=== PATIENT | male | born 1945 ===

== ENCOUNTER 2016-10-10 07:58 | Inpatient (IN) | payer MEDICARE ==
[2016-10-10 07:58] VITALS: BMI 40.6
[2016-10-10 10:24] LABS: BASO # 0.1 K/uL (0.0-0.2); BASO % 0.8 % (0.0-2.0); EOS # 0.3 K/uL (0.0-0.7); EOS % 2.6 % (0.0-4.0); HEMATOCRIT 36.6 % (35.0-51.0); MEAN CELL VOLUME 89.4 fL (80.0-94.0); MEAN CORPUSCULAR HGB CONC 33.6 g/dL (33.0-37.0); MEAN PLATELET VOLUME 9.3 fL (7.2-11.7); MONO # 0.6 K/uL (0.0-0.8); MONO % 6.2 % (0.0-10.0); RED CELL DISTRIBUTION WIDTH 13.2 % (11.5-14.5); WHITE BLOOD COUNT 10.5 K/uL (4.8-10.8)
--- NOTE | 2016-10-10 10:25 | CT ---
PROCEDURE: CT HEAD WITHOUT CONTRAST. HISTORY: falling/weakness COMPARISON: None available. TECHNIQUE: Axial computed tomography images were obtained through the head/brain without intravenous contrast. Radiation dose: Total exam DLP = 1234.94 mGy-cm. This CT exam was performed using one or more of the following dose reduction techniques: Automated exposure control, adjustment of the mA and/or kV according to patient size, and/or use of iterative reconstruction technique. FINDINGS: HEMORRHAGE: No intracranial hemorrhage. BRAIN: Diffuse atrophy with prominence of the ventricles and sulci noted. More focal region of atrophy noted within the left parietal lobe. No mass effect or edema. Dense intracranial atherosclerosis. Scattered periventricular and subcortical white matter hypodensities, which are nonspecific, but often seen with chronic microvascular ischemic disease. Encephalomalacia adjacent to the right occipital horn lateral ventricle. Tiny bilateral lacunar type infarcts involving the basal ganglia. Please note that MRI with diffusion imaging is more sensitive in the detection of acute ischemic event. VENTRICLES: No hydrocephalus. CALVARIUM: Unremarkable. PARANASAL SINUSES: Unremarkable as visualized. No significant inflammatory changes. MASTOID AIR CELLS: Unremarkable as visualized. No inflammatory changes. OTHER FINDINGS: None. IMPRESSION: Atrophy as above. Nonspecific white matter changes. Encephalomalacia adjacent to the right occipital horn lateral ventricle. Tiny bilateral lacunar type infarcts involving the basal ganglia. Please note that MRI with diffusion imaging is more sensitive in the detection of acute ischemic event.
[2016-10-10 10:33] LABS: INR 0.9
[2016-10-10 10:35] LABS: CHLORIDE 103 mmol/L (98-107); SODIUM 138 mmol/L (132-148)
[2016-10-10 10:37] LABS: BILIRUBIN,TOTAL 0.7 mg/dL (0.2-1.3); GFR AFRICAN-AMERICAN > 60
[2016-10-10 10:38] LABS: ALKALINE PHOSPHATASE 58 U/L (38-126); ALT/SGPT 33 U/L (21-72); AST/SGOT 24 U/L (17-59); BLOOD UREA NITROGEN 33 mg/dL (9-20); CALCIUM 9.2 mg/dl (8.6-10.4); CARBON DIOXIDE 24 mmol/L (22-30); GLUCOSE,RANDOM 115 mg/dL (75-110); TOTAL PROTEIN 7.7 g/dL (6.3-8.3)
[2016-10-10 11:30] LABS: RBC URINE 1 /hpf (0-3); URINE BACTERIA RARE (<OCC); URINE BILIRUBIN NEGATIVE (NEGATIVE); URINE BLOOD NEGATIVE (NEGATIVE); URINE COLOR Yellow (YELLOW); URINE GLUCOSE (UA) NORMAL (Normal); URINE KETONE NEGATIVE (NEGATIVE); URINE LEUKOCYTE ESTERASE 2+ Leu/uL (Negative); URINE PROTEIN 2+ mg/dL (NEGATIVE); URINE UROBILINOGEN NORMAL mg/dL (0.2-1.0); WBC URINE 19 /hpf (0-5)
--- NOTE | 2016-10-10 12:40 | C.PDOC ---
History Of Present Illness The patient, a 71 y/o male, is brought to the ED by family member for evaluation of generalized weakness which began a few days ago. As per family, patient is ambulatory at baseline; he able to ambulate throughout the house and is able to walk within short distances when outdoors. Within the past two days, patient underwent two episodes of falls caused by weakness. Patient was found on the floor by his son, who was able to assistant accounting manager him with standing up. Today, patient fell and was unable to get up without assistance. Patient denies head injury, LOC, or any other injuries but presents for evaluation of his severe weakness. 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 Family states patient was diagnosed with overactive bladder discontinued use of his prescribed Lasix around 2 months ago. Otherwise, patient denies fever, chills, abdominal pain, back pain, nausea, vomiting, extremity numbness/weakness. Chief Complaint (Nursing): Weakness/Neurological Deficit History Per: Patient, Family History/Exam Limitations: no limitations Onset/Duration Of Symptoms: Days Current Symptoms Are (Timing): Still Present Activity At Onset Of Symptoms: Standing Associated Symptoms Preceding Syncopal Episode: No Predromal Symptoms (Sudden Onset) Seizure Or Post-ictal Symptoms: None Fall Associated With With Symptoms: No Injury As Result Of Fall Additional History Per: Patient, Family Past Medical History Reviewed: Historical Data, Nursing Documentation, Vital Signs Vital Signs: Last Vital Signs Temp 97.7 F 10/10/16 14:40 Pulse 82 10/10/16 14:40 Resp 18 10/10/16 14:40 BP 171/85 H 10/10/16 18:14 Pulse Ox 98 10/10/16 16:16 - Medical History PMH: Arthritis, HTN, Peripheral Edema Denies: Chronic Kidney Disease - [facility] Procedures INSPECTION OF BLADDER, ENDO (06/21/15) RESECTION OF PROSTATE, ENDO (06/21/15) Family History: States: No Known Family Hx - Social History Hx Alcohol Use: No Hx Substance Use: No - Immunization History Hx Tetanus Toxoid Vaccination: No Hx Influenza Vaccination: Yes Hx Pneumococcal Vaccination: Yes Review Of Systems Except As Marked, All Systems Reviewed And Found Negative. Constitutional: Positive for: Weakness (generalized ). Negative for: Fever, Chills Gastrointestinal: Negative for: Nausea, Vomiting, Abdominal Pain Musculoskeletal: Negative for: Back Pain Neurological: Negative for: Other (LOC, head injury ) Physical Exam - Physical Exam Appears: Non-toxic, No Acute Distress, Other (+obese ) Skin: Normal Color, Warm, Dry Head: Atraumatic, Normacephalic, No Tenderness, No Abrasion, No Laceration Eye(s): bilateral: Normal Inspection, PERRL, EOMI Ear(s): Bilateral: Normal Nose: Normal, No Discharge Oral Mucosa: Moist Throat: Normal, No Erythema, No Exudate Neck: Normal ROM, Supple Chest: Symmetrical, No Deformity, No Tenderness Cardiovascular: Rhythm Regular, No Murmur Respiratory: Decreased Breath Sounds (at bilateral bases ), No Rales, No Rhonchi , No Wheezing Gastrointestinal/Abdominal: Soft, No Tenderness, No Guarding, No Rebound Back: Normal Inspection, No Vertebral Tenderness, No Paraspinal Tenderness Extremity: Normal ROM, No Tenderness, No Calf Tenderness, Capillary Refill ( less than 2 seconds ), No Deformity, Swelling (3+ edema to bilateral lower extremities ) Pulses: Left Dorsalis Pedis: Normal, Right Dorsalis Pedis: Normal Neurological/Psych: Oriented x3, Normal Speech, Normal Cognition, Other (no focal deficits ) Gait: Steady ED Course And Treatment - Laboratory Results Result Diagrams: 10/10/16 10:21 10/10/16 10:21 ECG: Interpreted By Me, Viewed By Me ECG Rhythm: Sinus Rhythm Interpretation Of ECG: Sinus Rhythm at rate 80 with first degree AV block. Rate From EC O2 Sat by Pulse Oximetry: 98 (on RA) Pulse Ox Interpretation: Normal - Other Rad CXR X-Ray: Interpreted by Me, Viewed By Me, Read By Radiologist Interpretation: Accession No. : [id number]. Patient Name / ID : RAHAT MORELAND / [id number]. Exam Date : 10/10/2016 08:50:36 ( Approved ). Study Comment : Sex / Age : M / 71Y. Creator : Babita Earl MD. Dictator : Babita Earl MD. Ruby Engineer : Dental Surgeon : Babita Earl MD. Approver2 : Report Date : 10/10/2016 13:32:24. My Comment : . HISTORY: falling/weakness. COMPARISON: Chest x-ray performed 06/07/15. TECHNIQUE: Chest, one view. FINDINGS: Examination limited by habitus and hypoinflation. The patient's chin obscures evaluation of the lung apices. The left lateral chest wall/costophrenic angle excluded from view. LUNGS: No focal consolidation. Please note that chest x-ray has limited sensitivity for the detection of pulmonary masses. PLEURA: No significant pleural effusion identified. No definite pneumothorax . CARDIOVASCULAR: Cardiomegaly. Atherosclerotic calcifications of the aorta. OSSEOUS STRUCTURES: Degenerative changes. VISUALIZED UPPER ABDOMEN: Unremarkable. OTHER FINDINGS: None. IMPRESSION: Limited study. Cardiomegaly. Dense atherosclerotic calcifications of the aorta. Hypoinflation. - CT Scan/US CT Head Other Rad Studies (CT/US): Interpreted By Me, Read By Radiologist, Radiology Report Reviewed CT/US Interpretation: Accession No. : [id number]. Patient Name / ID : RAHAT MORELAND / [id number]. Exam Date : 10/10/2016 09:32:11 ( Approved ). Study Comment : Sex / Age : M / 71Y. Creator : Babita Earl MD. Dictator : Babita Earl MD. Ruby Engineer : Dental Surgeon : Babita Earl MD. Approver2 : Report Date : 10/10/2016 10:24:03. My Comment : . PROCEDURE: CT HEAD WITHOUT CONTRAST. HISTORY: falling/weakness. COMPARISON: None available. TECHNIQUE: Axial computed tomography images were obtained through the head/brain without intravenous contrast. Radiation dose: Total exam DLP = 1234.94 mGy-cm. This CT exam was performed using one or more of the following dose reduction techniques: Automated exposure control, adjustment of the mA and/or kV according to patient size, and/or use of iterative reconstruction technique. FINDINGS: HEMORRHAGE: No intracranial hemorrhage. BRAIN: Diffuse atrophy with prominence of the ventricles and sulci noted. More focal region of atrophy noted within the left parietal lobe. No mass effect or edema. Dense intracranial atherosclerosis. Scattered periventricular and subcortical white matter hypodensities, which are nonspecific, but often seen with chronic microvascular ischemic disease. Encephalomalacia adjacent to the right occipital horn lateral ventricle. Tiny bilateral lacunar type infarcts involving the basal ganglia. Please note that MRI with diffusion imaging is more sensitive in the detection of acute ischemic event. VENTRICLES: No hydrocephalus. CALVARIUM: Unremarkable. PARANASAL SINUSES: Unremarkable as visualized. No significant inflammatory changes. MASTOID AIR CELLS: Unremarkable as visualized. No inflammatory changes. OTHER FINDINGS: None. IMPRESSION: Atrophy as above. Nonspecific white matter changes. Encephalomalacia adjacent to the right occipital horn lateral ventricle. Tiny bilateral lacunar type infarcts involving the basal ganglia. Please note that MRI with diffusion imaging is more sensitive in the detection of acute ischemic event. Progress Note: CT Head, EKG, CXR, and labs ordered and reviewed. Experienced difficulty with IV access on patient, so PICC line was ordered. Nurse was eventually able to find IV access, so PICC line ordered was canceled. Case was d /w who accepted patient to [facility] for observation. Disposition - Disposition Disposition: HOSPITALIZED Disposition Time: 16:15 Condition: FAIR - Clinical Impression Clinical Impression: Weakness, Multiple falls, Near syncope - PA / FOOD PHOTOGRAPHER / Resident Statement MD/DO has reviewed & agrees with the documentation as recorded. - Scribe Statement The provider has reviewed the documentation as recorded by the Scribe (Maura Green) All medical record entries made by the Scribe were at my direction and personally dictated by me. I have reviewed the chart and agree that the record accurately reflects my personal performance of the history, physical exam, medical decision making, and the department course for this patient. I have also personally directed, reviewed, and agree with the discharge instructions and disposition. Decision To Admit - Pt Status Changed To: Hospital Disposition Of: Observation - . Bed Request Type: Telemetry Admitting Physician: Naty Green Patient Diagnosis: Weakness, Multiple falls, Near syncope
--- NOTE | 2016-10-10 13:34 | RAD ---
HISTORY: falling/weakness COMPARISON: Chest x-ray performed 06/07/15 TECHNIQUE: Chest, one view. FINDINGS: Examination limited by habitus and hypoinflation. The patient's chin obscures evaluation of the lung apices. The left lateral chest wall/costophrenic angle excluded from view. LUNGS: No focal consolidation. Please note that chest x-ray has limited sensitivity for the detection of pulmonary masses. PLEURA: No significant pleural effusion identified. No definite pneumothorax . CARDIOVASCULAR: Cardiomegaly. Atherosclerotic calcifications of the aorta. OSSEOUS STRUCTURES: Degenerative changes. VISUALIZED UPPER ABDOMEN: Unremarkable. OTHER FINDINGS: None. IMPRESSION: Limited study. Cardiomegaly. Dense atherosclerotic calcifications of the aorta. Hypoinflation.
--- NOTE | 2016-10-10 18:06 | CP.PCM.HP ---
Past Patient History - Infectious Disease Hx of Infectious Diseases: None - Past Medical History & Family History Past Medical History?: Yes - Past Social History Smoking Status: Never Smoked - CARDIAC Hx Hypertension: Yes Hx Peripheral Edema: Yes - PULMONARY Hx Respiratory Disorders: No - NEUROLOGICAL Hx Neurological Disorder: Yes HX Cerebrovascular Accident: Yes (x2) - HEENT Hx HEENT Problems: Yes Hx Cataracts: Yes (BILAT) - RENAL Hx Chronic Kidney Disease: No - ENDOCRINE/METABOLIC Hx Endocrine Disorders: Yes Hx Diabetes Mellitus Type 2: Yes - HEMATOLOGICAL/ONCOLOGICAL Hx Blood Disorders: No - INTEGUMENTARY Hx Dermatological Problems: No - MUSCULOSKELETAL/RHEUMATOLOGICAL Hx Arthritis: Yes - GASTROINTESTINAL Hx Gastrointestinal Disorders: No - GENITOURINARY/GYNECOLOGICAL Hx Genitourinary Disorders: Yes Hx Prostate Cancer: Yes (per md) - PSYCHIATRIC Hx Substance Use: No - SURGICAL HISTORY Hx Surgeries: Yes Hx Cataract Extraction: Yes (bilat) Other/Comment: I/D RECTAL ABSCESS X 2 - ANESTHESIA Hx Anesthesia: Yes Hx Anesthesia Reactions: No Hx Malignant Hyperthermia: No Meds Allergies/Adverse Reactions: Allergies Allergy/AdvReac Type Severity Reaction Status Date / Time No Known Allergies Allergy Verified 03/13/16 12:32 Results - Vital Signs Recent Vital Signs: Last Vital Signs Temp 97.7 F 10/10/16 14:40 Pulse 82 10/10/16 14:40 Resp 18 10/10/16 14:40 BP 166/84 H 10/10/16 14:40 Pulse Ox 98 10/10/16 16:16 - Labs Result Diagrams: 10/10/16 10:21 10/10/16 10:21 Assessment & Plan - Assessment and Plan (Free Text) Plan: home med neuro ct head [place] same neurowatch protnix lovenox
[2016-10-10] MEDS: Rosuvastatin Calcium 2.5 mg Tab PO SCH (21:29)
[2016-10-10] MEDS: Enoxaparin 120 mg Syringe SC SCH (22:10)
[2016-10-11] MEDS ORDERED: METFORMIN HCL PO SCH ×3 (10:00)
[2016-10-11] MEDS ORDERED: Home Med 1 UNIT (Mirabegron [Myrbetriq] 50 MG) PO SCH (10:00)
[2016-10-11] MEDS ORDERED: SITAGLIPTIN PHOS PO SCH (10:00)
[2016-10-11] MEDS ORDERED: [UNRECOGNIZED DRUG - OTHER] PO SCH (10:00)
[2016-10-11] MEDS ORDERED: GLIPIZIDE PO SCH ×2 (10:00)
[2016-10-11] MEDS ORDERED: Pneumococcal 23-Valent Vaccine IM ONE (10:00)
[2016-10-11] MEDS: Enoxaparin 120 mg Syringe SC SCH (11:35)
[2016-10-11] MEDS: Omega-3-Acid Ethyl Esters 1 GM Cap PO SCH ×2 (11:35→18:00)
[2016-10-11] MEDS: Multiple Vitamins Tab PO SCH (11:35)
[2016-10-11] MEDS: (Novolog) Insulin Aspart, Recombinant 100 u/ml 10 ml vial SC SCH ×3 (14:21→21:33)
--- NOTE | 2016-10-11 14:40 | CP.PCM.PN ---
Subjective - Date & Time of Evaluation Date of Evaluation: 10/11/16 Time of Evaluation: 10:20 - Subjective Subjective: clinically same Objective - Vital Signs/Intake and Output Vital Signs (last 24 hours): Temp Pulse Resp BP Pulse Ox 98.1 F 88 20 160/75 H 95 10/11/16 08:10 10/11/16 12:40 10/11/16 08:10 10/11/16 08:10 10/11/16 12:40 Intake and Output: 10/11/16 10/11/16 06:59 18:59 Intake Total 300 Output Total 400 Balance -100 - Medications Medications: Current Medications Acetaminophen (Tylenol 325mg Tab) 650 mg PO Q6 PRN PRN Reason: Pain, moderate (4-7) Aspirin (Aspirin Chewable) 81 mg PO DAILY [facility] Last Admin: 10/11/16 11:35 Dose: 81 mg Clopidogrel Bisulfate (Plavix) 75 mg PO DAILY [facility] Last Admin: 10/11/16 11:35 Dose: 75 mg Enoxaparin Sodium (Lovenox) 120 mg SC Q12 [facility] Last Admin: 10/11/16 11:35 Dose: 120 mg Home Med (Dimercaptopropanesulfonate Sod) 1 tab PO DAILY [facility] Home Med (Mirabegron [Myrbetriq]) 50 mg PO BID [facility] Home Med (Sitagliptin Phos/Metformin Hcl [Janumet 50-500 Mg Tablet]) 1 each PO BID [facility] Home Med (Glipizide/Metformin Hcl [Glipizide-Metformin 5-500 Mg]) 1 tab PO BID [facility] Insulin Aspart (Novolog) 0 unit SC ACHS [facility] PRN Reason: Protocol Last Admin: 10/11/16 14:21 Dose: 4 unit Losartan Potassium (Cozaar) 50 mg PO DAILY [facility] Last Admin: 10/11/16 11:35 Dose: 50 mg Multivitamins (Hexavitamin) 1 tab PO DAILY [facility] Last Admin: 10/11/16 11:35 Dose: 1 tab [id number] Ethyl Esters (Lovaza) 1 gm PO BID [facility] Last Admin: 10/11/16 11:35 Dose: 1 gm Pregabalin (Lyrica) 75 mg PO DAILY [facility] Last Admin: 10/11/16 11:35 Dose: 75 mg Rosuvastatin Calcium (Crestor) 2.5 mg PO HS [facility] Last Admin: 10/10/16 21:29 Dose: 2.5 mg - Labs Labs: PT 10.7 SECONDS (9.7-12.2) 10/10/16 10:21 INR 0.9 10/10/16 10:21 APTT 30 SECONDS (21-34) 10/10/16 10:21 - Constitutional Appears: Well - Head Exam Head Exam: ATRAUMATIC, NORMAL INSPECTION, NORMOCEPHALIC - Eye Exam Eye Exam: EOMI, Normal appearance, PERRL Pupil Exam: NORMAL ACCOMODATION, PERRL - ENT Exam ENT Exam: Mucous Membranes Moist, Normal Exam - Neck Exam Neck Exam: Full ROM, Normal Inspection. absent: Lymphadenopathy - Respiratory Exam Respiratory Exam: Decreased Breath Sounds - Cardiovascular Exam Cardiovascular Exam: REGULAR RHYTHM, +S1, +S2 - GI/Abdominal Exam GI & Abdominal Exam: Soft, Diminished Bowel Sounds - Rectal Exam Rectal Exam: Deferred
--- NOTE | 2016-10-11 15:07 | VASCLAB ---
PROCEDURE: Lower Extremity Venous Duplex Exam. HISTORY: DVT PRIORS: None. TECHNIQUE: Bilateral common femoral, femoral, popliteal and posterior tibial, peroneal and great saphenous veins were evaluated. Flow was assessed with color Doppler, compressibility, assessment of phasic flow and augmentation response. Report prepared by NITISH Vázquez, RVT FINDINGS: RIGHT: 1. Common Femoral Vein: 1.1. Compressibility - Fully compressible: Thrombus - None : Flow - Phasic: Augmentation -Normal: Reflux - None. 2. Femoral Vein: 2.1. Compressibility - Fully compressible: Thrombus - None : Flow - Phasic: Augmentation -Normal: Reflux - None. 3. Popliteal Vein: 3.1. Compressibility - Fully compressible: Thrombus - None : Flow - Phasic: Augmentation -Normal: Reflux - None. 4. Posterior Tibial Vein: 4.1. Compressibility - Fully compressible: Thrombus - None: Flow - Phasic: Augmentation -Normal: Reflux - None. 5. Peroneal Vein: 5.1. Compressibility - Fully compressible: Thrombus - None: Flow - Phasic: Augmentation -Normal: Reflux - None. 6. Great Saphenous Vein: 6.1. Compressibility - Fully compressible: Thrombus - None: Flow - Phasic: Augmentation - Normal: Reflux - None. LEFT: 1. Common Femoral Vein: 1.1. Compressibility - Fully compressible: Thrombus - None: Flow - Phasic: Augmentation -Normal: Reflux - None. 2. Femoral Vein: 2.1. Compressibility - Fully compressible: Thrombus - None: Flow - Phasic: Augmentation -Normal: Reflux - None. 3. Popliteal Vein: 3.1. Compressibility - Fully compressible: Thrombus - None : Flow - Phasic: Augmentation -Normal: Reflux - None. 4. Posterior Tibial Vein: 4.1. Compressibility - Fully compressible: Thrombus - None: Flow - Phasic: Augmentation -Normal: Reflux - None. 5. Peroneal Vein: 5.1. Compressibility - Fully compressible: Thrombus - None: Flow - Phasic: Augmentation -Normal: Reflux - None. 6. Great Saphenous Vein: 6.1. Compressibility - Fully compressible: Thrombus - None: Flow - Phasic: Augmentation - Normal: Reflux - None. OTHER FINDINGS: Right: None significant. Left: None significant. IMPRESSION: Right: No evidence of deep or superficial vein thrombosis of the right lower extremity. Normal valve function noted of the right side. Left: No evidence of deep or superficial vein thrombosis of the left lower extremity. Normal valve function noted of the left side.
[2016-10-11] MEDS: Rosuvastatin Calcium 2.5 mg Tab PO SCH (22:04)
[2016-10-12] MEDS: (Novolog) Insulin Aspart, Recombinant 100 u/ml 10 ml vial SC SCH ×4 (09:37→22:57)
[2016-10-12] MEDS: Omega-3-Acid Ethyl Esters 1 GM Cap PO SCH ×2 (09:39→18:30)
[2016-10-12] MEDS: Multiple Vitamins Tab PO SCH (09:39)
[2016-10-12] MEDS: Enoxaparin 40 mg Syringe SC SCH (09:45)
--- NOTE | 2016-10-12 12:02 | CARD ---
APPROVED REPORT EKG Measurement Heart [id number] OR [id number] <Conclusion> Sinus rhythm with 1st degree AV block Left axis deviation Possible Anterior infarct, age undetermined Abnormal ECG
--- NOTE | 2016-10-12 18:27 | CP.PCM.PN ---
Subjective - Date & Time of Evaluation Date of Evaluation: 10/12/16 Objective - Vital Signs/Intake and Output Vital Signs (last 24 hours): Temp Pulse Resp BP Pulse Ox 98.1 F 82 20 174/84 H 96 10/12/16 15:29 10/12/16 15:29 10/12/16 15:29 10/12/16 15:29 10/12/16 15:29 - Medications Medications: Current Medications Acetaminophen (Tylenol 325mg Tab) 650 mg PO Q6 PRN PRN Reason: Pain, moderate (4-7) Last Admin: 10/12/16 03:37 Dose: 650 mg Aspirin (Aspirin Chewable) 81 mg PO DAILY [facility] Last Admin: 10/12/16 09:39 Dose: 81 mg Clopidogrel Bisulfate (Plavix) 75 mg PO DAILY [facility] Last Admin: 10/12/16 09:39 Dose: 75 mg Enoxaparin Sodium (Lovenox) 40 mg SC DAILY [facility] Last Admin: 10/12/16 09:45 Dose: 40 mg Home Med (Dimercaptopropanesulfonate Sod) 1 tab PO DAILY [facility] Home Med (Mirabegron [Myrbetriq]) 50 mg PO BID [facility] Home Med (Sitagliptin Phos/Metformin Hcl [Janumet 50-500 Mg Tablet]) 1 each PO BID [facility] Home Med (Glipizide/Metformin Hcl [Glipizide-Metformin 5-500 Mg]) 1 tab PO BID [facility] Insulin Aspart (Novolog) 0 unit SC ACHS [facility] PRN Reason: Protocol Last Admin: 10/12/16 17:35 Dose: 3 unit Losartan Potassium (Cozaar) 50 mg PO DAILY [facility] Last Admin: 10/12/16 09:39 Dose: 50 mg Multivitamins (Hexavitamin) 1 tab PO DAILY [facility] Last Admin: 10/12/16 09:39 Dose: 1 tab Ydlga-[id number] Ethyl Esters (Lovaza) 1 gm PO BID [facility] Last Admin: 10/12/16 09:39 Dose: 1 gm Pregabalin (Lyrica) 75 mg PO DAILY [facility] Last Admin: 10/12/16 09:39 Dose: 75 mg Rosuvastatin Calcium (Crestor) 2.5 mg PO HS [facility] Last Admin: 10/11/16 22:04 Dose: 2.5 mg - Labs Labs: PT 10.7 SECONDS (9.7-12.2) 10/10/16 10:21 INR 0.9 10/10/16 10:21 APTT 30 SECONDS (21-34) 10/10/16 10:21
--- NOTE | 2016-10-12 19:47 | CON ---
DATE: 10/12/2016 REASON FOR CONSULTATION: Leg weakness and frequent falls. CHIEF COMPLAINT: The patient was admitted with a history of leg weakness. From neurological point of view, I was called in to evaluate his leg weakness. HISTORY OF PRESENT ILLNESS: The patient is a 71-year-old right-handed heavily built, morbidly obese, right-handed male in usual state of health as per his stating that he lost his ability of walking for the last 2 months. Lately he was not able to walk, as a way he is mostly is restricted in the bed or chair. The risk of fall is potentially there, that made him not walk. No history of fall, no history of recent fall, no history of loss of consciousness , no history of head trauma. PAST MEDICAL HISTORY: Significant to stroke on his left side, right-sided weakness as per the history in 1999 and he had another stroke, could not able to recall what was the manifestation from the stroke in last April. The patient also suffering from hypertension, non-insulin dependent diabetes mellitus. SOCIAL HISTORY: Current status of smoking. He never smoked. No history of alcohol use. 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 ALLERGIES: No known allergies. REVIEW OF SYSTEMS: As per H and P. MEDICATIONS: Aspirin, Cozaar, Crestor, Lyrica, Lovenox, insulin. PHYSICAL EXAMINATION: VITAL SIGNS: Blood pressure 174/84, mean arterial pressure 114, respiratory rate 16, temperature afebrile. NECK: Supple. No carotid bruit. HEART: Sounds regular. There is evidence of systolic murmur heard. EXTREMITIES: Both legs are externally rotated with 1+ pitting edema. NEUROLOGIC EXAMINATION: MENTAL STATUS EXAMINATION: He is awake, alert, oriented to person, place, and time. Speech is mildly dysarthric; however, he was able to communicate and follows 1 to 2-step command, with significant right and left confusion. CRANIAL NERVE EXAMINATION: Visual field: Responds to visual threat; however, significant weakness of all ocular movement, particularly vertical gaze is admitted. Good corneal reflex. Good gag reflex. MOTOR: He was able to lift both upper extremities against gravity. While keeping hands straight in curving of the fingers noted on his right side. He has a significant weakness of the right leg to compare with the left leg. Both legs are weak with a strength of 4/5. DEEP TENDON REFLEXES: Biceps, brachioradialis, triceps, biceps 2+, left side 1+ . Both knees, both ankles are absent. Plantars are mute. SENSORY EXAMINATION: Responds to pain symmetrically on both sides. COORDINATION: [id number] mild dysmetria on both sides. GAIT: Deferred at this time. 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 The patient also suffering from significant bilateral symmetric sensory and motor neuropathy. His current examination of the eye movement is significantly decreased vertical movement. There is a possibility of progressive supranuclear palsy, which is degenerative disease which also another possibility if above workup is negative. CT of the head reviewed by me showed diffuse atrophy with encephalomalacia seen on both MCA territory distribution and significant periventricular subcortical infarct also noted. LABORATORY DATA: BLOOD WORKUP: WBC 10.5, hemoglobin 12.3, hematocrit 36.6, platelet 206. PT 10.7, INR 0.9, PTT 30. Sodium 138, potassium 5.0, chloride 103, BUN 33, creatinine 1.4, glucose 238. Urinalysis shows 2+ esterase, 2+ protein. RECOMMENDATIONS: 1. MRI of the brain. 2. Carotid Doppler. 3. EEG. 4. Blood workup as per the order. 5. The patient should be kept on fall precaution and bedside physical therapy should be started. The patient's weight reduction, diabetic control and blood pressure control been discussed well with the patient as well as his . The patient also recommended to have polysomnogram, which should rule in or out central sleep apnea versus obstructive sleep apnea, which could be the considerable hidden risk factors, should be treated at present. In the meantime, I would continue the current management with antiplatelets. The patient should benefit from a cardiac workup as well during this admission. Jesus Zimmerman MD cc: [id number] TT: 10/12/2016 19:46:26 Confirmation # [id number] Dictation # [id number] jn LENORA
[2016-10-12] MEDS: Rosuvastatin Calcium 2.5 mg Tab PO SCH (21:02)
[2016-10-12 21:05] LABS: THYROID STIMULATING HORMONE 1.26 mIU/L (0.46-4.68)
[2016-10-12 21:40] LABS: FOLATE > 20.0 ng/mL
[2016-10-12 21:59] LABS: FREE T4 1.41 ng/dL (0.78-2.19)
--- NOTE | 2016-10-13 07:49 | PN ---
DATE: 10/13/2016 TIME OF EVALUATION: 7:25 a.m. NEUROLOGICAL PROBLEM: Ataxia versus leg weakness secondary to peripheral neuropathy. PHYSICAL EXAMINATION: VITAL SIGNS: Blood pressure 152/80, mean arterial pressure of 104, respiratory rate 18, temperature 98 degrees Fahrenheit, pulse rate 81. NEUROLOGIC: The patient is awake, alert. Speech seems to be mildly dysarthric. Pharyngeal pooling of saliva also noted. Rest of the examination is unchanged. He could move all 4 extremities against gravity with asymmetri c reflexes also noted earlier. 1. The patient agreed to go MRI unless he gets sedation. 2. DVT prophylaxis. 3. Get him out of the bed and physical therapy should be entertained as early as possible. 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 This has been discussed with him as well as his . The patient will be followed closely. The workup is in progress. Jesus Zimmerman MD cc: [id number] TT: 10/13/2016 07:48:38 Confirmation # [id number] Dictation # [id number]
[2016-10-13] MEDS: (Novolog) Insulin Aspart, Recombinant 100 u/ml 10 ml vial SC SCH ×4 (08:27→21:48)
[2016-10-13] MEDS: Multiple Vitamins Tab PO SCH (10:15)
[2016-10-13] MEDS: Omega-3-Acid Ethyl Esters 1 GM Cap PO SCH ×2 (10:15→17:51)
[2016-10-13] MEDS: Enoxaparin 40 mg Syringe SC SCH (10:15)
[2016-10-13 11:20] LABS: BASO % 0.3 % (0.0-2.0); EOS # 0.2 K/uL (0.0-0.7); HEMATOCRIT 37.9 % (35.0-51.0); LYMPH # 1.3 K/uL (1.0-4.3); LYMPH % 13.6 % (20.0-40.0); MEAN CELL VOLUME 88.8 fL (80.0-94.0); MEAN CORPUSCULAR HEMOGLOBIN 29.4 pg (27.0-31.0); MEAN CORPUSCULAR HGB CONC 33.1 g/dL (33.0-37.0); MEAN PLATELET VOLUME 9.5 fL (7.2-11.7); MONO # 0.8 K/uL (0.0-0.8); MONO % 8.5 % (0.0-10.0); RED CELL DISTRIBUTION WIDTH 13.1 % (11.5-14.5); WHITE BLOOD COUNT 9.3 K/uL (4.8-10.8)
[2016-10-13 11:35] LABS: CHLORIDE 100 mmol/L (98-107)
[2016-10-13 11:36] LABS: POTASSIUM 4.2 mmol/L (3.6-5.2); SODIUM 135 mmol/L (132-148)
[2016-10-13 11:38] LABS: ALB/GLOB RATIO 0.8 (1.0-2.1); ALKALINE PHOSPHATASE 65 U/L (38-126); ALT/SGPT 60 U/L (21-72); AST/SGOT 55 U/L (17-59); BILIRUBIN,TOTAL 0.6 mg/dL (0.2-1.3); BLOOD UREA NITROGEN 23 mg/dL (9-20); CARBON DIOXIDE 25 mmol/L (22-30); GFR AFRICAN-AMERICAN > 60; TOTAL PROTEIN 6.9 g/dL (6.3-8.3)
[2016-10-13 11:39] LABS: CALCIUM 8.5 mg/dl (8.6-10.4); GLUCOSE,RANDOM 368 mg/dL (75-110)
--- NOTE | 2016-10-13 13:32 | MRI ---
PROCEDURE: MRI BRAIN WITHOUT CONTRAST HISTORY: new stroke ? COMPARISON: This noncontrast head CT from 10/10/2016 TECHNIQUE: Multiplanar, multisequence MR images of the brain were obtained without intravenous contrast enhancement. Examination is degraded by patient motion. FINDINGS: HEMORRHAGE: None DWI: There is a small focus of acute/subacute infarction in the right paramedian frontal lobe. BRAIN PARENCHYMA: There are moderate chronic microangiopathic changes. There is cystic encephalomalacia and gliosis in the right posterior parietal lobe and left cerebellar hemorrhage. There is an old infarction in the left anterior mickie. Abnormal FLAIR hyperintensity within the 4th ventricle is likely related to CSF flow artifact. There is no mass, mass effect or abnormal extra-axial fluid collection. VENTRICLES: There is moderate age-related global parenchymal volume loss and proportionate enlargement of the ventricles and cortical sulci. CRANIUM: There is normal bone marrow signal pattern. ORBITS: Grossly unremarkable. PARANASAL SINUSES/MASTOIDS: Predominantly clear. VASCULAR SYSTEM: There are normal signal voids in the larger intracranial arteries. OTHER FINDINGS: None. IMPRESSION: 1. Small focus of acute infarction in the right paramedian frontal lobe. 2. Old infarctions in the right posterior parietal lobe, left anterior mickie and left cerebellar hemisphere. 3. Moderate chronic microangiopathic changes and moderate age-related global parenchymal volume loss. Important findings were discussed with Dr. Jesus Zimmerman 10/14/2016 at 1:25 p.m.
--- NOTE | 2016-10-13 17:03 | CP.PCM.PN ---
Subjective - Date & Time of Evaluation Date of Evaluation: 10/13/16 Time of Evaluation: 10:20 - Subjective Subjective: clinically same Objective - Vital Signs/Intake and Output Vital Signs (last 24 hours): Temp Pulse Resp BP Pulse Ox 97.6 F 86 20 170/89 H 95 10/13/16 15:25 10/13/16 15:25 10/13/16 15:25 10/13/16 15:25 10/13/16 15:25 - Medications Medications: Current Medications Acetaminophen (Tylenol 325mg Tab) 650 mg PO Q6 PRN PRN Reason: Pain, moderate (4-7) Last Admin: 10/13/16 16:13 Dose: 650 mg Aspirin (Aspirin Chewable) 81 mg PO DAILY [facility] Last Admin: 10/13/16 10:15 Dose: 81 mg Clopidogrel Bisulfate (Plavix) 75 mg PO DAILY [facility] Last Admin: 10/13/16 10:15 Dose: 75 mg Enoxaparin Sodium (Lovenox) 40 mg SC DAILY [facility] Last Admin: 10/13/16 10:15 Dose: 40 mg Home Med (Dimercaptopropanesulfonate Sod) 1 tab PO DAILY [facility] Home Med (Mirabegron [Myrbetriq]) 50 mg PO BID [facility] Home Med (Sitagliptin Phos/Metformin Hcl [Janumet 50-500 Mg Tablet]) 1 each PO BID [facility] Home Med (Glipizide/Metformin Hcl [Glipizide-Metformin 5-500 Mg]) 1 tab PO BID [facility] Insulin Aspart (Novolog) 0 unit SC ACHS [facility] PRN Reason: Protocol Last Admin: 10/13/16 12:49 Dose: 10 unit Losartan Potassium (Cozaar) 50 mg PO DAILY [facility] Last Admin: 10/13/16 10:15 Dose: 50 mg Multivitamins (Hexavitamin) 1 tab PO DAILY [facility] Last Admin: 10/13/16 10:15 Dose: 1 tab Hemnp-5-Oyck Ethyl Esters (Lovaza) 1 gm PO BID [facility] Last Admin: 10/13/16 10:15 Dose: 1 gm Pregabalin (Lyrica) 75 mg PO DAILY [facility] Last Admin: 10/13/16 10:15 Dose: 75 mg Rosuvastatin Calcium (Crestor) 2.5 mg PO HS [facility] Last Admin: 10/12/16 21:02 Dose: 2.5 mg - Labs Labs: 10/13/16 11:10 10/13/16 11:10 PT 10.7 SECONDS (9.7-12.2) 10/10/16 10:21 INR 0.9 10/10/16 10:21 APTT 30 SECONDS (21-34) 10/10/16 10:21 - Constitutional Appears: Well - Head Exam Head Exam: ATRAUMATIC, NORMAL INSPECTION, NORMOCEPHALIC - Eye Exam Eye Exam: EOMI, Normal appearance, PERRL Pupil Exam: NORMAL ACCOMODATION, PERRL - ENT Exam ENT Exam: Mucous Membranes Moist, Normal Exam - Neck Exam Neck Exam: Full ROM, Normal Inspection. absent: Lymphadenopathy - Respiratory Exam Respiratory Exam: Decreased Breath Sounds - Cardiovascular Exam Cardiovascular Exam: REGULAR RHYTHM, +S1, +S2 - GI/Abdominal Exam GI & Abdominal Exam: Soft, Diminished Bowel Sounds - Rectal Exam Rectal Exam: Deferred Assessment and Plan (1) Acute CVA (cerebrovascular accident) Status: Acute (2) Multiple falls Status: Acute (3) Near syncope Status: Acute (4) Weakness Status: Acute
[2016-10-13] MEDS ORDERED: Rosuvastatin Calcium 2.5 mg Tab PO SCH (21:52)
[2016-10-13] MEDS: Rosuvastatin Calcium 2.5 mg Tab PO SCH (21:52)
--- NOTE | 2016-10-13 21:54 | CP.PCM.CON ---
History of Present Illness - History of Present Illness History of Present Illness: CC: CVA The patient, a 71 y/o male, is brought to the ED by family member for evaluation of generalized weakness which began a few days ago. As per family, patient is ambulatory at baseline; he able to ambulate throughout the house and is able to walk within short distances when outdoors. Within the past two days, patient underwent two episodes of falls caused by weakness. Patient was found on the floor by his son, who was able to assistant professor of criminal justice him with standing up. On the day of the admission, patient fell and was unable to get up without assistance. Patient denies head injury, LOC, or any other injuries but presents for evaluation of his severe weakness. 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 Family states patient was diagnosed with overactive bladder discontinued use of his prescribed Lasix around 2 months ago. Otherwise, patient denies fever, chills, abdominal pain, back pain, nausea, vomiting, extremity numbness/weakness. Chief Complaint (Nursing): Weakness/Neurological Deficit History Per: Patient, Family History/Exam Limitations: no limitations Onset/Duration Of Symptoms: Days Activity At Onset Of Symptoms: Standing Associated Symptoms Preceding Syncopal Episode: No Predromal Symptoms (Sudden Onset) Seizure Or Post-ictal Symptoms: None Fall Associated With With Symptoms: No Injury As Result Of Fall Additional History Per: Patient, Family - Medical History PMH: Arthritis, HTN, Peripheral Edema Denies: Chronic Kidney Disease - [facility] Procedures INSPECTION OF BLADDER, ENDO (06/21/15) RESECTION OF PROSTATE, ENDO (06/21/15) Family History: States: No Known Family Hx - Social History Hx Alcohol Use: No Hx Substance Use: No - Immunization History Hx Tetanus Toxoid Vaccination: No Hx Influenza Vaccination: Yes Hx Pneumococcal Vaccination: Yes Review Of Systems Except As Marked, All Systems Reviewed And Found Negative. Constitutional: Positive for: Weakness (generalized ). Negative for: Fever, Chills Gastrointestinal: Negative for: Nausea, Vomiting, Abdominal Pain Musculoskeletal: Negative for: Back Pain Neurological: Negative for: Other (LOC, head injury ) Physical Exam - Physical Exam Appears: Non-toxic, No Acute Distress, Other (+obese ) Skin: Normal Color, Warm, Dry Head: Atraumatic, Normacephalic, No Tenderness, No Abrasion, No Laceration Eye(s): bilateral: Normal Inspection, PERRL, EOMI Ear(s): Bilateral: Normal Nose: Normal, No Discharge Oral Mucosa: Moist Throat: Normal, No Erythema, No Exudate Neck: Normal ROM, Supple Chest: Symmetrical, No Deformity, No Tenderness Cardiovascular: Rhythm Regular, No Murmur Respiratory: Decreased Breath Sounds (at bilateral bases ), No Rales, No Rhonchi , No Wheezing Gastrointestinal/Abdominal: Soft, No Tenderness, No Guarding, No Rebound Back: Normal Inspection, No Vertebral Tenderness, No Paraspinal Tenderness Extremity: Normal ROM, No Tenderness, No Calf Tenderness, Capillary Refill ( less than 2 seconds ), No Deformity, Swelling (3+ edema to bilateral lower extremities ) Pulses: Left Dorsalis Pedis: Normal, Right Dorsalis Pedis: Normal Neurological/Psych: Oriented x3, Normal Speech, Normal Cognition, Other (no focal deficits ) Gait: Steady Past Patient History - Infectious Disease Hx of Infectious Diseases: None - Past Medical History & Family History Past Medical History?: Yes - Past Social History Smoking Status: Never Smoked - CARDIAC Hx Hypertension: Yes - PULMONARY Hx Respiratory Disorders: No - NEUROLOGICAL HX Cerebrovascular Accident: Yes - HEENT Hx HEENT Problems: Yes Hx Cataracts: Yes (BILAT) - RENAL Hx Chronic Kidney Disease: No - ENDOCRINE/METABOLIC Hx Endocrine Disorders: Yes Hx Diabetes Mellitus Type 2: Yes - HEMATOLOGICAL/ONCOLOGICAL Hx Blood Disorders: No - INTEGUMENTARY Hx Dermatological Problems: No - MUSCULOSKELETAL/RHEUMATOLOGICAL Hx Arthritis: Yes - GASTROINTESTINAL Hx Gastrointestinal Disorders: No - GENITOURINARY/GYNECOLOGICAL Hx Genitourinary Disorders: Yes Hx Prostate Cancer: Yes (per md) Other/Comment: states he had prostate surgery done - PSYCHIATRIC Hx Psychophysiologic Disorder: No Hx Substance Use: No - SURGICAL HISTORY Hx Surgeries: Yes Hx Cataract Extraction: Yes (bilat) Other/Comment: I/D RECTAL ABSCESS X 2 - ANESTHESIA Hx Anesthesia: Yes Hx Anesthesia Reactions: No Hx Malignant Hyperthermia: No Meds Allergies/Adverse Reactions: Allergies Allergy/AdvReac Type Severity Reaction Status Date / Time No Known Allergies Allergy Verified 03/13/16 12:32 - Medications Medications: Current Medications Acetaminophen (Tylenol 325mg Tab) 650 mg PO Q6 PRN PRN Reason: Pain, moderate (4-7) Last Admin: 10/13/16 16:13 Dose: 650 mg Aspirin (Aspirin Chewable) 81 mg PO DAILY [facility] Last Admin: 10/13/16 10:15 Dose: 81 mg Clopidogrel Bisulfate (Plavix) 75 mg PO DAILY [facility] Last Admin: 10/13/16 10:15 Dose: 75 mg Enoxaparin Sodium (Lovenox) 40 mg SC DAILY [facility] Last Admin: 10/13/16 10:15 Dose: 40 mg Home Med (Dimercaptopropanesulfonate Sod) 1 tab PO DAILY [facility] Home Med (Mirabegron [Myrbetriq]) 50 mg PO BID [facility] Home Med (Sitagliptin Phos/Metformin Hcl [Janumet 50-500 Mg Tablet]) 1 each PO BID [facility] Home Med (Glipizide/Metformin Hcl [Glipizide-Metformin 5-500 Mg]) 1 tab PO BID [facility] Hydralazine HCl (Apresoline) 25 mg PO TID [facility] Last Admin: 10/13/16 18:16 Dose: 25 mg Insulin Aspart (Novolog) 0 unit SC [facility] PRN Reason: Protocol Last Admin: 10/13/16 21:48 Dose: Not Given Losartan Potassium (Cozaar) 50 mg PO DAILY [facility] Last Admin: 10/13/16 10:15 Dose: 50 mg Multivitamins (Hexavitamin) 1 tab PO DAILY [facility] Last Admin: 10/13/16 10:15 Dose: 1 tab [id number]-[id number] Ethyl Esters (Lovaza) 1 gm PO BID [facility] Last Admin: 10/13/16 17:51 Dose: 1 gm Pregabalin (Lyrica) 75 mg PO DAILY [facility] Last Admin: 10/13/16 10:15 Dose: 75 mg Rosuvastatin Calcium (Crestor) 10 mg PO [facility] Results - Vital Signs Recent Vital Signs: Last Vital Signs Temp 97.6 F 10/13/16 15:25 Pulse 87 10/13/16 16:00 Resp 20 10/13/16 15:25 BP 170/89 H 10/13/16 15:25 Pulse Ox 95 10/13/16 15:25 - Labs Result Diagrams: 10/13/16 11:10 10/13/16 11:10 Labs: Laboratory Results - last 24 hr 10/12/16 10/12/16 10/12/16 20:06 22:00 23:59 WBC RBC Hgb Hct MCV MCH MCHC RDW Plt Count MPV Neut % (Auto) Lymph % (Auto) Scott % (Auto) Eos % (Auto) Baso % (Auto) Neut # Lymph # Scott # Eos # Baso # Sodium Potassium Chloride Carbon Dioxide Anion Gap BUN Creatinine Est GFR ( Amer) Est GFR (Non-Af Amer) POC Glucose (mg/dL) 279 H 239 H Random Glucose Calcium Total Bilirubin AST ALT Alkaline Phosphatase Total Protein Albumin Globulin Albumin/Globulin Ratio Free T4 1.41 TSH 3rd Generation 1.26 10/13/16 10/13/16 10/13/16 06:58 10:58 11:10 WBC 9.3 RBC 4.27 L Hgb 12.5 Hct 37.9 MCV 88.8 MCH 29.4 MCHC 33.1 RDW 13.1 Plt Count 203 MPV 9.5 Neut % (Auto) 75.6 H Lymph % (Auto) 13.6 L Scott % (Auto) 8.5 Eos % (Auto) 2.0 Baso % (Auto) 0.3 Neut # 7.1 H Lymph # 1.3 Scott # 0.8 Eos # 0.2 Baso # 0.0 Sodium Potassium Chloride Carbon Dioxide Anion Gap BUN Creatinine Est GFR ( Amer) Est GFR (Non-Af Amer) POC Glucose (mg/dL) 230 H 402 H* Random Glucose Calcium Total Bilirubin AST ALT Alkaline Phosphatase Total Protein Albumin Globulin Albumin/Globulin Ratio Free T4 TSH 3rd Generation 10/13/16 10/13/16 10/13/16 11:10 16:16 21:08 WBC RBC Hgb Hct MCV MCH MCHC RDW Plt Count MPV Neut % (Auto) Lymph % (Auto) Scott % (Auto) Eos % (Auto) Baso % (Auto) Neut # Lymph # Scott # Eos # Baso # Sodium 135 Potassium 4.2 Chloride 100 Carbon Dioxide 25 Anion Gap 14 BUN 23 H Creatinine 1.2 Est GFR ( Amer) > 60 Est GFR (Non-Af Amer) 60 POC Glucose (mg/dL) 256 H 236 H Random Glucose 368 H Calcium 8.5 L Total Bilirubin 0.6 AST 55 ALT 60 Alkaline Phosphatase 65 Total Protein 6.9 Albumin 3.1 L D Globulin 3.8 Albumin/Globulin Ratio 0.8 L Free T4 TSH 3rd Generation Assessment & Plan - Assessment and Plan (Free Text) Assessment: 1. CVA 2. HTN 3. Obesity Check ECHO, Carotids and neuro eval
[2016-10-14] MEDS ORDERED: DiphenhydrAMINE 50 mg/ml Inj IVP STA (02:15)
--- NOTE | 2016-10-14 07:41 | PN ---
DATE: 10/14/2016 NEUROLOGICAL PROBLEM: Subacute process of leg weakness with anterior cerebral artery ischemic proces s on his right side. PHYSICAL EXAMINATION: VITAL SIGNS: Blood pressure 150/79, mean arterial pressure 102, respiratory rate 20, temperature 97. 8, pulse rate 77 and regular. The patient was moved to the stroke floor after diagnosing the anterior cerebral artery ischemic proc ess. RECENT BLOOD WORKUP: Blood glucose of 236, hemoglobin A1c 8.0. RECOMMENDATIONS: The patient does have both anterior as well as posterior cerebral artery ischemic p rocess, small as well as a large vessel disease. Considering his significant risk factors, patient s kasandrauld have a transesophageal echocardiogram to rule out the status of left atrium as well as any cryp togenic stroke. The patient is on aspirin as well as Plavix. Continue the rest of the management as I have recommend ed earlier. Follow cardiology consult is appreciated. The patient will be followed closely with you. Jesus Zimmerman MD cc: [id number] TT: 10/14/2016 07:40:59 Confirmation # [id number] Dictation # [id number] tn
[2016-10-14] MEDS: (Novolog) Insulin Aspart, Recombinant 100 u/ml 10 ml vial SC SCH ×4 (08:02→22:00)
[2016-10-14] MEDS: Multiple Vitamins Tab PO SCH (09:25)
[2016-10-14] MEDS: Enoxaparin 40 mg Syringe SC SCH (09:25)
[2016-10-14] MEDS: Omega-3-Acid Ethyl Esters 1 GM Cap PO SCH ×2 (09:29→18:00)
--- NOTE | 2016-10-14 12:49 | CP.PCM.PN ---
Subjective - Date & Time of Evaluation Date of Evaluation: 10/14/16 Time of Evaluation: 10:20 - Subjective Subjective: clinically same Objective - Vital Signs/Intake and Output Vital Signs (last 24 hours): Temp Pulse Resp BP Pulse Ox 97.5 F L 80 20 170/98 H 97 10/14/16 07:56 10/14/16 07:56 10/14/16 07:56 10/14/16 07:56 10/14/16 07:56 Intake and Output: 10/14/16 10/14/16 06:59 18:59 Output Total 100 Balance -100 - Medications Medications: Current Medications Acetaminophen (Tylenol 325mg Tab) 650 mg PO Q6 PRN PRN Reason: Pain, moderate (4-7) Last Admin: 10/14/16 04:07 Dose: 650 mg Aspirin (Aspirin Chewable) 81 mg PO DAILY [facility] Last Admin: 10/14/16 09:24 Dose: 81 mg Clopidogrel Bisulfate (Plavix) 75 mg PO DAILY [facility] Last Admin: 10/14/16 09:24 Dose: 75 mg Docusate Sodium (Colace) 100 mg PO DAILY [facility] Last Admin: 10/14/16 09:24 Dose: 100 mg Enoxaparin Sodium (Lovenox) 40 mg SC DAILY [facility] Last Admin: 10/14/16 09:25 Dose: 40 mg Home Med (Dimercaptopropanesulfonate Sod) 1 tab PO DAILY [facility] Home Med (Mirabegron [Myrbetriq]) 50 mg PO BID [facility] Home Med (Sitagliptin Phos/Metformin Hcl [Janumet 50-500 Mg Tablet]) 1 each PO BID [facility] Home Med (Glipizide/Metformin Hcl [Glipizide-Metformin 5-500 Mg]) 1 tab PO BID [facility] Hydralazine HCl (Apresoline) 25 mg PO TID [facility] Last Admin: 10/14/16 09:24 Dose: 25 mg Insulin Aspart (Novolog) 0 unit SC ACHS [facility] PRN Reason: Protocol Last Admin: 10/14/16 12:30 Dose: 4 unit Losartan Potassium (Cozaar) 50 mg PO DAILY [facility] Last Admin: 10/14/16 09:24 Dose: 50 mg Multivitamins (Hexavitamin) 1 tab PO DAILY [facility] Last Admin: 10/14/16 09:25 Dose: 1 tab Defqc-5-Rkxz Ethyl Esters (Lovaza) 1 gm PO BID [facility] Last Admin: 10/14/16 09:29 Dose: 1 gm Pregabalin (Lyrica) 75 mg PO DAILY [facility] Last Admin: 10/14/16 09:23 Dose: 75 mg Rosuvastatin Calcium (Crestor) 10 mg PO HS [facility] Last Admin: 10/13/16 22:37 Dose: 10 mg - Labs Labs: 10/13/16 11:10 10/13/16 11:10 PT 10.7 SECONDS (9.7-12.2) 10/10/16 10:21 INR 0.9 10/10/16 10:21 APTT 30 SECONDS (21-34) 10/10/16 10:21 - Constitutional Appears: Well - Head Exam Head Exam: ATRAUMATIC, NORMAL INSPECTION, NORMOCEPHALIC - Eye Exam Eye Exam: EOMI, Normal appearance, PERRL Pupil Exam: NORMAL ACCOMODATION, PERRL - ENT Exam ENT Exam: Mucous Membranes Moist, Normal Exam - Neck Exam Neck Exam: Full ROM, Normal Inspection. absent: Lymphadenopathy - Respiratory Exam Respiratory Exam: Decreased Breath Sounds - Cardiovascular Exam Cardiovascular Exam: REGULAR RHYTHM, +S1, +S2 - GI/Abdominal Exam GI & Abdominal Exam: Soft, Diminished Bowel Sounds - Rectal Exam Rectal Exam: Deferred Assessment and Plan (1) Acute CVA (cerebrovascular accident) Status: Acute (2) Multiple falls Status: Acute (3) Near syncope Status: Acute (4) Weakness Status: Acute
--- NOTE | 2016-10-14 19:43 | CARD ---
APPROVED REPORT EXAM: Two-dimensional and M-mode echocardiogram with Doppler and color Doppler. Other Information Quality : Technically LimitedRhythm : NSR INDICATION CVA/TIA Syncope M-Mode DIMENSIONS RVDd1.68 (2.1-3.2cm)Left Atrium (MM)3.05 (2.5-4.0cm) IVSd0.86 (0.7-1.1cm)Aortic Root3.08 (2.2-3.7cm) LVDd4.65 (4.0-5.6cm)Aortic Cusp Exc.1.60 (1.5-2.0cm) PWd0.86 (0.7-1.1cm)FS (%) 30 % LVDs3.24 (2.0-3.8cm)LVEF (%)58 (>50%) Aortic Valve AoV Peak Rqmgjhxo52.6cm/Grover Peak GR.3mmHg Mitral Valve MV E Qzxmgzjh13.1cm/sMV A Likjoezy69.5cm/sE/A ratio0.7 TDI E/Lateral E'0.0E/Medial E'0.0 Tricuspid Valve TR Peak Vrcudifa911gp/sTR Peak Gr.[id number] LEFT VENTRICLE The left ventricle cavity is small. There is moderate to severe concentric left ventricular hypertrophy. The left ventricular function is normal. The left ventricular ejection fraction is within the normal range. There is normal LV segmental wall motion. Transmitral Doppler flow pattern is Grade I-abnormal relaxation pattern. RIGHT VENTRICLE The right ventricle is normal size. There is normal right ventricular wall thickness. The right ventricular systolic function is normal. ATRIA The left atrium size is normal. The right atrium size is normal. AORTIC VALVE The aortic valve is not well visualized. No aortic regurgitation is present. MITRAL VALVE The mitral valve is not well visualized. There is no mitral valve regurgitation noted. TRICUSPID VALVE The tricuspid valve is normal in structure. There is no tricuspid valve regurgitation noted. GREAT VESSELS The aortic root is normal in size. The IVC is normal in size and collapses >50% with inspiration. PERICARDIAL EFFUSION There is a small loculated anterior pericardial effusion. <Conclusion> Poor Echo window The left ventricle cavity is small. There is moderate to severe concentric left ventricular hypertrophy. The left ventricular function is normal. The left ventricular ejection fraction is within the normal range. There is normal LV segmental wall motion. Transmitral Doppler flow pattern is Grade I-abnormal relaxation pattern.
--- NOTE | 2016-10-14 20:41 | CP.PCM.PN ---
Subjective - Date & Time of Evaluation Date of Evaluation: 10/14/16 Time of Evaluation: 08:05 - Subjective Subjective: Patient seen and evaluated Comfortable Denies chest pain and dyspnea Review Of Systems Except As Marked, All Systems Reviewed And Found Negative. Constitutional: Positive for: Weakness (generalized ). Negative for: Fever, Chills Gastrointestinal: Negative for: Nausea, Vomiting, Abdominal Pain Musculoskeletal: Negative for: Back Pain Neurological: Negative for: Other (LOC, head injury ) Physical Exam - Physical Exam Appears: Non-toxic, No Acute Distress, Other (+obese ) Skin: Normal Color, Warm, Dry Head: Atraumatic, Normacephalic, No Tenderness, No Abrasion, No Laceration Eye(s): bilateral: Normal Inspection, PERRL, EOMI Ear(s): Bilateral: Normal Nose: Normal, No Discharge Oral Mucosa: Moist Throat: Normal, No Erythema, No Exudate Neck: Normal ROM, Supple Chest: Symmetrical, No Deformity, No Tenderness Cardiovascular: Rhythm Regular, No Murmur Respiratory: Decreased Breath Sounds (at bilateral bases ), No Rales, No Rhonchi , No Wheezing Gastrointestinal/Abdominal: Soft, No Tenderness, No Guarding, No Rebound Back: Normal Inspection, No Vertebral Tenderness, No Paraspinal Tenderness Extremity: Normal ROM, No Tenderness, No Calf Tenderness, Capillary Refill ( less than 2 seconds ), No Deformity, Swelling (3+ edema to bilateral lower extremities ) Pulses: Left Dorsalis Pedis: Normal, Right Dorsalis Pedis: Normal Neurological/Psych: Oriented x3, Normal Speech, Normal Cognition, Other (no focal deficits ) Gait: Steady Objective - Vital Signs/Intake and Output Vital Signs (last 24 hours): Temp Pulse Resp BP Pulse Ox 98.3 F 90 22 161/77 H 97 10/14/16 15:21 10/14/16 15:30 10/14/16 15:21 10/14/16 15:21 10/14/16 15:21 - Medications Medications: Current Medications Acetaminophen (Tylenol 325mg Tab) 650 mg PO Q6 PRN PRN Reason: Pain, moderate (4-7) Last Admin: 10/14/16 04:07 Dose: 650 mg Aspirin (Aspirin Chewable) 81 mg PO DAILY [facility] Last Admin: 10/14/16 09:24 Dose: 81 mg Clopidogrel Bisulfate (Plavix) 75 mg PO DAILY [facility] Last Admin: 10/14/16 09:24 Dose: 75 mg Docusate Sodium (Colace) 100 mg PO DAILY [facility] Last Admin: 10/14/16 09:24 Dose: 100 mg Enoxaparin Sodium (Lovenox) 40 mg SC DAILY [facility] Last Admin: 10/14/16 09:25 Dose: 40 mg Glipizide (Glucotrol) 5 mg PO BID [facility] [place] Last Admin: 10/14/16 18:01 Dose: 5 mg Home Med (Dimercaptopropanesulfonate Sod) 1 tab PO DAILY [facility] [place] Home Med (Mirabegron [Myrbetriq]) 50 mg PO BID [facility] [place] Hydralazine HCl (Apresoline) 25 mg PO TID [facility] Last Admin: 10/14/16 18:00 Dose: 25 mg Insulin Aspart (Novolog) 0 unit SC [facility] PRN Reason: Protocol Last Admin: 10/14/16 18:03 Dose: 4 unit Losartan Potassium (Cozaar) 50 mg PO DAILY [facility] [place] Last Admin: 10/14/16 09:24 Dose: 50 mg Metformin HCl (Glucophage) 500 mg PO BID [facility] [place] Last Admin: 10/14/16 18:04 Dose: 500 mg Multivitamins (Hexavitamin) 1 tab PO DAILY [facility] [place] Last Admin: 10/14/16 09:25 Dose: 1 tab Zmakn-8-[id number] Ethyl Esters (Lovaza) 1 gm PO BID [facility] Last Admin: 10/14/16 18:00 Dose: 1 gm Pregabalin (Lyrica) 75 mg PO DAILY [facility] Last Admin: 10/14/16 09:23 Dose: 75 mg Rosuvastatin Calcium (Crestor) 10 mg PO HS [facility] Last Admin: 10/13/16 22:37 Dose: 10 mg - Labs Labs: 10/13/16 11:10 10/13/16 11:10 PT 10.7 SECONDS (9.7-12.2) 10/10/16 10:21 INR 0.9 10/10/16 10:21 APTT 30 SECONDS (21-34) 10/10/16 10:21 Assessment and Plan - Assessment and Plan (Free Text) Assessment: 1. CVA 2. HTN 3. Obesity ECHO and Carotids unremarkable
[2016-10-15 01:16] VITALS: RESP 20
[2016-10-15 07:34] LABS: BASO % 0.5 % (0.0-2.0); EOS # 0.4 K/uL (0.0-0.7); EOS % 4.5 % (0.0-4.0); HEMATOCRIT 39.4 % (35.0-51.0); LYMPH # 1.8 K/uL (1.0-4.3); LYMPH % 19.5 % (20.0-40.0); MEAN CELL VOLUME 88.2 fL (80.0-94.0); MEAN CORPUSCULAR HEMOGLOBIN 29.9 pg (27.0-31.0); MEAN CORPUSCULAR HGB CONC 33.9 g/dL (33.0-37.0); MEAN PLATELET VOLUME 9.2 fL (7.2-11.7); MONO # 0.9 K/uL (0.0-0.8); RED CELL DISTRIBUTION WIDTH 13.3 % (11.5-14.5)
[2016-10-15 07:41] LABS: CHLORIDE 105 mmol/L (98-107); POTASSIUM 4.2 mmol/L (3.6-5.2); SODIUM 138 mmol/L (132-148)
[2016-10-15 07:43] LABS: AST/SGOT 43 U/L (17-59); BILIRUBIN,TOTAL 0.6 mg/dL (0.2-1.3); CARBON DIOXIDE 22 mmol/L (22-30); GFR AFRICAN-AMERICAN > 60
[2016-10-15 07:44] LABS: ALB/GLOB RATIO 0.9 (1.0-2.1); ALKALINE PHOSPHATASE 79 U/L (38-126); ALT/SGPT 86 U/L (21-72); BLOOD UREA NITROGEN 34 mg/dL (9-20); CALCIUM 8.9 mg/dl (8.6-10.4); GLUCOSE,RANDOM 241 mg/dL (75-110)
[2016-10-15] MEDS: (Novolog) Insulin Aspart, Recombinant 100 u/ml 10 ml vial SC SCH ×4 (08:00→21:24)
[2016-10-15] MEDS: Multiple Vitamins Tab PO SCH (09:15)
[2016-10-15] MEDS: Omega-3-Acid Ethyl Esters 1 GM Cap PO SCH ×2 (09:16→17:32)
[2016-10-15] MEDS: Enoxaparin 40 mg Syringe SC SCH (09:18)
[2016-10-15 11:31] LABS: LYME DISEASE SCREEN <0.90 index
--- NOTE | 2016-10-15 12:06 | PN ---
DATE: 10/15/2016 TIME OF EVALUATION: 11:37 a.m. 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 PHYSICAL EXAMINATION: VITAL SIGNS: Blood pressure 124/77, mean arterial pressure of 92, respiratory rate 18, temperature 9 8.7, pulse rate 81. NEUROLOGIC: The patient is more awake, alert, oriented to person, place, and time. Speech is clear. The patient is examined in the presence of his . He moves all 4 extremities against gravity, s ome limitation on legs more than his arms. MOTOR: Deep tendon reflexes trace throughout. Plantars are upgoing on both sides. SENSORY: Peripheral neuropathy unchanged. He is still in the bed. WORKUP: MRI being reviewed, stated in my previous exam. The patient definitely needs a transesophageal echocardiogram to assess for cryptogenic stroke. The patient does have large vessel as well as small vessel disease. Considering the risk factors, patient should have a polysomnogram to rule out sleep-related breathing disorder. This can be done as outpatient. The patient is also requested to be out of the bed and to be kept on fall precaution. The patient al so requested to have physical therapy that is also still pending. The patient will be followed close ly with you. Jesus Zimmerman MD cc: [id number] TT: 10/15/2016 12:05:13 Confirmation # [id number] Dictation # [id number] en
--- NOTE | 2016-10-15 15:38 | CP.PCM.PN ---
Subjective - Date & Time of Evaluation Date of Evaluation: 10/15/16 Time of Evaluation: 08:40 - Subjective Subjective: clinically same Objective - Vital Signs/Intake and Output Vital Signs (last 24 hours): Temp Pulse Resp BP Pulse Ox 97.2 F L 82 20 165/80 H 97 10/15/16 08:00 10/15/16 08:00 10/15/16 08:00 10/15/16 08:00 10/15/16 08:00 Intake and Output: 10/15/16 10/15/16 06:59 18:59 Output Total 100 Balance -100 - Medications Medications: Current Medications Acetaminophen (Tylenol 325mg Tab) 650 mg PO Q6 PRN PRN Reason: Pain, moderate (4-7) Last Admin: 10/15/16 09:05 Dose: 650 mg Aspirin (Aspirin Chewable) 81 mg PO DAILY [facility] Last Admin: 10/15/16 09:15 Dose: 81 mg Clopidogrel Bisulfate (Plavix) 75 mg PO DAILY [facility] Last Admin: 10/15/16 09:16 Dose: 75 mg Docusate Sodium (Colace) 100 mg PO DAILY [facility] Last Admin: 10/15/16 09:15 Dose: 100 mg Enoxaparin Sodium (Lovenox) 40 mg SC DAILY [facility] Last Admin: 10/15/16 09:18 Dose: 40 mg Glipizide (Glucotrol) 5 mg PO BID [facility] Last Admin: 10/15/16 09:15 Dose: 5 mg Home Med (Dimercaptopropanesulfonate Sod) 1 tab PO DAILY [facility] Home Med (Mirabegron [Myrbetriq]) 50 mg PO BID [facility] Hydralazine HCl (Apresoline) 25 mg PO TID [facility] Last Admin: 10/15/16 13:08 Dose: 25 mg Insulin Aspart (Novolog) 0 unit SC ACHS [facility] PRN Reason: Protocol Last Admin: 10/15/16 12:00 Dose: 4 unit Losartan Potassium (Cozaar) 50 mg PO DAILY [facility] Last Admin: 10/15/16 09:16 Dose: 50 mg Metformin HCl (Glucophage) 500 mg PO BID [facility] Last Admin: 10/15/16 09:15 Dose: 500 mg Multivitamins (Hexavitamin) 1 tab PO DAILY [facility] Last Admin: 10/15/16 09:15 Dose: 1 tab Doxhw-0-Yeix Ethyl Esters (Lovaza) 1 gm PO BID [facility] Last Admin: 10/15/16 09:16 Dose: 1 gm Pregabalin (Lyrica) 75 mg PO DAILY [facility] Last Admin: 10/15/16 09:16 Dose: 75 mg Rosuvastatin Calcium (Crestor) 10 mg PO HS [facility] Last Admin: 10/14/16 22:33 Dose: 10 mg - Labs Labs: 10/15/16 07:06 10/15/16 07:06 PT 10.7 SECONDS (9.7-12.2) 10/10/16 10:21 INR 0.9 10/10/16 10:21 APTT 30 SECONDS (21-34) 10/10/16 10:21 Assessment and Plan (1) Acute CVA (cerebrovascular accident) Status: Acute (2) Multiple falls Status: Acute (3) Near syncope Status: Acute (4) Weakness Status: Acute
--- NOTE | 2016-10-15 18:51 | CP.PCM.PN ---
Subjective - Date & Time of Evaluation Date of Evaluation: 10/15/16 Time of Evaluation: 06:30 Objective - Vital Signs/Intake and Output Vital Signs (last 24 hours): Temp Pulse Resp BP Pulse Ox 97.3 F L 85 20 145/79 98 10/15/16 15:00 10/15/16 15:00 10/15/16 15:00 10/15/16 15:00 10/15/16 15:00 Intake and Output: 10/15/16 10/15/16 06:59 18:59 Output Total 100 Balance -100 - Medications Medications: Current Medications Acetaminophen (Tylenol 325mg Tab) 650 mg PO Q6 PRN PRN Reason: Pain, moderate (4-7) Last Admin: 10/15/16 17:29 Dose: 650 mg Aspirin (Aspirin Chewable) 81 mg PO DAILY [facility] Last Admin: 10/15/16 09:15 Dose: 81 mg Clopidogrel Bisulfate (Plavix) 75 mg PO DAILY [facility] Last Admin: 10/15/16 09:16 Dose: 75 mg Docusate Sodium (Colace) 100 mg PO DAILY [facility] Last Admin: 10/15/16 09:15 Dose: 100 mg Enoxaparin Sodium (Lovenox) 40 mg SC DAILY [facility] Last Admin: 10/15/16 09:18 Dose: 40 mg Glipizide (Glucotrol) 5 mg PO BID [facility] Last Admin: 10/15/16 17:32 Dose: 5 mg Home Med (Dimercaptopropanesulfonate Sod) 1 tab PO DAILY [facility] Home Med (Mirabegron [Myrbetriq]) 50 mg PO BID [facility] Hydralazine HCl (Apresoline) 25 mg PO TID [facility] Last Admin: 10/15/16 17:33 Dose: 25 mg Insulin Aspart (Novolog) 0 unit SC ACHS [facility] PRN Reason: Protocol Last Admin: 10/15/16 17:49 Dose: 4 unit Losartan Potassium (Cozaar) 50 mg PO DAILY [facility] Last Admin: 10/15/16 09:16 Dose: 50 mg Metformin HCl (Glucophage) 500 mg PO BID [facility] Last Admin: 10/15/16 17:32 Dose: 500 mg Multivitamins (Hexavitamin) 1 tab PO DAILY [facility] Last Admin: 10/15/16 09:15 Dose: 1 tab Wgvmy-0-Ggae Ethyl Esters (Lovaza) 1 gm PO BID [facility] Last Admin: 10/15/16 17:32 Dose: 1 gm Pregabalin (Lyrica) 75 mg PO DAILY [facility] Last Admin: 10/15/16 09:16 Dose: 75 mg Rosuvastatin Calcium (Crestor) 10 mg PO HS [facility] Last Admin: 10/14/16 22:33 Dose: 10 mg - Labs Labs: 10/15/16 07:06 10/15/16 07:06 PT 10.7 SECONDS (9.7-12.2) 10/10/16 10:21 INR 0.9 10/10/16 10:21 APTT 30 SECONDS (21-34) 10/10/16 10:21
--- NOTE | 2016-10-16 07:50 | PN ---
DATE: 10/16/2016 NEUROLOGICAL PROBLEM: Anterior cerebral artery ischemic process manifesting as left leg weakness in addition to his previous ischemia resulting quadriparesis. VITAL SIGNS: Blood pressure 164/81, respiratory rate 18, mean arterial pressure of 108, temperature 97.5, pulse rate 84. The patient is still complaining of constipation. He did not his bowel movement yesterday. Ot herwise, no other new symptoms. PHYSICAL EXAMINATION: Unchanged to compare with the previous examination. RECOMMENDATIONS: 1. The patient should be out of the bed and physical therapy should be started. 2. Transesophageal echocardiogram should be done because of cryptogenic stroke. Diet controlled diabetes control, hypertension and weight control been discussed with him as well as his . The patient should have polysomnogram to rule out hidden sleep-related breathing disorder. That can be done as outpatient. The patient is a good candidate for rehabilitation following all workup is done. Jesus Zimmerman MD cc: [id number] TT: 10/16/2016 07:49:31 Confirmation # [id number] Dictation # [id number] en
[2016-10-16] MEDS: (Novolog) Insulin Aspart, Recombinant 100 u/ml 10 ml vial SC SCH ×4 (08:04→22:00)
--- NOTE | 2016-10-16 09:19 | VASCLAB ---
PROCEDURE: HISTORY: stenosis COMPARISON: None available. TECHNIQUE: Grayscale and duplex Doppler evaluation of the cervical carotid and vertebral arteries were performed. The common carotid, carotid bifurcations and cervical Internal Carotid Artery (ICA) and proximal External Carotid Artery (ECA) were evaluated. The vertebral arteries were evaluated for gross patency and flow direction. Report prepared by Reji Renae, BS, RVT FINDINGS: RIGHT CAROTID ARTERIES: 1. Common Carotid Artery: No significant focal plaque formation of the right common carotid artery. Maximum Peak Systolic velocity: 60 cm/sec: End-diastolic velocity 6 cm/sec. 2. Carotid Bifurcation: plaque formation. Maximum Peak Systolic velocity: 57 cm/sec: End-diastolic velocity 6 cm/sec. 3. Internal Carotid Artery: Plaque description: 3.1. Proximal Segment: Peak systolic velocity 61 cm/sec: End-diastolic velocity 12 cm/sec - % stenosis 0-15% 3.2. Middle Segment: Peak systolic velocity 69 cm/sec: End-diastolic velocity 20 cm/sec - % stenosis 0-15% 3.3. Distal Segment: Peak systolic velocity 65 cm/sec: End-diastolic velocity 18 cm/sec - % stenosis 0-15% 4. External Carotid Artery: No significant focal plaque formation. Peak systolic velocity 125 cm/sec 5. ICA/CCA Ratio: 1.2 LEFT CAROTID ARTERIES: 1. Common Carotid Artery: No significant focal plaque formation of the left common carotid artery. Maximum Peak Systolic velocity: 86 cm/sec: End-diastolic velocity 0 cm/sec. 2. Carotid Bifurcation: plaque formation. Maximum Peak Systolic velocity: 49 cm/sec: End-diastolic velocity 9 cm/sec. 3. Internal Carotid Artery: Plaque description: 3.1. Proximal Segment: Peak systolic velocity 71 cm/sec: End-diastolic velocity 15 cm/sec - % stenosis 0-15% 3.2. Middle Segment: Peak systolic velocity 93 cm/sec: End-diastolic velocity 27 cm/sec - % stenosis 0-15% 3.3. Distal Segment: Peak systolic velocity 82 cm/sec: End-diastolic velocity 25 cm/sec - % stenosis 0-15% 4. External Carotid Artery: No significant focal plaque formation. Peak systolic velocity 61 cm/sec 5. ICA/CCA Ratio: 1.1 VERTEBRAL ARTERIES: 1. Right Vertebral Artery: The right vertebral artery flow direction is antegrade. 2. Left Vertebral Artery: The left vertebral artery flow direction is antegrade. OTHER FINDINGS: 1. Right Brachial Blood pressure: 130 mmHg. 2. Left Brachial Blood pressure: 130 mmHg. IMPRESSION: RIGHT: Duplex scan does not suggest hemodynamically significant stenosis of the right extracranial carotid arteries. LEFT: Duplex scan does not suggest hemodynamically significant stenosis of the left extracranial carotid arteries.
[2016-10-16] MEDS: Omega-3-Acid Ethyl Esters 1 GM Cap PO SCH ×2 (09:54→18:03)
[2016-10-16] MEDS: Multiple Vitamins Tab PO SCH (09:54)
[2016-10-16 11:27] LABS: BASO % 0.5 % (0.0-2.0); EOS # 0.3 K/uL (0.0-0.7); HEMATOCRIT 38.7 % (35.0-51.0); LYMPH # 1.8 K/uL (1.0-4.3); LYMPH % 17.5 % (20.0-40.0); MEAN CELL VOLUME 88.6 fL (80.0-94.0); MEAN CORPUSCULAR HEMOGLOBIN 29.6 pg (27.0-31.0); MEAN CORPUSCULAR HGB CONC 33.4 g/dL (33.0-37.0); MEAN PLATELET VOLUME 9.2 fL (7.2-11.7); MONO # 0.8 K/uL (0.0-0.8); MONO % 7.4 % (0.0-10.0); NRBC % 0.1 % (0.0-2.0); RED CELL DISTRIBUTION WIDTH 13.1 % (11.5-14.5); WHITE BLOOD COUNT 10.3 K/uL (4.8-10.8)
[2016-10-16 11:44] LABS: CHLORIDE 106 mmol/L (98-107); SODIUM 138 mmol/L (132-148)
[2016-10-16 11:45] LABS: POTASSIUM 3.9 mmol/L (3.6-5.2)
[2016-10-16 11:47] LABS: ALB/GLOB RATIO 0.9 (1.0-2.1); ALKALINE PHOSPHATASE 83 U/L (38-126); ALT/SGPT 67 U/L (21-72); AST/SGOT 33 U/L (17-59); BILIRUBIN,TOTAL 0.6 mg/dL (0.2-1.3); BLOOD UREA NITROGEN 38 mg/dL (9-20); CALCIUM 8.9 mg/dl (8.6-10.4); CARBON DIOXIDE 22 mmol/L (22-30); GFR AFRICAN-AMERICAN > 60; GLUCOSE,RANDOM 319 mg/dL (75-110); TOTAL PROTEIN 7.2 g/dL (6.3-8.3)
[2016-10-16] MEDS: Enoxaparin 40 mg Syringe SC SCH (12:04)
[2016-10-16] MEDS ORDERED: Propofol 10 mg/ml Inj (20 ML) ONE ×2 (14:24)
--- NOTE | 2016-10-16 17:26 | CP.PCM.PN ---
Subjective - Date & Time of Evaluation Date of Evaluation: 10/16/16 Time of Evaluation: 10:20 - Subjective Subjective: clinically same Objective - Vital Signs/Intake and Output Vital Signs (last 24 hours): Temp Pulse Resp BP Pulse Ox 97.7 F 86 20 164/99 H 98 10/16/16 07:25 10/16/16 17:00 10/16/16 07:25 10/16/16 07:25 10/16/16 07:25 Intake and Output: 10/16/16 10/16/16 06:59 18:59 Output Total 150 Balance -150 - Medications Medications: Current Medications Acetaminophen (Tylenol 325mg Tab) 650 mg PO Q6 PRN PRN Reason: Pain, moderate (4-7) Last Admin: 10/16/16 05:40 Dose: 650 mg Aspirin (Aspirin Chewable) 81 mg PO DAILY [facility] Last Admin: 10/16/16 09:54 Dose: 81 mg Clopidogrel Bisulfate (Plavix) 75 mg PO DAILY [facility] Last Admin: 10/16/16 09:53 Dose: 75 mg Docusate Sodium (Colace) 100 mg PO DAILY [facility] Last Admin: 10/16/16 09:53 Dose: 100 mg Enoxaparin Sodium (Lovenox) 40 mg SC DAILY [facility] Last Admin: 10/16/16 12:04 Dose: 40 mg Glipizide (Glucotrol) 5 mg PO BID [facility] Last Admin: 10/16/16 09:53 Dose: 5 mg Home Med (Mirabegron [Myrbetriq]) 50 mg PO BID [facility] Hydralazine HCl (Apresoline) 25 mg PO TID [facility] Last Admin: 10/16/16 09:53 Dose: 25 mg Ibuprofen (Motrin Tab) 400 mg PO BID PRN PRN Reason: Pain, severe (8-10) Last Admin: 10/15/16 21:11 Dose: 400 mg Insulin Aspart (Novolog) 0 unit SC ACHS [facility] PRN Reason: Protocol Last Admin: 10/16/16 12:04 Dose: 4 unit Lactulose (Enulose) 20 gm PO BID PRN PRN Reason: Constipation Last Admin: 10/15/16 21:10 Dose: 20 gm Losartan Potassium (Cozaar) 50 mg PO DAILY [facility] Last Admin: 10/16/16 09:54 Dose: 50 mg Metformin HCl (Glucophage) 500 mg PO BID [facility] Last Admin: 10/16/16 09:53 Dose: 500 mg Multivitamins (Hexavitamin) 1 tab PO DAILY [facility] Last Admin: 10/16/16 09:54 Dose: 1 tab Ctjic-6-Zctd Ethyl Esters (Lovaza) 1 gm PO BID [facility] Last Admin: 10/16/16 09:54 Dose: 1 gm Pregabalin (Lyrica) 75 mg PO DAILY [facility] Last Admin: 10/16/16 09:53 Dose: 75 mg Rosuvastatin Calcium (Crestor) 10 mg PO HS [facility] Last Admin: 10/15/16 21:10 Dose: 10 mg - Labs Labs: 10/16/16 11:16 10/16/16 11:16 PT 10.7 SECONDS (9.7-12.2) 10/10/16 10:21 INR 0.9 10/10/16 10:21 APTT 30 SECONDS (21-34) 10/10/16 10:21 - Constitutional Appears: Well - Head Exam Head Exam: ATRAUMATIC, NORMAL INSPECTION, NORMOCEPHALIC - Eye Exam Eye Exam: EOMI, Normal appearance, PERRL Pupil Exam: NORMAL ACCOMODATION, PERRL - ENT Exam ENT Exam: Mucous Membranes Moist, Normal Exam - Neck Exam Neck Exam: Full ROM, Normal Inspection. absent: Lymphadenopathy - Respiratory Exam Respiratory Exam: Decreased Breath Sounds - Cardiovascular Exam Cardiovascular Exam: REGULAR RHYTHM, +S1, +S2 - GI/Abdominal Exam GI & Abdominal Exam: Soft, Diminished Bowel Sounds - Rectal Exam Rectal Exam: Deferred Assessment and Plan (1) Acute CVA (cerebrovascular accident) Status: Acute (2) Multiple falls Status: Acute (3) Near syncope Status: Acute (4) Weakness Status: Acute
--- NOTE | 2016-10-16 23:09 | CP.PCM.PN ---
Subjective - Date & Time of Evaluation Date of Evaluation: 10/16/16 Time of Evaluation: 16:10 - Subjective Subjective: Patient s/p [place] LVH with normal EF No Cardiac thrombus No significant valvular disease No shunts Moderate to severe atherosclerosis of the aorta Full report to follow Objective - Vital Signs/Intake and Output Vital Signs (last 24 hours): Temp Pulse Resp BP Pulse Ox 97.3 F L 80 20 148/79 97 10/16/16 17:50 10/16/16 17:50 10/16/16 17:50 10/16/16 17:50 10/16/16 17:50 - Medications Medications: Current Medications Acetaminophen (Tylenol 325mg Tab) 650 mg PO Q6 PRN PRN Reason: Pain, moderate (4-7) Last Admin: 10/16/16 22:08 Dose: 650 mg Aspirin (Aspirin Chewable) 81 mg PO DAILY [facility] Last Admin: 10/16/16 09:54 Dose: 81 mg Clopidogrel Bisulfate (Plavix) 75 mg PO DAILY [facility] Last Admin: 10/16/16 09:53 Dose: 75 mg Docusate Sodium (Colace) 100 mg PO DAILY [facility] Last Admin: 10/16/16 09:53 Dose: 100 mg Enoxaparin Sodium (Lovenox) 40 mg SC DAILY [facility] Last Admin: 10/16/16 12:04 Dose: 40 mg Glipizide (Glucotrol) 5 mg PO BID [facility] Last Admin: 10/16/16 18:03 Dose: 5 mg Home Med (Mirabegron [Myrbetriq]) 50 mg PO BID [facility] Hydralazine HCl (Apresoline) 25 mg PO TID [facility] Last Admin: 10/16/16 18:03 Dose: 25 mg Ibuprofen (Motrin Tab) 400 mg PO BID PRN PRN Reason: Pain, severe (8-10) Last Admin: 10/15/16 21:11 Dose: 400 mg Insulin Aspart (Novolog) 0 unit SC [facility] PRN Reason: Protocol Last Admin: 10/16/16 22:00 Dose: Not Given Lactulose (Enulose) 20 gm PO BID PRN PRN Reason: Constipation Last Admin: 10/15/16 21:10 Dose: 20 gm Losartan Potassium (Cozaar) 50 mg PO DAILY [facility] Last Admin: 10/16/16 09:54 Dose: 50 mg Metformin HCl (Glucophage) 500 mg PO BID [facility] Last Admin: 10/16/16 18:03 Dose: 500 mg Multivitamins (Hexavitamin) 1 tab PO DAILY [facility] Last Admin: 10/16/16 09:54 Dose: 1 tab Grlsn-2-Gqnj Ethyl Esters (Lovaza) 1 gm PO BID [facility] Last Admin: 10/16/16 18:03 Dose: 1 gm Pregabalin (Lyrica) 75 mg PO DAILY [facility] Last Admin: 10/16/16 09:53 Dose: 75 mg Rosuvastatin Calcium (Crestor) 10 mg PO HS [facility] Last Admin: 10/16/16 22:08 Dose: 10 mg - Labs Labs: 10/16/16 11:16 10/16/16 11:16 PT 10.7 SECONDS (9.7-12.2) 10/10/16 10:21 INR 0.9 10/10/16 10:21 APTT 30 SECONDS (21-34) 10/10/16 10:21
[2016-10-17 00:10] VITALS: TEMP 97.8; O2SAT 96
[2016-10-17 07:49] LABS: CHLORIDE 102 mmol/L (98-107); POTASSIUM 4.5 mmol/L (3.6-5.2); SODIUM 135 mmol/L (132-148)
[2016-10-17 07:52] LABS: ALKALINE PHOSPHATASE 81 U/L (38-126); ALT/SGPT 70 U/L (21-72); AST/SGOT 30 U/L (17-59); BILIRUBIN,TOTAL 0.7 mg/dL (0.2-1.3); BLOOD UREA NITROGEN 33 mg/dL (9-20); CALCIUM 7.9 mg/dl (8.6-10.4); CARBON DIOXIDE 17 mmol/L (22-30); GFR AFRICAN-AMERICAN > 60; GLUCOSE,RANDOM 222 mg/dL (75-110)
[2016-10-17 07:56] LABS: HEMATOCRIT 38.9 % (35.0-51.0); MEAN CELL VOLUME 89.2 fL (80.0-94.0); MEAN CORPUSCULAR HEMOGLOBIN 29.6 pg (27.0-31.0); MEAN CORPUSCULAR HGB CONC 33.2 g/dL (33.0-37.0); RED CELL DISTRIBUTION WIDTH 13.1 % (11.5-14.5)
[2016-10-17] MEDS: (Novolog) Insulin Aspart, Recombinant 100 u/ml 10 ml vial SC SCH ×3 (08:00→17:22)
[2016-10-17] MEDS: Multiple Vitamins Tab PO SCH (09:59)
[2016-10-17] MEDS: Enoxaparin 40 mg Syringe SC SCH (09:59)
[2016-10-17] MEDS: Omega-3-Acid Ethyl Esters 1 GM Cap PO SCH ×2 (09:59→17:21)
[2016-10-17 11:49] LABS: EOS # 0.5 K/uL (0.0-0.7); LYMPH # 2.7 K/uL (1.0-4.3)
--- NOTE | 2016-10-17 13:45 | CP.PCM.PN ---
Subjective - Date & Time of Evaluation Date of Evaluation: 10/17/16 Time of Evaluation: 11:00 - Subjective Subjective: clinically same Objective - Vital Signs/Intake and Output Vital Signs (last 24 hours): Temp Pulse Resp BP Pulse Ox 97.8 F 85 20 175/96 H 96 10/17/16 07:30 10/17/16 07:40 10/17/16 07:30 10/17/16 07:30 10/17/16 07:30 Intake and Output: 10/17/16 10/17/16 06:59 18:59 Intake Total 300 Output Total 500 Balance -200 - Medications Medications: Current Medications Acetaminophen (Tylenol 325mg Tab) 650 mg PO Q6 PRN PRN Reason: Pain, moderate (4-7) Last Admin: 10/16/16 22:08 Dose: 650 mg Aspirin (Aspirin Chewable) 81 mg PO DAILY [facility] Last Admin: 10/17/16 09:59 Dose: 81 mg Clopidogrel Bisulfate (Plavix) 75 mg PO DAILY [facility] Last Admin: 10/17/16 09:58 Dose: 75 mg Docusate Sodium (Colace) 100 mg PO DAILY [facility] Last Admin: 10/17/16 09:59 Dose: 100 mg Enoxaparin Sodium (Lovenox) 40 mg SC DAILY [facility] Last Admin: 10/17/16 09:59 Dose: 40 mg Glipizide (Glucotrol) 5 mg PO BID [facility] Last Admin: 10/17/16 09:59 Dose: 5 mg Home Med (Mirabegron [Myrbetriq]) 50 mg PO BID [facility] Hydralazine HCl (Apresoline) 25 mg PO TID [facility] Last Admin: 10/17/16 09:58 Dose: 25 mg Ibuprofen (Motrin Tab) 400 mg PO BID PRN PRN Reason: Pain, severe (8-10) Last Admin: 10/15/16 21:11 Dose: 400 mg Insulin Aspart (Novolog) 0 unit SC [facility] PRN Reason: Protocol Last Admin: 10/16/16 22:00 Dose: Not Given Lactulose (Enulose) 20 gm PO BID PRN PRN Reason: Constipation Last Admin: 10/17/16 00:29 Dose: 20 gm Losartan Potassium (Cozaar) 50 mg PO DAILY [facility] Last Admin: 10/17/16 09:59 Dose: 50 mg Metformin HCl (Glucophage) 500 mg PO BID [facility] Last Admin: 10/17/16 09:59 Dose: 500 mg Multivitamins (Hexavitamin) 1 tab PO DAILY [facility] Last Admin: 10/17/16 09:59 Dose: 1 tab [id number] Ethyl Esters (Lovaza) 1 gm PO BID [facility] Last Admin: 10/17/16 09:59 Dose: 1 gm Pregabalin (Lyrica) 75 mg PO DAILY [facility] Last Admin: 10/17/16 09:57 Dose: 75 mg Rosuvastatin Calcium (Crestor) 10 mg PO HS [facility] Last Admin: 10/16/16 22:08 Dose: 10 mg - Labs Labs: 10/17/16 07:29 10/17/16 07:29 PT 10.7 SECONDS (9.7-12.2) 10/10/16 10:21 INR 0.9 10/10/16 10:21 APTT 30 SECONDS (21-34) 10/10/16 10:21 - Constitutional Appears: Well - Head Exam Head Exam: ATRAUMATIC, NORMAL INSPECTION, NORMOCEPHALIC - Eye Exam Eye Exam: EOMI, Normal appearance, PERRL Pupil Exam: NORMAL ACCOMODATION, PERRL - ENT Exam ENT Exam: Mucous Membranes Moist, Normal Exam - Respiratory Exam Respiratory Exam: Decreased Breath Sounds - Cardiovascular Exam Cardiovascular Exam: REGULAR RHYTHM, +S1, +S2 - GI/Abdominal Exam GI & Abdominal Exam: Soft, Diminished Bowel Sounds - Rectal Exam Rectal Exam: Deferred Assessment and Plan (1) Acute CVA (cerebrovascular accident) Status: Acute (2) Multiple falls Status: Acute (3) Near syncope Status: Acute (4) Weakness Status: Acute
--- NOTE | 2016-10-17 16:04 | CP.PCM.PN ---
Subjective - Date & Time of Evaluation Date of Evaluation: 10/17/16 Time of Evaluation: 16:03 - Subjective Subjective: 71 y/o male seen and examined today, Pt with pmhx with left side of stroke, right side of weakness, morbid obesity, DM II, HTN, admitted for eduardo leg weakness and frequent falls, MRI brain- acute infarction in R paramedian frontal lobe, old infarct R posterior lobe, L anterior mickie, L cerebellar hemisphere, Carotid Doppler- negative, [place]- LVH with normal EF, no cardiac thrombus, no valave disease, Pt cleared for d/c by Dr Clinton Green, Dr Zimmerman and Dr Acosta. Pt transfered to Rehab for further tx and OT/PT. Pt and family agree with POC. Objective - Vital Signs/Intake and Output Vital Signs (last 24 hours): Temp Pulse Resp BP Pulse Ox 97.8 F 85 20 175/96 H 96 10/17/16 07:30 10/17/16 07:40 10/17/16 07:30 10/17/16 07:30 10/17/16 07:30 Intake and Output: 10/17/16 10/17/16 06:59 18:59 Intake Total 300 Output Total 500 Balance -200 - Medications Medications: Current Medications Acetaminophen (Tylenol 325mg Tab) 650 mg PO Q6 PRN PRN Reason: Pain, moderate (4-7) Last Admin: 10/16/16 22:08 Dose: 650 mg Aspirin (Aspirin Chewable) 81 mg PO DAILY [facility] Last Admin: 10/17/16 09:59 Dose: 81 mg Clopidogrel Bisulfate (Plavix) 75 mg PO DAILY [facility] Last Admin: 10/17/16 09:58 Dose: 75 mg Docusate Sodium (Colace) 100 mg PO DAILY [facility] Last Admin: 10/17/16 09:59 Dose: 100 mg Enoxaparin Sodium (Lovenox) 40 mg SC DAILY [facility] Last Admin: 10/17/16 09:59 Dose: 40 mg Glipizide (Glucotrol) 5 mg PO BID [facility] Last Admin: 10/17/16 09:59 Dose: 5 mg Home Med (Mirabegron [Myrbetriq]) 50 mg PO BID [facility] Hydralazine HCl (Apresoline) 25 mg PO TID [facility] Last Admin: 10/17/16 15:00 Dose: 25 mg Ibuprofen (Motrin Tab) 400 mg PO BID PRN PRN Reason: Pain, severe (8-10) Last Admin: 10/15/16 21:11 Dose: 400 mg Insulin Aspart (Novolog) 0 unit SC [facility]S [facility] PRN Reason: Protocol Last Admin: 10/17/16 12:00 Dose: 6 unit Lactulose (Enulose) 20 gm PO BID PRN PRN Reason: Constipation Last Admin: 10/17/16 00:29 Dose: 20 gm Losartan Potassium (Cozaar) 50 mg PO DAILY [facility] Last Admin: 10/17/16 09:59 Dose: 50 mg Metformin HCl (Glucophage) 500 mg PO BID [facility] Last Admin: 10/17/16 09:59 Dose: 500 mg Multivitamins (Hexavitamin) 1 tab PO DAILY [facility] Last Admin: 10/17/16 09:59 Dose: 1 tab [id number] Ethyl Esters (Lovaza) 1 gm PO BID [facility] Last Admin: 10/17/16 09:59 Dose: 1 gm Pregabalin (Lyrica) 75 mg PO DAILY [facility] Last Admin: 10/17/16 09:57 Dose: 75 mg Rosuvastatin Calcium (Crestor) 10 mg PO HS [facility] Last Admin: 10/16/16 22:08 Dose: 10 mg - Labs Labs: 10/17/16 07:29 10/17/16 07:29 PT 10.7 SECONDS (9.7-12.2) 10/10/16 10:21 INR 0.9 10/10/16 10:21 APTT 30 SECONDS (21-34) 10/10/16 10:21
[2016-10-17 16:33] VITALS: BP 142/85; PULSE 99
--- NOTE | 2016-10-17 22:18 | EEG ---
DATE: 10/15/2016 FINDINGS: The resting electroencephalogram shows diffuse 20-30 microvolt, 4-5 Hz theta activity seen at parietal and occipital leads. This slow activity is continuously noted from the beginning. The photic stimulation did not evoke driving response noted at 2-20 Hz. The echocardiogram shows r hythm from the beginning. IMPRESSION: This is abnormal electroencephalogram because of persistent slowing throughout the recor d suggestive of bilateral cerebral dysfunction. This is probably secondary to metabolic vascular or degenerative process. Please correlate the finding with the neurological and radiological studies. Jesus Zimmerman MD cc: [id number] TT: 10/17/2016 22:17:29 Confirmation # [id number] Dictation # [id number] mn
== END 2016-10-17 18:20 | DRG 64 ==
LOC: C.ER 07:58 → C.9E 16:14 → C.5T 17:41 → C.9E 19:22 → C.5T 19:39 → OBSVTOIN 10-12 14:24 → C.6T 10-13 17:23
PROVIDERS: ADMIT Internal Medicine Nephrology; ATTEND Internal Medicine Nephrology
PROC: B246ZZ4 Ultrasonography of Right and Left Heart, Transesophageal (ICD-10-PCS; principal; 2016-10-16)
DX: I63.521 Cerebral infarction due to unspecified occlusion or stenosis of right anterior cerebral artery (principal); G82.50 Quadriplegia, unspecified; E11.42 Type 2 diabetes mellitus with diabetic polyneuropathy; I11.9 Hypertensive heart disease without heart failure; E66.01 Morbid (severe) obesity due to excess calories; G81.94 Hemiplegia, unspecified affecting left nondominant side; I70.0 Atherosclerosis of aorta; N32.81 Overactive bladder; I69.369 Other paralytic syndrome following cerebral infarction affecting unspecified side; R29.6 Repeated falls; R27.8 Other lack of coordination; Z68.37 Body mass index [BMI] 37.0-37.9, adult; Z85.46 Personal history of malignant neoplasm of prostate

== ENCOUNTER 2016-12-25 13:56 | Inpatient (IN) | payer MEDICARE, BC ==
[2016-12-25 13:57] VITALS: BMI 40.6
[2016-12-25 16:05] LABS: BASO # 0.1 K/uL (0.0-0.2); BASO % 0.4 % (0.0-2.0); EOS # 0.3 K/uL (0.0-0.7); EOS % 2.6 % (0.0-4.0); LYMPH # 1.4 K/uL (1.0-4.3); LYMPH % 11.5 % (20.0-40.0); MEAN CELL VOLUME 87.8 fL (80.0-94.0); MEAN CORPUSCULAR HEMOGLOBIN 28.9 pg (27.0-31.0); MEAN PLATELET VOLUME 8.1 fL (7.2-11.7); MONO # 1.1 K/uL (0.0-0.8); MONO % 9.1 % (0.0-10.0); RED CELL DISTRIBUTION WIDTH 13.4 % (11.5-14.5); WHITE BLOOD COUNT 12.4 K/uL (4.8-10.8)
[2016-12-25 16:12] LABS: CHLORIDE 104 mmol/L (98-107); POTASSIUM 4.9 mmol/L (3.6-5.2); SODIUM 141 mmol/L (132-148)
[2016-12-25 16:14] LABS: BILIRUBIN,TOTAL 0.5 mg/dL (0.2-1.3); GFR AFRICAN-AMERICAN > 60
[2016-12-25 16:15] LABS: ALB/GLOB RATIO 0.8 (1.0-2.1); ALKALINE PHOSPHATASE 70 U/L (38-126); ALT/SGPT 33 U/L (21-72); AST/SGOT 20 U/L (17-59); BLOOD UREA NITROGEN 29 mg/dL (9-20); CALCIUM 9.5 mg/dl (8.6-10.4); CARBON DIOXIDE 22 mmol/L (22-30); GLUCOSE,RANDOM 90 mg/dL (75-110); TOTAL PROTEIN 7.5 g/dL (6.3-8.3)
[2016-12-25] MEDS ORDERED: Vancomycin 1 GM 1 GM/250 ML BAG IVPB ONE (17:02)
--- NOTE | 2016-12-25 17:09 | RAD ---
PROCEDURE: Radiographs of the right great toe. TECHNIQUE:: AP radiograph of the right foot, with oblique and lateral view of the right great toe. COMPARISON: Right foot radiographs performed 12/22/16 FINDINGS: Indication: Rule out osteo BONES: No acute displaced fracture. JOINTS: No dislocation. SOFT TISSUES: Soft tissue swelling and evidence of ulceration involving the distal 1st phalanx. No evidence of radiopaque foreign body. Vascular calcifications. OTHER FINDINGS: None. IMPRESSION: Soft tissue swelling and evidence of ulceration involving the distal 1st phalanx. If high clinical index of suspicion for acute osteomyelitis persists, MRI without and with IV contrast may be considered.
--- NOTE | 2016-12-25 17:54 | C.PDOC ---
History Of Present Illness 71 yr old male presents to the ER by podiatry for failing outpatient antibiotics for an infection to the right great toe and was started on Cipro 4 days ago. Patient was reassessed today by Dr. Fofana who states the infection has worsened. Patient has history of diabetes and is complaint with his medicine , states blood sugar was checked at home and was under 200. Patient denies fever , chills, chest pain, SOB, nausea, vomiting, weakness or numbness. Time Seen by Provider: 12/25/16 15:10 Chief Complaint (Nursing): Lower Extremity Problem/Injury History Per: Patient History/Exam Limitations: no limitations Onset/Duration Of Symptoms: Days Past Medical History Reviewed: Historical Data, Nursing Documentation, Vital Signs Vital Signs: Last Vital Signs Temp 97.4 F L 12/25/16 14:05 Pulse 81 12/25/16 17:06 Resp 18 12/25/16 17:06 BP 143/64 12/25/16 17:06 Pulse Ox 97 12/25/16 18:02 - Medical History PMH: Arthritis, HTN, Peripheral Edema - [facility] Procedures INSPECTION OF BLADDER, ENDO (06/21/15) RESECTION OF PROSTATE, ENDO (06/21/15) ULTRASONOGRAPHY OF RIGHT AND LEFT HEART, TRANSESOPHAGEAL (10/12/16) Family History: States: No Known Family Hx - Social History Hx Alcohol Use: No Hx Substance Use: No - Immunization History Hx Tetanus Toxoid Vaccination: No Hx Influenza Vaccination: Yes Hx Pneumococcal Vaccination: Yes Review Of Systems Except As Marked, All Systems Reviewed And Found Negative. Constitutional: Negative for: Fever, Chills Cardiovascular: Negative for: Chest Pain Respiratory: Negative for: Shortness of Breath Gastrointestinal: Negative for: Nausea, Vomiting Neurological: Negative for: Weakness, Numbness Physical Exam - Physical Exam Appears: Non-toxic, No Acute Distress, Other ((+) Obese.) Skin: Warm, Dry, Other (Right Great Toe - Ulceration/cellulitis to the planter aspect.) Head: Atraumatic, Normacephalic Oral Mucosa: Moist Neck: Normal, Normal ROM, Supple Chest: Symmetrical, No Tenderness Cardiovascular: Rhythm Regular, No Murmur Respiratory: Normal Breath Sounds, No Rales, No Rhonchi, No Wheezing Extremity: Normal ROM, No Swelling Neurological/Psych: Oriented x3, Normal Speech, Normal Motor ED Course And Treatment - Laboratory Results Result Diagrams: 12/25/16 15:59 12/25/16 15:59 O2 Sat by Pulse Oximetry: 97 (RA) Pulse Ox Interpretation: Normal - Other Rad X-Ray - Right Foot X-Ray: Viewed By Me, Read By Radiologist Interpretation: PROCEDURE: Radiographs of the right great toe. TECHNIQUE:: AP radiograph of the right foot, with oblique and lateral view of the right great toe. COMPARISON: Right foot radiographs performed 12/22/16. FINDINGS: Indication: Rule out osteo. BONES: No acute displaced fracture. JOINTS: No dislocation. SOFT TISSUES: Soft tissue swelling and evidence of ulceration involving the distal 1st phalanx. No evidence of radiopaque foreign body. Vascular calcifications. OTHER FINDINGS: None. IMPRESSION: Soft tissue swelling and evidence of ulceration involving the distal 1st phalanx. If high clinical index of suspicion for acute osteomyelitis persists, MRI without and with IV contrast may be considered. Medical Decision Making Medical Decision Making: PLAN: * X-Ray - Right Foot * CBC * CMP * Vancomycin IVPB * Sodium Chloride IV Disposition - Disposition Disposition Time: 16:40 Condition: STABLE - Clinical Impression Clinical Impression: Diabetes mellitus, Abscess of great toe - Scribe Statement The provider has reviewed the documentation as recorded by the Lila To Provider Attestation: All medical record entries made by the Lila were at my direction and personally dictated by me. I have reviewed the chart and agree that the record accurately reflects my personal performance of the history, physical exam, medical decision making, and the department course for this patient. I have also personally directed, reviewed, and agree with the discharge instructions and disposition.
--- NOTE | 2016-12-25 18:17 | CP.PCM.HP ---
History of Present Illness - History of Present Illness History of Present Illness: pt came to er diabetic has ulcer big toe infected Present on Admission - Present on Admission Any Indicators Present on Admission: Yes History of Uncontrolled Diabetes: Yes Review of Systems - Review of Systems Systems not reviewed;Unavailable: Acuity of Condition - Constitutional Constitutional: Daytime Sleepiness, Weight Gain - EENT Eyes: As Per HPI Ears: As Per HPI Nose/Mouth/Throat: As Per HPI - Cardiovascular Cardiovascular: Dyspnea - Respiratory Respiratory: Dyspnea on Exertion - Gastrointestinal Gastrointestinal: Bloating, Constipation - Genitourinary Genitourinary: Urinary Frequency - Reproductive: Male Reproductive:Male: As Per HPI - Musculoskeletal Musculoskeletal: As Per HPI - Integumentary Integumentary: Non-Healing Lesions, Skin Ulcer Additional comments: foot - Neurological Neurological: As Per HPI - Psychiatric Psychiatric: As Per HPI - Endocrine Endocrine: As Per HPI - Hematologic/Lymphatic Hematologic: As Per HPI Past Patient History - Infectious Disease Hx of Infectious Diseases: None - Past Medical History & Family History Past Medical History?: Yes - Past Social History Smoking Status: Never Smoked - CARDIAC Hx Hypertension: Yes Hx Peripheral Edema: Yes - PULMONARY Hx Respiratory Disorders: No - NEUROLOGICAL Hx Neurological Disorder: Yes HX Cerebrovascular Accident: Yes (x2) - HEENT Hx HEENT Problems: Yes Hx Cataracts: Yes (BILAT) - RENAL Hx Chronic Kidney Disease: No - ENDOCRINE/METABOLIC Hx Endocrine Disorders: Yes Hx Diabetes Mellitus Type 2: Yes - HEMATOLOGICAL/ONCOLOGICAL Hx Blood Disorders: No - INTEGUMENTARY Hx Dermatological Problems: No - MUSCULOSKELETAL/RHEUMATOLOGICAL Hx Arthritis: Yes - GASTROINTESTINAL Hx Gastrointestinal Disorders: No - GENITOURINARY/GYNECOLOGICAL Hx Genitourinary Disorders: Yes Hx Prostate Cancer: Yes (per md) - PSYCHIATRIC Hx Substance Use: No - SURGICAL HISTORY Hx Surgeries: Yes Hx Cataract Extraction: Yes (bilat) Other/Comment: I/D RECTAL ABSCESS X 2 - ANESTHESIA Hx Anesthesia: Yes Hx Anesthesia Reactions: No Hx Malignant Hyperthermia: No Meds Allergies/Adverse Reactions: Allergies Allergy/AdvReac Type Severity Reaction Status Date / Time No Known Allergies Allergy Verified 12/25/16 14:07 Physical Exam - Constitutional Appears: Non-toxic, In Acute Distress - Head Exam Head Exam: NORMAL INSPECTION - Eye Exam Eye Exam: Normal appearance Pupil Exam: NORMAL ACCOMODATION - ENT Exam ENT Exam: Mucous Membranes Dry - Neck Exam Neck exam: Positive for: Normal Inspection - Respiratory Exam Respiratory Exam: Decreased Breath Sounds, Clear to Auscultation Bilateral - Cardiovascular Exam Cardiovascular Exam: REGULAR RHYTHM - GI/Abdominal Exam GI & Abdominal Exam: Distended, Normal Bowel Sounds - Extremities Exam Extremities exam: Positive for: pedal edema, pedal pulses present Additional comments: uler toe - Back Exam Back exam: NORMAL INSPECTION - Neurological Exam Neurological exam: Oriented x3 - Psychiatric Exam Psychiatric exam: Normal Mood - Skin Skin Exam: Normal Color Results - Vital Signs Recent Vital Signs: Last Vital Signs Temp 97.4 F L 12/25/16 14:05 Pulse 81 12/25/16 17:06 Resp 18 12/25/16 17:06 BP 143/64 12/25/16 17:06 Pulse Ox 97 12/25/16 18:02 - Labs Result Diagrams: 12/25/16 15:59 12/25/16 15:59 Assessment & Plan - Assessment and Plan (Free Text) Assessment: infected toe ulcer dm htn obesity aneamia Plan: as per orders - Date & Time Date: 12/25/16 Time: 18:20
[2016-12-25] MEDS: (Novolin R) Insulin Human Regular 100 units/ml vial SC SCH (21:40)
[2016-12-25] MEDS: Piperacill/Tazo 3.375gm in Dex 3.375 GM/50 ML BAG IVPB SCH (21:50)
[2016-12-26] MEDS: Piperacill/Tazo 3.375gm in Dex 3.375 GM/50 ML BAG IVPB SCH ×3 (02:06→18:30)
[2016-12-26] MEDS: (Novolin R) Insulin Human Regular 100 units/ml vial SC SCH ×4 (07:30→21:59)
[2016-12-26] MEDS: Acetaminophen 650mg/20.3ml solution UD PO PRN (09:56)
[2016-12-26] MEDS: Multiple Vitamins Tab PO SCH (10:00)
[2016-12-26 10:43] VITALS: RESP 20
--- NOTE | 2016-12-26 12:12 | CP.PCM.PN ---
Subjective - Date & Time of Evaluation Date of Evaluation: 12/26/16 Time of Evaluation: 12:09 - Subjective Subjective: has infected toe ulcer diabetic oeadeama leg Objective - Vital Signs/Intake and Output Vital Signs (last 24 hours): Temp Pulse Resp BP Pulse Ox 98.7 F 88 20 152/78 H 97 12/26/16 08:00 12/26/16 08:00 12/26/16 08:00 12/26/16 08:00 12/26/16 08:00 Intake and Output: 12/26/16 12/26/16 06:59 18:59 Intake Total 500 Output Total 700 Balance -200 - Medications Medications: Current Medications Acetaminophen (Tylenol 650mg/20.3ml Solution Ud) 650 mg PO Q6 PRN PRN Reason: Pain, moderate (4-7) Last Admin: 12/26/16 09:56 Dose: 650 mg Aspirin (Ecotrin) 81 mg PO DAILY [facility] Last Admin: 12/26/16 09:55 Dose: 81 mg Clopidogrel Bisulfate (Plavix) 75 mg PO DAILY [facility] Last Admin: 12/26/16 09:55 Dose: 75 mg Furosemide (Lasix) 40 mg IVP DAILY [facility] Heparin Sodium (Porcine) (Heparin) 5,000 units SC Q12H [facility] Last Admin: 12/26/16 09:56 Dose: 5,000 units Piperacillin Sod/Tazobactam Sod (Zosyn 3.375 Gm Iv Premix) 3.375 gm in 50 mls @ 100 mls/hr IVPB Q8H [facility] Last Admin: 12/26/16 02:06 Dose: Not Given Insulin Human Regular (Novolin R) 0 unit SC ACHS [facility] PRN Reason: Protocol Last Admin: 12/26/16 07:30 Dose: 1 unit Losartan Potassium (Cozaar) 50 mg PO DAILY [facility] Last Admin: 12/26/16 09:55 Dose: 50 mg Multivitamins (Hexavitamin) 1 tab PO DAILY [facility] Last Admin: 12/26/16 10:00 Dose: 1 tab Potassium Chloride (K-Dur 20 Meq Er Tab) 20 meq PO DAILY [facility] Pregabalin (Lyrica) 75 mg PO DAILY [facility] Last Admin: 12/26/16 09:58 Dose: 75 mg Terazosin HCl (Hytrin) 1 mg PO HS [facility] Last Admin: 08/21/17 21:39 Dose: 1 mg - Constitutional Appears: Non-toxic - Head Exam Head Exam: NORMAL INSPECTION - Eye Exam Eye Exam: Normal appearance Pupil Exam: NORMAL ACCOMODATION - Neck Exam Neck Exam: Full ROM - Respiratory Exam Respiratory Exam: Clear to Ausculation Bilateral - Cardiovascular Exam Cardiovascular Exam: REGULAR RHYTHM - GI/Abdominal Exam GI & Abdominal Exam: Normal Bowel Sounds - Rectal Exam Rectal Exam: NORMAL INSPECTION - Extremities Exam Extremities Exam: Pedal Edema Additional comments: ulcertoe - Back Exam Back Exam: NORMAL INSPECTION - Neurological Exam Neurological Exam: Normal Gait - Psychiatric Exam Psychiatric exam: Normal Affect - Skin Skin Exam: Normal Color Assessment and Plan - Assessment and Plan (Free Text) Assessment: infected diabetic foot daniel norwood r/o chf dm obesity Plan: as per orders
[2016-12-26] MEDS: Potassium Chloride 20 mEq ER Tab PO SCH (12:15)
--- NOTE | 2016-12-26 13:02 | RAD ---
HISTORY: Cardiomegaly COMPARISON: Chest x-ray performed 10/10/16 TECHNIQUE: Chest PA and lateral FINDINGS: LUNGS: No focal consolidation. Please note that chest x-ray has limited sensitivity for the detection of pulmonary masses. PLEURA: No significant pleural effusion identified. No definite pneumothorax . CARDIOVASCULAR: Cardiomegaly. Dense atherosclerotic calcifications of the aortic knob. OSSEOUS STRUCTURES: Degenerative changes of the spine. VISUALIZED UPPER ABDOMEN: Unremarkable. OTHER FINDINGS: None. IMPRESSION: No focal consolidation, significant pleural effusion, or definite pneumothorax identified. Cardiomegaly. Atherosclerotic calcifications of the aortic knob.
--- NOTE | 2016-12-26 13:11 | CP.PCM.CON ---
History of Present Illness - History of Present Illness History of Present Illness: Podiatry consult note for Dr. Tariq 71 year old male with PMHx including DM, HTN, HLD was seen at bedside this morning accompanied by his for right great toe cellulitis. Patient states that he toe has been like this for 2 weeks. He currently denies any pain to the right hallux. Denies n/v/f/c/sob/cp. Past Patient History - Infectious Disease Hx of Infectious Diseases: None - Past Medical History & Family History Past Medical History?: Yes - Past Social History Smoking Status: Never Smoked - CARDIAC Hx Hypertension: Yes Hx Peripheral Edema: Yes - PULMONARY Hx Respiratory Disorders: No - NEUROLOGICAL Hx Neurological Disorder: Yes HX Cerebrovascular Accident: Yes (x2) - HEENT Hx HEENT Problems: Yes Hx Cataracts: Yes (BILAT) - RENAL Hx Chronic Kidney Disease: No - ENDOCRINE/METABOLIC Hx Endocrine Disorders: Yes Hx Diabetes Mellitus Type 2: Yes - HEMATOLOGICAL/ONCOLOGICAL Hx Blood Disorders: No - INTEGUMENTARY Hx Dermatological Problems: No - MUSCULOSKELETAL/RHEUMATOLOGICAL Hx Arthritis: Yes Hx Falls: Yes (with stroke in October 2016) - GASTROINTESTINAL Hx Gastrointestinal Disorders: No - GENITOURINARY/GYNECOLOGICAL Hx Genitourinary Disorders: Yes Hx Prostate Cancer: Yes (per md) - PSYCHIATRIC Hx Substance Use: No - SURGICAL HISTORY Hx Surgeries: Yes Hx Cataract Extraction: Yes (bilat) Other/Comment: I/D RECTAL ABSCESS X 2 - ANESTHESIA Hx Anesthesia: Yes Hx Anesthesia Reactions: No Hx Malignant Hyperthermia: No Meds Allergies/Adverse Reactions: Allergies Allergy/AdvReac Type Severity Reaction Status Date / Time No Known Allergies Allergy Verified 12/25/16 14:07 - Medications Medications: Current Medications Acetaminophen (Tylenol 650mg/20.3ml Solution Ud) 650 mg PO Q6 PRN PRN Reason: Pain, moderate (4-7) Last Admin: 12/26/16 09:56 Dose: 650 mg Aspirin (Ecotrin) 81 mg PO DAILY [facility] Last Admin: 12/26/16 09:55 Dose: 81 mg Clopidogrel Bisulfate (Plavix) 75 mg PO DAILY [facility] Last Admin: 12/26/16 09:55 Dose: 75 mg Furosemide (Lasix) 40 mg IVP DAILY [facility] Heparin Sodium (Porcine) (Heparin) 5,000 units SC Q12H [facility] Last Admin: 12/26/16 09:56 Dose: 5,000 units Piperacillin Sod/Tazobactam Sod (Zosyn 3.375 Gm Iv Premix) 3.375 gm in 50 mls @ 100 mls/hr IVPB Q8H [facility] Last Admin: 12/26/16 02:06 Dose: Not Given Insulin Human Regular (Novolin R) 0 unit SC ACHS [facility] PRN Reason: Protocol Last Admin: 12/26/16 07:30 Dose: 1 unit Losartan Potassium (Cozaar) 50 mg PO DAILY [facility] Last Admin: 12/26/16 09:55 Dose: 50 mg Multivitamins (Hexavitamin) 1 tab PO DAILY [facility] Last Admin: 12/26/16 10:00 Dose: 1 tab Potassium Chloride (K-Dur 20 Meq Er Tab) 20 meq PO DAILY [facility] Pregabalin (Lyrica) 75 mg PO DAILY [facility] Last Admin: 12/26/16 09:58 Dose: 75 mg Terazosin HCl (Hytrin) 1 mg PO HS [facility] Last Admin: 12/25/16 21:39 Dose: 1 mg Physical Exam - Constitutional Appears: Non-toxic, No Acute Distress - Extremities Exam Additional comments: lower extremity focused exam: Vasc:DP and PT pulses non-palpable b/l. Pulses monophasic upon doppler exam b/ l. Skin temperature warm to warm from proximal to distal b/l. Neuro: Gross sensation diminished b/l Derm: Ulceration noted to the right distal hallux with a necrotic tip, the proximal portion of the hallux is blanched. The distal tip is boggy, no drainage, no malodor noted. 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 Tariq chart, labs, vitals reviewed vascular, Dr. Martinez consulted GRANT/PVR pending cont IV abx per primary right hallux dressed with DSD podiatry will continue to follow patient while in house
--- NOTE | 2016-12-26 13:21 | CP.PCM.CON ---
History of Present Illness - History of Present Illness History of Present Illness: GENERAL SURGERY CONSULT NOTE FOR DR. VENCES 71M presents with right hallux pain and gangrene. Patient states that his symptoms started approximately 1-2 weeks ago. Patient states that he has never has this episode before. Patient is able to ambulate. Patient denies nausea, vomiting, fever, chills. PMH: DM, HTN, Obesity, Anemia PSH: Denies Social: Denies tobacco, ETOH and illicit drug use ALL: NKDA Past Patient History - Infectious Disease Hx of Infectious Diseases: None - Past Medical History & Family History Past Medical History?: Yes - Past Social History Smoking Status: Never Smoked - CARDIAC Hx Hypertension: Yes Hx Peripheral Edema: Yes - PULMONARY Hx Respiratory Disorders: No - NEUROLOGICAL Hx Neurological Disorder: Yes HX Cerebrovascular Accident: Yes (x2) - HEENT Hx HEENT Problems: Yes Hx Cataracts: Yes (BILAT) - RENAL Hx Chronic Kidney Disease: No - ENDOCRINE/METABOLIC Hx Endocrine Disorders: Yes Hx Diabetes Mellitus Type 2: Yes - HEMATOLOGICAL/ONCOLOGICAL Hx Blood Disorders: No - INTEGUMENTARY Hx Dermatological Problems: No - MUSCULOSKELETAL/RHEUMATOLOGICAL Hx Arthritis: Yes Hx Falls: Yes (with stroke in October 2016) - GASTROINTESTINAL Hx Gastrointestinal Disorders: No - GENITOURINARY/GYNECOLOGICAL Hx Genitourinary Disorders: Yes Hx Prostate Cancer: Yes (per md) - PSYCHIATRIC Hx Substance Use: No - SURGICAL HISTORY Hx Surgeries: Yes Hx Cataract Extraction: Yes (bilat) Other/Comment: I/D RECTAL ABSCESS X 2 - ANESTHESIA Hx Anesthesia: Yes Hx Anesthesia Reactions: No Hx Malignant Hyperthermia: No Meds Allergies/Adverse Reactions: Allergies Allergy/AdvReac Type Severity Reaction Status Date / Time No Known Allergies Allergy Verified 12/25/16 14:07 - Medications Medications: Current Medications Acetaminophen (Tylenol 650mg/20.3ml Solution Ud) 650 mg PO Q6 PRN PRN Reason: Pain, moderate (4-7) Last Admin: 12/26/16 09:56 Dose: 650 mg Aspirin (Ecotrin) 81 mg PO DAILY [facility] Last Admin: 12/26/16 09:55 Dose: 81 mg Clopidogrel Bisulfate (Plavix) 75 mg PO DAILY [facility] Last Admin: 12/26/16 09:55 Dose: 75 mg Furosemide (Lasix) 40 mg IVP DAILY [facility] Heparin Sodium (Porcine) (Heparin) 5,000 units SC Q12H [facility] Last Admin: 12/26/16 09:56 Dose: 5,000 units Piperacillin Sod/Tazobactam Sod (Zosyn 3.375 Gm Iv Premix) 3.375 gm in 50 mls @ 100 mls/hr IVPB Q8H [facility] Last Admin: 12/26/16 02:06 Dose: Not Given Insulin Human Regular (Novolin R) 0 unit SC ACHS [facility] PRN Reason: Protocol Last Admin: 12/26/16 07:30 Dose: 1 unit Losartan Potassium (Cozaar) 50 mg PO DAILY [facility] Last Admin: 12/26/16 09:55 Dose: 50 mg Multivitamins (Hexavitamin) 1 tab PO DAILY [facility] Last Admin: 12/26/16 10:00 Dose: 1 tab Potassium Chloride (K-Dur 20 Meq Er Tab) 20 meq PO DAILY [facility] Pregabalin (Lyrica) 75 mg PO DAILY [facility] Last Admin: 12/26/16 09:58 Dose: 75 mg Terazosin HCl (Hytrin) 1 mg PO HS [facility] Last Admin: 12/25/16 21:39 Dose: 1 mg Physical Exam - Constitutional Appears: Non-toxic, No Acute Distress - Eye Exam Eye Exam: EOMI, PERRL - Respiratory Exam Respiratory Exam: Clear to Auscultation Bilateral, NORMAL BREATHING PATTERN - Cardiovascular Exam Cardiovascular Exam: REGULAR RHYTHM, +S1, +S2 - Extremities Exam Extremities exam: Positive for: pedal edema. Negative for: calf tenderness, tenderness Additional comments: B/L lower extremity edema up to below the knee No venous stasis ulcerations Right foot dressed with curlex, CDI b/l DP/PT have doppler signals Right distal hallux gangrene as per podiatry - Neurological Exam Neurological exam: Alert, Oriented x3 - Psychiatric Exam Psychiatric exam: Normal Affect, Normal Mood - Skin Skin Exam: Dry, Intact, Normal Color, Warm Results - Vital Signs Recent Vital Signs: Last Vital Signs Temp 98.7 F 12/26/16 08:00 Pulse 88 12/26/16 08:00 Resp 20 12/26/16 08:00 BP 152/78 H 12/26/16 08:00 Pulse Ox 97 12/26/16 08:00 - Labs Result Diagrams: 12/25/16 15:59 12/25/16 15:59 Labs: Laboratory Results - last 24 hr 12/25/16 12/26/16 12/26/16 21:04 07:16 11:19 POC Glucose (mg/dL) 110 166 H 217 H Assessment & Plan - Assessment and Plan (Free Text) Assessment: 71M with history of DM, HTN presents with right hallux gangrene Plan: -F/u GRANT/PVR -CTA ordered -Dressing changes as per podiatry -Continue current medical management Further recommendation discussed with Dr. Juan Marrufo, PGY2
--- NOTE | 2016-12-26 15:03 | CP.PCM.PN ---
Subjective - Date & Time of Evaluation Date of Evaluation: 12/26/16 Time of Evaluation: 15:02 - Subjective Subjective: has tibial disease left with gangrene. needs imaging .ordered Objective - Vital Signs/Intake and Output Vital Signs (last 24 hours): Temp Pulse Resp BP Pulse Ox 98.7 F 88 20 152/78 H 97 12/26/16 08:00 12/26/16 08:00 12/26/16 08:00 12/26/16 08:00 12/26/16 08:00 Intake and Output: 12/26/16 12/26/16 06:59 18:59 Intake Total 500 Output Total 700 Balance -200 - Medications Medications: Current Medications Acetaminophen (Tylenol 650mg/20.3ml Solution Ud) 650 mg PO Q6 PRN PRN Reason: Pain, moderate (4-7) Last Admin: 12/26/16 09:56 Dose: 650 mg Aspirin (Ecotrin) 81 mg PO DAILY [facility] Last Admin: 12/26/16 09:55 Dose: 81 mg Clopidogrel Bisulfate (Plavix) 75 mg PO DAILY [facility] Last Admin: 12/26/16 09:55 Dose: 75 mg Furosemide (Lasix) 40 mg IVP DAILY [facility] Heparin Sodium (Porcine) (Heparin) 5,000 units SC Q12H [facility] Last Admin: 12/26/16 09:56 Dose: 5,000 units Piperacillin Sod/Tazobactam Sod (Zosyn 3.375 Gm Iv Premix) 3.375 gm in 50 mls @ 100 mls/hr IVPB Q8H [facility] Last Admin: 12/26/16 10:30 Dose: Not Given Insulin Human Regular (Novolin R) 0 unit SC ACHS [facility] PRN Reason: Protocol Last Admin: 12/26/16 11:30 Dose: 2 unit Losartan Potassium (Cozaar) 50 mg PO DAILY [facility] Last Admin: 12/26/16 09:55 Dose: 50 mg Multivitamins (Hexavitamin) 1 tab PO DAILY [facility] Last Admin: 12/26/16 10:00 Dose: 1 tab Potassium Chloride (K-Dur 20 Meq Er Tab) 20 meq PO DAILY [facility] Last Admin: 12/26/16 12:15 Dose: 20 meq Pregabalin (Lyrica) 75 mg PO DAILY [facility] Last Admin: 12/26/16 09:58 Dose: 75 mg Terazosin HCl (Hytrin) 1 mg PO [facility] Last Admin: 12/25/16 21:39 Dose: 1 mg
[2016-12-26] MEDS: Amoxicillin-Clav 875-125 mg Tab PO SCH (18:20)
--- NOTE | 2016-12-26 22:19 | CON ---
DATE: 12/26/2016 REQUESTING PHYSICIAN: Taryn Fisher MD HISTORY OF PRESENT ILLNESS: We see at bedside a 71-year-old [place] male, alert and oriented x3. He relates to having seen his private chef under yesterday and he was urged to be admitted. His bilateral lower extremities are edematous and difficult to palpate for pulses. 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 Imaging studies will be evaluated to see what level of amputation, which will be definitely required. The case was discussed at bedside with him and his . Vascular workup before any surgical intervention at this time. Adrian Zamudio DPM
[2016-12-27] MEDS: Piperacill/Tazo 3.375gm in Dex 3.375 GM/50 ML BAG IVPB SCH ×3 (03:58→17:51)
[2016-12-27] MEDS: Amoxicillin-Clav 875-125 mg Tab PO SCH ×2 (05:28→18:00)
--- NOTE | 2016-12-27 08:00 | CP.PCM.PN ---
Subjective - Date & Time of Evaluation Date of Evaluation: 12/27/16 Time of Evaluation: 07:57 - Subjective Subjective: SURGERY PROGRESS NOTE FOR DR VENCES 71M seen and examined at bedside. Patient resting comfortably, no acute events overnight. Objective - Vital Signs/Intake and Output Vital Signs (last 24 hours): Temp Pulse Resp BP Pulse Ox 98 F 93 H 20 168/78 H 97 12/27/16 00:00 12/27/16 00:00 12/27/16 00:00 12/27/16 00:00 12/27/16 00:00 Intake and Output: 12/27/16 12/27/16 06:59 18:59 Intake Total 240 Balance 240 - Medications Medications: Current Medications Acetaminophen (Tylenol 650mg/20.3ml Solution Ud) 650 mg PO Q6 PRN PRN Reason: Pain, moderate (4-7) Last Admin: 12/26/16 09:56 Dose: 650 mg Amoxicillin/Clavulanate Potassium (Augmentin 875 Mg-125 Mg Tab) 1 tab PO Q12H [facility] Last Admin: 12/27/16 05:28 Dose: 1 tab Aspirin (Ecotrin) 81 mg PO DAILY [facility] Last Admin: 12/26/16 09:55 Dose: 81 mg Clopidogrel Bisulfate (Plavix) 75 mg PO DAILY [facility] Last Admin: 12/26/16 09:55 Dose: 75 mg Furosemide (Lasix) 40 mg IVP DAILY [facility] Last Admin: 12/26/16 12:20 Dose: Not Given Heparin Sodium (Porcine) (Heparin) 5,000 units SC Q12H [facility] Last Admin: 12/26/16 21:58 Dose: 5,000 units Piperacillin Sod/Tazobactam Sod (Zosyn 3.375 Gm Iv Premix) 3.375 gm in 50 mls @ 100 mls/hr IVPB Q8H [facility] Last Admin: 12/27/16 03:58 Dose: Not Given Insulin Human Regular (Novolin R) 0 unit SC ACHS [facility] PRN Reason: Protocol Last Admin: 12/26/16 21:59 Dose: Not Given Losartan Potassium (Cozaar) 50 mg PO DAILY [facility] Last Admin: 12/26/16 09:55 Dose: 50 mg Multivitamins (Hexavitamin) 1 tab PO DAILY [facility] Last Admin: 12/26/16 10:00 Dose: 1 tab Potassium Chloride (K-Dur 20 Meq Er Tab) 20 meq PO DAILY [facility] Last Admin: 12/26/16 12:15 Dose: 20 meq Pregabalin (Lyrica) 75 mg PO DAILY [facility] Last Admin: 12/26/16 09:58 Dose: 75 mg Terazosin HCl (Hytrin) 1 mg PO HS [facility] Last Admin: 12/26/16 21:59 Dose: 1 mg - Constitutional Appears: Non-toxic, No Acute Distress - Respiratory Exam Respiratory Exam: Clear to Ausculation Bilateral, NORMAL BREATHING PATTERN - Cardiovascular Exam Cardiovascular Exam: REGULAR RHYTHM, +S1, +S2 - Extremities Exam Additional comments: right hallux gangrene, dressed with curlex. Doppler signals presents b/l PT/DP Assessment and Plan - Assessment and Plan (Free Text) Assessment: 71M with right hallux gangrene Plan: - follow up CTA, GRANT/PVR Discussed with Dr. Juan Marrufo, PGY2
[2016-12-27 08:08] LABS: RBC URINE < 1 /hpf (0-3); URINE BACTERIA RARE (<OCC); URINE BILIRUBIN NEGATIVE (NEGATIVE); URINE BLOOD NEGATIVE (NEGATIVE); URINE COLOR Straw (YELLOW); URINE GLUCOSE (UA) NORMAL (Normal); URINE KETONE NEGATIVE (NEGATIVE); URINE LEUKOCYTE ESTERASE TRACE Leu/uL (Negative); URINE PROTEIN 2+ mg/dL (NEGATIVE); URINE UROBILINOGEN NORMAL mg/dL (0.2-1.0); WBC URINE 3 /hpf (0-5)
[2016-12-27] MEDS: (Novolin R) Insulin Human Regular 100 units/ml vial SC SCH ×4 (08:26→21:53)
[2016-12-27] MEDS: Multiple Vitamins Tab PO SCH (09:03)
[2016-12-27] MEDS: Potassium Chloride 20 mEq ER Tab PO SCH (09:03)
--- NOTE | 2016-12-27 10:56 | CP.PCM.PN ---
Subjective - Date & Time of Evaluation Date of Evaluation: 12/27/16 Time of Evaluation: 10:56 - Subjective Subjective: Podiatry consult note for Dr. Tariq 71 year old male was seen at bedside this morning accompanied by his for right great toe cellulitis. He currently denies any pain to the right hallux. Denies n/v/f/c/sob/cp. Objective - Vital Signs/Intake and Output Vital Signs (last 24 hours): Temp Pulse Resp BP Pulse Ox 97.7 F 87 20 140/77 96 12/27/16 08:00 12/27/16 08:00 12/27/16 08:00 12/27/16 09:04 12/27/16 08:00 Intake and Output: 12/27/16 12/27/16 06:59 18:59 Intake Total 240 Balance 240 - Medications Medications: Current Medications Acetaminophen (Tylenol 650mg/20.3ml Solution Ud) 650 mg PO Q6 PRN PRN Reason: Pain, moderate (4-7) Last Admin: 12/26/16 09:56 Dose: 650 mg Amoxicillin/Clavulanate Potassium (Augmentin 875 Mg-125 Mg Tab) 1 tab PO Q12H [facility] Last Admin: 12/27/16 05:28 Dose: 1 tab Aspirin (Ecotrin) 81 mg PO DAILY [facility] Last Admin: 12/27/16 09:03 Dose: 81 mg Clopidogrel Bisulfate (Plavix) 75 mg PO DAILY [facility] Last Admin: 12/27/16 09:03 Dose: 75 mg Furosemide (Lasix) 40 mg IVP DAILY [facility] Last Admin: 12/27/16 09:04 Dose: 40 mg Heparin Sodium (Porcine) (Heparin) 5,000 units SC Q12H [facility] Last Admin: 12/27/16 09:04 Dose: 5,000 units Piperacillin Sod/Tazobactam Sod (Zosyn 3.375 Gm Iv Premix) 3.375 gm in 50 mls @ 100 mls/hr IVPB Q8H [facility] Last Admin: 12/27/16 03:58 Dose: Not Given Insulin Human Regular (Novolin R) 0 unit SC ACHS [facility] PRN Reason: Protocol Last Admin: 12/27/16 08:26 Dose: Not Given Losartan Potassium (Cozaar) 50 mg PO DAILY [facility] Last Admin: 12/27/16 09:03 Dose: 50 mg Multivitamins (Hexavitamin) 1 tab PO DAILY [facility] Last Admin: 12/27/16 09:03 Dose: 1 tab Potassium Chloride (K-Dur 20 Meq Er Tab) 20 meq PO DAILY [facility] Last Admin: 12/27/16 09:03 Dose: 20 meq Pregabalin (Lyrica) 75 mg PO DAILY [facility] Last Admin: 12/27/16 09:09 Dose: 75 mg Terazosin HCl (Hytrin) 1 mg PO HS [facility] Last Admin: 12/26/16 21:59 Dose: 1 mg - Constitutional Appears: Non-toxic, No Acute Distress - Extremities Exam Additional comments: lower extremity focused exam: Vasc: DP and PT pulses non-palpable b/l. Pulses monophasic upon doppler exam b/ l. Skin temperature warm to warm from proximal to distal b/l. Neuro: Gross sensation diminished b/l Derm: Ulceration noted to the right distal hallux with a necrotic tip, the proximal portion of the hallux is blanched. The distal tip is boggy, scant amount of drainage, no malodor noted. Ortho: No tenderness on palpation to right hallux - Neurological Exam Neurological Exam: Alert, Awake, Oriented x3 - Psychiatric Exam Psychiatric exam: Normal Affect, Normal Mood Assessment and Plan - Assessment and Plan (Free Text) Assessment: 71 year old male with right hallux gangrene Plan: patient examined and evaluated discussed in detail with attending, Dr. Tariq chart, labs, vitals reviewed vascular, Dr. Martinez consulted GRANT/PVR pending CTA per vascular right foot MRI pending cont IV abx per primary right hallux dressed with DSD podiatry will continue to follow patient while in house
--- NOTE | 2016-12-27 13:39 | RAD ---
PROCEDURE: CHEST RADIOGRAPH, 1 VIEW HISTORY: verify right PICC COMPARISON: Chest radiographs 12/26/2016 FINDINGS: LUNGS: Exam appears captured late in expiration. Right perihilar left basilar patchy opacity may reflect atelectasis or interval infiltrate. Small left pleural effusion is also not excluded. Cardiac silhouette is stable. No definite pulmonary vascular derangement. The right upper extremity PICC is been inserted terminating in the superior vena cava. No pneumothorax identified. PLEURA: As above CARDIOVASCULAR: As above OSSEOUS STRUCTURES: No significant abnormalities. VISUALIZED UPPER ABDOMEN: Normal. OTHER FINDINGS: None. IMPRESSION: Status post right upper extremity PICC insertion. No pneumothorax. Interval limited right perihilar and left basilar atelectasis or infiltrate is questioned as well a small left pleural effusion. Exam is appears captured at late expiratory phase and this may be a function of atelectasis. Follow-up chest radiography is advised.
[2016-12-27] MEDS ORDERED: Iodixanol 320 mg/ml 150 ml Bottle IV ONE (16:51)
[2016-12-27] MEDS ORDERED: Bisacodyl 5mg EC Tab PO PRN (17:36)
[2016-12-27] MEDS: POLYETHYLENE GLYCOL 3350 17 GM/Dose PACKET PO SCH (18:00)
--- NOTE | 2016-12-27 18:17 | CP.PCM.PN ---
Subjective - Date & Time of Evaluation Date of Evaluation: 12/27/16 Time of Evaluation: 18:15 - Subjective Subjective: ulcer toe chaged dressing today still infected on iv antibiotics bs monitered c/ o constipation Objective - Vital Signs/Intake and Output Vital Signs (last 24 hours): Temp Pulse Resp BP Pulse Ox 98.2 F 86 20 157/80 H 96 12/27/16 16:00 12/27/16 16:00 12/27/16 16:00 12/27/16 16:00 12/27/16 16:00 Intake and Output: 12/27/16 12/27/16 06:59 18:59 Intake Total 240 Balance 240 - Medications Medications: Current Medications Acetaminophen (Tylenol 650mg/20.3ml Solution Ud) 650 mg PO Q6 PRN PRN Reason: Pain, moderate (4-7) Last Admin: 12/26/16 09:56 Dose: 650 mg Amoxicillin/Clavulanate Potassium (Augmentin 875 Mg-125 Mg Tab) 1 tab PO Q12H [facility] Last Admin: 12/27/16 05:28 Dose: 1 tab Aspirin (Ecotrin) 81 mg PO DAILY [facility] Last Admin: 12/27/16 09:03 Dose: 81 mg Bisacodyl (Dulcolax) 5 mg PO HS PRN PRN Reason: Constipation Clopidogrel Bisulfate (Plavix) 75 mg PO DAILY [facility] Last Admin: 12/27/16 09:03 Dose: 75 mg Furosemide (Lasix) 40 mg IVP DAILY [facility] Last Admin: 12/27/16 09:04 Dose: 40 mg Heparin Sodium (Porcine) (Heparin) 5,000 units SC Q12H [facility] Last Admin: 12/27/16 09:04 Dose: 5,000 units Piperacillin Sod/Tazobactam Sod (Zosyn 3.375 Gm Iv Premix) 3.375 gm in 50 mls @ 100 mls/hr IVPB Q8H [facility] Last Admin: 12/27/16 17:51 Dose: 100 mls/hr Insulin Human Regular (Novolin R) 0 unit SC ACHS [facility] PRN Reason: Protocol Last Admin: 12/27/16 16:30 Dose: 1 unit Losartan Potassium (Cozaar) 50 mg PO DAILY [facility] Last Admin: 12/27/16 09:03 Dose: 50 mg Multivitamins (Hexavitamin) 1 tab PO DAILY [facility] Last Admin: 12/27/16 09:03 Dose: 1 tab Polyethylene Glycol (Miralax) 17 gm PO BID [facility] Potassium Chloride (K-Dur 20 Meq Er Tab) 20 meq PO DAILY [facility] Last Admin: 12/27/16 09:03 Dose: 20 meq Pregabalin (Lyrica) 75 mg PO DAILY [facility] Last Admin: 12/27/16 09:09 Dose: 75 mg Terazosin HCl (Hytrin) 1 mg PO HS [facility] Last Admin: 12/26/16 21:59 Dose: 1 mg - Constitutional Appears: Non-toxic - Head Exam Head Exam: NORMAL INSPECTION - Eye Exam Eye Exam: Normal appearance Pupil Exam: NORMAL ACCOMODATION - ENT Exam ENT Exam: Mucous Membranes Moist - Neck Exam Neck Exam: Full ROM - Respiratory Exam Respiratory Exam: NORMAL BREATHING PATTERN - Cardiovascular Exam Cardiovascular Exam: REGULAR RHYTHM - GI/Abdominal Exam GI & Abdominal Exam: Normal Bowel Sounds - Rectal Exam Rectal Exam: NORMAL INSPECTION - Exam Exam: NORMAL INSPECTION - Extremities Exam Extremities Exam: Pedal Edema - Back Exam Back Exam: NORMAL INSPECTION - Neurological Exam Neurological Exam: Alert, Normal Gait, Oriented x3 - Psychiatric Exam Psychiatric exam: Normal Affect - Skin Skin Exam: Normal Color Assessment and Plan - Assessment and Plan (Free Text) Assessment: infected diabetic foot ulcer obesity dm htn constipation Plan: as per orders
[2016-12-27] MEDS: Acetaminophen 650mg/20.3ml solution UD PO PRN (21:25)
--- NOTE | 2016-12-27 22:18 | CT ---
EXAM: CT Angiography Abdomen and Pelvis With Runoff to the Lower Extremities With Intravenous Contrast EXAM DATE/TIME: 12/27/2016 10:00 AM CLINICAL HISTORY: 71 years old, male; Condition or disease; Peripheral vascular disease; Additional info: Gangrene / tibial disease on left TECHNIQUE: Axial computed tomographic angiography images of the abdomen, pelvis and lower extremities with intravenous contrast using CT angiography protocol. All CT scans at this facility use one or more dose reduction techniques, viz.: automated exposure control; ma/kV adjustment per patient size (including targeted exams where dose is matched to indication; i.e. head); or iterative reconstruction technique. 3D and MIP reconstructed images were created and reviewed. Coronal and sagittal reformatted images were created and reviewed. CONTRAST: 150 mL of VISIPAQUE 320 administered intravenously. COMPARISON: No relevant prior studies available. FINDINGS: LIMITATIONS: Exam is overall limited due to suboptimal enhancement of the arterial vessels. LOWER THORAX: No infiltrate seen in the lung bases. VASCULATURE: AORTA: Diffuse atherosclerotic disease of the aorta. No evidence of abdominal aortic aneurysm or dissection. CELIAC TRUNK AND MESENTERIC ARTERIES: Atherosclerotic disease of the superior mesenteric artery and celiac trunk, and bilateral renal arteries with no evidence of occlusion. RENAL ARTERIES: See above. RIGHT ILIAC ARTERIES: Atherosclerotic disease of the iliac arteries bilaterally, with no evidence of significant stenosis or occlusion. RIGHT FEMORAL/POPLITEAL ARTERIES: Right common femoral and superficial femoral arteries demonstrate atherosclerotic disease, with no evidence of occlusion. Right popliteal artery demonstrates diffuse atherosclerotic disease. There is approximately 50% stenosis of the right superficial femoral artery distally, with no evidence of occlusion. RIGHT CALF/FOOT ARTERIES: Extensive atherosclerotic disease of the right calf arteries. Evaluation is limited due to suboptimal enhancement, enhancement or adjacent veins, and heavy atherosclerotic calcification, however, the right peroneal artery is patent but is very small in size. The right anterior tibial and peroneal arteries are suspected to be occluded. LEFT ILIAC ARTERIES: See above. LEFT FEMORAL/POPLITEAL ARTERIES: Extensive atherosclerotic disease of the left femoral and popliteal arteries, with no evidence of occlusion or significant stenosis. LEFT CALF/FOOT ARTERIES: Extensive atherosclerotic disease in the left calf arteries. Evaluation is limited due to suboptimal enhancement, enhancement of adjacent veins, and heavy atherosclerotic calcification, however, the left anterior tibial, peroneal and posterior tibial arteries are also suspected to be occluded. ABDOMEN: LIVER: Fatty infiltration of the liver. GALLBLADDER AND BILE DUCTS: No evidence of acute cholecystitis. PANCREAS: No evidence of acute pancreatitis. SPLEEN: No acute abnormality of the spleen identified. ADRENALS: No acute abnormality of the adrenal glands identified. KIDNEYS AND URETERS: No acute abnormality of the kidneys identified. STOMACH AND BOWEL: The colon is filled with air and fluid, and there is mild, diffuse colonic dilatation, with no definite transition point seen. Findings could be due to a diffuse ileus of the colon. APPENDIX: No findings to suggest acute appendicitis. PELVIS: BLADDER: No acute abnormality of the bladder is seen. REPRODUCTIVE: Probable TURP defect in the prostate gland. ABDOMEN, PELVIS and LOWER EXTREMITIES: INTRAPERITONEAL SPACE: No significant fluid collection. No free air. BONES/JOINTS: No acute bony abnormality identified. SOFT TISSUES: Diffuse subcutaneous edema in the lower legs and feet bilaterally, with no evidence of diffuse soft tissue gas. LYMPH NODES: No evidence of diffuse lymphadenopathy. IMPRESSION: - Limited exam due to suboptimal arterial enhancement. - Extensive atherosclerotic disease. - Suspect occlusion of the left calf arteries. - Suspect occlusion of the right anterior and posterior tibial arteries. Right peroneal artery is patent, but very small in size. - Extensive atherosclerotic disease of the iliac, femoral, and popliteal arteries, with no evidence of occlusion. - Findings which could be due to a diffuse ileus of the colon. - Diffuse subcutaneous edema in the lower legs and feet bilaterally, with no evidence of soft tissue gas. - See above for remaining findings.
[2016-12-28] MEDS: Piperacill/Tazo 3.375gm in Dex 3.375 GM/50 ML BAG IVPB SCH ×3 (03:00→18:30)
[2016-12-28] MEDS: (Novolin R) Insulin Human Regular 100 units/ml vial SC SCH ×5 (08:11→21:34)
[2016-12-28] MEDS: POLYETHYLENE GLYCOL 3350 17 GM/Dose PACKET PO SCH ×2 (09:00→09:20)
[2016-12-28] MEDS: Potassium Chloride 20 mEq ER Tab PO SCH (09:01)
[2016-12-28] MEDS: Multiple Vitamins Tab PO SCH (09:01)
[2016-12-28] MEDS: Amoxicillin-Clav 875-125 mg Tab PO SCH (12:55)
--- NOTE | 2016-12-28 12:57 | CP.PCM.PN ---
Subjective - Date & Time of Evaluation Date of Evaluation: 12/28/16 Time of Evaluation: 12:54 - Subjective Subjective: Podiatry consult note for Dr. Tariq 71 year old male was seen at bedside this morning accompanied by his for right great toe cellulitis. He currently denies any pain to the right hallux. He was seen this morning with no dressing to his right foot. Denies n/v/f/c/sob/ cp. Objective - Vital Signs/Intake and Output Vital Signs (last 24 hours): Temp Pulse Resp BP Pulse Ox 97.9 F 97 H 20 154/84 H 98 12/28/16 09:00 12/28/16 09:00 12/28/16 09:00 12/28/16 09:01 12/28/16 09:00 Intake and Output: 12/28/16 12/28/16 06:59 18:59 Intake Total 600 Output Total 500 Balance 100 - Medications Medications: Current Medications Acetaminophen (Tylenol 650mg/20.3ml Solution Ud) 650 mg PO Q6 PRN PRN Reason: Pain, moderate (4-7) Last Admin: 12/27/16 21:25 Dose: 650 mg Aspirin (Ecotrin) 81 mg PO DAILY [facility] Last Admin: 12/28/16 09:01 Dose: 81 mg Bisacodyl (Dulcolax) 10 mg [place] QD7 PRN PRN Reason: Constipation Clopidogrel Bisulfate (Plavix) 75 mg PO DAILY [facility] Last Admin: 12/28/16 09:00 Dose: 75 mg Furosemide (Lasix) 40 mg IVP DAILY [facility] Last Admin: 12/28/16 09:01 Dose: 40 mg Heparin Sodium (Porcine) (Heparin) 5,000 units SC Q12H [facility] Last Admin: 12/28/16 08:56 Dose: 5,000 units Piperacillin Sod/Tazobactam Sod (Zosyn 3.375 Gm Iv Premix) 3.375 gm in 50 mls @ 100 mls/hr IVPB Q8H [facility] Last Admin: 12/28/16 11:04 Dose: 100 mls/hr Insulin Human Regular (Novolin R) 0 unit SC ACHS [facility] PRN Reason: Protocol Last Admin: 12/28/16 12:28 Dose: 2 unit Losartan Potassium (Cozaar) 50 mg PO DAILY [facility] Last Admin: 12/28/16 09:01 Dose: 50 mg Multivitamins (Hexavitamin) 1 tab PO DAILY [facility] Last Admin: 12/28/16 09:01 Dose: 1 tab Polyethylene Glycol (Miralax) 17 gm PO DAILY [facility] Last Admin: 12/28/16 09:20 Dose: Not Given Potassium Chloride (K-Dur 20 Meq Er Tab) 20 meq PO DAILY [facility] Last Admin: 12/28/16 09:01 Dose: 20 meq Pregabalin (Lyrica) 75 mg PO DAILY [facility] Last Admin: 12/28/16 08:59 Dose: 75 mg Terazosin HCl (Hytrin) 1 mg PO HS [facility] Last Admin: 12/27/16 21:21 Dose: 1 mg - Constitutional Appears: Non-toxic, No Acute Distress - Extremities Exam Additional comments: lower extremity focused exam: Vasc: DP and PT pulses non-palpable b/l. Pulses monophasic upon doppler exam b/ l. Skin temperature warm to warm from proximal to distal b/l. Neuro: Gross sensation diminished b/l Derm: Ulceration noted to the right distal hallux with a necrotic tip, the proximal portion of the hallux is blanched. The distal tip is boggy, scant amount of drainage, no malodor noted. Ortho: No tenderness on palpation to right hallux - Neurological Exam Neurological Exam: Alert, Awake, Oriented x3 - Psychiatric Exam Psychiatric exam: Normal Affect, Normal Mood Assessment and Plan - Assessment and Plan (Free Text) Assessment: 71 year old male with right hallux gangrene Plan: patient examined and evaluated discussed in detail with attending, Dr. Tariq discussed with patient and the possibility for surgery next week chart, labs, vitals reviewed vascular, Dr. Martinez consulted GRANT/PVR pending CTA per vascular right foot MRI pending cont IV abx per primary right hallux dressed with DSD cont physical therapy podiatry will continue to follow patient while in house
--- NOTE | 2016-12-28 16:44 | MRI ---
PROCEDURE: MRI of the right foot without contrast HISTORY: right hallux gangrene COMPARISON: TECHNIQUE: MRI of the right foot was performed in multiple planes using multiple pulse sequences. FINDINGS: There is a history of gangrene of the hallux. There is a soft tissue defect at the tip of the big toe. There is also moderate amount of marrow edema in the distal phalanx consistent with osteomyelitis. The proximal phalanx and metatarsal are unremarkable. The remainder the foot is unremarkable. IMPRESSION: Moderate amount of marrow edema in the distal 1st phalanx consistent with osteomyelitis.
[2016-12-28 20:51] LABS: CHLORIDE 100 mmol/L (98-107); POTASSIUM 4.9 mmol/L (3.6-5.2); SODIUM 139 mmol/L (132-148)
[2016-12-28 20:54] LABS: BLOOD UREA NITROGEN 21 mg/dL (9-20); CARBON DIOXIDE 27 mmol/L (22-30); GFR AFRICAN-AMERICAN > 60; GLUCOSE,RANDOM 196 mg/dL (75-110)
[2016-12-28 20:55] LABS: CALCIUM 9.4 mg/dl (8.6-10.4)
--- NOTE | 2016-12-28 21:39 | CP.PCM.PN ---
Subjective - Date & Time of Evaluation Date of Evaluation: 12/28/16 Time of Evaluation: 08:00 - Subjective Subjective: SURGERY NOTE 71M seen and examined at bedside. NAEON Objective - Vital Signs/Intake and Output Vital Signs (last 24 hours): Temp Pulse Resp BP Pulse Ox 98 F 101 H 20 114/73 98 12/28/16 16:20 12/28/16 16:20 12/28/16 16:20 12/28/16 16:20 12/28/16 16:20 - Medications Medications: Current Medications Acetaminophen (Tylenol 650mg/20.3ml Solution Ud) 650 mg PO Q6 PRN PRN Reason: Pain, moderate (4-7) Last Admin: 12/27/16 21:25 Dose: 650 mg Aspirin (Ecotrin) 81 mg PO DAILY [facility] Last Admin: 12/28/16 09:01 Dose: 81 mg Bisacodyl (Dulcolax) 10 mg [place] QD7 PRN PRN Reason: Constipation Clopidogrel Bisulfate (Plavix) 75 mg PO DAILY [facility] Last Admin: 12/28/16 09:00 Dose: 75 mg Furosemide (Lasix) 40 mg IVP DAILY [facility] Last Admin: 12/28/16 09:01 Dose: 40 mg Piperacillin Sod/Tazobactam Sod (Zosyn 3.375 Gm Iv Premix) 3.375 gm in 50 mls @ 100 mls/hr IVPB Q8H [facility] Last Admin: 12/28/16 18:30 Dose: 100 mls/hr Insulin Human Regular (Novolin R) 0 unit SC ACHS [facility] PRN Reason: Protocol Last Admin: 12/28/16 21:34 Dose: Not Given Losartan Potassium (Cozaar) 50 mg PO DAILY [facility] Last Admin: 12/28/16 09:01 Dose: 50 mg Multivitamins (Hexavitamin) 1 tab PO DAILY [facility] Last Admin: 12/28/16 09:01 Dose: 1 tab Polyethylene Glycol (Miralax) 17 gm PO DAILY [facility] Last Admin: 12/28/16 09:20 Dose: Not Given Potassium Chloride (K-Dur 20 Meq Er Tab) 20 meq PO DAILY [facility] Last Admin: 12/28/16 09:01 Dose: 20 meq Pregabalin (Lyrica) 75 mg PO DAILY [facility] Last Admin: 12/28/16 08:59 Dose: 75 mg Terazosin HCl (Hytrin) 1 mg PO HS [facility] Last Admin: 12/28/16 21:36 Dose: 1 mg - Labs Labs: 12/28/16 20:28 - Constitutional Appears: Non-toxic, No Acute Distress - Respiratory Exam Respiratory Exam: Clear to Ausculation Bilateral, NORMAL BREATHING PATTERN - Cardiovascular Exam Cardiovascular Exam: REGULAR RHYTHM, +S1, +S2 Assessment and Plan - Assessment and Plan (Free Text) Assessment: 71M with PVD Plan: - Prepare for Angio 12/[address] Juan Marrufo, PGY2
[2016-12-29] MEDS: Lactated Ringer's 1,000 ML IV SCH ×3 (00:30→18:35)
[2016-12-29] MEDS: Piperacill/Tazo 3.375gm in Dex 3.375 GM/50 ML BAG IVPB SCH ×3 (03:00→18:34)
[2016-12-29 07:17] LABS: BASO # 0.1 K/uL (0.0-0.2); BASO % 0.6 % (0.0-2.0); EOS # 0.5 K/uL (0.0-0.7); EOS % 5.5 % (0.0-4.0); HEMATOCRIT 29.3 % (35.0-51.0); LYMPH # 1.7 K/uL (1.0-4.3); MEAN CELL VOLUME 88.2 fL (80.0-94.0); MEAN CORPUSCULAR HEMOGLOBIN 29.7 pg (27.0-31.0); MEAN CORPUSCULAR HGB CONC 33.6 g/dL (33.0-37.0); MEAN PLATELET VOLUME 7.8 fL (7.2-11.7); MONO # 0.9 K/uL (0.0-0.8); NRBC % 0.1 % (0.0-2.0); WHITE BLOOD COUNT 9.8 K/uL (4.8-10.8)
[2016-12-29 07:30] LABS: INR 1.1
[2016-12-29] MEDS: (Novolin R) Insulin Human Regular 100 units/ml vial SC SCH ×4 (07:35→21:52)
[2016-12-29] MEDS: Acetaminophen 650mg/20.3ml solution UD PO PRN ×2 (08:01→21:48)
[2016-12-29 08:07] LABS: CHLORIDE 103 mmol/L (98-107); POTASSIUM 4.5 mmol/L (3.6-5.2); SODIUM 138 mmol/L (132-148)
[2016-12-29 08:10] LABS: ALB/GLOB RATIO 0.8 (1.0-2.1); ALKALINE PHOSPHATASE 64 U/L (38-126); ALT/SGPT 33 U/L (21-72); AST/SGOT 16 U/L (17-59); BILIRUBIN,TOTAL 0.5 mg/dL (0.2-1.3); BLOOD UREA NITROGEN 20 mg/dL (9-20); CARBON DIOXIDE 25 mmol/L (22-30); GFR AFRICAN-AMERICAN > 60; GLUCOSE,RANDOM 131 mg/dL (75-110); TOTAL PROTEIN 6.3 g/dL (6.3-8.3)
[2016-12-29 08:11] LABS: CALCIUM 8.5 mg/dl (8.6-10.4)
--- NOTE | 2016-12-29 12:29 | CP.PCM.PN ---
Subjective - Date & Time of Evaluation Date of Evaluation: 12/29/16 Time of Evaluation: 10:00 - Subjective Subjective: Podiatry progress note for Dr. Tariq 71 year old male was seen at bedside this morning accompanied by his for right great toe gangrene. Patient is resting comfortably in bed. Patient states he is nervous and eager to find out the results of his vascular studies today. Dressing to right foot clean, dry and intact. Patient denies any pain in the toe or foot at this time. Denies F/C/N/V/SOB. Objective - Vital Signs/Intake and Output Vital Signs (last 24 hours): Temp Pulse Resp BP Pulse Ox 97.9 F 86 20 131/76 97 12/29/16 08:00 12/29/16 08:00 12/29/16 08:00 12/29/16 08:00 12/29/16 08:00 Intake and Output: 12/29/16 12/29/16 06:59 18:59 Intake Total 1490 Balance 1490 - Medications Medications: Current Medications Acetaminophen (Tylenol 650mg/20.3ml Solution Ud) 650 mg PO Q6 PRN PRN Reason: Pain, moderate (4-7) Last Admin: 12/29/16 08:01 Dose: 650 mg Aspirin (Ecotrin) 81 mg PO DAILY [facility] Last Admin: 12/28/16 09:01 Dose: 81 mg Bisacodyl (Dulcolax) 10 mg [place] QD7 PRN PRN Reason: Constipation Last Admin: 12/27/16 21:50 Dose: 10 mg Clopidogrel Bisulfate (Plavix) 75 mg PO DAILY [facility] Last Admin: 12/28/16 09:00 Dose: 75 mg Furosemide (Lasix) 40 mg IVP DAILY [facility] Last Admin: 12/28/16 09:01 Dose: 40 mg Piperacillin Sod/Tazobactam Sod (Zosyn 3.375 Gm Iv Premix) 3.375 gm in 50 mls @ 100 mls/hr IVPB Q8H [facility] Last Admin: 12/29/16 10:14 Dose: 100 mls/hr Lactated Ringer's (Lactated Ringer's) 1,000 mls @ 125 mls/hr IV .Q8H [facility] Last Admin: 12/29/16 07:45 Dose: Not Given Insulin Human Regular (Novolin R) 0 unit SC ACHS [facility] PRN Reason: Protocol Last Admin: 12/29/16 07:35 Dose: Not Given Losartan Potassium (Cozaar) 50 mg PO DAILY [facility] Last Admin: 12/29/16 10:16 Dose: Not Given Multivitamins (Hexavitamin) 1 tab PO DAILY [facility] Last Admin: 12/28/16 09:01 Dose: 1 tab Polyethylene Glycol (Miralax) 17 gm PO DAILY [facility] Last Admin: 12/28/16 09:20 Dose: Not Given Potassium Chloride (K-Dur 20 Meq Er Tab) 20 meq PO DAILY [facility] Last Admin: 12/28/16 09:01 Dose: 20 meq Pregabalin (Lyrica) 75 mg PO DAILY [facility] Last Admin: 12/28/16 08:59 Dose: 75 mg Terazosin HCl (Hytrin) 1 mg PO HS [facility] Last Admin: 12/28/16 21:36 Dose: 1 mg - Labs Labs: 12/29/16 07:10 12/29/16 07:10 PT 12.1 SECONDS (9.7-12.2) 12/29/16 07:10 INR 1.1 12/29/16 07:10 APTT 33 SECONDS (21-34) 12/29/16 07:10 - Constitutional Appears: Well, Non-toxic, No Acute Distress - Extremities Exam Additional comments: Right lower extremity focused exam: Vasc: DP and PT pulses non-palpable due to +2 pitting edema perimalleolarly and dorsum of foot. Temperature gradient warm to warm from proximal to distal. Neuro: Protective sensation grossly diminished. Derm: Ulceration noted to the distal hallux with significant necrotic changes to distal tip of digit. The proximal aspect of the hallux is blanched. The distal tip is boggy, scant amount of serosanguinous drainage, no malodor noted. Ortho: Tenderness noted upon deep palpation of distal hallux. 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 Tariq Chart, labs, vitals reviewed - afebrile, WBC 9.8 MRI results reviewed: marrow edema in distal phalanx consistent with OM Informed patient of MRI results showing bone infection in the tip of the right big toe Discussed with patient and all treatment options including IV abx or surgery to remove the tip of the toe Right hallux dressed with DSD Vascular, Dr. Martinez consulted GRANT/PVR pending - patient taken to test immediately following bedside visit/ dressing change today CTA per vascular Cont IV abx per primary Cont physical therapy Podiatry will continue to follow patient while in house
--- NOTE | 2016-12-29 13:01 | CP.PCM.PN ---
Subjective - Date & Time of Evaluation Date of Evaluation: 12/29/16 Time of Evaluation: 12:59 - Subjective Subjective: pt has osteomilitis and gangreen bs monitered Objective - Vital Signs/Intake and Output Vital Signs (last 24 hours): Temp Pulse Resp BP Pulse Ox 97.9 F 86 20 131/76 97 12/29/16 08:00 12/29/16 08:00 12/29/16 08:00 12/29/16 08:00 12/29/16 08:00 Intake and Output: 12/29/16 12/29/16 06:59 18:59 Intake Total 1490 Balance 1490 - Medications Medications: Current Medications Acetaminophen (Tylenol 650mg/20.3ml Solution Ud) 650 mg PO Q6 PRN PRN Reason: Pain, moderate (4-7) Last Admin: 12/29/16 08:01 Dose: 650 mg Aspirin (Ecotrin) [address] [facility] Last Admin: 12/28/16 09:01 Dose: 81 mg Bisacodyl (Dulcolax) 10 mg [place] QD7 PRN PRN Reason: Constipation Last Admin: 12/27/16 21:50 Dose: 10 mg Clopidogrel Bisulfate (Plavix) [address] [facility] Last Admin: 12/28/16 09:00 Dose: 75 mg Furosemide (Lasix) [address] [facility] Last Admin: 12/28/16 09:01 Dose: 40 mg Piperacillin Sod/Tazobactam Sod (Zosyn 3.375 Gm Iv Premix) 3.375 gm in 50 mls @ 100 mls/hr IVPB Q8H [facility] Last Admin: 12/29/16 10:14 Dose: 100 mls/hr Lactated Ringer's (Lactated Ringer's) 1,000 mls @ 125 mls/hr IV .Q8H [facility] Last Admin: 12/29/16 07:45 Dose: Not Given Insulin Human Regular (Novolin R) [address] [facility] PRN Reason: Protocol Last Admin: 12/29/16 07:35 Dose: Not Given Losartan Potassium (Cozaar) [address] [facility] Last Admin: 12/29/16 10:16 Dose: Not Given Multivitamins (Hexavitamin) [address] [facility] Last Admin: 12/28/16 09:01 Dose: 1 tab Polyethylene Glycol (Miralax) [address] [facility] Last Admin: 12/28/16 09:20 Dose: Not Given Potassium Chloride (K-Dur 20 Meq Er Tab) [address] [facility] Last Admin: 12/28/16 09:01 Dose: 20 meq Pregabalin (Lyrica) [address] [facility] Last Admin: 12/28/16 08:59 Dose: 75 mg Terazosin HCl (Hytrin) [address] [facility] Last Admin: 12/28/16 21:36 Dose: 1 mg - Labs Labs: 12/29/16 07:10 12/29/16 07:10 PT 12.1 SECONDS (9.7-12.2) 12/29/16 07:10 INR 1.1 12/29/16 07:10 APTT 33 SECONDS (21-34) 12/29/16 07:10 - Constitutional Appears: Non-toxic - Head Exam Head Exam: NORMAL INSPECTION - Eye Exam Eye Exam: Normal appearance Pupil Exam: NORMAL ACCOMODATION - ENT Exam ENT Exam: Normal Exam - Neck Exam Neck Exam: Full ROM - Respiratory Exam Respiratory Exam: Clear to Ausculation Bilateral - Cardiovascular Exam Cardiovascular Exam: REGULAR RHYTHM - GI/Abdominal Exam GI & Abdominal Exam: Normal Bowel Sounds - Rectal Exam Rectal Exam: NORMAL INSPECTION - Exam Exam: NORMAL INSPECTION - Extremities Exam Extremities Exam: Pedal Edema Additional comments: foort - Psychiatric Exam Psychiatric exam: Normal Affect - Skin Skin Exam: Normal Color Assessment and Plan - Assessment and Plan (Free Text) Assessment: infection gagrenos osteomilitis dm Plan: cont as per orders
[2016-12-29] MEDS ORDERED: Midazolam 2 MG/2 ML VIAL ONE (13:49)
[2016-12-29] MEDS ORDERED: Propofol 10 mg/ml Inj (20 ML) ONE ×2 (13:49)
[2016-12-29] MEDS ORDERED: Lidocaine 2% Inj (20ml) ONE (14:18)
[2016-12-29] MEDS ORDERED: Iodixanol 320 MG/ML 100 ML BOTTLE IV ONE (14:22)
--- NOTE | 2016-12-29 15:43 | PCM.SURG1 ---
Surgeon's Initial Post Op Note - Surgeon's Notes Surgeon: salvador Sharepoint Application Architect: 0 Type of Anesthesia: IV Sedation Anesthesia Administered By: liliana Pre-Operative Diagnosis: ischemic foot ulcer Operative Findings: severe tibial disease on right. anterior tibial and posterior tibial occluded proximally with reconstitution in foot. disease peroneal artery ar origin but major vessel to foot Post-Operative Diagnosis: same Operation Performed: aortofemoral angiogram. selctive catherization of right femoral artery. pathway atherectomy and balloon angioplasty(3mm) of peroneal artery. perclose of left groin Specimen/Specimens Removed: 0 Estimated Blood Loss: EBL {In ML}: 25 Blood Products Given: N/A Drains Used: No Drains Post-Op Condition: Good Date of Surgery/Procedure: 12/29/16 Time of Surgery/Procedure: 15:43
[2016-12-29] MEDS: POLYETHYLENE GLYCOL 3350 17 GM/Dose PACKET PO SCH (17:57)
[2016-12-29] MEDS: Multiple Vitamins Tab PO SCH (17:58)
[2016-12-29] MEDS: Potassium Chloride 20 mEq ER Tab PO SCH (17:58)
--- NOTE | 2016-12-29 19:11 | CP.PCM.CON ---
History of Present Illness - History of Present Illness History of Present Illness: 71M presents with right hallux pain and gangrene. Patient states that his symptoms started approximately 1-2 weeks ago. Patient states that he has never has this episode before. Patient is able to ambulate. Patient denies nausea, vomiting, fever, chills. s/p angiop[lasty for right great toe gangrene IV rx in progress + OM right hallux PMH: DM, HTN, Obesity, Anemia PSH: Denies Social: Denies tobacco, ETOH and illicit drug use ALL: NKDA Review of Systems - Review of Systems All systems: reviewed and no additional remarkable complaints except - Constitutional Constitutional: As Per HPI - EENT Eyes: absent: As Per HPI, Blind Spots, Blurred Vision, Change in Vision, Decreased Night Vision, Diplopia, Discharge, Dry Eye, Exophthalmos, Floaters, Irritation, Itchy Eyes, Loss of Peripheral Vision, Pain, Photophobia, Requires Corrective Lenses, Sees Flashes, Spots in Vision, Tunnel Vision, Other Visual Disturbances, Loss of Vision, Other Ears: absent: As Per HPI, Decreased Hearing, Ear Discharge, Ear Pain, Tinnitus, Abnormal Hearing, Disequilibrium, Dizziness, Other Nose/Mouth/Throat: absent: As Per HPI, Epistaxis, Nasal Congestion, Nasal Discharge, Nasal Obstruction, Nasal Trauma, Nose Pain, Post Nasal Drip, Sinus Pain, Sinus Pressure, Bleeding Gums, Change in Voice, Dental Pain, Dry Mouth, Dysphagia, Halitosis, Hoarsness, Lip Swelling, Mouth Lesions, Mouth Pain, Odynophagia, Sore Throat, Throat Swelling, Tongue Swelling, Facial Pain, Neck Pain, Neck Mass, Other - Cardiovascular Cardiovascular: As Per HPI - Respiratory Respiratory: absent: As Per HPI, Cough, Dyspnea, Hemoptysis, Dyspnea on Exertion , Wheezing, Snoring, Stridor, Pain on Inspiration, Chest Congestion, Excessive Mucous Production, Change in Mucous Color, Pain with Coughing, Other - Gastrointestinal Gastrointestinal: absent: As Per HPI, Abdominal Pain, Belching, Bloating, Change in Bowel Habits, Change in Stool Character, Coffee Ground Emesis, Constipation, Cramping, Diarrhea, Dyspepsia, Dysphagia, Early Satiety, Excessive Flatus, Fecal Incontinence, Heartburn, Hematemesis, Hematochezia, Loose Stools, Melena, Nausea, Odynophagia, Temesmus, Vomiting, Other - Genitourinary Genitourinary: absent: As Per HPI, Change in Urinary Stream, Difficulty Urinating, Dysuria, Flank Pain, Hematuria, Pyuria, Nocturia, Urinary Incontinence, Urinary Frequency, Urinary Hesitance, Urinary Urgency, Voiding Freq/Small Amts, Freq UTI, Hx Renal/Bladder Calculi, Hx /Renal Surgery, Bladder Distension, Other - Musculoskeletal Musculoskeletal: As Per HPI - Integumentary Integumentary: As Per HPI, Skin Pain, Wounds - Neurological Neurological: As Per HPI Past Patient History - Infectious Disease Hx of Infectious Diseases: None - Past Medical History & Family History Past Medical History?: Yes - Past Social History Smoking Status: Never Smoked - CARDIAC Hx Hypertension: Yes Hx Peripheral Edema: Yes - PULMONARY Hx Respiratory Disorders: No - NEUROLOGICAL Hx Neurological Disorder: Yes HX Cerebrovascular Accident: Yes (x2) - HEENT Hx HEENT Problems: Yes Hx Cataracts: Yes (BILAT) - RENAL Hx Chronic Kidney Disease: No - ENDOCRINE/METABOLIC Hx Endocrine Disorders: Yes Hx Diabetes Mellitus Type 2: Yes - HEMATOLOGICAL/ONCOLOGICAL Hx Blood Disorders: No - INTEGUMENTARY Hx Dermatological Problems: No - MUSCULOSKELETAL/RHEUMATOLOGICAL Hx Arthritis: Yes Hx Falls: Yes (with stroke in October 2016) - GASTROINTESTINAL Hx Gastrointestinal Disorders: No - GENITOURINARY/GYNECOLOGICAL Hx Genitourinary Disorders: Yes Hx Prostate Cancer: Yes (per md) - PSYCHIATRIC Hx Substance Use: No - SURGICAL HISTORY Hx Surgeries: Yes Hx Cataract Extraction: Yes (bilat) Other/Comment: I/D RECTAL ABSCESS X 2 - ANESTHESIA Hx Anesthesia: Yes Hx Anesthesia Reactions: No Hx Malignant Hyperthermia: No Meds Home Medications: Home Medication List Medication Instructions Recorded Confirmed Type Vancomycin [Vancomycin Inj] 1 gm IVPB 1600 vial 01/01/17 Rx Allergies/Adverse Reactions: Allergies Allergy/AdvReac Type Severity Reaction Status Date / Time No Known Allergies Allergy Verified 12/25/16 14:07 - Medications Medications: Current Medications Acetaminophen (Tylenol 650mg/20.3ml Solution Ud) 650 mg PO Q6 PRN PRN Reason: Pain, moderate (4-7) Last Admin: 12/29/16 08:01 Dose: 650 mg Aspirin (Ecotrin) 81 mg PO DAILY [facility] Last Admin: 12/29/16 17:58 Dose: 81 mg Bisacodyl (Dulcolax) 10 mg [place] QD7 PRN PRN Reason: Constipation Last Admin: 12/27/16 21:50 Dose: 10 mg Clopidogrel Bisulfate (Plavix) 75 mg PO DAILY [facility] Last Admin: 12/28/16 09:00 Dose: 75 mg Furosemide (Lasix) 40 mg IVP DAILY [facility] Last Admin: 12/29/16 18:39 Dose: 40 mg Piperacillin Sod/Tazobactam Sod (Zosyn 3.375 Gm Iv Premix) 3.375 gm in 50 mls @ 100 mls/hr IVPB Q8H [facility] Last Admin: 12/29/16 18:34 Dose: 100 mls/hr Lactated Ringer's (Lactated Ringer's) 1,000 mls @ 125 mls/hr IV .Q8H [facility] Last Admin: 12/29/16 18:35 Dose: 125 mls/hr Insulin Human Regular (Novolin R) 0 unit SC ACHS [facility] PRN Reason: Protocol Last Admin: 12/29/16 18:00 Dose: Not Given Losartan Potassium (Cozaar) 50 mg PO DAILY [facility] Last Admin: 12/29/16 10:16 Dose: Not Given Multivitamins (Hexavitamin) 1 tab PO DAILY [facility] Last Admin: 12/29/16 17:58 Dose: 1 tab Polyethylene Glycol (Miralax) 17 gm PO DAILY [facility] Last Admin: 12/29/16 17:57 Dose: 17 gm Potassium Chloride (K-Dur 20 Meq Er Tab) 20 meq PO DAILY [facility] Last Admin: 12/29/16 17:58 Dose: 20 meq Pregabalin (Lyrica) 75 mg PO DAILY [facility] Last Admin: 12/29/16 17:58 Dose: 75 mg Terazosin HCl (Hytrin) 1 mg PO HS [facility] Last Admin: 12/29/16 17:59 Dose: 1 mg Physical Exam - Constitutional Appears: Non-toxic, Chronically Ill - Head Exam Head Exam: NORMOCEPHALIC - Eye Exam Eye Exam: PERRL. absent: Scleral icterus - ENT Exam ENT Exam: Mucous Membranes Dry, Normal External Ear Exam - Neck Exam Neck exam: Negative for: Lymphadenopathy - Respiratory Exam Respiratory Exam: Decreased Breath Sounds - Cardiovascular Exam Cardiovascular Exam: REGULAR RHYTHM, +S1, +S2 - GI/Abdominal Exam GI & Abdominal Exam: Diminished Bowel Sounds, Soft. absent: Tenderness - Rectal Exam Rectal Exam: Deferred - Exam Exam: NORMAL INSPECTION - Extremities Exam Extremities exam: Positive for: pedal edema, tenderness, pedal pulses present. Negative for: calf tenderness - Back Exam Back exam: absent: CVA tenderness (L), CVA tenderness (R) - Neurological Exam Neurological exam: Alert, CN II-XII Intact, Oriented x3, Reflexes Normal Results - Vital Signs Recent Vital Signs: Last Vital Signs Temp 98.1 F 12/29/16 18:00 Pulse 103 H 12/29/16 18:00 Resp 20 12/29/16 18:00 BP 131/77 12/29/16 18:39 Pulse Ox 99 12/29/16 18:00 - Labs Result Diagrams: 12/30/16 06:44 12/31/16 06:45 Labs: Laboratory Results - last 24 hr 12/28/16 12/28/16 12/29/16 20:28 21:08 07:10 WBC 9.8 RBC 3.33 L Hgb 9.9 L Hct 29.3 L MCV 88.2 MCH 29.7 MCHC 33.6 RDW 13.0 Plt Count 299 MPV 7.8 Neut % (Auto) 67.9 Lymph % (Auto) 17.0 L [place] % (Auto) 9.0 Eos % (Auto) 5.5 H Baso % (Auto) 0.6 Neut # 6.6 Lymph # 1.7 [place] # 0.9 H Eos # 0.5 Baso # 0.1 PT INR APTT Sodium 139 Potassium 4.9 Chloride 100 Carbon Dioxide 27 Anion Gap 17 BUN 21 H Creatinine 1.3 Est GFR ( Amer) > 60 Est GFR (Non-Af Amer) 54 POC Glucose (mg/dL) 225 H Random Glucose 196 H Calcium 9.4 Total Bilirubin AST ALT Alkaline Phosphatase Total Protein Albumin Globulin Albumin/Globulin Ratio 12/29/16 12/29/16 12/29/16 07:10 07:10 07:20 WBC RBC Hgb Hct MCV MCH MCHC RDW Plt Count MPV Neut % (Auto) Lymph % (Auto) [place] % (Auto) Eos % (Auto) Baso % (Auto) Neut # Lymph # [place] # Eos # Baso # PT 12.1 INR 1.1 APTT 33 Sodium 138 Potassium 4.5 Chloride 103 Carbon Dioxide 25 Anion Gap 15 BUN 20 Creatinine 1.3 Est GFR ( Amer) > 60 Est GFR (Non-Af Amer) 54 POC Glucose (mg/dL) 171 H Random Glucose 131 H Calcium 8.5 L Total Bilirubin 0.5 AST 16 L ALT 33 Alkaline Phosphatase 64 Total Protein 6.3 Albumin 2.9 L Globulin 3.5 Albumin/Globulin Ratio 0.8 L 12/29/16 17:08 WBC RBC Hgb Hct MCV MCH MCHC RDW Plt Count MPV Neut % (Auto) Lymph % (Auto) [place] % (Auto) Eos % (Auto) Baso % (Auto) Neut # Lymph # [place] # Eos # Baso # PT INR APTT Sodium Potassium Chloride Carbon Dioxide Anion Gap BUN Creatinine Est GFR ( Amer) Est GFR (Non-Af Amer) POC Glucose (mg/dL) 135 H Random Glucose Calcium Total Bilirubin AST ALT Alkaline Phosphatase Total Protein Albumin Globulin Albumin/Globulin Ratio Assessment & Plan (1) Osteomyelitis Status: Acute (2) Abscess of great toe Status: Acute (3) Acute CVA (cerebrovascular accident) Status: Acute (4) Diabetes mellitus Status: Acute (5) Weakness Status: Acute - Assessment and Plan (Free Text) Assessment: await cultures cont iv rx will follow
[2016-12-30 01:08] LABS: PSA 1.87 ng/mL
[2016-12-30] MEDS: Piperacill/Tazo 3.375gm in Dex 3.375 GM/50 ML BAG IVPB SCH ×3 (03:00→18:06)
--- NOTE | 2016-12-30 05:36 | OP ---
OPERATIVE ANGIOGRAM REPORT PROCEDURE DATE: 12/29/2016 PREOPERATIVE DIAGNOSIS: Ischemic ulceration of right great toe. PROCEDURES CARRIED OUT: Aortofemoral angiogram with selective catheterization of right femoral artery, pathway atherectomy of the peroneal artery and balloon angioplasty. SURGEON: Dr. Martinez. HEAVY TRUCK DRIVER: None. ANESTHESIOLOGIST: Mr. Erickson. INDICATIONS: The patient is a 71-year-old male, diabetic with ischemic ulcers on the foot. Access was obtained from the left groin. The catheter was advanced to the level of the renal artery. Overlapping films were taken at this level down to the area of the knee. Below the area of the knee, only picture taken on the right side because of the body habitus as such both images on the field at the same time. More importantly I wanted to limit the amount of dye given. OPERATIVE FINDINGS: The aorta and renal arteries were free of significant occlusive disease. Both common internal, external, superficial femoral, common femoral, and the profunda femoris arteries were widely patent. On the both sides, the superficial femoral arteries are widely patent down to the area of the knee. As I said, on the left side, we did not obtain detailed pictures below the knee. On the right side, there is severe tibial disease with occlusion of the anterior tibial soon after its origin and reconstitution at the level of the ankle. The posterior tibial was not visualized proximally and reconstituted in the distal third of the calf. The peroneal artery was a major vessel into the foot. This was severely stenotic over 99% of its proximal segment. Subsequent to the performance of the diagnostic arteriogram, a stiff-angled guidewire was advanced through the aortic bifurcation and 7-Kinyarwanda sheath was positioned in the distal popliteal artery. Using road-mapping techniques and using an 0.14 wire, the area was crossed, this was subsequently exchanged with a stiff wire. Heparin was given. A pathway atherectomy device 2.0 mm was then used to create successfully and has the films subsequently showed good results and then we ballooned this with a 3 mm balloon. The final cosmetic result was excellent. There was excellent flow through the foot. A Perclose device was deployed in the left groin. So the operation carried out. Aortofemoral angiogram via left groin with selective catheterization of the right femoral artery, pathway atherectomy of the right peroneal artery with balloon angioplasty using a 3 mm balloon. Sebastian Martinez Jr., MD cc: DWIGHT Pham Dr.
[2016-12-30 07:18] LABS: HEMATOCRIT 30.1 % (35.0-51.0); MEAN CELL VOLUME 88.3 fL (80.0-94.0); MEAN CORPUSCULAR HEMOGLOBIN 28.5 pg (27.0-31.0); MEAN CORPUSCULAR HGB CONC 32.3 g/dL (33.0-37.0); MEAN PLATELET VOLUME 7.7 fL (7.2-11.7); RED CELL DISTRIBUTION WIDTH 13.2 % (11.5-14.5); WHITE BLOOD COUNT 11.1 K/uL (4.8-10.8)
--- NOTE | 2016-12-30 07:36 | CP.PCM.PN ---
Subjective - Date & Time of Evaluation Date of Evaluation: 12/30/16 Time of Evaluation: 07:33 - Subjective Subjective: Vascular Surgery Progress Note for Dr. Martinez Patient seen and examined at bedside. No acute event overnight. Patient lying in bed complaining of back pain and wants to sit in chair. He is s/p aortofemoral angiogram, selctive catherization of right femoral artery, pathway atherectomy and balloon angioplasty of peroneal artery POD #1. RLE well controlled with medications. RLE Pulses are identified with doppler. Patient tolerating diet. No other complaints at this time. Objective - Vital Signs/Intake and Output Vital Signs (last 24 hours): Temp Pulse Resp BP Pulse Ox 98.4 F 99 H 20 125/75 98 12/30/16 00:00 12/30/16 00:00 12/30/16 00:00 12/30/16 00:00 12/30/16 00:00 Intake and Output: 12/30/16 12/30/16 06:59 18:59 Intake Total 1300 Balance 1300 - Medications Medications: Current Medications Acetaminophen (Tylenol 650mg/20.3ml Solution Ud) 650 mg PO Q6 PRN PRN Reason: Pain, moderate (4-7) Last Admin: 12/29/16 21:48 Dose: 650 mg Aspirin (Ecotrin) 81 mg PO DAILY [facility] Last Admin: 12/29/16 17:58 Dose: 81 mg Bisacodyl (Dulcolax) 10 mg [place] QD7 PRN PRN Reason: Constipation Last Admin: 12/27/16 21:50 Dose: 10 mg Clopidogrel Bisulfate (Plavix) 75 mg PO DAILY [facility] Last Admin: 12/29/16 10:00 Dose: Not Given Furosemide (Lasix) 40 mg IVP DAILY [facility] Last Admin: 12/29/16 18:39 Dose: 40 mg Piperacillin Sod/Tazobactam Sod (Zosyn 3.375 Gm Iv Premix) 3.375 gm in 50 mls @ 100 mls/hr IVPB Q8H [facility] Last Admin: 12/30/16 03:00 Dose: 100 mls/hr Lactated Ringer's (Lactated Ringer's) 1,000 mls @ 125 mls/hr IV .Q8H [facility] Last Admin: 12/29/16 18:35 Dose: 125 mls/hr Vancomycin HCl 1 gm/ Sodium (Chloride) 250 mls @ 166.7 mls/hr IVPB Q24H [facility] Last Admin: 12/29/16 21:39 Dose: 166.7 mls/hr Insulin Human Regular (Novolin R) 0 unit SC ACHS [facility] PRN Reason: Protocol Last Admin: 12/29/16 21:52 Dose: Not Given Losartan Potassium (Cozaar) 50 mg PO DAILY [facility] Last Admin: 12/29/16 10:16 Dose: Not Given Multivitamins (Hexavitamin) 1 tab PO DAILY [facility] Last Admin: 12/29/16 17:58 Dose: 1 tab Polyethylene Glycol (Miralax) 17 gm PO DAILY [facility] Last Admin: 12/29/16 17:57 Dose: 17 gm Potassium Chloride (K-Dur 20 Meq Er Tab) 20 meq PO DAILY [facility] Last Admin: 12/29/16 17:58 Dose: 20 meq Pregabalin (Lyrica) 75 mg PO DAILY [facility] Last Admin: 12/29/16 17:58 Dose: 75 mg Terazosin HCl (Hytrin) 1 mg PO HS [facility] Last Admin: 12/29/16 21:40 Dose: 1 mg - Labs Labs: 12/30/16 06:44 12/29/16 07:10 PT 12.1 SECONDS (9.7-12.2) 12/29/16 07:10 INR 1.1 12/29/16 07:10 APTT 33 SECONDS (21-34) 12/29/16 07:10 - Constitutional Appears: No Acute Distress - Head Exam Head Exam: ATRAUMATIC, NORMOCEPHALIC - Eye Exam Eye Exam: Normal appearance - ENT Exam ENT Exam: Mucous Membranes Moist - Respiratory Exam Respiratory Exam: NORMAL BREATHING PATTERN - Cardiovascular Exam Cardiovascular Exam: REGULAR RHYTHM - Extremities Exam Extremities Exam: Tenderness (very mild) Additional comments: RLE DP/PT found with doppler Dressing clean/dry/intact - Neurological Exam Neurological Exam: Alert, Awake - Psychiatric Exam Psychiatric exam: Normal Affect, Normal Mood - Skin Skin Exam: Dry, Intact, Normal Color, Warm Assessment and Plan - Assessment and Plan (Free Text) Plan: 71 M with PVD s/p aortofemoral angiogram, selctive catherization of right femoral artery, pathway atherectomy and balloon angioplasty of peroneal artery POD #1 -Monitor Pulses - RLE DP/PT identified with doppler -Pain control -Will DW Dr. Juan Márquez PGY1
[2016-12-30 08:02] LABS: POTASSIUM 4.5 mmol/L (3.6-5.2)
[2016-12-30] MEDS: (Novolin R) Insulin Human Regular 100 units/ml vial SC SCH ×3 (08:03→18:05)
[2016-12-30 08:05] LABS: ALB/GLOB RATIO 0.8 (1.0-2.1); BILIRUBIN,TOTAL 0.4 mg/dL (0.2-1.3); TOTAL PROTEIN 6.4 g/dL (6.3-8.3)
[2016-12-30 08:06] LABS: CALCIUM 8.6 mg/dl (8.6-10.4)
[2016-12-30] MEDS: POLYETHYLENE GLYCOL 3350 17 GM/Dose PACKET PO SCH (10:22)
[2016-12-30] MEDS: Multiple Vitamins Tab PO SCH (10:24)
[2016-12-30] MEDS: Potassium Chloride 20 mEq ER Tab PO SCH (10:25)
[2016-12-30] MEDS: Lactated Ringer's 1,000 ML IV SCH ×3 (10:26→23:45)
--- NOTE | 2016-12-30 11:39 | CP.PCM.PN ---
Subjective - Date & Time of Evaluation Date of Evaluation: 12/30/16 Time of Evaluation: 11:39 - Subjective Subjective: leg nice and warm Cr 1.6 monitor Objective - Vital Signs/Intake and Output Vital Signs (last 24 hours): Temp Pulse Resp BP Pulse Ox 97.7 F 102 H 20 138/82 97 12/30/16 08:30 12/30/16 08:30 12/30/16 08:30 12/30/16 10:23 12/30/16 08:30 Intake and Output: 12/30/16 12/30/16 06:59 18:59 Intake Total 1300 Balance 1300 - Medications Medications: Current Medications Acetaminophen (Tylenol 650mg/20.3ml Solution Ud) 650 mg PO Q6 PRN PRN Reason: Pain, moderate (4-7) Last Admin: 12/29/16 21:48 Dose: 650 mg Aspirin (Ecotrin) 81 mg PO DAILY [facility] Last Admin: 12/30/16 10:25 Dose: 81 mg Bisacodyl (Dulcolax) 10 mg ID QD7 PRN PRN Reason: Constipation Last Admin: 12/27/16 21:50 Dose: 10 mg Clopidogrel Bisulfate (Plavix) 75 mg PO DAILY [facility] Last Admin: 12/30/16 10:24 Dose: 75 mg Furosemide (Lasix) 40 mg IVP DAILY [facility] Last Admin: 12/30/16 10:23 Dose: 40 mg Piperacillin Sod/Tazobactam Sod (Zosyn 3.375 Gm Iv Premix) 3.375 gm in 50 mls @ 100 mls/hr IVPB Q8H [facility] Last Admin: 12/30/16 10:23 Dose: 100 mls/hr Lactated Ringer's (Lactated Ringer's) 1,000 mls @ 125 mls/hr IV .Q8H [facility] Last Admin: 12/30/16 10:26 Dose: Not Given Vancomycin HCl 1 gm/ Sodium (Chloride) 250 mls @ 166.7 mls/hr IVPB Q24H [facility] Last Admin: 12/29/16 21:39 Dose: 166.7 mls/hr Insulin Human Regular (Novolin R) 0 unit SC ACHS [facility] PRN Reason: Protocol Last Admin: 12/30/16 08:03 Dose: 1 unit Losartan Potassium (Cozaar) 50 mg PO DAILY [facility] Last Admin: 12/30/16 10:24 Dose: 50 mg Multivitamins (Hexavitamin) 1 tab PO DAILY [facility] Last Admin: 12/30/16 10:24 Dose: 1 tab Polyethylene Glycol (Miralax) 17 gm PO DAILY [facility] Last Admin: 12/30/16 10:22 Dose: 17 gm Potassium Chloride (K-Dur 20 Meq Er Tab) 20 meq PO DAILY [facility] Last Admin: 12/30/16 10:25 Dose: 20 meq Pregabalin (Lyrica) 75 mg PO DAILY [facility] Last Admin: 12/30/16 10:24 Dose: 75 mg Terazosin HCl (Hytrin) 1 mg PO HS [facility] Last Admin: 12/29/16 21:40 Dose: 1 mg - Labs Labs: 12/30/16 06:44 12/30/16 06:44 PT 12.1 SECONDS (9.7-12.2) 12/29/16 07:10 INR 1.1 12/29/16 07:10 APTT 33 SECONDS (21-34) 12/29/16 07:10
--- NOTE | 2016-12-30 15:34 | CP.PCM.PN ---
Subjective - Date & Time of Evaluation Date of Evaluation: 12/30/16 Time of Evaluation: 08:15 - Subjective Subjective: Podiatry progress note for Dr. Tariq 71 year old male was seen at bedside this morning for right great toe gangrene. Patient is resting comfortably in bed. Patient is in NAD and is AAOx3. Patient states that he has been having some back pain but denies of any acute overnight events. Dressing to right foot clean, dry and intact. Patient denies any pain in the toe or foot at this time. Denies F/C/N/V/SOB. Objective - Vital Signs/Intake and Output Vital Signs (last 24 hours): Temp Pulse Resp BP Pulse Ox 97.7 F 102 H 20 138/82 97 12/30/16 08:30 12/30/16 08:30 12/30/16 08:30 12/30/16 10:23 12/30/16 08:30 Intake and Output: 12/30/16 12/30/16 06:59 18:59 Intake Total 1300 Balance 1300 - Medications Medications: Current Medications Acetaminophen (Tylenol 650mg/20.3ml Solution Ud) 650 mg PO Q6 PRN PRN Reason: Pain, moderate (4-7) Last Admin: 12/29/16 21:48 Dose: 650 mg Aspirin (Ecotrin) 81 mg PO DAILY [facility] Last Admin: 12/30/16 10:25 Dose: 81 mg Bisacodyl (Dulcolax) 10 mg [place] QD7 PRN PRN Reason: Constipation Last Admin: 12/27/16 21:50 Dose: 10 mg Clopidogrel Bisulfate (Plavix) 75 mg PO DAILY [facility] Last Admin: 12/30/16 10:24 Dose: 75 mg Furosemide (Lasix) 40 mg IVP DAILY [facility] Last Admin: 12/30/16 10:23 Dose: 40 mg Piperacillin Sod/Tazobactam Sod (Zosyn 3.375 Gm Iv Premix) 3.375 gm in 50 mls @ 100 mls/hr IVPB Q8H [facility] Last Admin: 12/30/16 10:23 Dose: 100 mls/hr Lactated Ringer's (Lactated Ringer's) 1,000 mls @ 125 mls/hr IV .Q8H [facility] Last Admin: 12/30/16 10:26 Dose: Not Given Vancomycin HCl 1 gm/ Sodium (Chloride) 250 mls @ 166.7 mls/hr IVPB Q24H [facility] Last Admin: 12/29/16 21:39 Dose: 166.7 mls/hr Insulin Human Regular (Novolin R) 0 unit SC ACHS [facility] PRN Reason: Protocol Last Admin: 12/30/16 12:41 Dose: 4 unit Losartan Potassium (Cozaar) 50 mg PO DAILY [facility] Last Admin: 12/30/16 10:24 Dose: 50 mg Multivitamins (Hexavitamin) 1 tab PO DAILY [facility] Last Admin: 12/30/16 10:24 Dose: 1 tab Polyethylene Glycol (Miralax) 17 gm PO DAILY [facility] Last Admin: 12/30/16 10:22 Dose: 17 gm Potassium Chloride (K-Dur 20 Meq Er Tab) 20 meq PO DAILY [facility] Last Admin: 12/30/16 10:25 Dose: 20 meq Pregabalin (Lyrica) 75 mg PO DAILY [facility] Last Admin: 12/30/16 10:24 Dose: 75 mg Terazosin HCl (Hytrin) 1 mg PO HS [facility] Last Admin: 12/29/16 21:40 Dose: 1 mg - Labs Labs: 12/30/16 06:44 12/30/16 06:44 PT 12.1 SECONDS (9.7-12.2) 12/29/16 07:10 INR 1.1 12/29/16 07:10 APTT 33 SECONDS (21-34) 12/29/16 07:10 - Constitutional Appears: Well, Non-toxic, No Acute Distress - Extremities Exam Additional comments: Right lower extremity focused exam: Vasc: DP and PT pulses non-palpable due to +2 pitting edema perimalleolarly and dorsum of foot. Temperature gradient warm to warm from proximal to distal. Neuro: Protective sensation grossly diminished. Derm: Ulceration noted to the distal hallux with significant necrotic changes to distal tip of digit. The proximal aspect of the hallux is blanched. The distal tip is boggy, scant amount of serosanguinous drainage, no malodor noted. Ortho: Tenderness noted upon deep palpation of distal hallux. 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 Tariq Chart, labs, vitals reviewed - afebrile, WBC 11.1 MRI results reviewed: marrow edema in distal phalanx consistent with OM Right hallux dressed with DSD Vascular, Dr. Martinez consulted -Patient had aortofemoral angiogram, selctive catherization of right femoral artery, pathway atherectomy and balloon angioplasty of peroneal artery yesterday. GRANT/PVR pending Continue IV abx per primary Continue physical therapy Podiatry will continue to follow patient while in house
[2016-12-30] MEDS ORDERED: Bisacodyl 5mg EC Tab PO STA (16:22)
--- NOTE | 2016-12-30 16:27 | CP.PCM.PN ---
Subjective - Date & Time of Evaluation Date of Evaluation: 12/30/16 Time of Evaluation: 16:24 - Subjective Subjective: oob no distess Objective - Vital Signs/Intake and Output Vital Signs (last 24 hours): Temp Pulse Resp BP Pulse Ox 98.4 F 85 20 151/87 H 98 12/30/16 16:00 12/30/16 16:00 12/30/16 16:00 12/30/16 16:00 12/30/16 16:00 Intake and Output: 12/30/16 12/30/16 06:59 18:59 Intake Total 1300 Balance 1300 - Medications Medications: Current Medications Acetaminophen (Tylenol 650mg/20.3ml Solution Ud) 650 mg PO Q6 PRN PRN Reason: Pain, moderate (4-7) Last Admin: 12/29/16 21:48 Dose: 650 mg Aspirin (Ecotrin) 81 mg PO DAILY [facility] Last Admin: 12/30/16 10:25 Dose: 81 mg Bisacodyl (Dulcolax) 10 mg [place] QD7 PRN PRN Reason: Constipation Last Admin: 12/27/16 21:50 Dose: 10 mg Bisacodyl (Dulcolax) 10 mg PO ONCE [facility] Stop: 12/30/16 16:23 Clopidogrel Bisulfate (Plavix) 75 mg PO DAILY [facility] Last Admin: 12/30/16 10:24 Dose: 75 mg Furosemide (Lasix) 40 mg IVP DAILY [facility] Last Admin: 12/30/16 10:23 Dose: 40 mg Piperacillin Sod/Tazobactam Sod (Zosyn 3.375 Gm Iv Premix) 3.375 gm in 50 mls @ 100 mls/hr IVPB Q8H [facility] Last Admin: 12/30/16 10:23 Dose: 100 mls/hr Lactated Ringer's (Lactated Ringer's) 1,000 mls @ 125 mls/hr IV .Q8H [facility] Last Admin: 12/30/16 10:26 Dose: Not Given Vancomycin HCl 1 gm/ Sodium (Chloride) 250 mls @ 166.7 mls/hr IVPB Q24H [facility] Last Admin: 12/29/16 21:39 Dose: 166.7 mls/hr Insulin Human Regular (Novolin R) 0 unit SC ACHS [facility] PRN Reason: Protocol Last Admin: 12/30/16 12:41 Dose: 4 unit Losartan Potassium (Cozaar) 50 mg PO DAILY [facility] Last Admin: 12/30/16 10:24 Dose: 50 mg Multivitamins (Hexavitamin) 1 tab PO DAILY [facility] Last Admin: 12/30/16 10:24 Dose: 1 tab Polyethylene Glycol (Miralax) 17 gm PO DAILY [facility] Last Admin: 12/30/16 10:22 Dose: 17 gm Potassium Chloride (K-Dur 20 Meq Er Tab) 20 meq PO DAILY [facility] Last Admin: 12/30/16 10:25 Dose: 20 meq Pregabalin (Lyrica) 75 mg PO DAILY [facility] Last Admin: 12/30/16 10:24 Dose: 75 mg Terazosin HCl (Hytrin) 1 mg PO HS [facility] Last Admin: 12/29/16 21:40 Dose: 1 mg - Labs Labs: 12/30/16 06:44 12/30/16 06:44 PT 12.1 SECONDS (9.7-12.2) 12/29/16 07:10 INR 1.1 12/29/16 07:10 APTT 33 SECONDS (21-34) 12/29/16 07:10 - Constitutional Appears: Non-toxic - Head Exam Head Exam: NORMAL INSPECTION - Eye Exam Eye Exam: Normal appearance Pupil Exam: NORMAL ACCOMODATION - ENT Exam ENT Exam: Mucous Membranes Moist - Neck Exam Neck Exam: Normal Inspection - Respiratory Exam Respiratory Exam: Clear to Ausculation Bilateral - Cardiovascular Exam Cardiovascular Exam: REGULAR RHYTHM - GI/Abdominal Exam GI & Abdominal Exam: Normal Bowel Sounds - Rectal Exam Rectal Exam: NORMAL INSPECTION - Exam Exam: NORMAL INSPECTION - Extremities Exam Extremities Exam: Pedal Edema, Tenderness Additional comments: gangrenous ulcer - Neurological Exam Neurological Exam: Alert, Normal Gait, Oriented x3 - Psychiatric Exam Psychiatric exam: Normal Affect - Skin Skin Exam: Normal Color Assessment and Plan - Assessment and Plan (Free Text) Assessment: gangrenous ulcer osteomilitis atherosclerosis of blood vessels loerr ext dm abd gas Plan: as per orders
[2016-12-31] MEDS: Lactated Ringer's 1,000 ML IV SCH ×4 (03:00→21:14)
[2016-12-31] MEDS: Piperacill/Tazo 3.375gm in Dex 3.375 GM/50 ML BAG IVPB SCH ×3 (03:15→18:11)
[2016-12-31 08:01] LABS: POTASSIUM 4.4 mmol/L (3.6-5.2)
[2016-12-31] MEDS: (Novolin R) Insulin Human Regular 100 units/ml vial SC SCH ×5 (08:02→22:34)
[2016-12-31 08:03] LABS: ALB/GLOB RATIO 0.8 (1.0-2.1); BILIRUBIN,TOTAL 0.5 mg/dL (0.2-1.3); CALCIUM 9.2 mg/dl (8.6-10.4); TOTAL PROTEIN 7.1 g/dL (6.3-8.3)
[2016-12-31] MEDS: Multiple Vitamins Tab PO SCH (10:19)
[2016-12-31] MEDS: POLYETHYLENE GLYCOL 3350 17 GM/Dose PACKET PO SCH (10:19)
[2016-12-31] MEDS: Potassium Chloride 20 mEq ER Tab PO SCH (10:19)
--- NOTE | 2016-12-31 10:32 | CP.PCM.PN ---
Subjective - Date & Time of Evaluation Date of Evaluation: 12/31/16 Time of Evaluation: 08:05 - Subjective Subjective: SURGERY NOTE FOR DR. VENCES Patient was seen and examined at bedside. Sitting up in chair comfortably in NAD. Denies any issues overnight. This morning, patient states he feels much improved, as most of his pain to the right lower extremity has resolved. He currently denies signs of CP, SOB, abdominal pain, n/v/d, fever or chills. No other complaints are noted. Objective - Vital Signs/Intake and Output Vital Signs (last 24 hours): Temp Pulse Resp BP Pulse Ox 98.3 F 87 20 161/82 H 97 12/31/16 07:00 12/31/16 07:00 12/31/16 07:00 12/31/16 07:00 12/31/16 07:00 Intake and Output: 12/31/16 12/31/16 06:59 18:59 Intake Total 2550 Output Total 1000 Balance 1550 - Medications Medications: Current Medications Acetaminophen (Tylenol 650mg/20.3ml Solution Ud) 650 mg PO Q6 PRN PRN Reason: Pain, moderate (4-7) Last Admin: 12/29/16 21:48 Dose: 650 mg Aspirin (Ecotrin) 81 mg PO DAILY [facility] Last Admin: 12/30/16 10:25 Dose: 81 mg Bisacodyl (Dulcolax) 10 mg [place] QD7 PRN PRN Reason: Constipation Last Admin: 12/27/16 21:50 Dose: 10 mg Clopidogrel Bisulfate (Plavix) 75 mg PO DAILY [facility] Last Admin: 12/30/16 10:24 Dose: 75 mg Furosemide (Lasix) 40 mg IVP DAILY [facility] Last Admin: 12/30/16 10:23 Dose: 40 mg Piperacillin Sod/Tazobactam Sod (Zosyn 3.375 Gm Iv Premix) 3.375 gm in 50 mls @ 100 mls/hr IVPB Q8H [facility] Last Admin: 12/31/16 03:15 Dose: 100 mls/hr Lactated Ringer's (Lactated Ringer's) 1,000 mls @ 125 mls/hr IV .Q8H [facility] Last Admin: 12/31/16 03:00 Dose: 125 mls/hr Vancomycin HCl 1 gm/ Sodium (Chloride) 250 mls @ 166.7 mls/hr IVPB Q24H [facility] Last Admin: 12/30/16 21:43 Dose: 166.7 mls/hr Insulin Human Regular (Novolin R) 0 unit SC ACHS [facility] PRN Reason: Protocol Last Admin: 12/31/16 08:02 Dose: 2 unit Losartan Potassium (Cozaar) 50 mg PO DAILY [facility] Last Admin: 12/30/16 10:24 Dose: 50 mg Multivitamins (Hexavitamin) 1 tab PO DAILY [facility] Last Admin: 12/30/16 10:24 Dose: 1 tab Polyethylene Glycol (Miralax) 17 gm PO DAILY [facility] Last Admin: 12/30/16 10:22 Dose: 17 gm Potassium Chloride (K-Dur 20 Meq Er Tab) 20 meq PO DAILY [facility] Last Admin: 12/30/16 10:25 Dose: 20 meq Pregabalin (Lyrica) 75 mg PO DAILY [facility] Last Admin: 12/30/16 10:24 Dose: 75 mg Terazosin HCl (Hytrin) 1 mg PO HS [facility] Last Admin: 12/30/16 21:45 Dose: 1 mg - Labs Labs: 12/30/16 06:44 12/31/16 06:45 PT 12.1 SECONDS (9.7-12.2) 12/29/16 07:10 INR 1.1 12/29/16 07:10 APTT 33 SECONDS (21-34) 12/29/16 07:10 - Constitutional Appears: Non-toxic, No Acute Distress - Respiratory Exam Respiratory Exam: Clear to Ausculation Bilateral, NORMAL BREATHING PATTERN - Cardiovascular Exam Cardiovascular Exam: REGULAR RHYTHM, +S1, +S2 - Extremities Exam Additional comments: Positive doppler signals in lower extremity bilaterally - Neurological Exam Neurological Exam: Alert, Awake - Skin Skin Exam: Dry, Intact, Normal Color, Warm Assessment and Plan - Assessment and Plan (Free Text) Assessment: 71 yo F who is POD#2 from right peripheral atherectomy and balloon angioplasty for severe PVD Plan: - continue vascular checks - right toe dressing changes further recs discuss with Dr. Juan Marrufo, PGY2
[2016-12-31] MEDS ORDERED: Insulin Detemir 100 units/ml Vial (Levemir) SC SCH (13:00)
--- NOTE | 2016-12-31 13:02 | CP.PCM.PN ---
Subjective - Date & Time of Evaluation Date of Evaluation: 12/31/16 Time of Evaluation: 12:59 - Subjective Subjective: anexious to go home to run his besiness feels ok has osteo infection gangrenous toe bs hi Objective - Vital Signs/Intake and Output Vital Signs (last 24 hours): Temp Pulse Resp BP Pulse Ox 98.3 F 87 20 161/82 H 97 12/31/16 07:00 12/31/16 07:00 12/31/16 07:00 12/31/16 10:18 12/31/16 07:00 Intake and Output: 12/31/16 12/31/16 06:59 18:59 Intake Total 2550 Output Total 1000 Balance 1550 - Medications Medications: Current Medications Acetaminophen (Tylenol 650mg/20.3ml Solution Ud) 650 mg PO Q6 PRN PRN Reason: Pain, moderate (4-7) Last Admin: 12/29/16 21:48 Dose: 650 mg Aspirin (Ecotrin) 81 mg PO DAILY [facility] Last Admin: 12/31/16 10:19 Dose: 81 mg Bisacodyl (Dulcolax) 10 mg ID QD7 PRN PRN Reason: Constipation Last Admin: 12/27/16 21:50 Dose: 10 mg Clopidogrel Bisulfate (Plavix) 75 mg PO DAILY [facility] Last Admin: 12/31/16 10:19 Dose: 75 mg Furosemide (Lasix) 40 mg IVP DAILY [facility] Last Admin: 12/31/16 10:18 Dose: 40 mg Piperacillin Sod/Tazobactam Sod (Zosyn 3.375 Gm Iv Premix) 3.375 gm in 50 mls @ 100 mls/hr IVPB Q8H [facility] Last Admin: 12/31/16 12:13 Dose: 100 mls/hr Lactated Ringer's (Lactated Ringer's) 1,000 mls @ 125 mls/hr IV .Q8H [facility] Last Admin: 12/31/16 12:18 Dose: 125 mls/hr Vancomycin HCl 1 gm/ Sodium (Chloride) 250 mls @ 166.7 mls/hr IVPB Q24H [facility] Last Admin: 12/30/16 21:43 Dose: 166.7 mls/hr Insulin Detemir (Levemir) 14 unit SC DIAL [facility] Insulin Human Regular (Novolin R) 0 unit SC ACHS [facility] PRN Reason: Protocol Last Admin: 12/31/16 12:14 Dose: 4 unit Losartan Potassium (Cozaar) 50 mg PO DAILY [facility] Last Admin: 12/31/16 10:18 Dose: 50 mg Multivitamins (Hexavitamin) 1 tab PO DAILY [facility] Last Admin: 12/31/16 10:19 Dose: 1 tab Polyethylene Glycol (Miralax) 17 gm PO DAILY [facility] Last Admin: 12/31/16 10:19 Dose: 17 gm Potassium Chloride (K-Dur 20 Meq Er Tab) 20 meq PO DAILY [facility] Last Admin: 12/31/16 10:19 Dose: 20 meq Pregabalin (Lyrica) 75 mg PO DAILY [facility] Last Admin: 12/31/16 10:18 Dose: 75 mg Terazosin HCl (Hytrin) 1 mg PO HS [facility] Last Admin: 12/30/16 21:45 Dose: 1 mg - Labs Labs: 12/30/16 06:44 12/31/16 06:45 PT 12.1 SECONDS (9.7-12.2) 12/29/16 07:10 INR 1.1 12/29/16 07:10 APTT 33 SECONDS (21-34) 12/29/16 07:10 - Constitutional Appears: Non-toxic - Head Exam Head Exam: NORMAL INSPECTION - ENT Exam ENT Exam: Mucous Membranes Moist - Neck Exam Neck Exam: Normal Inspection - Respiratory Exam Respiratory Exam: NORMAL BREATHING PATTERN - Cardiovascular Exam Cardiovascular Exam: REGULAR RHYTHM - GI/Abdominal Exam GI & Abdominal Exam: Normal Bowel Sounds - Exam Exam: NORMAL INSPECTION - Extremities Exam Extremities Exam: Full ROM - Back Exam Back Exam: NORMAL INSPECTION - Neurological Exam Neurological Exam: Awake, Oriented x3 - Skin Skin Exam: Normal Color Assessment and Plan - Assessment and Plan (Free Text) Assessment: dmid uncontroled osteomilitis gangreous ulcer toe Plan: will inc insulin will discuss with dr colon in an
--- NOTE | 2016-12-31 16:10 | CP.PCM.PN ---
Subjective - Date & Time of Evaluation Date of Evaluation: 12/31/16 Time of Evaluation: 09:00 - Subjective Subjective: improved pvd cultures neg thus far cont iv antibiotics to discuss with dr tilley Objective - Vital Signs/Intake and Output Vital Signs (last 24 hours): Temp Pulse Resp BP Pulse Ox 98.3 F 87 20 161/82 H 97 12/31/16 07:00 12/31/16 07:00 12/31/16 07:00 12/31/16 10:18 12/31/16 07:00 Intake and Output: 12/31/16 12/31/16 06:59 18:59 Intake Total 2550 1475 Output Total 1000 Balance 1550 1475 - Medications Medications: Current Medications Acetaminophen (Tylenol 650mg/20.3ml Solution Ud) 650 mg PO Q6 PRN PRN Reason: Pain, moderate (4-7) Last Admin: 12/29/16 21:48 Dose: 650 mg Aspirin (Ecotrin) 81 mg PO DAILY [facility] Last Admin: 12/31/16 10:19 Dose: 81 mg Bisacodyl (Dulcolax) 10 mg [place] QD7 PRN PRN Reason: Constipation Last Admin: 12/27/16 21:50 Dose: 10 mg Clopidogrel Bisulfate (Plavix) 75 mg PO DAILY [facility] Last Admin: 12/31/16 10:19 Dose: 75 mg Furosemide (Lasix) 40 mg IVP DAILY [facility] Last Admin: 12/31/16 10:18 Dose: 40 mg Piperacillin Sod/Tazobactam Sod (Zosyn 3.375 Gm Iv Premix) 3.375 gm in 50 mls @ 100 mls/hr IVPB Q8H [facility] Last Admin: 12/31/16 12:13 Dose: 100 mls/hr Lactated Ringer's (Lactated Ringer's) 1,000 mls @ 125 mls/hr IV .Q8H [facility] Last Admin: 12/31/16 12:18 Dose: 125 mls/hr Vancomycin HCl 1 gm/ Sodium (Chloride) 250 mls @ 166.7 mls/hr IVPB Q24H [facility] Last Admin: 12/30/16 21:43 Dose: 166.7 mls/hr Insulin Detemir (Levemir) 14 unit SC HS [facility] Last Admin: 12/31/16 13:36 Dose: 14 unit Insulin Human Regular (Novolin R) 0 unit SC ACHS [facility] PRN Reason: Protocol Last Admin: 12/31/16 12:14 Dose: 4 unit Losartan Potassium (Cozaar) 50 mg PO DAILY [facility] Last Admin: 12/31/16 10:18 Dose: 50 mg Multivitamins (Hexavitamin) 1 tab PO DAILY [facility] Last Admin: 12/31/16 10:19 Dose: 1 tab Polyethylene Glycol (Miralax) 17 gm PO DAILY [facility] Last Admin: 12/31/16 10:19 Dose: 17 gm Potassium Chloride (K-Dur 20 Meq Er Tab) 20 meq PO DAILY [facility] Last Admin: 12/31/16 10:19 Dose: 20 meq Pregabalin (Lyrica) 75 mg PO DAILY [facility] Last Admin: 12/31/16 10:18 Dose: 75 mg Repaglinide (Prandin) 1 mg PO TIDAC [facility] Terazosin HCl (Hytrin) 1 mg PO HS [facility] Last Admin: 12/30/16 21:45 Dose: 1 mg - Labs Labs: 12/30/16 06:44 12/31/16 06:45 PT 12.1 SECONDS (9.7-12.2) 12/29/16 07:10 INR 1.1 12/29/16 07:10 APTT 33 SECONDS (21-34) 12/29/16 07:10 - Constitutional Appears: Non-toxic, Chronically Ill - Head Exam Head Exam: NORMOCEPHALIC - Eye Exam Eye Exam: PERRL. absent: Scleral icterus - ENT Exam ENT Exam: Mucous Membranes Dry - Respiratory Exam Respiratory Exam: Clear to Ausculation Bilateral - Cardiovascular Exam Cardiovascular Exam: REGULAR RHYTHM - GI/Abdominal Exam GI & Abdominal Exam: Distended, Soft - Rectal Exam Rectal Exam: Deferred - Exam Exam: NORMAL INSPECTION - Extremities Exam Extremities Exam: Pedal Edema, Tenderness - Back Exam Back Exam: absent: CVA tenderness (L), CVA tenderness (R) Assessment and Plan - Assessment and Plan (Free Text) Assessment: OM right great toe- possible amputation vs 6-8 wk iv rx
--- NOTE | 2016-12-31 17:17 | CP.PCM.PN ---
Subjective - Date & Time of Evaluation Date of Evaluation: 12/31/16 Time of Evaluation: 08:00 - Subjective Subjective: Podiatry progress note for Dr. Tariq 71 year old male was seen at bedside this morning for right great toe gangrene. Patient is resting comfortably in bed. Patient is in NAD and is AAOx3. Patient states denies of any acute overnight events. Dressing to right foot clean, dry and intact. Patient denies any pain in the toe or foot at this time. Denies F/C/ N/V/SOB. Objective - Vital Signs/Intake and Output Vital Signs (last 24 hours): Temp Pulse Resp BP Pulse Ox 98.4 F 82 20 167/94 H 98 12/31/16 16:11 12/31/16 16:11 12/31/16 16:11 12/31/16 16:11 12/31/16 16:11 Intake and Output: 12/31/16 12/31/16 06:59 18:59 Intake Total 2550 1475 Output Total 1000 Balance 1550 1475 - Medications Medications: Current Medications Acetaminophen (Tylenol 650mg/20.3ml Solution Ud) 650 mg PO Q6 PRN PRN Reason: Pain, moderate (4-7) Last Admin: 12/29/16 21:48 Dose: 650 mg Aspirin (Ecotrin) 81 mg PO DAILY [facility] Last Admin: 12/31/16 10:19 Dose: 81 mg Bisacodyl (Dulcolax) 10 mg [place] QD7 PRN PRN Reason: Constipation Last Admin: 12/27/16 21:50 Dose: 10 mg Clopidogrel Bisulfate (Plavix) 75 mg PO DAILY [facility] Last Admin: 12/31/16 10:19 Dose: 75 mg Furosemide (Lasix) 40 mg IVP DAILY [facility] Last Admin: 12/31/16 10:18 Dose: 40 mg Piperacillin Sod/Tazobactam Sod (Zosyn 3.375 Gm Iv Premix) 3.375 gm in 50 mls @ 100 mls/hr IVPB Q8H [facility] Last Admin: 12/31/16 12:13 Dose: 100 mls/hr Lactated Ringer's (Lactated Ringer's) 1,000 mls @ 125 mls/hr IV .Q8H [facility] Last Admin: 12/31/16 12:18 Dose: 125 mls/hr Vancomycin HCl 1 gm/ Sodium (Chloride) 250 mls @ 166.7 mls/hr IVPB Q24H [facility] Last Admin: 12/30/16 21:43 Dose: 166.7 mls/hr Insulin Detemir (Levemir) 14 unit SC HS [facility] Last Admin: 12/31/16 13:36 Dose: 14 unit Insulin Human Regular (Novolin R) 0 unit SC ACHS [facility] PRN Reason: Protocol Last Admin: 12/31/16 12:14 Dose: 4 unit Losartan Potassium (Cozaar) 50 mg PO DAILY [facility] Last Admin: 12/31/16 10:18 Dose: 50 mg Multivitamins (Hexavitamin) 1 tab PO DAILY [facility] Last Admin: 12/31/16 10:19 Dose: 1 tab Polyethylene Glycol (Miralax) 17 gm PO DAILY [facility] Last Admin: 12/31/16 10:19 Dose: 17 gm Potassium Chloride (K-Dur 20 Meq Er Tab) 20 meq PO DAILY [facility] Last Admin: 12/31/16 10:19 Dose: 20 meq Pregabalin (Lyrica) 75 mg PO DAILY [facility] Last Admin: 12/31/16 10:18 Dose: 75 mg Repaglinide (Prandin) 1 mg PO TIDAC [facility] Terazosin HCl (Hytrin) 1 mg PO HS [facility] Last Admin: 12/30/16 21:45 Dose: 1 mg - Labs Labs: 12/30/16 06:44 12/31/16 06:45 PT 12.1 SECONDS (9.7-12.2) 12/29/16 07:10 INR 1.1 12/29/16 07:10 APTT 33 SECONDS (21-34) 12/29/16 07:10 - Constitutional Appears: Well, Non-toxic, No Acute Distress - Extremities Exam Additional comments: Right lower extremity focused exam: Vasc: DP and PT pulses non-palpable due to +2 pitting edema perimalleolarly and dorsum of foot. Temperature gradient warm to warm from proximal to distal. Derm: Ulceration noted to the distal hallux with significant necrotic changes to distal tip of digit. The proximal aspect of the hallux is blanched. The distal tip is boggy, scant amount of serosanguinous drainage, no malodor noted. Neuro: Protective sensation grossly diminished. Ortho: Tenderness noted upon deep palpation of distal hallux. 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 Tariq Chart, labs, vitals reviewed - afebrile, WBC 11.1 MRI results reviewed: marrow edema in distal phalanx consistent with OM Right hallux dressed with DSD Vascular, Dr. Martinez consulted -Patient had aortofemoral angiogram, selctive catherization of right femoral artery, pathway atherectomy and balloon angioplasty of peroneal artery GRANT/PVR pending Continue IV abx per ID - As per Dr. Morrow, possible IV abx for 6-8 weeks vs. amputation as treatment Continue physical therapy Podiatry will continue to follow patient while in house
[2017-01-01] MEDS: Lactated Ringer's 1,000 ML IV SCH (01:41)
[2017-01-01] MEDS: Piperacill/Tazo 3.375gm in Dex 3.375 GM/50 ML BAG IVPB SCH ×2 (01:42→11:09)
[2017-01-01] MEDS: (Novolin R) Insulin Human Regular 100 units/ml vial SC SCH ×3 (08:05→17:52)
[2017-01-01 08:29] VITALS: O2SAT 98
--- NOTE | 2017-01-01 09:37 | VASCLAB ---
STUDY DESCRIPTION: HISTORY: assess blood flow to LE PRIORS: None. TECHNIQUE: Pulse volume recording waveforms and segmental pressures of bilateral lower extremities at multiple levels were obtained. Ankle Brachial Indices (ABIs) were calculated. Report prepared by NITISH Vázquez, RVT RIGHT LOWER EXTREMITY: * Brachial artery: Pressure - 192 mmHg. * High thigh: Pressure - mmHg: Ratio - : PVR waveform - Pulsatile * Low thigh: Pressure - mmHg: Ratio - PVR waveform: Pulsatile * Calf: Pressure - 196 mmHg: Ratio - 1.02 PVR waveform: Pulsatile * Posterior tibial Artery: Pressure - 220 mmHg: Ratio - NC PVR waveform: Pulsatile * Dorsalis pedis Artery: Pressure - 203 mmHg: Ratio - 1.06 PVR waveform: Pulsatile * Great toe: Pressure - mmHg: Ratio - PVR waveform: Ankle brachial index (GRANT): NC LEFT LOWER EXTREMITY: * Brachial artery: Pressure - 178 mmHg. * High thigh: Pressure - mmHg: Ratio - : PVR waveform - Pulsatile * Low thigh: Pressure - mmHg: Ratio - PVR waveform: Pulsatile * Calf: Pressure - 220 mmHg: Ratio - NC PVR waveform: Pulsatile * Posterior tibial Artery: Pressure - 220 mmHg: Ratio - NC PVR waveform: Pulsatile * Dorsalis pedis Artery: Pressure - 180 mmHg: Ratio - 0.94 PVR waveform: Pulsatile * Great toe: Pressure - mmHg: Ratio - PVR waveform: Pulsatile Ankle brachial index (GRANT): 0.94 OTHER FINDINGS: Right: Left: IMPRESSION: Right: The ankle pressure index of the right lower extremity is non-diagnostic due to possible arterial wall calcifications. Left: The ankle pressure index of the left lower extremity is non-diagnostic due to possible arterial wall calcifications.
[2017-01-01] MEDS: Potassium Chloride 20 mEq ER Tab PO SCH (11:07)
[2017-01-01] MEDS: POLYETHYLENE GLYCOL 3350 17 GM/Dose PACKET PO SCH (11:08)
[2017-01-01] MEDS: Multiple Vitamins Tab PO SCH (11:08)
--- NOTE | 2017-01-01 16:00 | CP.PCM.PN ---
Subjective - Date & Time of Evaluation Date of Evaluation: 01/01/17 Time of Evaluation: 15:57 - Subjective Subjective: Podiatry consult note for Dr. Tariq 71 year old male was seen at bedside this morning accompanied by his for right great toe OM. He currently denies any pain to the right hallux. Dressing c/d/i to RLE. Denies n/v/f/c/sob/cp. Objective - Vital Signs/Intake and Output Vital Signs (last 24 hours): Temp Pulse Resp BP Pulse Ox 98.3 F 73 20 151/80 H 98 01/01/17 07:00 01/01/17 11:51 01/01/17 07:00 01/01/17 11:08 01/01/17 07:00 Intake and Output: 01/01/17 01/01/17 06:59 18:59 Intake Total 2265 Balance 2265 - Medications Medications: Current Medications Acetaminophen (Tylenol 650mg/20.3ml Solution Ud) 650 mg PO Q6 PRN PRN Reason: Pain, moderate (4-7) Last Admin: 12/29/16 21:48 Dose: 650 mg Aspirin (Ecotrin) 81 mg PO DAILY [facility] Last Admin: 01/01/17 11:07 Dose: 81 mg Bisacodyl (Dulcolax) 10 mg [place] QD7 PRN PRN Reason: Constipation Last Admin: 12/27/16 21:50 Dose: 10 mg Clopidogrel Bisulfate (Plavix) 75 mg PO DAILY [facility] Last Admin: 01/01/17 11:07 Dose: 75 mg Furosemide (Lasix) 40 mg IVP DAILY [facility] Last Admin: 01/01/17 11:08 Dose: 40 mg Piperacillin Sod/Tazobactam Sod (Zosyn 3.375 Gm Iv Premix) 3.375 gm in 50 mls @ 100 mls/hr IVPB Q8H [facility] Last Admin: 01/01/17 11:09 Dose: 100 mls/hr Vancomycin HCl 1 gm/ Sodium (Chloride) 250 mls @ 166.7 mls/hr IVPB 1600 [facility] Insulin Detemir (Levemir) 14 unit SC HS [facility] Last Admin: 12/31/16 13:36 Dose: 14 unit Insulin Human Regular (Novolin R) 0 unit SC ACHS [facility] PRN Reason: Protocol Last Admin: 01/01/17 12:57 Dose: 2 unit Losartan Potassium (Cozaar) 50 mg PO DAILY [facility] Last Admin: 01/01/17 11:08 Dose: 50 mg Multivitamins (Hexavitamin) 1 tab PO DAILY [facility] Last Admin: 01/01/17 11:08 Dose: 1 tab Polyethylene Glycol (Miralax) 17 gm PO DAILY [facility] Last Admin: 01/01/17 11:08 Dose: 17 gm Potassium Chloride (K-Dur 20 Meq Er Tab) 20 meq PO DAILY [facility] Last Admin: 01/01/17 11:07 Dose: 20 meq Pregabalin (Lyrica) 75 mg PO DAILY [facility] Last Admin: 01/01/17 11:07 Dose: 75 mg Repaglinide (Prandin) 1 mg PO TIDAC [facility] Last Admin: 01/01/17 12:59 Dose: 1 mg Terazosin HCl (Hytrin) 1 mg PO HS [facility] Last Admin: 12/31/16 21:11 Dose: 1 mg - Labs Labs: 12/30/16 06:44 12/31/16 06:45 PT 12.1 SECONDS (9.7-12.2) 12/29/16 07:10 INR 1.1 12/29/16 07:10 APTT 33 SECONDS (21-34) 12/29/16 07:10 - Constitutional Appears: Non-toxic, No Acute Distress - Extremities Exam Additional comments: lower extremity focused exam: Vasc: DP and PT pulses non-palpable b/l. Pulses monophasic upon doppler exam b/ l. Skin temperature warm to warm from proximal to distal b/l. Neuro: Gross sensation diminished b/l Derm: Ulceration noted to the right distal hallux with a necrotic tip, the proximal portion of the hallux is blanched. The distal tip is boggy, scant amount of drainage, no malodor noted. Ortho: No tenderness on palpation to right hallux - Neurological Exam Neurological Exam: Alert, Awake, Oriented x3 - Psychiatric Exam Psychiatric exam: Normal Affect, Normal Mood Assessment and Plan - Assessment and Plan (Free Text) Assessment: 71 year old male with right hallux gangrene/ OM Plan: Patient examined and evaluated Discussed plan in detail with attending, Dr. Tariq Chart, labs, vitals reviewed MRI results reviewed: marrow edema in distal phalanx consistent with OM Right hallux dressed with DSD daily dressing changes Continue IV abx per ID Continue physical therapy Patient to follow up with Dr. Tariq in office upon D/C Podiatry will continue to follow patient while in house
[2017-01-01 16:30] VITALS: BP 166/90; PULSE 83; TEMP 97.9
--- NOTE | 2017-01-01 16:53 | CP.PCM.PN ---
Subjective - Date & Time of Evaluation Date of Evaluation: 01/01/17 Time of Evaluation: 16:53 - Subjective Subjective: Alert, awake, follows commands. Objective - Vital Signs/Intake and Output Vital Signs (last 24 hours): Temp Pulse Resp BP Pulse Ox 97.9 F 83 20 166/90 H 98 01/01/17 16:00 01/01/17 16:00 01/01/17 16:00 01/01/17 16:00 01/01/17 16:00 Intake and Output: 01/01/17 01/01/17 06:59 18:59 Intake Total 2265 Balance 2265 - Medications Medications: Current Medications Acetaminophen (Tylenol 650mg/20.3ml Solution Ud) 650 mg PO Q6 PRN PRN Reason: Pain, moderate (4-7) Last Admin: 12/29/16 21:48 Dose: 650 mg Aspirin (Ecotrin) 81 mg PO DAILY [facility] Last Admin: 01/01/17 11:07 Dose: 81 mg Bisacodyl (Dulcolax) 10 mg [place] QD7 PRN PRN Reason: Constipation Last Admin: 12/27/16 21:50 Dose: 10 mg Clopidogrel Bisulfate (Plavix) 75 mg PO DAILY [facility] Last Admin: 01/01/17 11:07 Dose: 75 mg Furosemide (Lasix) 40 mg IVP DAILY [facility] Last Admin: 01/01/17 11:08 Dose: 40 mg Piperacillin Sod/Tazobactam Sod (Zosyn 3.375 Gm Iv Premix) 3.375 gm in 50 mls @ 100 mls/hr IVPB Q8H [facility] Last Admin: 01/01/17 11:09 Dose: 100 mls/hr Vancomycin HCl 1 gm/ Sodium (Chloride) 250 mls @ 166.7 mls/hr IVPB 1600 [facility] Insulin Detemir (Levemir) 14 unit SC HS [facility] Last Admin: 12/31/16 13:36 Dose: 14 unit Insulin Human Regular (Novolin R) 0 unit SC ACHS [facility] PRN Reason: Protocol Last Admin: 01/01/17 12:57 Dose: 2 unit Losartan Potassium (Cozaar) 50 mg PO DAILY [facility] Last Admin: 01/01/17 11:08 Dose: 50 mg Multivitamins (Hexavitamin) 1 tab PO DAILY [facility] Last Admin: 01/01/17 11:08 Dose: 1 tab Polyethylene Glycol (Miralax) 17 gm PO DAILY [facility] Last Admin: 01/01/17 11:08 Dose: 17 gm Potassium Chloride (K-Dur 20 Meq Er Tab) 20 meq PO DAILY [facility] Last Admin: 01/01/17 11:07 Dose: 20 meq Pregabalin (Lyrica) 75 mg PO DAILY [facility] Last Admin: 01/01/17 11:07 Dose: 75 mg Repaglinide (Prandin) 1 mg PO TIDAC [facility] Last Admin: 01/01/17 12:59 Dose: 1 mg Terazosin HCl (Hytrin) 1 mg PO HS [facility] Last Admin: 12/31/16 21:11 Dose: 1 mg - Labs Labs: 12/30/16 06:44 12/31/16 06:45 PT 12.1 SECONDS (9.7-12.2) 12/29/16 07:10 INR 1.1 12/29/16 07:10 APTT 33 SECONDS (21-34) 12/29/16 07:10 Assessment and Plan - Assessment and Plan (Free Text) Assessment: Resident with right great toe osteomyelitis. Alert, follows commands , no sob or chest pains. As per DR Morrow he is for 6 weeks of iv abx. Cleared by DR Frazier, Podiatry will f/u as outpatient for possible toe amputation. Discharged home as per DR Fisher since patient refused rehab. Outpatient infusion arranged as per patient and family request.Advised to follow up with DR Koehler for further management.
--- NOTE | 2017-01-01 17:59 | CP.PCM.PN ---
Subjective - Date & Time of Evaluation Date of Evaluation: 01/01/17 Time of Evaluation: 17:57 - Subjective Subjective: pt oob comfortable anxious to go home arrangement don for home iv antibiotics Objective - Vital Signs/Intake and Output Vital Signs (last 24 hours): Temp Pulse Resp BP Pulse Ox 97.9 F 83 20 166/90 H 98 01/01/17 16:00 01/01/17 16:00 01/01/17 16:00 01/01/17 16:00 01/01/17 16:00 Intake and Output: 01/01/17 01/01/17 06:59 18:59 Intake Total 2265 Balance 2265 - Medications Medications: Current Medications Acetaminophen (Tylenol 650mg/20.3ml Solution Ud) 650 mg PO Q6 PRN PRN Reason: Pain, moderate (4-7) Last Admin: 12/29/16 21:48 Dose: 650 mg Aspirin (Ecotrin) 81 mg PO DAILY [facility] Last Admin: 01/01/17 11:07 Dose: 81 mg Bisacodyl (Dulcolax) 10 mg [place] QD7 PRN PRN Reason: Constipation Last Admin: 12/27/16 21:50 Dose: 10 mg Clopidogrel Bisulfate (Plavix) 75 mg PO DAILY [facility] Last Admin: 01/01/17 11:07 Dose: 75 mg Furosemide (Lasix) 40 mg IVP DAILY [facility] Last Admin: 01/01/17 11:08 Dose: 40 mg Piperacillin Sod/Tazobactam Sod (Zosyn 3.375 Gm Iv Premix) 3.375 gm in 50 mls @ 100 mls/hr IVPB Q8H [facility] Last Admin: 01/01/17 11:09 Dose: 100 mls/hr Vancomycin HCl 1 gm/ Sodium (Chloride) 250 mls @ 166.7 mls/hr IVPB 1600 [facility] Last Admin: 01/01/17 17:52 Dose: 166.7 mls/hr Insulin Detemir (Levemir) 14 unit SC HS [facility] Last Admin: 12/31/16 13:36 Dose: 14 unit Insulin Human Regular (Novolin R) 0 unit SC ACHS [facility] PRN Reason: Protocol Last Admin: 01/01/17 17:52 Dose: 1 unit Losartan Potassium (Cozaar) 50 mg PO DAILY [facility] Last Admin: 01/01/17 11:08 Dose: 50 mg Multivitamins (Hexavitamin) 1 tab PO DAILY [facility] Last Admin: 01/01/17 11:08 Dose: 1 tab Polyethylene Glycol (Miralax) 17 gm PO DAILY [facility] Last Admin: 01/01/17 11:08 Dose: 17 gm Potassium Chloride (K-Dur 20 Meq Er Tab) 20 meq PO DAILY [facility] Last Admin: 01/01/17 11:07 Dose: 20 meq Pregabalin (Lyrica) 75 mg PO DAILY [facility] Last Admin: 01/01/17 11:07 Dose: 75 mg Repaglinide (Prandin) 1 mg PO TIDAC [facility] Last Admin: 01/01/17 17:55 Dose: 1 mg Terazosin HCl (Hytrin) 1 mg PO HS [facility] Last Admin: 12/31/16 21:11 Dose: 1 mg - Labs Labs: 12/30/16 06:44 12/31/16 06:45 PT 12.1 SECONDS (9.7-12.2) 12/29/16 07:10 INR 1.1 12/29/16 07:10 APTT 33 SECONDS (21-34) 12/29/16 07:10 - Constitutional Appears: Non-toxic - Eye Exam Pupil Exam: NORMAL ACCOMODATION - ENT Exam ENT Exam: Mucous Membranes Moist - Neck Exam Neck Exam: Full ROM - Respiratory Exam Respiratory Exam: NORMAL BREATHING PATTERN - Cardiovascular Exam Cardiovascular Exam: REGULAR RHYTHM - GI/Abdominal Exam GI & Abdominal Exam: Normal Bowel Sounds - Rectal Exam Rectal Exam: NORMAL INSPECTION - Exam Exam: NORMAL INSPECTION - Extremities Exam Additional comments: gangrenous ulcer toe osteomilitis - Psychiatric Exam Psychiatric exam: Normal Affect - Skin Skin Exam: Dry Assessment and Plan - Assessment and Plan (Free Text) Assessment: osteomilitis gangrenous uler dm obesity Plan: discharge on iv ab at home f/u in drs office
== END 2017-01-01 20:00 | disposition home or self-care (01) | DRG 271 ==
LOC: C.ER 13:56 → C.9E 16:20 → C.3T 18:32 → OBSVTOIN 12-26 14:31 → C.3T 12-30 00:57
PROVIDERS: ADMIT Internal Medicine; ATTEND Internal Medicine
PROC: 04HK3DZ Insertion of Intraluminal Device into Right Femoral Artery, Percutaneous Approach (ICD-10-PCS; 2016-12-29)
PROC: 047T3ZZ Dilation of Right Peroneal Artery, Percutaneous Approach (ICD-10-PCS; 2016-12-29)
PROC: 04CT3ZZ Extirpation of Matter from Right Peroneal Artery, Percutaneous Approach (ICD-10-PCS; principal; 2016-12-29 11:30)
DX: E11.52 Type 2 diabetes mellitus with diabetic peripheral angiopathy with gangrene (principal); L03.115 Cellulitis of right lower limb; E11.621 Type 2 diabetes mellitus with foot ulcer; L02.611 Cutaneous abscess of right foot; M86.9 Osteomyelitis, unspecified; L97.519 Non-pressure chronic ulcer of other part of right foot with unspecified severity; I10 Essential (primary) hypertension; E66.9 Obesity, unspecified; E11.69 Type 2 diabetes mellitus with other specified complication; E11.622 Type 2 diabetes mellitus with other skin ulcer; E78.5 Hyperlipidemia, unspecified; K59.00 Constipation, unspecified; Z85.46 Personal history of malignant neoplasm of prostate; Z86.73 Personal history of transient ischemic attack (TIA), and cerebral infarction without residual deficits; Z68.35 Body mass index [BMI] 35.0-35.9, adult

== ENCOUNTER 2017-01-30 06:41 | Inpatient (IN) | payer BC, MEDICARE ==
--- NOTE | 2017-01-30 07:29 | C.PDOC ---
History Of Present Illness 71 yr old male presents to the ER for evaluation of new onset of color change to the right foot since yesterday. Patient states he is currently receiving outpatient antibiotic treatment for the right foot Osteomyelitis for the past 5 weeks and is s/p follow up with Dr. Aragon last week and was advised he has a infected end of bone in 1st toe. Family states "he is waiting for us to make a decision for amputation". Patient states his changes the dressing daily. Patient also reports he is s/p RLE angio with balloon on 12/[address] Vences. Patient denies fever, chills, chest pain, palpitations, SOB, nausea, vomiting, back pain, weakness or numbness. NEW ONSET COLOR CHANGE R FOOT SINCE YEST. CURRENTLY RECEIVING OUTPT ABX FOR R FOOT OSTEOMYELITIS x 5 weeks. S/P FU W DR ARAGON LAST WEEK WAS ADVISED HAS INFECTED END OF BONE IN 1ST TOE. FAMILY STATES "HE'S WAITING FOR US TO MAKE A DECISION FOR AMPUTATION". CHANGES WOUND DAILY. S/P RLE ANGIO W BALLOON 2016 DR VENCES EXAM NONTOXIC NAD EXT R FOOT +GANGRENE 1ST TOE. NO DEFORM SKIN +CELLULITIS TOP R FOOT, DISTAL R LOWER LEG. REMAINDER NEG Time Seen by Provider: 01/30/17 07:16 Chief Complaint (Nursing): Lower Extremity Problem/Injury History Per: Patient History/Exam Limitations: no limitations Onset/Duration Of Symptoms: Sudden Onset (Yesterday) Current Symptoms Are (Timing): Still Present Past Medical History Reviewed: Historical Data, Nursing Documentation, Vital Signs Vital Signs: Last Vital Signs Temp 97.9 F 01/30/17 06:52 Pulse 93 H 01/30/17 06:52 Resp 16 01/30/17 06:52 BP 150/79 01/30/17 06:52 Pulse Ox 98 01/30/17 09:05 - Medical History PMH: Arthritis, HTN, Peripheral Edema - [facility] Procedures DILATION OF RIGHT PERONEAL ARTERY, PERCUTANEOUS APPROACH (12/26/16) EXTIRPATION OF MATTER FROM R PERONEAL ART, PERC APPROACH (12/26/16) INSERTION OF INTRALUM DEV INTO R FEM ART, PERC APPROACH (12/26/16) INSPECTION OF BLADDER, ENDO (06/21/15) RESECTION OF PROSTATE, ENDO (06/21/15) ULTRASONOGRAPHY OF RIGHT AND LEFT HEART, TRANSESOPHAGEAL (10/12/16) Family History: States: No Known Family Hx - Social History Hx Alcohol Use: No Hx Substance Use: No - Immunization History Hx Tetanus Toxoid Vaccination: No Hx Influenza Vaccination: Yes Hx Pneumococcal Vaccination: Yes Review Of Systems Except As Marked, All Systems Reviewed And Found Negative. Constitutional: Negative for: Fever, Chills Cardiovascular: Negative for: Chest Pain, Palpitations Respiratory: Negative for: Shortness of Breath Gastrointestinal: Negative for: Nausea, Vomiting Musculoskeletal: Positive for: Other ((+) Right foot, color change ). Negative for: Back Pain Neurological: Negative for: Weakness, Numbness Physical Exam - Physical Exam Appears: Non-toxic, No Acute Distress Skin: Warm, Dry Head: Atraumatic, Normacephalic Oral Mucosa: Moist Chest: Symmetrical, No Tenderness Cardiovascular: Rhythm Regular, No Murmur Respiratory: Normal Breath Sounds, No Rales, No Rhonchi, No Stridor, No Wheezing Extremity: No Deformity, Other (Right Foot - + Gangrene 1st toe. +Cellulitis top right foot, distal right lower leg.) Neurological/Psych: Oriented x3, Normal Speech, Normal Motor ED Course And Treatment - Laboratory Results Result Diagrams: 01/30/17 08:15 01/30/17 08:15 ECG: Interpreted By Me ECG Rhythm: 1st Degree HB ECG Interpretation: Abnormal Rate From EC O2 Sat by Pulse Oximetry: 98 (RA) Pulse Ox Interpretation: Normal - Radiology CXR: Interpreted by Me, Viewed By Me CXR Interpretation: Yes: No Acute Disease - Other Rad X-Ray - Right Foot X-Ray: Interpreted by Me, Viewed By Me Interpretation: Compared to 12/25, increase bone lose. Progress - Re-Evaluation Re-evaluation Note: 01/30/17 07:42 D/W PODIATRY RESIDENT AWARE OF ER FINDINGS WILL CONSULT 01/30/17 09:02 D/W MED AGRICULTURAL EDUCATION PROFESSOR DR HENRY WILL ADMIT. CONSULT DR KNIGHT PER PRIOR ADMISSIONS 01/30/17 10:17 D/W DR KNIGHT. WILL CONSULT, AGREES W ALEX - Data Reviewed Data Reviewed: Lab, Diagnostic imaging, Old records - Continuity of Care Discussed patient case with:: Patient, Family-HIPPA compliant, On-call PMD-pt unassigned Discussed pt. case with senior safety management consultant/specialty: Podiatry Medical Decision Making Medical Decision Making: PLAN: * X-Ray - Right Foot * CXR * EKG * VBG * CBC * BMP Disposition Counseled Patient/Family Regarding: Studies Performed, Diagnosis - Disposition Disposition: HOSPITALIZED Disposition Time: 09:04 Condition: STABLE - POA Present On Arrival: Poor Glycemic Control, Pressure Ulcer - Clinical Impression Clinical Impression: Cellulitis, Osteomyelitis, Toe gangrene - Scribe Statement The provider has reviewed the documentation as recorded by the Lila To Provider Attestation: All medical record entries made by the Lila were at my direction and personally dictated by me. I have reviewed the chart and agree that the record accurately reflects my personal performance of the history, physical exam, medical decision making, and the department course for this patient. I have also personally directed, reviewed, and agree with the discharge instructions and disposition. Decision To Admit - Pt Status Changed To: Hospital Disposition Of: Inpatient - Admit Certification Admit to Inpatient:: After my assessment, the patient will require hospitalization for at least two midnights. This is because of the severity of symptoms shown, intensity of services needed, and/or the medical risk in this patient being treated as an outpatient. - InPatient: Physician Admission Certification: I certify that this patient requires 2 or more midnights of care for the following reason:: SEE NOTE - . Bed Request Type: Regular Admitting Physician: Zuleima Henry Patient Diagnosis: Cellulitis, Osteomyelitis, Toe gangrene
--- NOTE | 2017-01-30 08:26 | RAD ---
PROCEDURE: CHEST RADIOGRAPH, 1 VIEW HISTORY: Medical clearance COMPARISON: None available. FINDINGS: LUNGS: Mild venous congestion. Patchy increased markings at the left lung base. Right PICC line with tip extending to the cavoatrial junction. PLEURA: No pneumothorax or pleural fluid seen. CARDIOVASCULAR: Normal. OSSEOUS STRUCTURES: Degenerative changes in the spine with paravertebral osteophytes. VISUALIZED UPPER ABDOMEN: Normal. OTHER FINDINGS: None. IMPRESSION: Mild venous congestion. Patchy increased markings at the left lung base. Right PICC line with tip extending to the cavoatrial junction.
[2017-01-30 08:29] LABS: BASO # 0.1 K/uL (0.0-0.2); BASO % 0.5 % (0.0-2.0); EOS # 0.2 K/uL (0.0-0.7); EOS % 1.2 % (0.0-4.0); HEMATOCRIT 27.5 % (35.0-51.0); LYMPH # 1.5 K/uL (1.0-4.3); LYMPH % 9.5 % (20.0-40.0); MEAN CELL VOLUME 87.1 fL (80.0-94.0); MEAN CORPUSCULAR HEMOGLOBIN 28.8 pg (27.0-31.0); MEAN CORPUSCULAR HGB CONC 33.1 g/dL (33.0-37.0); MEAN PLATELET VOLUME 8.1 fL (7.2-11.7); MONO # 1.7 K/uL (0.0-0.8); MONO % 10.6 % (0.0-10.0); PLATELET COUNT 251 K/uL (130-400); RED CELL DISTRIBUTION WIDTH 13.3 % (11.5-14.5)
[2017-01-30 08:31] LABS: WHITE BLOOD COUNT 15.7 K/uL (4.8-10.8)
[2017-01-30 08:33] LABS: VENOUS BLOOD GAS BASE EXCESS -0.8 mmol/L (0.0-2.0); VENOUS BLOOD GAS PCO2 44 mmHg (40-60); VENOUS BLOOD PH 7.36 (7.32-7.43)
[2017-01-30 08:40] LABS: CHLORIDE 104 mmol/L (98-107); POTASSIUM 4.6 mmol/L (3.6-5.2); SODIUM 139 mmol/L (132-148)
[2017-01-30 08:43] LABS: BLOOD UREA NITROGEN 24 mg/dL (9-20); CARBON DIOXIDE 21 mmol/L (22-30); GFR AFRICAN-AMERICAN > 60; GLUCOSE,RANDOM 126 mg/dL (75-110)
[2017-01-30 08:44] LABS: CALCIUM 9.2 mg/dl (8.6-10.4)
--- NOTE | 2017-01-30 09:01 | RAD ---
PROCEDURE: Right Foot Radiographs. HISTORY: GANGRENE R 1 TOE COMPARISON: 12/25/2016 FINDINGS: BONES: Interval osteal lysis and fragmentation of the 1st distal phalanx present. . JOINTS: Normal. SOFT TISSUES: Abnormal soft tissue swelling soft tissue laceration overlying bandage surrounds great toe Extensive medial-lateral phleboliths lower leg. OTHER FINDINGS: None. IMPRESSION: Interval osteomyelitis with clinical history of gangrene here.
[2017-01-30 09:14] LABS: EOSINOPHIL 1 % (0-4); NEUTROPHIL 79 % (50-75); TOTAL CELLS COUNTED 100
--- NOTE | 2017-01-30 11:26 | CP.PCM.CON ---
History of Present Illness - History of Present Illness History of Present Illness: Podiatry Consult Note- Dr. Tate: This is a 71 yo male pt w/ pmh DM, arthritis, HTN, chronic lower extremity edema who was seen in ED today with Dr. Tate present for infection of right hallux. Pt is seen at bedside with family members present. Of note, patient had been receiving 5 weeks of antibiotic treatment as outpatient for previously diagnosed OM of the right hallux. Pt had recently seen Dr. Tate in the office last week who recommended amputation to patient. At that time family was hesitant about amputation and wanted to wait. Pt presents to ED today with complaint of redness and increased warmth toe right leg and foot. Denies recent f/n/v/sob/cp/weakness or dizziness however does complain of feeling cold. Offers no other complaints today. Review of Systems - Review of Systems Review of Systems: all systems reviewed and found to be negative except HPI Past Patient History - Infectious Disease Hx of Infectious Diseases: None - Past Medical History & Family History Past Medical History?: Yes - Past Social History Smoking Status: Never Smoked - CARDIAC Hx Hypertension: Yes Hx Peripheral Edema: Yes - PULMONARY Hx Respiratory Disorders: No - NEUROLOGICAL Hx Neurological Disorder: Yes HX Cerebrovascular Accident: Yes (x3) - HEENT Hx HEENT Problems: Yes Hx Cataracts: Yes (BILAT) - RENAL Hx Chronic Kidney Disease: No - ENDOCRINE/METABOLIC Hx Endocrine Disorders: Yes Hx Diabetes Mellitus Type 2: Yes - HEMATOLOGICAL/ONCOLOGICAL Hx Blood Disorders: No - INTEGUMENTARY Hx Dermatological Problems: No - MUSCULOSKELETAL/RHEUMATOLOGICAL Hx Arthritis: Yes - GASTROINTESTINAL Hx Gastrointestinal Disorders: No - GENITOURINARY/GYNECOLOGICAL Hx Genitourinary Disorders: Yes Hx Prostate Cancer: Yes (per md) - PSYCHIATRIC Hx Substance Use: No - SURGICAL HISTORY Hx Surgeries: Yes Hx Cataract Extraction: Yes (bilat) Other/Comment: I/D RECTAL ABSCESS X 2 - ANESTHESIA Hx Anesthesia: Yes Hx Anesthesia Reactions: No Hx Malignant Hyperthermia: No Meds Allergies/Adverse Reactions: Allergies Allergy/AdvReac Type Severity Reaction Status Date / Time No Known Allergies Allergy Verified 01/30/17 06:57 - Medications Medications: Current Medications Vancomycin HCl 1 gm/ Sodium (Chloride) 250 mls @ 166.7 mls/hr IVPB Q12 [facility] Last Admin: 09/26/17 10:54 Dose: 166.7 mls/hr Ibuprofen (Motrin Tab) 600 mg PO Q6H [facility] Last Admin: 01/30/17 10:34 Dose: 600 mg Physical Exam - Constitutional Appears: Non-toxic, No Acute Distress - Extremities Exam Extremities exam: Negative for: calf tenderness Additional comments: RLE exam: VASCULAR- DP/PT pulses are faintly palpable, skin temp runs warm to warm (with increased calor noted to anterior leg and hallux), cap refill < 3 sec to all digits, 3+ pitting edema noted to anterior legs and dorsum of feet bl (severe edema noted to right hallux) NEURO- pedal sensation is grossly diminished DERM- there is a full thickness ulceration noted to distal aspect of hallux measures approximately 0.5x0.5 x0.4 cm with mixed fibrogranular base and macerated border, wound does not probe to bone, no tracking, digit does feel fluctuant, 0.5 cc purulent drainage noted on compression of wound, there is javier -wound ertythema noted erythema begins mid-leg and extends circumferentially to distal foot. ORTHO- no gross deformities seen. - Neurological Exam Neurological exam: Alert, CN II-XII Intact, Oriented x3 - Psychiatric Exam Psychiatric exam: Normal Affect, Normal Mood Results - Vital Signs Recent Vital Signs: Last Vital Signs Temp 97.9 F 01/30/17 06:52 Pulse 93 H 01/30/17 06:52 Resp 16 01/30/17 06:52 BP 150/79 01/30/17 06:52 Pulse Ox 98 01/30/17 10:17 - Labs Result Diagrams: 01/30/17 08:15 01/30/17 08:15 Labs: Laboratory Results - last 24 hr 01/30/17 01/30/17 01/30/17 08:15 08:15 08:30 WBC 15.7 H D RBC 3.16 L Hgb 9.1 L Hct 27.5 L MCV 87.1 MCH 28.8 MCHC 33.1 RDW 13.3 Plt Count 251 MPV 8.1 Neut % (Auto) 78.2 H Lymph % (Auto) 9.5 L [place] % (Auto) 10.6 H Eos % (Auto) 1.2 Baso % (Auto) 0.5 Neut # 12.3 H Lymph # 1.5 Titus # 1.7 H Eos # 0.2 Baso # 0.1 Neutrophils % (Manual) 79 H Lymphocytes % (Manual) 10 L Monocytes % (Manual) 10 Eosinophils % (Manual) 1 Platelet Estimate Normal Hypochromasia (manual) Slight Poikilocytosis (manual Slight Anisocytosis (manual) Slight Target Cells Slight Ovalocytes Slight [place] Cells Slight pO2 28 L VBG pH 7.36 VBG pCO2 44 VBG HCO3 23.0 VBG Total CO2 26.3 VBG O2 Sat (Calc) 54.9 VBG Base Excess -0.8 L VBG Potassium 4.7 Glucose 149 H Lactate 0.9 Sodium 139 138.0 Potassium 4.6 Chloride 104 110.0 H Carbon Dioxide 21 L Anion Gap 19 BUN 24 H Creatinine 1.3 Est GFR ( Amer) > 60 Est GFR (Non-Af Amer) 54 Random Glucose 126 H Calcium 9.2 Venous Blood Potassium 4.7 Assessment & Plan - Assessment and Plan (Free Text) Assessment: 71 yo male patient with ulceration and +OM right hallux 2/2 diabetic neuropathy Plan: Pt S&E with Dr. Tate at bedside in the ED Chart, vitals, labs reviewed: afebrile, WBC elevated 15.7 Wound cx taken: results pending Right foot x-ray (01/30/17): interval osteolysis and fragmentation of 1st distal phalanx (this is consistent with OM) ID on consult (Dr. Morrow): f/u recommendations. On vanco Discussed with pt and family members present that pt will require amputation of right great toe. Addressed all questions and concerns with patient. Plan for OR tomorrow Sunday01/31/17 9 AM for right hallux amputation with Dr. Tate Will require medical clx from primary NPO past midnight Will follow
--- NOTE | 2017-01-30 12:00 | CP.PCM.CON ---
History of Present Illness - History of Present Illness History of Present Illness: 71 yr old male presents to the ER for evaluation of new onset of redness to the right foot since yesterday. Patient states he is currently receiving outpatient antibiotic treatment for the right foot Osteomyelitis for the past 5 weeks and is s/p follow up with Dr. Aragon last week and was advised he has a infected end of bone in 1st toe. Family states "he is waiting for us to make a decision for amputation". Patient states his changes the dressing daily. Patient also reports he is s/p RLE angio with balloon on 12/[address] Vences. Patient denies fever, chills, chest pain, palpitations, SOB, nausea, vomiting, back pain, weakness or numbness. did not follow up with me after discharge and no lab works or cultures forwarded to my attention NEW ONSET COLOR CHANGE R FOOT SINCE YEST. CURRENTLY RECEIVING OUTPT ABX FOR R FOOT OSTEOMYELITIS x 5 weeks. S/P FU W DR ARAGON LAST WEEK WAS ADVISED HAS INFECTED END OF BONE IN 1ST TOE. FAMILY STATES "HE'S WAITING FOR US TO MAKE A DECISION FOR AMPUTATION". CHANGES WOUND DAILY. S/P RLE ANGIO W BALLOON 2016 DR VENCES - Medical History PMH: Arthritis, HTN, Peripheral Edema - [facility] Procedures DILATION OF RIGHT PERONEAL ARTERY, PERCUTANEOUS APPROACH (12/26/16) EXTIRPATION OF MATTER FROM R PERONEAL ART, PERC APPROACH (12/26/16) INSERTION OF INTRALUM DEV INTO R FEM ART, PERC APPROACH (12/26/16) INSPECTION OF BLADDER, ENDO (06/21/15) RESECTION OF PROSTATE, ENDO (06/21/15) ULTRASONOGRAPHY OF RIGHT AND LEFT HEART, TRANSESOPHAGEAL (10/12/16) Review of Systems - Constitutional Constitutional: As Per HPI - EENT Eyes: absent: As Per HPI, Blind Spots, Blurred Vision, Change in Vision, Decreased Night Vision, Diplopia, Discharge, Dry Eye, Exophthalmos, Floaters, Irritation, Itchy Eyes, Loss of Peripheral Vision, Pain, Photophobia, Requires Corrective Lenses, Sees Flashes, Spots in Vision, Tunnel Vision, Other Visual Disturbances, Loss of Vision, Other Ears: absent: As Per HPI, Decreased Hearing, Ear Discharge, Ear Pain, Tinnitus, Abnormal Hearing, Disequilibrium, Dizziness, Other Nose/Mouth/Throat: absent: As Per HPI, Epistaxis, Nasal Congestion, Nasal Discharge, Nasal Obstruction, Nasal Trauma, Nose Pain, Post Nasal Drip, Sinus Pain, Sinus Pressure, Bleeding Gums, Change in Voice, Dental Pain, Dry Mouth, Dysphagia, Halitosis, Hoarsness, Lip Swelling, Mouth Lesions, Mouth Pain, Odynophagia, Sore Throat, Throat Swelling, Tongue Swelling, Facial Pain, Neck Pain, Neck Mass, Other - Cardiovascular Cardiovascular: absent: As Per HPI, Acrocyanosis, Chest Pain, Chest Pain at Rest , Chest Pain with Activity, Claudication, Diaphoresis, Dyspnea, Dyspnea on Exertion, Edema, Irregular Heart Rhythm, Pain Radiating to Arm/Neck/Jaw, Leg Edema, Leg Ulcers, Lightheadedness, Orthopnea, Palpitations, Paroxysmal Nocturnal Dyspnea, Pedal Edema, Radiating Pain, Rapid Heart Rate, Slow Heart Rate, Syncope, Other - Respiratory Respiratory: absent: As Per HPI, Cough, Dyspnea, Hemoptysis, Dyspnea on Exertion , Wheezing, Snoring, Stridor, Pain on Inspiration, Chest Congestion, Excessive Mucous Production, Change in Mucous Color, Pain with Coughing, Other - Gastrointestinal Gastrointestinal: absent: As Per HPI, Abdominal Pain, Belching, Bloating, Change in Bowel Habits, Change in Stool Character, Coffee Ground Emesis, Constipation, Cramping, Diarrhea, Dyspepsia, Dysphagia, Early Satiety, Excessive Flatus, Fecal Incontinence, Heartburn, Hematemesis, Hematochezia, Loose Stools, Melena, Nausea, Odynophagia, Temesmus, Vomiting, Other - Genitourinary Genitourinary: absent: As Per HPI, Change in Urinary Stream, Difficulty Urinating, Dysuria, Flank Pain, Hematuria, Pyuria, Nocturia, Urinary Incontinence, Urinary Frequency, Urinary Hesitance, Urinary Urgency, Voiding Freq/Small Amts, Freq UTI, Hx Renal/Bladder Calculi, Hx /Renal Surgery, Bladder Distension, Other - Musculoskeletal Musculoskeletal: As Per HPI - Integumentary Integumentary: As Per HPI, Skin Pain, Wounds - Neurological Neurological: As Per HPI - Psychiatric Psychiatric: absent: As Per HPI, Abnormal Sleep Pattern, Anhedonia, Anxiety, Auditory Hallucinations, Behavioral Changes, Change in Appetite, Change in Libido, Confusion, Depression, Difficulty Concentrating, Hallucinations, Homicidal Ideation, Hopelessness, Irritability, Memory Loss, Mood Swings, Panic Attacks, Paranoia, Suicidal Ideation, Visual Hallucinations, Tactile Hallucinations, Other - Endocrine Endocrine: absent: As Per HPI, Change in Body Appearance, Change in Libido, Cold Intolorance, Deepening of Voice, Excessive Sweating, Fatigue, Flushing, Heat Intolorance, Increase in Ring/Shoe/Hat Size, Palpitations, Polydipsia, Polyphagia, Polyuria, Other - Hematologic/Lymphatic Hematologic: absent: As Per HPI, Easy Bleeding, Easy Bruising, Lymphadenopathy, Other Past Patient History - Infectious Disease Hx of Infectious Diseases: None - Past Medical History & Family History Past Medical History?: Yes - Past Social History Smoking Status: Never Smoked - CARDIAC Hx Hypertension: Yes Hx Peripheral Edema: Yes - PULMONARY Hx Respiratory Disorders: No - NEUROLOGICAL Hx Neurological Disorder: Yes HX Cerebrovascular Accident: Yes (x3) - HEENT Hx HEENT Problems: Yes Hx Cataracts: Yes (BILAT) - RENAL Hx Chronic Kidney Disease: No - ENDOCRINE/METABOLIC Hx Endocrine Disorders: Yes Hx Diabetes Mellitus Type 2: Yes - HEMATOLOGICAL/ONCOLOGICAL Hx Blood Disorders: No - INTEGUMENTARY Hx Dermatological Problems: No - MUSCULOSKELETAL/RHEUMATOLOGICAL Hx Arthritis: Yes - GASTROINTESTINAL Hx Gastrointestinal Disorders: No - GENITOURINARY/GYNECOLOGICAL Hx Genitourinary Disorders: Yes Hx Prostate Cancer: Yes (per md) - PSYCHIATRIC Hx Substance Use: No - SURGICAL HISTORY Hx Surgeries: Yes Hx Cataract Extraction: Yes (bilat) Other/Comment: I/D RECTAL ABSCESS X 2 - ANESTHESIA Hx Anesthesia: Yes Hx Anesthesia Reactions: No Hx Malignant Hyperthermia: No Meds Allergies/Adverse Reactions: Allergies Allergy/AdvReac Type Severity Reaction Status Date / Time No Known Allergies Allergy Verified 01/30/17 06:57 - Medications Medications: Current Medications Vancomycin HCl 1 gm/ Sodium (Chloride) 250 mls @ 166.7 mls/hr IVPB Q12 [facility] Last Admin: 01/30/17 10:54 Dose: 166.7 mls/hr Ibuprofen (Motrin Tab) 600 mg PO Q6H [facility] Last Admin: 01/30/17 10:34 Dose: 600 mg Physical Exam - Constitutional Appears: Non-toxic, Chronically Ill - Head Exam Head Exam: ATRAUMATIC, NORMAL INSPECTION, NORMOCEPHALIC - Eye Exam Eye Exam: EOMI, PERRL. absent: Scleral icterus - ENT Exam ENT Exam: Mucous Membranes Dry, Normal External Ear Exam, Normal Oropharynx - Neck Exam Neck exam: Negative for: Lymphadenopathy, Thyromegaly - Respiratory Exam Respiratory Exam: Decreased Breath Sounds, Clear to Auscultation Bilateral - Cardiovascular Exam Cardiovascular Exam: REGULAR RHYTHM, +S1, +S2 - GI/Abdominal Exam GI & Abdominal Exam: Diminished Bowel Sounds, Distended, Soft. absent: Rebound , Rigid, Tenderness - Rectal Exam Rectal Exam: Deferred - Exam Exam: NORMAL INSPECTION - Extremities Exam Extremities exam: Positive for: pedal edema, tenderness. Negative for: calf tenderness, pedal pulses present Additional comments: gangrene right great toe - Back Exam Back exam: absent: CVA tenderness (L), CVA tenderness (R) - Neurological Exam Neurological exam: Alert, CN II-XII Intact, Oriented x3, Reflexes Normal - Psychiatric Exam Psychiatric exam: Depressed - Skin Skin Exam: Dry Results - Vital Signs Recent Vital Signs: Last Vital Signs Temp 97.9 F 01/30/17 06:52 Pulse 93 H 01/30/17 06:52 Resp 16 01/30/17 06:52 BP 150/79 01/30/17 06:52 Pulse Ox 98 01/30/17 10:17 - Labs Result Diagrams: 01/30/17 08:15 01/30/17 08:15 Labs: Laboratory Results - last 24 hr 01/30/17 01/30/17 01/30/17 08:15 08:15 08:30 WBC 15.7 H D RBC 3.16 L Hgb 9.1 L Hct 27.5 L MCV 87.1 MCH 28.8 MCHC 33.1 RDW 13.3 Plt Count 251 MPV 8.1 Neut % (Auto) 78.2 H Lymph % (Auto) 9.5 L Saline % (Auto) 10.6 H Eos % (Auto) 1.2 Baso % (Auto) 0.5 Neut # 12.3 H Lymph # 1.5 Saline # 1.7 H Eos # 0.2 Baso # 0.1 Neutrophils % (Manual) 79 H Lymphocytes % (Manual) 10 L Monocytes % (Manual) 10 Eosinophils % (Manual) 1 Platelet Estimate Normal Hypochromasia (manual) Slight Poikilocytosis (manual Slight Anisocytosis (manual) Slight Target Cells Slight Ovalocytes Slight [place] Cells Slight pO2 28 L VBG pH 7.36 VBG pCO2 44 VBG HCO3 23.0 VBG Total CO2 26.3 VBG O2 Sat (Calc) 54.9 VBG Base Excess -0.8 L VBG Potassium 4.7 Glucose 149 H Lactate 0.9 Sodium 139 138.0 Potassium 4.6 Chloride 104 110.0 H Carbon Dioxide 21 L Anion Gap 19 BUN 24 H Creatinine 1.3 Est GFR ( Amer) > 60 Est GFR (Non-Af Amer) 54 POC Glucose (mg/dL) Random Glucose 126 H Calcium 9.2 Venous Blood Potassium 4.7 01/30/17 11:45 WBC RBC Hgb Hct MCV MCH MCHC RDW Plt Count MPV Neut % (Auto) Lymph % (Auto) Saline % (Auto) Eos % (Auto) Baso % (Auto) Neut # Lymph # Saline # Eos # Baso # Neutrophils % (Manual) Lymphocytes % (Manual) Monocytes % (Manual) Eosinophils % (Manual) Platelet Estimate Hypochromasia (manual) Poikilocytosis (manual Anisocytosis (manual) Target Cells Ovalocytes [place] Cells pO2 VBG pH VBG pCO2 VBG HCO3 VBG Total CO2 VBG O2 Sat (Calc) VBG Base Excess VBG Potassium Glucose Lactate Sodium Potassium Chloride Carbon Dioxide Anion Gap BUN Creatinine Est GFR ( Amer) Est GFR (Non-Af Amer) POC Glucose (mg/dL) 156 H Random Glucose Calcium Venous Blood Potassium Assessment & Plan (1) Cellulitis Status: Acute (2) Osteomyelitis Status: Acute (3) Toe gangrene Status: Acute (4) Abscess of great toe Status: Acute (5) Diabetes mellitus Status: Acute - Assessment and Plan (Free Text) Assessment: add vanco/zosyn will likely need amputation after vascular eval
[2017-01-30] MEDS: Piperacillin/Tazobact 3.375 GM in Sodium Chloride 100 ML IVPB SCH ×2 (15:30→19:30)
[2017-01-30] MEDS: GlipiZIDE 2.5 mg Tab PO SCH (17:17)
[2017-01-30 20:04] LABS: CHOLESTEROL 124 mg/dL (0-199)
[2017-01-30 20:05] LABS: IRON 15 ug/dL (49-181)
[2017-01-30 21:14] LABS: FOLATE > 20.0 ng/mL
[2017-01-30] MEDS ORDERED: Rosuvastatin Calcium 2.5 mg Tab PO SCH (22:00)
[2017-01-30] MEDS ORDERED: POLYETHYLENE GLYCOL 3350 17 GM/Dose PACKET PO ONE (22:42)
[2017-01-30] MEDS: Rosuvastatin Calcium 2.5 mg Tab PO SCH (22:55)
[2017-01-30] MEDS ORDERED: Sodium Chloride 0.9% 1,000 ML IV SCH (23:00)
[2017-01-31] MEDS: Piperacillin/Tazobact 3.375 GM in Sodium Chloride 100 ML IVPB SCH ×4 (02:10→21:00)
--- NOTE | 2017-01-31 07:20 | CP.PCM.CON ---
History of Present Illness - History of Present Illness History of Present Illness: Preoperative cardiovascular risk stratification prior to amputation of RLE ( infected toes ) HPI: 71-year-old male from [facility] with past medical history significant for hypertension diabetes mellitus hyperlipidemia ischemic stroke 3 severe peripheral vascular occlusive disease status post [employer] angioplasty of right lower extremity in December who presented with osteomyelitis of the right great toe for possible plan amputation. Patient at baseline can walk a block without any active ischemic symptoms denies having any chest pains shortness of breath palpitations. EKG done today shows normal sinus rhythm with no acute ischemic changes patient had undergone a recent transesophageal echocardiogram in October which showed no major valvular heart disease. He is being planned for possible amputation of the first great toe at the site of the osteomyelitis. Review of Systems - Review of Systems All systems: reviewed and no additional remarkable complaints except - Constitutional Constitutional: As Per HPI - EENT Eyes: As Per HPI Ears: As Per HPI Nose/Mouth/Throat: As Per HPI - Cardiovascular Cardiovascular: As Per HPI - Respiratory Respiratory: As Per HPI - Gastrointestinal Gastrointestinal: As Per HPI - Genitourinary Genitourinary: As Per HPI - Reproductive: Male Reproductive:Male: As Per HPI - Musculoskeletal Musculoskeletal: As Per HPI - Integumentary Integumentary: As Per HPI - Neurological Neurological: As Per HPI - Psychiatric Psychiatric: As Per HPI - Endocrine Endocrine: As Per HPI - Hematologic/Lymphatic Hematologic: As Per HPI Past Patient History - Infectious Disease Hx of Infectious Diseases: None - Past Medical History & Family History Past Medical History?: Yes Pertinent Family History: +ve for HTN - Past Social History Smoking Status: Never Smoked - CARDIAC Hx Hypertension: Yes Hx Peripheral Edema: Yes - PULMONARY Hx Respiratory Disorders: No - NEUROLOGICAL Hx Neurological Disorder: Yes HX Cerebrovascular Accident: Yes (x3) - HEENT Hx HEENT Problems: Yes Hx Cataracts: Yes (BILAT) - RENAL Hx Chronic Kidney Disease: No - ENDOCRINE/METABOLIC Hx Endocrine Disorders: Yes Hx Diabetes Mellitus Type 2: Yes - HEMATOLOGICAL/ONCOLOGICAL Hx Blood Disorders: No - INTEGUMENTARY Hx Dermatological Problems: No - MUSCULOSKELETAL/RHEUMATOLOGICAL Hx Falls: No - GASTROINTESTINAL Hx Gastrointestinal Disorders: No - GENITOURINARY/GYNECOLOGICAL Hx Genitourinary Disorders: Yes Hx Prostate Cancer: Yes (per md) - PSYCHIATRIC Hx Substance Use: No - SURGICAL HISTORY Hx Surgeries: Yes Hx Cataract Extraction: Yes (bilat) Other/Comment: I/D RECTAL ABSCESS X 2 - ANESTHESIA Hx Anesthesia: Yes Hx Anesthesia Reactions: No Hx Malignant Hyperthermia: No Meds Allergies/Adverse Reactions: Allergies Allergy/AdvReac Type Severity Reaction Status Date / Time No Known Allergies Allergy Verified 01/30/17 06:57 - Medications Medications: Current Medications Acetaminophen (Tylenol 325mg Tab) 650 mg PO Q6 PRN PRN Reason: Pain, moderate (4-7) Glipizide (Glucotrol) 5 mg PO BID [facility] Last Admin: 01/30/17 17:17 Dose: 5 mg Heparin Sodium (Porcine) (Heparin) 5,000 units SC BID [facility] Vancomycin HCl 1 gm/ Sodium (Chloride) 250 mls @ 166.7 mls/hr IVPB Q12 [facility] Last Admin: 01/30/17 21:22 Dose: 166.7 mls/hr Piperacillin Sod/Tazobactam (Sod 3.375 gm/ Sodium Chloride) 100 mls @ 200 mls/ hr IVPB Q6H [facility] Last Admin: 01/31/17 02:10 Dose: 200 mls/hr Sodium Chloride (Sodium Chloride 0.9%) 1,000 mls @ 60 mls/hr IV .[id number] [facility] Last Admin: 01/30/17 22:55 Dose: 60 mls/hr Ibuprofen (Motrin Tab) 600 mg PO Q6H [facility] Last Admin: 01/31/17 04:38 Dose: Not Given Insulin Human Regular (Novolin R) 0 unit SC ACHS [facility] PRN Reason: Protocol Losartan Potassium (Cozaar) 50 mg PO DAILY [facility] Last Admin: 01/30/17 17:09 Dose: 50 mg Metformin HCl (Glucophage) 500 mg PO BID [facility] Last Admin: 01/30/17 17:17 Dose: 500 mg Multivitamins (Hexavitamin) 1 tab PO DAILY [facility] Pregabalin (Lyrica) 75 mg PO DAILY [facility] Rosuvastatin Calcium (Crestor) 2.5 mg PO HS [facility] Last Admin: 01/30/17 22:55 Dose: 2.5 mg Physical Exam - Constitutional Appears: Well - Head Exam Head Exam: ATRAUMATIC, NORMAL INSPECTION, NORMOCEPHALIC - Eye Exam Eye Exam: EOMI, Normal appearance, PERRL Pupil Exam: NORMAL ACCOMODATION, PERRL - ENT Exam ENT Exam: Mucous Membranes Moist, Normal Exam - Neck Exam Neck exam: Positive for: Normal Inspection - Respiratory Exam Respiratory Exam: Clear to Auscultation Bilateral, NORMAL BREATHING PATTERN - Cardiovascular Exam Cardiovascular Exam: REGULAR RHYTHM, RRR, +S1, +S2, Systolic Murmur - GI/Abdominal Exam GI & Abdominal Exam: Normal Bowel Sounds, Soft. absent: Tenderness - Extremities Exam Extremities exam: Positive for: normal inspection Additional comments: right great toe in dressing - Back Exam Back exam: NORMAL INSPECTION - Neurological Exam Neurological exam: Alert, CN II-XII Intact, Oriented x3, Reflexes Normal - Psychiatric Exam Psychiatric exam: Normal Affect, Normal Mood - Skin Skin Exam: Dry, Intact, Normal Color, Warm Results - Vital Signs Recent Vital Signs: Last Vital Signs Temp 97.9 F 01/30/17 23:45 Pulse 82 01/30/17 23:45 Resp 20 01/30/17 23:45 BP 156/74 H 01/30/17 23:45 Pulse Ox 96 01/30/17 23:45 - Labs Result Diagrams: 01/31/17 07:15 01/31/17 07:15 Labs: Laboratory Results - last 24 hr 01/30/17 01/30/17 01/30/17 08:15 08:15 08:30 WBC 15.7 H D RBC 3.16 L Hgb 9.1 L Hct 27.5 L MCV 87.1 MCH 28.8 MCHC 33.1 RDW 13.3 Plt Count 251 MPV 8.1 Neut % (Auto) 78.2 H Lymph % (Auto) 9.5 L [place] % (Auto) 10.6 H Eos % (Auto) 1.2 Baso % (Auto) 0.5 Neut # 12.3 H Lymph # 1.5 [place] # 1.7 H Eos # 0.2 Baso # 0.1 Neutrophils % (Manual) 79 H Lymphocytes % (Manual) 10 L Monocytes % (Manual) 10 Eosinophils % (Manual) 1 Platelet Estimate Normal Hypochromasia (manual) Slight Poikilocytosis (manual Slight Anisocytosis (manual) Slight Target Cells Slight Ovalocytes Slight [place] Cells Slight APTT pO2 28 L VBG pH 7.36 VBG pCO2 44 VBG HCO3 23.0 VBG Total CO2 26.3 VBG O2 Sat (Calc) 54.9 VBG Base Excess -0.8 L VBG Potassium 4.7 Glucose 149 H Lactate 0.9 Sodium 139 138.0 Potassium 4.6 Chloride 104 110.0 H Carbon Dioxide 21 L Anion Gap 19 BUN 24 H Creatinine 1.3 Est GFR ( Amer) > 60 Est GFR (Non-Af Amer) 54 POC Glucose (mg/dL) Random Glucose 126 H Hemoglobin A1c Calcium 9.2 Iron TIBC % Saturation Triglycerides Cholesterol LDL Cholesterol Direct HDL Cholesterol Vitamin B12 Folate Venous Blood Potassium 4.7 01/30/17 01/30/17 01/30/17 11:45 13:17 16:52 WBC RBC Hgb Hct MCV MCH MCHC RDW Plt Count MPV Neut % (Auto) Lymph % (Auto) [place] % (Auto) Eos % (Auto) Baso % (Auto) Neut # Lymph # [place] # Eos # Baso # Neutrophils % (Manual) Lymphocytes % (Manual) Monocytes % (Manual) Eosinophils % (Manual) Platelet Estimate Hypochromasia (manual) Poikilocytosis (manual Anisocytosis (manual) Target Cells Ovalocytes [place] Cells APTT 33 pO2 VBG pH VBG pCO2 VBG HCO3 VBG Total CO2 VBG O2 Sat (Calc) VBG Base Excess VBG Potassium Glucose Lactate Sodium Potassium Chloride Carbon Dioxide Anion Gap BUN Creatinine Est GFR ( Amer) Est GFR (Non-Af Amer) POC Glucose (mg/dL) 156 H 179 H Random Glucose Hemoglobin A1c Calcium Iron TIBC % Saturation Triglycerides Cholesterol LDL Cholesterol Direct HDL Cholesterol Vitamin B12 Folate Venous Blood Potassium 01/30/17 01/30/17 01/30/17 19:43 19:44 19:44 WBC RBC Hgb Hct MCV MCH MCHC RDW Plt Count MPV Neut % (Auto) Lymph % (Auto) [place] % (Auto) Eos % (Auto) Baso % (Auto) Neut # Lymph # [place] # Eos # Baso # Neutrophils % (Manual) Lymphocytes % (Manual) Monocytes % (Manual) Eosinophils % (Manual) Platelet Estimate Hypochromasia (manual) Poikilocytosis (manual Anisocytosis (manual) Target Cells Ovalocytes [place] Cells APTT pO2 VBG pH VBG pCO2 VBG HCO3 VBG Total CO2 VBG O2 Sat (Calc) VBG Base Excess VBG Potassium Glucose Lactate Sodium Potassium Chloride Carbon Dioxide Anion Gap BUN Creatinine Est GFR ( Amer) Est GFR (Non-Af Amer) POC Glucose (mg/dL) Random Glucose Hemoglobin A1c 7.9 H Calcium Iron 15 L TIBC 272 % Saturation 6 L Triglycerides 115 Cholesterol 124 LDL Cholesterol Direct 76 HDL Cholesterol 23 L Vitamin B12 404 Folate > 20.0 Venous Blood Potassium 01/30/17 20:54 WBC RBC Hgb Hct MCV MCH MCHC RDW Plt Count MPV Neut % (Auto) Lymph % (Auto) [place] % (Auto) Eos % (Auto) Baso % (Auto) Neut # Lymph # [place] # Eos # Baso # Neutrophils % (Manual) Lymphocytes % (Manual) Monocytes % (Manual) Eosinophils % (Manual) Platelet Estimate Hypochromasia (manual) Poikilocytosis (manual Anisocytosis (manual) Target Cells Ovalocytes [place] Cells APTT pO2 VBG pH VBG pCO2 VBG HCO3 VBG Total CO2 VBG O2 Sat (Calc) VBG Base Excess VBG Potassium Glucose Lactate Sodium Potassium Chloride Carbon Dioxide Anion Gap BUN Creatinine Est GFR ( Amer) Est GFR (Non-Af Amer) POC Glucose (mg/dL) 224 H Random Glucose Hemoglobin A1c Calcium Iron TIBC % Saturation Triglycerides Cholesterol LDL Cholesterol Direct HDL Cholesterol Vitamin B12 Folate Venous Blood Potassium Assessment & Plan (1) Preop cardiovascular exam Assessment and Plan: As per ACC/AHA guidelines he can proceed with planned surgical intervention with low to intermediate risk for perioperative cardiac event would recommend to continue with asa, plavix, statins add low dose BB Status: Acute (2) HTN (hypertension) Assessment and Plan: cont home meds cozaar Status: Chronic (3) Dyslipidemia Assessment and Plan: cont statins and omega 3 Status: Chronic (4) CAD (coronary artery disease) Assessment and Plan: high risk for CAD due to multiple co-morbidities will need ischemic evaluation as outpt cont dapt add BB cont statins and omega 3 Status: Acute
[2017-01-31 07:24] LABS: HEMATOCRIT 26.3 % (35.0-51.0); MEAN CELL VOLUME 87.6 fL (80.0-94.0); MEAN CORPUSCULAR HEMOGLOBIN 28.9 pg (27.0-31.0); MEAN PLATELET VOLUME 8.3 fL (7.2-11.7); RED CELL DISTRIBUTION WIDTH 13.6 % (11.5-14.5); WHITE BLOOD COUNT 12.7 K/uL (4.8-10.8)
[2017-01-31 07:27] LABS: INR 1.2
[2017-01-31 07:46] LABS: CHLORIDE 104 mmol/L (98-107)
[2017-01-31 07:47] LABS: POTASSIUM 4.4 mmol/L (3.6-5.2); SODIUM 140 mmol/L (132-148)
[2017-01-31 07:49] LABS: GFR AFRICAN-AMERICAN > 60
[2017-01-31 07:50] LABS: BLOOD UREA NITROGEN 22 mg/dL (9-20); CALCIUM 8.4 mg/dl (8.6-10.4); CARBON DIOXIDE 21 mmol/L (22-30); GLUCOSE,RANDOM 116 mg/dL (75-110)
--- NOTE | 2017-01-31 07:57 | CP.PCM.CON ---
<AI ARMAS - Last Filed: 01/31/17 07:46> History of Present Illness - History of Present Illness History of Present Illness: Ai Armas DO PGY1 - Cardiology Consult Note for Dr. Theodore Parkeraion for preoperative cardiac clearance HPI: Patient with PMH of HTN, DM, dyslipidemia, heart failure (per patient), prior ischemic CVA x3 presents for pain and ulceration in right great toe, which he has had for past 6 months. Found to have osteomyelitis, and amputation is planned for today. Patient is a poor historian, and does not recall the details of his past medical history, and does not know all the medications that he takes, though he reports that he does take ASA and plavix. He reports that he can climb a flight of stairs without pain or SOB, and that he can walk one block before he gets SOB, without any chest pain. Patient now denies any CP, SOB , F/C, N/V/D/C, abdominal pain, palpitations, orthopnea, dizziness, GARCIA. PMH: As above PSH: None Meds: (Per EMR) ASA, Plavix, Glipizide, Losartan, Sitagliptin/Metformin, Myrbetriq, Pravastatin, Lyrica Soc: Denies tobacco, alcohol, or illicits All: NKDA ROS: As above Past Patient History - Infectious Disease Hx of Infectious Diseases: None - Past Medical History & Family History Past Medical History?: Yes - Past Social History Smoking Status: Never Smoked - CARDIAC Hx Hypertension: Yes Hx Peripheral Edema: Yes - PULMONARY Hx Respiratory Disorders: No - NEUROLOGICAL Hx Neurological Disorder: Yes HX Cerebrovascular Accident: Yes (x3) - HEENT Hx HEENT Problems: Yes Hx Cataracts: Yes (BILAT) - RENAL Hx Chronic Kidney Disease: No - ENDOCRINE/METABOLIC Hx Endocrine Disorders: Yes Hx Diabetes Mellitus Type 2: Yes - HEMATOLOGICAL/ONCOLOGICAL Hx Blood Disorders: No - INTEGUMENTARY Hx Dermatological Problems: No - MUSCULOSKELETAL/RHEUMATOLOGICAL Hx Falls: No - GASTROINTESTINAL Hx Gastrointestinal Disorders: No - GENITOURINARY/GYNECOLOGICAL Hx Genitourinary Disorders: Yes Hx Prostate Cancer: Yes (per md) - PSYCHIATRIC Hx Substance Use: No - SURGICAL HISTORY Hx Surgeries: Yes Hx Cataract Extraction: Yes (bilat) Other/Comment: I/D RECTAL ABSCESS X 2 - ANESTHESIA Hx Anesthesia: Yes Hx Anesthesia Reactions: No Hx Malignant Hyperthermia: No Meds Allergies/Adverse Reactions: Allergies Allergy/AdvReac Type Severity Reaction Status Date / Time No Known Allergies Allergy Verified 01/30/17 06:57 - Medications Medications: Current Medications Acetaminophen (Tylenol 325mg Tab) 650 mg PO Q6 PRN PRN Reason: Pain, moderate (4-7) Glipizide (Glucotrol) 5 mg PO BID [facility] Last Admin: 01/30/17 17:17 Dose: 5 mg Heparin Sodium (Porcine) (Heparin) 5,000 units SC BID [facility] Vancomycin HCl 1 gm/ Sodium (Chloride) 250 mls @ 166.7 mls/hr IVPB Q12 [facility] Last Admin: 01/30/17 21:22 Dose: 166.7 mls/hr Piperacillin Sod/Tazobactam (Sod 3.375 gm/ Sodium Chloride) 100 mls @ 200 mls/ hr IVPB Q6H [facility] Last Admin: 01/31/17 02:10 Dose: 200 mls/hr Sodium Chloride (Sodium Chloride 0.9%) 1,000 mls @ 60 mls/hr IV .[id number] [facility] Last Admin: 01/30/17 22:55 Dose: 60 mls/hr Ibuprofen (Motrin Tab) 600 mg PO Q6H [facility] Last Admin: 01/31/17 04:38 Dose: Not Given Insulin Human Regular (Novolin R) 0 unit SC ACHS [facility] PRN Reason: Protocol Losartan Potassium (Cozaar) 50 mg PO DAILY [facility] Last Admin: 01/30/17 17:09 Dose: 50 mg Metformin HCl (Glucophage) 500 mg PO BID [facility] Last Admin: 01/30/17 17:17 Dose: 500 mg Multivitamins (Hexavitamin) 1 tab PO DAILY [facility] Pregabalin (Lyrica) 75 mg PO DAILY [facility] Rosuvastatin Calcium (Crestor) 2.5 mg PO HS [facility] Last Admin: 01/30/17 22:55 Dose: 2.5 mg Physical Exam - Constitutional Appears: Non-toxic, No Acute Distress, Chronically Ill - Head Exam Head Exam: ATRAUMATIC, NORMOCEPHALIC - Eye Exam Eye Exam: EOMI, Normal appearance - ENT Exam ENT Exam: Mucous Membranes Moist - Neck Exam Neck exam: Positive for: Full Rom, Normal Inspection - Respiratory Exam Respiratory Exam: Clear to Auscultation Bilateral. absent: Rales, Rhonchi, Wheezes - Cardiovascular Exam Cardiovascular Exam: RRR, +S1, +S2. absent: Diastolic murmur, Systolic Murmur - GI/Abdominal Exam GI & Abdominal Exam: Soft. absent: Tenderness - Extremities Exam Extremities exam: Positive for: pedal edema. Negative for: calf tenderness Additional comments: Right great toe bandaged - Neurological Exam Neurological exam: Alert, Oriented x3 - Psychiatric Exam Psychiatric exam: Normal Affect, Normal Mood - Skin Skin Exam: Dry, Intact Results - Vital Signs Recent Vital Signs: Last Vital Signs Temp 97.9 F 01/30/17 23:45 Pulse 82 01/30/17 23:45 Resp 20 01/30/17 23:45 BP 156/74 H 01/30/17 23:45 Pulse Ox 96 01/30/17 23:45 - Labs Result Diagrams: 01/31/17 07:15 01/30/17 08:15 Labs: Laboratory Results - last 24 hr 01/30/17 01/30/17 01/30/17 08:15 08:15 08:30 WBC 15.7 H D RBC 3.16 L Hgb 9.1 L Hct 27.5 L MCV 87.1 MCH 28.8 MCHC 33.1 RDW 13.3 Plt Count 251 MPV 8.1 Neut % (Auto) 78.2 H Lymph % (Auto) 9.5 L [place] % (Auto) 10.6 H Eos % (Auto) 1.2 Baso % (Auto) 0.5 Neut # 12.3 H Lymph # 1.5 [place] # 1.7 H Eos # 0.2 Baso # 0.1 Neutrophils % (Manual) 79 H Lymphocytes % (Manual) 10 L Monocytes % (Manual) 10 Eosinophils % (Manual) 1 Platelet Estimate Normal Hypochromasia (manual) Slight Poikilocytosis (manual Slight Anisocytosis (manual) Slight Target Cells Slight Ovalocytes Slight [place] Cells Slight PT INR APTT pO2 28 L VBG pH 7.36 VBG pCO2 44 VBG HCO3 23.0 VBG Total CO2 26.3 VBG O2 Sat (Calc) 54.9 VBG Base Excess -0.8 L VBG Potassium 4.7 Glucose 149 H Lactate 0.9 Sodium 139 138.0 Potassium 4.6 Chloride 104 110.0 H Carbon Dioxide 21 L Anion Gap 19 BUN 24 H Creatinine 1.3 Est GFR ( Amer) > 60 Est GFR (Non-Af Amer) 54 POC Glucose (mg/dL) Random Glucose 126 H Hemoglobin A1c Calcium 9.2 Iron TIBC % Saturation Triglycerides Cholesterol LDL Cholesterol Direct HDL Cholesterol Vitamin B12 Folate Venous Blood Potassium 4.7 01/30/17 01/30/17 01/30/17 11:45 13:17 16:52 WBC RBC Hgb Hct MCV MCH MCHC RDW Plt Count MPV Neut % (Auto) Lymph % (Auto) [place] % (Auto) Eos % (Auto) Baso % (Auto) Neut # Lymph # [place] # Eos # Baso # Neutrophils % (Manual) Lymphocytes % (Manual) Monocytes % (Manual) Eosinophils % (Manual) Platelet Estimate Hypochromasia (manual) Poikilocytosis (manual Anisocytosis (manual) Target Cells Ovalocytes [place] Cells PT INR APTT 33 pO2 VBG pH VBG pCO2 VBG HCO3 VBG Total CO2 VBG O2 Sat (Calc) VBG Base Excess VBG Potassium Glucose Lactate Sodium Potassium Chloride Carbon Dioxide Anion Gap BUN Creatinine Est GFR ( Amer) Est GFR (Non-Af Amer) POC Glucose (mg/dL) 156 H 179 H Random Glucose Hemoglobin A1c Calcium Iron TIBC % Saturation Triglycerides Cholesterol LDL Cholesterol Direct HDL Cholesterol Vitamin B12 Folate Venous Blood Potassium 01/30/17 01/30/17 01/30/17 19:43 19:44 19:44 WBC RBC Hgb Hct MCV MCH MCHC RDW Plt Count MPV Neut % (Auto) Lymph % (Auto) [place] % (Auto) Eos % (Auto) Baso % (Auto) Neut # Lymph # [place] # Eos # Baso # Neutrophils % (Manual) Lymphocytes % (Manual) Monocytes % (Manual) Eosinophils % (Manual) Platelet Estimate Hypochromasia (manual) Poikilocytosis (manual Anisocytosis (manual) Target Cells Ovalocytes [place] Cells PT INR APTT pO2 VBG pH VBG pCO2 VBG HCO3 VBG Total CO2 VBG O2 Sat (Calc) VBG Base Excess VBG Potassium Glucose Lactate Sodium Potassium Chloride Carbon Dioxide Anion Gap BUN Creatinine Est GFR ( Amer) Est GFR (Non-Af Amer) POC Glucose (mg/dL) Random Glucose Hemoglobin A1c 7.9 H Calcium Iron 15 L TIBC 272 % Saturation 6 L Triglycerides 115 Cholesterol 124 LDL Cholesterol Direct 76 HDL Cholesterol 23 L Vitamin B12 404 Folate > 20.0 Venous Blood Potassium 01/30/17 01/31/17 01/31/17 20:54 07:14 07:15 WBC 12.7 H RBC 3.00 L Hgb 8.7 L Hct 26.3 L MCV 87.6 MCH 28.9 MCHC 33.0 RDW 13.6 Plt Count 236 MPV 8.3 Neut % (Auto) Lymph % (Auto) [place] % (Auto) Eos % (Auto) Baso % (Auto) Neut # Lymph # [place] # Eos # Baso # Neutrophils % (Manual) Lymphocytes % (Manual) Monocytes % (Manual) Eosinophils % (Manual) Platelet Estimate Hypochromasia (manual) Poikilocytosis (manual Anisocytosis (manual) Target Cells Ovalocytes [place] Cells PT INR APTT pO2 VBG pH VBG pCO2 VBG HCO3 VBG Total CO2 VBG O2 Sat (Calc) VBG Base Excess VBG Potassium Glucose Lactate Sodium Potassium Chloride Carbon Dioxide Anion Gap BUN Creatinine Est GFR ( Amer) Est GFR (Non-Af Amer) POC Glucose (mg/dL) 224 H 159 H Random Glucose Hemoglobin A1c Calcium Iron TIBC % Saturation Triglycerides Cholesterol LDL Cholesterol Direct HDL Cholesterol Vitamin B12 Folate Venous Blood Potassium 01/31/17 07:15 WBC RBC Hgb Hct MCV MCH MCHC RDW Plt Count MPV Neut % (Auto) Lymph % (Auto) [place] % (Auto) Eos % (Auto) Baso % (Auto) Neut # Lymph # [place] # Eos # Baso # Neutrophils % (Manual) Lymphocytes % (Manual) Monocytes % (Manual) Eosinophils % (Manual) Platelet Estimate Hypochromasia (manual) Poikilocytosis (manual Anisocytosis (manual) Target Cells Ovalocytes [place] Cells PT 13.1 H INR 1.2 APTT pO2 VBG pH VBG pCO2 VBG HCO3 VBG Total CO2 VBG O2 Sat (Calc) VBG Base Excess VBG Potassium Glucose Lactate Sodium Potassium Chloride Carbon Dioxide Anion Gap BUN Creatinine Est GFR ( Amer) Est GFR (Non-Af Amer) POC Glucose (mg/dL) Random Glucose Hemoglobin A1c Calcium Iron TIBC % Saturation Triglycerides Cholesterol LDL Cholesterol Direct HDL Cholesterol Vitamin B12 Folate Venous Blood Potassium Assessment & Plan (1) Preop cardiovascular exam Assessment and Plan: Moderate-high risk patient going for low risk surgery Patient is a vasculopath, but currently no active valvular disease, functional capacity 4METs, EKG stable with no signs of active ischemia, HR stable Patient can proceed with planned surgical intervention [R great toe amputation] with low to moderate risk of perioperative cardiac event Status: Acute (2) Osteomyelitis Status: Acute (3) Dyslipidemia Status: Chronic (4) HTN (hypertension) Status: Chronic (5) Diabetes mellitus Status: Chronic <Donaldo Jaimes - Last Filed: 01/31/17 08:23> Meds - Medications Medications: Current Medications Acetaminophen (Tylenol 325mg Tab) 650 mg PO Q6 PRN PRN Reason: Pain, moderate (4-7) Glipizide (Glucotrol) 5 mg PO BID [facility] Last Admin: 01/30/17 17:17 Dose: 5 mg Heparin Sodium (Porcine) (Heparin) 5,000 units SC BID [facility] Vancomycin HCl 1 gm/ Sodium (Chloride) 250 mls @ 166.7 mls/hr IVPB Q12 [facility] Last Admin: 01/30/17 21:22 Dose: 166.7 mls/hr Piperacillin Sod/Tazobactam (Sod 3.375 gm/ Sodium Chloride) 100 mls @ 200 mls/ hr IVPB Q6H [facility] Last Admin: 01/31/17 02:10 Dose: 200 mls/hr Sodium Chloride (Sodium Chloride 0.9%) 1,000 mls @ 60 mls/hr IV .[id number] [facility] Last Admin: 01/30/17 22:55 Dose: 60 mls/hr Bacitracin 50,000 unit/ Sodium (Chloride) 1,000 mls @ 1,000 mls/hr IR .Q1H [facility] Stop: 01/31/17 09:15 Ibuprofen (Motrin Tab) 600 mg PO Q6H [facility] Last Admin: 01/31/17 04:38 Dose: Not Given Insulin Human Regular (Novolin R) 0 unit SC ACHS [facility] PRN Reason: Protocol Losartan Potassium (Cozaar) 50 mg PO DAILY [facility] Last Admin: 01/30/17 17:09 Dose: 50 mg Metformin HCl (Glucophage) 500 mg PO BID [facility] Last Admin: 01/30/17 17:17 Dose: 500 mg Multivitamins (Hexavitamin) 1 tab PO DAILY [facility] Pregabalin (Lyrica) 75 mg PO DAILY [facility] Rosuvastatin Calcium (Crestor) 2.5 mg PO HS [facility] Last Admin: 01/30/17 22:55 Dose: 2.5 mg Results - Vital Signs Recent Vital Signs: Last Vital Signs Temp 98.7 F 01/31/17 07:59 Pulse 80 01/31/17 07:59 Resp 20 01/31/17 07:59 BP 175/80 H 01/31/17 07:59 Pulse Ox 96 01/31/17 07:59 - Labs Result Diagrams: 01/31/17 07:15 01/31/17 07:15 Labs: Laboratory Results - last 24 hr 01/30/17 01/30/17 01/30/17 08:15 08:15 08:30 WBC 15.7 H D RBC 3.16 L Hgb 9.1 L Hct 27.5 L MCV 87.1 MCH 28.8 MCHC 33.1 RDW 13.3 Plt Count 251 MPV 8.1 Neut % (Auto) 78.2 H Lymph % (Auto) 9.5 L [place] % (Auto) 10.6 H Eos % (Auto) 1.2 Baso % (Auto) 0.5 Neut # 12.3 H Lymph # 1.5 [place] # 1.7 H Eos # 0.2 Baso # 0.1 Neutrophils % (Manual) 79 H Lymphocytes % (Manual) 10 L Monocytes % (Manual) 10 Eosinophils % (Manual) 1 Platelet Estimate Normal Hypochromasia (manual) Slight Poikilocytosis (manual Slight Anisocytosis (manual) Slight Target Cells Slight Ovalocytes Slight [place] Cells Slight PT INR APTT pO2 28 L VBG pH 7.36 VBG pCO2 44 VBG HCO3 23.0 VBG Total CO2 26.3 VBG O2 Sat (Calc) 54.9 VBG Base Excess -0.8 L VBG Potassium 4.7 Glucose 149 H Lactate 0.9 Sodium 139 138.0 Potassium 4.6 Chloride 104 110.0 H Carbon Dioxide 21 L Anion Gap 19 BUN 24 H Creatinine 1.3 Est GFR ( Amer) > 60 Est GFR (Non-Af Amer) 54 POC Glucose (mg/dL) Random Glucose 126 H Hemoglobin A1c Calcium 9.2 Iron TIBC % Saturation Triglycerides Cholesterol LDL Cholesterol Direct HDL Cholesterol Vitamin B12 Folate TSH 3rd Generation Venous Blood Potassium 4.7 01/30/17 01/30/17 01/30/17 11:45 13:17 16:52 WBC RBC Hgb Hct MCV MCH MCHC RDW Plt Count MPV Neut % (Auto) Lymph % (Auto) [place] % (Auto) Eos % (Auto) Baso % (Auto) Neut # Lymph # [place] # Eos # Baso # Neutrophils % (Manual) Lymphocytes % (Manual) Monocytes % (Manual) Eosinophils % (Manual) Platelet Estimate Hypochromasia (manual) Poikilocytosis (manual Anisocytosis (manual) Target Cells Ovalocytes [place] Cells PT INR APTT 33 pO2 VBG pH VBG pCO2 VBG HCO3 VBG Total CO2 VBG O2 Sat (Calc) VBG Base Excess VBG Potassium Glucose Lactate Sodium Potassium Chloride Carbon Dioxide Anion Gap BUN Creatinine Est GFR ( Amer) Est GFR (Non-Af Amer) POC Glucose (mg/dL) 156 H 179 H Random Glucose Hemoglobin A1c Calcium Iron TIBC % Saturation Triglycerides Cholesterol LDL Cholesterol Direct HDL Cholesterol Vitamin B12 Folate TSH 3rd Generation Venous Blood Potassium 01/30/17 01/30/17 01/30/17 19:43 19:44 19:44 WBC RBC Hgb Hct MCV MCH MCHC RDW Plt Count MPV Neut % (Auto) Lymph % (Auto) [place] % (Auto) Eos % (Auto) Baso % (Auto) Neut # Lymph # [place] # Eos # Baso # Neutrophils % (Manual) Lymphocytes % (Manual) Monocytes % (Manual) Eosinophils % (Manual) Platelet Estimate Hypochromasia (manual) Poikilocytosis (manual Anisocytosis (manual) Target Cells Ovalocytes [place] Cells PT INR APTT pO2 VBG pH VBG pCO2 VBG HCO3 VBG Total CO2 VBG O2 Sat (Calc) VBG Base Excess VBG Potassium Glucose Lactate Sodium Potassium Chloride Carbon Dioxide Anion Gap BUN Creatinine Est GFR ( Amer) Est GFR (Non-Af Amer) POC Glucose (mg/dL) Random Glucose Hemoglobin A1c 7.9 H Calcium Iron 15 L TIBC 272 % Saturation 6 L Triglycerides 115 Cholesterol 124 LDL Cholesterol Direct 76 HDL Cholesterol 23 L Vitamin B12 404 Folate > 20.0 TSH 3rd Generation Venous Blood Potassium 01/30/17 01/31/17 01/31/17 20:54 07:14 07:15 WBC 12.7 H RBC 3.00 L Hgb 8.7 L Hct 26.3 L MCV 87.6 MCH 28.9 MCHC 33.0 RDW 13.6 Plt Count 236 MPV 8.3 Neut % (Auto) Lymph % (Auto) [place] % (Auto) Eos % (Auto) Baso % (Auto) Neut # Lymph # [place] # Eos # Baso # Neutrophils % (Manual) Lymphocytes % (Manual) Monocytes % (Manual) Eosinophils % (Manual) Platelet Estimate Hypochromasia (manual) Poikilocytosis (manual Anisocytosis (manual) Target Cells Ovalocytes [place] Cells PT INR APTT pO2 VBG pH VBG pCO2 VBG HCO3 VBG Total CO2 VBG O2 Sat (Calc) VBG Base Excess VBG Potassium Glucose Lactate Sodium Potassium Chloride Carbon Dioxide Anion Gap BUN Creatinine Est GFR ( Amer) Est GFR (Non-Af Amer) POC Glucose (mg/dL) 224 H 159 H Random Glucose Hemoglobin A1c Calcium Iron TIBC % Saturation Triglycerides Cholesterol LDL Cholesterol Direct HDL Cholesterol Vitamin B12 Folate TSH 3rd Generation Venous Blood Potassium 01/31/17 01/31/17 07:15 07:15 WBC RBC Hgb Hct MCV MCH MCHC RDW Plt Count MPV Neut % (Auto) Lymph % (Auto) [place] % (Auto) Eos % (Auto) Baso % (Auto) Neut # Lymph # [place] # Eos # Baso # Neutrophils % (Manual) Lymphocytes % (Manual) Monocytes % (Manual) Eosinophils % (Manual) Platelet Estimate Hypochromasia (manual) Poikilocytosis (manual Anisocytosis (manual) Target Cells Ovalocytes [place] Cells PT 13.1 H INR 1.2 APTT pO2 VBG pH VBG pCO2 VBG HCO3 VBG Total CO2 VBG O2 Sat (Calc) VBG Base Excess VBG Potassium Glucose Lactate Sodium 140 Potassium 4.4 Chloride 104 Carbon Dioxide 21 L Anion Gap 19 BUN 22 H Creatinine 1.3 Est GFR ( Amer) > 60 Est GFR (Non-Af Amer) 54 POC Glucose (mg/dL) Random Glucose 116 H Hemoglobin A1c Calcium 8.4 L Iron TIBC % Saturation Triglycerides Cholesterol LDL Cholesterol Direct HDL Cholesterol Vitamin B12 Folate TSH 3rd Generation 0.41 L Venous Blood Potassium Assessment & Plan (1) Preop cardiovascular exam Status: Acute (2) HTN (hypertension) Status: Chronic (3) Dyslipidemia Status: Chronic (4) CAD (coronary artery disease) Status: Acute Attending/Attestation - Attestation I have personally seen and examined this patient.: Yes I have fully participated in the care of the patient.: Yes I have reviewed all pertinent clinical information: Yes Notes (Text): 01/31/17 08:23 As per ACC/AHA guidelines patient can proceed with planned surgery with low to intermediate risk for perioperative cardiac event
[2017-01-31 08:09] LABS: THYROID STIMULATING HORMONE 0.41 mIU/L (0.46-4.68)
[2017-01-31] MEDS: (Novolin R) Insulin Human Regular 100 units/ml vial SC SCH ×4 (08:15→22:46)
[2017-01-31] MEDS ORDERED: Bacitracin 50,000 UNIT in Sodium Chloride 0.9% Irrig 1,000 ML IR SCH (08:16)
[2017-01-31] MEDS ORDERED: Bupivacaine 0.5% Inj(30mL) ONE (09:00)
[2017-01-31] MEDS ORDERED: Lidocaine 2% Inj (20ml) ONE (09:00)
[2017-01-31] MEDS ORDERED: Midazolam 2 MG/2 ML VIAL ONE (09:01)
[2017-01-31] MEDS ORDERED: Lactated Ringer's 1,000 ML IV ONE (09:10)
[2017-01-31] MEDS ORDERED: Multiple Vitamins Tab PO SCH (10:00)
[2017-01-31] MEDS: GlipiZIDE 2.5 mg Tab PO SCH ×2 (10:02→18:00)
[2017-01-31] MEDS ORDERED: HYDROmorphone 0.5 mg/0.5 ml ISec IVP PRN (10:46)
--- NOTE | 2017-01-31 10:48 | PCM.SURG1 ---
Surgeon's Initial Post Op Note - Surgeon's Notes Surgeon: Dr. Lea DPM [employer] Principal: Dr. Adwoa Howell DPM PGY-2 Type of Anesthesia: MAC, Local Anesthesia Administered By: Dr. Fisher Pre-Operative Diagnosis: osteomyelitis of right hallux with cellulitis Operative Findings: see operative report Post-Operative Diagnosis: same Operation Performed: partial amputation of right hallux with incision and drainage Specimen/Specimens Removed: bone and soft tissue right hallux Estimated Blood Loss: EBL {In ML}: 5 Blood Products Given: N/A Drains Used: No Drains Post-Op Condition: Good Date of Surgery/Procedure: 01/31/17 Time of Surgery/Procedure: 09:10
[2017-01-31] MEDS ORDERED: Oxycodone/Acetaminophen 5/325 mg Tab PO PRN (12:44)
--- NOTE | 2017-01-31 13:52 | CP.PCM.PN ---
Subjective - Date & Time of Evaluation Date of Evaluation: 01/31/17 Time of Evaluation: 08:00 - Subjective Subjective: s/p amp right great toe tolerated well iv rx in progress Objective - Vital Signs/Intake and Output Vital Signs (last 24 hours): Temp Pulse Resp BP Pulse Ox 99 F 86 15 154/95 H 98 01/31/17 11:30 01/31/17 11:30 01/31/17 11:30 01/31/17 11:30 01/31/17 11:30 Intake and Output: 01/31/17 01/31/17 06:59 18:59 Intake Total 480 Output Total 800 Balance -320 - Medications Medications: Current Medications Acetaminophen (Tylenol 325mg Tab) 650 mg PO Q6 PRN PRN Reason: Pain, moderate (4-7) Glipizide (Glucotrol) 5 mg PO BID [facility] Last Admin: 01/31/17 10:02 Dose: Not Given Heparin Sodium (Porcine) (Heparin) 5,000 units SC BID [facility] Vancomycin HCl 1 gm/ Sodium (Chloride) 250 mls @ 166.7 mls/hr IVPB Q12 [facility] Last Admin: 01/31/17 10:03 Dose: Not Given Piperacillin Sod/Tazobactam (Sod 3.375 gm/ Sodium Chloride) 100 mls @ 200 mls/ hr IVPB Q6H [facility] Last Admin: 01/31/17 13:20 Dose: 200 mls/hr Sodium Chloride (Sodium Chloride 0.9%) 1,000 mls @ 60 mls/hr IV .[id number] [facility] Last Admin: 01/30/17 22:55 Dose: 60 mls/hr Ibuprofen (Motrin Tab) 600 mg PO Q6H [facility] Last Admin: 01/31/17 10:02 Dose: Not Given Insulin Human Regular (Novolin R) 0 unit SC ACHS [facility] PRN Reason: Protocol Last Admin: 01/31/17 11:30 Dose: Not Given Losartan Potassium (Cozaar) 50 mg PO DAILY [facility] Last Admin: 01/31/17 10:02 Dose: Not Given Metformin HCl (Glucophage) 500 mg PO BID [facility] Last Admin: 01/31/17 10:02 Dose: Not Given Multivitamins (Hexavitamin) 1 tab PO DAILY [facility] Last Admin: 01/31/17 10:02 Dose: Not Given Oxycodone/Acetaminophen (Percocet 5/325 Mg Tab) 1 tab PO Q6H PRN PRN Reason: Pain, severe (8-10) Stop: 02/03/17 12:45 Last Admin: 01/31/17 12:54 Dose: 1 tab Pregabalin (Lyrica) 75 mg PO DAILY [facility] Last Admin: 01/31/17 10:02 Dose: Not Given Rosuvastatin Calcium (Crestor) 2.5 mg PO HS [facility] Last Admin: 01/30/17 22:55 Dose: 2.5 mg - Labs Labs: 01/31/17 07:15 01/31/17 07:15 PT 13.1 SECONDS (9.7-12.2) H 01/31/17 07:15 INR 1.2 01/31/17 07:15 APTT 33 SECONDS (21-34) 01/30/17 13:17 - Constitutional Appears: Non-toxic, Chronically Ill - Head Exam Head Exam: NORMOCEPHALIC - Eye Exam Eye Exam: PERRL - ENT Exam ENT Exam: Mucous Membranes Dry - Neck Exam Neck Exam: absent: Lymphadenopathy - Respiratory Exam Respiratory Exam: Decreased Breath Sounds, Clear to Ausculation Bilateral - Cardiovascular Exam Cardiovascular Exam: REGULAR RHYTHM - GI/Abdominal Exam GI & Abdominal Exam: Distended, Soft - Rectal Exam Rectal Exam: Deferred - Exam Exam: NORMAL INSPECTION - Extremities Exam Extremities Exam: Pedal Edema, Tenderness - Back Exam Back Exam: absent: CVA tenderness (L), CVA tenderness (R) Assessment and Plan (1) Cellulitis Status: Acute (2) Osteomyelitis Status: Acute (3) Toe gangrene Status: Acute (4) Abscess of great toe Status: Acute (5) Diabetes mellitus Status: Chronic
--- NOTE | 2017-01-31 16:31 | RAD ---
PROCEDURE: Right Foot Radiographs. HISTORY: s/p right hallux amputation COMPARISON: January 30, 2017. Preoperative study FINDINGS: BONES: Status post amputation 1st digit. JOINTS: Normal. SOFT TISSUES: Postoperative soft tissue swelling. OTHER FINDINGS: None. IMPRESSION: Satisfactory postoperative status.
--- NOTE | 2017-01-31 18:29 | CP.PCM.PN ---
Subjective - Date & Time of Evaluation Date of Evaluation: 01/31/17 Time of Evaluation: 08:40 - Subjective Subjective: Podiatry Progress Note - Dr. Tate: 71 yo male seen at bedside in OR holding this morning for right lower ext cellulitis/diabetic foot infection with Dr. Tate present. Pt is seen resting comfortably in bed. Denies any acute events overnight, says foot pain is improved today. Denies f/n/v/c/sob/cp at this time. present at bedside. Pt and both aware of plan for partial amputation right hallux today. Pt says he is concerned about losing his big toe, also relates that he has not moved his bowels since this past Sunday and is requesting enema (says this has happened in past). Objective - Vital Signs/Intake and Output Vital Signs (last 24 hours): Temp Pulse Resp BP Pulse Ox 99 F 86 15 154/95 H 98 01/31/17 11:30 01/31/17 11:30 01/31/17 11:30 01/31/17 11:30 01/31/17 11:30 Intake and Output: 01/31/17 01/31/17 06:59 18:59 Intake Total 480 1220 Output Total 800 380 Balance -320 840 - Medications Medications: Current Medications Acetaminophen (Tylenol 325mg Tab) 650 mg PO Q6 PRN PRN Reason: Pain, moderate (4-7) Glipizide (Glucotrol) 5 mg PO BID [facility] Last Admin: 01/31/17 10:02 Dose: Not Given Heparin Sodium (Porcine) (Heparin) 5,000 units SC BID [facility] Vancomycin HCl 1 gm/ Sodium (Chloride) 250 mls @ 166.7 mls/hr IVPB Q12 [facility] Last Admin: 01/31/17 10:03 Dose: Not Given Piperacillin Sod/Tazobactam (Sod 3.375 gm/ Sodium Chloride) 100 mls @ 200 mls/ hr IVPB Q6H [facility] Last Admin: 01/31/17 13:20 Dose: 200 mls/hr Sodium Chloride (Sodium Chloride 0.9%) 1,000 mls @ 60 mls/hr IV .[id number] [facility] Last Admin: 01/30/17 22:55 Dose: 60 mls/hr Ibuprofen (Motrin Tab) 600 mg PO Q6H [facility] Last Admin: 01/31/17 10:02 Dose: Not Given Insulin Human Regular (Novolin R) 0 unit SC ACHS [facility] PRN Reason: Protocol Last Admin: 01/31/17 11:30 Dose: Not Given Losartan Potassium (Cozaar) 50 mg PO DAILY [facility] Last Admin: 01/31/17 10:02 Dose: Not Given Metformin HCl (Glucophage) 500 mg PO BID [facility] Last Admin: 01/31/17 10:02 Dose: Not Given Multivitamins (Hexavitamin) 1 tab PO DAILY [facility] Last Admin: 01/31/17 10:02 Dose: Not Given Oxycodone/Acetaminophen (Percocet 5/325 Mg Tab) 1 tab PO Q6H PRN PRN Reason: Pain, severe (8-10) Stop: 02/03/17 12:45 Last Admin: 01/31/17 12:54 Dose: 1 tab Pregabalin (Lyrica) 75 mg PO DAILY [facility] Last Admin: 01/31/17 10:02 Dose: Not Given Rosuvastatin Calcium (Crestor) 2.5 mg PO HS [facility] Last Admin: 01/30/17 22:55 Dose: 2.5 mg - Labs Labs: 01/31/17 07:15 01/31/17 07:15 PT 13.1 SECONDS (9.7-12.2) H 01/31/17 07:15 INR 1.2 01/31/17 07:15 APTT 33 SECONDS (21-34) 01/30/17 13:17 - Constitutional Appears: Non-toxic, No Acute Distress - Extremities Exam Extremities Exam: absent: Calf Tenderness Additional comments: RLE exam: Dressing to hallux appears c/d/i VASCULAR- DP/PT pulses are faintly palpable, skin temp runs warm to warm (with increased calor noted to anterior leg and hallux), cap refill < 3 sec to all digits, 3+ pitting edema noted to anterior legs and dorsum of feet bl (severe edema noted to right hallux) NEURO- pedal sensation is grossly diminished DERM- there is a full thickness ulceration noted to distal aspect of hallux measures approximately 0.5x0.5 x0.4 cm with mixed fibrogranular base and macerated border, wound does appear to probe to bone today, no tracking, digit does feel fluctuant, there is javier-wound erythema noted erythema begins mid- leg and extends circumferentially to distal foot (appears to be resolving somewhat) ORTHO- no gross deformities seen. - Neurological Exam Neurological Exam: Alert, Awake - Psychiatric Exam Psychiatric exam: Normal Affect, Normal Mood Assessment and Plan - Assessment and Plan (Free Text) Assessment: 71 yo male patient with ulceration and +OM right hallux 2/2 diabetic neuropathy Plan: Pt S&E at bedside with Dr. Tate Chart, labs and vitals reviewed: afebrile, WBC trending down 12.7 (down from 15.7) Wound cx (01/30): gram neg nat x2 organisms (preliminary) Per cardiology (Dr. Jaimes) pt is low to intermediate risk for periop cardiac event. Recs appreciated NPO status confirmed No guarantees given nor implied Consent in chart Discussed with patient and of importance of strict NWB to the amputation site following surgery and patient in agreement with plan To OR this morning with Dr. Tate for partial amputation R hallux with incision and drainage Will follow closely on the floors
[2017-01-31] MEDS ORDERED: Sodium Chloride 0.9% 1,000 ML IV SCH ×3 (18:51→20:30)
--- NOTE | 2017-01-31 18:56 | PCM.ANES ---
Anesthesia Emergent Intubation - Diagnosis Working Diagnosis:: respiratory failure - Consult Reason for Consult:: emergent intubation - Intubation Attempts Previous Number of Intubation Attempts:: 0 ( X1 Bassem SHEPPARD) By:: bassem sheppard - Pre-Intubation Vital Signs Blood Pressure: 150/100 Heart Rate: 150 Respiratory Rate: 42 O2 Sat: 88 FIO2: 100 Oxygen Delivery Method: Ambu-Bag Level Of Consciousness: Somnolent Intubation Meds Given: Etomidate, Succinylcholine - Airway Management Oropharyngeal Area Suctioned: Yes Inhalation: No Rapid Sequence: Yes Cricoid Pressure: Yes (dr oneal) Possible Aspiration: No - Method of Intubation Intubation Method: Oral ETT ETT Size: 7.5 Lipline@: 21 Easy: Yes Atramatic: Yes - Placement Confirmation Breath Sounds Present & Equal Bilaterally: Yes Gurgling Sounds Not Audible at Epigastrum: Yes Positive EtCO2: Yes Portable CXR: Yes Recommendations: Ventilator, Chest X Ray - Post-Intubation Vital Signs Blood Pressure: 140/85 Heart Rate: 99 Respiratory Rate: 18 O2 Sat: 96 FIO2: 100
[2017-01-31] MEDS ORDERED: Nitroglycerin 50mg in D5W 50 MG/250 ML BOTTLE IV SCH (19:15)
--- NOTE | 2017-01-31 19:15 | PCM.RRT ---
<JustinoAshely - Last Filed: 01/31/17 19:12> [facility] Nurses Assessment - Situation Date: 01/31/17 Time [facility] was called: 18:35 [facility] Responder Arrival Time:: 18:35 [facility] Location:: 3T Med/Oncology - IV IV Inserted during [facility]?: No - Respiratory [facility] Delivery Method: Non Rebreather @% (saturating 53%-65%), Intubated ( saturating 98%-100%) Secretions Suctioned?: Yes Was the Patient Intubated?: Yes Was the Patient Placed on a Ventilator?: Yes - Ventilator Settings Mode: PRVC Ventilator Respiratory Rate Settin Ventilator Tidal Volume Settin PEEP/CPAP (cm H2O): 5 FIO2 (% Oxygen): 100 - Medication Medications Administered During [facility]: succinate. propofol. ativan. morphine. lasix. nitroglycerin drip - Diagnostic Test Ordered Chest X-Ray: Yes - Stat Labs Ordered [facility] Stat Labs Ordered: ABG CPR started during [facility]?: No - Vital Signs Vital Signs: 154/95 150bpm Saturating at 53% - Jeannie Coma Scale Coma Scale Eye Opening: Spontaneous Coma Scale Motor: Obeys Commands Movement Coma Scale Verbal: Oriented Coma Scale Total: 15 - Recommendations 5) [facility] Level of Care Recommendations: Transfer to ICU Notifications: Attending Physician - Neurological Status (Select all that apply): Alert, Responsive - Respiratory Oxygen Delivery Method: Non Rebreather @%, Intubated - Constitutional Appears: In Acute Distress - Head Head Exam: NORMAL INSPECTION - Eyes Eye Exam: EOMI, Normal appearance - Respiratory Exam Respiratory Exam: Accessory Muscle Use, Rales, Respiratory Distress. absent: Rhonchi Additional comments: agonal breathing - Cardiovascular Exam Cardiovascular Exam: Tachycardia, +S1, +S2 - GI/Abdominal Exam GI & Abdominal Exam: Soft. absent: Tenderness, Rebound - Neurological Exam Neurological Exam: Alert, Awake - Extremities Exam Additional comments: patient had right toe amputation, with dressing covering the wound (c/d/i) no pedal edema or leg edema noted. no saturating of dressing Plan - Assessment of Findings&Treatment Plan continue ventilation per respiratory team/ICU team lasix for fluid overload monitor patient's vitals <Felisha Tinajero V - Last Filed: 02/01/17 09:27> [facility] Nurses Assessment - Vital Signs Vital Signs: Rapid Response Vital Sign Blood Pressure 150/100 Pulse Rate 150 Respiratory Rate 42 Temperature 98.6 F Oxygen Saturation 88 - Vital Signs at end of [facility] Vital Signs at end of [facility]: Rapid Response End Vital Sign Blood Pressure 150/99 Pulse Rate 148 Respiratory Rate 40 Temperature 98.4 F O2 Sat by Pulse Oximetry 90 Attending/Attestation - Attestation I have personally seen and examined this patient.: Yes I have fully participated in the care of the patient.: Yes I have reviewed all pertinent clinical information, including history, physical exam and plan: Yes Notes (Text): This is late computer entry for 01/31/17. Brief Hospitalist Note: Responded to [facility] with [facility] team. Patient seen in acute respiratory distress, agonal, belly breathing. Patient saturating as low 53% Oxygen and tachycardia . Decision made to intubate the patient. Anesthesia and Critical Care at bedside. Patient intubated by anesthesia at bedside. Ordered for portable chest xray. Patient is POD#0 left hallux amputation, had eaten dinner prior to event, witnessed by he was in acute respiratory distress. Patient transferred to the ICU from [facility]. Further management per ICU. I spoke briefly to patient's who was at bedside.
--- NOTE | 2017-01-31 19:21 | PN ---
The patient was seen at bedside concerning ambulation on a surgery which I performed this morning. Stressed the need for off weightbearing and not to walk on this new surgical site. The patient understands; however, is combative, and he is hitting nurses and his , so hopefully my message will be conveyed in an appropriate manner. We will change the dressing in the a.m. to see whether or not he disrupted the surgical site. Adrian Zamudio DPM
[2017-01-31] MEDS ORDERED: Propofol 10 mg/ml 1,000 MG/100 ML VIAL IV PRN (19:34)
[2017-01-31] MEDS: Rosuvastatin Calcium 2.5 mg Tab PO SCH (22:41)
[2017-01-31 22:44] LABS: ABG ALLEN TEST POS; ABG MECHANICAL RATE 18; ARTERIAL BLOOD GAS MODE A/C; ARTERIAL BLOOD HGB O2 SAT 97.6 % (95.0-98.0); ATERIAL BLOOD GAS PEEP 5; CARBOXYHEMOGLOBIN 0.8 % (0.5-1.5); DRAW SITE RRA; HHB 1.2 % (0.0-5.0); METHEMOGLOBIN 0.4 % (0.0-3.0)
[2017-02-01] MEDS: Piperacillin/Tazobact 3.375 GM in Sodium Chloride 100 ML IVPB SCH ×4 (01:47→20:30)
[2017-02-01 05:46] LABS: ABG ALLEN TEST POS; ABG MECHANICAL RATE 18; ARTERIAL BLOOD GAS MODE PRVC; ARTERIAL BLOOD HGB O2 SAT 95.8 % (95.0-98.0); ATERIAL BLOOD GAS PEEP 5; CARBOXYHEMOGLOBIN 0.5 % (0.5-1.5); DRAW SITE RR; HHB 2.3 % (0.0-5.0); METHEMOGLOBIN 1.3 % (0.0-3.0)
[2017-02-01 06:31] LABS: BASO # 0.1 K/uL (0.0-0.2); BASO % 0.4 % (0.0-2.0); EOS % 0.1 % (0.0-4.0); HEMATOCRIT 26.8 % (35.0-51.0); LYMPH # 1.3 K/uL (1.0-4.3); LYMPH % 8.4 % (20.0-40.0); MEAN CELL VOLUME 87.6 fL (80.0-94.0); MEAN CORPUSCULAR HEMOGLOBIN 29.1 pg (27.0-31.0); MEAN CORPUSCULAR HGB CONC 33.2 g/dL (33.0-37.0); MEAN PLATELET VOLUME 8.7 fL (7.2-11.7); MONO # 1.4 K/uL (0.0-0.8); MONO % 9.3 % (0.0-10.0); PLATELET COUNT 259 K/uL (130-400); RED CELL DISTRIBUTION WIDTH 13.5 % (11.5-14.5); WHITE BLOOD COUNT 15.4 K/uL (4.8-10.8)
[2017-02-01 06:43] LABS: ALB/GLOB RATIO 0.9 (1.0-2.1); BILIRUBIN,TOTAL 0.8 mg/dL (0.2-1.3); CALCIUM 8.5 mg/dl (8.6-10.4); MAGNESIUM 1.5 mg/dL (1.6-2.3); PHOSPHOROUS 5.1 mg/dL (2.5-4.5); POTASSIUM 4.6 mmol/L (3.6-5.2); TOTAL PROTEIN 6.2 g/dL (6.3-8.3)
[2017-02-01] MEDS: (Novolin R) Insulin Human Regular 100 units/ml vial SC SCH ×3 (07:53→18:18)
[2017-02-01 08:22] LABS: NEUTROPHIL 84 % (50-75); TOTAL CELLS COUNTED 100
[2017-02-01 08:23] LABS: LARGE PLATELETS PRESENT
[2017-02-01] MEDS: GlipiZIDE 2.5 mg Tab PO SCH ×2 (10:49→17:08)
--- NOTE | 2017-02-01 11:07 | CP.PCM.PN ---
Subjective - Date & Time of Evaluation Date of Evaluation: 02/01/17 Time of Evaluation: 10:00 - Subjective Subjective: Podiatry Progress Note - Dr. Tate: This is a 71 yo male patient seen at bedside in the ICU this morning with Dr. Tate present POD#1 partial amputation right hallux. Overnight events reviewed, pt had been non-compliant with bedrest instructions and ambulated on the right foot after multiple attempts by nursing and Dr. Tate to remain in bed. Pt had become agitated and was yelling at nurse and pt's . Last evening pt developed respiratory distress, WEATHERIZATION ADMINISTRATOR called and decision made to intubate pt and transfer to ICU. Pt is seen intubated today, appears lethargic however is awake and alert, NAD, responds to verbal questioning with head nod/ shake. Is able to move both legs and arms. is present at bedside. Objective - Vital Signs/Intake and Output Vital Signs (last 24 hours): Temp Pulse Resp BP Pulse Ox 98.5 F 96 H 19 125/65 100 01/31/17 19:40 02/01/17 09:20 02/01/17 09:20 02/01/17 09:03 02/01/17 09:20 Intake and Output: 02/01/17 02/01/17 06:59 18:59 Intake Total 817.2 191.4 Output Total 1420 170 Balance -602.8 21.4 - Medications Medications: Current Medications Acetaminophen (Tylenol 325mg Tab) 650 mg PO Q6 PRN PRN Reason: Pain, moderate (4-7) Glipizide (Glucotrol) 5 mg PO BID [facility] Last Admin: 02/01/17 10:49 Dose: Not Given Heparin Sodium (Porcine) (Heparin) 5,000 units SC BID [facility] Last Admin: 01/31/17 18:00 Dose: 5,000 units Vancomycin HCl 1 gm/ Sodium (Chloride) 250 mls @ 166.7 mls/hr IVPB Q12 [facility] Last Admin: 02/01/17 10:48 Dose: 166.7 mls/hr Piperacillin Sod/Tazobactam (Sod 3.375 gm/ Sodium Chloride) 100 mls @ 200 mls/ hr IVPB Q6H [facility] Last Admin: 02/01/17 07:55 Dose: 200 mls/hr Sodium Chloride (Sodium Chloride 0.9%) 1,000 mls @ 30 mls/hr IV .Q24H [facility] Last Admin: 01/31/17 18:55 Dose: 30 mls/hr Nitroglycerin/Dextrose (Nitroglycerin 50 Mg/250 Ml D5w) 50 mg in 250 mls @ 1.5 mls/hr IV .Q24H [facility]; 5 MCG/MIN PRN Reason: Protocol Last Admin: 01/31/17 22:24 Dose: Not Given Propofol (Diprivan) 1,000 mg in 100 mls @ 3.81 mls/hr IV .Q24H PRN; Protocol; 5 MCG/KG/MIN PRN Reason: TITRATE PER MD ORDER Last Titration: 02/01/17 10:41 Dose: 10 mcg/kg/min, 7.62 mls/hr Sodium Chloride (Sodium Chloride 0.9%) 1,000 mls @ 50 mls/hr IV .Q20H [facility] Last Admin: 01/31/17 20:00 Dose: 50 mls/hr Insulin Human Regular (Novolin R) 0 unit SC Q6H [facility] PRN Reason: Protocol Losartan Potassium (Cozaar) 50 mg PO DAILY [facility] Last Admin: 02/01/17 10:48 Dose: 50 mg Oxycodone/Acetaminophen (Percocet 5/325 Mg Tab) 1 tab PO Q6H PRN PRN Reason: Pain, severe (8-10) Stop: 02/03/17 12:45 Last Admin: 01/31/17 12:54 Dose: 1 tab Pantoprazole Sodium (Protonix Inj) 40 mg IVP DAILY [facility] Last Admin: 02/01/17 10:48 Dose: 40 mg Rosuvastatin Calcium (Crestor) 2.5 mg PO HS [facility] Last Admin: 01/31/17 22:41 Dose: Not Given - Labs Labs: 02/01/17 06:26 02/01/17 06:19 PT 13.1 SECONDS (9.7-12.2) H 01/31/17 07:15 INR 1.2 01/31/17 07:15 APTT 33 SECONDS (21-34) 01/30/17 13:17 - Constitutional Appears: Non-toxic, No Acute Distress - Extremities Exam Additional comments: RLE exam: Dressing appears c/d/i. offloading heel cushions noted to be applied to both feet VASC- DP/PT pulses are palpable, skin temp runs warm to warm (with some decrease in callor today), cap refill < 3sec to digits 2-5 and also to amputation site, minimal edema NEURO- pedal sensation diminished (sharp touch intact) DERM- distal aspect of hallux amputation stump appears well coapted, no dehisence of sutures, minimal drainage, erythema to leg and dorsal foot appear to be resolving, no malodor, no fluctuance ORTHO-s/p partial amputation of hallux - Neurological Exam Neurological Exam: Alert, Awake - Psychiatric Exam Additional comments: unable to assess Assessment and Plan - Assessment and Plan (Free Text) Assessment: 71 yo male patient with ulceration and +OM right hallux 2/2 diabetic neuropathy POD #1 partial amputation right hallux Plan: Pt S&E at bedside with Dr. Tate present Chart, labs and vitals reviewed: afebrile, wbc elevated today 15.4 Surgical site redressed w/ xeroform, DSD Offloading boot reapplied to right foot Discussed with pt and he is to remain completely NWB to the lower extremities, do not want to risk dehisence if he stands up in near future Stable per podiatry Will follow closely
[2017-02-01] MEDS ORDERED: Albumin Human 5% (12.5 gm/250 ml) IV ONE (12:30)
--- NOTE | 2017-02-01 12:38 | HP ---
CHIEF COMPLAINT: Foot pain. HISTORY OF PRESENT ILLNESS: Mr. Alber Vicente is a 71-year-old male, who came to the emergency room for evaluation of new-onset color change to the right foot. The patient states that he is currently receiving outpatient antibiotic treatment for the right foot osteomyelitis for the past 5 weeks and is asked to follow up with Dr. Zamudio last week and was advised he has an infected end of the bone in the first toe. Family said he is awaiting for us to make the decision of the amputation. The patient states that his changes the dressing daily. The patient also reports that he is status post right lower extremity with balloon angioplasty on 12/24/[address] Martinez. The patient denies fever, chills, chest pain, palpitation, shortness of breath. No headache, no dizziness, but has color change on the foot, looks like osteomyelitis. PAST MEDICAL HISTORY: Arthritis, hypertension, peripheral edema, now for couple of weeks having pain in the foot. FAMILY HISTORY: Father and mother, noncontributory. HABITS: No smoking, no drugs, no ethanol. REVIEW OF SYSTEMS: The patient was seen and examined on the bedside and looking comfortable early in the morning. No nausea, vomiting, or diarrhea. No hematochezia. No headache, no dizziness. No chest pain and no palpitation. ALLERGIES: THE PATIENT IS NOT ALLERGIC WITH ANY MEDICATION. PHYSICAL EXAMINATION VITAL SIGNS: Temperature 98.5, pulse 110, blood pressure 91/55, respiratory rate 18, oxygen saturation 100%. HEENT: Head is normocephalic and atraumatic. Eyes, PERRLA. Extraocular muscles are intact. Conjunctivae clear. Nose patent. Mucous membranes moist. NECK: Supple. No carotid bruit, JVD, or thyromegaly. CHEST: Bilaterally symmetrical. HEART: S1 and S2 positive. LUNGS: Clear to auscultation. ABDOMEN: Soft. Bowel sounds present. No organomegaly. EXTREMITIES: No edema, no cyanosis. Ulcer of right foot one toe with cellulitis. LABORATORY DATA: White blood cells 12.7, hemoglobin 8.7, hematocrit 26.3, and platelets 263. Sodium 140, potassium 4.4, BUN 22, creatinine 1.3, glucose 242 and 147, calcium 8.4, TSH 0.41. ASSESSMENT AND PLAN: Mr. Alber Vicente is a 71-year-old male with uncontrolled diabetes mellitus, hypocalcemia, rule out hyperthyroidism. Leukocytosis improved on admission, while it was 15.7, it became 12.7. Hemoglobin dropped 1 g but still we are giving injection. The patient failed outpatient treatment for osteomyelitis of the foot. The patient was admitted for surgery according to Podiatry. The patient needs to off the stress, weightbearing, and not to walk on the new surgical site. The patient understands, however, he is combative and he is hitting the nurses and his . The patient became better. There was rapid response after surgery. I was informed. The patient was intubated and transferred to the unit and continued on ventilation as per respiratory team. fluid overload, monitoring the patient's vitals. Gastrointestinal and deep venous thrombosis prophylaxes. Just came back from right toe amputation. We will continue present treatment. Discussion done with nursing staff and we will follow. Zuleima Jackson MD MTDD
[2017-02-01] MEDS: Magnesium Sulfate 1 gm in D5W 1 GM/100 ML BAG IVPB SCH ×2 (12:56→13:45)
[2017-02-01] MEDS: Midazolam 2 MG/2 ML VIAL IVP PRN (13:48)
[2017-02-01 13:59] LABS: TROPONIN I 27.7 ng/mL (0.00-0.120)
[2017-02-01] MEDS: Heparin25000 units/250ml 1/2NS 25,000 UNITS/250 ML BAG IV PRN (16:39)
--- NOTE | 2017-02-01 16:56 | RAD ---
HISTORY: SOB, intubation COMPARISON: Comparison is made to 01/30/2017 FINDINGS: LUNGS: Interval appearance of diffuse hazy opacities in the lungs since the previous exam. The differential diagnosis includes acute respiratory distress syndrome or pulmonary edema. Line the ET tube is seen at appropriate position. PLEURA: No evidence of significant pleural effusion. CARDIOVASCULAR: The cardiac silhouette is mildly enlarged P OSSEOUS STRUCTURES: No significant abnormalities. VISUALIZED UPPER ABDOMEN: Normal. OTHER FINDINGS: None. IMPRESSION: New diffuse hazy opacities in the lungs may represent pulmonary edema or ARDS. Appropriate position of the ETT and right PICC line. Preliminary report was submitted by virtual Radiology.
--- NOTE | 2017-02-01 17:03 | RAD ---
HISTORY: intubated COMPARISON: Comparison is made to 01/31/2017 FINDINGS: LUNGS: Interval improvement in the previously seen diffuse hazy opacities in the lungs. Appropriate position of the NG tube and ET tube. PLEURA: No significant pleural effusion identified, no pneumothorax apparent. CARDIOVASCULAR: The cardiac silhouette is mildly enlarged. OSSEOUS STRUCTURES: No significant abnormalities. VISUALIZED UPPER ABDOMEN: Normal. OTHER FINDINGS: None. IMPRESSION: Interval improvement in the lungs since the previous last exam. Appropriate position of the support devices.
--- NOTE | 2017-02-01 18:40 | CP.PCM.PN ---
Subjective - Date & Time of Evaluation Date of Evaluation: 02/01/17 Time of Evaluation: 07:00 - Subjective Subjective: Pt is seen intubated today, appears lethargic however is awake and alert, NAD, responds to verbal questioning with head nod/shake. Is able to move both legs and arms. Objective - Vital Signs/Intake and Output Vital Signs (last 24 hours): Temp Pulse Resp BP Pulse Ox 98.5 F 95 H 20 158/80 H 100 01/31/17 19:40 02/01/17 18:03 02/01/17 18:03 02/01/17 18:03 02/01/17 18:03 Intake and Output: 02/01/17 02/01/17 06:59 18:59 Intake Total 817.2 1061.4 Output Total 1420 990 Balance -602.8 71.4 - Medications Medications: Current Medications Acetaminophen (Tylenol 325mg Tab) 650 mg PO Q6 PRN PRN Reason: Pain, moderate (4-7) Clopidogrel Bisulfate (Plavix) 75 mg PO DAILY [facility] Clopidogrel Bisulfate (Plavix) 300 mg PO DAILY [facility] Glipizide (Glucotrol) 5 mg PO BID [facility] Last Admin: 02/01/17 17:08 Dose: Not Given Piperacillin Sod/Tazobactam (Sod 3.375 gm/ Sodium Chloride) 100 mls @ 200 mls/ hr IVPB Q6H [facility] Last Admin: 02/01/17 13:45 Dose: 200 mls/hr Sodium Chloride (Sodium Chloride 0.9%) 1,000 mls @ 30 mls/hr IV .Q24H [facility] Last Admin: 01/31/17 18:55 Dose: 30 mls/hr Nitroglycerin/Dextrose (Nitroglycerin 50 Mg/250 Ml D5w) 50 mg in 250 mls @ 1.5 mls/hr IV .Q24H [facility]; 5 MCG/MIN PRN Reason: Protocol Last Admin: 01/31/17 22:24 Dose: Not Given Heparin Sodium/Sodium Chloride (Heparin 14275 Units/250ml 1/2 Normal Saline) 25 ,000 units in 250 mls @ 15.24 mls/hr IV .[id number] PRN; Protocol; 12 UNITS/KG/HR PRN Reason: PROTOCOL Last Admin: 02/01/17 16:39 Dose: 12 units/kg/hr, 15.24 mls/hr Insulin Human Regular (Novolin R) 0 unit SC Q6H [facility] PRN Reason: Protocol Last Admin: 02/01/17 18:18 Dose: Not Given Losartan Potassium (Cozaar) 50 mg PO DAILY [facility] Last Admin: 02/01/17 10:48 Dose: 50 mg Metoprolol Tartrate (Lopressor) 25 mg PO BID [facility] Midazolam HCl (Versed Inj) 2 mg IVP Q4H PRN PRN Reason: Agitation Last Admin: 02/01/17 13:48 Dose: 2 mg Oxycodone/Acetaminophen (Percocet 5/325 Mg Tab) 1 tab PO Q6H PRN PRN Reason: Pain, severe (8-10) Stop: 02/03/17 12:45 Last Admin: 01/31/17 12:54 Dose: 1 tab Pantoprazole Sodium (Protonix Inj) 40 mg IVP DAILY [facility] Last Admin: 02/01/17 10:48 Dose: 40 mg Rosuvastatin Calcium (Crestor) 2.5 mg PO HS [facility] Last Admin: 01/31/17 22:41 Dose: Not Given - Labs Labs: 02/01/17 06:26 02/01/17 06:19 PT 13.1 SECONDS (9.7-12.2) H 01/31/17 07:15 INR 1.2 01/31/17 07:15 APTT 33 SECONDS (21-34) 02/01/17 14:56 - Constitutional Appears: Non-toxic, Chronically Ill - Head Exam Head Exam: NORMOCEPHALIC - Eye Exam Eye Exam: PERRL - ENT Exam ENT Exam: Mucous Membranes Dry - Neck Exam Neck Exam: absent: Lymphadenopathy - Respiratory Exam Respiratory Exam: Decreased Breath Sounds - GI/Abdominal Exam GI & Abdominal Exam: Distended, Soft - Rectal Exam Rectal Exam: Deferred - Exam Exam: NORMAL INSPECTION - Extremities Exam Extremities Exam: absent: Pedal Edema - Back Exam Back Exam: absent: CVA tenderness (L), CVA tenderness (R) - Neurological Exam Neurological Exam: Alert, Awake, Oriented x3 - Psychiatric Exam Psychiatric exam: Normal Mood - Skin Skin Exam: Dry Assessment and Plan (1) Cellulitis Status: Acute (2) Osteomyelitis Status: Acute (3) Toe gangrene Status: Acute (4) Abscess of great toe Status: Acute (5) Diabetes mellitus Status: Chronic
--- NOTE | 2017-02-01 19:02 | CP.PCM.PN ---
Subjective - Date & Time of Evaluation Date of Evaluation: 02/01/17 Time of Evaluation: 19:00 - Subjective Subjective: post op ACCESS SERVICES REPRESENTATIVE called and patient intubated TnI +Ve , now trending down patient intubated but awake and responsive BP and HR stable Objective - Vital Signs/Intake and Output Vital Signs (last 24 hours): Temp Pulse Resp BP Pulse Ox 98.5 F 95 H 20 158/80 H 100 01/31/17 19:40 02/01/17 18:03 02/01/17 18:03 02/01/17 18:03 02/01/17 18:03 Intake and Output: 02/01/17 02/01/17 06:59 18:59 Intake Total 817.2 1061.4 Output Total 1420 990 Balance -602.8 71.4 - Medications Medications: Current Medications Acetaminophen (Tylenol 325mg Tab) 650 mg PO Q6 PRN PRN Reason: Pain, moderate (4-7) Clopidogrel Bisulfate (Plavix) 75 mg PO DAILY [facility] Famotidine (Pepcid) 20 mg IVP DAILY [facility] Glipizide (Glucotrol) 5 mg PO BID [facility] Piperacillin Sod/Tazobactam (Sod 3.375 gm/ Sodium Chloride) 100 mls @ 200 mls/ hr IVPB Q6H [facility] Last Admin: 02/01/17 13:45 Dose: 200 mls/hr Sodium Chloride (Sodium Chloride 0.9%) 1,000 mls @ 30 mls/hr IV .Q24H [facility] Last Admin: 01/31/17 18:55 Dose: 30 mls/hr Nitroglycerin/Dextrose (Nitroglycerin 50 Mg/250 Ml D5w) 50 mg in 250 mls @ 1.5 mls/hr IV .Q24H [facility]; 5 MCG/MIN PRN Reason: Protocol Last Admin: 01/31/17 22:24 Dose: Not Given Heparin Sodium/Sodium Chloride (Heparin 04489 Units/250ml 1/2 Normal Saline) 25 ,000 units in 250 mls @ 15.24 mls/hr IV .[id number] PRN; Protocol; 12 UNITS/KG/HR PRN Reason: PROTOCOL Last Admin: 02/01/17 16:39 Dose: 12 units/kg/hr, 15.24 mls/hr Insulin Human Regular (Novolin R) 0 unit SC Q6H [facility] PRN Reason: Protocol Last Admin: 02/01/17 18:18 Dose: Not Given Losartan Potassium (Cozaar) [address] [facility] Last Admin: 02/01/17 10:48 Dose: 50 mg Metoprolol Tartrate (Lopressor) [address] [facility] Midazolam HCl (Versed Inj) 2 mg IVP Q4H PRN PRN Reason: Agitation Last Admin: 02/01/17 13:48 Dose: 2 mg Oxycodone/Acetaminophen (Percocet 5/325 Mg Tab) 1 tab PO Q6H PRN PRN Reason: Pain, severe (8-10) Stop: 02/03/17 12:45 Last Admin: 01/31/17 12:54 Dose: 1 tab Rosuvastatin Calcium (Crestor) 2.[address] [facility] Last Admin: 01/31/17 22:41 Dose: Not Given - Labs Labs: 02/01/17 06:26 02/01/17 06:19 PT 13.1 SECONDS (9.7-12.2) H 01/31/17 07:15 INR 1.2 01/31/17 07:15 APTT 33 SECONDS (21-34) 02/01/17 14:56 - Constitutional Appears: Well, Agitated - Head Exam Head Exam: ATRAUMATIC, NORMAL INSPECTION, NORMOCEPHALIC - Eye Exam Eye Exam: EOMI, Normal appearance, PERRL Pupil Exam: NORMAL ACCOMODATION, PERRL - ENT Exam ENT Exam: Mucous Membranes Moist, Normal Exam - Neck Exam Neck Exam: Full ROM, Normal Inspection. absent: Lymphadenopathy - Respiratory Exam Respiratory Exam: Clear to Ausculation Bilateral, Rales, NORMAL BREATHING PATTERN - Cardiovascular Exam Cardiovascular Exam: REGULAR RHYTHM, +S1, +S2, Murmur - GI/Abdominal Exam GI & Abdominal Exam: Soft, Normal Bowel Sounds. absent: Tenderness - Extremities Exam Extremities Exam: Full ROM, Normal Capillary Refill, Normal Inspection. absent : Joint Swelling, Pedal Edema - Back Exam Back Exam: NORMAL INSPECTION - Neurological Exam Neurological Exam: Alert, Awake, CN II-XII Intact - Psychiatric Exam Psychiatric exam: Normal Affect, Normal Mood - Skin Skin Exam: Dry, Intact, Normal Color, Warm Assessment and Plan (1) NSTEMI (non-ST elevated myocardial infarction) Assessment & Plan: keep pt on IV heparin gtt Load with plavix 300mg po x 1 today asa 325mg po daily BB low dose statins plan for LHCx once patient more stable repeat echo to assess LVEF Status: Acute (2) HTN (hypertension) Assessment & Plan: Bp stable keep pt on BB Status: Chronic (3) Dyslipidemia Assessment & Plan: statins Status: Chronic (4) CAD (coronary artery disease) Status: Acute
--- NOTE | 2017-02-01 19:10 | CP.CCUPN ---
<Marni Barr E - Last Filed: 02/01/17 19:24> CCU Subjective - Physician Review Subjective (Free Text): Patient was seen and examined at bedside. Patient was intubated, therefore, unable to evaluate ROS. Patient's was at bedside. 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 partial amputation POD# 1 CCU Objective - Vital Signs / Intake & Output Vital Signs (Last 4 hours): Vital Signs Pulse Resp BP Pulse Ox 02/01/17 18:03 95 H 20 158/80 H 100 02/01/17 18:00 96 H 17 100 02/01/17 17:03 96 H 21 155/76 H 100 02/01/17 17:00 98 H 16 100 02/01/17 16:03 93 H 21 127/61 100 02/01/17 16:00 95 H 22 100 Intake and Output (Last 8hrs): Intake & Output 02/01/17 02/01/17 02/01/17 06:59 14:59 22:59 Intake Total 542.2 939.2 122.2 Output Total 1240 490 500 Balance -697.8 449.2 -377.8 Weight 279 lb 15.793 oz Intake: IV 30 Intake, IV Amount 542.2 859.2 122.2 Left Hand 22.2 Right Hand 250 800 50 Right PICC 292.2 59.2 50 Oral 50 0 Output: Gastric Amount 700 Stomach 700 Urine 540 490 500 Urethral (Carr) 540 490 500 Other: # Bowel Movements 0 0 - Physical Exam Head: Positive for: Atraumatic, Normocephalic Pupils: Negative for: PERRL Extroacular Muscles: Negative for: EOMI Respiratory/Chest: Positive for: Clear to Auscultation Cardiovascular: Positive for: Regular Rate and Rhythm, Normal S1, S2 Abdomen: Positive for: Distention, Normal Bowel Sounds. Negative for: Tenderness Skin: Positive for: Warm Psychiatric: Negative for: Alert, Oriented x 3 - Medications Active Medications: Active Medications Generic Name Dose Route Start Last Admin Trade Name Freq PRN Reason Stop Dose Admin Acetaminophen 650 mg 01/30/17 15:56 Tylenol 325mg Tab PO Q6 PRN Pain, moderate (4-7) Clopidogrel Bisulfate 75 mg 02/02/17 10:00 Plavix PO DAILY [facility] Famotidine 20 mg 02/02/17 10:00 Pepcid IVP DAILY [facility] Glipizide 5 mg 02/02/17 10:00 Glucotrol PO BID [facility] Piperacillin Sod/Tazobactam 100 mls @ 200 mls/hr 01/30/17 13:30 02/01/17 13: 45 Sod 3.375 gm/ Sodium Chloride IVPB 200 mls/hr Q6H [facility] Administration Sodium Chloride 1,000 mls @ 30 mls/hr 01/31/17 18:51 01/31/17 18:55 Sodium Chloride 0.9% IV 30 mls/hr .Q24H [facility] Administration Nitroglycerin/Dextrose 50 mg in 250 mls @ 1.5 mls/hr 01/31/17 19:15 01/31/17 22:24 Nitroglycerin 50 Mg/250 Ml D5w IV Not Given .Q24H [facility] Protocol 5 MCG/MIN Heparin Sodium/Sodium Chloride 25,000 units in 250 mls @ 15.24 mls/hr 16:00 02/01/17 16:39 Heparin 69647 Units/250ml 1/2 Normal Saline IV 12 units/kg/hr .[id number] PRN 15.24 mls/hr PROTOCOL Administration Protocol 12 UNITS/KG/HR Insulin Human Regular 0 unit 02/01/17 12:00 02/01/17 18:18 Novolin R SC Not Given Q6H [facility] Protocol Losartan Potassium 50 mg 01/30/17 16:30 02/01/17 10:48 Cozaar PO 50 mg DAILY [facility] Administration Metoprolol Tartrate 25 mg 02/02/17 10:00 Lopressor PO Q12 [facility] Midazolam HCl 2 mg 02/01/17 13:28 02/01/17 13:48 Versed Inj IVP 2 mg Q4H PRN Administration Agitation Oxycodone/Acetaminophen 1 tab 01/31/17 12:44 01/31/17 12:54 Percocet 5/325 Mg Tab PO 02/03/17 12:45 1 tab Q6H PRN Administration Pain, severe (8-10) Rosuvastatin Calcium 2.5 mg 01/30/17 22:30 01/31/17 22:41 Crestor PO Not Given HS [facility] - Patient Studies Lab Studies: Microbiology Studies 01/30/17 08:15 Gram Stain - Final Toe Wound Culture - Preliminary Proteus Mirabilis Gram Negative Lee#2 01/30/17 07:55 Blood Culture - Preliminary Blood NO GROWTH AFTER 48 HOURS 01/30/17 08:10 Blood Culture - Preliminary Blood NO GROWTH AFTER 48 HOURS 01/31/17 10:00 Wound Culture - Preliminary Foot - Right Gram Negative Lee Lab Studies 02/01/17 02/01/17 02/01/17 Range/Units 17:49 17:15 14:56 WBC (4.8-10.8) K/uL RBC (4.40-5.90) Mil/uL Hgb (12.0-18.0) g/dL Hct (35.0-51.0) % MCV (80.0-94.0) fL MCH (27.0-31.0) pg MCHC (33.0-37.0) g/dL RDW (11.5-14.5) % Plt Count (130-400) K/uL MPV (7.2-11.7) fL Neut % (Auto) (50.0-75.0) % Lymph % (Auto) (20.0-40.0) % [place] % (Auto) (0.0-10.0) % Eos % (Auto) (0.0-4.0) % Baso % (Auto) (0.0-2.0) % Neut # (1.8-7.0) K/uL Lymph # (1.0-4.3) K/uL [place] # (0.0-0.8) K/uL Eos # (0.0-0.7) K/uL Baso # (0.0-0.2) K/uL Neutrophils % (Manual) (50-75) % Band Neutrophils % (0-2) % Lymphocytes % (Manual) (20-40) % Monocytes % (Manual) (0-10) % Platelet Estimate (NORMAL) Large Platelets RBC Morphology APTT 33 (21-34) SECONDS Puncture Site pCO2 (35-45) mm/Hg pO2 (80-100) mm/Hg HCO3 (21-28) mmol/L ABG pH (7.35-7.45) ABG Total CO2 (22-28) mmol/L ABG O2 Saturation (95-98) % ABG Base Excess (-2.0-3.0) mmol/L ABG Hemoglobin (11.7-17.4) g/dL ABG Carboxyhemoglobin (0.5-1.5) % POC ABG HHb (Measured) (0.0-5.0) % ABG Methemoglobin (0.0-3.0) % James Test A-a O2 Difference mm/Hg Respiratory Index Hgb O2 Saturation (95.0-98.0) % Vent Mode Mechanical Rate FiO2 % Tidal Volume PEEP Sodium (132-148) mmol/L Potassium (3.6-5.2) mmol/L Chloride (98-107) mmol/L Carbon Dioxide (22-30) mmol/L Anion Gap (10-20) BUN (9-20) mg/dL Creatinine (0.8-1.5) MG/DL Est GFR ( Amer) Est GFR (Non-Af Amer) POC Glucose (mg/dL) 175 H (65-110) mg/dL Random Glucose (75-110) mg/dL Calcium (8.6-10.4) mg/dl Phosphorus (2.5-4.5) mg/dL Magnesium (1.6-2.3) mg/dL Total Bilirubin (0.2-1.3) mg/dL AST (17-59) U/L ALT (21-72) U/L Alkaline Phosphatase (38-126) U/L Troponin I 20.6000 H* (0.00-0.120) ng/mL NT-Pro-B Natriuret Pep (0-900) pg/mL Total Protein (6.3-8.3) g/dL Albumin (3.5-5.0) g/dL Globulin (2.2-3.9) gm/dL Albumin/Globulin Ratio (1.0-2.1) Vancomycin Trough (5.0-10.0) ug/mL 02/01/17 02/01/17 02/01/17 Range/Units 11:32 11:16 07:09 WBC (4.8-10.8) K/uL RBC (4.40-5.90) Mil/uL Hgb (12.0-18.0) g/dL Hct (35.0-51.0) % MCV (80.0-94.0) fL MCH (27.0-31.0) pg MCHC (33.0-37.0) g/dL RDW (11.5-14.5) % Plt Count (130-400) K/uL MPV (7.2-11.7) fL Neut % (Auto) (50.0-75.0) % Lymph % (Auto) (20.0-40.0) % [place] % (Auto) (0.0-10.0) % Eos % (Auto) (0.0-4.0) % Baso % (Auto) (0.0-2.0) % Neut # (1.8-7.0) K/uL Lymph # (1.0-4.3) K/uL [place] # (0.0-0.8) K/uL Eos # (0.0-0.7) K/uL Baso # (0.0-0.2) K/uL Neutrophils % (Manual) (50-75) % Band Neutrophils % (0-2) % Lymphocytes % (Manual) (20-40) % Monocytes % (Manual) (0-10) % Platelet Estimate (NORMAL) Large Platelets RBC Morphology APTT (21-34) SECONDS Puncture Site pCO2 (35-45) mm/Hg pO2 (80-100) mm/Hg HCO3 (21-28) mmol/L ABG pH (7.35-7.45) ABG Total CO2 (22-28) mmol/L ABG O2 Saturation (95-98) % ABG Base Excess (-2.0-3.0) mmol/L ABG Hemoglobin (11.7-17.4) g/dL ABG Carboxyhemoglobin (0.5-1.5) % POC ABG HHb (Measured) (0.0-5.0) % ABG Methemoglobin (0.0-3.0) % James Test A-a O2 Difference mm/Hg Respiratory Index Hgb O2 Saturation (95.0-98.0) % Vent Mode Mechanical Rate FiO2 % Tidal Volume PEEP Sodium (132-148) mmol/L Potassium (3.6-5.2) mmol/L Chloride (98-107) mmol/L Carbon Dioxide (22-30) mmol/L Anion Gap (10-20) BUN (9-20) mg/dL Creatinine (0.8-1.5) MG/DL Est GFR ( Amer) Est GFR (Non-Af Amer) POC Glucose (mg/dL) 156 H (65-110) mg/dL Random Glucose (75-110) mg/dL Calcium (8.6-10.4) mg/dl Phosphorus (2.5-4.5) mg/dL Magnesium (1.6-2.3) mg/dL Total Bilirubin (0.2-1.3) mg/dL AST (17-59) U/L ALT (21-72) U/L Alkaline Phosphatase (38-126) U/L Troponin I 27.7000 H* (0.00-0.120) ng/mL NT-Pro-B Natriuret Pep 5390 H (0-900) pg/mL Total Protein (6.3-8.3) g/dL Albumin (3.5-5.0) g/dL Globulin (2.2-3.9) gm/dL Albumin/Globulin Ratio (1.0-2.1) Vancomycin Trough 13.2 H (5.0-10.0) ug/mL 02/01/17 02/01/17 02/01/17 Range/Units 06:26 06:19 05:33 WBC 15.4 H (4.8-10.8) K/uL RBC 3.06 L (4.40-5.90) Mil/uL Hgb 8.9 L (12.0-18.0) g/dL Hct 26.8 L (35.0-51.0) % MCV 87.6 (80.0-94.0) fL MCH 29.1 (27.0-31.0) pg MCHC 33.2 (33.0-37.0) g/dL RDW 13.5 (11.5-14.5) % Plt Count 259 (130-400) K/uL MPV 8.7 (7.2-11.7) fL Neut % (Auto) 81.8 H (50.0-75.0) % Lymph % (Auto) 8.4 L (20.0-40.0) % [place] % (Auto) 9.3 (0.0-10.0) % Eos % (Auto) 0.1 (0.0-4.0) % Baso % (Auto) 0.4 (0.0-2.0) % Neut # 12.6 H (1.8-7.0) K/uL Lymph # 1.3 (1.0-4.3) K/uL [place] # 1.4 H (0.0-0.8) K/uL Eos # 0.0 (0.0-0.7) K/uL Baso # 0.1 (0.0-0.2) K/uL Neutrophils % (Manual) 84 H (50-75) % Band Neutrophils % 2 (0-2) % Lymphocytes % (Manual) 8 L (20-40) % Monocytes % (Manual) 6 (0-10) % Platelet Estimate Normal (NORMAL) Large Platelets Present RBC Morphology Normal APTT (21-34) SECONDS Puncture Site Rr pCO2 37 (35-45) mm/Hg pO2 127 H (80-100) mm/Hg HCO3 23.6 (21-28) mmol/L ABG pH 7.40 (7.35-7.45) ABG Total CO2 24.0 (22-28) mmol/L ABG O2 Saturation 97.7 (95-98) % ABG Base Excess -1.7 (-2.0-3.0) mmol/L ABG Hemoglobin 8.8 L (11.7-17.4) g/dL ABG Carboxyhemoglobin 0.5 (0.5-1.5) % POC ABG HHb (Measured) 2.3 (0.0-5.0) % ABG Methemoglobin 1.3 (0.0-3.0) % James Test Pos A-a O2 Difference 255.0 mm/Hg Respiratory Index 2.0 Hgb O2 Saturation 95.8 (95.0-98.0) % Vent Mode Prvc Mechanical Rate 18 FiO2 60.0 % Tidal Volume 500 PEEP 5 Sodium 137 (132-148) mmol/L Potassium 4.6 (3.6-5.2) mmol/L Chloride 102 (98-107) mmol/L Carbon Dioxide 20 L (22-30) mmol/L Anion Gap 20 (10-20) BUN 26 H (9-20) mg/dL Creatinine 2.2 H (0.8-1.5) MG/DL Est GFR ( Amer) 36 Est GFR (Non-Af Amer) 30 POC Glucose (mg/dL) (65-110) mg/dL Random Glucose 185 H (75-110) mg/dL Calcium 8.5 L (8.6-10.4) mg/dl Phosphorus 5.1 H (2.5-4.5) mg/dL Magnesium 1.5 L (1.6-2.3) mg/dL Total Bilirubin 0.8 (0.2-1.3) mg/dL AST 77 H D (17-59) U/L ALT 36 (21-72) U/L Alkaline Phosphatase 62 (38-126) U/L Troponin I (0.00-0.120) ng/mL NT-Pro-B Natriuret Pep (0-900) pg/mL Total Protein 6.2 L (6.3-8.3) g/dL Albumin 3.0 L (3.5-5.0) g/dL Globulin 3.2 (2.2-3.9) gm/dL Albumin/Globulin Ratio 0.9 L (1.0-2.1) Vancomycin Trough (5.0-10.0) ug/mL 01/31/17 01/31/17 Range/Units 22:35 21:44 WBC (4.8-10.8) K/uL RBC (4.40-5.90) Mil/uL Hgb (12.0-18.0) g/dL Hct (35.0-51.0) % MCV (80.0-94.0) fL MCH (27.0-31.0) pg MCHC (33.0-37.0) g/dL RDW (11.5-14.5) % Plt Count (130-400) K/uL MPV (7.2-11.7) fL Neut % (Auto) (50.0-75.0) % Lymph % (Auto) (20.0-40.0) % [place] % (Auto) (0.0-10.0) % Eos % (Auto) (0.0-4.0) % Baso % (Auto) (0.0-2.0) % Neut # (1.8-7.0) K/uL Lymph # (1.0-4.3) K/uL [place] # (0.0-0.8) K/uL Eos # (0.0-0.7) K/uL Baso # (0.0-0.2) K/uL Neutrophils % (Manual) (50-75) % Band Neutrophils % (0-2) % Lymphocytes % (Manual) (20-40) % Monocytes % (Manual) (0-10) % Platelet Estimate (NORMAL) Large Platelets RBC Morphology APTT (21-34) SECONDS Puncture Site Rra pCO2 40 (35-45) mm/Hg pO2 310 H (80-100) mm/Hg HCO3 22.9 (21-28) mmol/L ABG pH 7.36 (7.35-7.45) ABG Total CO2 23.8 (22-28) mmol/L ABG O2 Saturation 98.8 H (95-98) % ABG Base Excess -2.6 L (-2.0-3.0) mmol/L ABG Hemoglobin 8.7 L (11.7-17.4) g/dL ABG Carboxyhemoglobin 0.8 (0.5-1.5) % POC ABG HHb (Measured) 1.2 (0.0-5.0) % ABG Methemoglobin 0.4 (0.0-3.0) % James Test Pos A-a O2 Difference 353.0 mm/Hg Respiratory Index 1.1 Hgb O2 Saturation 97.6 (95.0-98.0) % Vent Mode A/c Mechanical Rate 18 FiO2 100.0 % Tidal Volume 500 PEEP 5 Sodium (132-148) mmol/L Potassium (3.6-5.2) mmol/L Chloride (98-107) mmol/L Carbon Dioxide (22-30) mmol/L Anion Gap (10-20) BUN (9-20) mg/dL Creatinine (0.8-1.5) MG/DL Est GFR ( Amer) Est GFR (Non-Af Amer) POC Glucose (mg/dL) 242 H (65-110) mg/dL Random Glucose (75-110) mg/dL Calcium (8.6-10.4) mg/dl Phosphorus (2.5-4.5) mg/dL Magnesium (1.6-2.3) mg/dL Total Bilirubin (0.2-1.3) mg/dL AST (17-59) U/L ALT (21-72) U/L Alkaline Phosphatase (38-126) U/L Troponin I (0.00-0.120) ng/mL NT-Pro-B Natriuret Pep (0-900) pg/mL Total Protein (6.3-8.3) g/dL Albumin (3.5-5.0) g/dL Globulin (2.2-3.9) gm/dL Albumin/Globulin Ratio (1.0-2.1) Vancomycin Trough (5.0-10.0) ug/mL Laboratory Results - last 24 hr 01/31/17 01/31/17 02/01/17 21:44 22:35 05:33 WBC RBC Hgb Hct MCV MCH MCHC RDW Plt Count MPV Neut % (Auto) Lymph % (Auto) [place] % (Auto) Eos % (Auto) Baso % (Auto) Neut # Lymph # [place] # Eos # Baso # Neutrophils % (Manual) Band Neutrophils % Lymphocytes % (Manual) Monocytes % (Manual) Platelet Estimate Large Platelets RBC Morphology APTT Puncture Site Rra Rr pCO2 40 37 pO2 310 H 127 H HCO3 22.9 23.6 ABG pH 7.36 7.40 ABG Total CO2 23.8 24.0 ABG O2 Saturation 98.8 H 97.7 ABG Base Excess -2.6 L -1.7 ABG Hemoglobin 8.7 L 8.8 L ABG Carboxyhemoglobin 0.8 0.5 POC ABG HHb (Measured) 1.2 2.3 ABG Methemoglobin 0.4 1.3 James Test Pos Pos A-a O2 Difference 353.0 255.0 Respiratory Index 1.1 2.0 Hgb O2 Saturation 97.6 95.8 Vent Mode A/c Prvc Mechanical Rate 18 18 FiO2 100.0 60.0 Tidal Volume 500 500 PEEP 5 5 Sodium Potassium Chloride Carbon Dioxide Anion Gap BUN Creatinine Est GFR ( Amer) Est GFR (Non-Af Amer) POC Glucose (mg/dL) 242 H Random Glucose Calcium Phosphorus Magnesium Total Bilirubin AST ALT Alkaline Phosphatase Troponin I NT-Pro-B Natriuret Pep Total Protein Albumin Globulin Albumin/Globulin Ratio Vancomycin Trough 02/01/17 02/01/17 02/01/17 06:19 06:26 07:09 WBC 15.4 H RBC 3.06 L Hgb 8.9 L Hct 26.8 L MCV 87.6 MCH 29.1 MCHC 33.2 RDW 13.5 Plt Count 259 MPV 8.7 Neut % (Auto) 81.8 H Lymph % (Auto) 8.4 L [place] % (Auto) 9.3 Eos % (Auto) 0.1 Baso % (Auto) 0.4 Neut # 12.6 H Lymph # 1.3 [place] # 1.4 H Eos # 0.0 Baso # 0.1 Neutrophils % (Manual) 84 H Band Neutrophils % 2 Lymphocytes % (Manual) 8 L Monocytes % (Manual) 6 Platelet Estimate Normal Large Platelets Present RBC Morphology Normal APTT Puncture Site pCO2 pO2 HCO3 ABG pH ABG Total CO2 ABG O2 Saturation ABG Base Excess ABG Hemoglobin ABG Carboxyhemoglobin POC ABG HHb (Measured) ABG Methemoglobin James Test A-a O2 Difference Respiratory Index Hgb O2 Saturation Vent Mode Mechanical Rate FiO2 Tidal Volume PEEP Sodium 137 Potassium 4.6 Chloride 102 Carbon Dioxide 20 L Anion Gap 20 BUN 26 H Creatinine 2.2 H Est GFR ( Amer) 36 Est GFR (Non-Af Amer) 30 POC Glucose (mg/dL) Random Glucose 185 H Calcium 8.5 L Phosphorus 5.1 H Magnesium 1.5 L Total Bilirubin 0.8 AST 77 H D ALT 36 Alkaline Phosphatase 62 Troponin I NT-Pro-B Natriuret Pep Total Protein 6.2 L Albumin 3.0 L Globulin 3.2 Albumin/Globulin Ratio 0.9 L Vancomycin Trough 13.2 H 02/01/17 02/01/17 02/01/17 11:16 11:32 14:56 WBC RBC Hgb Hct MCV MCH MCHC RDW Plt Count MPV Neut % (Auto) Lymph % (Auto) [place] % (Auto) Eos % (Auto) Baso % (Auto) Neut # Lymph # [place] # Eos # Baso # Neutrophils % (Manual) Band Neutrophils % Lymphocytes % (Manual) Monocytes % (Manual) Platelet Estimate Large Platelets RBC Morphology APTT 33 Puncture Site pCO2 pO2 HCO3 ABG pH ABG Total CO2 ABG O2 Saturation ABG Base Excess ABG Hemoglobin ABG Carboxyhemoglobin POC ABG HHb (Measured) ABG Methemoglobin James Test A-a O2 Difference Respiratory Index Hgb O2 Saturation Vent Mode Mechanical Rate FiO2 Tidal Volume PEEP Sodium Potassium Chloride Carbon Dioxide Anion Gap BUN Creatinine Est GFR ( Amer) Est GFR (Non-Af Amer) POC Glucose (mg/dL) 156 H Random Glucose Calcium Phosphorus Magnesium Total Bilirubin AST ALT Alkaline Phosphatase Troponin I 27.7000 H* NT-Pro-B Natriuret Pep 5390 H Total Protein Albumin Globulin Albumin/Globulin Ratio Vancomycin Trough 02/01/17 02/01/17 17:15 17:49 WBC RBC Hgb Hct MCV MCH MCHC RDW Plt Count MPV Neut % (Auto) Lymph % (Auto) [place] % (Auto) Eos % (Auto) Baso % (Auto) Neut # Lymph # [place] # Eos # Baso # Neutrophils % (Manual) Band Neutrophils % Lymphocytes % (Manual) Monocytes % (Manual) Platelet Estimate Large Platelets RBC Morphology APTT Puncture Site pCO2 pO2 HCO3 ABG pH ABG Total CO2 ABG O2 Saturation ABG Base Excess ABG Hemoglobin ABG Carboxyhemoglobin POC ABG HHb (Measured) ABG Methemoglobin James Test A-a O2 Difference Respiratory Index Hgb O2 Saturation Vent Mode Mechanical Rate FiO2 Tidal Volume PEEP Sodium Potassium Chloride Carbon Dioxide Anion Gap BUN Creatinine Est GFR ( Amer) Est GFR (Non-Af Amer) POC Glucose (mg/dL) 175 H Random Glucose Calcium Phosphorus Magnesium Total Bilirubin AST ALT Alkaline Phosphatase Troponin I 20.6000 H* NT-Pro-B Natriuret Pep Total Protein Albumin Globulin Albumin/Globulin Ratio Vancomycin Trough EKG/Cardiology Studies: Cardiology / EKG Studies 02/01/17 14:15 ELECTROCARDIOGRAM Stat Comment: Mode Of Transportation: BED Reason For Exam: MED CLEAR Fingerstick Blood Sugar Results: 175 Review of Systems - Review of Systems Review of Systems: Unable to evaluate as patient is intubated Critical Care Progress Note - Nutrition Nutrition: Nutrition Category Date Time Status NPO Diet [DIET] Diets 02/01/17 Breakfast Active Assessment/Plan - Assessment and Plan (Free Text) Assessment: 71 year old male with past medical history DM, arthritis, HTN, chronic lower extremity edema, s/p Right Hallux partial amputation POD# 1, intubated due to respiratory distress Plan: Cardio: Elevated Troponins (27.7--->20.6---> f/u 3rd troponin) Hx of HTN BNP: 5390 Cardio, Dr. Jaimes on board * As per cardiology, after hemodynamically stability achieve, anticipate cardiac catherization * F/u echocardiogram Medications: Lopressor 25mg PO BID Cozaar 50mg PO daily Aspirin 325mg PO daily Plavix 300mg PO once, loading dose. Plavix 75mg PO daily Crestor 2.5mg PO HS Pulm: Pulmonary edema IVF fluids on hold Endo: Accuchecks Glipizide 5mg PO BID ISS low dose protocol GI: Coffee-Ground emesis No feeding Neuro: Propofol: D/C today Maintained on versed 2mg IV Q4H prn ID: Gram negative LEE culture right hallux ( 01/31/17) Medication: Zosyn 3.375gm IV Q6H Prophylaxis: DVT: Heparin drip GI: Pepcid 20mg IV daily <Morris Scott - Last Filed: 02/02/17 08:28> CCU Objective - Vital Signs / Intake & Output Vital Signs (Last 4 hours): Vital Signs Pulse Resp BP Pulse Ox 02/02/17 06:03 68 18 131/60 100 02/02/17 05:03 80 19 146/67 100 Intake and Output (Last 8hrs): Intake & Output 02/01/17 02/02/17 02/02/17 22:59 06:59 14:59 Intake Total 283.0 121.6 250 Output Total 1280 490 Balance -997.0 -368.4 250 Intake: IV 250 Intake, IV Amount 283.0 121.6 Left Hand 83.0 121.6 Right Hand 150 0 Right PICC 50 Oral 0 Output: Gastric Amount 400 Stomach 400 Urine 880 490 Urethral (Carr) 880 490 Other: # Bowel Movements 0 - Medications Active Medications: Active Medications Generic Name Dose Route Start Last Admin Trade Name Freq PRN Reason Stop Dose Admin Acetaminophen 650 mg 01/30/17 15:56 Tylenol 325mg Tab PO Q6 PRN Pain, moderate (4-7) Clopidogrel Bisulfate 75 mg 02/02/17 10:00 Plavix PO DAILY [facility] Famotidine 20 mg 02/02/17 10:00 Pepcid IVP DAILY [facility] Glipizide 5 mg 02/02/17 10:00 Glucotrol PO BID [facility] Piperacillin Sod/Tazobactam 100 mls @ 200 mls/hr 01/30/17 13:30 02/02/17 07: 30 Sod 3.375 gm/ Sodium Chloride IVPB 200 mls/hr Q6H [facility] Administration Sodium Chloride 1,000 mls @ 30 mls/hr 01/31/17 18:51 01/31/17 18:55 Sodium Chloride 0.9% IV 30 mls/hr .Q24H [facility] Administration Nitroglycerin/Dextrose 50 mg in 250 mls @ 1.5 mls/hr 01/31/17 19:15 01/31/17 22:24 Nitroglycerin 50 Mg/250 Ml D5w IV Not Given .Q24H [facility] Protocol 5 MCG/MIN Heparin Sodium/Sodium Chloride 25,000 units in 250 mls @ 15.24 mls/hr 16:00 02/02/17 07:31 Heparin 82919 Units/250ml 1/2 Normal Saline IV 12 units/kg/hr .[id number] PRN 15.24 mls/hr PROTOCOL Administration Protocol 12 UNITS/KG/HR Insulin Human Regular 0 unit 02/01/17 12:00 02/02/17 06:14 Novolin R SC Not Given Q6H [facility] Protocol Losartan Potassium 50 mg 01/30/17 16:30 02/01/17 10:48 Cozaar PO 50 mg DAILY [facility] Administration Metoprolol Tartrate 25 mg 02/01/17 22:00 02/01/17 22:30 Lopressor PO 25 mg Q12 [facility] Administration Midazolam HCl 2 mg 02/01/17 13:28 02/02/17 07:30 Versed Inj IVP 2 mg Q4H PRN Administration Agitation Oxycodone/Acetaminophen 1 tab 01/31/17 12:44 01/31/17 12:54 Percocet 5/325 Mg Tab PO 02/03/17 12:45 1 tab Q6H PRN Administration Pain, severe (8-10) Rosuvastatin Calcium 2.5 mg 01/30/17 22:30 02/01/17 21:23 Crestor PO 2.5 mg HS [facility] Administration - Patient Studies Lab Studies: Microbiology Studies 01/30/17 08:15 Gram Stain - Final Toe Wound Culture - Preliminary Proteus Mirabilis Gram Negative Lee#2 01/30/17 07:55 Blood Culture - Preliminary Blood NO GROWTH AFTER 48 HOURS 01/30/17 08:10 Blood Culture - Preliminary Blood NO GROWTH AFTER 48 HOURS 01/31/17 10:00 Wound Culture - Preliminary Foot - Right Gram Negative Lee Lab Studies 02/02/17 02/02/17 02/02/17 Range/Units 07:22 06:13 06:11 WBC (4.8-10.8) K/uL RBC (4.40-5.90) Mil/uL Hgb (12.0-18.0) g/dL Hct (35.0-51.0) % MCV (80.0-94.0) fL MCH (27.0-31.0) pg MCHC (33.0-37.0) g/dL RDW (11.5-14.5) % Plt Count (130-400) K/uL MPV (7.2-11.7) fL Neut % (Auto) (50.0-75.0) % Lymph % (Auto) (20.0-40.0) % [place] % (Auto) (0.0-10.0) % Eos % (Auto) (0.0-4.0) % Baso % (Auto) (0.0-2.0) % Neut # (1.8-7.0) K/uL Lymph # (1.0-4.3) K/uL [place] # (0.0-0.8) K/uL Eos # (0.0-0.7) K/uL Baso # (0.0-0.2) K/uL Neutrophils % (Manual) (50-75) % Band Neutrophils % (0-2) % Lymphocytes % (Manual) (20-40) % Monocytes % (Manual) (0-10) % Eosinophils % (Manual) (0-4) % Platelet Estimate (NORMAL) RBC Morphology APTT 72 H D (21-34) SECONDS Puncture Site pCO2 (35-45) mm/Hg pO2 (80-100) mm/Hg HCO3 (21-28) mmol/L ABG pH (7.35-7.45) ABG Total CO2 (22-28) mmol/L ABG O2 Saturation (95-98) % ABG Base Excess (-2.0-3.0) mmol/L ABG Hemoglobin (11.7-17.4) g/dL ABG Carboxyhemoglobin (0.5-1.5) % POC ABG HHb (Measured) (0.0-5.0) % ABG Methemoglobin (0.0-3.0) % James Test A-a O2 Difference mm/Hg Respiratory Index Hgb O2 Saturation (95.0-98.0) % Vent Mode Mechanical Rate FiO2 % Tidal Volume PEEP Sodium (132-148) mmol/L Potassium (3.6-5.2) mmol/L Chloride (98-107) mmol/L Carbon Dioxide (22-30) mmol/L Anion Gap (10-20) BUN (9-20) mg/dL Creatinine (0.8-1.5) MG/DL Est GFR ( Amer) Est GFR (Non-Af Amer) POC Glucose (mg/dL) 184 H 136 H (65-110) mg/dL Random Glucose (75-110) mg/dL Calcium (8.6-10.4) mg/dl Phosphorus (2.5-4.5) mg/dL Magnesium (1.6-2.3) mg/dL Total Bilirubin (0.2-1.3) mg/dL AST (17-59) U/L ALT (21-72) U/L Alkaline Phosphatase (38-126) U/L Total Creatine Kinase (55-170) U/L CK-MB (Mass) (0.0-3.38) ng/mL Troponin I (0.00-0.120) ng/mL Troponin I, Quant (0.00-0.120) ng/mL NT-Pro-B Natriuret Pep (0-900) pg/mL Total Protein (6.3-8.3) g/dL Albumin (3.5-5.0) g/dL Globulin (2.2-3.9) gm/dL Albumin/Globulin Ratio (1.0-2.1) 02/02/17 02/02/17 02/02/17 Range/Units 06:11 06:11 05:20 WBC 15.0 H (4.8-10.8) K/uL RBC 2.73 L (4.40-5.90) Mil/uL Hgb 7.9 L (12.0-18.0) g/dL Hct 23.9 L (35.0-51.0) % MCV 87.7 (80.0-94.0) fL MCH 28.9 (27.0-31.0) pg MCHC 32.9 L (33.0-37.0) g/dL RDW 13.6 (11.5-14.5) % Plt Count 236 (130-400) K/uL MPV 8.1 (7.2-11.7) fL Neut % (Auto) 80.3 H (50.0-75.0) % Lymph % (Auto) 9.1 L (20.0-40.0) % [place] % (Auto) 8.7 (0.0-10.0) % Eos % (Auto) 1.5 (0.0-4.0) % Baso % (Auto) 0.4 (0.0-2.0) % Neut # 12.0 H (1.8-7.0) K/uL Lymph # 1.4 (1.0-4.3) K/uL [place] # 1.3 H (0.0-0.8) K/uL Eos # 0.2 (0.0-0.7) K/uL Baso # 0.1 (0.0-0.2) K/uL Neutrophils % (Manual) 87 H (50-75) % Band Neutrophils % 1 (0-2) % Lymphocytes % (Manual) 5 L (20-40) % Monocytes % (Manual) 4 (0-10) % Eosinophils % (Manual) 3 (0-4) % Platelet Estimate Normal (NORMAL) RBC Morphology Normal APTT (21-34) SECONDS Puncture Site Rr pCO2 40 (35-45) mm/Hg pO2 168 H (80-100) mm/Hg HCO3 22.9 (21-28) mmol/L ABG pH 7.36 (7.35-7.45) ABG Total CO2 23.8 (22-28) mmol/L ABG O2 Saturation 98.2 H (95-98) % ABG Base Excess -2.6 L (-2.0-3.0) mmol/L ABG Hemoglobin 8.1 L (11.7-17.4) g/dL ABG Carboxyhemoglobin 0.7 (0.5-1.5) % POC ABG HHb (Measured) 1.8 (0.0-5.0) % ABG Methemoglobin 0.4 (0.0-3.0) % James Test Pos A-a O2 Difference 210.0 mm/Hg Respiratory Index 1.3 Hgb O2 Saturation 97.2 (95.0-98.0) % Vent Mode Prvc Mechanical Rate 18 FiO2 60.0 % Tidal Volume 500 PEEP 5 Sodium 140 (132-148) mmol/L Potassium 3.8 (3.6-5.2) mmol/L Chloride 103 (98-107) mmol/L Carbon Dioxide 21 L (22-30) mmol/L Anion Gap 20 (10-20) BUN 29 H (9-20) mg/dL Creatinine 2.7 H (0.8-1.5) MG/DL Est GFR ( Amer) 28 Est GFR (Non-Af Amer) 23 POC Glucose (mg/dL) (65-110) mg/dL Random Glucose 138 H (75-110) mg/dL Calcium 8.8 (8.6-10.4) mg/dl Phosphorus 4.6 H (2.5-4.5) mg/dL Magnesium 1.9 (1.6-2.3) mg/dL Total Bilirubin 0.8 (0.2-1.3) mg/dL AST 74 H (17-59) U/L ALT 34 (21-72) U/L Alkaline Phosphatase 49 (38-126) U/L Total Creatine Kinase (55-170) U/L CK-MB (Mass) (0.0-3.38) ng/mL Troponin I (0.00-0.120) ng/mL Troponin I, Quant (0.00-0.120) ng/mL NT-Pro-B Natriuret Pep (0-900) pg/mL Total Protein 6.2 L (6.3-8.3) g/dL Albumin 2.9 L (3.5-5.0) g/dL Globulin 3.3 (2.2-3.9) gm/dL Albumin/Globulin Ratio 0.9 L (1.0-2.1) 02/02/17 02/01/17 02/01/17 Range/Units 00:55 22:55 22:55 WBC (4.8-10.8) K/uL RBC (4.40-5.90) Mil/uL Hgb (12.0-18.0) g/dL Hct (35.0-51.0) % MCV (80.0-94.0) fL MCH (27.0-31.0) pg MCHC (33.0-37.0) g/dL RDW (11.5-14.5) % Plt Count (130-400) K/uL MPV (7.2-11.7) fL Neut % (Auto) (50.0-75.0) % Lymph % (Auto) (20.0-40.0) % [place] % (Auto) (0.0-10.0) % Eos % (Auto) (0.0-4.0) % Baso % (Auto) (0.0-2.0) % Neut # (1.8-7.0) K/uL Lymph # (1.0-4.3) K/uL [place] # (0.0-0.8) K/uL Eos # (0.0-0.7) K/uL Baso # (0.0-0.2) K/uL Neutrophils % (Manual) (50-75) % Band Neutrophils % (0-2) % Lymphocytes % (Manual) (20-40) % Monocytes % (Manual) (0-10) % Eosinophils % (Manual) (0-4) % Platelet Estimate (NORMAL) RBC Morphology APTT 80 H D (21-34) SECONDS Puncture Site pCO2 (35-45) mm/Hg pO2 (80-100) mm/Hg HCO3 (21-28) mmol/L ABG pH (7.35-7.45) ABG Total CO2 (22-28) mmol/L ABG O2 Saturation (95-98) % ABG Base Excess (-2.0-3.0) mmol/L ABG Hemoglobin (11.7-17.4) g/dL ABG Carboxyhemoglobin (0.5-1.5) % POC ABG HHb (Measured) (0.0-5.0) % ABG Methemoglobin (0.0-3.0) % James Test A-a O2 Difference mm/Hg Respiratory Index Hgb O2 Saturation (95.0-98.0) % Vent Mode Mechanical Rate FiO2 % Tidal Volume PEEP Sodium (132-148) mmol/L Potassium (3.6-5.2) mmol/L Chloride (98-107) mmol/L Carbon Dioxide (22-30) mmol/L Anion Gap (10-20) BUN (9-20) mg/dL Creatinine (0.8-1.5) MG/DL Est GFR ( Amer) Est GFR (Non-Af Amer) POC Glucose (mg/dL) 137 H (65-110) mg/dL Random Glucose (75-110) mg/dL Calcium (8.6-10.4) mg/dl Phosphorus (2.5-4.5) mg/dL Magnesium (1.6-2.3) mg/dL Total Bilirubin (0.2-1.3) mg/dL AST (17-59) U/L ALT (21-72) U/L Alkaline Phosphatase (38-126) U/L Total Creatine Kinase 381 H (55-170) U/L CK-MB (Mass) 9.15 H (0.0-3.38) ng/mL Troponin I (0.00-0.120) ng/mL Troponin I, Quant 17.8000 H* (0.00-0.120) ng/mL NT-Pro-B Natriuret Pep (0-900) pg/mL Total Protein (6.3-8.3) g/dL Albumin (3.5-5.0) g/dL Globulin (2.2-3.9) gm/dL Albumin/Globulin Ratio (1.0-2.1) 02/01/17 02/01/17 02/01/17 Range/Units 17:49 17:15 14:56 WBC (4.8-10.8) K/uL RBC (4.40-5.90) Mil/uL Hgb (12.0-18.0) g/dL Hct (35.0-51.0) % MCV (80.0-94.0) fL MCH (27.0-31.0) pg MCHC (33.0-37.0) g/dL RDW (11.5-14.5) % Plt Count (130-400) K/uL MPV (7.2-11.7) fL Neut % (Auto) (50.0-75.0) % Lymph % (Auto) (20.0-40.0) % [place] % (Auto) (0.0-10.0) % Eos % (Auto) (0.0-4.0) % Baso % (Auto) (0.0-2.0) % Neut # (1.8-7.0) K/uL Lymph # (1.0-4.3) K/uL [place] # (0.0-0.8) K/uL Eos # (0.0-0.7) K/uL Baso # (0.0-0.2) K/uL Neutrophils % (Manual) (50-75) % Band Neutrophils % (0-2) % Lymphocytes % (Manual) (20-40) % Monocytes % (Manual) (0-10) % Eosinophils % (Manual) (0-4) % Platelet Estimate (NORMAL) RBC Morphology APTT 33 (21-34) SECONDS Puncture Site pCO2 (35-45) mm/Hg pO2 (80-100) mm/Hg HCO3 (21-28) mmol/L ABG pH (7.35-7.45) ABG Total CO2 (22-28) mmol/L ABG O2 Saturation (95-98) % ABG Base Excess (-2.0-3.0) mmol/L ABG Hemoglobin (11.7-17.4) g/dL ABG Carboxyhemoglobin (0.5-1.5) % POC ABG HHb (Measured) (0.0-5.0) % ABG Methemoglobin (0.0-3.0) % James Test A-a O2 Difference mm/Hg Respiratory Index Hgb O2 Saturation (95.0-98.0) % Vent Mode Mechanical Rate FiO2 % Tidal Volume PEEP Sodium (132-148) mmol/L Potassium (3.6-5.2) mmol/L Chloride (98-107) mmol/L Carbon Dioxide (22-30) mmol/L Anion Gap (10-20) BUN (9-20) mg/dL Creatinine (0.8-1.5) MG/DL Est GFR ( Amer) Est GFR (Non-Af Amer) POC Glucose (mg/dL) 175 H (65-110) mg/dL Random Glucose (75-110) mg/dL Calcium (8.6-10.4) mg/dl Phosphorus (2.5-4.5) mg/dL Magnesium (1.6-2.3) mg/dL Total Bilirubin (0.2-1.3) mg/dL AST (17-59) U/L ALT (21-72) U/L Alkaline Phosphatase (38-126) U/L Total Creatine Kinase (55-170) U/L CK-MB (Mass) (0.0-3.38) ng/mL Troponin I 20.6000 H* (0.00-0.120) ng/mL Troponin I, Quant (0.00-0.120) ng/mL NT-Pro-B Natriuret Pep (0-900) pg/mL Total Protein (6.3-8.3) g/dL Albumin (3.5-5.0) g/dL Globulin (2.2-3.9) gm/dL Albumin/Globulin Ratio (1.0-2.1) 02/01/17 02/01/17 Range/Units 11:32 11:16 WBC (4.8-10.8) K/uL RBC (4.40-5.90) Mil/uL Hgb (12.0-18.0) g/dL Hct (35.0-51.0) % MCV (80.0-94.0) fL MCH (27.0-31.0) pg MCHC (33.0-37.0) g/dL RDW (11.5-14.5) % Plt Count (130-400) K/uL MPV (7.2-11.7) fL Neut % (Auto) (50.0-75.0) % Lymph % (Auto) (20.0-40.0) % [place] % (Auto) (0.0-10.0) % Eos % (Auto) (0.0-4.0) % Baso % (Auto) (0.0-2.0) % Neut # (1.8-7.0) K/uL Lymph # (1.0-4.3) K/uL [place] # (0.0-0.8) K/uL Eos # (0.0-0.7) K/uL Baso # (0.0-0.2) K/uL Neutrophils % (Manual) (50-75) % Band Neutrophils % (0-2) % Lymphocytes % (Manual) (20-40) % Monocytes % (Manual) (0-10) % Eosinophils % (Manual) (0-4) % Platelet Estimate (NORMAL) RBC Morphology APTT (21-34) SECONDS Puncture Site pCO2 (35-45) mm/Hg pO2 (80-100) mm/Hg HCO3 (21-28) mmol/L ABG pH (7.35-7.45) ABG Total CO2 (22-28) mmol/L ABG O2 Saturation (95-98) % ABG Base Excess (-2.0-3.0) mmol/L ABG Hemoglobin (11.7-17.4) g/dL ABG Carboxyhemoglobin (0.5-1.5) % POC ABG HHb (Measured) (0.0-5.0) % ABG Methemoglobin (0.0-3.0) % James Test A-a O2 Difference mm/Hg Respiratory Index Hgb O2 Saturation (95.0-98.0) % Vent Mode Mechanical Rate FiO2 % Tidal Volume PEEP Sodium (132-148) mmol/L Potassium (3.6-5.2) mmol/L Chloride (98-107) mmol/L Carbon Dioxide (22-30) mmol/L Anion Gap (10-20) BUN (9-20) mg/dL Creatinine (0.8-1.5) MG/DL Est GFR ( Amer) Est GFR (Non-Af Amer) POC Glucose (mg/dL) 156 H (65-110) mg/dL Random Glucose (75-110) mg/dL Calcium (8.6-10.4) mg/dl Phosphorus (2.5-4.5) mg/dL Magnesium (1.6-2.3) mg/dL Total Bilirubin (0.2-1.3) mg/dL AST (17-59) U/L ALT (21-72) U/L Alkaline Phosphatase (38-126) U/L Total Creatine Kinase (55-170) U/L CK-MB (Mass) (0.0-3.38) ng/mL Troponin I 27.7000 H* (0.00-0.120) ng/mL Troponin I, Quant (0.00-0.120) ng/mL NT-Pro-B Natriuret Pep 5390 H (0-900) pg/mL Total Protein (6.3-8.3) g/dL Albumin (3.5-5.0) g/dL Globulin (2.2-3.9) gm/dL Albumin/Globulin Ratio (1.0-2.1) Laboratory Results - last 24 hr 02/01/17 02/01/17 02/01/17 11:16 11:32 14:56 WBC RBC Hgb Hct MCV MCH MCHC RDW Plt Count MPV Neut % (Auto) Lymph % (Auto) [place] % (Auto) Eos % (Auto) Baso % (Auto) Neut # Lymph # [place] # Eos # Baso # Neutrophils % (Manual) Band Neutrophils % Lymphocytes % (Manual) Monocytes % (Manual) Eosinophils % (Manual) Platelet Estimate RBC Morphology APTT 33 Puncture Site pCO2 pO2 HCO3 ABG pH ABG Total CO2 ABG O2 Saturation ABG Base Excess ABG Hemoglobin ABG Carboxyhemoglobin POC ABG HHb (Measured) ABG Methemoglobin James Test A-a O2 Difference Respiratory Index Hgb O2 Saturation Vent Mode Mechanical Rate FiO2 Tidal Volume PEEP Sodium Potassium Chloride Carbon Dioxide Anion Gap BUN Creatinine Est GFR ( Amer) Est GFR (Non-Af Amer) POC Glucose (mg/dL) 156 H Random Glucose Calcium Phosphorus Magnesium Total Bilirubin AST ALT Alkaline Phosphatase Total Creatine Kinase CK-MB (Mass) Troponin I 27.7000 H* Troponin I, Quant NT-Pro-B Natriuret Pep 5390 H Total Protein Albumin Globulin Albumin/Globulin Ratio 02/01/17 02/01/17 02/01/17 17:15 17:49 22:55 WBC RBC Hgb Hct MCV MCH MCHC RDW Plt Count MPV Neut % (Auto) Lymph % (Auto) [place] % (Auto) Eos % (Auto) Baso % (Auto) Neut # Lymph # [place] # Eos # Baso # Neutrophils % (Manual) Band Neutrophils % Lymphocytes % (Manual) Monocytes % (Manual) Eosinophils % (Manual) Platelet Estimate RBC Morphology APTT 80 H D Puncture Site pCO2 pO2 HCO3 ABG pH ABG Total CO2 ABG O2 Saturation ABG Base Excess ABG Hemoglobin ABG Carboxyhemoglobin POC ABG HHb (Measured) ABG Methemoglobin James Test A-a O2 Difference Respiratory Index Hgb O2 Saturation Vent Mode Mechanical Rate FiO2 Tidal Volume PEEP Sodium Potassium Chloride Carbon Dioxide Anion Gap BUN Creatinine Est GFR ( Amer) Est GFR (Non-Af Amer) POC Glucose (mg/dL) 175 H Random Glucose Calcium Phosphorus Magnesium Total Bilirubin AST ALT Alkaline Phosphatase Total Creatine Kinase CK-MB (Mass) Troponin I 20.6000 H* Troponin I, Quant NT-Pro-B Natriuret Pep Total Protein Albumin Globulin Albumin/Globulin Ratio 02/01/17 02/02/17 02/02/17 22:55 00:55 05:20 WBC RBC Hgb Hct MCV MCH MCHC RDW Plt Count MPV Neut % (Auto) Lymph % (Auto) [place] % (Auto) Eos % (Auto) Baso % (Auto) Neut # Lymph # [place] # Eos # Baso # Neutrophils % (Manual) Band Neutrophils % Lymphocytes % (Manual) Monocytes % (Manual) Eosinophils % (Manual) Platelet Estimate RBC Morphology APTT Puncture Site Rr pCO2 40 pO2 168 H HCO3 22.9 ABG pH 7.36 ABG Total CO2 23.8 ABG O2 Saturation 98.2 H ABG Base Excess -2.6 L ABG Hemoglobin 8.1 L ABG Carboxyhemoglobin 0.7 POC ABG HHb (Measured) 1.8 ABG Methemoglobin 0.4 James Test Pos A-a O2 Difference 210.0 Respiratory Index 1.3 Hgb O2 Saturation 97.2 Vent Mode Prvc Mechanical Rate 18 FiO2 60.0 Tidal Volume 500 PEEP 5 Sodium Potassium Chloride Carbon Dioxide Anion Gap BUN Creatinine Est GFR ( Amer) Est GFR (Non-Af Amer) POC Glucose (mg/dL) 137 H Random Glucose Calcium Phosphorus Magnesium Total Bilirubin AST ALT Alkaline Phosphatase Total Creatine Kinase 381 H CK-MB (Mass) 9.15 H Troponin I Troponin I, Quant 17.8000 H* NT-Pro-B Natriuret Pep Total Protein Albumin Globulin Albumin/Globulin Ratio 02/02/17 02/02/17 02/02/17 06:11 06:11 06:11 WBC 15.0 H RBC 2.73 L Hgb 7.9 L Hct 23.9 L MCV 87.7 MCH 28.9 MCHC 32.9 L RDW 13.6 Plt Count 236 MPV 8.1 Neut % (Auto) 80.3 H Lymph % (Auto) 9.1 L [place] % (Auto) 8.7 Eos % (Auto) 1.5 Baso % (Auto) 0.4 Neut # 12.0 H Lymph # 1.4 [place] # 1.3 H Eos # 0.2 Baso # 0.1 Neutrophils % (Manual) 87 H Band Neutrophils % 1 Lymphocytes % (Manual) 5 L Monocytes % (Manual) 4 Eosinophils % (Manual) 3 Platelet Estimate Normal RBC Morphology Normal APTT 72 H D Puncture Site pCO2 pO2 HCO3 ABG pH ABG Total CO2 ABG O2 Saturation ABG Base Excess ABG Hemoglobin ABG Carboxyhemoglobin POC ABG HHb (Measured) ABG Methemoglobin James Test A-a O2 Difference Respiratory Index Hgb O2 Saturation Vent Mode Mechanical Rate FiO2 Tidal Volume PEEP Sodium 140 Potassium 3.8 Chloride 103 Carbon Dioxide 21 L Anion Gap 20 BUN 29 H Creatinine 2.7 H Est GFR ( Amer) 28 Est GFR (Non-Af Amer) 23 POC Glucose (mg/dL) Random Glucose 138 H Calcium 8.8 Phosphorus 4.6 H Magnesium 1.9 Total Bilirubin 0.8 AST 74 H ALT 34 Alkaline Phosphatase 49 Total Creatine Kinase CK-MB (Mass) Troponin I Troponin I, Quant NT-Pro-B Natriuret Pep Total Protein 6.2 L Albumin 2.9 L Globulin 3.3 Albumin/Globulin Ratio 0.9 L 02/02/17 02/02/17 06:13 07:22 WBC RBC Hgb Hct MCV MCH MCHC RDW Plt Count MPV Neut % (Auto) Lymph % (Auto) [place] % (Auto) Eos % (Auto) Baso % (Auto) Neut # Lymph # [place] # Eos # Baso # Neutrophils % (Manual) Band Neutrophils % Lymphocytes % (Manual) Monocytes % (Manual) Eosinophils % (Manual) Platelet Estimate RBC Morphology APTT Puncture Site pCO2 pO2 HCO3 ABG pH ABG Total CO2 ABG O2 Saturation ABG Base Excess ABG Hemoglobin ABG Carboxyhemoglobin POC ABG HHb (Measured) ABG Methemoglobin James Test A-a O2 Difference Respiratory Index Hgb O2 Saturation Vent Mode Mechanical Rate FiO2 Tidal Volume PEEP Sodium Potassium Chloride Carbon Dioxide Anion Gap BUN Creatinine Est GFR ( Amer) Est GFR (Non-Af Amer) POC Glucose (mg/dL) 136 H 184 H Random Glucose Calcium Phosphorus Magnesium Total Bilirubin AST ALT Alkaline Phosphatase Total Creatine Kinase CK-MB (Mass) Troponin I Troponin I, Quant NT-Pro-B Natriuret Pep Total Protein Albumin Globulin Albumin/Globulin Ratio EKG/Cardiology Studies: Cardiology / EKG Studies 02/01/17 14:15 ELECTROCARDIOGRAM Stat Comment: Mode Of Transportation: BED Reason For Exam: MED CLEAR Critical Care Progress Note - Nutrition Nutrition: Nutrition Category Date Time Status NPO Diet [DIET] Diets 02/01/17 Breakfast Active Attending/Attestation - Attestation I have personally seen and examined this patient.: Yes I have fully participated in the care of the patient.: Yes I have reviewed all pertinent clinical information: Yes Notes (Text): 02/02/17 08:27 I have seen and examined the patient. Medical records, lab studies, and imaging were reviewed by me and a management plan was formulated on multidisciplinary rounds with resident Dr. Barr. I agree with their above documented assessment and plan. Not tolerating PS trials. Patient had marked rise in Troponin, indicative of NSTEMI. Started on heparin drip and plavix with beta misa. Cardiology following for eventual PCI. Critical Care Time 35 minutes. Multi-disciplinary rounds were performed with house staff, nursing, speech therapy, respiratory therapy, pharmacy and nutrition with integrated input from the primary team/attending and other consulting services. The documented time is cumulative and includes review of patient data/exams/labs/chart review and examination of the patient on rounds and throughout the day; time is exclusive of any procedures or teaching time.
[2017-02-01] MEDS: Rosuvastatin Calcium 2.5 mg Tab PO SCH (21:23)
[2017-02-02] MEDS: Midazolam 2 MG/2 ML VIAL IVP PRN ×2 (01:00→07:30)
[2017-02-02] MEDS: Piperacillin/Tazobact 3.375 GM in Sodium Chloride 100 ML IVPB SCH ×2 (01:02→07:30)
[2017-02-02] MEDS: (Novolin R) Insulin Human Regular 100 units/ml vial SC SCH ×5 (02:11→22:05)
[2017-02-02] MEDS ORDERED: Midazolam 2 MG/2 ML VIAL IVP ONE (02:39)
[2017-02-02 05:39] LABS: ABG ALLEN TEST POS; ABG MECHANICAL RATE 18; ARTERIAL BLOOD GAS MODE PRVC; ARTERIAL BLOOD HGB O2 SAT 97.2 % (95.0-98.0); ATERIAL BLOOD GAS PEEP 5; CARBOXYHEMOGLOBIN 0.7 % (0.5-1.5); DRAW SITE RR; HHB 1.8 % (0.0-5.0); METHEMOGLOBIN 0.4 % (0.0-3.0)
--- NOTE | 2017-02-02 06:06 | PN ---
DATE: SUBJECTIVE: The patient was seen and examined at the bedside. The patient is intubated. Sister and is on the bedside. The patient looks comfortable, status post rapid response yesterday with respiratory distress, status post right hallux partial amputation postoperative day #1. PHYSICAL EXAMINATION: VITAL SIGNS: Blood pressure 158/80, respiratory rate 20, pulse 95, and oxygenation 100%. HEENT: Head is normocephalic and atraumatic. Eyes closed. Nose patent. Mucous membranes moist. NECK: Supple. The patient is intubated. CHEST: Clear to auscultation. HEART: S1 and S2 positive. ABDOMEN: Soft. Bowel sounds present. No organomegaly. EXTREMITIES: No edema. No cyanosis. Right foot has dressing, status post right hallux partial amputation. LABORATORY DATA: Glucose 156, troponin 27, and BNP 5390. White blood cells 15.4, hemoglobin 8.9, hematocrit 26.8, and platelets 259. BUN 26, creatinine 2.2, glucose 185, calcium 8.5, AST 77, and ALT 36. MEDICATIONS: Tylenol, Plavix, Pepcid, Glucotrol, piperacillin/tazobactam, NS, nitroglycerin, heparin, insulin, Cozaar, Versed, oxycodone, and Crestor. ASSESSMENT AND PLAN: Mr. Jules Campo is 71-year-old male with past medical history of diabetes mellitus, arthritis, hypertension, chronic lower extremity edema, status post right hallux partial amputation, postoperative day #1, intubated due to respiratory distress, elevated troponin, hypertension, and congestive heart failure. According to Dr. Jaimes, after the patient is hemodynamically stable he wanted to do cardiac catheterization. Meanwhile, continue Lopressor, Cozaar, aspirin, and Plavix. The patient had pulmonary edema. IV fluid put on hold. Accu-Chek, glipizide for diabetes mellitus; history of coffee-ground emesis, no feeding; Gram negative nat cultures, right hallux, getting Zosyn, getting heparin drip for DVT, and getting Pepcid for GI prophylaxis. Dr. Morrow is the ID on the case. The patient had non-ST elevation myocardial infarction. Give the patient IV heparin, loading with Plavix, aspirin, and statin. Continue present treatment. Discussion done with green chain offbearer and the patient's nursing staff and the patient's family. We will follow up. Zuleima Jackson MD
--- NOTE | 2017-02-02 06:19 | OP ---
PROCEDURE DATE: 01/31/2017 PREOPERATIVE DIAGNOSIS: Osteomyelitis of right hallux with cellulitis. POSTOPERATIVE DIAGNOSIS: Osteomyelitis of right hallux with cellulitis. PROCEDURE: Proximal amputation of right hallux with incision and drainage. SURGEON: Adrian Zamudio DPM LANGUAGE SPECIALIST: Donna Howell DPM, PGY-2 TYPE OF ANESTHESIA: MAC IV sedation with local. ANESTHESIA ADMINISTERED BY: DIEGO Fisher INDICATION: The patient is a 71-year-old male with the above-mentioned diagnosis. Of note, the patient has failed an outpatient course of antibiotics x5 weeks in duration. The patient has now developed an infection of his hallux with osteomyelitis and now requires surgical intervention. The patient's signed the consent after careful explanation of risks, benefits, complications, and alternatives for the surgical procedure. No guarantees were given nor implied. N.p.o. status was confirmed prior to bringing the patient to the operating room. The patient is receiving IV antibiotics on the floor. PREPARATION: The patient was brought into the operating room and placed in the operating room table in a supine position. A timeout was performed for identification of the correct patient and procedure. After induction of IV sedation, the patient received a total of 20 mL consisting of a 1:1 mixture, 1% lidocaine plain to 0.5% Marcaine plain in local block fashion to the right foot. The right foot was then prepped and draped in the usual sterile manner and the procedure began. No tourniquet was used for the procedure. PROCEDURE: Partial amputation of right hallux with incision and drainage: Attention was then directed to the right hallux where an infected ulceration was noted at the distal aspect of the toe. Using a #15 blade, a fishmouth type incision was made at the level of the hallux interphalangeal joint of the right foot. The incision was then extended down to the subcutaneous layers at the level of bone. Care was taken to leave more soft tissue plantarly with the goal of creating a flap, using a bone clamp to stabilize the hallux. The distal phalanx was then disarticulated at the level of the hallux interphalangeal joint using a sagittal saw. Approximately, the distal one-third of the proximal phalanx was then resected and passed from the operative field. All specimens were sent to pathology. Wound cultures were then taken from the amputation site. Using a fresh #15 blade, all necrotic and nonviable tissue was then excisionally debrided from the surgical site. All bleeders were cauterized as necessary and the soft tissue flap debulked as needed with skin edges trimmed to create a plantar flap. The wound was then copiously flushed with sterile saline using a bulb syringe. Surgical site was then suture closed using #3-0 chromic gut suture for the deep layers. The skin layer was then reapproximated using both 3-0 nylon and 3-0 chromic gut sutures. The surgical wound was then dressed with Xeroform, 4 x 4 gauze, fluffs and a loosely applied Kerlix dressing. POSTOPERATIVE CONDITION: The patient tolerated the anesthesia and procedure well and was escorted to the recovery room with his vital signs stable and neurovascular status intact to his right foot. The patient is to remain completely nonweightbearing with strict bedrest at this time and is to put no weight whatsoever to his right foot. The patient will be returned to the floor and we will follow the patient closely on the floor. The patient is to follow up with Dr. Zamudio as an outpatient upon discharge. Donna Howell DPM Adrian Zamudio DPM [facility]
[2017-02-02 06:29] LABS: POTASSIUM 3.8 mmol/L (3.6-5.2)
[2017-02-02 06:31] LABS: BASO # 0.1 K/uL (0.0-0.2); BASO % 0.4 % (0.0-2.0); EOS # 0.2 K/uL (0.0-0.7); EOS % 1.5 % (0.0-4.0); HEMATOCRIT 23.9 % (35.0-51.0); LYMPH # 1.4 K/uL (1.0-4.3); LYMPH % 9.1 % (20.0-40.0); MEAN CELL VOLUME 87.7 fL (80.0-94.0); MEAN CORPUSCULAR HEMOGLOBIN 28.9 pg (27.0-31.0); MEAN CORPUSCULAR HGB CONC 32.9 g/dL (33.0-37.0); MEAN PLATELET VOLUME 8.1 fL (7.2-11.7); MONO # 1.3 K/uL (0.0-0.8); MONO % 8.7 % (0.0-10.0); PLATELET COUNT 236 K/uL (130-400); RED CELL DISTRIBUTION WIDTH 13.6 % (11.5-14.5)
[2017-02-02 06:32] LABS: ALB/GLOB RATIO 0.9 (1.0-2.1); BILIRUBIN,TOTAL 0.8 mg/dL (0.2-1.3); CALCIUM 8.8 mg/dl (8.6-10.4); PHOSPHOROUS 4.6 mg/dL (2.5-4.5); TOTAL PROTEIN 6.2 g/dL (6.3-8.3)
[2017-02-02 06:33] LABS: MAGNESIUM 1.9 mg/dL (1.6-2.3)
[2017-02-02] MEDS: Heparin25000 units/250ml 1/2NS 25,000 UNITS/250 ML BAG IV PRN (07:31)
[2017-02-02 08:05] LABS: EOSINOPHIL 3 % (0-4); NEUTROPHIL 87 % (50-75); TOTAL CELLS COUNTED 100
--- NOTE | 2017-02-02 08:07 | CP.PCM.PN ---
<KAHLIL WILLIAMSON - Last Filed: 02/02/17 12:18> Subjective - Date & Time of Evaluation Date of Evaluation: 02/02/17 Time of Evaluation: 07:10 - Subjective Subjective: Kahlil Williamson DO PGY1 - Cardiology Progress Note for Dr. Jaimes Patient seen and examined at bedside in the ICU. Patient remains intubated, but is awake and alert, off sedation. Patient expresses thirst and hunger, in addition to discomfort from the ET tube. When prompted, he denies any chest pain. Objective - Vital Signs/Intake and Output Vital Signs (last 24 hours): Temp Pulse Resp BP Pulse Ox 98.5 F 68 18 131/60 100 01/31/17 19:40 02/02/17 06:03 02/02/17 06:03 02/02/17 06:03 02/02/17 06:03 Intake and Output: 02/02/17 02/02/17 06:59 18:59 Intake Total 282.4 250 Output Total 1270 Balance -987.6 250 - Medications Medications: Current Medications Acetaminophen (Tylenol 325mg Tab) 650 mg PO Q6 PRN PRN Reason: Pain, moderate (4-7) Clopidogrel Bisulfate (Plavix) 75 mg PO DAILY [facility] Famotidine (Pepcid) 20 mg IVP DAILY [facility] Glipizide (Glucotrol) 5 mg PO BID [facility] Piperacillin Sod/Tazobactam (Sod 3.375 gm/ Sodium Chloride) 100 mls @ 200 mls/ hr IVPB Q6H [facility] Last Admin: 02/02/17 07:30 Dose: 200 mls/hr Sodium Chloride (Sodium Chloride 0.9%) 1,000 mls @ 30 mls/hr IV .Q24H [facility] Last Admin: 01/31/17 18:55 Dose: 30 mls/hr Nitroglycerin/Dextrose (Nitroglycerin 50 Mg/250 Ml D5w) 50 mg in 250 mls @ 1.5 mls/hr IV .Q24H [facility]; 5 MCG/MIN PRN Reason: Protocol Last Admin: 01/31/17 22:24 Dose: Not Given Heparin Sodium/Sodium Chloride (Heparin 72514 Units/250ml 1/2 Normal Saline) 25 ,000 units in 250 mls @ 15.24 mls/hr IV .[id number] PRN; Protocol; 12 UNITS/KG/HR PRN Reason: PROTOCOL Last Admin: 02/02/17 07:31 Dose: 12 units/kg/hr, 15.24 mls/hr Insulin Human Regular (Novolin R) 0 unit SC Q6H [facility] PRN Reason: Protocol Last Admin: 02/02/17 06:14 Dose: Not Given Losartan Potassium (Cozaar) 50 mg PO DAILY [facility] Last Admin: 02/01/17 10:48 Dose: 50 mg Metoprolol Tartrate (Lopressor) 25 mg PO Q12 [facility] Last Admin: 02/01/17 22:30 Dose: 25 mg Midazolam HCl (Versed Inj) 2 mg IVP Q4H PRN PRN Reason: Agitation Last Admin: 02/02/17 07:30 Dose: 2 mg Oxycodone/Acetaminophen (Percocet 5/325 Mg Tab) 1 tab PO Q6H PRN PRN Reason: Pain, severe (8-10) Stop: 02/03/17 12:45 Last Admin: 01/31/17 12:54 Dose: 1 tab Rosuvastatin Calcium (Crestor) 2.5 mg PO HS [facility] Last Admin: 02/01/17 21:23 Dose: 2.5 mg - Labs Labs: 02/02/17 06:11 02/02/17 06:11 PT 13.1 SECONDS (9.7-12.2) H 01/31/17 07:15 INR 1.2 01/31/17 07:15 APTT 72 SECONDS (21-34) H D 02/02/17 06:11 - Constitutional Appears: No Acute Distress, Chronically Ill - Head Exam Head Exam: ATRAUMATIC, NORMOCEPHALIC - Eye Exam Eye Exam: EOMI, Normal appearance - ENT Exam ENT Exam: Mucous Membranes Dry - Neck Exam Neck Exam: Normal Inspection - Respiratory Exam Respiratory Exam: Clear to Ausculation Bilateral. absent: Rales, Rhonchi, Wheezes Additional comments: Patient intubated on PRVC 60/8/16/500 - Cardiovascular Exam Cardiovascular Exam: RRR, +S1, +S2 - GI/Abdominal Exam GI & Abdominal Exam: Soft. absent: Tenderness - Extremities Exam Extremities Exam: Pedal Edema (trace). absent: Calf Tenderness - Neurological Exam Neurological Exam: Alert, Awake - Psychiatric Exam Psychiatric exam: Normal Affect, Normal Mood - Skin Skin Exam: Dry, Intact Assessment and Plan (1) NSTEMI (non-ST elevated myocardial infarction) Assessment & Plan: Patient had ELEMENT BURNER called for respiratory distress post-op Noted to have NSTEMI, positive troponins Repeat troponins plateaued then trended down Continue heparin drip, BB, ASA, Plavix, Statin Repeat echo ordered; pending Plan for LHCx with PCI when patient is more stable and if extubated Status: Acute (2) CAD (coronary artery disease) Status: Acute (3) Osteomyelitis Assessment & Plan: Patient initially presented with R great toe osteomyelitis, now s/p amputation, POD 2 Podiatry following Status: Acute (4) Dyslipidemia Assessment & Plan: Continue statin Status: Chronic (5) HTN (hypertension) Assessment & Plan: BP stable Continue current regimen Status: Chronic (6) Diabetes mellitus Assessment & Plan: Stable Management per primary team Maintain euglycemia Status: Chronic <Donaldo Jaimes - Last Filed: 02/02/17 15:40> Objective - Vital Signs/Intake and Output Vital Signs (last 24 hours): Temp Pulse Resp BP Pulse Ox 97.4 F L 73 19 154/80 H 100 02/02/17 14:51 02/02/17 15:06 02/02/17 15:06 02/02/17 15:06 02/02/17 15:06 Intake and Output: 02/02/17 02/02/17 06:59 18:59 Intake Total 282.4 876.8 Output Total 1270 810 Balance -987.6 66.8 - Medications Medications: Current Medications Acetaminophen (Tylenol 325mg Tab) 650 mg PO Q6 PRN PRN Reason: Pain, moderate (4-7) Last Admin: 02/02/17 13:40 Dose: 650 mg Clopidogrel Bisulfate (Plavix) 75 mg PO DAILY [facility] Last Admin: 02/02/17 09:24 Dose: 75 mg Famotidine (Pepcid) 20 mg IVP DAILY [facility] Last Admin: 02/02/17 09:24 Dose: 20 mg Glipizide (Glucotrol) 5 mg PO BID [facility] Last Admin: 02/02/17 09:24 Dose: Not Given Heparin Sodium/Sodium Chloride (Heparin 02240 Units/250ml 1/2 Normal Saline) 25 ,000 units in 250 mls @ 15.24 mls/hr IV .[id number] PRN; Protocol; 12 UNITS/KG/HR PRN Reason: PROTOCOL Stop: 02/03/17 16:01 Last Admin: 02/02/17 07:31 Dose: 12 units/kg/hr, 15.24 mls/hr Piperacillin Sod/Tazobactam (Sod 2.25 gm/ Sodium Chloride) 100 mls @ 200 mls/ hr IVPB Q6 [facility] Last Admin: 02/02/17 12:30 Dose: 200 mls/hr Insulin Human Regular (Novolin R) 0 unit SC Q6H [facility] PRN Reason: Protocol Last Admin: 02/02/17 12:16 Dose: Not Given Losartan Potassium (Cozaar) 50 mg PO DAILY [facility] Last Admin: 02/02/17 09:24 Dose: 50 mg Metoprolol Tartrate (Lopressor) 25 mg PO Q12 [facility] Last Admin: 02/02/17 09:24 Dose: 25 mg Rosuvastatin Calcium (Crestor) 2.5 mg PO HS [facility] Last Admin: 02/01/17 21:23 Dose: 2.5 mg - Labs Labs: 02/02/17 11:30 02/02/17 06:11 PT 13.1 SECONDS (9.7-12.2) H 01/31/17 07:15 INR 1.2 01/31/17 07:15 APTT 72 SECONDS (21-34) H D 02/02/17 06:11 Assessment and Plan (1) NSTEMI (non-ST elevated myocardial infarction) Status: Acute (2) HTN (hypertension) Status: Chronic (3) Dyslipidemia Status: Chronic (4) CAD (coronary artery disease) Status: Acute Attending/Attestation - Attestation I have personally seen and examined this patient.: Yes I have fully participated in the care of the patient.: Yes I have reviewed all pertinent clinical information, including history, physical exam and plan: Yes Notes (Text): 02/02/17 15:40 plan for extubation later today cont IV heparin per [facility] protocol cont DAPT cont BB, statins, nitrates Cath on Sunday at [facility] to be arranged
--- NOTE | 2017-02-02 08:21 | RAD ---
HISTORY: intubated COMPARISON: Comparison is made to the previous study. FINDINGS: LUNGS: The ET tube is again seen at appropriate position. No significant interval change in the lungs noted since the previous exam. PLEURA: No significant pleural effusion identified, no pneumothorax apparent. CARDIOVASCULAR: Possible mild cardiomegaly. OSSEOUS STRUCTURES: No significant abnormalities. VISUALIZED UPPER ABDOMEN: Normal. OTHER FINDINGS: None. IMPRESSION: Overall no significant interval change since the previous study. Appropriate position of the ETT.
--- NOTE | 2017-02-02 10:54 | CP.PCM.PN ---
Subjective - Date & Time of Evaluation Date of Evaluation: 02/02/17 Time of Evaluation: 11:20 - Subjective Subjective: Podiatry Progress Note - Dr. Tate: This is a 71 yo male patient seen at bedside in ICU this morning POD #2 partial amp right hallux. Pt is seen resting in bed at time of visit, presently intubated. Appears somewhat lethargic however AAOx3, NAD. Pt able to shake/nod head to yes/no questions. Says he is [age] today and admits to tube discomfort. Denies any pain to the right lower extremity today. Seen with offloading boots applied to bl lower extremities. Denies f/n/v/c/sob/cp/ weakness or dizziness today. Objective - Vital Signs/Intake and Output Vital Signs (last 24 hours): Temp Pulse Resp BP Pulse Ox 98.4 F 74 11 L 125/59 L 100 02/02/17 08:00 02/02/17 10:03 02/02/17 10:03 02/02/17 10:03 02/02/17 10:03 Intake and Output: 02/02/17 02/02/17 06:59 18:59 Intake Total 282.4 530.8 Output Total 1270 150 Balance -987.6 380.8 - Medications Medications: Current Medications Acetaminophen (Tylenol 325mg Tab) 650 mg PO Q6 PRN PRN Reason: Pain, moderate (4-7) Clopidogrel Bisulfate (Plavix) 75 mg PO DAILY [facility] Last Admin: 02/02/17 09:24 Dose: 75 mg Famotidine (Pepcid) 20 mg IVP DAILY [facility] Last Admin: 02/02/17 09:24 Dose: 20 mg Furosemide (Lasix) 40 mg IVP ONCE ONE Stop: 02/02/17 11:01 Glipizide (Glucotrol) 5 mg PO BID [facility] Last Admin: 02/02/17 09:24 Dose: Not Given Piperacillin Sod/Tazobactam (Sod 3.375 gm/ Sodium Chloride) 100 mls @ 200 mls/ hr IVPB Q6H [facility] Last Admin: 02/02/17 07:30 Dose: 200 mls/hr Sodium Chloride (Sodium Chloride 0.9%) 1,000 mls @ 30 mls/hr IV .Q24H [facility] Last Admin: 01/31/17 18:55 Dose: 30 mls/hr Nitroglycerin/Dextrose (Nitroglycerin 50 Mg/250 Ml D5w) 50 mg in 250 mls @ 1.5 mls/hr IV .Q24H [facility]; 5 MCG/MIN PRN Reason: Protocol Last Admin: 01/31/17 22:24 Dose: Not Given Heparin Sodium/Sodium Chloride (Heparin 96027 Units/250ml 1/2 Normal Saline) 25 ,000 units in 250 mls @ 15.24 mls/hr IV .[id number] PRN; Protocol; 12 UNITS/KG/HR PRN Reason: PROTOCOL Last Admin: 02/02/17 07:31 Dose: 12 units/kg/hr, 15.24 mls/hr Insulin Human Regular (Novolin R) 0 unit SC Q6H [facility] PRN Reason: Protocol Last Admin: 02/02/17 06:14 Dose: Not Given Losartan Potassium (Cozaar) 50 mg PO DAILY [facility] Last Admin: 02/02/17 09:24 Dose: 50 mg Metoprolol Tartrate (Lopressor) 25 mg PO Q12 [facility] Last Admin: 02/02/17 09:24 Dose: 25 mg Midazolam HCl (Versed Inj) 2 mg IVP Q4H PRN PRN Reason: Agitation Last Admin: 02/02/17 07:30 Dose: 2 mg Oxycodone/Acetaminophen (Percocet 5/325 Mg Tab) 1 tab PO Q6H PRN PRN Reason: Pain, severe (8-10) Stop: 02/03/17 12:45 Last Admin: 01/31/17 12:54 Dose: 1 tab Rosuvastatin Calcium (Crestor) 2.5 mg PO HS [facility] Last Admin: 02/01/17 21:23 Dose: 2.5 mg - Labs Labs: 02/02/17 06:11 02/02/17 06:11 PT 13.1 SECONDS (9.7-12.2) H 01/31/17 07:15 INR 1.2 01/31/17 07:15 APTT 72 SECONDS (21-34) H D 02/02/17 06:11 - Constitutional Appears: Non-toxic, No Acute Distress - Extremities Exam Extremities Exam: absent: Calf Tenderness Additional comments: Dress to RLE appears c/d/i with no strikethrough Offloading boots seen applied to bl LE - Neurological Exam Neurological Exam: Alert, Awake, Oriented x3 Assessment and Plan - Assessment and Plan (Free Text) Assessment: 71 yo male patient with ulceration and +OM right hallux 2/2 diabetic neuropathy POD #2 partial amputation right hallux Plan: Pt S&E at bedside in ICU Chart, labs and vitals reviewed: afebrile, wbc elevated today 15.0 Wound cx (01/31 intra-op): Proteus M, gram neg nat (prelim) Dressing to right foot let clean, dry and intact c/w offloading boot bl LE Per cardiology, pt had NSTEMI post-op, f/u recs c/w IV abx per ID Stable per podiatry Will follow closely
[2017-02-02] MEDS ORDERED: Piperacillin/Tazobact 2.25 GM in Sodium Chloride 100 ML IVPB SCH (11:01)
--- NOTE | 2017-02-02 12:21 | CP.CCUPN ---
<MomoLoisjose francisco E - Last Filed: 02/02/17 14:17> CCU Subjective - Physician Review Subjective (Free Text): Patient was seen and examined at bedside. Patient was intubated with plans to extubate later today. Unable to evaluate ROS as patient was still intubated during the encounter. CCU Objective - Vital Signs / Intake & Output Vital Signs (Last 4 hours): Vital Signs Pulse Resp BP Pulse Ox 02/02/17 10:03 74 11 L 125/59 L 100 02/02/17 10:00 68 17 100 02/02/17 09:24 125/53 L 02/02/17 09:03 63 14 125/53 L 100 02/02/17 09:00 60 15 100 Intake and Output (Last 8hrs): Intake & Output 02/01/17 02/02/17 02/02/17 22:59 06:59 14:59 Intake Total 283.0 121.6 530.8 Output Total 1280 490 150 Balance -997.0 -368.4 380.8 Weight 280 lb Intake: IV 250 Intake, IV Amount 283.0 121.6 160.8 Left Hand 83.0 121.6 60.8 Right Hand 150 0 0 Right PICC 50 100 Oral 0 120 Output: Gastric Amount 400 Stomach 400 Urine 880 490 150 Urethral (Carr) 880 490 150 Other: # Bowel Movements 0 0 - Physical Exam Head: Positive for: Atraumatic, Normocephalic Pupils: Negative for: PERRL Extroacular Muscles: Negative for: EOMI Respiratory/Chest: Positive for: Clear to Auscultation Cardiovascular: Positive for: Regular Rate and Rhythm, Normal S1, S2 Abdomen: Positive for: Distention, Normal Bowel Sounds. Negative for: Tenderness Skin: Positive for: Warm Psychiatric: Negative for: Alert, Oriented x 3 - Medications Active Medications: Active Medications Generic Name Dose Route Start Last Admin Trade Name Freq PRN Reason Stop Dose Admin Acetaminophen 650 mg 01/30/17 15:56 Tylenol 325mg Tab PO Q6 PRN Pain, moderate (4-7) Clopidogrel Bisulfate 75 mg 02/02/17 10:00 02/02/17 09:24 Plavix PO 75 mg DAILY [facility] Administration Famotidine 20 mg 02/02/17 10:00 02/02/17 09:24 Pepcid IVP 20 mg DAILY [facility] Administration Glipizide 5 mg 02/02/17 10:00 02/02/17 09:24 Glucotrol PO Not Given BID [facility] Heparin Sodium/Sodium Chloride 25,000 units in 250 mls @ 15.24 mls/hr 16:00 02/02/17 07:31 Heparin 16295 Units/250ml 1/2 Normal Saline IV 12 units/kg/hr .[id number] PRN 15.24 mls/hr PROTOCOL Administration Protocol 12 UNITS/KG/HR Piperacillin Sod/Tazobactam 100 mls @ 200 mls/hr 02/02/17 12:00 Sod 2.25 gm/ Sodium Chloride IVPB Q6 [facility] Insulin Human Regular 0 unit 02/01/17 12:00 02/02/17 12:16 Novolin R SC Not Given Q6H [facility] Protocol Losartan Potassium 50 mg 01/30/17 16:30 02/02/17 09:24 Cozaar PO 50 mg DAILY [facility] Administration Metoprolol Tartrate 25 mg 02/01/17 22:00 02/02/17 09:24 Lopressor PO 25 mg Q12 [facility] Administration Midazolam HCl 2 mg 02/01/17 13:28 02/02/17 07:30 Versed Inj IVP 2 mg Q4H PRN Administration Agitation Oxycodone/Acetaminophen 1 tab 01/31/17 12:44 01/31/17 12:54 Percocet 5/325 Mg Tab PO 02/03/17 12:45 1 tab Q6H PRN Administration Pain, severe (8-10) Rosuvastatin Calcium 2.5 mg 01/30/17 22:30 02/01/17 21:23 Crestor PO 2.5 mg HS [facility] Administration - Patient Studies Lab Studies: Microbiology Studies 01/30/17 07:55 Blood Culture - Preliminary Blood NO GROWTH AFTER 3 DAYS 01/30/17 08:10 Blood Culture - Preliminary Blood NO GROWTH AFTER 3 DAYS 01/31/17 10:00 Gram Stain - Final Foot - Right Wound Culture - Preliminary Proteus Mirabilis Gram Negative Lee 01/30/17 08:15 Gram Stain - Final Toe Wound Culture - Final Proteus Mirabilis Klebsiella Oxytoca Lab Studies 02/02/17 02/02/17 02/02/17 Range/Units 11:30 07:22 06:13 WBC (4.8-10.8) K/uL RBC (4.40-5.90) Mil/uL Hgb 8.8 L (12.0-18.0) g/dL Hct 27.0 L (35.0-51.0) % MCV (80.0-94.0) fL MCH (27.0-31.0) pg MCHC (33.0-37.0) g/dL RDW (11.5-14.5) % Plt Count (130-400) K/uL MPV (7.2-11.7) fL Neut % (Auto) (50.0-75.0) % Lymph % (Auto) (20.0-40.0) % Gove % (Auto) (0.0-10.0) % Eos % (Auto) (0.0-4.0) % Baso % (Auto) (0.0-2.0) % Neut # (1.8-7.0) K/uL Lymph # (1.0-4.3) K/uL Gove # (0.0-0.8) K/uL Eos # (0.0-0.7) K/uL Baso # (0.0-0.2) K/uL Neutrophils % (Manual) (50-75) % Band Neutrophils % (0-2) % Lymphocytes % (Manual) (20-40) % Monocytes % (Manual) (0-10) % Eosinophils % (Manual) (0-4) % Platelet Estimate (NORMAL) RBC Morphology APTT (21-34) SECONDS Puncture Site pCO2 (35-45) mm/Hg pO2 (80-100) mm/Hg HCO3 (21-28) mmol/L ABG pH (7.35-7.45) ABG Total CO2 (22-28) mmol/L ABG O2 Saturation (95-98) % ABG Base Excess (-2.0-3.0) mmol/L ABG Hemoglobin (11.7-17.4) g/dL ABG Carboxyhemoglobin (0.5-1.5) % POC ABG HHb (Measured) (0.0-5.0) % ABG Methemoglobin (0.0-3.0) % James Test A-a O2 Difference mm/Hg Respiratory Index Hgb O2 Saturation (95.0-98.0) % Vent Mode Mechanical Rate FiO2 % Tidal Volume PEEP Sodium (132-148) mmol/L Potassium (3.6-5.2) mmol/L Chloride (98-107) mmol/L Carbon Dioxide (22-30) mmol/L Anion Gap (10-20) BUN (9-20) mg/dL Creatinine (0.8-1.5) MG/DL Est GFR ( Amer) Est GFR (Non-Af Amer) POC Glucose (mg/dL) 184 H 136 H (65-110) mg/dL Random Glucose (75-110) mg/dL Calcium (8.6-10.4) mg/dl Phosphorus (2.5-4.5) mg/dL Magnesium (1.6-2.3) mg/dL Total Bilirubin (0.2-1.3) mg/dL AST (17-59) U/L ALT (21-72) U/L Alkaline Phosphatase (38-126) U/L Total Creatine Kinase (55-170) U/L CK-MB (Mass) (0.0-3.38) ng/mL Troponin I (0.00-0.120) ng/mL Troponin I, Quant (0.00-0.120) ng/mL Total Protein (6.3-8.3) g/dL Albumin (3.5-5.0) g/dL Globulin (2.2-3.9) gm/dL Albumin/Globulin Ratio (1.0-2.1) 02/02/17 02/02/17 02/02/17 Range/Units 06:11 06:11 06:11 WBC 15.0 H (4.8-10.8) K/uL RBC 2.73 L (4.40-5.90) Mil/uL Hgb 7.9 L (12.0-18.0) g/dL Hct 23.9 L (35.0-51.0) % MCV 87.7 (80.0-94.0) fL MCH 28.9 (27.0-31.0) pg MCHC 32.9 L (33.0-37.0) g/dL RDW 13.6 (11.5-14.5) % Plt Count 236 (130-400) K/uL MPV 8.1 (7.2-11.7) fL Neut % (Auto) 80.3 H (50.0-75.0) % Lymph % (Auto) 9.1 L (20.0-40.0) % Gove % (Auto) 8.7 (0.0-10.0) % Eos % (Auto) 1.5 (0.0-4.0) % Baso % (Auto) 0.4 (0.0-2.0) % Neut # 12.0 H (1.8-7.0) K/uL Lymph # 1.4 (1.0-4.3) K/uL Gove # 1.3 H (0.0-0.8) K/uL Eos # 0.2 (0.0-0.7) K/uL Baso # 0.1 (0.0-0.2) K/uL Neutrophils % (Manual) 87 H (50-75) % Band Neutrophils % 1 (0-2) % Lymphocytes % (Manual) 5 L (20-40) % Monocytes % (Manual) 4 (0-10) % Eosinophils % (Manual) 3 (0-4) % Platelet Estimate Normal (NORMAL) RBC Morphology Normal APTT 72 H D (21-34) SECONDS Puncture Site pCO2 (35-45) mm/Hg pO2 (80-100) mm/Hg HCO3 (21-28) mmol/L ABG pH (7.35-7.45) ABG Total CO2 (22-28) mmol/L ABG O2 Saturation (95-98) % ABG Base Excess (-2.0-3.0) mmol/L ABG Hemoglobin (11.7-17.4) g/dL ABG Carboxyhemoglobin (0.5-1.5) % POC ABG HHb (Measured) (0.0-5.0) % ABG Methemoglobin (0.0-3.0) % James Test A-a O2 Difference mm/Hg Respiratory Index Hgb O2 Saturation (95.0-98.0) % Vent Mode Mechanical Rate FiO2 % Tidal Volume PEEP Sodium 140 (132-148) mmol/L Potassium 3.8 (3.6-5.2) mmol/L Chloride 103 (98-107) mmol/L Carbon Dioxide 21 L (22-30) mmol/L Anion Gap 20 (10-20) BUN 29 H (9-20) mg/dL Creatinine 2.7 H (0.8-1.5) MG/DL Est GFR ( Amer) 28 Est GFR (Non-Af Amer) 23 POC Glucose (mg/dL) (65-110) mg/dL Random Glucose 138 H (75-110) mg/dL Calcium 8.8 (8.6-10.4) mg/dl Phosphorus 4.6 H (2.5-4.5) mg/dL Magnesium 1.9 (1.6-2.3) mg/dL Total Bilirubin 0.8 (0.2-1.3) mg/dL AST 74 H (17-59) U/L ALT 34 (21-72) U/L Alkaline Phosphatase 49 (38-126) U/L Total Creatine Kinase (55-170) U/L CK-MB (Mass) (0.0-3.38) ng/mL Troponin I (0.00-0.120) ng/mL Troponin I, Quant (0.00-0.120) ng/mL Total Protein 6.2 L (6.3-8.3) g/dL Albumin 2.9 L (3.5-5.0) g/dL Globulin 3.3 (2.2-3.9) gm/dL Albumin/Globulin Ratio 0.9 L (1.0-2.1) 02/02/17 02/02/17 02/01/17 Range/Units 05:20 00:55 22:55 WBC (4.8-10.8) K/uL RBC (4.40-5.90) Mil/uL Hgb (12.0-18.0) g/dL Hct (35.0-51.0) % MCV (80.0-94.0) fL MCH (27.0-31.0) pg MCHC (33.0-37.0) g/dL RDW (11.5-14.5) % Plt Count (130-400) K/uL MPV (7.2-11.7) fL Neut % (Auto) (50.0-75.0) % Lymph % (Auto) (20.0-40.0) % Gove % (Auto) (0.0-10.0) % Eos % (Auto) (0.0-4.0) % Baso % (Auto) (0.0-2.0) % Neut # (1.8-7.0) K/uL Lymph # (1.0-4.3) K/uL Gove # (0.0-0.8) K/uL Eos # (0.0-0.7) K/uL Baso # (0.0-0.2) K/uL Neutrophils % (Manual) (50-75) % Band Neutrophils % (0-2) % Lymphocytes % (Manual) (20-40) % Monocytes % (Manual) (0-10) % Eosinophils % (Manual) (0-4) % Platelet Estimate (NORMAL) RBC Morphology APTT (21-34) SECONDS Puncture Site Rr pCO2 40 (35-45) mm/Hg pO2 168 H (80-100) mm/Hg HCO3 22.9 (21-28) mmol/L ABG pH 7.36 (7.35-7.45) ABG Total CO2 23.8 (22-28) mmol/L ABG O2 Saturation 98.2 H (95-98) % ABG Base Excess -2.6 L (-2.0-3.0) mmol/L ABG Hemoglobin 8.1 L (11.7-17.4) g/dL ABG Carboxyhemoglobin 0.7 (0.5-1.5) % POC ABG HHb (Measured) 1.8 (0.0-5.0) % ABG Methemoglobin 0.4 (0.0-3.0) % James Test Pos A-a O2 Difference 210.0 mm/Hg Respiratory Index 1.3 Hgb O2 Saturation 97.2 (95.0-98.0) % Vent Mode Prvc Mechanical Rate 18 FiO2 60.0 % Tidal Volume 500 PEEP 5 Sodium (132-148) mmol/L Potassium (3.6-5.2) mmol/L Chloride (98-107) mmol/L Carbon Dioxide (22-30) mmol/L Anion Gap (10-20) BUN (9-20) mg/dL Creatinine (0.8-1.5) MG/DL Est GFR ( Amer) Est GFR (Non-Af Amer) POC Glucose (mg/dL) 137 H (65-110) mg/dL Random Glucose (75-110) mg/dL Calcium (8.6-10.4) mg/dl Phosphorus (2.5-4.5) mg/dL Magnesium (1.6-2.3) mg/dL Total Bilirubin (0.2-1.3) mg/dL AST (17-59) U/L ALT (21-72) U/L Alkaline Phosphatase (38-126) U/L Total Creatine Kinase 381 H (55-170) U/L CK-MB (Mass) 9.15 H (0.0-3.38) ng/mL Troponin I (0.00-0.120) ng/mL Troponin I, Quant 17.8000 H* (0.00-0.120) ng/mL Total Protein (6.3-8.3) g/dL Albumin (3.5-5.0) g/dL Globulin (2.2-3.9) gm/dL Albumin/Globulin Ratio (1.0-2.1) 02/01/17 02/01/17 02/01/17 Range/Units 22:55 17:49 17:15 WBC (4.8-10.8) K/uL RBC (4.40-5.90) Mil/uL Hgb (12.0-18.0) g/dL Hct (35.0-51.0) % MCV (80.0-94.0) fL MCH (27.0-31.0) pg MCHC (33.0-37.0) g/dL RDW (11.5-14.5) % Plt Count (130-400) K/uL MPV (7.2-11.7) fL Neut % (Auto) (50.0-75.0) % Lymph % (Auto) (20.0-40.0) % Gove % (Auto) (0.0-10.0) % Eos % (Auto) (0.0-4.0) % Baso % (Auto) (0.0-2.0) % Neut # (1.8-7.0) K/uL Lymph # (1.0-4.3) K/uL Gove # (0.0-0.8) K/uL Eos # (0.0-0.7) K/uL Baso # (0.0-0.2) K/uL Neutrophils % (Manual) (50-75) % Band Neutrophils % (0-2) % Lymphocytes % (Manual) (20-40) % Monocytes % (Manual) (0-10) % Eosinophils % (Manual) (0-4) % Platelet Estimate (NORMAL) RBC Morphology APTT 80 H D (21-34) SECONDS Puncture Site pCO2 (35-45) mm/Hg pO2 (80-100) mm/Hg HCO3 (21-28) mmol/L ABG pH (7.35-7.45) ABG Total CO2 (22-28) mmol/L ABG O2 Saturation (95-98) % ABG Base Excess (-2.0-3.0) mmol/L ABG Hemoglobin (11.7-17.4) g/dL ABG Carboxyhemoglobin (0.5-1.5) % POC ABG HHb (Measured) (0.0-5.0) % ABG Methemoglobin (0.0-3.0) % James Test A-a O2 Difference mm/Hg Respiratory Index Hgb O2 Saturation (95.0-98.0) % Vent Mode Mechanical Rate FiO2 % Tidal Volume PEEP Sodium (132-148) mmol/L Potassium (3.6-5.2) mmol/L Chloride (98-107) mmol/L Carbon Dioxide (22-30) mmol/L Anion Gap (10-20) BUN (9-20) mg/dL Creatinine (0.8-1.5) MG/DL Est GFR ( Amer) Est GFR (Non-Af Amer) POC Glucose (mg/dL) 175 H (65-110) mg/dL Random Glucose (75-110) mg/dL Calcium (8.6-10.4) mg/dl Phosphorus (2.5-4.5) mg/dL Magnesium (1.6-2.3) mg/dL Total Bilirubin (0.2-1.3) mg/dL AST (17-59) U/L ALT (21-72) U/L Alkaline Phosphatase (38-126) U/L Total Creatine Kinase (55-170) U/L CK-MB (Mass) (0.0-3.38) ng/mL Troponin I 20.6000 H* (0.00-0.120) ng/mL Troponin I, Quant (0.00-0.120) ng/mL Total Protein (6.3-8.3) g/dL Albumin (3.5-5.0) g/dL Globulin (2.2-3.9) gm/dL Albumin/Globulin Ratio (1.0-2.1) 02/01/17 02/01/17 Range/Units 14:56 11:16 WBC (4.8-10.8) K/uL RBC (4.40-5.90) Mil/uL Hgb (12.0-18.0) g/dL Hct (35.0-51.0) % MCV (80.0-94.0) fL MCH (27.0-31.0) pg MCHC (33.0-37.0) g/dL RDW (11.5-14.5) % Plt Count (130-400) K/uL MPV (7.2-11.7) fL Neut % (Auto) (50.0-75.0) % Lymph % (Auto) (20.0-40.0) % Gove % (Auto) (0.0-10.0) % Eos % (Auto) (0.0-4.0) % Baso % (Auto) (0.0-2.0) % Neut # (1.8-7.0) K/uL Lymph # (1.0-4.3) K/uL Gove # (0.0-0.8) K/uL Eos # (0.0-0.7) K/uL Baso # (0.0-0.2) K/uL Neutrophils % (Manual) (50-75) % Band Neutrophils % (0-2) % Lymphocytes % (Manual) (20-40) % Monocytes % (Manual) (0-10) % Eosinophils % (Manual) (0-4) % Platelet Estimate (NORMAL) RBC Morphology APTT 33 (21-34) SECONDS Puncture Site pCO2 (35-45) mm/Hg pO2 (80-100) mm/Hg HCO3 (21-28) mmol/L ABG pH (7.35-7.45) ABG Total CO2 (22-28) mmol/L ABG O2 Saturation (95-98) % ABG Base Excess (-2.0-3.0) mmol/L ABG Hemoglobin (11.7-17.4) g/dL ABG Carboxyhemoglobin (0.5-1.5) % POC ABG HHb (Measured) (0.0-5.0) % ABG Methemoglobin (0.0-3.0) % James Test A-a O2 Difference mm/Hg Respiratory Index Hgb O2 Saturation (95.0-98.0) % Vent Mode Mechanical Rate FiO2 % Tidal Volume PEEP Sodium (132-148) mmol/L Potassium (3.6-5.2) mmol/L Chloride (98-107) mmol/L Carbon Dioxide (22-30) mmol/L Anion Gap (10-20) BUN (9-20) mg/dL Creatinine (0.8-1.5) MG/DL Est GFR ( Amer) Est GFR (Non-Af Amer) POC Glucose (mg/dL) (65-110) mg/dL Random Glucose (75-110) mg/dL Calcium (8.6-10.4) mg/dl Phosphorus (2.5-4.5) mg/dL Magnesium (1.6-2.3) mg/dL Total Bilirubin (0.2-1.3) mg/dL AST (17-59) U/L ALT (21-72) U/L Alkaline Phosphatase (38-126) U/L Total Creatine Kinase (55-170) U/L CK-MB (Mass) (0.0-3.38) ng/mL Troponin I 27.7000 H* (0.00-0.120) ng/mL Troponin I, Quant (0.00-0.120) ng/mL Total Protein (6.3-8.3) g/dL Albumin (3.5-5.0) g/dL Globulin (2.2-3.9) gm/dL Albumin/Globulin Ratio (1.0-2.1) Laboratory Results - last 24 hr 02/01/17 02/01/17 02/01/17 11:16 14:56 17:15 WBC RBC Hgb Hct MCV MCH MCHC RDW Plt Count MPV Neut % (Auto) Lymph % (Auto) Gove % (Auto) Eos % (Auto) Baso % (Auto) Neut # Lymph # Gove # Eos # Baso # Neutrophils % (Manual) Band Neutrophils % Lymphocytes % (Manual) Monocytes % (Manual) Eosinophils % (Manual) Platelet Estimate RBC Morphology APTT 33 Puncture Site pCO2 pO2 HCO3 ABG pH ABG Total CO2 ABG O2 Saturation ABG Base Excess ABG Hemoglobin ABG Carboxyhemoglobin POC ABG HHb (Measured) ABG Methemoglobin James Test A-a O2 Difference Respiratory Index Hgb O2 Saturation Vent Mode Mechanical Rate FiO2 Tidal Volume PEEP Sodium Potassium Chloride Carbon Dioxide Anion Gap BUN Creatinine Est GFR ( Amer) Est GFR (Non-Af Amer) POC Glucose (mg/dL) Random Glucose Calcium Phosphorus Magnesium Total Bilirubin AST ALT Alkaline Phosphatase Total Creatine Kinase CK-MB (Mass) Troponin I 27.7000 H* 20.6000 H* Troponin I, Quant Total Protein Albumin Globulin Albumin/Globulin Ratio 02/01/17 02/01/17 02/01/17 17:49 22:55 22:55 WBC RBC Hgb Hct MCV MCH MCHC RDW Plt Count MPV Neut % (Auto) Lymph % (Auto) Gove % (Auto) Eos % (Auto) Baso % (Auto) Neut # Lymph # Gove # Eos # Baso # Neutrophils % (Manual) Band Neutrophils % Lymphocytes % (Manual) Monocytes % (Manual) Eosinophils % (Manual) Platelet Estimate RBC Morphology APTT 80 H D Puncture Site pCO2 pO2 HCO3 ABG pH ABG Total CO2 ABG O2 Saturation ABG Base Excess ABG Hemoglobin ABG Carboxyhemoglobin POC ABG HHb (Measured) ABG Methemoglobin James Test A-a O2 Difference Respiratory Index Hgb O2 Saturation Vent Mode Mechanical Rate FiO2 Tidal Volume PEEP Sodium Potassium Chloride Carbon Dioxide Anion Gap BUN Creatinine Est GFR ( Amer) Est GFR (Non-Af Amer) POC Glucose (mg/dL) 175 H Random Glucose Calcium Phosphorus Magnesium Total Bilirubin AST ALT Alkaline Phosphatase Total Creatine Kinase 381 H CK-MB (Mass) 9.15 H Troponin I Troponin I, Quant 17.8000 H* Total Protein Albumin Globulin Albumin/Globulin Ratio 02/02/17 02/02/17 02/02/17 00:55 05:20 06:11 WBC 15.0 H RBC 2.73 L Hgb 7.9 L Hct 23.9 L MCV 87.7 MCH 28.9 MCHC 32.9 L RDW 13.6 Plt Count 236 MPV 8.1 Neut % (Auto) 80.3 H Lymph % (Auto) 9.1 L Gove % (Auto) 8.7 Eos % (Auto) 1.5 Baso % (Auto) 0.4 Neut # 12.0 H Lymph # 1.4 Gove # 1.3 H Eos # 0.2 Baso # 0.1 Neutrophils % (Manual) 87 H Band Neutrophils % 1 Lymphocytes % (Manual) 5 L Monocytes % (Manual) 4 Eosinophils % (Manual) 3 Platelet Estimate Normal RBC Morphology Normal APTT Puncture Site Rr pCO2 40 pO2 168 H HCO3 22.9 ABG pH 7.36 ABG Total CO2 23.8 ABG O2 Saturation 98.2 H ABG Base Excess -2.6 L ABG Hemoglobin 8.1 L ABG Carboxyhemoglobin 0.7 POC ABG HHb (Measured) 1.8 ABG Methemoglobin 0.4 James Test Pos A-a O2 Difference 210.0 Respiratory Index 1.3 Hgb O2 Saturation 97.2 Vent Mode Prvc Mechanical Rate 18 FiO2 60.0 Tidal Volume 500 PEEP 5 Sodium Potassium Chloride Carbon Dioxide Anion Gap BUN Creatinine Est GFR ( Amer) Est GFR (Non-Af Amer) POC Glucose (mg/dL) 137 H Random Glucose Calcium Phosphorus Magnesium Total Bilirubin AST ALT Alkaline Phosphatase Total Creatine Kinase CK-MB (Mass) Troponin I Troponin I, Quant Total Protein Albumin Globulin Albumin/Globulin Ratio 02/02/17 02/02/17 02/02/17 06:11 06:11 06:13 WBC RBC Hgb Hct MCV MCH MCHC RDW Plt Count MPV Neut % (Auto) Lymph % (Auto) Gove % (Auto) Eos % (Auto) Baso % (Auto) Neut # Lymph # Gove # Eos # Baso # Neutrophils % (Manual) Band Neutrophils % Lymphocytes % (Manual) Monocytes % (Manual) Eosinophils % (Manual) Platelet Estimate RBC Morphology APTT 72 H D Puncture Site pCO2 pO2 HCO3 ABG pH ABG Total CO2 ABG O2 Saturation ABG Base Excess ABG Hemoglobin ABG Carboxyhemoglobin POC ABG HHb (Measured) ABG Methemoglobin James Test A-a O2 Difference Respiratory Index Hgb O2 Saturation Vent Mode Mechanical Rate FiO2 Tidal Volume PEEP Sodium 140 Potassium 3.8 Chloride 103 Carbon Dioxide 21 L Anion Gap 20 BUN 29 H Creatinine 2.7 H Est GFR ( Amer) 28 Est GFR (Non-Af Amer) 23 POC Glucose (mg/dL) 136 H Random Glucose 138 H Calcium 8.8 Phosphorus 4.6 H Magnesium 1.9 Total Bilirubin 0.8 AST 74 H ALT 34 Alkaline Phosphatase 49 Total Creatine Kinase CK-MB (Mass) Troponin I Troponin I, Quant Total Protein 6.2 L Albumin 2.9 L Globulin 3.3 Albumin/Globulin Ratio 0.9 L 02/02/17 02/02/17 07:22 11:30 WBC RBC Hgb 8.8 L Hct 27.0 L MCV MCH MCHC RDW Plt Count MPV Neut % (Auto) Lymph % (Auto) Gove % (Auto) Eos % (Auto) Baso % (Auto) Neut # Lymph # Gove # Eos # Baso # Neutrophils % (Manual) Band Neutrophils % Lymphocytes % (Manual) Monocytes % (Manual) Eosinophils % (Manual) Platelet Estimate RBC Morphology APTT Puncture Site pCO2 pO2 HCO3 ABG pH ABG Total CO2 ABG O2 Saturation ABG Base Excess ABG Hemoglobin ABG Carboxyhemoglobin POC ABG HHb (Measured) ABG Methemoglobin James Test A-a O2 Difference Respiratory Index Hgb O2 Saturation Vent Mode Mechanical Rate FiO2 Tidal Volume PEEP Sodium Potassium Chloride Carbon Dioxide Anion Gap BUN Creatinine Est GFR ( Amer) Est GFR (Non-Af Amer) POC Glucose (mg/dL) 184 H Random Glucose Calcium Phosphorus Magnesium Total Bilirubin AST ALT Alkaline Phosphatase Total Creatine Kinase CK-MB (Mass) Troponin I Troponin I, Quant Total Protein Albumin Globulin Albumin/Globulin Ratio EKG/Cardiology Studies: Cardiology / EKG Studies 02/01/17 14:15 ELECTROCARDIOGRAM Stat Comment: Mode Of Transportation: BED Reason For Exam: MED CLEAR Fingerstick Blood Sugar Results: 157 Review of Systems - Review of Systems Review of Systems: Unable to evaluate due to intubation Critical Care Progress Note - Nutrition Nutrition: Nutrition Category Date Time Status NPO Diet [DIET] Diets 02/01/17 Breakfast Active Assessment/Plan - Assessment and Plan (Free Text) Assessment: 71 year old male with past medical history DM, arthritis, HTN, chronic lower extremity edema, s/p Right Hallux partial amputation POD# 2, intubated due to respiratory distress Today: Patient was extubated today and maintained on ventrimask Plan: Cardio: Elevated Troponins (27.7--->20.6---> 17.800)NSTEMI and Hx of HTN Cardio, Dr. Jaimes on board * As per cardiology, after hemodynamically stability is achieve, anticipate cardiac catherization * F/u echocardiogram official report Medications: Lopressor 25mg PO BID Cozaar 50mg PO daily Aspirin 325mg PO daily Plavix 300mg PO once, loading dose. Plavix 75mg PO daily Crestor 2.5mg PO HS Pulm: Pulmonary edema IVF fluids on hold Lasix 40mg IV Once Endo: Accuchecks Glipizide 5mg PO BID ISS low dose protocol GI: Coffee-Ground emesis No feeding HEME: H/H: 7.9/23.9, * Transfuse 1 unit of PRBC (02/02/17), f/u CBC post transfusion Neuro: Extubated, alert, oriented and responsive to verbal stimuli ID: Gram negative LEE culture right hallux ( 01/31/17) Medication: Zosyn 3.375gm IV Q6H Prophylaxis: DVT: Heparin drip GI: Pepcid 20mg IV daily <Morris Scott - Last Filed: 02/02/17 17:02> CCU Objective - Vital Signs / Intake & Output Vital Signs (Last 4 hours): Vital Signs Temp Pulse Resp BP Pulse Ox 02/02/17 16:22 79 21 137/52 L 91 L 02/02/17 16:06 73 14 149/76 95 02/02/17 16:00 73 16 02/02/17 15:51 72 19 158/71 H 99 02/02/17 15:36 73 20 150/74 100 02/02/17 15:21 73 18 153/75 H 94 L 02/02/17 15:06 73 19 154/80 H 100 02/02/17 15:00 70 22 100 02/02/17 14:51 97.4 F L 74 22 161/78 H 98 02/02/17 14:36 97.5 F L 71 15 154/73 H 97 02/02/17 14:21 97.5 F L 72 21 157/69 H 100 02/02/17 14:04 76 17 145/60 94 L 02/02/17 14:00 74 17 100 02/02/17 13:46 98.4 F 100 02/02/17 13:03 77 14 159/72 H 98 02/02/17 13:02 74 24 100 Intake and Output (Last 8hrs): Intake & Output 02/02/17 02/02/17 02/02/17 06:59 14:59 22:59 Intake Total 121.6 861.6 150.4 Output Total 490 710 200 Balance -368.4 151.6 -49.6 Weight 280 lb Intake: IV 250 Intake, IV Amount 121.6 321.6 30.4 Left Hand 121.6 121.6 30.4 Right Hand 0 0 0 Right PICC 200 Oral 240 120 Blood Product 0 Red Blood Cells Cpd As1 0 Lr Unit [id number] Other 50 Red Blood Cells Cpd As1 50 Lr Unit [id number] Output: Gastric Amount 300 Stomach 300 Urine 490 410 200 Urethral (Carr) 490 410 200 Other: # Bowel Movements 0 0 - Medications Active Medications: Active Medications Generic Name Dose Route Start Last Admin Trade Name Freq PRN Reason Stop Dose Admin Acetaminophen 650 mg 01/30/17 15:56 02/02/17 13:40 Tylenol 325mg Tab PO 650 mg Q6 PRN Administration Pain, moderate (4-7) Clopidogrel Bisulfate 75 mg 02/02/17 10:00 02/02/17 09:24 Plavix PO 75 mg DAILY RORO Administration Famotidine 20 mg 02/02/17 10:00 02/02/17 09:24 Pepcid IVP 20 mg DAILY RORO Administration Glipizide 5 mg 02/02/17 10:00 02/02/17 09:24 Glucotrol PO Not Given BID [facility] Heparin Sodium/Sodium Chloride 25,000 units in 250 mls @ 15.24 mls/hr 16:00 02/02/17 07:31 Heparin 13399 Units/250ml 1/2 Normal Saline IV 02/03/17 16:01 12 units/kg/ hr .[id number] PRN 15.24 mls/hr PROTOCOL Administration Protocol 12 UNITS/KG/HR Piperacillin Sod/Tazobactam 100 mls @ 200 mls/hr 02/02/17 12:00 02/02/17 12: 30 Sod 2.25 gm/ Sodium Chloride IVPB 200 mls/hr Q6 [facility]O Administration Insulin Human Regular 0 unit 02/02/17 16:30 Novolin R SC ACHS [facility] Protocol Losartan Potassium 50 mg 01/30/17 16:30 02/02/17 09:24 Cozaar PO 50 mg DAILY [facility] Administration Metoprolol Tartrate 25 mg 02/01/17 22:00 02/02/17 09:24 Lopressor PO 25 mg Q12 [facility] Administration Rosuvastatin Calcium 2.5 mg 01/30/17 22:30 02/01/17 21:23 Crestor PO 2.5 mg HS R[facility]O Administration - Patient Studies Lab Studies: Microbiology Studies 02/01/17 02:29 MRSA Culture (Admit) - Final Naris MRSA NOT DETECTED 01/30/17 07:55 Blood Culture - Preliminary Blood NO GROWTH AFTER 3 DAYS 01/30/17 08:10 Blood Culture - Preliminary Blood NO GROWTH AFTER 3 DAYS 01/31/17 10:00 Gram Stain - Final Foot - Right Wound Culture - Preliminary Proteus Mirabilis Gram Negative Lee 01/30/17 08:15 Gram Stain - Final Toe Wound Culture - Final Proteus Mirabilis Klebsiella Oxytoca Lab Studies 02/02/17 02/02/17 02/02/17 Range/Units 16:14 12:13 11:34 WBC (4.8-10.8) K/uL RBC (4.40-5.90) Mil/uL Hgb (12.0-18.0) g/dL Hct (35.0-51.0) % MCV (80.0-94.0) fL MCH (27.0-31.0) pg MCHC (33.0-37.0) g/dL RDW (11.5-14.5) % Plt Count (130-400) K/uL MPV (7.2-11.7) fL Neut % (Auto) (50.0-75.0) % Lymph % (Auto) (20.0-40.0) % Gove % (Auto) (0.0-10.0) % Eos % (Auto) (0.0-4.0) % Baso % (Auto) (0.0-2.0) % Neut # (1.8-7.0) K/uL Lymph # (1.0-4.3) K/uL Gove # (0.0-0.8) K/uL Eos # (0.0-0.7) K/uL Baso # (0.0-0.2) K/uL Neutrophils % (Manual) (50-75) % Band Neutrophils % (0-2) % Lymphocytes % (Manual) (20-40) % Monocytes % (Manual) (0-10) % Eosinophils % (Manual) (0-4) % Platelet Estimate (NORMAL) RBC Morphology APTT (21-34) SECONDS Puncture Site pCO2 (35-45) mm/Hg pO2 (80-100) mm/Hg HCO3 (21-28) mmol/L ABG pH (7.35-7.45) ABG Total CO2 (22-28) mmol/L ABG O2 Saturation (95-98) % ABG Base Excess (-2.0-3.0) mmol/L ABG Hemoglobin (11.7-17.4) g/dL ABG Carboxyhemoglobin (0.5-1.5) % POC ABG HHb (Measured) (0.0-5.0) % ABG Methemoglobin (0.0-3.0) % James Test A-a O2 Difference mm/Hg Respiratory Index Hgb O2 Saturation (95.0-98.0) % Vent Mode Mechanical Rate FiO2 % Tidal Volume PEEP Sodium (132-148) mmol/L Potassium (3.6-5.2) mmol/L Chloride (98-107) mmol/L Carbon Dioxide (22-30) mmol/L Anion Gap (10-20) BUN (9-20) mg/dL Creatinine (0.8-1.5) MG/DL Est GFR ( Amer) Est GFR (Non-Af Amer) POC Glucose (mg/dL) 182 H 157 H (65-110) mg/dL Random Glucose (75-110) mg/dL Calcium (8.6-10.4) mg/dl Phosphorus (2.5-4.5) mg/dL Magnesium (1.6-2.3) mg/dL Total Bilirubin (0.2-1.3) mg/dL AST (17-59) U/L ALT (21-72) U/L Alkaline Phosphatase (38-126) U/L Total Creatine Kinase (55-170) U/L CK-MB (Mass) (0.0-3.38) ng/mL Troponin I (0.00-0.120) ng/mL Troponin I, Quant (0.00-0.120) ng/mL Total Protein (6.3-8.3) g/dL Albumin (3.5-5.0) g/dL Globulin (2.2-3.9) gm/dL Albumin/Globulin Ratio (1.0-2.1) Blood Type B POSITIVE Antibody Screen Negative 02/02/17 02/02/17 02/02/17 Range/Units 11:30 07:22 06:13 WBC (4.8-10.8) K/uL RBC (4.40-5.90) Mil/uL Hgb 8.8 L (12.0-18.0) g/dL Hct 27.0 L (35.0-51.0) % MCV (80.0-94.0) fL MCH (27.0-31.0) pg MCHC (33.0-37.0) g/dL RDW (11.5-14.5) % Plt Count (130-400) K/uL MPV (7.2-11.7) fL Neut % (Auto) (50.0-75.0) % Lymph % (Auto) (20.0-40.0) % Gove % (Auto) (0.0-10.0) % Eos % (Auto) (0.0-4.0) % Baso % (Auto) (0.0-2.0) % Neut # (1.8-7.0) K/uL Lymph # (1.0-4.3) K/uL Gove # (0.0-0.8) K/uL Eos # (0.0-0.7) K/uL Baso # (0.0-0.2) K/uL Neutrophils % (Manual) (50-75) % Band Neutrophils % (0-2) % Lymphocytes % (Manual) (20-40) % Monocytes % (Manual) (0-10) % Eosinophils % (Manual) (0-4) % Platelet Estimate (NORMAL) RBC Morphology APTT (21-34) SECONDS Puncture Site pCO2 (35-45) mm/Hg pO2 (80-100) mm/Hg HCO3 (21-28) mmol/L ABG pH (7.35-7.45) ABG Total CO2 (22-28) mmol/L ABG O2 Saturation (95-98) % ABG Base Excess (-2.0-3.0) mmol/L ABG Hemoglobin (11.7-17.4) g/dL ABG Carboxyhemoglobin (0.5-1.5) % POC ABG HHb (Measured) (0.0-5.0) % ABG Methemoglobin (0.0-3.0) % James Test A-a O2 Difference mm/Hg Respiratory Index Hgb O2 Saturation (95.0-98.0) % Vent Mode Mechanical Rate FiO2 % Tidal Volume PEEP Sodium (132-148) mmol/L Potassium (3.6-5.2) mmol/L Chloride (98-107) mmol/L Carbon Dioxide (22-30) mmol/L Anion Gap (10-20) BUN (9-20) mg/dL Creatinine (0.8-1.5) MG/DL Est GFR ( Amer) Est GFR (Non-Af Amer) POC Glucose (mg/dL) 184 H 136 H (65-110) mg/dL Random Glucose (75-110) mg/dL Calcium (8.6-10.4) mg/dl Phosphorus (2.5-4.5) mg/dL Magnesium (1.6-2.3) mg/dL Total Bilirubin (0.2-1.3) mg/dL AST (17-59) U/L ALT (21-72) U/L Alkaline Phosphatase (38-126) U/L Total Creatine Kinase (55-170) U/L CK-MB (Mass) (0.0-3.38) ng/mL Troponin I (0.00-0.120) ng/mL Troponin I, Quant (0.00-0.120) ng/mL Total Protein (6.3-8.3) g/dL Albumin (3.5-5.0) g/dL Globulin (2.2-3.9) gm/dL Albumin/Globulin Ratio (1.0-2.1) Blood Type Antibody Screen 02/02/17 02/02/17 02/02/17 Range/Units 06:11 06:11 06:11 WBC 15.0 H (4.8-10.8) K/uL RBC 2.73 L (4.40-5.90) Mil/uL Hgb 7.9 L (12.0-18.0) g/dL Hct 23.9 L (35.0-51.0) % MCV 87.7 (80.0-94.0) fL MCH 28.9 (27.0-31.0) pg MCHC 32.9 L (33.0-37.0) g/dL RDW 13.6 (11.5-14.5) % Plt Count 236 (130-400) K/uL MPV 8.1 (7.2-11.7) fL Neut % (Auto) 80.3 H (50.0-75.0) % Lymph % (Auto) 9.1 L (20.0-40.0) % Gove % (Auto) 8.7 (0.0-10.0) % Eos % (Auto) 1.5 (0.0-4.0) % Baso % (Auto) 0.4 (0.0-2.0) % Neut # 12.0 H (1.8-7.0) K/uL Lymph # 1.4 (1.0-4.3) K/uL Gove # 1.3 H (0.0-0.8) K/uL Eos # 0.2 (0.0-0.7) K/uL Baso # 0.1 (0.0-0.2) K/uL Neutrophils % (Manual) 87 H (50-75) % Band Neutrophils % 1 (0-2) % Lymphocytes % (Manual) 5 L (20-40) % Monocytes % (Manual) 4 (0-10) % Eosinophils % (Manual) 3 (0-4) % Platelet Estimate Normal (NORMAL) RBC Morphology Normal APTT 72 H D (21-34) SECONDS Puncture Site pCO2 (35-45) mm/Hg pO2 (80-100) mm/Hg HCO3 (21-28) mmol/L ABG pH (7.35-7.45) ABG Total CO2 (22-28) mmol/L ABG O2 Saturation (95-98) % ABG Base Excess (-2.0-3.0) mmol/L ABG Hemoglobin (11.7-17.4) g/dL ABG Carboxyhemoglobin (0.5-1.5) % POC ABG HHb (Measured) (0.0-5.0) % ABG Methemoglobin (0.0-3.0) % James Test A-a O2 Difference mm/Hg Respiratory Index Hgb O2 Saturation (95.0-98.0) % Vent Mode Mechanical Rate FiO2 % Tidal Volume PEEP Sodium 140 (132-148) mmol/L Potassium 3.8 (3.6-5.2) mmol/L Chloride 103 (98-107) mmol/L Carbon Dioxide 21 L (22-30) mmol/L Anion Gap 20 (10-20) BUN 29 H (9-20) mg/dL Creatinine 2.7 H (0.8-1.5) MG/DL Est GFR ( Amer) 28 Est GFR (Non-Af Amer) 23 POC Glucose (mg/dL) (65-110) mg/dL Random Glucose 138 H (75-110) mg/dL Calcium 8.8 (8.6-10.4) mg/dl Phosphorus 4.6 H (2.5-4.5) mg/dL Magnesium 1.9 (1.6-2.3) mg/dL Total Bilirubin 0.8 (0.2-1.3) mg/dL AST 74 H (17-59) U/L ALT 34 (21-72) U/L Alkaline Phosphatase 49 (38-126) U/L Total Creatine Kinase (55-170) U/L CK-MB (Mass) (0.0-3.38) ng/mL Troponin I (0.00-0.120) ng/mL Troponin I, Quant (0.00-0.120) ng/mL Total Protein 6.2 L (6.3-8.3) g/dL Albumin 2.9 L (3.5-5.0) g/dL Globulin 3.3 (2.2-3.9) gm/dL Albumin/Globulin Ratio 0.9 L (1.0-2.1) Blood Type Antibody Screen 02/02/17 02/02/17 02/01/17 Range/Units 05:20 00:55 22:55 WBC (4.8-10.8) K/uL RBC (4.40-5.90) Mil/uL Hgb (12.0-18.0) g/dL Hct (35.0-51.0) % MCV (80.0-94.0) fL MCH (27.0-31.0) pg MCHC (33.0-37.0) g/dL RDW (11.5-14.5) % Plt Count (130-400) K/uL MPV (7.2-11.7) fL Neut % (Auto) (50.0-75.0) % Lymph % (Auto) (20.0-40.0) % Gove % (Auto) (0.0-10.0) % Eos % (Auto) (0.0-4.0) % Baso % (Auto) (0.0-2.0) % Neut # (1.8-7.0) K/uL Lymph # (1.0-4.3) K/uL Gove # (0.0-0.8) K/uL Eos # (0.0-0.7) K/uL Baso # (0.0-0.2) K/uL Neutrophils % (Manual) (50-75) % Band Neutrophils % (0-2) % Lymphocytes % (Manual) (20-40) % Monocytes % (Manual) (0-10) % Eosinophils % (Manual) (0-4) % Platelet Estimate (NORMAL) RBC Morphology APTT (21-34) SECONDS Puncture Site Rr pCO2 40 (35-45) mm/Hg pO2 168 H (80-100) mm/Hg HCO3 22.9 (21-28) mmol/L ABG pH 7.36 (7.35-7.45) ABG Total CO2 23.8 (22-28) mmol/L ABG O2 Saturation 98.2 H (95-98) % ABG Base Excess -2.6 L (-2.0-3.0) mmol/L ABG Hemoglobin 8.1 L (11.7-17.4) g/dL ABG Carboxyhemoglobin 0.7 (0.5-1.5) % POC ABG HHb (Measured) 1.8 (0.0-5.0) % ABG Methemoglobin 0.4 (0.0-3.0) % James Test Pos A-a O2 Difference 210.0 mm/Hg Respiratory Index 1.3 Hgb O2 Saturation 97.2 (95.0-98.0) % Vent Mode Prvc Mechanical Rate 18 FiO2 60.0 % Tidal Volume 500 PEEP 5 Sodium (132-148) mmol/L Potassium (3.6-5.2) mmol/L Chloride (98-107) mmol/L Carbon Dioxide (22-30) mmol/L Anion Gap (10-20) BUN (9-20) mg/dL Creatinine (0.8-1.5) MG/DL Est GFR ( Amer) Est GFR (Non-Af Amer) POC Glucose (mg/dL) 137 H (65-110) mg/dL Random Glucose (75-110) mg/dL Calcium (8.6-10.4) mg/dl Phosphorus (2.5-4.5) mg/dL Magnesium (1.6-2.3) mg/dL Total Bilirubin (0.2-1.3) mg/dL AST (17-59) U/L ALT (21-72) U/L Alkaline Phosphatase (38-126) U/L Total Creatine Kinase 381 H (55-170) U/L CK-MB (Mass) 9.15 H (0.0-3.38) ng/mL Troponin I (0.00-0.120) ng/mL Troponin I, Quant 17.8000 H* (0.00-0.120) ng/mL Total Protein (6.3-8.3) g/dL Albumin (3.5-5.0) g/dL Globulin (2.2-3.9) gm/dL Albumin/Globulin Ratio (1.0-2.1) Blood Type Antibody Screen 02/01/17 02/01/17 02/01/17 Range/Units 22:55 17:49 17:15 WBC (4.8-10.8) K/uL RBC (4.40-5.90) Mil/uL Hgb (12.0-18.0) g/dL Hct (35.0-51.0) % MCV (80.0-94.0) fL MCH (27.0-31.0) pg MCHC (33.0-37.0) g/dL RDW (11.5-14.5) % Plt Count (130-400) K/uL MPV (7.2-11.7) fL Neut % (Auto) (50.0-75.0) % Lymph % (Auto) (20.0-40.0) % Gove % (Auto) (0.0-10.0) % Eos % (Auto) (0.0-4.0) % Baso % (Auto) (0.0-2.0) % Neut # (1.8-7.0) K/uL Lymph # (1.0-4.3) K/uL Gove # (0.0-0.8) K/uL Eos # (0.0-0.7) K/uL Baso # (0.0-0.2) K/uL Neutrophils % (Manual) (50-75) % Band Neutrophils % (0-2) % Lymphocytes % (Manual) (20-40) % Monocytes % (Manual) (0-10) % Eosinophils % (Manual) (0-4) % Platelet Estimate (NORMAL) RBC Morphology APTT 80 H D (21-34) SECONDS Puncture Site pCO2 (35-45) mm/Hg pO2 (80-100) mm/Hg HCO3 (21-28) mmol/L ABG pH (7.35-7.45) ABG Total CO2 (22-28) mmol/L ABG O2 Saturation (95-98) % ABG Base Excess (-2.0-3.0) mmol/L ABG Hemoglobin (11.7-17.4) g/dL ABG Carboxyhemoglobin (0.5-1.5) % POC ABG HHb (Measured) (0.0-5.0) % ABG Methemoglobin (0.0-3.0) % James Test A-a O2 Difference mm/Hg Respiratory Index Hgb O2 Saturation (95.0-98.0) % Vent Mode Mechanical Rate FiO2 % Tidal Volume PEEP Sodium (132-148) mmol/L Potassium (3.6-5.2) mmol/L Chloride (98-107) mmol/L Carbon Dioxide (22-30) mmol/L Anion Gap (10-20) BUN (9-20) mg/dL Creatinine (0.8-1.5) MG/DL Est GFR ( Amer) Est GFR (Non-Af Amer) POC Glucose (mg/dL) 175 H (65-110) mg/dL Random Glucose (75-110) mg/dL Calcium (8.6-10.4) mg/dl Phosphorus (2.5-4.5) mg/dL Magnesium (1.6-2.3) mg/dL Total Bilirubin (0.2-1.3) mg/dL AST (17-59) U/L ALT (21-72) U/L Alkaline Phosphatase (38-126) U/L Total Creatine Kinase (55-170) U/L CK-MB (Mass) (0.0-3.38) ng/mL Troponin I 20.6000 H* (0.00-0.120) ng/mL Troponin I, Quant (0.00-0.120) ng/mL Total Protein (6.3-8.3) g/dL Albumin (3.5-5.0) g/dL Globulin (2.2-3.9) gm/dL Albumin/Globulin Ratio (1.0-2.1) Blood Type Antibody Screen Laboratory Results - last 24 hr 02/01/17 02/01/17 02/01/17 17:15 17:49 22:55 WBC RBC Hgb Hct MCV MCH MCHC RDW Plt Count MPV Neut % (Auto) Lymph % (Auto) Gove % (Auto) Eos % (Auto) Baso % (Auto) Neut # Lymph # Gove # Eos # Baso # Neutrophils % (Manual) Band Neutrophils % Lymphocytes % (Manual) Monocytes % (Manual) Eosinophils % (Manual) Platelet Estimate RBC Morphology APTT 80 H D Puncture Site pCO2 pO2 HCO3 ABG pH ABG Total CO2 ABG O2 Saturation ABG Base Excess ABG Hemoglobin ABG Carboxyhemoglobin POC ABG HHb (Measured) ABG Methemoglobin James Test A-a O2 Difference Respiratory Index Hgb O2 Saturation Vent Mode Mechanical Rate FiO2 Tidal Volume PEEP Sodium Potassium Chloride Carbon Dioxide Anion Gap BUN Creatinine Est GFR ( Amer) Est GFR (Non-Af Amer) POC Glucose (mg/dL) 175 H Random Glucose Calcium Phosphorus Magnesium Total Bilirubin AST ALT Alkaline Phosphatase Total Creatine Kinase CK-MB (Mass) Troponin I 20.6000 H* Troponin I, Quant Total Protein Albumin Globulin Albumin/Globulin Ratio Blood Type Antibody Screen 02/01/17 02/02/17 02/02/17 22:55 00:55 05:20 WBC RBC Hgb Hct MCV MCH MCHC RDW Plt Count MPV Neut % (Auto) Lymph % (Auto) Gove % (Auto) Eos % (Auto) Baso % (Auto) Neut # Lymph # Gove # Eos # Baso # Neutrophils % (Manual) Band Neutrophils % Lymphocytes % (Manual) Monocytes % (Manual) Eosinophils % (Manual) Platelet Estimate RBC Morphology APTT Puncture Site Rr pCO2 40 pO2 168 H HCO3 22.9 ABG pH 7.36 ABG Total CO2 23.8 ABG O2 Saturation 98.2 H ABG Base Excess -2.6 L ABG Hemoglobin 8.1 L ABG Carboxyhemoglobin 0.7 POC ABG HHb (Measured) 1.8 ABG Methemoglobin 0.4 James Test Pos A-a O2 Difference 210.0 Respiratory Index 1.3 Hgb O2 Saturation 97.2 Vent Mode Prvc Mechanical Rate 18 FiO2 60.0 Tidal Volume 500 PEEP 5 Sodium Potassium Chloride Carbon Dioxide Anion Gap BUN Creatinine Est GFR ( Amer) Est GFR (Non-Af Amer) POC Glucose (mg/dL) 137 H Random Glucose Calcium Phosphorus Magnesium Total Bilirubin AST ALT Alkaline Phosphatase Total Creatine Kinase 381 H CK-MB (Mass) 9.15 H Troponin I Troponin I, Quant 17.8000 H* Total Protein Albumin Globulin Albumin/Globulin Ratio Blood Type Antibody Screen 02/02/17 02/02/17 02/02/17 06:11 06:11 06:11 WBC 15.0 H RBC 2.73 L Hgb 7.9 L Hct 23.9 L MCV 87.7 MCH 28.9 MCHC 32.9 L RDW 13.6 Plt Count 236 MPV 8.1 Neut % (Auto) 80.3 H Lymph % (Auto) 9.1 L Gove % (Auto) 8.7 Eos % (Auto) 1.5 Baso % (Auto) 0.4 Neut # 12.0 H Lymph # 1.4 Gove # 1.3 H Eos # 0.2 Baso # 0.1 Neutrophils % (Manual) 87 H Band Neutrophils % 1 Lymphocytes % (Manual) 5 L Monocytes % (Manual) 4 Eosinophils % (Manual) 3 Platelet Estimate Normal RBC Morphology Normal APTT 72 H D Puncture Site pCO2 pO2 HCO3 ABG pH ABG Total CO2 ABG O2 Saturation ABG Base Excess ABG Hemoglobin ABG Carboxyhemoglobin POC ABG HHb (Measured) ABG Methemoglobin James Test A-a O2 Difference Respiratory Index Hgb O2 Saturation Vent Mode Mechanical Rate FiO2 Tidal Volume PEEP Sodium 140 Potassium 3.8 Chloride 103 Carbon Dioxide 21 L Anion Gap 20 BUN 29 H Creatinine 2.7 H Est GFR ( Amer) 28 Est GFR (Non-Af Amer) 23 POC Glucose (mg/dL) Random Glucose 138 H Calcium 8.8 Phosphorus 4.6 H Magnesium 1.9 Total Bilirubin 0.8 AST 74 H ALT 34 Alkaline Phosphatase 49 Total Creatine Kinase CK-MB (Mass) Troponin I Troponin I, Quant Total Protein 6.2 L Albumin 2.9 L Globulin 3.3 Albumin/Globulin Ratio 0.9 L Blood Type Antibody Screen 02/02/17 02/02/17 02/02/17 06:13 07:22 11:30 WBC RBC Hgb 8.8 L Hct 27.0 L MCV MCH MCHC RDW Plt Count MPV Neut % (Auto) Lymph % (Auto) Gove % (Auto) Eos % (Auto) Baso % (Auto) Neut # Lymph # Gove # Eos # Baso # Neutrophils % (Manual) Band Neutrophils % Lymphocytes % (Manual) Monocytes % (Manual) Eosinophils % (Manual) Platelet Estimate RBC Morphology APTT Puncture Site pCO2 pO2 HCO3 ABG pH ABG Total CO2 ABG O2 Saturation ABG Base Excess ABG Hemoglobin ABG Carboxyhemoglobin POC ABG HHb (Measured) ABG Methemoglobin James Test A-a O2 Difference Respiratory Index Hgb O2 Saturation Vent Mode Mechanical Rate FiO2 Tidal Volume PEEP Sodium Potassium Chloride Carbon Dioxide Anion Gap BUN Creatinine Est GFR ( Amer) Est GFR (Non-Af Amer) POC Glucose (mg/dL) 136 H 184 H Random Glucose Calcium Phosphorus Magnesium Total Bilirubin AST ALT Alkaline Phosphatase Total Creatine Kinase CK-MB (Mass) Troponin I Troponin I, Quant Total Protein Albumin Globulin Albumin/Globulin Ratio Blood Type Antibody Screen 02/02/17 02/02/17 02/02/17 11:34 12:13 16:14 WBC RBC Hgb Hct MCV MCH MCHC RDW Plt Count MPV Neut % (Auto) Lymph % (Auto) Gove % (Auto) Eos % (Auto) Baso % (Auto) Neut # Lymph # Gove # Eos # Baso # Neutrophils % (Manual) Band Neutrophils % Lymphocytes % (Manual) Monocytes % (Manual) Eosinophils % (Manual) Platelet Estimate RBC Morphology APTT Puncture Site pCO2 pO2 HCO3 ABG pH ABG Total CO2 ABG O2 Saturation ABG Base Excess ABG Hemoglobin ABG Carboxyhemoglobin POC ABG HHb (Measured) ABG Methemoglobin James Test A-a O2 Difference Respiratory Index Hgb O2 Saturation Vent Mode Mechanical Rate FiO2 Tidal Volume PEEP Sodium Potassium Chloride Carbon Dioxide Anion Gap BUN Creatinine Est GFR ( Amer) Est GFR (Non-Af Amer) POC Glucose (mg/dL) 157 H 182 H Random Glucose Calcium Phosphorus Magnesium Total Bilirubin AST ALT Alkaline Phosphatase Total Creatine Kinase CK-MB (Mass) Troponin I Troponin I, Quant Total Protein Albumin Globulin Albumin/Globulin Ratio Blood Type B POSITIVE Antibody Screen Negative Critical Care Progress Note - Nutrition Nutrition: Nutrition Category Date Time Status Heart Healthy Diet [DIET] Diets 02/02/17 Dinner Active Attending/Attestation - Attestation I have personally seen and examined this patient.: Yes I have fully participated in the care of the patient.: Yes I have reviewed all pertinent clinical information: Yes Notes (Text): 02/02/17 17:01 I have seen and examined the patient. Medical records, lab studies, and imaging were reviewed by me and a management plan was formulated on multidisciplinary rounds with resident Dr. Barr. I agree with their above documented assessment and plan. Patient tolerated PS trial and t-piece trial, extubated. Continue heparin gtt ( 48h) and Plavix. Patient to get cardiac cath soon. Critical Care Time 35 minutes. Multi-disciplinary rounds were performed with house staff, nursing, speech therapy, respiratory therapy, pharmacy and nutrition with integrated input from the primary team/attending and other consulting services. The documented time is cumulative and includes review of patient data/exams/labs/chart review and examination of the patient on rounds and throughout the day; time is exclusive of any procedures or teaching time.
[2017-02-02] MEDS: Piperacillin/Tazobact 2.25 GM in Sodium Chloride 100 ML IVPB SCH ×2 (12:30→17:48)
--- NOTE | 2017-02-02 12:45 | CP.PCM.PN ---
Subjective - Date & Time of Evaluation Date of Evaluation: 02/02/17 Time of Evaluation: 09:00 - Subjective Subjective: less agitated alert awake nad still intubated + NSTEMI - cardiology on board Objective - Vital Signs/Intake and Output Vital Signs (last 24 hours): Temp Pulse Resp BP Pulse Ox 98.4 F 74 11 L 169/76 H 100 02/02/17 08:00 02/02/17 10:03 02/02/17 10:03 02/02/17 12:29 02/02/17 10:03 Intake and Output: 02/02/17 02/02/17 06:59 18:59 Intake Total 282.4 530.8 Output Total 1270 150 Balance -987.6 380.8 - Medications Medications: Current Medications Acetaminophen (Tylenol 325mg Tab) 650 mg PO Q6 PRN PRN Reason: Pain, moderate (4-7) Clopidogrel Bisulfate (Plavix) 75 mg PO DAILY [facility] Last Admin: 02/02/17 09:24 Dose: 75 mg Famotidine (Pepcid) 20 mg IVP DAILY [facility] Last Admin: 02/02/17 09:24 Dose: 20 mg Glipizide (Glucotrol) 5 mg PO BID [facility] Last Admin: 02/02/17 09:24 Dose: Not Given Heparin Sodium/Sodium Chloride (Heparin 87575 Units/250ml 1/2 Normal Saline) 25 ,000 units in 250 mls @ 15.24 mls/hr IV .[id number] PRN; Protocol; 12 UNITS/KG/HR PRN Reason: PROTOCOL Last Admin: 02/02/17 07:31 Dose: 12 units/kg/hr, 15.24 mls/hr Piperacillin Sod/Tazobactam (Sod 2.25 gm/ Sodium Chloride) 100 mls @ 200 mls/ hr IVPB Q6 [facility] Last Admin: 02/02/17 12:30 Dose: 200 mls/hr Insulin Human Regular (Novolin R) 0 unit SC Q6H [facility] PRN Reason: Protocol Last Admin: 02/02/17 12:16 Dose: Not Given Losartan Potassium (Cozaar) 50 mg PO DAILY [facility] Last Admin: 02/02/17 09:24 Dose: 50 mg Metoprolol Tartrate (Lopressor) 25 mg PO Q12 [facility] Last Admin: 02/02/17 09:24 Dose: 25 mg Midazolam HCl (Versed Inj) 2 mg IVP Q4H PRN PRN Reason: Agitation Last Admin: 02/02/17 07:30 Dose: 2 mg Oxycodone/Acetaminophen (Percocet 5/325 Mg Tab) 1 tab PO Q6H PRN PRN Reason: Pain, severe (8-10) Stop: 02/03/17 12:45 Last Admin: 01/31/17 12:54 Dose: 1 tab Rosuvastatin Calcium (Crestor) 2.5 mg PO HS [facility] Last Admin: 02/01/17 21:23 Dose: 2.5 mg - Labs Labs: 02/02/17 11:30 02/02/17 06:11 PT 13.1 SECONDS (9.7-12.2) H 01/31/17 07:15 INR 1.2 01/31/17 07:15 APTT 72 SECONDS (21-34) H D 02/02/17 06:11 - Constitutional Appears: Non-toxic, Chronically Ill - Head Exam Head Exam: NORMOCEPHALIC - Eye Exam Eye Exam: PERRL. absent: Scleral icterus - ENT Exam ENT Exam: Mucous Membranes Dry - Neck Exam Neck Exam: absent: Lymphadenopathy - Respiratory Exam Respiratory Exam: Decreased Breath Sounds - Cardiovascular Exam Cardiovascular Exam: REGULAR RHYTHM - GI/Abdominal Exam GI & Abdominal Exam: Soft. absent: Tenderness - Rectal Exam Rectal Exam: Deferred - Extremities Exam Extremities Exam: Pedal Edema, Tenderness - Back Exam Back Exam: absent: CVA tenderness (L), CVA tenderness (R) - Neurological Exam Neurological Exam: Alert, Awake, Oriented x3 Assessment and Plan (1) Cellulitis Status: Acute (2) Osteomyelitis Status: Acute (3) Toe gangrene Status: Acute (4) Abscess of great toe Status: Acute (5) Diabetes mellitus Status: Chronic - Assessment and Plan (Free Text) Assessment: s/p amputation NSTEMI resp failure cardio on board cont iv rx
--- NOTE | 2017-02-02 14:20 | CARD ---
APPROVED REPORT EKG Measurement Heart [id number] ID [id number] <Conclusion> Sinus rhythm with 1st degree AV block Nonspecific ST and T wave abnormality Abnormal ECG
--- NOTE | 2017-02-02 19:44 | CARD ---
APPROVED REPORT EKG Measurement Heart [id number] <Conclusion> Sinus tachycardia with 1st degree AV block Left axis deviation Poor R wave progression. Abnormal ECG
--- NOTE | 2017-02-02 20:26 | CARD ---
APPROVED REPORT EXAM: Two-dimensional and M-mode echocardiogram with Doppler and color Doppler. Other Information Quality : GoodRhythm : INDICATION Peripheral Edema Syncope Non STEMI PROSTATE CANCER RISK FACTORS Hypertension Diabetes 2D DIMENSIONS IVSd1.4 (0.7-1.1cm)LVDd5.0 (3.9-5.9cm) PWd1.4 (0.7-1.1cm)LVDs3.5 (2.5-4.0cm) FS (%) 30.1 %LVEF (%)57.2 (>50%) M-Mode DIMENSIONS Left Atrium (MM)4.48 (2.5-4.0cm)Aortic Root3.88 (2.2-3.7cm) Aortic Cusp Exc.2.15 (1.5-2.0cm) Mitral Valve MV E Ystrdsqj468.6cm/sMV A Mgphjxpk23.8cm/sE/A ratio1.4 TDI E/Lateral E'0.0E/Medial E'0.0 Tricuspid Valve TR Peak [id number]/sTR Peak [id number] LEFT VENTRICLE The left ventricle is normal size. There is normal left ventricular wall thickness. The left ventricular function is normal. The left ventricular ejection fraction is within the normal range. No regional wall motion abnormalities noted. Transmitral Doppler flow pattern is Grade II-pseudonormal filling dynamics. The left atrial pressure is mildly elevated. No left ventricle thrombus noted on this study. There is no ventricular septal defect visualized. There is no left ventricular aneurysm. There is no mass noted in the left ventricle. RIGHT VENTRICLE The right ventricle is normal size. There is normal right ventricular wall thickness. The right ventricular systolic function is normal. ATRIA The left atrium is mildly dilated. The right atrium size is normal. The interatrial septum is intact with no evidence for an atrial septal defect. AORTIC VALVE The aortic valve is normal in structure and function. No aortic regurgitation is present. There is no aortic valvular stenosis. There is no aortic valvular vegetation. MITRAL VALVE The mitral valve is normal in structure and function. There is no evidence of mitral valve prolapse. There is no mitral valve stenosis. There is no mitral valve regurgitation noted. TRICUSPID VALVE The tricuspid valve is normal in structure and function. There is no tricuspid valve regurgitation noted. There is no tricuspid valve prolapse or vegetation. There is no tricuspid valve stenosis. PULMONIC VALVE The pulmonary valve is normal in structure and function. There is no pulmonic valvular regurgitation. There is no pulmonic valvular stenosis. GREAT VESSELS The aortic root is normal in size. The ascending aorta is Moderately dilated. The pulmonary artery is normal. The IVC is dilated. PERICARDIAL EFFUSION The pericardium appears normal. There is no pleural effusion. <Conclusion> The left ventricular function is normal. The left ventricular ejection fraction is within the normal range. No regional wall motion abnormalities noted. Transmitral Doppler flow pattern is Grade II-pseudonormal filling dynamics. The left atrial pressure is mildly elevated. The left atrium is mildly dilated. The ascending aorta is Moderately dilated.
--- NOTE | 2017-02-02 20:33 | CP.PCM.HP ---
Past Patient History - Infectious Disease Hx of Infectious Diseases: None - Past Medical History & Family History Past Medical History?: Yes - Past Social History Smoking Status: Never Smoked - CARDIAC Hx Hypertension: Yes Hx Peripheral Edema: Yes - PULMONARY Hx Respiratory Disorders: No - NEUROLOGICAL Hx Neurological Disorder: Yes HX Cerebrovascular Accident: Yes (x3) - HEENT Hx HEENT Problems: Yes Hx Cataracts: Yes (BILAT) - RENAL Hx Chronic Kidney Disease: No - ENDOCRINE/METABOLIC Hx Endocrine Disorders: Yes Hx Diabetes Mellitus Type 2: Yes - HEMATOLOGICAL/ONCOLOGICAL Hx Blood Disorders: No - INTEGUMENTARY Hx Dermatological Problems: No - MUSCULOSKELETAL/RHEUMATOLOGICAL Hx Falls: No - GASTROINTESTINAL Hx Gastrointestinal Disorders: No - GENITOURINARY/GYNECOLOGICAL Hx Genitourinary Disorders: Yes Hx Prostate Cancer: Yes (per md) - PSYCHIATRIC Hx Substance Use: No - SURGICAL HISTORY Hx Surgeries: Yes Hx Cataract Extraction: Yes (bilat) Other/Comment: I/D RECTAL ABSCESS X 2 - ANESTHESIA Hx Anesthesia: Yes Hx Anesthesia Reactions: No Hx Malignant Hyperthermia: No Meds Allergies/Adverse Reactions: Allergies Allergy/AdvReac Type Severity Reaction Status Date / Time No Known Allergies Allergy Verified 01/30/17 06:57 Physical Exam - Constitutional Appears: Well - Head Exam Head Exam: ATRAUMATIC, NORMAL INSPECTION, NORMOCEPHALIC - Eye Exam Eye Exam: EOMI, Normal appearance, PERRL Pupil Exam: NORMAL ACCOMODATION, PERRL - ENT Exam ENT Exam: Mucous Membranes Moist, Normal Exam - Neck Exam Neck exam: Positive for: Normal Inspection - Respiratory Exam Respiratory Exam: Decreased Breath Sounds - Cardiovascular Exam Cardiovascular Exam: REGULAR RHYTHM, +S1, +S2 - GI/Abdominal Exam GI & Abdominal Exam: Diminished Bowel Sounds, Soft - Rectal Exam Rectal Exam: Deferred Results - Vital Signs Recent Vital Signs: Last Vital Signs Temp 97.5 F L 02/02/17 17:30 Pulse 89 02/02/17 19:04 Resp 19 02/02/17 19:04 BP 171/64 H 02/02/17 19:04 Pulse Ox 95 02/02/17 19:04 - Labs Result Diagrams: 02/02/17 11:30 02/02/17 06:11 Labs: Laboratory Results - last 24 hr 02/01/17 02/01/17 02/02/17 22:55 22:55 00:55 WBC RBC Hgb Hct MCV MCH MCHC RDW Plt Count MPV Neut % (Auto) Lymph % (Auto) [place] % (Auto) Eos % (Auto) Baso % (Auto) Neut # Lymph # [place] # Eos # Baso # Neutrophils % (Manual) Band Neutrophils % Lymphocytes % (Manual) Monocytes % (Manual) Eosinophils % (Manual) Platelet Estimate RBC Morphology APTT 80 H D Puncture Site pCO2 pO2 HCO3 ABG pH ABG Total CO2 ABG O2 Saturation ABG Base Excess ABG Hemoglobin ABG Carboxyhemoglobin POC ABG HHb (Measured) ABG Methemoglobin James Test A-a O2 Difference Respiratory Index Hgb O2 Saturation Vent Mode Mechanical Rate FiO2 Tidal Volume PEEP Sodium Potassium Chloride Carbon Dioxide Anion Gap BUN Creatinine Est GFR ( Amer) Est GFR (Non-Af Amer) POC Glucose (mg/dL) 137 H Random Glucose Calcium Phosphorus Magnesium Total Bilirubin AST ALT Alkaline Phosphatase Total Creatine Kinase 381 H CK-MB (Mass) 9.15 H Troponin I, Quant 17.8000 H* NT-Pro-B Natriuret Pep Total Protein Albumin Globulin Albumin/Globulin Ratio Blood Type Antibody Screen 02/02/17 02/02/17 02/02/17 05:20 06:11 06:11 WBC 15.0 H RBC 2.73 L Hgb 7.9 L Hct 23.9 L MCV 87.7 MCH 28.9 MCHC 32.9 L RDW 13.6 Plt Count 236 MPV 8.1 Neut % (Auto) 80.3 H Lymph % (Auto) 9.1 L [place] % (Auto) 8.7 Eos % (Auto) 1.5 Baso % (Auto) 0.4 Neut # 12.0 H Lymph # 1.4 [place] # 1.3 H Eos # 0.2 Baso # 0.1 Neutrophils % (Manual) 87 H Band Neutrophils % 1 Lymphocytes % (Manual) 5 L Monocytes % (Manual) 4 Eosinophils % (Manual) 3 Platelet Estimate Normal RBC Morphology Normal APTT Puncture Site Rr pCO2 40 pO2 168 H HCO3 22.9 ABG pH 7.36 ABG Total CO2 23.8 ABG O2 Saturation 98.2 H ABG Base Excess -2.6 L ABG Hemoglobin 8.1 L ABG Carboxyhemoglobin 0.7 POC ABG HHb (Measured) 1.8 ABG Methemoglobin 0.4 James Test Pos A-a O2 Difference 210.0 Respiratory Index 1.3 Hgb O2 Saturation 97.2 Vent Mode Prvc Mechanical Rate 18 FiO2 60.0 Tidal Volume 500 PEEP 5 Sodium 140 Potassium 3.8 Chloride 103 Carbon Dioxide 21 L Anion Gap 20 BUN 29 H Creatinine 2.7 H Est GFR ( Amer) 28 Est GFR (Non-Af Amer) 23 POC Glucose (mg/dL) Random Glucose 138 H Calcium 8.8 Phosphorus 4.6 H Magnesium 1.9 Total Bilirubin 0.8 AST 74 H ALT 34 Alkaline Phosphatase 49 Total Creatine Kinase CK-MB (Mass) Troponin I, Quant NT-Pro-B Natriuret Pep Total Protein 6.2 L Albumin 2.9 L Globulin 3.3 Albumin/Globulin Ratio 0.9 L Blood Type Antibody Screen 02/02/17 02/02/17 02/02/17 06:11 06:13 07:22 WBC RBC Hgb Hct MCV MCH MCHC RDW Plt Count MPV Neut % (Auto) Lymph % (Auto) [place] % (Auto) Eos % (Auto) Baso % (Auto) Neut # Lymph # [place] # Eos # Baso # Neutrophils % (Manual) Band Neutrophils % Lymphocytes % (Manual) Monocytes % (Manual) Eosinophils % (Manual) Platelet Estimate RBC Morphology APTT 72 H D Puncture Site pCO2 pO2 HCO3 ABG pH ABG Total CO2 ABG O2 Saturation ABG Base Excess ABG Hemoglobin ABG Carboxyhemoglobin POC ABG HHb (Measured) ABG Methemoglobin James Test A-a O2 Difference Respiratory Index Hgb O2 Saturation Vent Mode Mechanical Rate FiO2 Tidal Volume PEEP Sodium Potassium Chloride Carbon Dioxide Anion Gap BUN Creatinine Est GFR ( Amer) Est GFR (Non-Af Amer) POC Glucose (mg/dL) 136 H 184 H Random Glucose Calcium Phosphorus Magnesium Total Bilirubin AST ALT Alkaline Phosphatase Total Creatine Kinase CK-MB (Mass) Troponin I, Quant NT-Pro-B Natriuret Pep Total Protein Albumin Globulin Albumin/Globulin Ratio Blood Type Antibody Screen 02/02/17 02/02/17 02/02/17 11:30 11:34 12:13 WBC RBC Hgb 8.8 L Hct 27.0 L MCV MCH MCHC RDW Plt Count MPV Neut % (Auto) Lymph % (Auto) [place] % (Auto) Eos % (Auto) Baso % (Auto) Neut # Lymph # [place] # Eos # Baso # Neutrophils % (Manual) Band Neutrophils % Lymphocytes % (Manual) Monocytes % (Manual) Eosinophils % (Manual) Platelet Estimate RBC Morphology APTT Puncture Site pCO2 pO2 HCO3 ABG pH ABG Total CO2 ABG O2 Saturation ABG Base Excess ABG Hemoglobin ABG Carboxyhemoglobin POC ABG HHb (Measured) ABG Methemoglobin James Test A-a O2 Difference Respiratory Index Hgb O2 Saturation Vent Mode Mechanical Rate FiO2 Tidal Volume PEEP Sodium Potassium Chloride Carbon Dioxide Anion Gap BUN Creatinine Est GFR ( Amer) Est GFR (Non-Af Amer) POC Glucose (mg/dL) 157 H Random Glucose Calcium Phosphorus Magnesium Total Bilirubin AST ALT Alkaline Phosphatase Total Creatine Kinase CK-MB (Mass) Troponin I, Quant NT-Pro-B Natriuret Pep Total Protein Albumin Globulin Albumin/Globulin Ratio Blood Type B POSITIVE Antibody Screen Negative 02/02/17 02/02/17 16:14 19:12 WBC RBC Hgb Hct MCV MCH MCHC RDW Plt Count MPV Neut % (Auto) Lymph % (Auto) [place] % (Auto) Eos % (Auto) Baso % (Auto) Neut # Lymph # [place] # Eos # Baso # Neutrophils % (Manual) Band Neutrophils % Lymphocytes % (Manual) Monocytes % (Manual) Eosinophils % (Manual) Platelet Estimate RBC Morphology APTT Puncture Site pCO2 pO2 HCO3 ABG pH ABG Total CO2 ABG O2 Saturation ABG Base Excess ABG Hemoglobin ABG Carboxyhemoglobin POC ABG HHb (Measured) ABG Methemoglobin James Test A-a O2 Difference Respiratory Index Hgb O2 Saturation Vent Mode Mechanical Rate FiO2 Tidal Volume PEEP Sodium Potassium Chloride Carbon Dioxide Anion Gap BUN Creatinine Est GFR ( Amer) Est GFR (Non-Af Amer) POC Glucose (mg/dL) 182 H Random Glucose Calcium Phosphorus Magnesium Total Bilirubin AST ALT Alkaline Phosphatase Total Creatine Kinase CK-MB (Mass) Troponin I, Quant NT-Pro-B Natriuret Pep 4300 H Total Protein Albumin Globulin Albumin/Globulin Ratio Blood Type Antibody Screen
[2017-02-02] MEDS: Rosuvastatin Calcium 2.5 mg Tab PO SCH (22:05)
--- NOTE | 2017-02-02 22:10 | US ---
EXAM: US Retroperitoneal Limited, Renal CLINICAL HISTORY: 71 years old, male; Condition or disease; Other: Arf TECHNIQUE: Real-time ultrasound of the retroperitoneum (limited) with image documentation. COMPARISON: CT - ANGIOGRAPHY SANDRA WILLIAM 12/27/2016 6:50:06 PM FINDINGS: Limitations: Study is very limited, as the patient is obese and the study was performed portably in the ICU. Aorta: Aorta is not seen. Right kidney: Right kidney measures 12.5 CM longitudinally. No hydronephrosis. Cortical lobulation and thinning. No stones. Left kidney: Left kidney measures 11.7 CM longitudinally. No hydronephrosis. Cortical lobulation and thinning. No stones. Bladder: Urinary bladder is not distended. Carr balloon in place. IMPRESSION: 1. Limited study. 2. No hydronephrosis. 3. Remainder of findings as above.
--- NOTE | 2017-02-03 01:07 | PN ---
DATE: SUBJECTIVE: The patient was seen and examined on the bedside. Looking comfortable, steadily intubated, awake and alert, off the sedation, looks like he is hungry and thirsty and he is uncomfortable with ET tube maybe . Today later of the day, we will try to extubate the tube. Steadily getting heparin IV ACS protocol and according to Dr. Jaimes, Cath on Sunday in [facility]. PHYSICAL EXAMINATION VITAL SIGNS: Temperature 98.5, pulse 68, respiratory rate 18, blood pressure 131/53, pulse oximeter 100%. HEENT: Head is normocephalic and atraumatic. Eyes opened. Nose is patent. Mucous membranes are moist. Have ET tube. NECK: Supple. No carotid bruits or thyromegaly. HEART: S1 and S2 positive. LUNGS: Clear to auscultation. ABDOMEN: Soft. Bowel sounds are resent. No organomegaly. EXTREMITIES: No edema. No cyanosis. NEUROLOGICAL: The patient is awake, but still intubated. Cannot complete neurological examination. LABORATORY DATA: White blood cells of 15.0, hemoglobin of 7.9, hematocrit of 23.9, and platelets of 233. Sodium is 140, potassium is 3.8, BUN is 28, creatinine is 2.7, and glucose is 138. MEDICATIONS: Tylenol, Plavix, Glucotrol, Pepcid, piperacillin/tazobactam, NS, Dextrose, insulin, Cozaar, Lopressor, Versed, and Percocet. ASSESSMENT: Mr. Alber Vicente is 71 years old male with leucocytosis, anemia, renal insufficiency, hyperglycemia, hypertension, [id number] elevation myocardial infarction, nonsustained myocardial infarction, dyslipidemia, coronary artery disease, and thrombocytopenia. PLAN: Plan was to extubate later on. Continue heparin. continue beta-blockers , I appreciate Dr. Jaimes input. Seen by Dr. Peter Arauz, [facility], Infectious Disease Dr. Morrow and Podiatry is on the case. He has osteomyelitis of the toe. We will followup. Zuleima Jackson MD [facility]
[2017-02-03] MEDS: Heparin25000 units/250ml 1/2NS 25,000 UNITS/250 ML BAG IV PRN ×2 (02:20→19:16)
[2017-02-03 05:11] LABS: BASO # 0.1 K/uL (0.0-0.2); BASO % 0.3 % (0.0-2.0); EOS # 0.1 K/uL (0.0-0.7); EOS % 0.5 % (0.0-4.0); HEMATOCRIT 27.6 % (35.0-51.0); LYMPH # 0.7 K/uL (1.0-4.3); LYMPH % 3.8 % (20.0-40.0); MEAN CELL VOLUME 87.6 fL (80.0-94.0); MEAN CORPUSCULAR HEMOGLOBIN 28.6 pg (27.0-31.0); MEAN CORPUSCULAR HGB CONC 32.7 g/dL (33.0-37.0); MEAN PLATELET VOLUME 7.7 fL (7.2-11.7); MONO # 1.3 K/uL (0.0-0.8); PLATELET COUNT 271 K/uL (130-400); RED CELL DISTRIBUTION WIDTH 13.6 % (11.5-14.5); WHITE BLOOD COUNT 18.9 K/uL (4.8-10.8)
[2017-02-03 05:33] LABS: POTASSIUM 3.7 mmol/L (3.6-5.2)
[2017-02-03 05:35] LABS: ALB/GLOB RATIO 0.9 (1.0-2.1); BILIRUBIN,TOTAL 0.8 mg/dL (0.2-1.3); TOTAL PROTEIN 6.7 g/dL (6.3-8.3)
[2017-02-03 05:36] LABS: CALCIUM 8.5 mg/dl (8.6-10.4)
[2017-02-03 05:37] LABS: MAGNESIUM 1.6 mg/dL (1.6-2.3)
[2017-02-03] MEDS: Piperacillin/Tazobact 2.25 GM in Sodium Chloride 100 ML IVPB SCH ×4 (06:00→19:05)
[2017-02-03] MEDS: (Novolin R) Insulin Human Regular 100 units/ml vial SC SCH ×4 (08:00→21:59)
[2017-02-03 08:25] LABS: TOTAL CELLS COUNTED 100
[2017-02-03 08:26] LABS: NEUTROPHIL 89 % (50-75)
--- NOTE | 2017-02-03 14:35 | CP.PCM.PN ---
Subjective - Date & Time of Evaluation Date of Evaluation: 02/03/17 Time of Evaluation: 14:00 - Subjective Subjective: clinically same Objective - Vital Signs/Intake and Output Vital Signs (last 24 hours): Temp Pulse Resp BP Pulse Ox 98.5 F 98 H 20 162/79 H 95 02/03/17 12:00 02/03/17 04:00 02/03/17 04:00 02/03/17 04:00 02/02/17 19:04 Intake and Output: 02/03/17 02/03/17 06:59 18:59 Intake Total 707.4 251.6 Output Total 1180 500 Balance -472.6 -248.4 - Medications Medications: Current Medications Acetaminophen (Tylenol 325mg Tab) 650 mg PO Q6 PRN PRN Reason: Pain, moderate (4-7) Last Admin: 02/02/17 13:40 Dose: 650 mg Clopidogrel Bisulfate (Plavix) 75 mg PO DAILY [facility] Last Admin: 02/03/17 10:59 Dose: 75 mg Famotidine (Pepcid) 20 mg IVP DAILY [facility] Last Admin: 02/03/17 10:58 Dose: 20 mg Glipizide (Glucotrol) 5 mg PO BID [facility] Last Admin: 02/03/17 10:59 Dose: 5 mg Heparin Sodium/Sodium Chloride (Heparin 94390 Units/250ml 1/2 Normal Saline) 25 ,000 units in 250 mls @ 15.24 mls/hr IV .[id number] PRN; Protocol; 12 UNITS/KG/HR PRN Reason: PROTOCOL Last Admin: 02/03/17 02:20 Dose: 12 units/kg/hr, 15.24 mls/hr Piperacillin Sod/Tazobactam (Sod 2.25 gm/ Sodium Chloride) 100 mls @ 200 mls/ hr IVPB Q6 [facility] Last Admin: 02/03/17 06:00 Dose: 200 mls/hr Insulin Human Regular (Novolin R) 0 unit SC ACHS [facility] PRN Reason: Protocol Last Admin: 02/03/17 13:08 Dose: 2 unit Losartan Potassium (Cozaar) 50 mg PO DAILY [facility] Last Admin: 02/03/17 10:59 Dose: 50 mg Metoprolol Tartrate (Lopressor) 25 mg PO Q12 [facility] Last Admin: 02/02/17 22:05 Dose: 25 mg Rosuvastatin Calcium (Crestor) 2.5 mg PO HS [facility] Last Admin: 02/02/17 22:05 Dose: 2.5 mg - Labs Labs: 02/03/17 05:03 02/03/17 05:03 PT 13.1 SECONDS (9.7-12.2) H 01/31/17 07:15 INR 1.2 01/31/17 07:15 APTT 53 SECONDS (21-34) H D 02/03/17 05:03 - Constitutional Appears: Well - Head Exam Head Exam: ATRAUMATIC, NORMAL INSPECTION, NORMOCEPHALIC - Eye Exam Eye Exam: EOMI, Normal appearance, PERRL Pupil Exam: NORMAL ACCOMODATION, PERRL - ENT Exam ENT Exam: Mucous Membranes Moist, Normal Exam - Neck Exam Neck Exam: Full ROM, Normal Inspection. absent: Lymphadenopathy - Respiratory Exam Respiratory Exam: Decreased Breath Sounds - Cardiovascular Exam Cardiovascular Exam: REGULAR RHYTHM, +S1, +S2 - GI/Abdominal Exam GI & Abdominal Exam: Soft, Diminished Bowel Sounds - Rectal Exam Rectal Exam: Deferred
--- NOTE | 2017-02-03 16:31 | CP.PCM.PN ---
Subjective - Date & Time of Evaluation Date of Evaluation: 02/03/17 Time of Evaluation: 11:00 - Subjective Subjective: Podiatry Progress Note - Dr. Tate: This is a 71 yo male patient seen at bedside in ICU this morning POD #3 partial amp right hallux. Pt is seen resting in bed at time of visit. Patient is no longer intubated and is AAOx3, NAD. Pt denies any pain to the right lower extremity today and states that he is hungry. Seen with offloading boots applied to bl lower extremities. Denies f/n/v/c/sob/cp/weakness or dizziness today. Objective - Vital Signs/Intake and Output Vital Signs (last 24 hours): Temp Pulse Resp BP Pulse Ox 98.5 F 94 H 20 150/70 99 02/03/17 12:00 02/03/17 14:00 02/03/17 14:00 02/03/17 15:03 02/03/17 14:00 Intake and Output: 02/03/17 02/03/17 06:59 18:59 Intake Total 707.4 251.6 Output Total 1180 500 Balance -472.6 -248.4 - Medications Medications: Current Medications Acetaminophen (Tylenol 325mg Tab) 650 mg PO Q6 PRN PRN Reason: Pain, moderate (4-7) Last Admin: 02/02/17 13:40 Dose: 650 mg Clopidogrel Bisulfate (Plavix) 75 mg PO DAILY [facility] Last Admin: 02/03/17 10:59 Dose: 75 mg Famotidine (Pepcid) 20 mg IVP DAILY [facility] Last Admin: 02/03/17 10:58 Dose: 20 mg Glipizide (Glucotrol) 5 mg PO BID [facility] Last Admin: 02/03/17 10:59 Dose: 5 mg Heparin Sodium/Sodium Chloride (Heparin 84020 Units/250ml 1/2 Normal Saline) 25 ,000 units in 250 mls @ 15.24 mls/hr IV .[id number] PRN; Protocol; 12 UNITS/KG/HR PRN Reason: PROTOCOL Last Admin: 02/03/17 02:20 Dose: 12 units/kg/hr, 15.24 mls/hr Piperacillin Sod/Tazobactam (Sod 2.25 gm/ Sodium Chloride) 100 mls @ 200 mls/ hr IVPB Q6 [facility] Last Admin: 02/03/17 12:00 Dose: 200 mls/hr Insulin Human Regular (Novolin R) 0 unit SC ACHS [place] PRN Reason: Protocol Last Admin: 02/03/17 13:08 Dose: 2 unit Losartan Potassium (Cozaar) 50 mg PO DAILY [facility] Last Admin: 02/03/17 10:59 Dose: 50 mg Metoprolol Tartrate (Lopressor) 25 mg PO Q12 [facility] Last Admin: 02/03/17 15:03 Dose: 25 mg Rosuvastatin Calcium (Crestor) 2.5 mg PO HS [facility] Last Admin: 02/02/17 22:05 Dose: 2.5 mg - Labs Labs: 02/03/17 05:03 02/03/17 05:03 PT 13.1 SECONDS (9.7-12.2) H 01/31/17 07:15 INR 1.2 01/31/17 07:15 APTT 53 SECONDS (21-34) H D 02/03/17 05:03 - Constitutional Appears: Well, Non-toxic, No Acute Distress - Neurological Exam Neurological Exam: Alert, Awake, Oriented x3 - Psychiatric Exam Psychiatric exam: Normal Affect, Normal Mood Assessment and Plan - Assessment and Plan (Free Text) Assessment: 71 yo male patient with ulceration and +OM right hallux 2/2 diabetic neuropathy POD #3 partial amputation right hallux Plan: Pt S&E at bedside in ICU Chart, labs and vitals reviewed: afebrile, wbc elevated today 18.9 Wound cx (01/31 intra-op): Proteus M, gram neg nat (prelim) Dressing to right foot let clean, dry and intact c/w offloading boot bl LE c/w IV abx per ID Stable per podiatry Will follow closely
--- NOTE | 2017-02-03 17:06 | CP.CCUPN ---
CCU Subjective - Physician Review Events Since Last Encounter (Free Text): 02/03/17 17:05 patient was extubated yesterday. Today patient is alert and awake. Cough noted. Wheezing present. Patient is currently nothing by mouth because of the swallowing difficulty. Clinically otherwise stable. Vital signs stable. chest wheezing bilaterally Regular heart sounds Nontender abdomen Edema generalized noted assessment/recommendation 71 male with a history of hypertension, diabetes, renal insufficiency. Underwent a surgical intervention. Postoperative heart failure. respiratory failure extubated. ardiology follow-up Physical therapyswallow evaluation follow-up CCU Objective - Vital Signs / Intake & Output Vital Signs (Last 4 hours): Vital Signs Pulse Resp BP Pulse Ox 02/03/17 15:03 150/70 02/03/17 14:00 94 H 20 162/71 H 99 Intake and Output (Last 8hrs): Intake & Output 02/03/17 02/03/17 02/03/17 06:59 14:59 22:59 Intake Total 496.6 251.6 Output Total 695 500 Balance -198.4 -248.4 Weight 282 lb Intake: IV 250 Intake, IV Amount 221.6 121.6 Left Hand 121.6 121.6 Right PICC 100 Oral 25 130 Output: Urine 695 500 Urethral (Carr) 695 500 Other: # Bowel Movements 0 - Physical Exam Head: Positive for: Atraumatic, Normocephalic Pupils: Negative for: PERRL Extroacular Muscles: Negative for: EOMI Respiratory/Chest: Positive for: Clear to Auscultation Cardiovascular: Positive for: Regular Rate and Rhythm, Normal S1, S2 Abdomen: Positive for: Distention, Normal Bowel Sounds. Negative for: Tenderness Skin: Positive for: Warm Psychiatric: Negative for: Alert, Oriented x 3 - Medications Active Medications: Active Medications Generic Name Dose Route Start Last Admin Trade Name Freq PRN Reason Stop Dose Admin Acetaminophen 650 mg 01/30/17 15:56 02/02/17 13:40 Tylenol 325mg Tab PO 650 mg Q6 PRN Administration Pain, moderate (4-7) Clopidogrel Bisulfate 75 mg 02/02/17 10:00 02/03/17 10:59 Plavix PO 75 mg DAILY [facility] Administration Famotidine 20 mg 02/02/17 10:00 02/03/17 10:58 Pepcid IVP 20 mg DAILY [facility] Administration Glipizide 5 mg 02/02/17 10:00 02/03/17 10:59 Glucotrol PO 5 mg BID [facility] Administration Heparin Sodium/Sodium Chloride 25,000 units in 250 mls @ 15.24 mls/hr 16:00 02/03/17 02:20 Heparin 41564 Units/250ml 1/2 Normal Saline IV 12 units/kg/hr .[id number] PRN 15.24 mls/hr PROTOCOL Administration Protocol 12 UNITS/KG/HR Piperacillin Sod/Tazobactam 100 mls @ 200 mls/hr 02/02/17 12:00 02/03/17 12: 00 Sod 2.25 gm/ Sodium Chloride IVPB 200 mls/hr Q6 [facility] Administration Insulin Human Regular 0 unit 02/02/17 16:30 02/03/17 13:08 Novolin R SC 2 unit ACHS [facility] Administration Protocol Losartan Potassium 50 mg 01/30/17 16:30 02/03/17 10:59 Cozaar PO 50 mg DAILY [facility] Administration Metoprolol Tartrate 25 mg 02/01/17 22:00 02/03/17 15:03 Lopressor PO 25 mg Q12 [facility] Administration Rosuvastatin Calcium 2.5 mg 01/30/17 22:30 02/02/17 22:05 Crestor PO 2.5 mg HS [facility] Administration - Patient Studies Lab Studies: Microbiology Studies 01/30/17 07:55 Blood Culture - Preliminary Blood NO GROWTH AFTER 4 DAYS 01/30/17 08:10 Blood Culture - Preliminary Blood NO GROWTH AFTER 4 DAYS 01/31/17 10:00 Gram Stain - Final Foot - Right Wound Culture - Final Proteus Mirabilis Escherichia Coli 02/01/17 02:29 MRSA Culture (Admit) - Final Naris MRSA NOT DETECTED Lab Studies 02/03/17 02/03/17 02/03/17 Range/Units 16:48 11:35 07:19 WBC (4.8-10.8) K/uL RBC (4.40-5.90) Mil/uL Hgb (12.0-18.0) g/dL Hct (35.0-51.0) % MCV (80.0-94.0) fL MCH (27.0-31.0) pg MCHC (33.0-37.0) g/dL RDW (11.5-14.5) % Plt Count (130-400) K/uL MPV (7.2-11.7) fL Neut % (Auto) (50.0-75.0) % Lymph % (Auto) (20.0-40.0) % [place] % (Auto) (0.0-10.0) % Eos % (Auto) (0.0-4.0) % Baso % (Auto) (0.0-2.0) % Neut # (1.8-7.0) K/uL Lymph # (1.0-4.3) K/uL [place] # (0.0-0.8) K/uL Eos # (0.0-0.7) K/uL Baso # (0.0-0.2) K/uL Neutrophils % (Manual) (50-75) % Band Neutrophils % (0-2) % Lymphocytes % (Manual) (20-40) % Monocytes % (Manual) (0-10) % Platelet Estimate (NORMAL) RBC Morphology APTT (21-34) SECONDS Sodium (132-148) mmol/L Potassium (3.6-5.2) mmol/L Chloride (98-107) mmol/L Carbon Dioxide (22-30) mmol/L Anion Gap (10-20) BUN (9-20) mg/dL Creatinine (0.8-1.5) MG/DL Est GFR ( Amer) Est GFR (Non-Af Amer) POC Glucose (mg/dL) 166 H 244 H 235 H (65-110) mg/dL Random Glucose (75-110) mg/dL Calcium (8.6-10.4) mg/dl Phosphorus (2.5-4.5) mg/dL Magnesium (1.6-2.3) mg/dL Total Bilirubin (0.2-1.3) mg/dL AST (17-59) U/L ALT (21-72) U/L Alkaline Phosphatase (38-126) U/L NT-Pro-B Natriuret Pep (0-900) pg/mL Total Protein (6.3-8.3) g/dL Albumin (3.5-5.0) g/dL Globulin (2.2-3.9) gm/dL Albumin/Globulin Ratio (1.0-2.1) Ur Random Sodium mmol/L Complement C3 (88.0-165.0) mg/dL Complement C4 (14.0-44.0) mg/dL Hep Bs Antibody (NEGATIVE) 02/03/17 02/03/17 02/03/17 Range/Units 05:03 05:03 05:03 WBC (4.8-10.8) K/uL RBC (4.40-5.90) Mil/uL Hgb (12.0-18.0) g/dL Hct (35.0-51.0) % MCV (80.0-94.0) fL MCH (27.0-31.0) pg MCHC (33.0-37.0) g/dL RDW (11.5-14.5) % Plt Count (130-400) K/uL MPV (7.2-11.7) fL Neut % (Auto) (50.0-75.0) % Lymph % (Auto) (20.0-40.0) % [place] % (Auto) (0.0-10.0) % Eos % (Auto) (0.0-4.0) % Baso % (Auto) (0.0-2.0) % Neut # (1.8-7.0) K/uL Lymph # (1.0-4.3) K/uL [place] # (0.0-0.8) K/uL Eos # (0.0-0.7) K/uL Baso # (0.0-0.2) K/uL Neutrophils % (Manual) (50-75) % Band Neutrophils % (0-2) % Lymphocytes % (Manual) (20-40) % Monocytes % (Manual) (0-10) % Platelet Estimate (NORMAL) RBC Morphology APTT 53 H D (21-34) SECONDS Sodium 140 (132-148) mmol/L Potassium 3.7 (3.6-5.2) mmol/L Chloride 101 (98-107) mmol/L Carbon Dioxide 19 L (22-30) mmol/L Anion Gap 24 H (10-20) BUN 34 H (9-20) mg/dL Creatinine 2.5 H (0.8-1.5) MG/DL Est GFR ( Amer) 31 Est GFR (Non-Af Amer) 26 POC Glucose (mg/dL) (65-110) mg/dL Random Glucose 207 H (75-110) mg/dL Calcium 8.5 L (8.6-10.4) mg/dl Phosphorus 3.0 (2.5-4.5) mg/dL Magnesium 1.6 (1.6-2.3) mg/dL Total Bilirubin 0.8 (0.2-1.3) mg/dL AST 40 (17-59) U/L ALT 32 (21-72) U/L Alkaline Phosphatase 59 (38-126) U/L NT-Pro-B Natriuret Pep (0-900) pg/mL Total Protein 6.7 (6.3-8.3) g/dL Albumin 3.2 L (3.5-5.0) g/dL Globulin 3.5 (2.2-3.9) gm/dL Albumin/Globulin Ratio 0.9 L (1.0-2.1) Ur Random Sodium mmol/L Complement C3 (88.0-165.0) mg/dL Complement C4 (14.0-44.0) mg/dL Hep Bs Antibody (NEGATIVE) 02/03/17 02/03/17 02/03/17 Range/Units 05:03 05:03 05:03 WBC 18.9 H (4.8-10.8) K/uL RBC 3.15 L (4.40-5.90) Mil/uL Hgb 9.0 L (12.0-18.0) g/dL Hct 27.6 L (35.0-51.0) % MCV 87.6 (80.0-94.0) fL MCH 28.6 (27.0-31.0) pg MCHC 32.7 L (33.0-37.0) g/dL RDW 13.6 (11.5-14.5) % Plt Count 271 (130-400) K/uL MPV 7.7 (7.2-11.7) fL Neut % (Auto) 88.4 H (50.0-75.0) % Lymph % (Auto) 3.8 L (20.0-40.0) % [place] % (Auto) 7.0 (0.0-10.0) % Eos % (Auto) 0.5 (0.0-4.0) % Baso % (Auto) 0.3 (0.0-2.0) % Neut # 16.7 H (1.8-7.0) K/uL Lymph # 0.7 L (1.0-4.3) K/uL [place] # 1.3 H (0.0-0.8) K/uL Eos # 0.1 (0.0-0.7) K/uL Baso # 0.1 (0.0-0.2) K/uL Neutrophils % (Manual) 89 H (50-75) % Band Neutrophils % 1 (0-2) % Lymphocytes % (Manual) 3 L (20-40) % Monocytes % (Manual) 7 (0-10) % Platelet Estimate Normal (NORMAL) RBC Morphology Normal APTT (21-34) SECONDS Sodium (132-148) mmol/L Potassium (3.6-5.2) mmol/L Chloride (98-107) mmol/L Carbon Dioxide (22-30) mmol/L Anion Gap (10-20) BUN (9-20) mg/dL Creatinine (0.8-1.5) MG/DL Est GFR ( Amer) Est GFR (Non-Af Amer) POC Glucose (mg/dL) (65-110) mg/dL Random Glucose (75-110) mg/dL Calcium (8.6-10.4) mg/dl Phosphorus (2.5-4.5) mg/dL Magnesium (1.6-2.3) mg/dL Total Bilirubin (0.2-1.3) mg/dL AST (17-59) U/L ALT (21-72) U/L Alkaline Phosphatase (38-126) U/L NT-Pro-B Natriuret Pep (0-900) pg/mL Total Protein (6.3-8.3) g/dL Albumin (3.5-5.0) g/dL Globulin (2.2-3.9) gm/dL Albumin/Globulin Ratio (1.0-2.1) Ur Random Sodium mmol/L Complement C3 111.0 (88.0-165.0) mg/dL Complement C4 25.5 (14.0-44.0) mg/dL Hep Bs Antibody Negative (NEGATIVE) 09/30/17 09/29/17 09/29/17 Range/Units 04:59 21:12 19:12 WBC (4.8-10.8) K/uL RBC (4.40-5.90) Mil/uL Hgb (12.0-18.0) g/dL Hct (35.0-51.0) % MCV (80.0-94.0) fL MCH (27.0-31.0) pg MCHC (33.0-37.0) g/dL RDW (11.5-14.5) % Plt Count (130-400) K/uL MPV (7.2-11.7) fL Neut % (Auto) (50.0-75.0) % Lymph % (Auto) (20.0-40.0) % [place] % (Auto) (0.0-10.0) % Eos % (Auto) (0.0-4.0) % Baso % (Auto) (0.0-2.0) % Neut # (1.8-7.0) K/uL Lymph # (1.0-4.3) K/uL [place] # (0.0-0.8) K/uL Eos # (0.0-0.7) K/uL Baso # (0.0-0.2) K/uL Neutrophils % (Manual) (50-75) % Band Neutrophils % (0-2) % Lymphocytes % (Manual) (20-40) % Monocytes % (Manual) (0-10) % Platelet Estimate (NORMAL) RBC Morphology APTT (21-34) SECONDS Sodium (132-148) mmol/L Potassium (3.6-5.2) mmol/L Chloride (98-107) mmol/L Carbon Dioxide (22-30) mmol/L Anion Gap (10-20) BUN (9-20) mg/dL Creatinine (0.8-1.5) MG/DL Est GFR ( Amer) Est GFR (Non-Af Amer) POC Glucose (mg/dL) 218 H (65-110) mg/dL Random Glucose (75-110) mg/dL Calcium (8.6-10.4) mg/dl Phosphorus (2.5-4.5) mg/dL Magnesium (1.6-2.3) mg/dL Total Bilirubin (0.2-1.3) mg/dL AST (17-59) U/L ALT (21-72) U/L Alkaline Phosphatase (38-126) U/L NT-Pro-B Natriuret Pep 4300 H (0-900) pg/mL Total Protein (6.3-8.3) g/dL Albumin (3.5-5.0) g/dL Globulin (2.2-3.9) gm/dL Albumin/Globulin Ratio (1.0-2.1) Ur Random Sodium 28 mmol/L Complement C3 (88.0-165.0) mg/dL Complement C4 (14.0-44.0) mg/dL Hep Bs Antibody (NEGATIVE) Laboratory Results - last 24 hr 02/02/17 02/02/17 02/03/17 19:12 21:12 04:59 WBC RBC Hgb Hct MCV MCH MCHC RDW Plt Count MPV Neut % (Auto) Lymph % (Auto) [place] % (Auto) Eos % (Auto) Baso % (Auto) Neut # Lymph # [place] # Eos # Baso # Neutrophils % (Manual) Band Neutrophils % Lymphocytes % (Manual) Monocytes % (Manual) Platelet Estimate RBC Morphology APTT Sodium Potassium Chloride Carbon Dioxide Anion Gap BUN Creatinine Est GFR ( Amer) Est GFR (Non-Af Amer) POC Glucose (mg/dL) 218 H Random Glucose Calcium Phosphorus Magnesium Total Bilirubin AST ALT Alkaline Phosphatase NT-Pro-B Natriuret Pep 4300 H Total Protein Albumin Globulin Albumin/Globulin Ratio Ur Random Sodium 28 Complement C3 Complement C4 Hep Bs Antibody 02/03/17 02/03/17 02/03/17 05:03 05:03 05:03 WBC 18.9 H RBC 3.15 L Hgb 9.0 L Hct 27.6 L MCV 87.6 MCH 28.6 MCHC 32.7 L RDW 13.6 Plt Count 271 MPV 7.7 Neut % (Auto) 88.4 H Lymph % (Auto) 3.8 L [place] % (Auto) 7.0 Eos % (Auto) 0.5 Baso % (Auto) 0.3 Neut # 16.7 H Lymph # 0.7 L [place] # 1.3 H Eos # 0.1 Baso # 0.1 Neutrophils % (Manual) 89 H Band Neutrophils % 1 Lymphocytes % (Manual) 3 L Monocytes % (Manual) 7 Platelet Estimate Normal RBC Morphology Normal APTT Sodium Potassium Chloride Carbon Dioxide Anion Gap BUN Creatinine Est GFR ( Amer) Est GFR (Non-Af Amer) POC Glucose (mg/dL) Random Glucose Calcium Phosphorus Magnesium Total Bilirubin AST ALT Alkaline Phosphatase NT-Pro-B Natriuret Pep Total Protein Albumin Globulin Albumin/Globulin Ratio Ur Random Sodium Complement C3 111.0 Complement C4 25.5 Hep Bs Antibody Negative 02/03/17 02/03/17 02/03/17 05:03 05:03 05:03 WBC RBC Hgb Hct MCV MCH MCHC RDW Plt Count MPV Neut % (Auto) Lymph % (Auto) [place] % (Auto) Eos % (Auto) Baso % (Auto) Neut # Lymph # [place] # Eos # Baso # Neutrophils % (Manual) Band Neutrophils % Lymphocytes % (Manual) Monocytes % (Manual) Platelet Estimate RBC Morphology APTT 53 H D Sodium 140 Potassium 3.7 Chloride 101 Carbon Dioxide 19 L Anion Gap 24 H BUN 34 H Creatinine 2.5 H Est GFR ( Amer) 31 Est GFR (Non-Af Amer) 26 POC Glucose (mg/dL) Random Glucose 207 H Calcium 8.5 L Phosphorus 3.0 Magnesium 1.6 Total Bilirubin 0.8 AST 40 ALT 32 Alkaline Phosphatase 59 NT-Pro-B Natriuret Pep Total Protein 6.7 Albumin 3.2 L Globulin 3.5 Albumin/Globulin Ratio 0.9 L Ur Random Sodium Complement C3 Complement C4 Hep Bs Antibody 02/03/17 02/03/17 02/03/17 07:19 11:35 16:48 WBC RBC Hgb Hct MCV MCH MCHC RDW Plt Count MPV Neut % (Auto) Lymph % (Auto) [place] % (Auto) Eos % (Auto) Baso % (Auto) Neut # Lymph # [place] # Eos # Baso # Neutrophils % (Manual) Band Neutrophils % Lymphocytes % (Manual) Monocytes % (Manual) Platelet Estimate RBC Morphology APTT Sodium Potassium Chloride Carbon Dioxide Anion Gap BUN Creatinine Est GFR ( Amer) Est GFR (Non-Af Amer) POC Glucose (mg/dL) 235 H 244 H 166 H Random Glucose Calcium Phosphorus Magnesium Total Bilirubin AST ALT Alkaline Phosphatase NT-Pro-B Natriuret Pep Total Protein Albumin Globulin Albumin/Globulin Ratio Ur Random Sodium Complement C3 Complement C4 Hep Bs Antibody Fingerstick Blood Sugar Results: 244 Critical Care Progress Note - Nutrition Nutrition: Nutrition Category Date Time Status Heart Healthy Diet [DIET] Diets 02/02/17 Dinner Active NPO Diet [DIET] Diets 02/04/17 Breakfast Active
--- NOTE | 2017-02-03 20:08 | PN ---
DATE: SUBJECTIVE: The patient is a 71 years old male. The patient is seen and examined at the bedside early in the morning in the unit. Discussion done with manager mortgage and the patient's nursing staff. The patient was extubated yesterday. Today, he is awake and alert, but coughing during conversation and telling us that he is hungry and thirsty. Nurse tried to give water and he was choking on that. Then we made the patient n.p.o. because of swallowing difficulty. Had generalized body edema like anasarca. PHYSICAL EXAMINATION: VITAL SIGNS: Temperature 94, pulse 80 , blood pressure 162/71, and respiratory rate 18. HEENT: Head, normocephalic and atraumatic. Eyes, PERRLA. Extraocular muscles intact. Conjunctivae clear. Nose patent. Mucous membranes moist. NECK: Supple. No carotid bruits. No thyromegaly. CHEST: Bilaterally symmetrical. HEART: S1 and S2 positive. LUNGS: Positive wheezing bilaterally. ABDOMEN: Soft. Bowel sounds positive. No organomegaly. EXTREMITIES: No edema. No cyanosis. NEUROLOGICAL: The patient is awake and alert. Moving all 4 extremities. No focal deficits. MEDICATIONS: Plavix, Pepcid, Glucotrol, piperacillin/tazobactam, insulin, Lopressor, and Crestor. LABORATORY DATA: Glucose 166, sodium 140, potassium 3.7, BUN 34, creatinine 2.5, calcium 8.7, AST 40, ALT 32. ASSESSMENT AND PLAN: Mr. Jules Campo is a 71 years old male with history of hypertension, diabetes, renal insufficiency underwent surgical intervention of amputation of the toe by podiatry, postoperative congestive heart failure, respiratory failure, pulmonary edema, was intubated, now extubated, and known ST-elevation myocardial infarction. Cardiology is on the case. Swallowing evaluation ordered. Discussion done with manager mortgage. Truck Bench Mechanic is on the case. Today is postoperative day #3 partial amputation of right hallux. The patient oriented x3. boots, apply to the lower extremity. We will continue intensive care treatment. Gastrointestinal and deep venous thrombosis prophylaxis. Swallowing evaluation. September be Sunday, the patient will go for a catheter. Repeat labs. We will follow. Zuleima Jackson MD [facility] # [id number]
[2017-02-03] MEDS: Rosuvastatin Calcium 2.5 mg Tab PO SCH (22:04)
--- NOTE | 2017-02-03 23:46 | CP.PCM.PN ---
Subjective - Date & Time of Evaluation Date of Evaluation: 02/03/17 Time of Evaluation: 23:45 Objective - Vital Signs/Intake and Output Vital Signs (last 24 hours): Temp Pulse Resp BP Pulse Ox 99.4 F 62 20 138/61 98 02/03/17 20:00 02/03/17 23:00 02/03/17 23:00 02/03/17 23:00 02/03/17 23:00 Intake and Output: 02/03/17 02/04/17 18:59 06:59 Intake Total 382.0 360.8 Output Total 700 145 Balance -318.0 215.8 - Medications Medications: Current Medications Acetaminophen (Tylenol 325mg Tab) 650 mg PO Q6 PRN PRN Reason: Pain, moderate (4-7) Last Admin: 02/03/17 19:03 Dose: 650 mg Clopidogrel Bisulfate (Plavix) 75 mg PO DAILY [facility] Last Admin: 02/03/17 10:59 Dose: 75 mg Famotidine (Pepcid) 20 mg IVP DAILY [facility] Last Admin: 02/03/17 10:58 Dose: 20 mg Glipizide (Glucotrol) 5 mg PO BID [facility] Last Admin: 02/03/17 19:22 Dose: 5 mg Heparin Sodium/Sodium Chloride (Heparin 89760 Units/250ml 1/2 Normal Saline) 25 ,000 units in 250 mls @ 15.24 mls/hr IV .[id number] PRN; Protocol; 12 UNITS/KG/HR PRN Reason: PROTOCOL Last Admin: 02/03/17 19:16 Dose: 12 units/kg/hr, 15.24 mls/hr Piperacillin Sod/Tazobactam (Sod 2.25 gm/ Sodium Chloride) 100 mls @ 200 mls/ hr IVPB Q6 [facility] Last Admin: 02/03/17 19:05 Dose: 200 mls/hr Insulin Human Regular (Novolin R) 0 unit SC ACHS [facility] PRN Reason: Protocol Last Admin: 02/03/17 21:59 Dose: Not Given Losartan Potassium (Cozaar) 50 mg PO DAILY [facility] Last Admin: 02/03/17 10:59 Dose: 50 mg Metoprolol Tartrate (Lopressor) 25 mg PO Q12 [facility] Last Admin: 02/03/17 22:04 Dose: 25 mg Rosuvastatin Calcium (Crestor) 2.5 mg PO HS [facility] Last Admin: 02/03/17 22:04 Dose: 2.5 mg - Labs Labs: 02/03/17 05:03 02/03/17 05:03 PT 13.1 SECONDS (9.7-12.2) H 01/31/17 07:15 INR 1.2 01/31/17 07:15 APTT 53 SECONDS (21-34) H D 02/03/17 05:03 - Constitutional Appears: Well - Head Exam Head Exam: ATRAUMATIC, NORMAL INSPECTION, NORMOCEPHALIC - Eye Exam Eye Exam: EOMI, Normal appearance, PERRL Pupil Exam: NORMAL ACCOMODATION, PERRL - ENT Exam ENT Exam: Mucous Membranes Moist, Normal Exam - Neck Exam Neck Exam: Full ROM, Normal Inspection. absent: Lymphadenopathy - Respiratory Exam Respiratory Exam: Clear to Ausculation Bilateral, Rales, NORMAL BREATHING PATTERN - Cardiovascular Exam Cardiovascular Exam: REGULAR RHYTHM, RRR, +S1, +S2, Murmur - GI/Abdominal Exam GI & Abdominal Exam: Soft, Normal Bowel Sounds. absent: Tenderness - Extremities Exam Extremities Exam: Full ROM, Normal Capillary Refill, Normal Inspection. absent : Joint Swelling, Pedal Edema - Back Exam Back Exam: NORMAL INSPECTION - Neurological Exam Neurological Exam: Alert, Awake, CN II-XII Intact, Normal Gait, Oriented x3 - Psychiatric Exam Psychiatric exam: Normal Affect, Normal Mood - Skin Skin Exam: Dry, Intact, Normal Color, Warm Assessment and Plan (1) NSTEMI (non-ST elevated myocardial infarction) Status: Acute (2) HTN (hypertension) Status: Chronic (3) Dyslipidemia Status: Chronic (4) CAD (coronary artery disease) Status: Acute
[2017-02-04] MEDS: Piperacillin/Tazobact 2.25 GM in Sodium Chloride 100 ML IVPB SCH ×4 (00:04→17:50)
[2017-02-04 07:04] LABS: POTASSIUM 3.6 mmol/L (3.6-5.2)
[2017-02-04 07:06] LABS: ALB/GLOB RATIO 0.8 (1.0-2.1); BILIRUBIN,TOTAL 0.7 mg/dL (0.2-1.3); TOTAL PROTEIN 6.7 g/dL (6.3-8.3)
[2017-02-04 07:07] LABS: MAGNESIUM 1.7 mg/dL (1.6-2.3); PHOSPHOROUS 3.1 mg/dL (2.5-4.5)
[2017-02-04 07:21] LABS: BASO # 0.1 K/uL (0.0-0.2); BASO % 0.5 % (0.0-2.0); EOS # 0.5 K/uL (0.0-0.7); EOS % 3.1 % (0.0-4.0); HEMATOCRIT 28.2 % (35.0-51.0); LYMPH # 1.2 K/uL (1.0-4.3); LYMPH % 8.1 % (20.0-40.0); MEAN CELL VOLUME 86.5 fL (80.0-94.0); MEAN CORPUSCULAR HEMOGLOBIN 28.1 pg (27.0-31.0); MEAN CORPUSCULAR HGB CONC 32.6 g/dL (33.0-37.0); MONO # 0.9 K/uL (0.0-0.8); MONO % 6.3 % (0.0-10.0); NRBC % 0.1 % (0.0-2.0); PLATELET COUNT 272 K/uL (130-400); RED CELL DISTRIBUTION WIDTH 13.6 % (11.5-14.5); WHITE BLOOD COUNT 14.9 K/uL (4.8-10.8)
[2017-02-04] MEDS: (Novolin R) Insulin Human Regular 100 units/ml vial SC SCH ×5 (08:13→17:31)
[2017-02-04 08:18] LABS: NEUTROPHIL 83 % (50-75); TOTAL CELLS COUNTED 100
--- NOTE | 2017-02-04 12:22 | CP.PCM.PN ---
Subjective - Date & Time of Evaluation Date of Evaluation: 02/04/17 Time of Evaluation: 12:20 - Subjective Subjective: Podiatry Progress Note - Dr. Tate: This is a 71 yo male patient seen at bedside in ICU this morning POD #4 partial amp right hallux. Pt is seen resting in bed at time of visit. Patient is no longer intubated and is AAOx3, NAD. Pt denies any pain to the right lower extremity today and states that he is hungry and constipated. Denies f/n/v/c/sob /cp/weakness or dizziness today. Objective - Vital Signs/Intake and Output Vital Signs (last 24 hours): Temp Pulse Resp BP Pulse Ox 99 F 81 24 172/74 H 97 02/04/17 04:00 02/04/17 06:00 02/04/17 06:00 02/04/17 09:35 02/04/17 06:00 Intake and Output: 02/04/17 02/04/17 06:59 18:59 Intake Total 567.2 Output Total 445 Balance 122.2 - Medications Medications: Current Medications Acetaminophen (Tylenol 325mg Tab) 650 mg PO Q6 PRN PRN Reason: Pain, moderate (4-7) Last Admin: 02/04/17 11:14 Dose: 650 mg Clopidogrel Bisulfate (Plavix) 75 mg PO DAILY [facility] Last Admin: 02/04/17 09:35 Dose: 75 mg Famotidine (Pepcid) 20 mg IVP DAILY [facility] Last Admin: 02/04/17 09:35 Dose: 20 mg Glipizide (Glucotrol) 5 mg PO BID [facility] Last Admin: 02/04/17 09:35 Dose: 5 mg Heparin Sodium/Sodium Chloride (Heparin 80561 Units/250ml 1/2 Normal Saline) 25 ,000 units in 250 mls @ 15.24 mls/hr IV .[id number] PRN; Protocol; 12 UNITS/KG/HR PRN Reason: PROTOCOL Last Admin: 02/03/17 19:16 Dose: 12 units/kg/hr, 15.24 mls/hr Piperacillin Sod/Tazobactam (Sod 2.25 gm/ Sodium Chloride) 100 mls @ 200 mls/ hr IVPB Q6 [facility] Last Admin: 02/04/17 11:13 Dose: 200 mls/hr Insulin Human Regular (Novolin R) 0 unit SC ACHS [facility] PRN Reason: Protocol Last Admin: 02/04/17 08:13 Dose: 2 unit Losartan Potassium (Cozaar) 50 mg PO DAILY [facility] Last Admin: 02/04/17 09:35 Dose: 50 mg Metoprolol Tartrate (Lopressor) 25 mg PO Q12 [facility] Last Admin: 02/04/17 09:35 Dose: 25 mg Rosuvastatin Calcium (Crestor) 2.5 mg PO HS [facility] Last Admin: 02/03/17 22:04 Dose: 2.5 mg - Labs Labs: 02/04/17 06:49 02/04/17 06:49 PT 13.1 SECONDS (9.7-12.2) H 01/31/17 07:15 INR 1.2 01/31/17 07:15 APTT 51 SECONDS (21-34) H 02/04/17 06:49 - Constitutional Appears: Well, Non-toxic, No Acute Distress - Extremities Exam Additional comments: Dressing was not changed today at Dr. Tate's request - Neurological Exam Neurological Exam: Alert, Awake, Oriented x3 - Psychiatric Exam Psychiatric exam: Normal Affect, Normal Mood Assessment and Plan - Assessment and Plan (Free Text) Assessment: 71 yo male patient with ulceration and +OM right hallux 2/2 diabetic neuropathy POD #4 partial amputation right hallux Plan: Pt S&E at bedside in ICU Chart, labs and vitals reviewed: afebrile, wbc elevated today 14.9, down from 18.9 yesterday Wound cx (01/31 intra-op): Proteus M, gram neg nat (prelim) Dressing to right foot let clean, dry and intact c/w offloading boot bl LE c/w IV abx per ID Stable per podiatry Will follow closely
[2017-02-04] MEDS: Heparin25000 units/250ml 1/2NS 25,000 UNITS/250 ML BAG IV PRN (13:30)
--- NOTE | 2017-02-04 14:15 | CP.PCM.PN ---
Subjective - Date & Time of Evaluation Date of Evaluation: 02/04/17 Time of Evaluation: 08:00 - Subjective Subjective: 71 yo male patient seen at bedside in ICU this morning POD #3 partial amp right hallux. Pt is seen resting in bed at time of visit. Patient is no longer intubated and is AAOx3, Objective - Vital Signs/Intake and Output Vital Signs (last 24 hours): Temp Pulse Resp BP Pulse Ox 99 F 81 24 172/74 H 97 02/04/17 04:00 02/04/17 06:00 02/04/17 06:00 02/04/17 09:35 02/04/17 06:00 Intake and Output: 02/04/17 02/04/17 06:59 18:59 Intake Total 567.2 250 Output Total 445 Balance 122.2 250 - Medications Medications: Current Medications Acetaminophen (Tylenol 325mg Tab) 650 mg PO Q6 PRN PRN Reason: Pain, moderate (4-7) Last Admin: 02/04/17 11:14 Dose: 650 mg Clopidogrel Bisulfate (Plavix) 75 mg PO DAILY [facility] Last Admin: 02/04/17 09:35 Dose: 75 mg Famotidine (Pepcid) 20 mg IVP DAILY [facility] Last Admin: 02/04/17 09:35 Dose: 20 mg Heparin Sodium/Sodium Chloride (Heparin 31398 Units/250ml 1/2 Normal Saline) 25 ,000 units in 250 mls @ 15.24 mls/hr IV .[id number] PRN; Protocol; 12 UNITS/KG/HR PRN Reason: PROTOCOL Last Admin: 02/04/17 13:30 Dose: 12 units/kg/hr, 15.24 mls/hr Piperacillin Sod/Tazobactam (Sod 2.25 gm/ Sodium Chloride) 100 mls @ 200 mls/ hr IVPB Q6 [facility] Last Admin: 02/04/17 11:13 Dose: 200 mls/hr Insulin Human Regular (Novolin R) 0 unit SC ACHS [facility] PRN Reason: Protocol Metoprolol Tartrate (Lopressor) 25 mg PO Q12 [facility] Last Admin: 02/04/17 09:35 Dose: 25 mg Rosuvastatin Calcium (Crestor) 2.5 mg PO HS [facility] Last Admin: 02/03/17 22:04 Dose: 2.5 mg - Labs Labs: 02/04/17 06:49 02/04/17 06:49 PT 13.1 SECONDS (9.7-12.2) H 01/31/17 07:15 INR 1.2 01/31/17 07:15 APTT 51 SECONDS (21-34) H 02/04/17 06:49 - Constitutional Appears: Non-toxic, Chronically Ill - Head Exam Head Exam: NORMOCEPHALIC - Eye Exam Eye Exam: PERRL. absent: Scleral icterus - ENT Exam ENT Exam: Mucous Membranes Dry - Neck Exam Neck Exam: absent: Lymphadenopathy, Thyromegaly - Respiratory Exam Respiratory Exam: Decreased Breath Sounds, Clear to Ausculation Bilateral - Cardiovascular Exam Cardiovascular Exam: REGULAR RHYTHM, +S1, +S2 - GI/Abdominal Exam GI & Abdominal Exam: Distended, Soft. absent: Tenderness - Rectal Exam Rectal Exam: Deferred - Exam Exam: NORMAL INSPECTION - Extremities Exam Extremities Exam: absent: Calf Tenderness, Pedal Edema, Tenderness - Back Exam Back Exam: absent: CVA tenderness (L), CVA tenderness (R), paraspinal tenderness - Neurological Exam Neurological Exam: Alert, Awake, CN II-XII Intact, Oriented x3 - Psychiatric Exam Psychiatric exam: Normal Mood - Skin Skin Exam: Dry Assessment and Plan (1) Cellulitis Status: Acute (2) Osteomyelitis Status: Acute (3) Toe gangrene Status: Acute (4) Abscess of great toe Status: Acute (5) Diabetes mellitus Status: Chronic - Assessment and Plan (Free Text) Assessment: 71 yo male patient seen at bedside in ICU this morning POD #3 partial amp right hallux. developed post op NSTEMI and resp failure - now extubated cultures done in or show gram neg rods-pansensitive will cont iv antibiotics for now cardiology followng may need cardiac cath
[2017-02-04 14:51] LABS: RBC URINE 4 /hpf (0-3); URINE BACTERIA RARE (<OCC); URINE BILIRUBIN NEGATIVE (NEGATIVE); URINE BLOOD 1+ (NEGATIVE); URINE COLOR Yellow (YELLOW); URINE GLUCOSE (UA) 1+ mg/dL (Normal); URINE KETONE NEGATIVE (NEGATIVE); URINE LEUKOCYTE ESTERASE NEG Leu/uL (Negative); URINE PROTEIN 2+ mg/dL (NEGATIVE); WBC URINE 3 /hpf (0-5)
[2017-02-04 14:58] LABS: CREATININE, RANDOM URINE 140.8 mg/dL
--- NOTE | 2017-02-04 19:56 | CP.PCM.PN ---
Subjective - Date & Time of Evaluation Date of Evaluation: 02/04/17 Time of Evaluation: 13:30 - Subjective Subjective: No events, it was noticed by patient's nurse that patient was coughing with clear liquids not with apple sauce, hence speech an swallow eval consulted. Being treated for post op TX and OM of the right foot. Possible cardiac cath tomorrow. Objective - Vital Signs/Intake and Output Vital Signs (last 24 hours): Temp Pulse Resp BP Pulse Ox 98 F 73 20 161/82 H 99 02/04/17 18:00 02/04/17 19:00 02/04/17 19:00 02/04/17 19:00 02/04/17 19:00 Intake and Output: 02/04/17 02/05/17 18:59 06:59 Intake Total 692.4 45.2 Output Total 770 60 Balance -77.6 -14.8 - Medications Medications: Current Medications Acetaminophen (Tylenol 325mg Tab) 650 mg PO Q6 PRN PRN Reason: Pain, moderate (4-7) Last Admin: 02/04/17 17:46 Dose: 650 mg Clopidogrel Bisulfate (Plavix) 75 mg PO DAILY [facility] Last Admin: 02/04/17 09:35 Dose: 75 mg Famotidine (Pepcid) 20 mg IVP DAILY [facility] Last Admin: 02/04/17 09:35 Dose: 20 mg Heparin Sodium/Sodium Chloride (Heparin 11542 Units/250ml 1/2 Normal Saline) 25 ,000 units in 250 mls @ 15.24 mls/hr IV .[id number] PRN; Protocol; 12 UNITS/KG/HR PRN Reason: PROTOCOL Last Admin: 02/04/17 13:30 Dose: 12 units/kg/hr, 15.24 mls/hr Piperacillin Sod/Tazobactam (Sod 2.25 gm/ Sodium Chloride) 100 mls @ 200 mls/ hr IVPB Q6 [facility] Last Admin: 02/04/17 17:50 Dose: 200 mls/hr Insulin Human Regular (Novolin R) 0 unit SC ACHS [facility] PRN Reason: Protocol Last Admin: 02/04/17 17:00 Dose: 4 unit Metoprolol Tartrate (Lopressor) 25 mg PO Q12 [facility] Last Admin: 02/04/17 09:35 Dose: 25 mg Rosuvastatin Calcium (Crestor) 2.5 mg PO HS [facility] Last Admin: 02/03/17 22:04 Dose: 2.5 mg - Labs Labs: 02/04/17 06:49 02/04/17 06:49 PT 13.1 SECONDS (9.7-12.2) H 01/31/17 07:15 INR 1.2 01/31/17 07:15 APTT 51 SECONDS (21-34) H 02/04/17 06:49 - Additional Findings Additional findings: * HEENT AZEEM * Neck supple * Chest Clear * CVS regular, no gallop or rub * PA soft, nt * Ext right foot dressing * SECOND WORK[employer] sleepy most of the time but arousable, oriented x3 Assessment and Plan - Assessment and Plan (Free Text) Assessment: * Perioperative TX, preserved LV * Right foot OM s/p surg on zosyn * DM on oha, but not eating, also some concern of swallowing difficulty for liquids, poor intake * PORTIA probably from recent stress of the events, will hydrate prior to cath Plan: * Hold on OHA * Swallow eval * Continue zosyn * Continue cardioprotective meds * Will confirm with cardiology if planning for cath then will hydrate due to PORTIA , but will be at risk of pulm edema, since patient is asymptomatic, probably cardiac event has stabilized.
--- NOTE | 2017-02-04 20:34 | CP.PCM.PN ---
Subjective - Date & Time of Evaluation Date of Evaluation: 02/04/17 Time of Evaluation: 13:00 - Subjective Subjective: clinically same Objective - Vital Signs/Intake and Output Vital Signs (last 24 hours): Temp Pulse Resp BP Pulse Ox 98 F 73 20 161/82 H 99 02/04/17 18:00 02/04/17 19:00 02/04/17 19:00 02/04/17 19:00 02/04/17 19:00 Intake and Output: 02/04/17 02/05/17 18:59 06:59 Intake Total 692.4 45.2 Output Total 770 60 Balance -77.6 -14.8 - Medications Medications: Current Medications Acetaminophen (Tylenol 325mg Tab) 650 mg PO Q6 PRN PRN Reason: Pain, moderate (4-7) Last Admin: 02/04/17 17:46 Dose: 650 mg Clopidogrel Bisulfate (Plavix) 75 mg PO DAILY [facility] Last Admin: 02/04/17 09:35 Dose: 75 mg Famotidine (Pepcid) 20 mg IVP DAILY [facility] Last Admin: 02/04/17 09:35 Dose: 20 mg Heparin Sodium/Sodium Chloride (Heparin 17115 Units/250ml 1/2 Normal Saline) 25 ,000 units in 250 mls @ 15.24 mls/hr IV .[id number] PRN; Protocol; 12 UNITS/KG/HR PRN Reason: PROTOCOL Last Admin: 02/04/17 13:30 Dose: 12 units/kg/hr, 15.24 mls/hr Piperacillin Sod/Tazobactam (Sod 2.25 gm/ Sodium Chloride) 100 mls @ 200 mls/ hr IVPB Q6 [facility] Last Admin: 02/04/17 17:50 Dose: 200 mls/hr Insulin Human Regular (Novolin R) 0 unit SC ACHS [facility] PRN Reason: Protocol Last Admin: 02/04/17 17:00 Dose: 4 unit Metoprolol Tartrate (Lopressor) 25 mg PO Q12 [facility] Last Admin: 02/04/17 09:35 Dose: 25 mg Rosuvastatin Calcium (Crestor) 2.5 mg PO HS [facility] Last Admin: 02/03/17 22:04 Dose: 2.5 mg - Labs Labs: 02/04/17 06:49 02/04/17 06:49 PT 13.1 SECONDS (9.7-12.2) H 01/31/17 07:15 INR 1.2 01/31/17 07:15 APTT 51 SECONDS (21-34) H 02/04/17 06:49 - Constitutional Appears: Well - Head Exam Head Exam: ATRAUMATIC, NORMAL INSPECTION, NORMOCEPHALIC - Eye Exam Eye Exam: EOMI, Normal appearance, PERRL Pupil Exam: NORMAL ACCOMODATION, PERRL - ENT Exam ENT Exam: Mucous Membranes Moist, Normal Exam - Neck Exam Neck Exam: Full ROM, Normal Inspection. absent: Lymphadenopathy - Respiratory Exam Respiratory Exam: Decreased Breath Sounds - Cardiovascular Exam Cardiovascular Exam: REGULAR RHYTHM, +S1, +S2 - GI/Abdominal Exam GI & Abdominal Exam: Soft, Diminished Bowel Sounds - Rectal Exam Rectal Exam: Deferred
[2017-02-04] MEDS ORDERED: Oxycodone/Acetaminophen 5/325 mg Tab PO STA (20:51)
[2017-02-04] MEDS: Rosuvastatin Calcium 2.5 mg Tab PO SCH (21:05)
[2017-02-04] MEDS: Sodium Chloride 0.9% 1,000 ML IV SCH (21:07)
--- NOTE | 2017-02-04 22:44 | CP.PCM.PN ---
Subjective - Date & Time of Evaluation Date of Evaluation: 02/04/17 Time of Evaluation: 22:43 Objective - Vital Signs/Intake and Output Vital Signs (last 24 hours): Temp Pulse Resp BP Pulse Ox 98 F 73 20 160/82 H 99 02/04/17 18:00 02/04/17 19:00 02/04/17 19:00 02/04/17 21:05 02/04/17 19:00 Intake and Output: 02/04/17 02/05/17 18:59 06:59 Intake Total 692.4 45.2 Output Total 770 60 Balance -77.6 -14.8 - Medications Medications: Current Medications Acetaminophen (Tylenol 325mg Tab) 650 mg PO Q6 PRN PRN Reason: Pain, moderate (4-7) Last Admin: 02/04/17 17:46 Dose: 650 mg Clopidogrel Bisulfate (Plavix) 75 mg PO DAILY [facility] Last Admin: 02/04/17 09:35 Dose: 75 mg Famotidine (Pepcid) 20 mg IVP DAILY [facility] Last Admin: 02/04/17 09:35 Dose: 20 mg Heparin Sodium/Sodium Chloride (Heparin 61751 Units/250ml 1/2 Normal Saline) 25 ,000 units in 250 mls @ 15.24 mls/hr IV .[id number] PRN; Protocol; 12 UNITS/KG/HR PRN Reason: PROTOCOL Last Admin: 02/04/17 13:30 Dose: 12 units/kg/hr, 15.24 mls/hr Piperacillin Sod/Tazobactam (Sod 2.25 gm/ Sodium Chloride) 100 mls @ 200 mls/ hr IVPB Q6 [facility] Last Admin: 02/04/17 17:50 Dose: 200 mls/hr Sodium Chloride (Sodium Chloride 0.9%) 1,000 mls @ 50 mls/hr IV .Q20H [facility] Last Admin: 02/04/17 21:07 Dose: 50 mls/hr Insulin Human Regular (Novolin R) 0 unit SC ACHS [facility] PRN Reason: Protocol Last Admin: 02/04/17 17:00 Dose: 4 unit Metoprolol Tartrate (Lopressor) 25 mg PO Q12 [facility] Last Admin: 02/04/17 21:05 Dose: 25 mg Rosuvastatin Calcium (Crestor) 2.5 mg PO HS [facility] Last Admin: 02/04/17 21:05 Dose: 2.5 mg - Labs Labs: 02/04/17 06:49 02/04/17 06:49 PT 13.1 SECONDS (9.7-12.2) H 01/31/17 07:15 INR 1.2 01/31/17 07:15 APTT 51 SECONDS (21-34) H 02/04/17 06:49 Assessment and Plan (1) NSTEMI (non-ST elevated myocardial infarction) Status: Acute (2) HTN (hypertension) Status: Chronic (3) Dyslipidemia Status: Chronic (4) CAD (coronary artery disease) Status: Acute
--- NOTE | 2017-02-05 02:32 | PN ---
DATE: SUBJECTIVE: The patient is a 71-year-old male. The patient is seen and examined at the bedside in the unit, still extubated. No big change noted overnight. Discussion done with the nursing staff and the patient. The patient is still coughing with clear liquid, not with applesauce, hence speech and swallow evaluation requested. Getting recovery from the osteomyelitis of the right foot and mainly, the patient will go for cardiac catheterization tomorrow in [facility]. No fever, no chills. According to the patient, he is hungry and thirsty. No headache, no dizziness. PHYSICAL EXAMINATION: VITAL SIGNS: Temperature 98, pulse 73, respiratory rate 20, blood pressure 150/82, and pulse oximetry 99. HEENT: Head, normocephalic and atraumatic. Eyes, PERRLA. Extraocular muscles intact. Conjunctivae clear. Nose patent. Mucous membrane moist. NECK: Supple. No carotid bruits. No thyromegaly. CHEST: Bilaterally symmetrical. HEART: S1 and S2 positive. LUNGS: Clear to auscultation. ABDOMEN: Soft. Bowel sounds positive. No organomegaly. EXTREMITIES: No edema. No cyanosis. NEUROLOGICAL: The patient is awake and alert. Moving all 4 extremities. No focal deficits. MEDICATIONS: Tylenol, Plavix, Pepcid, heparin IV, piperacillin/tazobactam, insulin, Lopressor and Crestor. LABORATORY DATA: White blood cells 14.9, hemoglobin 9.2, hematocrit 28.2, and platelets 272. Sodium 146, potassium 3.6, BUN 37, creatinine 2.3, and glucose 173. ASSESSMENT AND PLAN: Mr. Alber Vicente is a 71-year-old male with leukocytosis; anemia; renal insufficiency; hyperglycemia; perioperative myocardial infarction; preserved left ventricle; right foot osteomyelitis, status post surgery, on Zosyn; swallowing difficulty for liquid, swallowing test evaluated , probably from recent stress of the events, getting hydration before catheterization. We will get swallow evaluation and continue Zosyn and continue cardioprotective medication. History of pulmonary edema. Reviewed Dr. Asher Garces, sales representative gas service's note. Counseling Services Manager, Dr. Clinton Green is on the case. ID, Dr. Morrow is on the case. Also Podiatry is on the case. Dr. Donaldo Jaimes will do catheterization. Gastrointestinal and deep venous thrombosis prophylaxis. Repeat labs. We will follow up. Zuleima Jackson MD MTDJackson
[2017-02-05 06:28] LABS: BASO % 0.3 % (0.0-2.0); EOS # 0.2 K/uL (0.0-0.7); EOS % 1.1 % (0.0-4.0); HEMATOCRIT 28.7 % (35.0-51.0); LYMPH # 0.6 K/uL (1.0-4.3); LYMPH % 4.3 % (20.0-40.0); MEAN CELL VOLUME 87.4 fL (80.0-94.0); MEAN CORPUSCULAR HEMOGLOBIN 29.4 pg (27.0-31.0); MEAN CORPUSCULAR HGB CONC 33.6 g/dL (33.0-37.0); MEAN PLATELET VOLUME 8.2 fL (7.2-11.7); MONO # 0.8 K/uL (0.0-0.8); MONO % 5.8 % (0.0-10.0); PLATELET COUNT 278 K/uL (130-400); RED CELL DISTRIBUTION WIDTH 13.9 % (11.5-14.5); WHITE BLOOD COUNT 13.9 K/uL (4.8-10.8)
[2017-02-05 06:54] LABS: ALB/GLOB RATIO 0.9 (1.0-2.1); BILIRUBIN,TOTAL 0.7 mg/dL (0.2-1.3); CALCIUM 9.3 mg/dl (8.6-10.4); MAGNESIUM 1.7 mg/dL (1.6-2.3); POTASSIUM 3.6 mmol/L (3.6-5.2); TOTAL PROTEIN 6.6 g/dL (6.3-8.3)
[2017-02-05] MEDS: (Novolin R) Insulin Human Regular 100 units/ml vial SC SCH ×5 (07:28→23:21)
[2017-02-05] MEDS: Piperacillin/Tazobact 2.25 GM in Sodium Chloride 100 ML IVPB SCH ×5 (07:30→23:22)
[2017-02-05 08:43] LABS: NEUTROPHIL 87 % (50-75); TOTAL CELLS COUNTED 100
[2017-02-05] MEDS: Heparin25000 units/250ml 1/2NS 25,000 UNITS/250 ML BAG IV PRN (08:59)
[2017-02-05 09:53] LABS: HEP B SURFACE AG CONF *NP
--- NOTE | 2017-02-05 10:41 | CP.PCM.PN ---
Subjective - Date & Time of Evaluation Date of Evaluation: 02/05/17 Time of Evaluation: 09:00 - Subjective Subjective: Being treated for post op AL and OM of the right foot. Possible cardiac cath Objective - Vital Signs/Intake and Output Vital Signs (last 24 hours): Temp Pulse Resp BP Pulse Ox 99.2 F 95 H 22 167/86 H 100 02/05/17 07:30 02/05/17 07:00 02/05/17 07:00 02/05/17 07:00 02/05/17 07:30 Intake and Output: 02/05/17 02/05/17 06:59 18:59 Intake Total 957.2 195.6 Output Total 1160 220 Balance -202.8 -24.4 - Medications Medications: Current Medications Acetaminophen (Tylenol 325mg Tab) 650 mg PO Q6 PRN PRN Reason: Pain, moderate (4-7) Last Admin: 02/04/17 17:46 Dose: 650 mg Clopidogrel Bisulfate (Plavix) 75 mg PO DAILY [facility] Last Admin: 02/05/17 10:00 Dose: Not Given Famotidine (Pepcid) 20 mg IVP DAILY [facility] Last Admin: 02/05/17 10:28 Dose: 20 mg Heparin Sodium/Sodium Chloride (Heparin 99655 Units/250ml 1/2 Normal Saline) 25 ,000 units in 250 mls @ 15.24 mls/hr IV .[id number] PRN; Protocol; 12 UNITS/KG/HR PRN Reason: PROTOCOL Last Admin: 02/05/17 08:59 Dose: 14 units/kg/hr, 17.78 mls/hr Piperacillin Sod/Tazobactam (Sod 2.25 gm/ Sodium Chloride) 100 mls @ 200 mls/ hr IVPB Q6 [facility] Last Admin: 02/05/17 07:30 Dose: 200 mls/hr Sodium Chloride (Sodium Chloride 0.9%) 1,000 mls @ 50 mls/hr IV .Q20H [facility] Last Admin: 02/04/17 21:07 Dose: 50 mls/hr Insulin Human Regular (Novolin R) 0 unit SC ACHS [facility] PRN Reason: Protocol Last Admin: 02/05/17 07:30 Dose: Not Given Metoprolol Tartrate (Lopressor) 25 mg PO Q12 [facility] Last Admin: 02/05/17 10:00 Dose: Not Given Rosuvastatin Calcium (Crestor) 2.5 mg PO HS [facility] Last Admin: 02/04/17 21:05 Dose: 2.5 mg - Labs Labs: 02/05/17 06:22 02/05/17 06:23 PT 13.1 SECONDS (9.7-12.2) H 01/31/17 07:15 INR 1.2 01/31/17 07:15 APTT 35 SECONDS (21-34) H D 02/05/17 07:47 - Constitutional Appears: Non-toxic, Chronically Ill - Head Exam Head Exam: NORMOCEPHALIC - Eye Exam Eye Exam: PERRL. absent: Scleral icterus - ENT Exam ENT Exam: Mucous Membranes Dry, Normal External Ear Exam - Neck Exam Neck Exam: absent: Lymphadenopathy - Respiratory Exam Respiratory Exam: Decreased Breath Sounds - Cardiovascular Exam Cardiovascular Exam: REGULAR RHYTHM - GI/Abdominal Exam GI & Abdominal Exam: Distended, Soft - Rectal Exam Rectal Exam: Deferred - Exam Exam: NORMAL INSPECTION Assessment and Plan (1) Cellulitis Status: Acute (2) Osteomyelitis Status: Acute (3) Toe gangrene Status: Acute (4) Abscess of great toe Status: Acute (5) Diabetes mellitus Status: Chronic
[2017-02-05] MEDS: Sodium Chloride 0.9% 1,000 ML IV SCH ×2 (13:30→22:26)
--- NOTE | 2017-02-05 15:43 | CP.CCUPN ---
CCU Subjective - Physician Review Subjective (Free Text): Patient was seen and examined at bedside. Patient is extubated and states that he feels better. Patient's was at bedside. Patient failed nursing swallowing evaluation at bedside and awaiting awaiting evaluation by speech therapist. CCU Objective - Vital Signs / Intake & Output Vital Signs (Last 4 hours): Vital Signs Temp Pulse Resp BP Pulse Ox 02/05/17 15:00 98.6 F 70 18 152/78 H 98 02/05/17 14:00 67 18 162/91 H 98 02/05/17 13:00 77 18 159/71 H 97 02/05/17 12:00 98.8 F 80 18 156/71 H 100 Intake and Output (Last 8hrs): Intake & Output 02/05/17 02/05/17 02/05/17 06:59 14:59 22:59 Intake Total 706.4 601.8 67.7 Output Total 900 880 100 Balance -193.6 -278.2 -32.3 Intake: IV 250 Intake, IV Amount 456.4 601.8 67.7 Left Forearm 601.8 67.7 Right Hand 456.4 Oral 0 0 Output: Urine 900 880 100 Urethral (Carr) 900 880 100 Other: # Bowel Movements 0 0 0 - Physical Exam Head: Positive for: Atraumatic, Normocephalic Pupils: Negative for: PERRL Extroacular Muscles: Positive for: EOMI Respiratory/Chest: Positive for: Clear to Auscultation Cardiovascular: Positive for: Regular Rate and Rhythm, Normal S1, S2 Abdomen: Positive for: Distention, Normal Bowel Sounds. Negative for: Tenderness Skin: Positive for: Warm, Normal Color Psychiatric: Positive for: Alert, Oriented x 3 - Medications Active Medications: Active Medications Generic Name Dose Route Start Last Admin Trade Name Freq PRN Reason Stop Dose Admin Acetaminophen 650 mg 01/30/17 15:56 02/04/17 17:46 Tylenol 325mg Tab PO 650 mg Q6 PRN Administration Pain, moderate (4-7) Clopidogrel Bisulfate 75 mg 02/02/17 10:00 02/05/17 10:00 Plavix PO Not Given DAILY R[facility]O Famotidine 20 mg 02/02/17 10:00 02/05/17 10:28 Pepcid IVP 20 mg DAILY [facility] Administration Heparin Sodium/Sodium Chloride 25,000 units in 250 mls @ 15.24 mls/hr 16:00 02/05/17 08:59 Heparin 36216 Units/250ml 1/2 Normal Saline IV 14 units/kg/hr .[id number] PRN 17.78 mls/hr PROTOCOL Administration Protocol 12 UNITS/KG/HR Piperacillin Sod/Tazobactam 100 mls @ 200 mls/hr 02/02/17 12:00 02/05/17 12: 24 Sod 2.25 gm/ Sodium Chloride IVPB 200 mls/hr Q6 [facility] Administration Sodium Chloride 1,000 mls @ 50 mls/hr 02/04/17 20:45 02/04/17 21:07 Sodium Chloride 0.9% IV 50 mls/hr .Q20H [facility] Administration Insulin Human Regular 0 unit 02/04/17 13:15 02/05/17 11:30 Novolin R SC Not Given ACHS [facility] Protocol Metoprolol Tartrate 25 mg 02/01/17 22:00 02/05/17 10:00 Lopressor PO Not Given Q12 [facility] Rosuvastatin Calcium 2.5 mg 01/30/17 22:30 02/04/17 21:05 Crestor PO 2.5 mg HS [facility] Administration - Patient Studies Lab Studies: Lab Studies 02/05/17 02/05/17 02/05/17 Range/Units 12:40 07:47 06:23 WBC (4.8-10.8) K/uL RBC (4.40-5.90) Mil/uL Hgb (12.0-18.0) g/dL Hct (35.0-51.0) % MCV (80.0-94.0) fL MCH (27.0-31.0) pg MCHC (33.0-37.0) g/dL RDW (11.5-14.5) % Plt Count (130-400) K/uL MPV (7.2-11.7) fL Neut % (Auto) (50.0-75.0) % Lymph % (Auto) (20.0-40.0) % Hughes % (Auto) (0.0-10.0) % Eos % (Auto) (0.0-4.0) % Baso % (Auto) (0.0-2.0) % Neut # (1.8-7.0) K/uL Lymph # (1.0-4.3) K/uL Hughes # (0.0-0.8) K/uL Eos # (0.0-0.7) K/uL Baso # (0.0-0.2) K/uL Neutrophils % (Manual) (50-75) % Lymphocytes % (Manual) (20-40) % Monocytes % (Manual) (0-10) % Platelet Estimate (NORMAL) RBC Morphology APTT 35 H D (21-34) SECONDS Sodium 141 (132-148) mmol/L Potassium 3.6 (3.6-5.2) mmol/L Chloride 102 (98-107) mmol/L Carbon Dioxide 23 (22-30) mmol/L Anion Gap 20 (10-20) BUN 34 H (9-20) mg/dL Creatinine 2.0 H (0.8-1.5) MG/DL Est GFR ( Amer) 40 Est GFR (Non-Af Amer) 33 POC Glucose (mg/dL) 251 H (65-110) mg/dL Random Glucose 202 H (75-110) mg/dL Calcium 9.3 (8.6-10.4) mg/dl Phosphorus 3.0 (2.5-4.5) mg/dL Magnesium 1.7 (1.6-2.3) mg/dL Total Bilirubin 0.7 (0.2-1.3) mg/dL AST 26 (17-59) U/L ALT 32 (21-72) U/L Alkaline Phosphatase 62 (38-126) U/L Total Protein 6.6 (6.3-8.3) g/dL Albumin 3.1 L (3.5-5.0) g/dL Globulin 3.5 (2.2-3.9) gm/dL Albumin/Globulin Ratio 0.9 L (1.0-2.1) Hep Bs Antigen (NEGATIVE) Hep Bs Ag Neutralizatn 02/05/17 02/04/17 02/04/17 Range/Units 06:22 21:33 16:25 WBC 13.9 H (4.8-10.8) K/uL RBC 3.28 L (4.40-5.90) Mil/uL Hgb 9.6 L (12.0-18.0) g/dL Hct 28.7 L (35.0-51.0) % MCV 87.4 (80.0-94.0) fL MCH 29.4 (27.0-31.0) pg MCHC 33.6 (33.0-37.0) g/dL RDW 13.9 (11.5-14.5) % Plt Count 278 (130-400) K/uL MPV 8.2 (7.2-11.7) fL Neut % (Auto) 88.5 H (50.0-75.0) % Lymph % (Auto) 4.3 L (20.0-40.0) % Hughes % (Auto) 5.8 (0.0-10.0) % Eos % (Auto) 1.1 (0.0-4.0) % Baso % (Auto) 0.3 (0.0-2.0) % Neut # 12.3 H (1.8-7.0) K/uL Lymph # 0.6 L (1.0-4.3) K/uL Hughes # 0.8 (0.0-0.8) K/uL Eos # 0.2 (0.0-0.7) K/uL Baso # 0.0 (0.0-0.2) K/uL Neutrophils % (Manual) 87 H (50-75) % Lymphocytes % (Manual) 6 L (20-40) % Monocytes % (Manual) 7 (0-10) % Platelet Estimate Normal (NORMAL) RBC Morphology Normal APTT (21-34) SECONDS Sodium (132-148) mmol/L Potassium (3.6-5.2) mmol/L Chloride (98-107) mmol/L Carbon Dioxide (22-30) mmol/L Anion Gap (10-20) BUN (9-20) mg/dL Creatinine (0.8-1.5) MG/DL Est GFR ( Amer) Est GFR (Non-Af Amer) POC Glucose (mg/dL) 190 H 254 H (65-110) mg/dL Random Glucose (75-110) mg/dL Calcium (8.6-10.4) mg/dl Phosphorus (2.5-4.5) mg/dL Magnesium (1.6-2.3) mg/dL Total Bilirubin (0.2-1.3) mg/dL AST (17-59) U/L ALT (21-72) U/L Alkaline Phosphatase (38-126) U/L Total Protein (6.3-8.3) g/dL Albumin (3.5-5.0) g/dL Globulin (2.2-3.9) gm/dL Albumin/Globulin Ratio (1.0-2.1) Hep Bs Antigen (NEGATIVE) Hep Bs Ag Neutralizatn 02/03/17 Range/Units 06:32 WBC (4.8-10.8) K/uL RBC (4.40-5.90) Mil/uL Hgb (12.0-18.0) g/dL Hct (35.0-51.0) % MCV (80.0-94.0) fL MCH (27.0-31.0) pg MCHC (33.0-37.0) g/dL RDW (11.5-14.5) % Plt Count (130-400) K/uL MPV (7.2-11.7) fL Neut % (Auto) (50.0-75.0) % Lymph % (Auto) (20.0-40.0) % Hughes % (Auto) (0.0-10.0) % Eos % (Auto) (0.0-4.0) % Baso % (Auto) (0.0-2.0) % Neut # (1.8-7.0) K/uL Lymph # (1.0-4.3) K/uL Hughes # (0.0-0.8) K/uL Eos # (0.0-0.7) K/uL Baso # (0.0-0.2) K/uL Neutrophils % (Manual) (50-75) % Lymphocytes % (Manual) (20-40) % Monocytes % (Manual) (0-10) % Platelet Estimate (NORMAL) RBC Morphology APTT (21-34) SECONDS Sodium (132-148) mmol/L Potassium (3.6-5.2) mmol/L Chloride (98-107) mmol/L Carbon Dioxide (22-30) mmol/L Anion Gap (10-20) BUN (9-20) mg/dL Creatinine (0.8-1.5) MG/DL Est GFR ( Amer) Est GFR (Non-Af Amer) POC Glucose (mg/dL) (65-110) mg/dL Random Glucose (75-110) mg/dL Calcium (8.6-10.4) mg/dl Phosphorus (2.5-4.5) mg/dL Magnesium (1.6-2.3) mg/dL Total Bilirubin (0.2-1.3) mg/dL AST (17-59) U/L ALT (21-72) U/L Alkaline Phosphatase (38-126) U/L Total Protein (6.3-8.3) g/dL Albumin (3.5-5.0) g/dL Globulin (2.2-3.9) gm/dL Albumin/Globulin Ratio (1.0-2.1) Hep Bs Antigen Negative (NEGATIVE) Hep 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 Laboratory Results - last 24 hr 02/03/17 02/04/17 02/04/17 06:32 16:25 21:33 WBC RBC Hgb Hct MCV MCH MCHC RDW Plt Count MPV Neut % (Auto) Lymph % (Auto) Hughes % (Auto) Eos % (Auto) Baso % (Auto) Neut # Lymph # Hughes # Eos # Baso # Neutrophils % (Manual) Lymphocytes % (Manual) Monocytes % (Manual) Platelet Estimate RBC Morphology APTT Sodium Potassium Chloride Carbon Dioxide Anion Gap BUN Creatinine Est GFR ( Amer) Est GFR (Non-Af Amer) POC Glucose (mg/dL) 254 H 190 H Random Glucose Calcium Phosphorus Magnesium Total Bilirubin AST ALT Alkaline Phosphatase Total Protein Albumin Globulin Albumin/Globulin Ratio Hep Bs Antigen Negative Hep Bs Ag 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 02/05/17 02/05/17 02/05/17 06:22 06:23 07:47 WBC 13.9 H RBC 3.28 L Hgb 9.6 L Hct 28.7 L MCV 87.4 MCH 29.4 MCHC 33.6 RDW 13.9 Plt Count 278 MPV 8.2 Neut % (Auto) 88.5 H Lymph % (Auto) 4.3 L Hughes % (Auto) 5.8 Eos % (Auto) 1.1 Baso % (Auto) 0.3 Neut # 12.3 H Lymph # 0.6 L Hughes # 0.8 Eos # 0.2 Baso # 0.0 Neutrophils % (Manual) 87 H Lymphocytes % (Manual) 6 L Monocytes % (Manual) 7 Platelet Estimate Normal RBC Morphology Normal APTT 35 H D Sodium 141 Potassium 3.6 Chloride 102 Carbon Dioxide 23 Anion Gap 20 BUN 34 H Creatinine 2.0 H Est GFR ( Amer) 40 Est GFR (Non-Af Amer) 33 POC Glucose (mg/dL) Random Glucose 202 H Calcium 9.3 Phosphorus 3.0 Magnesium 1.7 Total Bilirubin 0.7 AST 26 ALT 32 Alkaline Phosphatase 62 Total Protein 6.6 Albumin 3.1 L Globulin 3.5 Albumin/Globulin Ratio 0.9 L Hep Bs Antigen Hep Bs Ag Neutralizatn 02/05/17 12:40 WBC RBC Hgb Hct MCV MCH MCHC RDW Plt Count MPV Neut % (Auto) Lymph % (Auto) Hughes % (Auto) Eos % (Auto) Baso % (Auto) Neut # Lymph # Hughes # Eos # Baso # Neutrophils % (Manual) Lymphocytes % (Manual) Monocytes % (Manual) Platelet Estimate RBC Morphology APTT Sodium Potassium Chloride Carbon Dioxide Anion Gap BUN Creatinine Est GFR ( Amer) Est GFR (Non-Af Amer) POC Glucose (mg/dL) 251 H Random Glucose Calcium Phosphorus Magnesium Total Bilirubin AST ALT Alkaline Phosphatase Total Protein Albumin Globulin Albumin/Globulin Ratio Hep Bs Antigen Hep Bs Ag Neutralizatn Fingerstick Blood Sugar Results: 190 Review of Systems - Constitutional Constitutional: Weakness. absent: Fever, Chills, Sweats - EENT Eyes: absent: Change in Vision Ears: absent: Dizziness - Cardiovascular Cardiovascular: absent: Chest Pain, Diaphoresis, Dyspnea, Lightheadedness, Palpitations - Respiratory Respiratory: absent: Dyspnea, Wheezing - Gastrointestinal Gastrointestinal: absent: Abdominal Pain, Cramping, Nausea, Vomiting - Neurological Neurological: Weakness - Endocrine Endocrine: Fatigue. 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 Patient was extubated on 02/02/17 Plan: Cardio: Elevated Troponins (27.7--->20.6---> 17.800)NSTEMI and Hx of HTN Cardio, Dr. Jaimes on board * As per cardiology, after hemodynamically stability is achieve, anticipate cardiac catherization * Echocardiogram: LV function is normal and EF is within normal range Medications: Lopressor 25mg PO BID Cozaar 50mg PO daily Aspirin 325mg PO daily Plavix 300mg PO once, loading dose. Plavix 75mg PO daily Crestor 2.5mg PO HS Endo: Accuchecks ISS medium dose protocol Renal: Elevated BUN/Cr Management: * NS @50mls/hr HEME: H/H: Stable, * Transfused 1 unit of PRBC (02/02/17) Neuro: Extubated, alert, oriented and responsive to verbal stimuli ID: Gram negative LEE culture right hallux ( 01/31/17) Medication: Zosyn 3.375gm IV Q6H Prophylaxis: DVT: Heparin drip GI: Pepcid 20mg IV daily Tylenol 650mg PO Q6 PRN Swallow Evaluation Aspiration precaution
--- NOTE | 2017-02-05 16:19 | CP.PCM.PN ---
Subjective - Date & Time of Evaluation Date of Evaluation: 02/05/17 Time of Evaluation: 07:30 - Subjective Subjective: Ai Williamson DO PGY1 - Cardiology Progress Note for Dr. Jaimes Patient seen and examined at bedside in the ICU. Patient is extubated, awake and alert, oriented x3, though very sleepy, reportedly not getting much sleep at night. Patient only complaining of hunger. He denies any CP, SOB, palpitations, dizziness, GARCIA, N/V/D/C, abdominal pain, leg/foot pain. is at bedside, reports that mentation is normal, at baseline. Objective - Vital Signs/Intake and Output Vital Signs (last 24 hours): Temp Pulse Resp BP Pulse Ox 98.6 F 70 18 152/78 H 98 02/05/17 15:00 02/05/17 15:00 02/05/17 15:00 02/05/17 15:00 02/05/17 15:00 Intake and Output: 02/05/17 02/05/17 06:59 18:59 Intake Total 957.2 669.5 Output Total 1160 980 Balance -202.8 -310.5 - Medications Medications: Current Medications Acetaminophen (Tylenol 325mg Tab) 650 mg PO Q6 PRN PRN Reason: Pain, moderate (4-7) Last Admin: 02/04/17 17:46 Dose: 650 mg Clopidogrel Bisulfate (Plavix) 75 mg PO DAILY [facility] Last Admin: 02/05/17 10:00 Dose: Not Given Famotidine (Pepcid) 20 mg IVP DAILY [facility] Last Admin: 02/05/17 10:28 Dose: 20 mg Heparin Sodium/Sodium Chloride (Heparin 34987 Units/250ml 1/2 Normal Saline) 25 ,000 units in 250 mls @ 15.24 mls/hr IV .[id number] PRN; Protocol; 12 UNITS/KG/HR PRN Reason: PROTOCOL Last Admin: 02/05/17 08:59 Dose: 14 units/kg/hr, 17.78 mls/hr Piperacillin Sod/Tazobactam (Sod 2.25 gm/ Sodium Chloride) 100 mls @ 200 mls/ hr IVPB Q6 [facility] Last Admin: 02/05/17 12:24 Dose: 200 mls/hr Sodium Chloride (Sodium Chloride 0.9%) 1,000 mls @ 50 mls/hr IV .Q20H [facility] Last Admin: 02/04/17 21:07 Dose: 50 mls/hr Insulin Human Regular (Novolin R) 0 unit SC ACHS [facility] PRN Reason: Protocol Last Admin: 02/05/17 11:30 Dose: Not Given Metoprolol Tartrate (Lopressor) 50 mg PO Q12 [facility] Rosuvastatin Calcium (Crestor) 20 mg PO HS [facility] - Labs Labs: 02/05/17 06:22 02/05/17 06:23 PT 13.1 SECONDS (9.7-12.2) H 01/31/17 07:15 INR 1.2 01/31/17 07:15 APTT 68 SECONDS (21-34) H D 02/05/17 15:29 - Constitutional Appears: Non-toxic, No Acute Distress, Chronically Ill - Head Exam Head Exam: ATRAUMATIC, NORMOCEPHALIC - Eye Exam Eye Exam: EOMI, Normal appearance - ENT Exam ENT Exam: Mucous Membranes Moist - Neck Exam Neck Exam: Normal Inspection - Respiratory Exam Respiratory Exam: Clear to Ausculation Bilateral. absent: Rales, Rhonchi, Wheezes - Cardiovascular Exam Cardiovascular Exam: RRR, +S1, +S2 - GI/Abdominal Exam GI & Abdominal Exam: Soft. 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 Noted to have NSTEMI, positive troponins Repeat troponins plateaued then trended down Continue heparin drip, BB, ASA, Plavix, Statin Repeat echo normal LVEF, no regional wall motion abnormalities Patient currently asymptomatic, mentation normal Patient was scheduled for LHCx today, but due to PORTIA, was postponed; now scheduled for Sunday02/07/17 Status: Acute (2) CAD (coronary artery disease) Status: Acute (3) Osteomyelitis Assessment & Plan: Patient initially presented with R great toe osteomyelitis, now s/p amputation Podiatry following Status: Acute (4) Dyslipidemia Assessment & Plan: Continue statin; increased crestor to 20mg daily from 2.5mg daily Status: Chronic (5) HTN (hypertension) Assessment & Plan: BP labile, sporadically elevated Increased metoprolol to 50mg PO BID Continue to monitor BP and titrate medications as needed Status: Chronic (6) Diabetes mellitus Assessment & Plan: Stable Management per primary team Maintain euglycemia Status: Chronic
--- NOTE | 2017-02-05 19:45 | CP.PCM.PN ---
Subjective - Date & Time of Evaluation Date of Evaluation: 02/05/17 Time of Evaluation: 13:00 - Subjective Subjective: clinically same Objective - Vital Signs/Intake and Output Vital Signs (last 24 hours): Temp Pulse Resp BP Pulse Ox 98.6 F 76 22 145/86 100 02/05/17 15:00 02/05/17 19:00 02/05/17 19:00 02/05/17 19:00 02/05/17 19:00 Intake and Output: 02/05/17 02/06/17 18:59 06:59 Intake Total 1122.6 17.7 Output Total 1330 60 Balance -207.4 -42.3 - Medications Medications: Current Medications Acetaminophen (Tylenol 325mg Tab) 650 mg PO Q6 PRN PRN Reason: Pain, moderate (4-7) Last Admin: 02/04/17 17:46 Dose: 650 mg Clopidogrel Bisulfate (Plavix) 75 mg PO DAILY [facility] Last Admin: 02/05/17 10:00 Dose: Not Given Famotidine (Pepcid) 20 mg IVP DAILY [facility] Last Admin: 02/05/17 10:28 Dose: 20 mg Heparin Sodium/Sodium Chloride (Heparin 01765 Units/250ml 1/2 Normal Saline) 25 ,000 units in 250 mls @ 15.24 mls/hr IV .[id number] PRN; Protocol; 12 UNITS/KG/HR PRN Reason: PROTOCOL Last Admin: 02/05/17 08:59 Dose: 14 units/kg/hr, 17.78 mls/hr Piperacillin Sod/Tazobactam (Sod 2.25 gm/ Sodium Chloride) 100 mls @ 200 mls/ hr IVPB Q6 [facility] Last Admin: 02/05/17 17:37 Dose: 200 mls/hr Sodium Chloride (Sodium Chloride 0.9%) 1,000 mls @ 50 mls/hr IV .Q20H [facility] Last Admin: 02/05/17 13:30 Dose: 50 mls/hr Insulin Human Regular (Novolin R) 0 unit SC ACHS [facility] PRN Reason: Protocol Last Admin: 02/05/17 16:30 Dose: Not Given Metoprolol Tartrate (Lopressor) 50 mg PO Q12 [facility] Rosuvastatin Calcium (Crestor) 20 mg PO HS [facility] - Labs Labs: 02/05/17 06:22 02/05/17 06:23 PT 13.1 SECONDS (9.7-12.2) H 01/31/17 07:15 INR 1.2 01/31/17 07:15 APTT 68 SECONDS (21-34) H D 02/05/17 15:29 - Constitutional Appears: Well - Head Exam Head Exam: ATRAUMATIC, NORMAL INSPECTION, NORMOCEPHALIC - Eye Exam Eye Exam: EOMI, Normal appearance, PERRL Pupil Exam: NORMAL ACCOMODATION, PERRL - ENT Exam ENT Exam: Mucous Membranes Moist, Normal Exam - Neck Exam Neck Exam: Full ROM, Normal Inspection. absent: Lymphadenopathy - Respiratory Exam Respiratory Exam: Decreased Breath Sounds - Cardiovascular Exam Cardiovascular Exam: REGULAR RHYTHM, +S1, +S2 - GI/Abdominal Exam GI & Abdominal Exam: Soft, Diminished Bowel Sounds - Rectal Exam Rectal Exam: Deferred
[2017-02-06] MEDS: Heparin25000 units/250ml 1/2NS 25,000 UNITS/250 ML BAG IV PRN ×2 (00:25→15:51)
--- NOTE | 2017-02-06 04:56 | PN ---
DATE: SUBJECTIVE: The patient is a 71-year-old male. The patient is seen and examined at the bedside. Looking comfortable. History of intubation and then extubation. The patient has failed nursing evaluation at his bedside and waiting for speech therapist evaluation. No nausea, vomiting. No headache or dizziness. No chest pain or palpitation. PHYSICAL EXAMINATION: VITAL SIGNS: Temperature 98.6, pulse 70, respiratory rate 18, blood pressure 152/78, pulse oximetry 98%. HEENT: Head, normocephalic and atraumatic. Eyes, PERRLA. Extraocular muscle intact. Conjunctivae clear. Nose patent. Mucous membrane moist. NECK: Supple. No carotid bruits. No JVD or thyromegaly. CHEST: Bilaterally symmetrical. HEART: S1 and S2 positive. LUNGS: Clear to auscultation. ABDOMEN: Soft. Bowel sounds positive. No organomegaly. EXTREMITIES: No edema. No cyanosis. NEUROLOGICAL: The patient is awake and alert. Moving all 4 extremities. No focal deficits. MEDICATIONS: Tylenol, Plavix, Pepcid, heparin, piperacillin/tazobactam, NS, insulin, Lopressor and Crestor. LABORATORY DATA: Sodium 141, potassium 3.6, BUN 34, creatinine 2.0, random glucose 202, calcium 9.3, AST 26, ALT 32, white blood cells 13.9, hemoglobin 9.6, hematocrit 28.7, platelets 278. ASSESSMENT: Mr. Alber Vicente is a 71-year-old male with multiple medical problems, uncontrolled diabetes mellitus, arthritis, hypertension, chronic lower extremity edema, status post right hallux partial amputation, postoperative day #5, rapid response on 01/31/2017 for respiratory failure. The patient was intubated, now extubated on 02/02/2017. Troponin is elevated. The patient has qmi-VA-zabriakti myocardial infarction. Dr. Donaldo Jaimes is on the case. As per cardiology, when the patient will become hemodynamically stable, they will get catheterization and echocardiography. PLAN: For cardiology, continue Lopressor, Cozaar, aspirin, Plavix, Crestor. For uncontrolled diabetes mellitus, getting Accu-Chek. Renal insufficiency, getting NS. History of anemia, got blood transfusion. The patient has Gram negative nat cultures, right hallux. Medication was seen as per infectious disease, continue deep venous thrombosis prophylaxis with heparin, GI prophylaxis with Pepcid, Tylenol for pain, swallowing evaluation, aspiration precaution and the patient need catheterization and we will follow up. Zuleima Jackson MD
[2017-02-06] MEDS ORDERED: Labetalol 25mg/5ml Syringe IVP STA ×2 (05:35→16:57)
[2017-02-06] MEDS: Piperacillin/Tazobact 2.25 GM in Sodium Chloride 100 ML IVPB SCH ×3 (05:41→17:57)
[2017-02-06 06:40] LABS: BASO % 0.3 % (0.0-2.0); EOS # 0.2 K/uL (0.0-0.7); HEMATOCRIT 28.9 % (35.0-51.0); LYMPH # 0.9 K/uL (1.0-4.3); LYMPH % 8.9 % (20.0-40.0); MEAN CELL VOLUME 87.6 fL (80.0-94.0); MEAN CORPUSCULAR HEMOGLOBIN 29.2 pg (27.0-31.0); MEAN CORPUSCULAR HGB CONC 33.4 g/dL (33.0-37.0); MEAN PLATELET VOLUME 7.9 fL (7.2-11.7); MONO # 0.8 K/uL (0.0-0.8); PLATELET COUNT 282 K/uL (130-400); RED CELL DISTRIBUTION WIDTH 13.7 % (11.5-14.5); WHITE BLOOD COUNT 10.6 K/uL (4.8-10.8)
[2017-02-06 06:47] LABS: POTASSIUM 3.8 mmol/L (3.6-5.2)
[2017-02-06 06:49] LABS: BILIRUBIN,TOTAL 0.7 mg/dL (0.2-1.3)
[2017-02-06 06:50] LABS: CALCIUM 8.8 mg/dl (8.6-10.4); MAGNESIUM 1.6 mg/dL (1.6-2.3); PHOSPHOROUS 3.3 mg/dL (2.5-4.5); TOTAL PROTEIN 6.7 g/dL (6.3-8.3)
[2017-02-06 06:55] LABS: ALB/GLOB RATIO 0.9 (1.0-2.1)
[2017-02-06 08:28] LABS: EOSINOPHIL 1 % (0-4); NEUTROPHIL 86 % (50-75); TOTAL CELLS COUNTED 100
[2017-02-06 08:29] LABS: GIANT PLATELETS PRESENT
[2017-02-06] MEDS: (Novolin R) Insulin Human Regular 100 units/ml vial SC SCH ×4 (09:09→21:16)
--- NOTE | 2017-02-06 11:52 | CP.PCM.PN ---
Subjective - Date & Time of Evaluation Date of Evaluation: 02/06/17 Time of Evaluation: 08:00 - Subjective Subjective: seen in ICU resting in chair Objective - Vital Signs/Intake and Output Vital Signs (last 24 hours): Temp Pulse Resp BP Pulse Ox 98.4 F 70 14 197/85 H 97 02/06/17 08:00 02/06/17 11:00 02/06/17 11:00 02/06/17 10:02 02/06/17 11:00 Intake and Output: 02/06/17 02/06/17 06:59 18:59 Intake Total 1062.4 438.5 Output Total 800 250 Balance 262.4 188.5 - Medications Medications: Current Medications Acetaminophen (Tylenol 325mg Tab) 650 mg PO Q6 PRN PRN Reason: Pain, moderate (4-7) Last Admin: 02/05/17 20:52 Dose: 650 mg Clopidogrel Bisulfate (Plavix) 75 mg PO DAILY [facility] Last Admin: 02/06/17 09:10 Dose: 75 mg Famotidine (Pepcid) 20 mg IVP DAILY [facility] Last Admin: 02/06/17 09:09 Dose: 20 mg Heparin Sodium/Sodium Chloride (Heparin 21571 Units/250ml 1/2 Normal Saline) 25 ,000 units in 250 mls @ 15.24 mls/hr IV .[id number] PRN; Protocol; 12 UNITS/KG/HR PRN Reason: PROTOCOL Last Admin: 02/06/17 00:25 Dose: 14 units/kg/hr, 17.78 mls/hr Piperacillin Sod/Tazobactam (Sod 2.25 gm/ Sodium Chloride) 100 mls @ 200 mls/ hr IVPB Q6 [facility] Last Admin: 02/06/17 05:41 Dose: 200 mls/hr Sodium Chloride (Sodium Chloride 0.9%) 1,000 mls @ 100 mls/hr IV .Q10H [facility] Insulin Human Regular (Novolin R) 0 unit SC ACHS [facility] PRN Reason: Protocol Last Admin: 02/06/17 09:09 Dose: 2 unit Metoprolol Tartrate (Lopressor) 100 mg PO Q12 [facility] Last Admin: 02/06/17 09:40 Dose: 100 mg Rosuvastatin Calcium (Crestor) 20 mg PO HS [facility] - Labs Labs: 02/06/17 06:26 02/06/17 06:26 PT 13.1 SECONDS (9.7-12.2) H 01/31/17 07:15 INR 1.2 01/31/17 07:15 APTT 63 SECONDS (21-34) H D 02/06/17 06:26 - Constitutional Appears: Non-toxic, Chronically Ill - Head Exam Head Exam: NORMOCEPHALIC - Eye Exam Eye Exam: PERRL - ENT Exam ENT Exam: Mucous Membranes Dry - Neck Exam Neck Exam: absent: Lymphadenopathy - Respiratory Exam Respiratory Exam: Decreased Breath Sounds - Cardiovascular Exam Cardiovascular Exam: REGULAR RHYTHM - GI/Abdominal Exam GI & Abdominal Exam: Distended, Soft - Rectal Exam Rectal Exam: Deferred - Exam Exam: NORMAL INSPECTION - Extremities Exam Extremities Exam: Pedal Edema, Tenderness Additional comments: wound healing - Back Exam Back Exam: absent: CVA tenderness (L), CVA tenderness (R) Assessment and Plan (1) Cellulitis Status: Acute (2) Osteomyelitis Status: Acute (3) Toe gangrene Status: Acute (4) Abscess of great toe Status: Acute (5) Diabetes mellitus Status: Chronic
--- NOTE | 2017-02-06 12:02 | CP.PCM.PN ---
Subjective - Date & Time of Evaluation Date of Evaluation: 02/06/17 Time of Evaluation: 07:00 - Subjective Subjective: Ai Williamson DO PGY1 - Cardiology Progress Note for Dr. Jaimes Patient seen and examined at bedside in the ICU. Patient remains extubated, awake and alert, oriented x3, but was slow to answer regarding time/date, and did not recall why he initially came to the hospital. Patient still only complaining of hunger; he is currently NPO because he failed swallow eval. He denies any CP, SOB, palpitations, dizziness, GARCIA, N/V/D/C, abdominal pain, leg/ foot pain. Objective - Vital Signs/Intake and Output Vital Signs (last 24 hours): Temp Pulse Resp BP Pulse Ox 98.4 F 70 14 197/85 H 97 02/06/17 08:00 02/06/17 11:00 02/06/17 11:00 02/06/17 10:02 02/06/17 11:00 Intake and Output: 02/06/17 02/06/17 06:59 18:59 Intake Total 1062.4 438.5 Output Total 800 250 Balance 262.4 188.5 - Medications Medications: Current Medications Acetaminophen (Tylenol 325mg Tab) 650 mg PO Q6 PRN PRN Reason: Pain, moderate (4-7) Last Admin: 02/05/17 20:52 Dose: 650 mg Clopidogrel Bisulfate (Plavix) 75 mg PO DAILY [facility] Last Admin: 02/06/17 09:10 Dose: 75 mg Famotidine (Pepcid) 20 mg IVP DAILY [facility] Last Admin: 02/06/17 09:09 Dose: 20 mg Heparin Sodium/Sodium Chloride (Heparin 41266 Units/250ml 1/2 Normal Saline) 25 ,000 units in 250 mls @ 15.24 mls/hr IV .[id number] PRN; Protocol; 12 UNITS/KG/HR PRN Reason: PROTOCOL Last Admin: 02/06/17 00:25 Dose: 14 units/kg/hr, 17.78 mls/hr Piperacillin Sod/Tazobactam (Sod 2.25 gm/ Sodium Chloride) 100 mls @ 200 mls/ hr IVPB Q6 [facility] Last Admin: 02/06/17 05:41 Dose: 200 mls/hr Sodium Chloride (Sodium Chloride 0.9%) 1,000 mls @ 100 mls/hr IV .Q10H [facility] Insulin Human Regular (Novolin R) 0 unit SC ACHS RORO PRN Reason: Protocol Last Admin: 02/06/17 09:09 Dose: 2 unit Metoprolol Tartrate (Lopressor) 100 mg PO Q12 [facility] Last Admin: 02/06/17 09:40 Dose: 100 mg Rosuvastatin Calcium (Crestor) 20 mg PO HS RORO - Labs Labs: 02/06/17 06:26 02/06/17 06:26 PT 13.1 SECONDS (9.7-12.2) H 01/31/17 07:15 INR 1.2 01/31/17 07:15 APTT 63 SECONDS (21-34) H D 02/06/17 06:26 - Constitutional Appears: Non-toxic, No Acute Distress, Confused, Chronically Ill - Head Exam Head Exam: ATRAUMATIC, NORMOCEPHALIC - Eye Exam Eye Exam: EOMI, Normal appearance - ENT Exam ENT Exam: Mucous Membranes Moist - Neck Exam Neck Exam: Full ROM, Normal Inspection - Respiratory Exam Respiratory Exam: Clear to Ausculation Bilateral. absent: Rales, Rhonchi, Wheezes - Cardiovascular Exam Cardiovascular Exam: RRR, +S1, +S2 - GI/Abdominal Exam GI & Abdominal Exam: Soft. absent: Tenderness - Extremities Exam Extremities Exam: Pedal Edema (trace). 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 Noted to have NSTEMI, positive troponins Repeat troponins plateaued then trended down Continue heparin drip, BB, ASA, Plavix, Statin Repeat echo normal LVEF, no regional wall motion abnormalities Patient currently asymptomatic; mentation at baseline Patient was scheduled for LHCx yesterday, but due to PORTIA, was postponed; PORTIA gradually improving on IVF; now scheduled for Sunday02/07/17 Status: Acute (2) CAD (coronary artery disease) Status: Acute (3) Osteomyelitis Assessment & Plan: Patient initially presented with R great toe osteomyelitis, now s/p amputation Podiatry following Status: Acute (4) Dyslipidemia Assessment & Plan: Continue Statin Status: Chronic (5) HTN (hypertension) Assessment & Plan: BP persistently elevated after medication change yesterday; HR stable Increased metoprolol to 100mg PO BID Continue to monitor BP and titrate medications as needed Status: Chronic (6) Diabetes mellitus Assessment & Plan: Stable Management per primary team Maintain euglycemia Status: Chronic (7) Acute kidney injury Assessment & Plan: Improving Increase IVF from 50cc/hr to 100cc/hr Recheck BMP at 5PM Recheck with AM labs Status: Acute
[2017-02-06] MEDS: Sodium Chloride 0.9% 1,000 ML IV SCH ×3 (12:44→19:30)
--- NOTE | 2017-02-06 15:46 | CP.CCUPN ---
<Marni Barr E - Last Filed: 02/06/17 16:07> CCU Subjective - Physician Review Subjective (Free Text): Patient was seen and examined at bedside. Patient is extubated and states that he feels better. Patient denies chest pain, sob, fever, chills, nausea, vomiting or abdominal pain. Patient seems mildly agitated. Patient continues to complain of hunger, however patient must remains NPO due to failure of swallow evaluation x3. CCU Objective - Vital Signs / Intake & Output Vital Signs (Last 4 hours): Vital Signs Temp Pulse Resp BP Pulse Ox 02/06/17 14:02 66 24 184/79 H 100 02/06/17 14:00 63 20 02/06/17 13:05 73 02/06/17 12:02 61 21 177/80 H 02/06/17 12:00 98.4 F 62 17 Intake and Output (Last 8hrs): Intake & Output 02/06/17 02/06/17 02/06/17 06:59 14:59 22:59 Intake Total 791.6 791.6 117.7 Output Total 560 250 Balance 231.6 541.6 117.7 Weight 308 lb 10.354 oz Intake: IV 250 Intake, IV Amount 541.6 791.6 117.7 Left Forearm 141.6 141.6 17.7 Right PICC 400 650 100 Output: Urine 560 250 Urethral (Carr) 560 250 - Physical Exam Head: Positive for: Atraumatic, Normocephalic Pupils: Negative for: PERRL Extroacular Muscles: Positive for: EOMI Respiratory/Chest: Positive for: Clear to Auscultation Cardiovascular: Positive for: Regular Rate and Rhythm, Normal S1, S2 Abdomen: Positive for: Distention, Normal Bowel Sounds. Negative for: Tenderness Lower Extremity: Positive for: Other (right toe hallux dressing C/D/I) Skin: Positive for: Warm, Normal Color Psychiatric: Positive for: Alert, Oriented x 3 - Medications Active Medications: Active Medications Generic Name Dose Route Start Last Admin Trade Name Freq PRN Reason Stop Dose Admin Acetaminophen 650 mg 01/30/17 15:56 02/05/17 20:52 Tylenol 325mg Tab PO 650 mg Q6 PRN Administration Pain, moderate (4-7) Clopidogrel Bisulfate 75 mg 02/02/17 10:00 02/06/17 09:10 Plavix PO 75 mg DAILY RORO Administration Famotidine 20 mg 02/02/17 10:00 02/06/17 09:09 Pepcid IVP 20 mg DAILY RORO Administration Heparin Sodium/Sodium Chloride 25,000 units in 250 mls @ 15.24 mls/hr 16:00 02/06/17 00:25 Heparin 63416 Units/250ml 1/2 Normal Saline IV 14 units/kg/hr .[id number] PRN 17.78 mls/hr PROTOCOL Administration Protocol 12 UNITS/KG/HR Piperacillin Sod/Tazobactam 100 mls @ 200 mls/hr 02/02/17 12:00 02/06/17 12: 51 Sod 2.25 gm/ Sodium Chloride IVPB 200 mls/hr Q6 R[facility]O Administration Sodium Chloride 1,000 mls @ 100 mls/hr 02/06/17 09:30 02/06/17 12:44 Sodium Chloride 0.9% IV Not Given .Q10H [facility]O Insulin Human Regular 0 unit 02/04/17 13:15 02/06/17 12:50 Novolin R SC 4 unit ACHS RORO Administration Protocol Metoprolol Tartrate 100 mg 02/06/17 10:00 02/06/17 09:40 Lopressor PO 100 mg Q12 [facility]O Administration Rosuvastatin Calcium 20 mg 02/06/17 22:00 Crestor PO HS RORO - Patient Studies Lab Studies: Lab Studies 02/06/17 02/06/17 02/06/17 Range/Units 11:24 07:13 06:26 WBC (4.8-10.8) K/uL RBC (4.40-5.90) Mil/uL Hgb (12.0-18.0) g/dL Hct (35.0-51.0) % MCV (80.0-94.0) fL MCH (27.0-31.0) pg MCHC (33.0-37.0) g/dL RDW (11.5-14.5) % Plt Count (130-400) K/uL MPV (7.2-11.7) fL Neut % (Auto) (50.0-75.0) % Lymph % (Auto) (20.0-40.0) % [place] % (Auto) (0.0-10.0) % Eos % (Auto) (0.0-4.0) % Baso % (Auto) (0.0-2.0) % Neut # (1.8-7.0) K/uL Lymph # (1.0-4.3) K/uL [place] # (0.0-0.8) K/uL Eos # (0.0-0.7) K/uL Baso # (0.0-0.2) K/uL Neutrophils % (Manual) (50-75) % Lymphocytes % (Manual) (20-40) % Monocytes % (Manual) (0-10) % Eosinophils % (Manual) (0-4) % Platelet Estimate (NORMAL) Giant Platelets Hypochromasia (manual) Poikilocytosis (manual Target Cells APTT 63 H D (21-34) SECONDS Sodium (132-148) mmol/L Potassium (3.6-5.2) mmol/L Chloride (98-107) mmol/L Carbon Dioxide (22-30) mmol/L Anion Gap (10-20) BUN (9-20) mg/dL Creatinine (0.8-1.5) MG/DL Est GFR ( Amer) Est GFR (Non-Af Amer) POC Glucose (mg/dL) 259 H 243 H (65-110) mg/dL Random Glucose (75-110) mg/dL Calcium (8.6-10.4) mg/dl Phosphorus (2.5-4.5) mg/dL Magnesium (1.6-2.3) mg/dL Total Bilirubin (0.2-1.3) mg/dL AST (17-59) U/L ALT (21-72) U/L Alkaline Phosphatase (38-126) U/L Total Protein (6.3-8.3) g/dL Albumin (3.5-5.0) g/dL Globulin (2.2-3.9) gm/dL Albumin/Globulin Ratio (1.0-2.1) 02/06/17 02/06/17 02/06/17 Range/Units 06:26 06:26 05:49 WBC 10.6 (4.8-10.8) K/uL RBC 3.30 L (4.40-5.90) Mil/uL Hgb 9.6 L (12.0-18.0) g/dL Hct 28.9 L (35.0-51.0) % MCV 87.6 (80.0-94.0) fL MCH 29.2 (27.0-31.0) pg MCHC 33.4 (33.0-37.0) g/dL RDW 13.7 (11.5-14.5) % Plt Count 282 (130-400) K/uL MPV 7.9 (7.2-11.7) fL Neut % (Auto) 80.8 H (50.0-75.0) % Lymph % (Auto) 8.9 L (20.0-40.0) % [place] % (Auto) 8.0 (0.0-10.0) % Eos % (Auto) 2.0 (0.0-4.0) % Baso % (Auto) 0.3 (0.0-2.0) % Neut # 8.5 H (1.8-7.0) K/uL Lymph # 0.9 L (1.0-4.3) K/uL [place] # 0.8 (0.0-0.8) K/uL Eos # 0.2 (0.0-0.7) K/uL Baso # 0.0 (0.0-0.2) K/uL Neutrophils % (Manual) 86 H (50-75) % Lymphocytes % (Manual) 8 L (20-40) % Monocytes % (Manual) 5 (0-10) % Eosinophils % (Manual) 1 (0-4) % Platelet Estimate Normal (NORMAL) Giant Platelets Present Hypochromasia (manual) Slight Poikilocytosis (manual Slight Target Cells Slight APTT (21-34) SECONDS Sodium 144 (132-148) mmol/L Potassium 3.8 (3.6-5.2) mmol/L Chloride 103 (98-107) mmol/L Carbon Dioxide 24 (22-30) mmol/L Anion Gap 20 (10-20) BUN 35 H (9-20) mg/dL Creatinine 1.9 H (0.8-1.5) MG/DL Est GFR ( Amer) 42 Est GFR (Non-Af Amer) 35 POC Glucose (mg/dL) 72 (65-110) mg/dL Random Glucose 222 H (75-110) mg/dL Calcium 8.8 (8.6-10.4) mg/dl Phosphorus 3.3 (2.5-4.5) mg/dL Magnesium 1.6 (1.6-2.3) mg/dL Total Bilirubin 0.7 (0.2-1.3) mg/dL AST 26 (17-59) U/L ALT 35 (21-72) U/L Alkaline Phosphatase 60 (38-126) U/L Total Protein 6.7 (6.3-8.3) g/dL Albumin 3.1 L (3.5-5.0) g/dL Globulin 3.6 (2.2-3.9) gm/dL Albumin/Globulin Ratio 0.9 L (1.0-2.1) 02/06/17 02/05/17 02/05/17 Range/Units 01:20 22:32 15:29 WBC (4.8-10.8) K/uL RBC (4.40-5.90) Mil/uL Hgb (12.0-18.0) g/dL Hct (35.0-51.0) % MCV (80.0-94.0) fL MCH (27.0-31.0) pg MCHC (33.0-37.0) g/dL RDW (11.5-14.5) % Plt Count (130-400) K/uL MPV (7.2-11.7) fL Neut % (Auto) (50.0-75.0) % Lymph % (Auto) (20.0-40.0) % [place] % (Auto) (0.0-10.0) % Eos % (Auto) (0.0-4.0) % Baso % (Auto) (0.0-2.0) % Neut # (1.8-7.0) K/uL Lymph # (1.0-4.3) K/uL [place] # (0.0-0.8) K/uL Eos # (0.0-0.7) K/uL Baso # (0.0-0.2) K/uL Neutrophils % (Manual) (50-75) % Lymphocytes % (Manual) (20-40) % Monocytes % (Manual) (0-10) % Eosinophils % (Manual) (0-4) % Platelet Estimate (NORMAL) Giant Platelets Hypochromasia (manual) Poikilocytosis (manual Target Cells APTT 48 H D 68 H D (21-34) SECONDS Sodium (132-148) mmol/L Potassium (3.6-5.2) mmol/L Chloride (98-107) mmol/L Carbon Dioxide (22-30) mmol/L Anion Gap (10-20) BUN (9-20) mg/dL Creatinine (0.8-1.5) MG/DL Est GFR ( Amer) Est GFR (Non-Af Amer) POC Glucose (mg/dL) 249 H (65-110) mg/dL Random Glucose (75-110) mg/dL Calcium (8.6-10.4) mg/dl Phosphorus (2.5-4.5) mg/dL Magnesium (1.6-2.3) mg/dL Total Bilirubin (0.2-1.3) mg/dL AST (17-59) U/L ALT (21-72) U/L Alkaline Phosphatase (38-126) U/L Total Protein (6.3-8.3) g/dL Albumin (3.5-5.0) g/dL Globulin (2.2-3.9) gm/dL Albumin/Globulin Ratio (1.0-2.1) Laboratory Results - last 24 hr 02/05/17 02/05/17 02/06/17 15:29 22:32 01:20 WBC RBC Hgb Hct MCV MCH MCHC RDW Plt Count MPV Neut % (Auto) Lymph % (Auto) [place] % (Auto) Eos % (Auto) Baso % (Auto) Neut # Lymph # [place] # Eos # Baso # Neutrophils % (Manual) Lymphocytes % (Manual) Monocytes % (Manual) Eosinophils % (Manual) Platelet Estimate Giant Platelets Hypochromasia (manual) Poikilocytosis (manual Target Cells APTT 68 H D 48 H D Sodium Potassium Chloride Carbon Dioxide Anion Gap BUN Creatinine Est GFR ( Amer) Est GFR (Non-Af Amer) POC Glucose (mg/dL) 249 H Random Glucose Calcium Phosphorus Magnesium Total Bilirubin AST ALT Alkaline Phosphatase Total Protein Albumin Globulin Albumin/Globulin Ratio 02/06/17 02/06/17 02/06/17 05:49 06:26 06:26 WBC 10.6 RBC 3.30 L Hgb 9.6 L Hct 28.9 L MCV 87.6 MCH 29.2 MCHC 33.4 RDW 13.7 Plt Count 282 MPV 7.9 Neut % (Auto) 80.8 H Lymph % (Auto) 8.9 L [place] % (Auto) 8.0 Eos % (Auto) 2.0 Baso % (Auto) 0.3 Neut # 8.5 H Lymph # 0.9 L [place] # 0.8 Eos # 0.2 Baso # 0.0 Neutrophils % (Manual) 86 H Lymphocytes % (Manual) 8 L Monocytes % (Manual) 5 Eosinophils % (Manual) 1 Platelet Estimate Normal Giant Platelets Present Hypochromasia (manual) Slight Poikilocytosis (manual Slight Target Cells Slight APTT Sodium 144 Potassium 3.8 Chloride 103 Carbon Dioxide 24 Anion Gap 20 BUN 35 H Creatinine 1.9 H Est GFR ( Amer) 42 Est GFR (Non-Af Amer) 35 POC Glucose (mg/dL) 72 Random Glucose 222 H Calcium 8.8 Phosphorus 3.3 Magnesium 1.6 Total Bilirubin 0.7 AST 26 ALT 35 Alkaline Phosphatase 60 Total Protein 6.7 Albumin 3.1 L Globulin 3.6 Albumin/Globulin Ratio 0.9 L 02/06/17 02/06/17 02/06/17 06:26 07:13 11:24 WBC RBC Hgb Hct MCV MCH MCHC RDW Plt Count MPV Neut % (Auto) Lymph % (Auto) [place] % (Auto) Eos % (Auto) Baso % (Auto) Neut # Lymph # [place] # Eos # Baso # Neutrophils % (Manual) Lymphocytes % (Manual) Monocytes % (Manual) Eosinophils % (Manual) Platelet Estimate Giant Platelets Hypochromasia (manual) Poikilocytosis (manual Target Cells APTT 63 H D Sodium Potassium Chloride Carbon Dioxide Anion Gap BUN Creatinine Est GFR ( Amer) Est GFR (Non-Af Amer) POC Glucose (mg/dL) 243 H 259 H Random Glucose Calcium Phosphorus Magnesium Total Bilirubin AST ALT Alkaline Phosphatase Total Protein Albumin Globulin Albumin/Globulin Ratio Fingerstick Blood Sugar Results: 249 Review of Systems - Constitutional Constitutional: absent: Fever, Chills, Weakness - EENT Eyes: absent: Change in Vision Ears: absent: Dizziness - Cardiovascular Cardiovascular: absent: Chest Pain, Dyspnea, Leg Edema, Lightheadedness, Palpitations - Respiratory Respiratory: absent: Dyspnea - Gastrointestinal Gastrointestinal: absent: Abdominal Pain, Cramping, Diarrhea, Nausea, Vomiting - Neurological Neurological: Weakness. 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 Patient was extubated on 02/02/17 Plan: Cardio: Elevated Troponins (27.7--->20.6---> 17.800)NSTEMI and Hx of HTN Cardio, Dr. Jaimes on board * As per cardiology, after hemodynamically stability is achieve with improving renal function, anticipate cardiac catherization * Echocardiogram: LV function is normal and EF is within normal range Medications: Lopressor 100mg PO BID Cozaar 50mg PO daily Aspirin 325mg PO daily Plavix 300mg PO once, loading dose. Plavix 75mg PO daily Crestor 20mg PO HS Endo: Accuchecks ISS medium dose protocol Continue to monitor Renal: Elevated BUN/Cr Management: Fluid resuscitation * NS @100mls/hr HEME: H/H: Stable, * Transfused 1 unit of PRBC (02/02/17) Neuro: Extubated, alert, oriented and responsive to verbal stimuli. ID: Gram negative LEE culture right hallux ( 01/31/17) Medication: Zosyn 3.375gm IV Q6H Prophylaxis: DVT: Heparin drip GI: Pepcid 20mg IV daily Tylenol 650mg PO Q6 PRN Out of bed to chair Aspiration precaution <hCarles Herrmann - Last Filed: 02/07/17 18:33> CCU Objective - Vital Signs / Intake & Output Vital Signs (Last 4 hours): Vital Signs Temp Pulse Resp BP Pulse Ox 02/07/17 17:23 94 H 14 196/97 H 99 02/07/17 17:20 97 H 22 206/103 H 100 02/07/17 17:00 92 H 27 H 99 02/07/17 16:54 96 H 28 H 199/97 H 94 L 02/07/17 16:51 95 H 16 198/93 H 94 L 02/07/17 16:43 96 H 15 187/101 H 100 02/07/17 16:26 85 17 229/105 H 100 02/07/17 16:23 85 19 224/108 H 100 02/07/17 16:03 193/105 H 02/07/17 16:00 98.8 F 87 17 100 02/07/17 15:56 94 H 19 193/105 H 97 02/07/17 15:54 90 18 209/100 H 98 02/07/17 15:41 88 16 212/97 H 98 02/07/17 15:35 88 33 H 211/100 H 98 02/07/17 15:00 97 H 20 98 02/07/17 14:55 89 30 H 225/108 H 97 Intake and Output (Last 8hrs): Intake & Output 02/07/17 02/07/17 02/07/17 06:59 14:59 22:59 Intake Total 1192.4 200 100 Output Total 700 50 Balance 492.4 150 100 Intake: IV 250 Intake, IV Amount 942.4 200 100 Left Forearm 142.4 Right PICC 800 200 100 Oral 0 0 Output: Urine 700 50 Condom 50 Urethral (Carr) 500 Urine, Voided 200 - Medications Active Medications: Active Medications Generic Name Dose Route Start Last Admin Trade Name Freq PRN Reason Stop Dose Admin Acetaminophen 650 mg 02/07/17 17:27 Tylenol 650 Mg Supp VA Q6 PRN Pain, moderate (4-7) Clopidogrel Bisulfate 75 mg 02/02/17 10:00 02/07/17 12:41 Plavix PO Not Given DAILY RORO Famotidine 20 mg 02/02/17 10:00 02/07/17 12:43 Pepcid IVP 20 mg DAILY R[facility]O Administration Heparin Sodium/Sodium Chloride 25,000 units in 250 mls @ 15.24 mls/hr 16:00 02/07/17 16:33 Heparin 56848 Units/250ml 1/2 Normal Saline IV 14 units/kg/hr .Q88H05H PRN 17.78 mls/hr PROTOCOL Administration Protocol 12 UNITS/KG/HR Piperacillin Sod/Tazobactam 100 mls @ 200 mls/hr 02/02/17 12:00 02/07/17 18: 16 Sod 2.25 gm/ Sodium Chloride IVPB 200 mls/hr Q6 R[facility]O Administration Sodium Chloride 1,000 mls @ 100 mls/hr 02/06/17 09:30 02/07/17 15:36 Sodium Chloride 0.9% IV Not Given .Q10H R[facility] Acetaminophen 1,000 mg/ 100 mls @ 400 mls/hr 02/07/17 15:44 02/07/17 18:14 Miscellaneous IV 02/08/17 15:45 400 mls/hr Q6 PRN Administration Pain, moderate (4-7) Insulin Human Regular 0 unit 02/04/17 13:15 02/07/17 17:10 Novolin R SC 4 unit ACHS RORO Administration Protocol Metoprolol Tartrate 20 mg 02/07/17 16:07 Lopressor IVP Q6H R[facility]O Morphine Sulfate 1 mg 02/07/17 15:55 Morphine IVP Q4 PRN Pain, severe (8-10) Rosuvastatin Calcium 20 mg 02/06/17 22:00 02/06/17 21:12 Crestor PO 20 mg HS RORO Administration Zolpidem Tartrate 5 mg 02/06/17 20:48 02/06/17 21:12 Ambien PO 02/07/17 20:49 5 mg HS PRN Administration Insomnia - Patient Studies Lab Studies: Lab Studies 02/07/17 02/07/17 02/07/17 Range/Units 16:29 04:50 04:50 WBC (4.8-10.8) K/uL RBC (4.40-5.90) Mil/uL Hgb (12.0-18.0) g/dL Hct (35.0-51.0) % MCV (80.0-94.0) fL MCH (27.0-31.0) pg MCHC (33.0-37.0) g/dL RDW (11.5-14.5) % Plt Count (130-400) K/uL MPV (7.2-11.7) fL Neut % (Auto) (50.0-75.0) % Lymph % (Auto) (20.0-40.0) % [place] % (Auto) (0.0-10.0) % Eos % (Auto) (0.0-4.0) % Baso % (Auto) (0.0-2.0) % Neut # (1.8-7.0) K/uL Lymph # (1.0-4.3) K/uL [place] # (0.0-0.8) K/uL Eos # (0.0-0.7) K/uL Baso # (0.0-0.2) K/uL Neutrophils % (Manual) (50-75) % Lymphocytes % (Manual) (20-40) % Monocytes % (Manual) (0-10) % Platelet Estimate (NORMAL) Poikilocytosis (manual Anisocytosis (manual) PT 14.4 H (9.7-12.2) SECONDS INR 1.3 APTT 78 H D (21-34) SECONDS Sodium 144 (132-148) mmol/L Potassium 3.5 L (3.6-5.2) mmol/L Chloride 105 (98-107) mmol/L Carbon Dioxide 25 (22-30) mmol/L Anion Gap 18 (10-20) BUN 28 H (9-20) mg/dL Creatinine 1.7 H (0.8-1.5) mg/dL Est GFR ( Amer) 48 Est GFR (Non-Af Amer) 40 POC Glucose (mg/dL) 284 H (65-110) mg/dL Random Glucose 253 H (75-110) mg/dL Calcium 9.1 (8.6-10.4) mg/dl Phosphorus 2.8 (2.5-4.5) mg/dL Magnesium 1.6 (1.6-2.3) mg/dL Total Bilirubin 0.6 (0.2-1.3) mg/dL AST 25 (17-59) U/L ALT 34 (21-72) U/L Alkaline Phosphatase 71 (38-126) U/L Total Protein 7.6 (6.3-8.3) g/dL Albumin 3.0 L (3.5-5.0) g/dL Globulin 4.6 H (2.2-3.9) gm/dL Albumin/Globulin Ratio 0.7 L (1.0-2.1) 02/07/17 02/06/17 Range/Units 04:50 21:13 WBC 10.8 (4.8-10.8) K/uL RBC 3.33 L (4.40-5.90) Mil/uL Hgb 9.6 L (12.0-18.0) g/dL Hct 29.0 L (35.0-51.0) % MCV 87.1 (80.0-94.0) fL MCH 28.9 (27.0-31.0) pg MCHC 33.2 (33.0-37.0) g/dL RDW 14.3 (11.5-14.5) % Plt Count 273 (130-400) K/uL MPV 7.9 (7.2-11.7) fL Neut % (Auto) 81.5 H (50.0-75.0) % Lymph % (Auto) 7.6 L (20.0-40.0) % [place] % (Auto) 9.7 (0.0-10.0) % Eos % (Auto) 0.8 (0.0-4.0) % Baso % (Auto) 0.4 (0.0-2.0) % Neut # 8.8 H (1.8-7.0) K/uL Lymph # 0.8 L (1.0-4.3) K/uL [place] # 1.1 H (0.0-0.8) K/uL Eos # 0.1 (0.0-0.7) K/uL Baso # 0.0 (0.0-0.2) K/uL Neutrophils % (Manual) 82 H (50-75) % Lymphocytes % (Manual) 8 L (20-40) % Monocytes % (Manual) 10 (0-10) % Platelet Estimate Normal (NORMAL) Poikilocytosis (manual Slight Anisocytosis (manual) Slight PT (9.7-12.2) SECONDS INR APTT (21-34) SECONDS Sodium (132-148) mmol/L Potassium (3.6-5.2) mmol/L Chloride (98-107) mmol/L Carbon Dioxide (22-30) mmol/L Anion Gap (10-20) BUN (9-20) mg/dL Creatinine (0.8-1.5) mg/dL Est GFR ( Amer) Est GFR (Non-Af Amer) POC Glucose (mg/dL) 305 H (65-110) mg/dL Random Glucose (75-110) mg/dL Calcium (8.6-10.4) mg/dl Phosphorus (2.5-4.5) mg/dL Magnesium (1.6-2.3) mg/dL Total Bilirubin (0.2-1.3) mg/dL AST (17-59) U/L ALT (21-72) U/L Alkaline Phosphatase (38-126) U/L Total Protein (6.3-8.3) g/dL Albumin (3.5-5.0) g/dL Globulin (2.2-3.9) gm/dL Albumin/Globulin Ratio (1.0-2.1) Laboratory Results - last 24 hr 02/06/17 02/07/17 02/07/17 21:13 04:50 04:50 WBC 10.8 RBC 3.33 L Hgb 9.6 L Hct 29.0 L MCV 87.1 MCH 28.9 MCHC 33.2 RDW 14.3 Plt Count 273 MPV 7.9 Neut % (Auto) 81.5 H Lymph % (Auto) 7.6 L [place] % (Auto) 9.7 Eos % (Auto) 0.8 Baso % (Auto) 0.4 Neut # 8.8 H Lymph # 0.8 L [place] # 1.1 H Eos # 0.1 Baso # 0.0 Neutrophils % (Manual) 82 H Lymphocytes % (Manual) 8 L Monocytes % (Manual) 10 Platelet Estimate Normal Poikilocytosis (manual Slight Anisocytosis (manual) Slight PT INR APTT Sodium 144 Potassium 3.5 L Chloride 105 Carbon Dioxide 25 Anion Gap 18 BUN 28 H Creatinine 1.7 H Est GFR ( Amer) 48 Est GFR (Non-Af Amer) 40 POC Glucose (mg/dL) 305 H Random Glucose 253 H Calcium 9.1 Phosphorus 2.8 Magnesium 1.6 Total Bilirubin 0.6 AST 25 ALT 34 Alkaline Phosphatase 71 Total Protein 7.6 Albumin 3.0 L Globulin 4.6 H Albumin/Globulin Ratio 0.7 L 02/07/17 02/07/17 04:50 16:29 WBC RBC Hgb Hct MCV MCH MCHC RDW Plt Count MPV Neut % (Auto) Lymph % (Auto) [place] % (Auto) Eos % (Auto) Baso % (Auto) Neut # Lymph # [place] # Eos # Baso # Neutrophils % (Manual) Lymphocytes % (Manual) Monocytes % (Manual) Platelet Estimate Poikilocytosis (manual Anisocytosis (manual) PT 14.4 H INR 1.3 APTT 78 H D Sodium Potassium Chloride Carbon Dioxide Anion Gap BUN Creatinine Est GFR ( Amer) Est GFR (Non-Af Amer) POC Glucose (mg/dL) 284 H Random Glucose Calcium Phosphorus Magnesium Total Bilirubin AST ALT Alkaline Phosphatase Total Protein Albumin Globulin Albumin/Globulin Ratio Critical Care Progress Note - Nutrition Nutrition: Nutrition Category Date Time Status NPO Diet [DIET] Diets 02/04/17 Breakfast Active Attending/Attestation - Attestation I have personally seen and examined this patient.: Yes I have fully participated in the care of the patient.: Yes I have reviewed all pertinent clinical information: Yes Notes (Text): 02/06/17 Today: Monday, February 06, 2017 The Patient was seen and examined at the bedside, Medical records reviewed, and management issues were discussed and formulated with the house staff. I have reviewed all the relevant clinical, laboratory, hemodynamic, radiographic data and medications Events reviewed Pain issues, skin care, head of the bed elevation, glycemic control were addressed. Cardic cath in AM Plavix , Statins IV Zosyn I concur with resident's assessment and plan of care as transcribed in Dr. Barr note.
[2017-02-06 17:34] LABS: POTASSIUM 3.6 mmol/L (3.6-5.2)
[2017-02-06 17:38] LABS: CALCIUM 8.9 mg/dl (8.6-10.4)
--- NOTE | 2017-02-06 18:34 | CP.PCM.PN ---
Subjective - Date & Time of Evaluation Date of Evaluation: 02/06/17 Time of Evaluation: 14:00 - Subjective Subjective: clinically same Objective - Vital Signs/Intake and Output Vital Signs (last 24 hours): Temp Pulse Resp BP Pulse Ox 97.8 F 66 24 184/79 H 100 02/06/17 16:00 02/06/17 14:02 02/06/17 14:02 02/06/17 14:02 02/06/17 14:02 Intake and Output: 02/06/17 02/06/17 06:59 18:59 Intake Total 1062.4 1512.4 Output Total 800 250 Balance 262.4 1262.4 - Medications Medications: Current Medications Acetaminophen (Tylenol 325mg Tab) 650 mg PO Q6 PRN PRN Reason: Pain, moderate (4-7) Last Admin: 02/05/17 20:52 Dose: 650 mg Clopidogrel Bisulfate (Plavix) 75 mg PO DAILY [facility] Last Admin: 02/06/17 09:10 Dose: 75 mg Famotidine (Pepcid) 20 mg IVP DAILY [facility] Last Admin: 02/06/17 09:09 Dose: 20 mg Heparin Sodium/Sodium Chloride (Heparin 75249 Units/250ml 1/2 Normal Saline) 25 ,000 units in 250 mls @ 15.24 mls/hr IV .[id number] PRN; Protocol; 12 UNITS/KG/HR PRN Reason: PROTOCOL Last Admin: 02/06/17 15:51 Dose: 14 units/kg/hr, 17.78 mls/hr Piperacillin Sod/Tazobactam (Sod 2.25 gm/ Sodium Chloride) 100 mls @ 200 mls/ hr IVPB Q6 [facility] Last Admin: 02/06/17 17:57 Dose: 200 mls/hr Sodium Chloride (Sodium Chloride 0.9%) 1,000 mls @ 100 mls/hr IV .Q10H [facility] Last Admin: 02/06/17 15:53 Dose: 100 mls/hr Insulin Human Regular (Novolin R) 0 unit SC ACHS [facility] PRN Reason: Protocol Last Admin: 02/06/17 17:57 Dose: 4 unit Metoprolol Tartrate (Lopressor) 100 mg PO Q12 [facility] Last Admin: 02/06/17 09:40 Dose: 100 mg Rosuvastatin Calcium (Crestor) 20 mg PO HS [facility] - Labs Labs: 02/06/17 06:26 02/06/17 17:19 PT 13.1 SECONDS (9.7-12.2) H 01/31/17 07:15 INR 1.2 01/31/17 07:15 APTT 63 SECONDS (21-34) H D 02/06/17 06:26 - Constitutional Appears: Well - Head Exam Head Exam: ATRAUMATIC, NORMAL INSPECTION, NORMOCEPHALIC - Eye Exam Eye Exam: EOMI, Normal appearance, PERRL Pupil Exam: NORMAL ACCOMODATION, PERRL - ENT Exam ENT Exam: Mucous Membranes Moist, Normal Exam - Neck Exam Neck Exam: Full ROM, Normal Inspection. absent: Lymphadenopathy - Respiratory Exam Respiratory Exam: Decreased Breath Sounds - Cardiovascular Exam Cardiovascular Exam: REGULAR RHYTHM, +S1, +S2 - GI/Abdominal Exam GI & Abdominal Exam: Soft, Diminished Bowel Sounds - Rectal Exam Rectal Exam: Deferred
--- NOTE | 2017-02-06 20:47 | CP.PCM.PN ---
Subjective - Date & Time of Evaluation Date of Evaluation: 02/06/17 Time of Evaluation: 12:20 - Subjective Subjective: Podiatry Progress Note - Dr. Tariq: 71 y/o male patient seen at bedside in ICU this morning POD #6 s/p partial amp of right great toe. Pt is seen resting in armchair at time of visit. Patient is no longer intubated and is AAOx3, NAD. Pt denies any pain to the right lower extremity today and states that he is hungry and constipated. Denies f/n/v/c/sob /cp/weakness or dizziness today. Objective - Vital Signs/Intake and Output Vital Signs (last 24 hours): Temp Pulse Resp BP Pulse Ox 97.8 F 78 20 158/104 H 100 02/06/17 16:00 02/06/17 19:02 02/06/17 19:02 02/06/17 19:02 02/06/17 19:02 Intake and Output: 02/06/17 02/07/17 18:59 06:59 Intake Total 1512.4 117.7 Output Total 250 200 Balance 1262.4 -82.3 - Medications Medications: Current Medications Acetaminophen (Tylenol 325mg Tab) 650 mg PO Q6 PRN PRN Reason: Pain, moderate (4-7) Last Admin: 02/05/17 20:52 Dose: 650 mg Clopidogrel Bisulfate (Plavix) 75 mg PO DAILY [facility] Last Admin: 02/06/17 09:10 Dose: 75 mg Famotidine (Pepcid) 20 mg IVP DAILY [facility] Last Admin: 02/06/17 09:09 Dose: 20 mg Heparin Sodium/Sodium Chloride (Heparin 43392 Units/250ml 1/2 Normal Saline) 25 ,000 units in 250 mls @ 15.24 mls/hr IV .[id number] PRN; Protocol; 12 UNITS/KG/HR PRN Reason: PROTOCOL Last Admin: 02/06/17 15:51 Dose: 14 units/kg/hr, 17.78 mls/hr Piperacillin Sod/Tazobactam (Sod 2.25 gm/ Sodium Chloride) 100 mls @ 200 mls/ hr IVPB Q6 [facility] Last Admin: 02/06/17 17:57 Dose: 200 mls/hr Sodium Chloride (Sodium Chloride 0.9%) 1,000 mls @ 100 mls/hr IV .Q10H [facility] Last Admin: 02/06/17 19:30 Dose: Not Given Insulin Human Regular (Novolin R) 0 unit SC ACHS [facility] PRN Reason: Protocol Last Admin: 02/06/17 17:57 Dose: 4 unit Metoprolol Tartrate (Lopressor) 100 mg PO Q12 [facility] Last Admin: 02/06/17 09:40 Dose: 100 mg Rosuvastatin Calcium (Crestor) 20 mg PO HS [facility] - Labs Labs: 02/06/17 06:26 02/06/17 17:19 PT 13.1 SECONDS (9.7-12.2) H 01/31/17 07:15 INR 1.2 01/31/17 07:15 APTT 63 SECONDS (21-34) H D 02/06/17 06:26 - Constitutional Appears: Well, Non-toxic, No Acute Distress - Extremities Exam Additional comments: Right foot focused. Dressing intact though disheveled. DERM: Right hallux amputation site visualized, plantar flap is cyanotic and mildly ecchymotic with sores at distal tuft. All sutures remain intact, no active serous drainage noted. No signs of dehiscence noted. VASC: SP and PT pulses graded 1/4. Mild nont-pitting edema noted to right foot. Temperature runs warms to cool proximal to distal. NEURO: Protective sensation grossly diminished. - Neurological Exam Neurological Exam: Alert, Awake, Oriented x3 Assessment and Plan - Assessment and Plan (Free Text) Assessment: 71 yo male patient with ulceration and +OM right hallux 2/2 diabetic neuropathy POD #4 partial amputation right hallux Plan: Pt seen and treated with attending, Dr. Tariq, present. [place], labs, and vitals reviewed. Afebrile, wbc decreased to 10.6, down from 13.9 yesterday. Cleasned surgical site with peroxide, dressed with peroxide wet-to-dry dressing and DSD. Noted roxy [place] amputation site has undergone minor trauma, likely due to patient feet abutting bed frame due to his overall height and his decreased compliance to wear dispensed multipoduis boots at all time while in bed. c/w offloading boots bilaterally. c/w IV abx per ID Discussed with patient and should flap fail or wound dehisce due to these micro-traumas in bed, revisional procedure or proximal amputation may be indicated. Stable per podiatry Will follow closely
[2017-02-06] MEDS ORDERED: Albuterol-Ipratrop 3 mg / 0.5 (3 ml) UD INH STA (23:41)
[2017-02-07] MEDS: Piperacillin/Tazobact 2.25 GM in Sodium Chloride 100 ML IVPB SCH ×5 (00:24→23:29)
[2017-02-07] MEDS: Sodium Chloride 0.9% 1,000 ML IV SCH ×4 (02:58→15:36)
--- NOTE | 2017-02-07 04:32 | PN ---
DATE: SUBJECTIVE: The patient is seen and examined at the bedside, sitting on the chair, looking comfortable, still feeling hungry. No nausea, vomiting, diarrhea. No hematuria or hematochezia. Still has swelling of the leg. The patient is extubated. Today is postoperative day #6 for partial amputation of the right great toe, status post osteomyelitis of the great toe. Oriented x3. No pain in the lower extremities. Only asking about food, constipated. The patient already failed 3 times swallowing evaluation. Denies nausea, vomiting, shortness of breath, chest pain, weakness, dizziness. PHYSICAL EXAMINATION: VITAL SIGNS: Temperature 97.8, pulse 78, respiratory rate 20, blood pressure 150/104, pulse oximetry 100%. HEENT: Head is normocephalic and atraumatic. Eyes, PERRLA. Extraocular muscles are intact. Conjunctivae clear. Nose patent. Mucous membranes moist. NECK: Supple. No carotid bruits, JVD, or thyromegaly. CHEST: Bilaterally symmetrical. HEART: S1 and S2 positive. LUNGS: Clear to auscultation. ABDOMEN: Soft. Bowel sounds positive. No organomegaly. EXTREMITIES: No edema. No cyanosis. NEUROLOGICAL: The patient is awake and alert. Moving all 4 extremities. No focal deficits. MEDICATIONS: Tylenol, Plavix, Pepcid, heparin, piperacillin/tazobactam, NS, insulin, Lopressor, and Crestor. LABORATORY DATA: White blood cells 10.6, hemoglobin 9.6, hematocrit 28.9, platelets 282. Sodium 143, potassium 3.6, BUN 34, creatinine 1.8, glucose 239. ASSESSMENT AND PLAN: Mr. Alber Vicente is a 71-year-old male with anemia, renal insufficiency, hyperglycemia, has ulceration and osteomyelitis of right hallux, diabetic neuropathy, postoperative day #4, partial amputation of the right hallux. Podiatry is on the case, giving dressing. Clean surgical site with peroxide, dressed with peroxide wet to dry dressing and DSB. Seen by fish tender, Dr. Green. History of intubation. Still in the unit. History of arthritis, hypertension, status post rapid response for respiratory distress. The patient was intubated, now extubated on 02/02/2017, elevated troponin, non-ST elevation myocardial infarction. Cardiology is Dr. Jaimes. According to him, we will continue present treatment. Echocardiography to assess the function of left ventricle. Continue Lopressor, Cozaar, aspirin, Plavix, and Crestor. Continue fingerstick. resuscitation. History of anemia and gallbladder transfusion. Gram negative nat with culture right hallux. Medication, Zosyn IV every 6 hours. Deep venous thrombosis with heparin. Gastrointestinal prophylaxis with Pepcid. Tylenol for pain. Out of bed physical therapy, aspiration precautions. We will follow up. Zuleima Jackson MD MTDD
[2017-02-07 05:14] LABS: BASO % 0.4 % (0.0-2.0); EOS # 0.1 K/uL (0.0-0.7); EOS % 0.8 % (0.0-4.0); LYMPH # 0.8 K/uL (1.0-4.3); LYMPH % 7.6 % (20.0-40.0); MEAN CELL VOLUME 87.1 fL (80.0-94.0); MEAN CORPUSCULAR HEMOGLOBIN 28.9 pg (27.0-31.0); MEAN CORPUSCULAR HGB CONC 33.2 g/dL (33.0-37.0); MEAN PLATELET VOLUME 7.9 fL (7.2-11.7); MONO # 1.1 K/uL (0.0-0.8); MONO % 9.7 % (0.0-10.0); NRBC % 0.1 % (0.0-2.0); PLATELET COUNT 273 K/uL (130-400); RED CELL DISTRIBUTION WIDTH 14.3 % (11.5-14.5); WHITE BLOOD COUNT 10.8 K/uL (4.8-10.8)
[2017-02-07 05:18] LABS: INR 1.3; POTASSIUM 3.5 mmol/L (3.6-5.2)
[2017-02-07 05:20] LABS: ALB/GLOB RATIO 0.7 (1.0-2.1); BILIRUBIN,TOTAL 0.6 mg/dL (0.2-1.3); TOTAL PROTEIN 7.6 g/dL (6.3-8.3)
[2017-02-07 05:21] LABS: CALCIUM 9.1 mg/dl (8.6-10.4); MAGNESIUM 1.6 mg/dL (1.6-2.3); PHOSPHOROUS 2.8 mg/dL (2.5-4.5)
[2017-02-07 05:41] LABS: NEUTROPHIL 82 % (50-75); TOTAL CELLS COUNTED 100
[2017-02-07] MEDS ORDERED: Labetalol 25mg/5ml Syringe IVP STA (05:57)
--- NOTE | 2017-02-07 07:03 | CP.PCM.PN ---
Subjective - Date & Time of Evaluation Date of Evaluation: 02/07/17 Time of Evaluation: 08:00 - Subjective Subjective: 2 seperate attemots made to see pt however pt in [facility] for cardiac catheterization. Will see tomorrow Objective - Vital Signs/Intake and Output Vital Signs (last 24 hours): Temp Pulse Resp BP Pulse Ox 99.2 F 82 17 192/96 H 100 02/07/17 04:00 02/07/17 06:09 02/07/17 06:09 02/07/17 06:09 02/07/17 06:09 Intake and Output: 02/07/17 02/07/17 06:59 18:59 Intake Total 1413.5 Output Total 1150 Balance 263.5 - Medications Medications: Current Medications Acetaminophen (Tylenol 325mg Tab) 650 mg PO Q6 PRN PRN Reason: Pain, moderate (4-7) Last Admin: 02/05/17 20:52 Dose: 650 mg Clopidogrel Bisulfate (Plavix) 75 mg PO DAILY [facility] Last Admin: 02/06/17 09:10 Dose: 75 mg Famotidine (Pepcid) 20 mg IVP DAILY [facility] Last Admin: 02/06/17 09:09 Dose: 20 mg Heparin Sodium/Sodium Chloride (Heparin 27692 Units/250ml 1/2 Normal Saline) 25 ,000 units in 250 mls @ 15.24 mls/hr IV .[id number] PRN; Protocol; 12 UNITS/KG/HR PRN Reason: PROTOCOL Last Admin: 02/06/17 15:51 Dose: 14 units/kg/hr, 17.78 mls/hr Piperacillin Sod/Tazobactam (Sod 2.25 gm/ Sodium Chloride) 100 mls @ 200 mls/ hr IVPB Q6 [facility] Last Admin: 02/07/17 05:09 Dose: 200 mls/hr Sodium Chloride (Sodium Chloride 0.9%) 1,000 mls @ 100 mls/hr IV .Q10H [facility] Last Admin: 02/07/17 06:20 Dose: Not Given Insulin Human Regular (Novolin R) 0 unit SC ACHS [facility] PRN Reason: Protocol Last Admin: 02/06/17 21:16 Dose: 2 unit Metoprolol Tartrate (Lopressor) 100 mg PO Q12 [facility] Last Admin: 02/06/17 21:12 Dose: 100 mg Rosuvastatin Calcium (Crestor) 20 mg PO HS [facility] Last Admin: 02/06/17 21:12 Dose: 20 mg Zolpidem Tartrate (Ambien) 5 mg PO HS PRN PRN Reason: Insomnia Stop: 02/07/17 20:49 Last Admin: 02/06/17 21:12 Dose: 5 mg - Labs Labs: 02/07/17 04:50 02/07/17 04:50 PT 14.4 SECONDS (9.7-12.2) H 02/07/17 04:50 INR 1.3 02/07/17 04:50 APTT 78 SECONDS (21-34) H D 02/07/17 04:50
[2017-02-07 07:45] VITALS: BMI 38.5
[2017-02-07] MEDS: (Novolin R) Insulin Human Regular 100 units/ml vial SC SCH ×4 (12:14→21:20)
[2017-02-07] MEDS ORDERED: Labetalol 25mg/5ml Syringe IVP ONE (15:08)
[2017-02-07] MEDS: Metoprolol 1 mg/ml Inj IVP SCH ×3 (15:38→19:00)
--- NOTE | 2017-02-07 15:40 | CP.PCM.CON ---
History of Present Illness - History of Present Illness History of Present Illness: Mr. Campo is a 71-year-old man who has had 3 previous ischemic strokes, CAD, HTN, who has had a complicated hospital course that transpired after he had a right foot osteomyelitis treated with amputation. He subsequently developed PORTIA , flash pulmonary edema and NSTEMI. He was initially transferred to [facility] [place] for heart catheterization, but was found to have worsening left side weakness and change in mental status. He was transferred back to [facility] for further management and planned to start on heparin drip for treatment of NSTEMI. However, this was not started due to suspicion of new acute ischemic stroke. Review of Systems - Review of Systems All systems: reviewed and no additional remarkable complaints except Past Patient History - Infectious Disease Hx of Infectious Diseases: None - Past Medical History & Family History Past Medical History?: Yes - Past Social History Smoking Status: Never Smoked - CARDIAC Hx Hypertension: Yes - PULMONARY Hx Respiratory Disorders: No - NEUROLOGICAL Hx Neurological Disorder: Yes HX Cerebrovascular Accident: Yes (x3) - HEENT Hx HEENT Problems: Yes Hx Cataracts: Yes (BILAT) - RENAL Hx Chronic Kidney Disease: No - ENDOCRINE/METABOLIC Hx Diabetes Mellitus Type 2: Yes - HEMATOLOGICAL/ONCOLOGICAL Hx Blood Disorders: No - INTEGUMENTARY Hx Dermatological Problems: No - MUSCULOSKELETAL/RHEUMATOLOGICAL Hx Arthritis: Yes - GASTROINTESTINAL Hx Gastrointestinal Disorders: No - GENITOURINARY/GYNECOLOGICAL Hx Genitourinary Disorders: Yes Hx Prostate Cancer: Yes (per md) - PSYCHIATRIC Hx Substance Use: No - SURGICAL HISTORY Hx Surgeries: Yes Hx Cataract Extraction: Yes (bilat) Other/Comment: I/D RECTAL ABSCESS X 2 - ANESTHESIA Hx Anesthesia: Yes Hx Anesthesia Reactions: No Hx Malignant Hyperthermia: No Meds Allergies/Adverse Reactions: Allergies Allergy/AdvReac Type Severity Reaction Status Date / Time No Known Allergies Allergy Verified 01/30/17 06:57 - Medications Medications: Current Medications Acetaminophen (Tylenol 325mg Tab) 650 mg PO Q6 PRN PRN Reason: Pain, moderate (4-7) Last Admin: 02/05/17 20:52 Dose: 650 mg Clopidogrel Bisulfate (Plavix) 75 mg PO DAILY [facility] Last Admin: 02/07/17 12:41 Dose: Not Given Famotidine (Pepcid) 20 mg IVP DAILY [facility] Last Admin: 02/07/17 12:43 Dose: 20 mg Heparin Sodium/Sodium Chloride (Heparin 54413 Units/250ml 1/2 Normal Saline) 25 ,000 units in 250 mls @ 15.24 mls/hr IV .[id number] PRN; Protocol; 12 UNITS/KG/HR PRN Reason: PROTOCOL Last Admin: 02/06/17 15:51 Dose: 14 units/kg/hr, 17.78 mls/hr Piperacillin Sod/Tazobactam (Sod 2.25 gm/ Sodium Chloride) 100 mls @ 200 mls/ hr IVPB Q6 [facility] Last Admin: 02/07/17 12:43 Dose: 200 mls/hr Sodium Chloride (Sodium Chloride 0.9%) 1,000 mls @ 100 mls/hr IV .Q10H [facility] Last Admin: 02/07/17 12:44 Dose: 100 mls/hr Insulin Human Regular (Novolin R) 0 unit SC ACHS [facility] PRN Reason: Protocol Last Admin: 02/07/17 12:40 Dose: 3 unit Metoprolol Tartrate (Lopressor) 20 mg IVP Q6H [facility] Rosuvastatin Calcium (Crestor) 20 mg PO HS [facility] Last Admin: 02/06/17 21:12 Dose: 20 mg Zolpidem Tartrate (Ambien) 5 mg PO HS PRN PRN Reason: Insomnia Stop: 02/07/17 20:49 Last Admin: 02/06/17 21:12 Dose: 5 mg Physical Exam - Constitutional Additional comments: Appears to be having trouble with breathing and is somewhat in distress - Head Exam Head Exam: ATRAUMATIC, NORMAL INSPECTION - Eye Exam Eye Exam: EOMI, PERRL - ENT Exam ENT Exam: Mucous Membranes Moist - Neck Exam Neck exam: Positive for: Normal Inspection - Respiratory Exam Respiratory Exam: Rales, Wheezes, Respiratory Distress - Cardiovascular Exam Cardiovascular Exam: REGULAR RHYTHM, +S1, +S2 - GI/Abdominal Exam GI & Abdominal Exam: Soft - Rectal Exam Rectal Exam: Deferred - Extremities Exam Extremities exam: Positive for: normal inspection - Back Exam Back exam: NORMAL INSPECTION - Neurological Exam Neurological exam: Alert, CN II-XII Intact, Oriented x3 Additional comments: Right upper extremity is full in strength, Left upper extremity is 4/5 proximally and 3/5 distally, Both lower extremities are 2/5 in strength. Sensation is intact throughout, there is a partial right gaze preference and some left side neglect. NIHSS = 10 Results - Vital Signs Recent Vital Signs: Last Vital Signs Temp 98.4 F 02/07/17 12:00 Pulse 97 H 02/07/17 14:00 Resp 25 H 02/07/17 14:00 BP 198/98 H 02/07/17 13:54 Pulse Ox 99 02/07/17 14:00 - Labs Result Diagrams: 02/07/17 04:50 02/07/17 04:50 Labs: Laboratory Results - last 24 hr 02/06/17 02/06/17 02/06/17 16:12 17:19 21:13 WBC RBC Hgb Hct MCV MCH MCHC RDW Plt Count MPV Neut % (Auto) Lymph % (Auto) [place]k % (Auto) Eos % (Auto) Baso % (Auto) Neut # Lymph # Elk # Eos # Baso # Neutrophils % (Manual) Lymphocytes % (Manual) Monocytes % (Manual) Platelet Estimate Poikilocytosis (manual Anisocytosis (manual) PT INR APTT Sodium 143 Potassium 3.6 Chloride 104 Carbon Dioxide 25 Anion Gap 18 BUN 34 H Creatinine 1.8 H Est GFR ( Amer) 45 Est GFR (Non-Af Amer) 37 POC Glucose (mg/dL) 264 H 305 H Random Glucose 239 H Calcium 8.9 Phosphorus Magnesium Total Bilirubin AST ALT Alkaline Phosphatase Total Protein Albumin Globulin Albumin/Globulin Ratio 02/07/17 02/07/17 02/07/17 04:50 04:50 04:50 WBC 10.8 RBC 3.33 L Hgb 9.6 L Hct 29.0 L MCV 87.1 MCH 28.9 MCHC 33.2 RDW 14.3 Plt Count 273 MPV 7.9 Neut % (Auto) 81.5 H Lymph % (Auto) 7.6 L Elk % (Auto) 9.7 Eos % (Auto) 0.8 Baso % (Auto) 0.4 Neut # 8.8 H Lymph # 0.8 L [place]k # 1.1 H Eos # 0.1 Baso # 0.0 Neutrophils % (Manual) 82 H Lymphocytes % (Manual) 8 L Monocytes % (Manual) 10 Platelet Estimate Normal Poikilocytosis (manual Slight Anisocytosis (manual) Slight PT 14.4 H INR 1.3 APTT 78 H D Sodium 144 Potassium 3.5 L Chloride 105 Carbon Dioxide 25 Anion Gap 18 BUN 28 H Creatinine 1.7 H Est GFR ( Amer) 48 Est GFR (Non-Af Amer) 40 POC Glucose (mg/dL) Random Glucose 253 H Calcium 9.1 Phosphorus 2.8 Magnesium 1.6 Total Bilirubin 0.6 AST 25 ALT 34 Alkaline Phosphatase 71 Total Protein 7.6 Albumin 3.0 L Globulin 4.6 H Albumin/Globulin Ratio 0.7 L - Imaging and Cardiology CT scan - head Status: Image reviewed by me, Report reviewed by me (Subacute to chronic appearing right MCA region ischemic strokes with relatively diffuse white matter disease. ) Assessment & Plan (1) Acute CVA (cerebrovascular accident) Assessment and Plan: The worsening left side weakness and neglect may be due to new right frontal/ parietal ischemic strokes, or could be due to regression of previous stroke symptoms in his decompensated state. However, he currently has NSTEMI and several other co-morbid medical conditions. I recommend the followin. ICU admission and close observation 2. Q1 hour neuro-checks 3. [place] to evaluate for cardiac thrombus 4. Start heparin drip for moderate anticoagulation and no bolus 5. MRI of the brain without contrast and MRA of the head/neck without contrast 6. Permissive hypertension, treat BP greater than 185/105 mm Hg 7. Avoid opiates, if possible. Try IV Tylenol for pain, if possible. 8. PT/OT eval and treat 9. Treat underlying pulmonary edema (consider albumin-lasix) 10. Case management consult Thank you. Status: Acute Priority: High
[2017-02-07] MEDS ORDERED: Acetaminophen IV 1,000 MG in Premixed IV 1 EA IV PRN (15:44)
[2017-02-07] MEDS ORDERED: Metoprolol 1 mg/ml Inj IVP SCH (16:07)
--- NOTE | 2017-02-07 16:16 | RAD ---
PROCEDURE: CHEST RADIOGRAPH, 1 VIEW HISTORY: chf COMPARISON: Portable chest 02/02/2017. FINDINGS: LUNGS: Patient appears to been extubated with right PICC catheter unchanged in position. Trace airspace disease not excluded the right infrahilar space swells at the left base posterior to the left heart. No definite suspicious additional interval findings. PLEURA: No pneumothorax or pleural fluid seen. CARDIOVASCULAR: Cardiomediastinal silhouette appears stable exclusive of the endotracheal tube. OSSEOUS STRUCTURES: No significant abnormalities. VISUALIZED UPPER ABDOMEN: Normal. OTHER FINDINGS: None. IMPRESSION: Borderline and right infrahilar and left basilar retrocardiac airspace disease. Prior extubation is suggested. Exam otherwise stable in the interval.
[2017-02-07] MEDS: Heparin25000 units/250ml 1/2NS 25,000 UNITS/250 ML BAG IV PRN (16:33)
--- NOTE | 2017-02-07 16:47 | CP.PCM.PN ---
Subjective - Date & Time of Evaluation Date of Evaluation: 02/07/17 Time of Evaluation: 07:20 - Subjective Subjective: Ai Williamson DO PGY1 - Cardiology Progress Note for Dr. Jaimes Patient initially seen and examined at bedside this AM at [facility], where he was initially transferred for PCI. At that time, he was noted to be lethargic, altered, responding inappropriately to questions, and complaining of a headache; had some LUE weakness and right sided facial droop. Stat head CT was ordered to r/o CVA and cardiac cath was postponed. There, he was evaluated for ICU admission, but was stable, and head CT did not show hemorrhage, so he was transferred back to [facility]. He was also seen by Dr. Marquis Dunbar while at [place], who suggested that patient likely had multiple embolic strokes, and would warrant further neurological workup after transfer to [facility]; he agreed that the patient was stable enough to be transferred back. Patient is now back in [facility] ICU. His mentation has improved slightly. Patient is speaking in single-word phrases, mumbling the words; complaining of left sided weakness, hunger, and 8/10 right foot pain. He denies any chest pain. He admits to SOB, and is noted to be breathing rapidly, using accessory muscles. Objective - Vital Signs/Intake and Output Vital Signs (last 24 hours): Temp Pulse Resp BP Pulse Ox 98.4 F 87 20 193/105 H 98 02/07/17 12:00 02/07/17 16:00 02/07/17 15:00 02/07/17 16:03 02/07/17 15:00 Intake and Output: 02/07/17 02/07/17 06:59 18:59 Intake Total 1663.5 300 Output Total 1150 50 Balance 513.5 250 - Medications Medications: Current Medications Clopidogrel Bisulfate (Plavix) 75 mg PO DAILY [facility] Last Admin: 02/07/17 12:41 Dose: Not Given Famotidine (Pepcid) 20 mg IVP DAILY [facility] Last Admin: 02/07/17 12:43 Dose: 20 mg Heparin Sodium/Sodium Chloride (Heparin 76049 Units/250ml 1/2 Normal Saline) 25 ,000 units in 250 mls @ 15.24 mls/hr IV .[id number] PRN; Protocol; 12 UNITS/KG/HR PRN Reason: PROTOCOL Last Admin: 02/07/17 16:33 Dose: 14 units/kg/hr, 17.78 mls/hr Piperacillin Sod/Tazobactam (Sod 2.25 gm/ Sodium Chloride) 100 mls @ 200 mls/ hr IVPB Q6 [facility] Last Admin: 02/07/17 12:43 Dose: 200 mls/hr Sodium Chloride (Sodium Chloride 0.9%) 1,000 mls @ 100 mls/hr IV .Q10H [facility] Last Admin: 02/07/17 15:36 Dose: Not Given Acetaminophen 1,000 mg/ (Miscellaneous) 100 mls @ 400 mls/hr IV Q6 PRN PRN Reason: Pain, moderate (4-7) Stop: 02/08/17 15:45 Insulin Human Regular (Novolin R) 0 unit SC ACHS [facility] PRN Reason: Protocol Last Admin: 02/07/17 12:40 Dose: 3 unit Metoprolol Tartrate (Lopressor) 20 mg IVP Q6H [facility] Morphine Sulfate (Morphine) 1 mg IVP Q4 PRN PRN Reason: Pain, severe (8-10) Rosuvastatin Calcium (Crestor) 20 mg PO HS [facility] Last Admin: 02/06/17 21:12 Dose: 20 mg Zolpidem Tartrate (Ambien) 5 mg PO HS PRN PRN Reason: Insomnia Stop: 02/07/17 20:49 Last Admin: 02/06/17 21:12 Dose: 5 mg - Labs Labs: 02/07/17 04:50 02/07/17 04:50 PT 14.4 SECONDS (9.7-12.2) H 02/07/17 04:50 INR 1.3 02/07/17 04:50 APTT 78 SECONDS (21-34) H D 02/07/17 04:50 - Constitutional Appears: In Acute Distress, Confused, Chronically Ill - Head Exam Head Exam: ATRAUMATIC, NORMOCEPHALIC - Eye Exam Eye Exam: EOMI, Normal appearance - ENT Exam ENT Exam: Mucous Membranes Dry - Neck Exam Neck Exam: Normal Inspection - Respiratory Exam Respiratory Exam: Wheezes, Respiratory Distress - Cardiovascular Exam Cardiovascular Exam: RRR, +S1, +S2 - Extremities Exam Extremities Exam: Pedal Edema Additional comments: Right great toe s/p amputation, dressing in place; dressing clean and dry Trace pitting edema b/l to mid siu - Neurological Exam Neurological Exam: Alert, Awake Neuro motor strength exam: Left Upper Extremity: 4, Right Upper Extremity: 5, Left Lower Extremity: 2/1, Right Lower Extremity: 2/1 Additional comments: Oriented x1 Left sided neglect - Psychiatric Exam Psychiatric exam: Flat Affect - Skin Skin Exam: Dry, Intact Assessment and Plan (1) NSTEMI (non-ST elevated myocardial infarction) Assessment & Plan: LHCx was scheduled this morning, but postponed because patient had a stroke Plan to do LHCx when patient is more stable Continue heparin drip, BB, ASA, Plavix, Statin Repeat echo normal LVEF, no regional wall motion abnormalities Status: Acute (2) Acute CVA (cerebrovascular accident) Assessment & Plan: Patient noted to have altered mentation this morning, with focal neurological signs Patient has history of multiple CVA in the past Patient was seen by Dr. Marquis Dunbar at [place], and now being seen by Dr. Jackson Arevalo at [facility]; appreciate recs Restarting heparin drip without bolus BP goal as above Further workup and management per Dr. Arevalo and ICU team Status: Acute (3) CAD (coronary artery disease) Status: Acute (4) Osteomyelitis Assessment & Plan: Patient initially presented with R great toe osteomyelitis, now s/p amputation Podiatry following Status: Acute (5) Dyslipidemia Assessment & Plan: Continue statin; though patient is currently NPO, so has not been getting statin ; patient refuses NG tube Status: Chronic (6) HTN (hypertension) Assessment & Plan: BP remains elevated; patient had CVA, no bleed noted on CT head BP goal SBP<185 and DBP<105 per neurology Patient is currently NPO, switched Metoprolol 100mg PO BID to 20mg IV Q6 Continue to monitor BP and titrate medications as needed Status: Chronic (7) Diabetes mellitus Assessment & Plan: Stable Management per primary team Maintain euglycemia Status: Chronic (8) Acute kidney injury Assessment & Plan: Improving IVF held by ICU team because of respiratory distress and pulmonary edema Recheck with AM labs Status: Acute (9) Cardiogenic pulmonary edema Assessment & Plan: Patient noted to be in respiratory distress; tachypneic, abdominal breathing, complaining of shortness of breath Stat CXR shows significant pulmonary vascular congestion ABG ordered and started on BIPAP per ICU team Given Lasix 20mg IV once; will reassess and consider diuresing further if inadequate UO BNP ordered, pending Further workup and management per ICU team Status: Acute
--- NOTE | 2017-02-07 17:56 | CP.PCM.PN ---
Subjective - Date & Time of Evaluation Date of Evaluation: 02/07/17 Time of Evaluation: 08:00 - Subjective Subjective: events noted possible new cva responsive weak lethargic nad Objective - Vital Signs/Intake and Output Vital Signs (last 24 hours): Temp Pulse Resp BP Pulse Ox 98.8 F 94 H 14 196/97 H 99 02/07/17 16:00 02/07/17 17:23 02/07/17 17:23 02/07/17 17:23 02/07/17 17:23 Intake and Output: 02/07/17 02/07/17 06:59 18:59 Intake Total 1663.5 300 Output Total 1150 50 Balance 513.5 250 - Medications Medications: Current Medications Acetaminophen (Tylenol 650 Mg Supp) 650 mg GA Q6 PRN PRN Reason: Pain, moderate (4-7) Clopidogrel Bisulfate (Plavix) 75 mg PO DAILY [facility] Last Admin: 02/07/17 12:41 Dose: Not Given Famotidine (Pepcid) 20 mg IVP DAILY [facility] Last Admin: 02/07/17 12:43 Dose: 20 mg Heparin Sodium/Sodium Chloride (Heparin 41611 Units/250ml 1/2 Normal Saline) 25 ,000 units in 250 mls @ 15.24 mls/hr IV .[id number] PRN; Protocol; 12 UNITS/KG/HR PRN Reason: PROTOCOL Last Admin: 02/07/17 16:33 Dose: 14 units/kg/hr, 17.78 mls/hr Piperacillin Sod/Tazobactam (Sod 2.25 gm/ Sodium Chloride) 100 mls @ 200 mls/ hr IVPB Q6 [facility] Last Admin: 02/07/17 12:43 Dose: 200 mls/hr Sodium Chloride (Sodium Chloride 0.9%) 1,000 mls @ 100 mls/hr IV .Q10H [facility] Last Admin: 02/07/17 15:36 Dose: Not Given Acetaminophen 1,000 mg/ (Miscellaneous) 100 mls @ 400 mls/hr IV Q6 PRN PRN Reason: Pain, moderate (4-7) Stop: 02/08/17 15:45 Insulin Human Regular (Novolin R) 0 unit SC ACHS [facility] PRN Reason: Protocol Last Admin: 02/07/17 17:10 Dose: 4 unit Metoprolol Tartrate (Lopressor) 20 mg IVP Q6H [facility] Morphine Sulfate (Morphine) 1 mg IVP Q4 PRN PRN Reason: Pain, severe (8-10) Rosuvastatin Calcium (Crestor) 20 mg PO HS [facility] Last Admin: 02/06/17 21:12 Dose: 20 mg Zolpidem Tartrate (Ambien) 5 mg PO HS PRN PRN Reason: Insomnia Stop: 02/07/17 20:49 Last Admin: 02/06/17 21:12 Dose: 5 mg - Labs Labs: 02/07/17 04:50 02/07/17 04:50 PT 14.4 SECONDS (9.7-12.2) H 02/07/17 04:50 INR 1.3 02/07/17 04:50 APTT 78 SECONDS (21-34) H D 02/07/17 04:50 - Constitutional Appears: Non-toxic - Head Exam Head Exam: NORMOCEPHALIC - Eye Exam Eye Exam: PERRL - ENT Exam ENT Exam: Mucous Membranes Dry - Neck Exam Neck Exam: absent: Lymphadenopathy - Respiratory Exam Respiratory Exam: Decreased Breath Sounds - Cardiovascular Exam Cardiovascular Exam: REGULAR RHYTHM, +S1, +S2 - GI/Abdominal Exam GI & Abdominal Exam: Distended, Soft - Rectal Exam Rectal Exam: Deferred - Back Exam Back Exam: absent: CVA tenderness (L), CVA tenderness (R) - Neurological Exam Neurological Exam: Alert, Awake Neuro motor strength exam: Left Upper Extremity: 3, Right Upper Extremity: 5, Left Lower Extremity: 3, Right Lower Extremity: 5 - Psychiatric Exam Psychiatric exam: Depressed - Skin Skin Exam: Dry Assessment and Plan (1) Cellulitis Status: Acute (2) Osteomyelitis Status: Acute (3) Toe gangrene Status: Acute (4) Abscess of great toe Status: Acute (5) Diabetes mellitus Status: Chronic - Assessment and Plan (Free Text) Assessment: possible cva, NSTEMI, s/p right toe gangrene / OM amputation neuro work up in progress no new positive cultures all blood cultures have been negative
[2017-02-07] MEDS ORDERED: Metoprolol 1 mg/ml Inj IVP ONE ×2 (19:08→19:15)
--- NOTE | 2017-02-07 19:14 | CP.CCUPN ---
<[place] carrlivanyung E - Last Filed: 02/07/17 19:04> CCU Subjective - Physician Review Subjective (Free Text): Patient was seen and examined at bedside after returning from [facility] for a cardiac catherization as planned. Patient was unable to receive cardiac catherization due to observation of incomprehensible speech, confusion and right sided facial droop. Patient then had a head CT done at [place] which showed no intracranial hemorrhage. 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 During patient encounter , patient was able to answer correctly regarding his location, how many children he has and was able to identify his , who was at bedside. Patient complained of hunger and mild headache but denies chest chest pain. Furthermore , patient was noted to be tachypneic, therefore he was placed on BiPAP with stat chest x-ray showing: Borderline and right infrahilar and left basilar retrocardiac airspace disease. 1 CCU Objective - Vital Signs / Intake & Output Vital Signs (Last 4 hours): Vital Signs Temp Pulse Resp BP Pulse Ox 02/07/17 17:23 94 H 14 196/97 H 99 02/07/17 17:20 97 H 22 206/103 H 100 02/07/17 17:00 92 H 27 H 99 02/07/17 16:54 96 H 28 H 199/97 H 94 L 02/07/17 16:51 95 H 16 198/93 H 94 L 02/07/17 16:43 96 H 15 187/101 H 100 02/07/17 16:26 85 17 229/105 H 100 02/07/17 16:23 85 19 224/108 H 100 02/07/17 16:03 193/105 H 02/07/17 16:00 98.8 F 87 17 100 02/07/17 15:56 94 H 19 193/105 H 97 02/07/17 15:54 90 18 209/100 H 98 02/07/17 15:41 88 16 212/97 H 98 02/07/17 15:35 88 33 H 211/100 H 98 Intake and Output (Last 8hrs): Intake & Output 02/07/17 02/07/17 02/07/17 06:59 14:59 22:59 Intake Total 1192.4 200 100 Output Total 700 50 Balance 492.4 150 100 Intake: IV 250 Intake, IV Amount 942.4 200 100 Left Forearm 142.4 Right PICC 800 200 100 Oral 0 0 Output: Urine 700 50 Condom 50 Urethral (Carr) 500 Urine, Voided 200 - Physical Exam Head: Positive for: Atraumatic, Normocephalic Pupils: Negative for: PERRL Extroacular Muscles: Positive for: EOMI Respiratory/Chest: Positive for: Clear to Auscultation, Wheezes (Mild wheezing ) Cardiovascular: Positive for: Regular Rate and Rhythm, Normal S1, S2 Abdomen: Positive for: Distention, Normal Bowel Sounds. Negative for: Tenderness Lower Extremity: Positive for: Other (right toe hallux dressing C/D/I) Skin: Positive for: Warm, Normal Color Psychiatric: Positive for: Alert, Oriented x 3 - Medications Active Medications: Active Medications Generic Name Dose Route Start Last Admin Trade Name Freq PRN Reason Stop Dose Admin Acetaminophen 650 mg 02/07/17 17:27 Tylenol 650 Mg Supp NM Q6 PRN Pain, moderate (4-7) Clopidogrel Bisulfate 75 mg 02/02/17 10:00 02/07/17 12:41 Plavix PO Not Given DAILY RORO Famotidine 20 mg 02/02/17 10:00 02/07/17 12:43 Pepcid IVP 20 mg DAILY RORO Administration Heparin Sodium/Sodium Chloride 25,000 units in 250 mls @ 15.24 mls/hr 16:00 02/07/17 16:33 Heparin 36769 Units/250ml 1/2 Normal Saline IV 14 units/kg/hr .[id number] PRN 17.78 mls/hr PROTOCOL Administration Protocol 12 UNITS/KG/HR Piperacillin Sod/Tazobactam 100 mls @ 200 mls/hr 02/02/17 12:00 02/07/17 18: 16 Sod 2.25 gm/ Sodium Chloride IVPB 200 mls/hr Q6 RORO Administration Sodium Chloride 1,000 mls @ 100 mls/hr 02/06/17 09:30 02/07/17 15:36 Sodium Chloride 0.9% IV Not Given .Q10H RORO Acetaminophen 1,000 mg/ 100 mls @ 400 mls/hr 02/07/17 15:44 02/07/17 18:14 Miscellaneous IV 02/08/17 15:45 400 mls/hr Q6 PRN Administration Pain, moderate (4-7) Nitroglycerin/Dextrose 50 mg in 250 mls @ 7.5 mls/hr 02/07/17 19:00 Nitroglycerin 50 Mg/250 Ml D5w IV .Q24H RORO Protocol 25 MCG/MIN Insulin Human Regular 0 unit 02/04/17 13:15 02/07/17 17:10 Novolin R SC 4 unit ACHS RORO Administration Protocol Metoprolol Tartrate 20 mg 02/07/17 16:07 Lopressor IVP Q6H RORO Metoprolol Tartrate 5 mg 02/07/17 19:03 Lopressor IVP 02/07/17 19:04 STAT STA Morphine Sulfate 1 mg 02/07/17 15:55 Morphine IVP Q4 PRN Pain, severe (8-10) Rosuvastatin Calcium 20 mg 02/06/17 22:00 02/06/17 21:12 Crestor PO 20 mg HS RORO Administration Zolpidem Tartrate 5 mg 02/06/17 20:48 02/06/17 21:12 Ambien PO 02/07/17 20:49 5 mg HS PRN Administration Insomnia - Patient Studies Lab Studies: Lab Studies 02/07/17 02/07/17 02/07/17 Range/Units 16:29 04:50 04:50 WBC (4.8-10.8) K/uL RBC (4.40-5.90) Mil/uL Hgb (12.0-18.0) g/dL Hct (35.0-51.0) % MCV (80.0-94.0) fL MCH (27.0-31.0) pg MCHC (33.0-37.0) g/dL RDW (11.5-14.5) % Plt Count (130-400) K/uL MPV (7.2-11.7) fL Neut % (Auto) (50.0-75.0) % Lymph % (Auto) (20.0-40.0) % Lane % (Auto) (0.0-10.0) % Eos % (Auto) (0.0-4.0) % Baso % (Auto) (0.0-2.0) % Neut # (1.8-7.0) K/uL Lymph # (1.0-4.3) K/uL Lane # (0.0-0.8) K/uL Eos # (0.0-0.7) K/uL Baso # (0.0-0.2) K/uL Neutrophils % (Manual) (50-75) % Lymphocytes % (Manual) (20-40) % Monocytes % (Manual) (0-10) % Platelet Estimate (NORMAL) Poikilocytosis (manual Anisocytosis (manual) PT 14.4 H (9.7-12.2) SECONDS INR 1.3 APTT 78 H D (21-34) SECONDS Sodium 144 (132-148) mmol/L Potassium 3.5 L (3.6-5.2) mmol/L Chloride 105 (98-107) mmol/L Carbon Dioxide 25 (22-30) mmol/L Anion Gap 18 (10-20) BUN 28 H (9-20) mg/dL Creatinine 1.7 H (0.8-1.5) mg/dL Est GFR ( Amer) 48 Est GFR (Non-Af Amer) 40 POC Glucose (mg/dL) 284 H (65-110) mg/dL Random Glucose 253 H (75-110) mg/dL Calcium 9.1 (8.6-10.4) mg/dl Phosphorus 2.8 (2.5-4.5) mg/dL Magnesium 1.6 (1.6-2.3) mg/dL Total Bilirubin 0.6 (0.2-1.3) mg/dL AST 25 (17-59) U/L ALT 34 (21-72) U/L Alkaline Phosphatase 71 (38-126) U/L Total Protein 7.6 (6.3-8.3) g/dL Albumin 3.0 L (3.5-5.0) g/dL Globulin 4.6 H (2.2-3.9) gm/dL Albumin/Globulin Ratio 0.7 L (1.0-2.1) 02/07/17 02/06/17 Range/Units 04:50 21:13 WBC 10.8 (4.8-10.8) K/uL RBC 3.33 L (4.40-5.90) Mil/uL Hgb 9.6 L (12.0-18.0) g/dL Hct 29.0 L (35.0-51.0) % MCV 87.1 (80.0-94.0) fL MCH 28.9 (27.0-31.0) pg MCHC 33.2 (33.0-37.0) g/dL RDW 14.3 (11.5-14.5) % Plt Count 273 (130-400) K/uL MPV 7.9 (7.2-11.7) fL Neut % (Auto) 81.5 H (50.0-75.0) % Lymph % (Auto) 7.6 L (20.0-40.0) % Lane % (Auto) 9.7 (0.0-10.0) % Eos % (Auto) 0.8 (0.0-4.0) % Baso % (Auto) 0.4 (0.0-2.0) % Neut # 8.8 H (1.8-7.0) K/uL Lymph # 0.8 L (1.0-4.3) K/uL Lane # 1.1 H (0.0-0.8) K/uL Eos # 0.1 (0.0-0.7) K/uL Baso # 0.0 (0.0-0.2) K/uL Neutrophils % (Manual) 82 H (50-75) % Lymphocytes % (Manual) 8 L (20-40) % Monocytes % (Manual) 10 (0-10) % Platelet Estimate Normal (NORMAL) Poikilocytosis (manual Slight Anisocytosis (manual) Slight PT (9.7-12.2) SECONDS INR APTT (21-34) SECONDS Sodium (132-148) mmol/L Potassium (3.6-5.2) mmol/L Chloride (98-107) mmol/L Carbon Dioxide (22-30) mmol/L Anion Gap (10-20) BUN (9-20) mg/dL Creatinine (0.8-1.5) mg/dL Est GFR ( Amer) Est GFR (Non-Af Amer) POC Glucose (mg/dL) 305 H (65-110) mg/dL Random Glucose (75-110) mg/dL Calcium (8.6-10.4) mg/dl Phosphorus (2.5-4.5) mg/dL Magnesium (1.6-2.3) mg/dL Total Bilirubin (0.2-1.3) mg/dL AST (17-59) U/L ALT (21-72) U/L Alkaline Phosphatase (38-126) U/L Total Protein (6.3-8.3) g/dL Albumin (3.5-5.0) g/dL Globulin (2.2-3.9) gm/dL Albumin/Globulin Ratio (1.0-2.1) Laboratory Results - last 24 hr 02/06/17 02/07/17 02/07/17 21:13 04:50 04:50 WBC 10.8 RBC 3.33 L Hgb 9.6 L Hct 29.0 L MCV 87.1 MCH 28.9 MCHC 33.2 RDW 14.3 Plt Count 273 MPV 7.9 Neut % (Auto) 81.5 H Lymph % (Auto) 7.[address] % (Auto) 9.7 Eos % (Auto) 0.8 Baso % (Auto) 0.4 Neut # 8.8 H Lymph # 0.[address] # 1.1 H Eos # 0.1 Baso # 0.0 Neutrophils % (Manual) 82 H Lymphocytes % (Manual) 8 L Monocytes % (Manual) 10 Platelet Estimate Normal Poikilocytosis (manual Slight Anisocytosis (manual) Slight PT INR APTT Sodium 144 Potassium 3.5 L Chloride 105 Carbon Dioxide 25 Anion Gap 18 BUN 28 H Creatinine 1.7 H Est GFR ( Amer) 48 Est GFR (Non-Af Amer) 40 POC Glucose (mg/dL) 305 H Random Glucose 253 H Calcium 9.1 Phosphorus 2.8 Magnesium 1.6 Total Bilirubin 0.6 AST 25 ALT 34 Alkaline Phosphatase 71 Total Protein 7.6 Albumin 3.0 L Globulin 4.6 H Albumin/Globulin Ratio 0.7 L 02/07/17 02/07/17 04:50 16:29 WBC RBC Hgb Hct MCV MCH MCHC RDW Plt Count MPV Neut % (Auto) Lymph % (Auto) Lane % (Auto) Eos % (Auto) Baso % (Auto) Neut # Lymph # Lane # Eos # Baso # Neutrophils % (Manual) Lymphocytes % (Manual) Monocytes % (Manual) Platelet Estimate Poikilocytosis (manual Anisocytosis (manual) PT 14.4 H INR 1.3 APTT 78 H D Sodium Potassium Chloride Carbon Dioxide Anion Gap BUN Creatinine Est GFR ( Amer) Est GFR (Non-Af Amer) POC Glucose (mg/dL) 284 H Random Glucose Calcium Phosphorus Magnesium Total Bilirubin AST ALT Alkaline Phosphatase Total Protein Albumin Globulin Albumin/Globulin Ratio Fingerstick Blood Sugar Results: 284 Review of Systems - Constitutional Constitutional: Weakness. absent: Fever, Chills, Sweats - EENT Eyes: absent: Blurred Vision, Change in Vision Ears: absent: Dizziness - Cardiovascular Cardiovascular: Dyspnea. absent: Chest Pain, Diaphoresis, Lightheadedness, Palpitations - Respiratory Respiratory: Dyspnea. absent: Pain on Inspiration - Gastrointestinal Gastrointestinal: absent: Abdominal Pain, Nausea, Vomiting - Musculoskeletal Musculoskeletal: absent: Numbness, Tingling - Endocrine Endocrine: Fatigue. absent: Palpitations Critical Care Progress Note - Nutrition Nutrition: Nutrition Category Date Time Status NPO Diet [DIET] Diets 02/04/17 Breakfast Active Assessment/Plan - Assessment and Plan (Free Text) Assessment: 71 year old male with past medical history DM, arthritis, HTN, chronic lower extremity edema, s/p Right Hallux partial amputation POD# 5, with SILK SOAKER on for respiratory distress therefore patient was intubated. Patient was extubated on 02/02/17 Today: * Noted to have a stroke at [facility] * Increased respiratory rate with stat chest x-ray showing vascular congestion Plan: Cardio: Elevated Troponins (27.7--->20.6---> 17.800)NSTEMI and Hx of HTN Cardio, Dr. Jaimes on board * As per cardiology, after hemodynamically stability is achieve with improving renal function, anticipate cardiac catherization * Echocardiogram: LV function is normal and EF is within normal range Medications: Lopressor 5mg IV Q6H Cozaar 50mg PO daily Aspirin 325mg PO daily Plavix 300mg PO once, loading dose. Plavix 75mg PO daily Crestor 20mg PO HS Nitroglycerin 50mg in 250Ml @ 25mcg/min Pulm: Vascular congestion as per chest X-ray * Lasix 20mg IVP stat * Reduce rate of IVF fluids (NS @100mls/hr--> 75mls/hr * Placed on Bipap (02/07/17) Endo: Accuchecks ISS medium dose protocol Continue to monitor Renal: Elevated BUN/Cr Management: Fluid resuscitation * NS @100mls/hr HEME: H/H: Stable, * Transfused 1 unit of PRBC (02/02/17) Neuro: Extubated, alert, oriented and responsive to verbal stimuli. ID: Gram negative LEE culture right hallux ( 01/31/17) Medication: Zosyn 3.375gm IV Q6H MSK: s/p right hallux partial amputation POD#6 * Morphine 1mg IV Q4 prn for pain control Prophylaxis: DVT: Heparin drip GI: Pepcid 20mg IV daily Tylenol 650mg NM Q6 PRN Out of bed to chair Aspiration precaution <Charles Herrmann M - Last Filed: 02/11/17 08:53> CCU Objective - Vital Signs / Intake & Output Vital Signs (Last 4 hours): Vital Signs Temp Pulse Resp BP Pulse Ox 02/11/17 08:31 85 164/89 H 02/11/17 07:37 98.6 F 62 20 172/68 H 97 Intake and Output (Last 8hrs): Intake & Output 02/10/17 02/11/17 02/11/17 22:59 06:59 14:59 Intake Total 970 250 Balance 970 250 Intake: IV 250 Intake, IV Amount 370 Right Upper arm 370 Oral 600 - Medications Active Medications: Active Medications Generic Name Dose Route Start Last Admin Trade Name Freq PRN Reason Stop Dose Admin Clopidogrel Bisulfate 75 mg 02/02/17 10:00 02/10/17 09:25 Plavix PO 75 mg DAILY RORO Administration Famotidine 20 mg 02/02/17 10:00 02/10/17 09:25 Pepcid IVP 20 mg DAILY RORO Administration Furosemide 40 mg 02/09/17 10:00 02/10/17 22:48 Lasix IVP 40 mg Q12 RORO Administration Piperacillin Sod/Tazobactam 100 mls @ 200 mls/hr 02/02/17 12:00 02/11/17 06: 35 Sod 2.25 gm/ Sodium Chloride IVPB 200 mls/hr Q6 RORO Administration Heparin Sodium/Sodium Chloride 25,000 units in 250 mls @ 12.7 mls/hr 02/10/17 15:23 02/11/17 01:04 Heparin 65010 Units/250ml 1/2 Normal Saline IV 10 units/kg/hr .[id number] PRN 12.7 mls/hr PROTOCOL Administration Protocol 10 UNITS/KG/HR Insulin Human Regular 0 unit 02/04/17 13:15 02/11/17 08:31 Novolin R SC 6 unit ACHS RORO Administration Protocol Metoprolol Tartrate 50 mg 02/09/17 09:45 02/11/17 08:32 Lopressor PO 50 mg BRK RORO Administration Metoprolol Tartrate 50 mg 02/09/17 10:15 Lopressor PO DIN RORO Potassium Chloride 20 meq 02/10/17 13:54 Potassium Chloride Oral Soln PO DAILY RORO Rosuvastatin Calcium 40 mg 02/08/17 22:00 02/10/17 22:47 Crestor PO 40 mg HS RORO Administration - Patient Studies Lab Studies: Microbiology Studies 02/09/17 05:43 MRSA Culture - Final Nose MRSA NOT DETECTED Lab Studies 02/11/17 02/11/17 02/11/17 Range/Units 07:14 07:14 07:14 WBC 8.5 (4.8-10.8) K/uL RBC 3.54 L (4.40-5.90) Mil/uL Hgb 10.1 L (12.0-18.0) g/dL Hct 30.7 L (35.0-51.0) % MCV 86.6 (80.0-94.0) fL MCH 28.4 (27.0-31.0) pg MCHC 32.8 L (33.0-37.0) g/dL RDW 14.1 (11.5-14.5) % Plt Count 264 (130-400) K/uL MPV 8.8 (7.2-11.7) fL Neut % (Auto) 63.5 (50.0-75.0) % Lymph % (Auto) 19.7 L (20.0-40.0) % Lane % (Auto) 11.3 H (0.0-10.0) % Eos % (Auto) 5.1 H (0.0-4.0) % Baso % (Auto) 0.4 (0.0-2.0) % Neut # 5.4 (1.8-7.0) K/uL Lymph # 1.7 (1.0-4.3) K/uL Lane # 1.0 H (0.0-0.8) K/uL Eos # 0.4 (0.0-0.7) K/uL Baso # 0.0 (0.0-0.2) K/uL PT 13.1 H (9.7-12.2) SECONDS INR 1.2 APTT (21-34) SECONDS Sodium 136 (132-148) mmol/L Potassium 2.9 L (3.6-5.2) mmol/L Chloride 95 L (98-107) mmol/L Carbon Dioxide 29 (22-30) mmol/L Anion Gap 15 (10-20) BUN 26 H (9-20) mg/dL Creatinine 2.0 H (0.8-1.5) mg/dL Est GFR ( Amer) 40 Est GFR (Non-Af Amer) 33 POC Glucose (mg/dL) (65-110) mg/dL Random Glucose 258 H (75-110) mg/dL Calcium 8.9 (8.6-10.4) mg/dl Total Bilirubin 0.5 (0.2-1.3) mg/dL AST 23 (17-59) U/L ALT 29 (21-72) U/L Alkaline Phosphatase 76 (38-126) U/L Total Protein 7.2 (6.3-8.3) g/dL Albumin 3.0 L (3.5-5.0) g/dL Globulin 4.2 H (2.2-3.9) gm/dL Albumin/Globulin Ratio 0.7 L (1.0-2.1) 02/11/17 02/11/17 02/11/17 Range/Units 06:37 02:50 02:03 WBC (4.8-10.8) K/uL RBC (4.40-5.90) Mil/uL Hgb (12.0-18.0) g/dL Hct (35.0-51.0) % MCV (80.0-94.0) fL MCH (27.0-31.0) pg MCHC (33.0-37.0) g/dL RDW (11.5-14.5) % Plt Count (130-400) K/uL MPV (7.2-11.7) fL Neut % (Auto) (50.0-75.0) % Lymph % (Auto) (20.0-40.0) % Lane % (Auto) (0.0-10.0) % Eos % (Auto) (0.0-4.0) % Baso % (Auto) (0.0-2.0) % Neut # (1.8-7.0) K/uL Lymph # (1.0-4.3) K/uL Lane # (0.0-0.8) K/uL Eos # (0.0-0.7) K/uL Baso # (0.0-0.2) K/uL PT (9.7-12.2) SECONDS INR APTT 71 H D (21-34) SECONDS Sodium (132-148) mmol/L Potassium (3.6-5.2) mmol/L Chloride (98-107) mmol/L Carbon Dioxide (22-30) mmol/L Anion Gap (10-20) BUN (9-20) mg/dL Creatinine (0.8-1.5) mg/dL Est GFR ( Amer) Est GFR (Non-Af Amer) POC Glucose (mg/dL) 306 H 305 H (65-110) mg/dL Random Glucose (75-110) mg/dL Calcium (8.6-10.4) mg/dl Total Bilirubin (0.2-1.3) mg/dL AST (17-59) U/L ALT (21-72) U/L Alkaline Phosphatase (38-126) U/L Total Protein (6.3-8.3) g/dL Albumin (3.5-5.0) g/dL Globulin (2.2-3.9) gm/dL Albumin/Globulin Ratio (1.0-2.1) 02/10/17 02/10/17 02/10/17 Range/Units 21:18 16:46 14:41 WBC (4.8-10.8) K/uL RBC (4.40-5.90) Mil/uL Hgb (12.0-18.0) g/dL Hct (35.0-51.0) % MCV (80.0-94.0) fL MCH (27.0-31.0) pg MCHC (33.0-37.0) g/dL RDW (11.5-14.5) % Plt Count (130-400) K/uL MPV (7.2-11.7) fL Neut % (Auto) (50.0-75.0) % Lymph % (Auto) (20.0-40.0) % Lane % (Auto) (0.0-10.0) % Eos % (Auto) (0.0-4.0) % Baso % (Auto) (0.0-2.0) % Neut # (1.8-7.0) K/uL Lymph # (1.0-4.3) K/uL Lane # (0.0-0.8) K/uL Eos # (0.0-0.7) K/uL Baso # (0.0-0.2) K/uL PT (9.7-12.2) SECONDS INR APTT 97 H (21-34) SECONDS Sodium (132-148) mmol/L Potassium (3.6-5.2) mmol/L Chloride (98-107) mmol/L Carbon Dioxide (22-30) mmol/L Anion Gap (10-20) BUN (9-20) mg/dL Creatinine (0.8-1.5) mg/dL Est GFR ( Amer) Est GFR (Non-Af Amer) POC Glucose (mg/dL) 349 H 359 H (65-110) mg/dL Random Glucose (75-110) mg/dL Calcium (8.6-10.4) mg/dl Total Bilirubin (0.2-1.3) mg/dL AST (17-59) U/L ALT (21-72) U/L Alkaline Phosphatase (38-126) U/L Total Protein (6.3-8.3) g/dL Albumin (3.5-5.0) g/dL Globulin (2.2-3.9) gm/dL Albumin/Globulin Ratio (1.0-2.1) 02/10/17 Range/Units 12:11 WBC (4.8-10.8) K/uL RBC (4.40-5.90) Mil/uL Hgb (12.0-18.0) g/dL Hct (35.0-51.0) % MCV (80.0-94.0) fL MCH (27.0-31.0) pg MCHC (33.0-37.0) g/dL RDW (11.5-14.5) % Plt Count (130-400) K/uL MPV (7.2-11.7) fL Neut % (Auto) (50.0-75.0) % Lymph % (Auto) (20.0-40.0) % Lane % (Auto) (0.0-10.0) % Eos % (Auto) (0.0-4.0) % Baso % (Auto) (0.0-2.0) % Neut # (1.8-7.0) K/uL Lymph # (1.0-4.3) K/uL Lane # (0.0-0.8) K/uL Eos # (0.0-0.7) K/uL Baso # (0.0-0.2) K/uL PT (9.7-12.2) SECONDS INR APTT (21-34) SECONDS Sodium (132-148) mmol/L Potassium (3.6-5.2) mmol/L Chloride (98-107) mmol/L Carbon Dioxide (22-30) mmol/L Anion Gap (10-20) BUN (9-20) mg/dL Creatinine (0.8-1.5) mg/dL Est GFR ( Amer) Est GFR (Non-Af Amer) POC Glucose (mg/dL) 354 H (65-110) mg/dL Random Glucose (75-110) mg/dL Calcium (8.6-10.4) mg/dl Total Bilirubin (0.2-1.3) mg/dL AST (17-59) U/L ALT (21-72) U/L Alkaline Phosphatase (38-126) U/L Total Protein (6.3-8.3) g/dL Albumin (3.5-5.0) g/dL Globulin (2.2-3.9) gm/dL Albumin/Globulin Ratio (1.0-2.1) Laboratory Results - last 24 hr 02/10/17 02/10/17 02/10/17 12:11 14:41 16:46 WBC RBC Hgb Hct MCV MCH MCHC RDW Plt Count MPV Neut % (Auto) Lymph % (Auto) Lane % (Auto) Eos % (Auto) Baso % (Auto) Neut # Lymph # Lane # Eos # Baso # PT INR APTT 97 H Sodium Potassium Chloride Carbon Dioxide Anion Gap BUN Creatinine Est GFR ( Amer) Est GFR (Non-Af Amer) POC Glucose (mg/dL) 354 H 359 H Random Glucose Calcium Total Bilirubin AST ALT Alkaline Phosphatase Total Protein Albumin Globulin Albumin/Globulin Ratio 02/10/17 02/11/17 02/11/17 21:18 02:03 02:50 WBC RBC Hgb Hct MCV MCH MCHC RDW Plt Count MPV Neut % (Auto) Lymph % (Auto) Lane % (Auto) Eos % (Auto) Baso % (Auto) Neut # Lymph # Lane # Eos # Baso # PT INR APTT 71 H D Sodium Potassium Chloride Carbon Dioxide Anion Gap BUN Creatinine Est GFR ( Amer) Est GFR (Non-Af Amer) POC Glucose (mg/dL) 349 H 305 H Random Glucose Calcium Total Bilirubin AST ALT Alkaline Phosphatase Total Protein Albumin Globulin Albumin/Globulin Ratio 02/11/17 02/11/17 02/11/17 06:37 07:14 07:14 WBC 8.5 RBC 3.54 L Hgb 10.1 L Hct 30.7 L MCV 86.6 MCH 28.4 MCHC 32.8 L RDW 14.1 Plt Count 264 MPV 8.8 Neut % (Auto) 63.5 Lymph % (Auto) 19.[address] % (Auto) 11.3 H Eos % (Auto) 5.1 H Baso % (Auto) 0.4 Neut # 5.4 Lymph # 1.7 Lane # 1.0 H Eos # 0.4 Baso # 0.0 PT INR APTT Sodium 136 Potassium 2.9 L Chloride 95 L Carbon Dioxide 29 Anion Gap 15 BUN 26 H Creatinine 2.0 H Est GFR ( Amer) 40 Est GFR (Non-Af Amer) 33 POC Glucose (mg/dL) 306 H Random Glucose 258 H Calcium 8.9 Total Bilirubin 0.5 AST 23 ALT 29 Alkaline Phosphatase 76 Total Protein 7.2 Albumin 3.0 L Globulin 4.2 H Albumin/Globulin Ratio 0.7 L 02/11/17 07:14 WBC RBC Hgb Hct MCV MCH MCHC RDW Plt Count MPV Neut % (Auto) Lymph % (Auto) Lane % (Auto) Eos % (Auto) Baso % (Auto) Neut # Lymph # Lane # Eos # Baso # PT 13.1 H INR 1.2 APTT Sodium Potassium Chloride Carbon Dioxide Anion Gap BUN Creatinine Est GFR ( Amer) Est GFR (Non-Af Amer) POC Glucose (mg/dL) Random Glucose Calcium Total Bilirubin AST ALT Alkaline Phosphatase Total Protein Albumin Globulin Albumin/Globulin Ratio Critical Care Progress Note - Nutrition Nutrition: Nutrition Category Date Time Status Dysphagia/Modified Consistency Diet [DIET] Diets 02/08/17 Lunch Active Attending/Attestation - Attestation I have personally seen and examined this patient.: Yes I have fully participated in the care of the patient.: Yes I have reviewed all pertinent clinical information: Yes Notes (Text): 02/07/17 Today: Sunday, February 07, 2017 The Patient was seen and examined at the bedside, Medical records reviewed, and management issues were discussed and formulated with the house staff. I have reviewed all the relevant clinical, laboratory, hemodynamic, radiographic data and medications Events reviewed, Pain issues, skin care, head of the bed elevation, glycemic control were addressed. C Cath was not done due to possible acute CVA Continue current ICU management, Cardiology and neurology consultation appretiated Head Ct scan BIPAP, Diuresis, ASA, Plavix, Statins, BB Heparin drip BP control I concur with resident's assessment and plan of care as transcribed in Dr. Barr note.
[2017-02-07] MEDS ORDERED: Sodium Chloride 0.9% 1,000 ML IV SCH (19:30)
[2017-02-07 19:45] LABS: ABG ALLEN TEST PPS; ARTERIAL BLOOD GAS MODE BiPAP; DRAW SITE RRA
[2017-02-07] MEDS: Nitroglycerin 50mg in D5W 50 MG/250 ML BOTTLE IV SCH ×3 (20:00→23:56)
--- NOTE | 2017-02-07 20:02 | CP.PCM.PN ---
Subjective - Date & Time of Evaluation Date of Evaluation: 02/07/17 Time of Evaluation: 13:20 - Subjective Subjective: clinically same Objective - Vital Signs/Intake and Output Vital Signs (last 24 hours): Temp Pulse Resp BP Pulse Ox 98.8 F 68 22 144/68 100 02/07/17 16:00 02/07/17 20:00 02/07/17 20:00 02/07/17 20:00 02/07/17 20:00 Intake and Output: 02/07/17 02/08/17 18:59 06:59 Intake Total 300 Output Total 50 Balance 250 - Medications Medications: Current Medications Acetaminophen (Tylenol 650 Mg Supp) 650 mg AR Q6 PRN PRN Reason: Pain, moderate (4-7) Clopidogrel Bisulfate (Plavix) 75 mg PO DAILY [facility] Last Admin: 02/07/17 12:41 Dose: Not Given Famotidine (Pepcid) 20 mg IVP DAILY [facility] Last Admin: 02/07/17 12:43 Dose: 20 mg Heparin Sodium/Sodium Chloride (Heparin 04027 Units/250ml 1/2 Normal Saline) 25 ,000 units in 250 mls @ 15.24 mls/hr IV .[id number] PRN; Protocol; 12 UNITS/KG/HR PRN Reason: PROTOCOL Last Admin: 02/07/17 16:33 Dose: 14 units/kg/hr, 17.78 mls/hr Piperacillin Sod/Tazobactam (Sod 2.25 gm/ Sodium Chloride) 100 mls @ 200 mls/ hr IVPB Q6 [facility]O Last Admin: 02/07/17 18:16 Dose: 200 mls/hr Nitroglycerin/Dextrose (Nitroglycerin 50 Mg/250 Ml D5w) 50 mg in 250 mls @ 7.5 mls/hr IV .Q24H RORO; 25 MCG/MIN PRN Reason: Protocol Last Admin: 02/07/17 20:00 Dose: 25 mcg/min, 7.5 mls/hr Insulin Human Regular (Novolin R) 0 unit SC ACHS RORO PRN Reason: Protocol Last Admin: 02/07/17 17:10 Dose: 4 unit Metoprolol Tartrate (Lopressor) 5 mg IVP Q6H [facility] Morphine Sulfate (Morphine) 1 mg IVP Q4 PRN PRN Reason: Pain, severe (8-10) Rosuvastatin Calcium (Crestor) 20 mg PO HS [facility]O Last Admin: 02/06/17 21:12 Dose: 20 mg Zolpidem Tartrate (Ambien) 5 mg PO HS PRN PRN Reason: Insomnia Stop: 02/07/17 20:49 Last Admin: 02/06/17 21:12 Dose: 5 mg - Labs Labs: 02/07/17 04:50 02/07/17 04:50 PT 14.4 SECONDS (9.7-12.2) H 02/07/17 04:50 INR 1.3 02/07/17 04:50 APTT 78 SECONDS (21-34) H D 02/07/17 04:50 - Constitutional Appears: Well - Head Exam Head Exam: ATRAUMATIC, NORMAL INSPECTION, NORMOCEPHALIC - Eye Exam Eye Exam: EOMI, Normal appearance, PERRL Pupil Exam: NORMAL ACCOMODATION, PERRL - ENT Exam ENT Exam: Mucous Membranes Moist, Normal Exam - Neck Exam Neck Exam: Full ROM, Normal Inspection. absent: Lymphadenopathy - Respiratory Exam Respiratory Exam: Decreased Breath Sounds - Cardiovascular Exam Cardiovascular Exam: REGULAR RHYTHM, +S1, +S2 - GI/Abdominal Exam GI & Abdominal Exam: Soft, Diminished Bowel Sounds - Rectal Exam Rectal Exam: Deferred
[2017-02-07 23:12] LABS: BASO # 0.1 K/uL (0.0-0.2); BASO % 0.6 % (0.0-2.0); EOS # 0.1 K/uL (0.0-0.7); EOS % 1.2 % (0.0-4.0); HEMATOCRIT 27.2 % (35.0-51.0); LYMPH # 0.8 K/uL (1.0-4.3); LYMPH % 8.9 % (20.0-40.0); MEAN CELL VOLUME 86.8 fL (80.0-94.0); MEAN CORPUSCULAR HGB CONC 33.4 g/dL (33.0-37.0); MEAN PLATELET VOLUME 8.2 fL (7.2-11.7); MONO # 0.9 K/uL (0.0-0.8); MONO % 10.5 % (0.0-10.0); PLATELET COUNT 265 K/uL (130-400); WHITE BLOOD COUNT 8.9 K/uL (4.8-10.8)
[2017-02-07 23:22] LABS: POTASSIUM 3.2 mmol/L (3.6-5.2)
[2017-02-07 23:26] LABS: CALCIUM 8.8 mg/dl (8.6-10.4); MAGNESIUM 1.6 mg/dL (1.6-2.3); PHOSPHOROUS 3.6 mg/dL (2.5-4.5)
[2017-02-08] MEDS: Metoprolol 1 mg/ml Inj IVP SCH ×4 (01:00→19:31)
[2017-02-08 01:02] LABS: EOSINOPHIL 1 % (0-4); NEUTROPHIL 81 % (50-75); TOTAL CELLS COUNTED 100
[2017-02-08] MEDS: Nitroglycerin 50mg in D5W 50 MG/250 ML BOTTLE IV SCH ×2 (05:13→21:01)
[2017-02-08] MEDS: Piperacillin/Tazobact 2.25 GM in Sodium Chloride 100 ML IVPB SCH ×4 (06:21→23:58)
[2017-02-08 06:38] LABS: BASO % 0.2 % (0.0-2.0); EOS # 0.2 K/uL (0.0-0.7); EOS % 2.2 % (0.0-4.0); HEMATOCRIT 27.6 % (35.0-51.0); LYMPH # 0.9 K/uL (1.0-4.3); LYMPH % 11.6 % (20.0-40.0); MEAN CELL VOLUME 87.1 fL (80.0-94.0); MEAN CORPUSCULAR HEMOGLOBIN 28.8 pg (27.0-31.0); MEAN PLATELET VOLUME 8.1 fL (7.2-11.7); MONO % 12.4 % (0.0-10.0); WHITE BLOOD COUNT 8.1 K/uL (4.8-10.8)
[2017-02-08 06:57] LABS: POTASSIUM 3.2 mmol/L (3.6-5.2)
[2017-02-08 06:59] LABS: ALB/GLOB RATIO 0.7 (1.0-2.1); BILIRUBIN,TOTAL 0.5 mg/dL (0.2-1.3); TOTAL PROTEIN 6.9 g/dL (6.3-8.3)
[2017-02-08 07:00] LABS: CALCIUM 9.2 mg/dl (8.6-10.4); MAGNESIUM 1.6 mg/dL (1.6-2.3); PHOSPHOROUS 3.6 mg/dL (2.5-4.5)
[2017-02-08] MEDS ORDERED: Lidocaine 4% (Laryng-O-Jet) Kit MM ONE (07:42)
--- NOTE | 2017-02-08 07:47 | CP.PCM.PN ---
Subjective - Date & Time of Evaluation Date of Evaluation: 02/08/17 Time of Evaluation: 07:46 - Subjective Subjective: Mr. Campo was seen and examined at the bedside. He opens his eyes spontaneously and able to follow commands. He is currently on bipap machine for oxygen support. He is receiving Nitroglycerin drip for blood pressure control. At present, his BP 1463/71. The patient is schedule for CAROLINA this am. Heparin drip is off.He is not in any kind of distress. There was no untoward events overnight. Objective - Vital Signs/Intake and Output Vital Signs (last 24 hours): Temp Pulse Resp BP Pulse Ox 99.2 F 68 19 143/71 99 02/08/17 04:00 02/08/17 07:39 02/08/17 07:00 02/08/17 06:55 02/08/17 07:00 Intake and Output: 02/08/17 02/08/17 06:59 18:59 Intake Total 1113.3 26.8 Output Total 410 40 Balance 703.3 -13.2 - Medications Medications: Current Medications Acetaminophen (Tylenol 650 Mg Supp) 650 mg [place] Q6 PRN PRN Reason: Pain, moderate (4-7) Clopidogrel Bisulfate (Plavix) 75 mg PO DAILY [facility] Last Admin: 02/07/17 12:41 Dose: Not Given Famotidine (Pepcid) 20 mg IVP DAILY [facility] Last Admin: 02/07/17 12:43 Dose: 20 mg Heparin Sodium/Sodium Chloride (Heparin 31334 Units/250ml 1/2 Normal Saline) 25 ,000 units in 250 mls @ 15.24 mls/hr IV .[id number] PRN; Protocol; 12 UNITS/KG/HR PRN Reason: PROTOCOL Last Admin: 02/07/17 16:33 Dose: 14 units/kg/hr, 17.78 mls/hr Piperacillin Sod/Tazobactam (Sod 2.25 gm/ Sodium Chloride) 100 mls @ 200 mls/ hr IVPB Q6 [facility] Last Admin: 02/08/17 06:21 Dose: 200 mls/hr Nitroglycerin/Dextrose (Nitroglycerin 50 Mg/250 Ml D5w) 50 mg in 250 mls @ 7.5 mls/hr IV .Q24H [facility]; 25 MCG/MIN PRN Reason: Protocol Last Admin: 02/08/17 05:13 Dose: 30 mcg/min, 9 mls/hr Insulin Human Regular (Novolin R) 0 unit SC ACHS [facility] PRN Reason: Protocol Last Admin: 02/07/17 21:20 Dose: Not Given Metoprolol Tartrate (Lopressor) 5 mg IVP Q6H [facility] Rosuvastatin Calcium (Crestor) 20 mg PO HS [facility] Last Admin: 02/07/17 21:20 Dose: Not Given - Labs Labs: 02/08/17 06:33 02/08/17 06:28 PT 14.4 SECONDS (9.7-12.2) H 02/07/17 04:50 INR 1.3 02/07/17 04:50 APTT 77 SECONDS (21-34) H D 02/08/17 06:28 - Constitutional Appears: No Acute Distress - Neurological Exam Neurological Exam: Alert, Awake, CN II-XII Intact, Oriented x3 Neuro motor strength exam: Left Upper Extremity: 3, Right Upper Extremity: 3, Left Lower Extremity: 3, Right Lower Extremity: 3 Additional comments: He follows commands pupils are reactive to light accommodation. Assessment and Plan (1) Acute CVA (cerebrovascular accident) Assessment & Plan: Case discussed with Dr. Arevalo, continue current medical treatment, will follow up CAROLINA result. There is no new recommendation from neurology. Status: Acute
--- NOTE | 2017-02-08 08:09 | PN ---
DATE: SUBJECTIVE: The patient is a 71-year-old male. The patient is seen and examined on the bedside in [facility], having BiPAP. , [id number] and the 2 sons were on the bedside also. Length of time discussion done with the family and the patient examined. The patient was not able to talk due to his BiPAP, but actually the patient was transferred today in [facility] for catheterization, but he became more fatigue and drooling, incomprehensive speech, confusion, right-sided facial droop, then CAT scan of head was done in [facility]. Seen by the Neurologist and then the patient improved, he recognized his and children, was coming back to baseline, then transferred back to [facility] ICU. The patient do not have fever or chills, No nausea, vomiting or diarrhea. No headaches or dizziness. Feeling hungry and thirsty. PHYSICAL EXAMINATION: VITAL SIGNS: Temperature 98.6, pulse 94, respiratory rate 14, blood pressure 193/97, pulse 99. HEENT: Head, normocephalic, atraumatic. Eyes, PERRLA, Extraocular muscles intact. Conjunctivae clear. Nose patent. Mucous membranes moist. NECK: Supple. No carotid bruits. No JVD or thyromegaly. CHEST: Bilaterally symmetrical. HEART: S1 and S2 positive. LUNGS: Clear to auscultation. ABDOMEN: Soft. Bowel sounds are resent. No organomegaly. EXTREMITIES: No edema. No cyanosis. NEUROLOGICAL: The patient is awake and alert. Moving all 4 extremities. No focal deficit. MEDICATIONS: Tylenol, Plavix, Pepcid, heparin, antibiotics piperacillin-tazobactam, NS, acetaminophen, nitroglycerin, insulin, Lopressor, morphine, Crestor, and Ambien. LABORATORY DATA: INR is 1.3, APTT 78. Sodium 144, potassium 3.5, BUN 28, creatinine 1.7. ASSESSMENT AND PLAN: Mr. Alber Vicente is a 71-year-old male with multiple medical problems; history of 3 strokes as per , last stroke was in October, history of osteomyelitis, arthritis, hypertension, history of lower extremity edema, right hallux partial amputation postoperative day number 5 with rapid response on 01/31/2017 for respiratory distress; therefore, the patient was intubated, the patient was extubated. No history of stroke in [facility], increase respiratory rate with chest x-ray showing vascular congestion. Seen by Dr. Jaimes, has elevated troponin and [id number] myocardial infarction and history of hypertension. Student Services Dean is on the case. According to him, continue on Lopressor, Cozaar, aspirin, Plavix, Crestor, nitroglycerin. Due to vascular congestion, continue Lasix. Reduced IV fluid. The patient is getting BiPAP. Checking sugar. The patient is on sliding scale low dose protocol. Elevated BUN and creatinine. Anemia, status post blood transfusion. The patient has gram negative nat culture from right hallux, getting Zosyn. Amputation of the right hallux on postoperative day number 6. Continue heparin. Gastrointestinal and deep venous thrombosis prophylaxis, Tylenol, out of bed, aspiration precautions. Discussion done with Dr. Jaimes in the morning. Nephrology is on the case. Infectious Disease is on the case. Length of time discussion done with the patient's family, , [id number], and children. All questions answered. Repeat labs. We will follow. Zuleima Jackson MD MTDD
[2017-02-08] MEDS ORDERED: Propofol 10 mg/ml Inj (20 ML) ONE ×2 (08:16)
[2017-02-08] MEDS ORDERED: Midazolam 2 MG/2 ML VIAL ONE ×3 (08:16→09:39)
[2017-02-08] MEDS ORDERED: ePHEDrine 50 mg/ml Inj ONE (08:18)
[2017-02-08] MEDS ORDERED: Phenylephrine 10 mg/ml Inj ONE (08:18)
[2017-02-08] MEDS ORDERED: Etomidate 20 mg/10ml Inj IV ONE (08:18)
[2017-02-08] MEDS ORDERED: Ketamine 50 mg/ml Inj (10 ml) ONE (08:36)
[2017-02-08] MEDS: Heparin25000 units/250ml 1/2NS 25,000 UNITS/250 ML BAG IV PRN ×2 (09:13→22:43)
[2017-02-08] MEDS: (Novolin R) Insulin Human Regular 100 units/ml vial SC SCH ×4 (09:15→21:58)
--- NOTE | 2017-02-08 09:50 | CP.PCM.PN ---
Subjective - Date & Time of Evaluation Date of Evaluation: 02/08/17 Time of Evaluation: 13:40 - Subjective Subjective: clinically same Objective - Vital Signs/Intake and Output Vital Signs (last 24 hours): Temp Pulse Resp BP Pulse Ox 99.2 F 68 19 143/71 99 02/08/17 04:00 02/08/17 07:39 02/08/17 07:00 02/08/17 06:55 02/08/17 07:00 Intake and Output: 02/08/17 02/08/17 06:59 18:59 Intake Total 1113.3 276.8 Output Total 410 40 Balance 703.3 236.8 - Medications Medications: Current Medications Acetaminophen (Tylenol 650 Mg Supp) 650 mg [place] Q6 PRN PRN Reason: Pain, moderate (4-7) Clopidogrel Bisulfate (Plavix) 75 mg PO DAILY [facility] Last Admin: 02/07/17 12:41 Dose: Not Given Famotidine (Pepcid) 20 mg IVP DAILY [facility] Last Admin: 02/07/17 12:43 Dose: 20 mg Heparin Sodium/Sodium Chloride (Heparin 52301 Units/250ml 1/2 Normal Saline) 25 ,000 units in 250 mls @ 15.24 mls/hr IV .[id number] PRN; Protocol; 12 UNITS/KG/HR PRN Reason: PROTOCOL Last Admin: 02/08/17 09:13 Dose: 14 units/kg/hr, 17.78 mls/hr Piperacillin Sod/Tazobactam (Sod 2.25 gm/ Sodium Chloride) 100 mls @ 200 mls/ hr IVPB Q6 [facility] Last Admin: 02/08/17 06:21 Dose: 200 mls/hr Nitroglycerin/Dextrose (Nitroglycerin 50 Mg/250 Ml D5w) 50 mg in 250 mls @ 7.5 mls/hr IV .Q24H [facility]; 25 MCG/MIN PRN Reason: Protocol Last Admin: 02/08/17 05:13 Dose: 30 mcg/min, 9 mls/hr Potassium Chloride (Potassium Chloride 20 Meq/100 Ml) 20 meq in 100 mls @ 50 mls/hr IVPB ONCE ONE Stop: 02/08/17 11:36 Insulin Human Regular (Novolin R) 0 unit SC ACHS [facility] PRN Reason: Protocol Last Admin: 10/05/17 09:15 Dose: Not Given Metoprolol Tartrate (Lopressor) 5 mg IVP Q6H [facility] Last Admin: 02/08/17 07:51 Dose: 5 mg Rosuvastatin Calcium (Crestor) 20 mg PO HS [facility] Last Admin: 02/07/17 21:20 Dose: Not Given - Labs Labs: 02/08/17 06:33 02/08/17 06:28 PT 14.4 SECONDS (9.7-12.2) H 02/07/17 04:50 INR 1.3 02/07/17 04:50 APTT 77 SECONDS (21-34) H D 02/08/17 06:28 - Constitutional Appears: Well - Head Exam Head Exam: ATRAUMATIC, NORMAL INSPECTION, NORMOCEPHALIC - Eye Exam Eye Exam: EOMI, Normal appearance, PERRL Pupil Exam: NORMAL ACCOMODATION, PERRL - ENT Exam ENT Exam: Mucous Membranes Moist, Normal Exam - Neck Exam Neck Exam: Full ROM, Normal Inspection. absent: Lymphadenopathy - Respiratory Exam Respiratory Exam: Decreased Breath Sounds - Cardiovascular Exam Cardiovascular Exam: REGULAR RHYTHM, +S1, +S2 - GI/Abdominal Exam GI & Abdominal Exam: Soft, Diminished Bowel Sounds - Rectal Exam Rectal Exam: Deferred
[2017-02-08] MEDS ORDERED: Midazolam 2 MG/2 ML VIAL IVP ONE (10:16)
--- NOTE | 2017-02-08 11:26 | CP.PCM.PN ---
Subjective - Date & Time of Evaluation Date of Evaluation: 02/08/17 Time of Evaluation: 07:30 - Subjective Subjective: Ai Williamson DO PGY1 - Cardiology Progress Note for Dr. Jaimes Patient seen and examined at bedside in the ICU. Patient was noted to be much more awake and alert this morning, oriented x3, responding to questions appropriately, obeying simple commands. Patient underwent bedside CAROLINA this morning, which he tolerated well without any complications. He is currently complaining of hunger and thirst, but denies any CP, SOB, or palpitations. Objective - Vital Signs/Intake and Output Vital Signs (last 24 hours): Temp Pulse Resp BP Pulse Ox 99.2 F 68 19 143/71 99 02/08/17 04:00 02/08/17 07:39 02/08/17 07:00 02/08/17 06:55 02/08/17 07:00 Intake and Output: 02/08/17 02/08/17 06:59 18:59 Intake Total 1113.3 276.8 Output Total 410 40 Balance 703.3 236.8 - Medications Medications: Current Medications Acetaminophen (Tylenol 650 Mg Supp) 650 mg [place] Q6 PRN PRN Reason: Pain, moderate (4-7) Clopidogrel Bisulfate (Plavix) 75 mg PO DAILY [facility] Last Admin: 02/07/17 12:41 Dose: Not Given Famotidine (Pepcid) 20 mg IVP DAILY [facility] Last Admin: 02/07/17 12:43 Dose: 20 mg Heparin Sodium/Sodium Chloride (Heparin 56091 Units/250ml 1/2 Normal Saline) 25 ,000 units in 250 mls @ 15.24 mls/hr IV .[id number] PRN; Protocol; 12 UNITS/KG/HR PRN Reason: PROTOCOL Last Admin: 02/08/17 09:13 Dose: 14 units/kg/hr, 17.78 mls/hr Piperacillin Sod/Tazobactam (Sod 2.25 gm/ Sodium Chloride) 100 mls @ 200 mls/ hr IVPB Q6 [facility] Last Admin: 02/08/17 06:21 Dose: 200 mls/hr Nitroglycerin/Dextrose (Nitroglycerin 50 Mg/250 Ml D5w) 50 mg in 250 mls @ 7.5 mls/hr IV .Q24H [facility]; 25 MCG/MIN PRN Reason: Protocol Last Admin: 02/08/17 05:13 Dose: 30 mcg/min, 9 mls/hr Potassium Chloride (Potassium Chloride 20 Meq/100 Ml) 20 meq in 100 mls @ 50 mls/hr IVPB ONCE ONE Stop: 02/08/17 11:36 Insulin Human Regular (Novolin R) 0 unit SC ACHS [facility] PRN Reason: Protocol Last Admin: 02/08/17 09:15 Dose: Not Given Metoprolol Tartrate (Lopressor) 5 mg IVP Q6H [facility] Last Admin: 02/08/17 07:51 Dose: 5 mg Rosuvastatin Calcium (Crestor) 40 mg PO HS [facility] - Labs Labs: 02/08/17 06:33 02/08/17 06:28 PT 14.4 SECONDS (9.7-12.2) H 02/07/17 04:50 INR 1.3 02/07/17 04:50 APTT 77 SECONDS (21-34) H D 02/08/17 06:28 - Constitutional Appears: Non-toxic, No Acute Distress, Chronically Ill - Head Exam Head Exam: ATRAUMATIC, NORMOCEPHALIC - Eye Exam Eye Exam: EOMI, Normal appearance, PERRL - ENT Exam ENT Exam: Mucous Membranes Moist - Neck Exam Neck Exam: Normal Inspection - Respiratory Exam Respiratory Exam: Clear to Ausculation Bilateral, NORMAL BREATHING PATTERN - Cardiovascular Exam Cardiovascular Exam: RRR, +S1, +S2 - GI/Abdominal Exam GI & Abdominal Exam: Soft. absent: Tenderness - Extremities Exam Extremities Exam: Pedal Edema (trace). absent: Calf Tenderness - Neurological Exam Neurological Exam: Alert, Awake, CN II-XII Intact, Oriented x3 Neuro motor strength exam: Left Upper Extremity: 5, Right Upper Extremity: 5, Left Lower Extremity: 3, Right Lower Extremity: 3 - Psychiatric Exam Psychiatric exam: Normal Affect, Normal Mood - Skin Skin Exam: Dry, Intact Assessment and Plan (1) NSTEMI (non-ST elevated myocardial infarction) Assessment & Plan: LHCx was scheduled yesterday, but postponed because patient had a stroke CAROLINA today shows aortic atheroma, as possible etiology for stroke; patient still requires LHCx, but will hold off at this time until after completion of neurologic workup, and medical plaque stabilization Continue heparin drip, BB, ASA, Plavix, Statin - Will increase dose of statin - Cannot give ACEi/ARB at this time due to PORTIA Repeat echo normal LVEF, no regional wall motion abnormalities Status: Acute (2) Acute CVA (cerebrovascular accident) Assessment & Plan: Patient mental status and neurological status returned to baseline this morning , with normal mentation and no focal neurological signs Patient has history of multiple CVA in the past (total 4) Likely 2/2 to thromboembolic disease vs small-vessel disease - CAROLINA today showed aortic atheroma, possible cause of thomboembolic disease - Pending MRI/MRA per neurology to r/o small vessel disease - Patient may require lifetime oral anticoagulation if MRI/MRA can r/o small vessel disease Patient is being seen by Dr. Jackson Arevalo; appreciate recs Continue heparin drip BP goal as below Further workup and management per Dr. Arevalo and ICU team Status: Acute (3) CAD (coronary artery disease) Status: Acute (4) Osteomyelitis Assessment & Plan: Patient initially presented with R great toe osteomyelitis, now s/p amputation Podiatry following Status: Acute (5) Dyslipidemia Assessment & Plan: Continue statin; though patient is currently NPO, so has not been getting statin ; patient refuses NG tube - Will require high dose statin (Crestor 40) for plaque stabilization Status: Chronic (6) HTN (hypertension) Assessment & Plan: BP remains elevated; patient had CVA, no bleed noted on CT head BP goal SBP<185 and DBP<105 per neurology Currently on Lopressor 5mg IV Q6 (not 20mg Q6 as in prior note) Currently on nitroglycerin drip Continue to monitor BP and titrate medications as needed Status: Chronic (7) Diabetes mellitus Assessment & Plan: Stable Management per primary team Maintain euglycemia Status: Chronic (8) Acute kidney injury Assessment & Plan: Cr slightly elevated today, after IVF held and received lasix for acute pulmonary edema Continue to monitor Nephro on consult, appreciate recs Status: Acute (9) Cardiogenic pulmonary edema Assessment & Plan: Patient no longer in respiratory distress; did receive BIPAP overnight, and maintained normal SaO2; now saturating well on O2 by NC - Recommend CPAP nightly for likely LATRELL CXR yesterday shows significant pulmonary vascular congestion Diuresed well with one time dose of IV lasix Further workup and management per ICU team Status: Acute
--- NOTE | 2017-02-08 13:23 | CP.PCM.PN ---
Subjective - Date & Time of Evaluation Date of Evaluation: 02/08/17 Time of Evaluation: 10:50 - Subjective Subjective: Podiatry Progress Note - Dr. Tariq: 71 y/o male patient seen at bedside in ICU this morning POD #8 s/p partial amp of right great toe. Pt did not undergo cardiac catherixation yeserday due to suffering an acute CVA. Pt is seen in bed at this time eating under direction of speech-pathologist. Pt is varbalizing simple sentences in context with out conversation and subject. Patient is no longer intubated, though was undergoing BiPAP earlier in AM at first attempt at visit. Pt denies any pain to the right lower extremity today. Denies f/n/v/c/sob/cp/weakness or dizziness today. Objective - Vital Signs/Intake and Output Vital Signs (last 24 hours): Temp Pulse Resp BP Pulse Ox 99.2 F 68 19 143/71 99 02/08/17 04:00 02/08/17 07:39 02/08/17 07:00 02/08/17 06:55 02/08/17 07:00 Intake and Output: 02/08/17 02/08/17 06:59 18:59 Intake Total 1113.3 276.8 Output Total 410 40 Balance 703.3 236.8 - Medications Medications: Current Medications Acetaminophen (Tylenol 650 Mg Supp) 650 mg [place] Q6 PRN PRN Reason: Pain, moderate (4-7) Last Admin: 02/08/17 12:07 Dose: 650 mg Clopidogrel Bisulfate (Plavix) 75 mg PO DAILY [facility] Last Admin: 02/08/17 12:06 Dose: 75 mg Famotidine (Pepcid) 20 mg IVP DAILY [facility] Last Admin: 02/08/17 12:04 Dose: 20 mg Heparin Sodium/Sodium Chloride (Heparin 77537 Units/250ml 1/2 Normal Saline) 25 ,000 units in 250 mls @ 15.24 mls/hr IV .[id number] PRN; Protocol; 12 UNITS/KG/HR PRN Reason: PROTOCOL Last Admin: 02/08/17 09:13 Dose: 14 units/kg/hr, 17.78 mls/hr Piperacillin Sod/Tazobactam (Sod 2.25 gm/ Sodium Chloride) 100 mls @ 200 mls/ hr IVPB Q6 [facility] Last Admin: 02/08/17 12:13 Dose: 200 mls/hr Nitroglycerin/Dextrose (Nitroglycerin 50 Mg/250 Ml D5w) 50 mg in 250 mls @ 7.5 mls/hr IV .Q24H [facility]; 25 MCG/MIN PRN Reason: Protocol Last Admin: 02/08/17 05:13 Dose: 30 mcg/min, 9 mls/hr Insulin Human Regular (Novolin R) 0 unit SC ACHS [facility] PRN Reason: Protocol Last Admin: 02/08/17 12:23 Dose: 4 unit Metoprolol Tartrate (Lopressor) 5 mg IVP Q6H [facility] Last Admin: 02/08/17 07:51 Dose: 5 mg Rosuvastatin Calcium (Crestor) 40 mg PO HS [facility] - Labs Labs: 02/08/17 06:33 02/08/17 06:28 PT 14.4 SECONDS (9.7-12.2) H 02/07/17 04:50 INR 1.3 02/07/17 04:50 APTT 77 SECONDS (21-34) H D 02/08/17 06:28 - Constitutional Appears: Well, Non-toxic, No Acute Distress - Extremities Exam Additional comments: Right foot focused. Dressing intact though disheveled. DERM: Right hallux amputation site visualized, plantar flap is cyanotic and increased in ecchymotic presentation sores along entire plantar flap. Flap is warm to touch, and remains stably adhered. All sutures remain intact, no active serous drainage noted. Minor medial suture site dehiscience noted. No purulent drainage. VASC: SP and PT pulses graded 1/4. Mild non-pitting edema noted to right foot. Temperature runs warms to cool proximal to distal. NEURO: Protective sensation grossly diminished. Assessment and Plan - Assessment and Plan (Free Text) Assessment: 71 yo male patient POD #8 partial amputation right hallux 2/2 diabetic neuropathy Plan: Pt seen and treated. Discussed in detail with attending, Dr. Tariq. Chart, labs, and vitals reviewed. Afebrile absent leukocytosis. Cleansed surgical site with peroxide, dressed with peroxide wet-to-dry dressing and DSD. Noted halluz amputation site shows more apparrent minor trauma and plantar flap vascular compromise. Viablity and healing potential at site an acute concern. Pt and nursing care takers report improved compliance with use of dispensed multipoduis boots at all time while in bed. Discussed with patient and that potential for flap failure is present and need for revision surgery with addition amputation site increasing in likilihood. Will continue to monitor. c/w offloading boots bilaterally. c/w IV abx per ID Noted Acute CVA and NSTEM. Should revisional surgery occur medical recommendation to avoid opioids acknowledged. Podiatry will continue to follow patient while inhouse.
--- NOTE | 2017-02-08 19:09 | CP.PCM.PN ---
Subjective - Date & Time of Evaluation Date of Evaluation: 02/08/17 Time of Evaluation: 07:00 - Subjective Subjective: more awake left sided neglect but moves it with some difficulty Objective - Vital Signs/Intake and Output Vital Signs (last 24 hours): Temp Pulse Resp BP Pulse Ox 98.5 F 76 24 131/65 94 L 02/08/17 12:00 02/08/17 15:02 02/08/17 15:02 02/08/17 15:02 02/08/17 13:12 Intake and Output: 02/08/17 02/09/17 18:59 06:59 Intake Total 1753.8 Output Total 1140 Balance 613.8 - Medications Medications: Current Medications Clopidogrel Bisulfate (Plavix) 75 mg PO DAILY [facility] Last Admin: 02/08/17 12:06 Dose: 75 mg Famotidine (Pepcid) 20 mg IVP DAILY [facility] Last Admin: 02/08/17 12:04 Dose: 20 mg Heparin Sodium/Sodium Chloride (Heparin 02235 Units/250ml 1/2 Normal Saline) 25 ,000 units in 250 mls @ 15.24 mls/hr IV .[id number] PRN; Protocol; 12 UNITS/KG/HR PRN Reason: PROTOCOL Last Admin: 02/08/17 09:13 Dose: 14 units/kg/hr, 17.78 mls/hr Piperacillin Sod/Tazobactam (Sod 2.25 gm/ Sodium Chloride) 100 mls @ 200 mls/ hr IVPB Q6 [facility] Last Admin: 02/08/17 17:17 Dose: 200 mls/hr Nitroglycerin/Dextrose (Nitroglycerin 50 Mg/250 Ml D5w) 50 mg in 250 mls @ 7.5 mls/hr IV .Q24H [facility]; 25 MCG/MIN PRN Reason: Protocol Last Admin: 02/08/17 05:13 Dose: 30 mcg/min, 9 mls/hr Acetaminophen 1,000 mg/ (Miscellaneous) 100 mls @ 400 mls/hr IV Q6 PRN PRN Reason: Pain, moderate (4-7) Stop: 02/09/17 19:07 Insulin Human Regular (Novolin R) 0 unit SC ACHS [facility] PRN Reason: Protocol Last Admin: 02/08/17 17:19 Dose: 8 unit Metoprolol Tartrate (Lopressor) 5 mg IVP Q6H [facility] Last Admin: 02/08/17 14:19 Dose: 5 mg Rosuvastatin Calcium (Crestor) 40 mg PO HS [facility] - Labs Labs: 02/08/17 06:33 02/08/17 06:28 PT 14.4 SECONDS (9.7-12.2) H 02/07/17 04:50 INR 1.3 02/07/17 04:50 APTT 77 SECONDS (21-34) H D 02/08/17 06:28 - Constitutional Appears: Non-toxic, Chronically Ill - Head Exam Head Exam: NORMOCEPHALIC - Eye Exam Eye Exam: PERRL - ENT Exam ENT Exam: Mucous Membranes Dry - Neck Exam Neck Exam: absent: Lymphadenopathy - Respiratory Exam Respiratory Exam: Decreased Breath Sounds - Cardiovascular Exam Cardiovascular Exam: REGULAR RHYTHM - GI/Abdominal Exam GI & Abdominal Exam: Distended, Soft - Rectal Exam Rectal Exam: Deferred Assessment and Plan (1) Cellulitis Status: Acute (2) Osteomyelitis Status: Acute (3) Toe gangrene Status: Acute (4) Abscess of great toe Status: Acute (5) Diabetes mellitus Status: Chronic
--- NOTE | 2017-02-09 00:41 | PN ---
DATE: SUBJECTIVE: The patient is a 71-year-old male. The patient is seen and examined on the bedside in the ICU of [facility], much more awake, alert, oriented x3, and responding questions appropriately. He is obeying simple orders. He underwent CAROLINA at his bedside, tolerated procedure very well. He is complaining about hungry and thirsty. No chest pain. No nausea, vomiting, or diarrhea. No hematuria or hematochezia. No fever and no chills. PHYSICAL EXAMINATION: VITAL SIGNS: Temperature is 99.2, pulse is 68, respiratory rate is 19, blood pressure is 142/71, and pulse oxymetry is 99. HEENT: Head is normocephalic, atraumatic. Eyes; PERRLA and extraocular muscles are intact. Conjunctivae are clear. Nose is patent. NECK: Supple. No carotid bruits. No JVD or thyromegaly. CHEST: Bilaterally symmetrical. HEART: S1 and S2 positive. LUNGS: Clear to auscultation. ABDOMEN: Soft. Bowel sounds normal. No organomegaly. EXTREMITIES: No edema. No cyanosis. NEUROLOGIC: The patient is awake and alert. Moving all 4 extremities. No focal deficit. MEDICATIONS: Reviewed by me. LABORATORY DATA: Reviewed by me. ASSESSMENT AND PLAN: Mr. Jules Campo is a 71--year-old male with [id number] myocardial infarction. The patient was scheduled yesterday for cardiac catheterization in [facility], but postponed because of the patient had the stroke. Transesophageal echocardiography today shows aortic atheroma as possible etiology of the stroke. The patient still requires cath , completion of neurologic workup and medical plaque stabilization. Continue heparin drip, aspirin, Plavix, and statin. 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 Continue giving angiotensin-converting enzyme inhibitor/angiotensin receptor blockers at this time due to acute kidney injury. Repeat echo; normal left ventricular ejection fraction, no regional wall motion abnormalities, and history of acute cardiovascular accident. The patient's mental status and neurological status returned to baseline. At this time, he has normal mentation and no focal neurological deficit, coronary artery disease, osteomyelitis, dyslipidemia, hypertension, diabetes mellitus, acute kidney injury, cardiogenic pulmonary edema, history of osteomyelitis, history of amputation of the toe. The patient was intubated and extubated. He was receiving bilevel positive airway pressure overnight. Recommended continuous positive airway pressure nightly for likely obstructive sleep apnea. Chest x-ray shows significant pulmonary vascular congestion. Diuretics have added. Further workup as management of our ICU team. Repeat laboratories. Zuleima Jackson MD MTDJackson
[2017-02-09] MEDS: Metoprolol 1 mg/ml Inj IVP SCH ×2 (01:45→08:24)
[2017-02-09] MEDS: Piperacillin/Tazobact 2.25 GM in Sodium Chloride 100 ML IVPB SCH ×3 (05:38→18:12)
[2017-02-09 06:26] LABS: BASO % 0.4 % (0.0-2.0); EOS # 0.5 K/uL (0.0-0.7); EOS % 6.2 % (0.0-4.0); HEMATOCRIT 27.6 % (35.0-51.0); LYMPH % 13.5 % (20.0-40.0); MEAN CELL VOLUME 87.1 fL (80.0-94.0); MEAN CORPUSCULAR HEMOGLOBIN 28.9 pg (27.0-31.0); MEAN CORPUSCULAR HGB CONC 33.2 g/dL (33.0-37.0); MEAN PLATELET VOLUME 8.2 fL (7.2-11.7); MONO # 1.1 K/uL (0.0-0.8); MONO % 14.7 % (0.0-10.0); NRBC % 0.1 % (0.0-2.0); RED CELL DISTRIBUTION WIDTH 14.4 % (11.5-14.5); WHITE BLOOD COUNT 7.3 K/uL (4.8-10.8)
[2017-02-09 06:34] LABS: POTASSIUM 3.5 mmol/L (3.6-5.2)
[2017-02-09 06:36] LABS: ALB/GLOB RATIO 0.7 (1.0-2.1); BILIRUBIN,TOTAL 0.5 mg/dL (0.2-1.3)
[2017-02-09 06:37] LABS: CALCIUM 8.7 mg/dl (8.6-10.4); MAGNESIUM 1.7 mg/dL (1.6-2.3); PHOSPHOROUS 3.2 mg/dL (2.5-4.5)
[2017-02-09] MEDS ORDERED: Potassium Chloride 20 mEq ER Tab PO ONE ×2 (07:10→19:53)
--- NOTE | 2017-02-09 08:14 | CP.PCM.PN ---
Subjective - Date & Time of Evaluation Date of Evaluation: 02/09/17 Time of Evaluation: 08:11 - Subjective Subjective: Mr. Campo was seen and examined at the bedside. He is agitated due to his request of drinking thin liquids. He has an order for thickened liquids. He refused wet gauze to be applied in his lips. Requested special liquid to be delivered to his room kennedy.He is able to follow commands. There is no untoward events overnight. Objective - Vital Signs/Intake and Output Vital Signs (last 24 hours): Temp Pulse Resp BP Pulse Ox 97.8 F 74 20 180/79 H 99 02/09/17 07:55 02/09/17 07:55 02/09/17 07:55 02/09/17 07:55 02/09/17 07:55 Intake and Output: 02/09/17 02/09/17 06:59 18:59 Intake Total 1474.8 Output Total 600 Balance 874.8 - Medications Medications: Current Medications Clopidogrel Bisulfate (Plavix) 75 mg PO DAILY [facility] Last Admin: 02/08/17 12:06 Dose: 75 mg Famotidine (Pepcid) 20 mg IVP DAILY [facility] Last Admin: 02/08/17 12:04 Dose: 20 mg Heparin Sodium/Sodium Chloride (Heparin 76450 Units/250ml 1/2 Normal Saline) 25 ,000 units in 250 mls @ 15.24 mls/hr IV .[id number] PRN; Protocol; 12 UNITS/KG/HR PRN Reason: PROTOCOL Last Admin: 02/08/17 22:43 Dose: 14 units/kg/hr, 17.78 mls/hr Piperacillin Sod/Tazobactam (Sod 2.25 gm/ Sodium Chloride) 100 mls @ 200 mls/ hr IVPB Q6 [facility] Last Admin: 02/09/17 05:38 Dose: 200 mls/hr Nitroglycerin/Dextrose (Nitroglycerin 50 Mg/250 Ml D5w) 50 mg in 250 mls @ 7.5 mls/hr IV .Q24H [facility]; 25 MCG/MIN PRN Reason: Protocol Last Admin: 02/08/17 21:01 Dose: 20 mcg/min, 6 mls/hr Acetaminophen (Ofirmev) 100 mls @ 400 mls/hr IV Q6H PRN PRN Reason: Pain, moderate (4-7) Stop: 02/09/17 19:07 Last Admin: 02/08/17 19:30 Dose: 400 mls/hr Insulin Human Regular (Novolin R) 0 unit SC ACHS [facility] PRN Reason: Protocol Last Admin: 02/08/17 21:58 Dose: 2 unit Metoprolol Tartrate (Lopressor) 5 mg IVP Q6H [facility] Last Admin: 02/09/17 01:45 Dose: Not Given Rosuvastatin Calcium (Crestor) 40 mg PO HS [facility] Last Admin: 02/08/17 21:39 Dose: 40 mg - Labs Labs: 02/09/17 06:17 02/09/17 06:17 PT 14.4 SECONDS (9.7-12.2) H 02/07/17 04:50 INR 1.3 02/07/17 04:50 APTT 69 SECONDS (21-34) H D 02/09/17 06:17 - Constitutional Appears: Agitated - Head Exam Head Exam: ATRAUMATIC, NORMAL INSPECTION, NORMOCEPHALIC - Neurological Exam Neurological Exam: Alert, Awake, CN II-XII Intact, Oriented x3 Neuro motor strength exam: Left Upper Extremity: 4, Right Upper Extremity: 5, Left Lower Extremity: 5, Right Lower Extremity: 4 Additional comments: He still have a weak left upper extremity and right lower extremity. He is able to follow commands. - Psychiatric Exam Psychiatric exam: Agitated (He wants thin liquids not thickened liquids.) Assessment and Plan (1) Acute CVA (cerebrovascular accident) Assessment & Plan: Case discussed with Dr. Arevalo, with GFR is low, MRI/ MRA of the head and neck , but to be accompanied by a physician and nurse during the procedure. Continu current medical, physical, occupational, and speech therapies. Status: Acute
[2017-02-09] MEDS: (Novolin R) Insulin Human Regular 100 units/ml vial SC SCH ×4 (08:30→21:25)
--- NOTE | 2017-02-09 10:57 | CP.PCM.PN ---
Subjective - Date & Time of Evaluation Date of Evaluation: 02/09/17 Time of Evaluation: 07:15 - Subjective Subjective: Ai Williamson DO PGY1 - Cardiology Progress Note for Dr. Jaimes Patient seen and examined at bedside, no events overnight. Patient passed swallow eval yesterday for thickened liquids/pureed food, and is tolerating PO now. He is complaining of SOB when lying flat, but denies chest pain, palpitations. Patient is pending MRI/MRA as part of neurologic workup, but was previously unable to tolerate lying flat for prolonged periods of time Objective - Vital Signs/Intake and Output Vital Signs (last 24 hours): Temp Pulse Resp BP Pulse Ox 97.8 F 74 20 170/84 H 99 02/09/17 07:55 02/09/17 07:55 02/09/17 07:55 02/09/17 09:26 02/09/17 07:55 Intake and Output: 02/09/17 02/09/17 06:59 18:59 Intake Total 1474.8 Output Total 600 Balance 874.8 - Medications Medications: Current Medications Clopidogrel Bisulfate (Plavix) 75 mg PO DAILY [facility] Last Admin: 02/09/17 09:25 Dose: 75 mg Famotidine (Pepcid) 20 mg IVP DAILY [facility] Last Admin: 02/09/17 09:26 Dose: 20 mg Furosemide (Lasix) 40 mg IVP Q12 [facility] Last Admin: 02/09/17 09:26 Dose: 40 mg Heparin Sodium/Sodium Chloride (Heparin 94695 Units/250ml 1/2 Normal Saline) 25 ,000 units in 250 mls @ 15.24 mls/hr IV .[id number] PRN; Protocol; 12 UNITS/KG/HR PRN Reason: PROTOCOL Last Admin: 02/08/17 22:43 Dose: 14 units/kg/hr, 17.78 mls/hr Piperacillin Sod/Tazobactam (Sod 2.25 gm/ Sodium Chloride) 100 mls @ 200 mls/ hr IVPB Q6 [facility] Last Admin: 02/09/17 05:38 Dose: 200 mls/hr Acetaminophen (Ofirmev) 100 mls @ 400 mls/hr IV Q6H PRN PRN Reason: Pain, moderate (4-7) Stop: 02/09/17 19:07 Last Admin: 02/08/17 19:30 Dose: 400 mls/hr Insulin Human Regular (Novolin R) 0 unit SC ACHS [facility] PRN Reason: Protocol Last Admin: 02/09/17 08:30 Dose: 6 unit Metoprolol Tartrate (Lopressor) 50 mg PO BRK [facility] Metoprolol Tartrate (Lopressor) 50 mg PO DIN [facility] Rosuvastatin Calcium (Crestor) 40 mg PO HS [facility] Last Admin: 02/08/17 21:39 Dose: 40 mg - Labs Labs: 02/09/17 06:17 02/09/17 06:17 PT 14.4 SECONDS (9.7-12.2) H 02/07/17 04:50 INR 1.3 02/07/17 04:50 APTT 69 SECONDS (21-34) H D 02/09/17 06:17 - Constitutional Appears: Non-toxic, No Acute Distress, Chronically Ill - Head Exam Head Exam: ATRAUMATIC, NORMOCEPHALIC - Eye Exam Eye Exam: EOMI, Normal appearance - ENT Exam ENT Exam: Mucous Membranes Moist - Neck Exam Neck Exam: Normal Inspection - Respiratory Exam Respiratory Exam: Rales (diffuse), NORMAL BREATHING PATTERN - Cardiovascular Exam Cardiovascular Exam: RRR, +S1, +S2 - GI/Abdominal Exam GI & Abdominal Exam: Soft. absent: Tenderness - Extremities Exam Extremities Exam: absent: Calf Tenderness Additional comments: 2+ edema b/l LE RLE with dressing on right great toe, appears CDI - Neurological Exam Neurological Exam: Alert, Awake, Oriented x3 Neuro motor strength exam: Left Upper Extremity: 5, Right Upper Extremity: 5, Left Lower Extremity: 2/1, Right Lower Extremity: 2/1 - Psychiatric Exam Psychiatric exam: Normal Affect, Normal Mood - Skin Skin Exam: Dry, Intact Assessment and Plan (1) NSTEMI (non-ST elevated myocardial infarction) Assessment & Plan: Patient requires LHCx and possibly PCI, but holding off at this time due to acute CVA and CAROLINA findings CAROLINA yesterday showed aortic atheroma, as possible etiology for stroke; patient still requires LHCx, but will hold off at this time until after completion of neurologic workup, and medical plaque stabilization Continue heparin drip, BB, ASA, Plavix, Statin - Cannot give ACEi/ARB at this time due to PORTIA - Patient bradycardic overnight, remains hypertensive; switched metoprolol from IV to PO 50mg BID - Started lasix, as below, which should also improve BP Status: Acute (2) Acute CVA (cerebrovascular accident) Assessment & Plan: Patient mental status and neurological neuro exam baseline today Patient has history of multiple CVA in the past (total 4) Likely 2/2 to thromboembolic disease vs small-vessel disease - CAROLINA yesterday showed aortic atheroma, possible cause of thomboembolic disease - Pending MRI/MRA per neurology to r/o small vessel disease - Patient may require lifetime oral anticoagulation if MRI/MRA does r/o small vessel disease Patient is being seen by Dr. Jackson Arevalo; appreciate recs Continue heparin drip BP goal as below Further workup and management per Dr. Arevalo and ICU team Status: Acute (3) Cardiogenic pulmonary edema Assessment & Plan: Patient no longer in respiratory distress, but continues to have significant orthopnea, and congestion on exam; did receive BIPAP overnight, and maintained normal SaO2; now saturating well on O2 by NC - Recommend CPAP nightly for likely LATRELL Start Lasix 40mg IV BID Monitor I&O Status: Acute (4) CAD (coronary artery disease) Status: Acute (5) HTN (hypertension) Assessment & Plan: BP elevated, but at goal; patient had CVA, no bleed noted on CT head BP goal SBP<185 and DBP<105 per neurology Currently on Lopressor 5mg IV Q6; patient was bradycardic overnight and is now tolerating PO - Switched to metoprolol 50mg PO BID Discontinue nitroglycerin drip Continue to monitor BP and titrate medications as needed Status: Chronic (6) Dyslipidemia Assessment & Plan: Continue high dose statin (Crestor 40) for plaque stabilization Status: Chronic (7) Acute kidney injury Assessment & Plan: PORTIA slightly improved today Continue to monitor Nephro on consult, appreciate recs Status: Acute (8) Osteomyelitis Assessment & Plan: Patient initially presented with R great toe osteomyelitis, now s/p amputation Podiatry following Status: Acute (9) Diabetes mellitus Assessment & Plan: Stable Management per primary team Maintain euglycemia Status: Chronic
[2017-02-09] MEDS: Heparin25000 units/250ml 1/2NS 25,000 UNITS/250 ML BAG IV PRN (16:37)
--- NOTE | 2017-02-09 17:52 | CP.PCM.PN ---
Subjective - Date & Time of Evaluation Date of Evaluation: 02/09/17 Time of Evaluation: 09:00 - Subjective Subjective: upset at times less confused afebrile iv rx renewed Objective - Vital Signs/Intake and Output Vital Signs (last 24 hours): Temp Pulse Resp BP Pulse Ox 97.8 F 78 20 170/84 H 99 02/09/17 07:55 02/09/17 17:00 02/09/17 07:55 02/09/17 09:26 02/09/17 07:55 Intake and Output: 02/09/17 02/09/17 06:59 18:59 Intake Total 1474.8 1300 Output Total 600 1000 Balance 874.8 300 - Medications Medications: Current Medications Clopidogrel Bisulfate (Plavix) 75 mg PO DAILY [facility] Last Admin: 02/09/17 09:25 Dose: 75 mg Famotidine (Pepcid) 20 mg IVP DAILY [facility] Last Admin: 02/09/17 09:26 Dose: 20 mg Furosemide (Lasix) 40 mg IVP Q12 [facility] Last Admin: 02/09/17 09:26 Dose: 40 mg Heparin Sodium/Sodium Chloride (Heparin 69493 Units/250ml 1/2 Normal Saline) 25 ,000 units in 250 mls @ 15.24 mls/hr IV .[id number] PRN; Protocol; 12 UNITS/KG/HR PRN Reason: PROTOCOL Last Admin: 02/09/17 16:37 Dose: 14 units/kg/hr, 17.78 mls/hr Piperacillin Sod/Tazobactam (Sod 2.25 gm/ Sodium Chloride) 100 mls @ 200 mls/ hr IVPB Q6 [facility] Last Admin: 02/09/17 13:00 Dose: 200 mls/hr Acetaminophen (Ofirmev) 100 mls @ 400 mls/hr IV Q6H PRN PRN Reason: Pain, moderate (4-7) Stop: 02/09/17 19:07 Last Admin: 02/08/17 19:30 Dose: 400 mls/hr Insulin Human Regular (Novolin R) 0 unit SC ACHS [facility] PRN Reason: Protocol Last Admin: 02/09/17 12:30 Dose: 8 unit Metoprolol Tartrate (Lopressor) 50 mg PO BRK [facility] Last Admin: 02/09/17 10:45 Dose: Not Given Metoprolol Tartrate (Lopressor) 50 mg PO DIN [facility] Rosuvastatin Calcium (Crestor) 40 mg PO HS [facility] Last Admin: 02/08/17 21:39 Dose: 40 mg - Labs Labs: 02/09/17 06:17 02/09/17 06:17 PT 14.4 SECONDS (9.7-12.2) H 02/07/17 04:50 INR 1.3 02/07/17 04:50 APTT 69 SECONDS (21-34) H D 02/09/17 06:17 - Constitutional Appears: Non-toxic, Chronically Ill - Head Exam Head Exam: NORMOCEPHALIC - Eye Exam Eye Exam: PERRL. absent: Scleral icterus - ENT Exam ENT Exam: Mucous Membranes Dry - Neck Exam Neck Exam: absent: Lymphadenopathy - Respiratory Exam Respiratory Exam: Decreased Breath Sounds - Cardiovascular Exam Cardiovascular Exam: Tachycardia - GI/Abdominal Exam GI & Abdominal Exam: Distended, Soft - Rectal Exam Rectal Exam: Deferred - Exam Exam: NORMAL INSPECTION - Extremities Exam Extremities Exam: absent: Pedal Edema Assessment and Plan (1) Cellulitis Status: Acute (2) Osteomyelitis Status: Acute (3) Toe gangrene Status: Acute (4) Abscess of great toe Status: Acute (5) Diabetes mellitus Status: Chronic
--- NOTE | 2017-02-09 18:58 | CP.PCM.PN ---
Subjective - Date & Time of Evaluation Date of Evaluation: 02/09/17 Time of Evaluation: 10:40 - Subjective Subjective: clinically same Objective - Vital Signs/Intake and Output Vital Signs (last 24 hours): Temp Pulse Resp BP Pulse Ox 97.2 F L 78 20 173/82 H 99 02/09/17 15:00 02/09/17 17:00 02/09/17 15:00 02/09/17 15:00 02/09/17 15:00 Intake and Output: 02/09/17 02/09/17 06:59 18:59 Intake Total 1474.8 1300 Output Total 600 1000 Balance 874.8 300 - Medications Medications: Current Medications Acetaminophen (Tylenol 325mg Tab) 650 mg PO Q8H PRN PRN Reason: Pain, Mild (1-3) Clopidogrel Bisulfate (Plavix) 75 mg PO DAILY [facility] Last Admin: 02/09/17 09:25 Dose: 75 mg Famotidine (Pepcid) 20 mg IVP DAILY [facility] Last Admin: 02/09/17 09:26 Dose: 20 mg Furosemide (Lasix) 40 mg IVP Q12 [facility] Last Admin: 02/09/17 09:26 Dose: 40 mg Heparin Sodium/Sodium Chloride (Heparin 46679 Units/250ml 1/2 Normal Saline) 25 ,000 units in 250 mls @ 15.24 mls/hr IV .[id number] PRN; Protocol; 12 UNITS/KG/HR PRN Reason: PROTOCOL Last Admin: 02/09/17 16:37 Dose: 14 units/kg/hr, 17.78 mls/hr Piperacillin Sod/Tazobactam (Sod 2.25 gm/ Sodium Chloride) 100 mls @ 200 mls/ hr IVPB Q6 [facility] Last Admin: 02/09/17 18:12 Dose: 200 mls/hr Acetaminophen (Ofirmev) 100 mls @ 400 mls/hr IV Q6H PRN PRN Reason: Pain, moderate (4-7) Stop: 02/09/17 19:07 Last Admin: 02/08/17 19:30 Dose: 400 mls/hr Insulin Human Regular (Novolin R) 0 unit SC ACHS [facility] PRN Reason: Protocol Last Admin: 02/09/17 18:13 Dose: 6 unit Metoprolol Tartrate (Lopressor) 50 mg PO BRK [facility] Last Admin: 02/09/17 10:45 Dose: Not Given Metoprolol Tartrate (Lopressor) 50 mg PO DIN [facility] Rosuvastatin Calcium (Crestor) 40 mg PO HS [facility] Last Admin: 02/08/17 21:39 Dose: 40 mg - Labs Labs: 02/09/17 06:17 02/09/17 06:17 PT 14.4 SECONDS (9.7-12.2) H 02/07/17 04:50 INR 1.3 02/07/17 04:50 APTT 69 SECONDS (21-34) H D 02/09/17 06:17 - Constitutional Appears: Well - Head Exam Head Exam: ATRAUMATIC, NORMAL INSPECTION, NORMOCEPHALIC - Eye Exam Eye Exam: EOMI, Normal appearance, PERRL Pupil Exam: NORMAL ACCOMODATION, PERRL - ENT Exam ENT Exam: Mucous Membranes Moist, Normal Exam - Neck Exam Neck Exam: Full ROM, Normal Inspection. absent: Lymphadenopathy - Respiratory Exam Respiratory Exam: Decreased Breath Sounds - Cardiovascular Exam Cardiovascular Exam: REGULAR RHYTHM, +S1, +S2 - GI/Abdominal Exam GI & Abdominal Exam: Soft, Diminished Bowel Sounds - Rectal Exam Rectal Exam: Deferred
[2017-02-09] MEDS ORDERED: Potassium Chloride 20 mEq ER Tab PO STA (19:38)
--- NOTE | 2017-02-09 20:01 | CARD ---
APPROVED REPORT EXAM: Transesophageal echocardiogram with color flow Doppler. INDICATION STROKE, CELLULITIS, TOE GANGRENE Mitral Valve E/A ratio0.0 TDI E/Lateral E'0.0E/Medial E'0.0 Reason For Test : Rule out cardiac source of emboli. PROCEDURE After obtaining informed consent, patient underwent transesophageal echo in the ICU/CCU. Type of Sedation : Conscious Sedation Sedation was administered by de. Sedation was achieved with 3 mg Versed and 100 mcg of fentanyl mcg intravenously. Transesophageal probe was inserted and advanced into esophagus without difficulty. The CAROLINA was performed without complications. Throughout the procedure, the blood pressure, pulse oximetry, cardiac rhythm, and rate were monitored. The patient tolerated the procedure without adverse effects. Recovery from conscious sedation was uneventful and vital signs were stable. LEFT VENTRICLE The left ventricle is normal size. There is normal left ventricular wall thickness. The left ventricular function is normal. The left ventricular ejection fraction is within the normal range. The Ejection Fraction is 60-65%. There is mild to moderate hypokinesis in the basal inferoseptal wall. No left ventricle thrombus noted on this study. There is no ventricular septal defect visualized. There is no left ventricular aneurysm. There is no mass noted in the left ventricle. RIGHT VENTRICLE The right ventricle is normal size. There is normal right ventricular wall thickness. The right ventricular systolic function is normal. ATRIA The left atrium is mildly dilated. The right atrium size is normal. The interatrial septum is intact with no evidence for an atrial septal defect. AORTIC VALVE The aortic valve is mildly to moderately sclerotic. No aortic regurgitation is present. There is no aortic valvular stenosis. There is no aortic valvular vegetation. MITRAL VALVE The mitral valve leaflets are thickened. There is no evidence of mitral valve prolapse. There is no mitral valve stenosis. Mitral regurgitation is mild to moderate. TRICUSPID VALVE The tricuspid valve is normal in structure. There is trace to mild tricuspid regurgitation. There is no tricuspid valve prolapse or vegetation. There is no tricuspid valve stenosis. PULMONIC VALVE The pulmonary valve is normal in structure. There is no pulmonic valvular regurgitation. There is no pulmonic valvular stenosis. GREAT VESSELS The aortic root is normal in size. Grade IV/V atheroma noted in the aortic arch The pulmonary artery is normal. The IVC was not visualized. PERICARDIAL EFFUSION There is no pericardial effusion. There is no pleural effusion. <Conclusion> The left ventricular function is normal. The left ventricular ejection fraction is within the normal range. The Ejection Fraction is 60-65%. 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
--- NOTE | 2017-02-09 21:37 | CP.PCM.PN ---
Subjective - Date & Time of Evaluation Date of Evaluation: 02/09/17 Time of Evaluation: 10:30 - Subjective Subjective: Podiatry Progress Note - Dr. Tariq: 71 y/o male patient seen at bedside POD#9 s/p partial amp of right great toe. Pt is verbalizing well and in good spirits. Pt reports mild pain to the right lower foot amputation site today. Denies f/n/v/c/sob/cp/weakness or dizziness today. Objective - Vital Signs/Intake and Output Vital Signs (last 24 hours): Temp Pulse Resp BP Pulse Ox 97.2 F L 78 20 170/67 H 99 02/09/17 15:00 02/09/17 17:00 02/09/17 15:00 02/09/17 21:25 02/09/17 15:00 Intake and Output: 02/09/17 02/10/17 18:59 06:59 Intake Total 1300 Output Total 1000 Balance 300 - Medications Medications: Current Medications Acetaminophen (Tylenol 325mg Tab) 650 mg PO Q8H PRN PRN Reason: Pain, Mild (1-3) Last Admin: 02/09/17 19:25 Dose: 650 mg Clopidogrel Bisulfate (Plavix) 75 mg PO DAILY [facility] Last Admin: 02/09/17 09:25 Dose: 75 mg Famotidine (Pepcid) 20 mg IVP DAILY [facility] Last Admin: 02/09/17 09:26 Dose: 20 mg Furosemide (Lasix) 40 mg IVP Q12 [facility] Last Admin: 02/09/17 21:25 Dose: 40 mg Heparin Sodium/Sodium Chloride (Heparin 68299 Units/250ml 1/2 Normal Saline) 25 ,000 units in 250 mls @ 15.24 mls/hr IV .[id number] PRN; Protocol; 12 UNITS/KG/HR PRN Reason: PROTOCOL Last Admin: 02/09/17 16:37 Dose: 14 units/kg/hr, 17.78 mls/hr Piperacillin Sod/Tazobactam (Sod 2.25 gm/ Sodium Chloride) 100 mls @ 200 mls/ hr IVPB Q6 [facility] Last Admin: 02/09/17 18:12 Dose: 200 mls/hr Insulin Human Regular (Novolin R) 0 unit SC ACHS [facility] PRN Reason: Protocol Last Admin: 02/09/17 21:25 Dose: 3 unit Metoprolol Tartrate (Lopressor) 50 mg PO BRK [facility] Last Admin: 02/09/17 10:45 Dose: Not Given Metoprolol Tartrate (Lopressor) 50 mg PO DIN [facility] Rosuvastatin Calcium (Crestor) 40 mg PO HS [facility] Last Admin: 02/09/17 21:25 Dose: 40 mg - Labs Labs: 02/09/17 06:17 02/09/17 06:17 PT 14.4 SECONDS (9.7-12.2) H 02/07/17 04:50 INR 1.3 02/07/17 04:50 APTT 69 SECONDS (21-34) H D 02/09/17 06:17 - Constitutional Appears: Well, Non-toxic, No Acute Distress - Extremities Exam Additional comments: Right foot focused. Dressing clean, dry, and intact . DERM: Right hallux amputation site visualized, plantar flap is undergoing ischemic changes, thcikness and robustness as markedly decreased. Ecchymotic presentation transitioning to necrotic areas. Flap is cool to touch, though remains stably adhered. All sutures remain intact, mild active serous drainage noted. Minor medial suture site dehiscience noted. No purulent drainage. VASC: SP and PT pulses graded 1/4. Mild non-pitting edema noted to right foot. Temperature runs warms to cool proximal to distal. NEURO: Protective sensation grossly diminished. - Neurological Exam Neurological Exam: Alert, Awake, Oriented x3 Assessment and Plan - Assessment and Plan (Free Text) Assessment: 71 yo male patient POD #9 partial amputation right hallux 2/2 diabetic neuropathy Plan: Pt seen and treated. Discussed in detail with attending, Dr. Tariq. Chart, labs, and vitals reviewed. Afebrile absent leukocytosis. Cleansed surgical site with peroxide, dressed with peroxide wet-to-dry dressing and DSD. Hallux amputation site grows more ischemic and plantar flap vascular compromise. Viability and healing potential at site an acute concern. Discussed with patient and that flap failure likely and pt is in trisha of revisional surgical intervention. c/w offloading boots bilaterally. c/w IV abx per ID Noted Acute CVA and NSTEM. Recommendation to avoid opioids acknowledged. Pt in need of revisional right hallux amputation. Tentatively scheduled for morning of 10/9/17. Medical clearance/ risk assessment -appreciated by Dr. Green Cardiac clearance appreciated by Dr. Jaimes. Podiatry will continue to follow patient while inhouse.
[2017-02-10] MEDS: Piperacillin/Tazobact 2.25 GM in Sodium Chloride 100 ML IVPB SCH ×4 (00:14→18:42)
[2017-02-10] MEDS: Heparin25000 units/250ml 1/2NS 25,000 UNITS/250 ML BAG IV PRN ×2 (05:54→15:25)
[2017-02-10 08:10] LABS: BASO % 0.4 % (0.0-2.0); EOS # 0.4 K/uL (0.0-0.7); EOS % 5.1 % (0.0-4.0); HEMATOCRIT 31.3 % (35.0-51.0); LYMPH # 1.2 K/uL (1.0-4.3); LYMPH % 15.4 % (20.0-40.0); MEAN CELL VOLUME 86.3 fL (80.0-94.0); MEAN CORPUSCULAR HEMOGLOBIN 28.8 pg (27.0-31.0); MEAN CORPUSCULAR HGB CONC 33.4 g/dL (33.0-37.0); MEAN PLATELET VOLUME 8.6 fL (7.2-11.7); MONO # 0.9 K/uL (0.0-0.8); MONO % 11.7 % (0.0-10.0); RED CELL DISTRIBUTION WIDTH 14.2 % (11.5-14.5); WHITE BLOOD COUNT 7.7 K/uL (4.8-10.8)
[2017-02-10 08:22] LABS: POTASSIUM 3.4 mmol/L (3.6-5.2)
[2017-02-10 08:25] LABS: ALB/GLOB RATIO 0.8 (1.0-2.1); BILIRUBIN,TOTAL 0.6 mg/dL (0.2-1.3); TOTAL PROTEIN 7.1 g/dL (6.3-8.3)
[2017-02-10 08:26] LABS: CALCIUM 8.9 mg/dl (8.6-10.4)
[2017-02-10] MEDS ORDERED: Heparin25000 units/250ml 1/2NS 25,000 UNITS/250 ML BAG IV PRN (08:31)
[2017-02-10] MEDS: (Novolin R) Insulin Human Regular 100 units/ml vial SC SCH ×4 (08:57→22:47)
--- NOTE | 2017-02-10 13:20 | CP.PCM.PN ---
Subjective - Date & Time of Evaluation Date of Evaluation: 02/10/17 Time of Evaluation: 13:19 - Subjective Subjective: pt seen by dr. venancio mason during rounds today. requesting cardiac clearance by dr. frar for surgery. 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 per dr. farr "i cannot clear pt; he has AMI and CVA." i made dr. venancio mason aware of this and per him he will contact dr. farr himself. no further orders. Objective - Vital Signs/Intake and Output Vital Signs (last 24 hours): Temp Pulse Resp BP Pulse Ox 98.3 F 75 18 167/79 H 96 02/10/17 07:20 02/10/17 08:56 02/10/17 07:20 02/10/17 08:56 02/10/17 07:20 Intake and Output: 02/10/17 02/10/17 06:59 18:59 Intake Total 812.6 Output Total 1300 Balance -487.4 - Medications Medications: Current Medications Acetaminophen (Tylenol 325mg Tab) 650 mg PO Q8H PRN PRN Reason: Pain, Mild (1-3) Last Admin: 02/10/17 12:12 Dose: 650 mg Clopidogrel Bisulfate (Plavix) 75 mg PO DAILY [facility] Last Admin: 02/10/17 09:25 Dose: 75 mg Famotidine (Pepcid) 20 mg IVP DAILY [facility] Last Admin: 02/10/17 09:25 Dose: 20 mg Furosemide (Lasix) 40 mg IVP Q12 [facility] Last Admin: 02/10/17 11:00 Dose: Not Given Piperacillin Sod/Tazobactam (Sod 2.25 gm/ Sodium Chloride) 100 mls @ 200 mls/ hr IVPB Q6 [facility] Last Admin: 02/10/17 12:15 Dose: 200 mls/hr Heparin Sodium/Sodium Chloride (Heparin 95602 Units/250ml 1/2 Normal Saline) 25 ,000 units in 250 mls @ 15.24 mls/hr IV .[id number] PRN; Protocol; 12 UNITS/KG/HR PRN Reason: PROTOCOL Last Admin: 02/10/17 08:30 Dose: 12 units/kg/hr, 15.24 mls/hr Potassium Chloride (Potassium Chloride 20 Meq/100 Ml) 20 meq in 100 mls @ 50 mls/hr IVPB ONCE ONE Stop: 02/10/17 14:12 Insulin Human Regular (Novolin R) 0 unit SC ACHS [facility] PRN Reason: Protocol Last Admin: 02/10/17 12:46 Dose: 8 unit Metoprolol Tartrate (Lopressor) 50 mg PO BRK [facility] Last Admin: 02/10/17 08:57 Dose: 50 mg Metoprolol Tartrate (Lopressor) 50 mg PO DIN [facility] Rosuvastatin Calcium (Crestor) 40 mg PO HS [facility] Last Admin: 02/09/17 21:25 Dose: 40 mg - Labs Labs: 02/10/17 07:55 02/10/17 07:55 PT 14.4 SECONDS (9.7-12.2) H 02/07/17 04:50 INR 1.3 02/07/17 04:50 APTT 100 SECONDS (21-34) H* D 02/10/17 07:55
--- NOTE | 2017-02-10 13:21 | CP.PCM.PN ---
Subjective - Date & Time of Evaluation Date of Evaluation: 02/10/17 Time of Evaluation: 13:17 - Subjective Subjective: Mr. Campo was seen and examined today at bedside with his family present. He appeared comfortable and was found in NAD. There were no acute events overnight. He complained of a 5/10 in severity occipital headache, but his right foot was in more pain. His BP was slightly elevated. Otherwise vital signs were normal. Objective - Vital Signs/Intake and Output Vital Signs (last 24 hours): Temp Pulse Resp BP Pulse Ox 98.3 F 75 18 167/79 H 96 02/10/17 07:20 02/10/17 08:56 02/10/17 07:20 02/10/17 08:56 02/10/17 07:20 Intake and Output: 02/10/17 02/10/17 06:59 18:59 Intake Total 812.6 Output Total 1300 Balance -487.4 - Medications Medications: Current Medications Acetaminophen (Tylenol 325mg Tab) 650 mg PO Q8H PRN PRN Reason: Pain, Mild (1-3) Last Admin: 02/10/17 12:12 Dose: 650 mg Clopidogrel Bisulfate (Plavix) 75 mg PO DAILY [facility] Last Admin: 02/10/17 09:25 Dose: 75 mg Famotidine (Pepcid) 20 mg IVP DAILY [facility] Last Admin: 02/10/17 09:25 Dose: 20 mg Furosemide (Lasix) 40 mg IVP Q12 [facility] Last Admin: 02/10/17 11:00 Dose: Not Given Piperacillin Sod/Tazobactam (Sod 2.25 gm/ Sodium Chloride) 100 mls @ 200 mls/ hr IVPB Q6 [facility] Last Admin: 02/10/17 12:15 Dose: 200 mls/hr Heparin Sodium/Sodium Chloride (Heparin 51133 Units/250ml 1/2 Normal Saline) 25 ,000 units in 250 mls @ 15.24 mls/hr IV .[id number] PRN; Protocol; 12 UNITS/KG/HR PRN Reason: PROTOCOL Last Admin: 02/10/17 08:30 Dose: 12 units/kg/hr, 15.24 mls/hr Potassium Chloride (Potassium Chloride 20 Meq/100 Ml) 20 meq in 100 mls @ 50 mls/hr IVPB ONCE ONE Stop: 02/10/17 14:12 Insulin Human Regular (Novolin R) 0 unit SC ACHS [facility] PRN Reason: Protocol Last Admin: 02/10/17 12:46 Dose: 8 unit Metoprolol Tartrate (Lopressor) 50 mg PO BRK [facility] Last Admin: 02/10/17 08:57 Dose: 50 mg Metoprolol Tartrate (Lopressor) 50 mg PO DIN [facility] Rosuvastatin Calcium (Crestor) 40 mg PO HS [facility] Last Admin: 02/09/17 21:25 Dose: 40 mg - Labs Labs: 02/10/17 07:55 02/10/17 07:55 PT 14.4 SECONDS (9.7-12.2) H 02/07/17 04:50 INR 1.3 02/07/17 04:50 APTT 100 SECONDS (21-34) H* D 02/10/17 07:55 - Neurological Exam Neurological Exam: Abnormal Gait, Alert, Awake, CN II-XII Intact, Oriented x3, Reflexes Normal Neuro motor strength exam: Left Upper Extremity: 4, Right Upper Extremity: 3, Left Lower Extremity: 4, Right Lower Extremity: 3 Assessment and Plan (1) Acute CVA (cerebrovascular accident) Assessment & Plan: Seems to be improving neurologically and is stable pulmonary trevizo. I do recommend obtaining the MRI of the brain and MRA of the head/neck without contrast now that he is more likely to be able to tolerate it. Continue heparin per cardiology. Repeat CT head without contrast if the patient's headache becomes more severe, he has change in mental status or neurological exam. Continue Q4 hour neuro-checks. PT/OT eval and treat. Status: Acute
--- NOTE | 2017-02-10 15:27 | CP.PCM.PN ---
Subjective - Date & Time of Evaluation Date of Evaluation: 02/10/17 Time of Evaluation: 10:40 - Subjective Subjective: clinically same Objective - Vital Signs/Intake and Output Vital Signs (last 24 hours): Temp Pulse Resp BP Pulse Ox 98.3 F 65 18 167/70 H 96 02/10/17 07:20 02/10/17 13:52 02/10/17 07:20 02/10/17 13:54 02/10/17 07:20 Intake and Output: 02/10/17 02/10/17 06:59 18:59 Intake Total 812.6 Output Total 1300 Balance -487.4 - Medications Medications: Current Medications Acetaminophen (Tylenol 325mg Tab) 650 mg PO Q8H PRN PRN Reason: Pain, Mild (1-3) Last Admin: 02/10/17 12:12 Dose: 650 mg Clopidogrel Bisulfate (Plavix) 75 mg PO DAILY [facility] Last Admin: 02/10/17 09:25 Dose: 75 mg Famotidine (Pepcid) 20 mg IVP DAILY [facility] Last Admin: 02/10/17 09:25 Dose: 20 mg Furosemide (Lasix) 40 mg IVP Q12 [facility] Last Admin: 02/10/17 13:54 Dose: 40 mg Piperacillin Sod/Tazobactam (Sod 2.25 gm/ Sodium Chloride) 100 mls @ 200 mls/ hr IVPB Q6 [facility] Last Admin: 02/10/17 12:15 Dose: 200 mls/hr Heparin Sodium/Sodium Chloride (Heparin 64163 Units/250ml 1/2 Normal Saline) 25 ,000 units in 250 mls @ 12.7 mls/hr IV .[id number] PRN; Protocol; 10 UNITS/KG/HR PRN Reason: PROTOCOL Last Admin: 02/10/17 15:25 Dose: 10 units/kg/hr, 12.7 mls/hr Insulin Human Regular (Novolin R) 0 unit SC ACHS [facility] PRN Reason: Protocol Last Admin: 02/10/17 12:46 Dose: 8 unit Metoprolol Tartrate (Lopressor) 50 mg PO BRK [facility] Last Admin: 02/10/17 08:57 Dose: 50 mg Metoprolol Tartrate (Lopressor) 50 mg PO DIN [facility] Potassium Chloride (Potassium Chloride Oral Soln) 20 meq PO DAILY [facility] Rosuvastatin Calcium (Crestor) 40 mg PO HS [facility] Last Admin: 02/09/17 21:25 Dose: 40 mg - Labs Labs: 02/10/17 07:55 02/10/17 07:55 PT 14.4 SECONDS (9.7-12.2) H 02/07/17 04:50 INR 1.3 02/07/17 04:50 APTT 97 SECONDS (21-34) H 02/10/17 14:41 - Constitutional Appears: Well - Head Exam Head Exam: ATRAUMATIC, NORMAL INSPECTION, NORMOCEPHALIC - Eye Exam Eye Exam: EOMI, Normal appearance, PERRL Pupil Exam: NORMAL ACCOMODATION, PERRL - ENT Exam ENT Exam: Mucous Membranes Moist, Normal Exam - Neck Exam Neck Exam: Full ROM, Normal Inspection. absent: Lymphadenopathy - Respiratory Exam Respiratory Exam: Decreased Breath Sounds - Cardiovascular Exam Cardiovascular Exam: REGULAR RHYTHM, +S1, +S2 - GI/Abdominal Exam GI & Abdominal Exam: Soft, Diminished Bowel Sounds - Rectal Exam Rectal Exam: Deferred
--- NOTE | 2017-02-10 15:55 | CP.PCM.PN ---
Subjective - Date & Time of Evaluation Date of Evaluation: 02/10/17 Time of Evaluation: 15:50 - Subjective Subjective: Podiatry Progress Note - Dr. Tariq: 71 y/o male patient seen at bedside POD# 10 s/p partial amp of right great toe. Patient is alert and awake and is in no acute distress. Patient states that he has mild pain to his right foot but is managing well with the medications. Patient denies of any F/N/V/C/SOB/CP today. Objective - Vital Signs/Intake and Output Vital Signs (last 24 hours): Temp Pulse Resp BP Pulse Ox 98.3 F 65 18 167/70 H 96 02/10/17 07:20 02/10/17 13:52 02/10/17 07:20 02/10/17 13:54 02/10/17 07:20 Intake and Output: 02/10/17 02/10/17 06:59 18:59 Intake Total 812.6 Output Total 1300 Balance -487.4 - Medications Medications: Current Medications Acetaminophen (Tylenol 325mg Tab) 650 mg PO Q8H PRN PRN Reason: Pain, Mild (1-3) Last Admin: 02/10/17 12:12 Dose: 650 mg Clopidogrel Bisulfate (Plavix) 75 mg PO DAILY [facility] Last Admin: 02/10/17 09:25 Dose: 75 mg Famotidine (Pepcid) 20 mg IVP DAILY [facility] Last Admin: 02/10/17 09:25 Dose: 20 mg Furosemide (Lasix) 40 mg IVP Q12 [facility] Last Admin: 02/10/17 13:54 Dose: 40 mg Piperacillin Sod/Tazobactam (Sod 2.25 gm/ Sodium Chloride) 100 mls @ 200 mls/ hr IVPB Q6 [facility] Last Admin: 02/10/17 12:15 Dose: 200 mls/hr Heparin Sodium/Sodium Chloride (Heparin 27254 Units/250ml 1/2 Normal Saline) 25 ,000 units in 250 mls @ 12.7 mls/hr IV .[id number] PRN; Protocol; 10 UNITS/KG/HR PRN Reason: PROTOCOL Last Admin: 02/10/17 15:25 Dose: 10 units/kg/hr, 12.7 mls/hr Insulin Human Regular (Novolin R) 0 unit SC ACHS [facility] PRN Reason: Protocol Last Admin: 02/10/17 12:46 Dose: 8 unit Metoprolol Tartrate (Lopressor) 50 mg PO BRK [facility] Last Admin: 02/10/17 08:57 Dose: 50 mg Metoprolol Tartrate (Lopressor) 50 mg PO DIN [facility] Potassium Chloride (Potassium Chloride Oral Soln) 20 meq PO DAILY [facility] Rosuvastatin Calcium (Crestor) 40 mg PO HS [facility] Last Admin: 02/09/17 21:25 Dose: 40 mg - Labs Labs: 02/10/17 07:55 02/10/17 07:55 PT 14.4 SECONDS (9.7-12.2) H 02/07/17 04:50 INR 1.3 02/07/17 04:50 APTT 97 SECONDS (21-34) H 02/10/17 14:41 - Constitutional Appears: Well, Non-toxic, No Acute Distress - Extremities Exam Additional comments: Right foot focused. Dressing clean, dry, and intact . VASC: DP and PT pulses are palpable 1/4. Mild non-pitting edema noted to right foot. Temperature gradient is warms to cool proximal to distal. DERM: Right hallux amputation site visualized, plantar flap is undergoing ischemic changes, thickness and robustness as markedly decreased. Ecchymotic presentation transitioning to necrotic areas. Flap is cool to touch, though remains stably adhered. All sutures remain intact, no active serous drainage noted. Minor medial suture site dehiscience noted. No purulent drainage. NEURO: Protective sensation grossly diminished. - Neurological Exam Neurological Exam: Alert, Awake, Oriented x3 - Psychiatric Exam Psychiatric exam: Normal Affect, Normal Mood Assessment and Plan - Assessment and Plan (Free Text) Assessment: 71 yo male patient POD # 10 partial amputation right hallux 2/2 diabetic neuropathy Plan: Patient is seen and evaluated at bedside Discussed in detail with attending, Dr. Tariq. Chart, labs, and vitals reviewed. Afebrile WBC @ 7.7 Cleansed surgical site with peroxide, dressed with peroxide wet-to-dry dressing and DSD. Hallux amputation site grows more ischemic and plantar flap vascular compromise. Viability and healing potential at site an acute concern. Discussed with patient and that flap failure likely and pt is in trisha of revisional surgical intervention. c/w offloading boots bilaterally. c/w IV abx per ID Noted Acute CVA and NSTEM. Recommendation to avoid opioids acknowledged. Pt in need of revisional right hallux amputation. Tentatively scheduled for morning of 02/12/17. Medical clearance/ risk assessment -appreciated by Dr. Green Cardiac clearance appreciated by Dr. Jaimes. Spoke to Dr. Green to for Cardiac clearance for possible revisional right hallux amputation. Dr. Green to speak to Dr. Jaimes regarding this matter. Podiatry will continue to follow patient while inhouse.
[2017-02-11] MEDS: Piperacillin/Tazobact 2.25 GM in Sodium Chloride 100 ML IVPB SCH ×5 (00:32→23:20)
[2017-02-11] MEDS: Heparin25000 units/250ml 1/2NS 25,000 UNITS/250 ML BAG IV PRN ×2 (01:04→23:28)
[2017-02-11 07:20] LABS: BASO % 0.4 % (0.0-2.0); EOS # 0.4 K/uL (0.0-0.7); EOS % 5.1 % (0.0-4.0); HEMATOCRIT 30.7 % (35.0-51.0); LYMPH # 1.7 K/uL (1.0-4.3); LYMPH % 19.7 % (20.0-40.0); MEAN CELL VOLUME 86.6 fL (80.0-94.0); MEAN CORPUSCULAR HEMOGLOBIN 28.4 pg (27.0-31.0); MEAN CORPUSCULAR HGB CONC 32.8 g/dL (33.0-37.0); MEAN PLATELET VOLUME 8.8 fL (7.2-11.7); MONO % 11.3 % (0.0-10.0); NRBC % 0.1 % (0.0-2.0); RED CELL DISTRIBUTION WIDTH 14.1 % (11.5-14.5); WHITE BLOOD COUNT 8.5 K/uL (4.8-10.8)
[2017-02-11 07:28] LABS: INR 1.2
[2017-02-11 07:54] LABS: POTASSIUM 2.9 mmol/L (3.6-5.2)
[2017-02-11 07:56] LABS: ALB/GLOB RATIO 0.7 (1.0-2.1); BILIRUBIN,TOTAL 0.5 mg/dL (0.2-1.3); TOTAL PROTEIN 7.2 g/dL (6.3-8.3)
[2017-02-11 07:57] LABS: CALCIUM 8.9 mg/dl (8.6-10.4)
[2017-02-11] MEDS: (Novolin R) Insulin Human Regular 100 units/ml vial SC SCH ×4 (08:31→23:20)
[2017-02-11] MEDS ORDERED: Potassium Chloride 20 mEq/15 ml LIQ UD PO SCH (10:00)
[2017-02-11] MEDS: Potassium Chloride 20 mEq/15 ml LIQ UD PO SCH (10:25)
[2017-02-11 10:27] LABS: TROPONIN I 0.095 ng/mL (0.00-0.120)
--- NOTE | 2017-02-11 11:21 | CP.PCM.PN ---
Subjective - Date & Time of Evaluation Date of Evaluation: 02/11/17 Time of Evaluation: 10:00 - Subjective Subjective: clinically same Objective - Vital Signs/Intake and Output Vital Signs (last 24 hours): Temp Pulse Resp BP Pulse Ox 98.6 F 85 20 164/89 H 97 02/11/17 07:37 02/11/17 08:31 02/11/17 07:37 02/11/17 08:31 02/11/17 07:37 Intake and Output: 02/11/17 02/11/17 06:59 18:59 Intake Total 550 Balance 550 - Medications Medications: Current Medications Clopidogrel Bisulfate (Plavix) 75 mg PO DAILY [facility] Last Admin: 02/11/17 10:24 Dose: 75 mg Famotidine (Pepcid) 20 mg IVP DAILY [facility] Last Admin: 02/11/17 10:24 Dose: 20 mg Furosemide (Lasix) 40 mg IVP Q12 [facility] Last Admin: 02/11/17 10:09 Dose: Not Given Piperacillin Sod/Tazobactam (Sod 2.25 gm/ Sodium Chloride) 100 mls @ 200 mls/ hr IVPB Q6 [facility] Last Admin: 02/11/17 06:35 Dose: 200 mls/hr Heparin Sodium/Sodium Chloride (Heparin 31130 Units/250ml 1/2 Normal Saline) 25 ,000 units in 250 mls @ 12.7 mls/hr IV .[id number] PRN; Protocol; 10 UNITS/KG/HR PRN Reason: PROTOCOL Last Admin: 02/11/17 01:04 Dose: 10 units/kg/hr, 12.7 mls/hr Potassium Chloride (Potassium Chloride 20 Meq/100 Ml) 20 meq in 100 mls @ 50 mls/hr IVPB ONCE ONE Stop: 02/11/17 12:06 Last Admin: 02/11/17 10:24 Dose: 50 mls/hr Potassium Chloride (Potassium Chloride 20 Meq/100 Ml) 20 meq in 100 mls @ 50 mls/hr IVPB ONCE ONE Stop: 02/11/17 15:29 Potassium Chloride (Potassium Chloride 20 Meq/100 Ml) 20 meq in 100 mls @ 50 mls/hr IVPB ONCE ONE Stop: 02/11/17 17:29 Insulin Human Regular (Novolin R) 0 unit SC ACHS [facility] PRN Reason: Protocol Last Admin: 02/11/17 08:31 Dose: 6 unit Metoprolol Tartrate (Lopressor) 50 mg PO BRK [facility] Last Admin: 02/11/17 08:32 Dose: 50 mg Metoprolol Tartrate (Lopressor) 50 mg PO DIN [facility] Potassium Chloride (Potassium Chloride Oral Soln) 20 meq PO DAILY [facility] Last Admin: 02/11/17 10:25 Dose: 20 meq Rosuvastatin Calcium (Crestor) 40 mg PO HS [facility] Last Admin: 02/10/17 22:47 Dose: 40 mg - Labs Labs: 02/11/17 07:14 02/11/17 07:14 PT 13.1 SECONDS (9.7-12.2) H 02/11/17 07:14 INR 1.2 02/11/17 07:14 APTT 68 SECONDS (21-34) H 02/11/17 08:55 - Constitutional Appears: Well - Head Exam Head Exam: ATRAUMATIC, NORMAL INSPECTION, NORMOCEPHALIC - Eye Exam Eye Exam: EOMI, Normal appearance, PERRL Pupil Exam: NORMAL ACCOMODATION, PERRL - ENT Exam ENT Exam: Mucous Membranes Moist, Normal Exam - Neck Exam Neck Exam: Full ROM, Normal Inspection. absent: Lymphadenopathy - Respiratory Exam Respiratory Exam: Decreased Breath Sounds - Cardiovascular Exam Cardiovascular Exam: REGULAR RHYTHM, +S1, +S2 - GI/Abdominal Exam GI & Abdominal Exam: Soft, Diminished Bowel Sounds - Rectal Exam Rectal Exam: Deferred
--- NOTE | 2017-02-11 13:17 | CP.PCM.PN ---
Subjective - Date & Time of Evaluation Date of Evaluation: 02/11/17 Time of Evaluation: 13:14 - Subjective Subjective: Podiatry Progress Note - Dr. Tariq: 71 y/o male patient seen at bedside POD# 11 s/p partial amp of right great toe. Patient is alert and awake and is in no acute distress. Patient states that he has mild pain to his right foot but is managing well with the medications. Patient denies of any F/N/V/C/SOB/CP today. Patient is eager to go home. Patient denies of any other pedal complains at this time. Objective - Vital Signs/Intake and Output Vital Signs (last 24 hours): Temp Pulse Resp BP Pulse Ox 98.6 F 85 20 164/89 H 97 02/11/17 07:37 02/11/17 08:31 02/11/17 07:37 02/11/17 08:31 02/11/17 07:37 Intake and Output: 02/11/17 02/11/17 06:59 18:59 Intake Total 550 Balance 550 - Medications Medications: Current Medications Acetaminophen (Tylenol 325mg Tab) 650 mg PO Q8 PRN PRN Reason: Pain Clopidogrel Bisulfate (Plavix) 75 mg PO DAILY [facility] Last Admin: 02/11/17 10:24 Dose: 75 mg Famotidine (Pepcid) 20 mg IVP DAILY [facility] Last Admin: 02/11/17 10:24 Dose: 20 mg Furosemide (Lasix) 40 mg IVP Q12 [facility] Last Admin: 02/11/17 10:09 Dose: Not Given Piperacillin Sod/Tazobactam (Sod 2.25 gm/ Sodium Chloride) 100 mls @ 200 mls/ hr IVPB Q6 [facility] Last Admin: 02/11/17 13:00 Dose: 200 mls/hr Heparin Sodium/Sodium Chloride (Heparin 97976 Units/250ml 1/2 Normal Saline) 25 ,000 units in 250 mls @ 12.7 mls/hr IV .[id number] PRN; Protocol; 10 UNITS/KG/HR PRN Reason: PROTOCOL Last Admin: 02/11/17 01:04 Dose: 10 units/kg/hr, 12.7 mls/hr Potassium Chloride (Potassium Chloride 20 Meq/100 Ml) 20 meq in 100 mls @ 50 mls/hr IVPB ONCE ONE Stop: 02/11/17 15:29 Potassium Chloride (Potassium Chloride 20 Meq/100 Ml) 20 meq in 100 mls @ 50 mls/hr IVPB ONCE ONE Stop: 02/11/17 17:29 Insulin Human Regular (Novolin R) 0 unit SC ACHS [facility] PRN Reason: Protocol Last Admin: 02/11/17 12:58 Dose: 8 unit Lactulose (Enulose) 20 gm PO BID [facility] Metoprolol Tartrate (Lopressor) 50 mg PO BRK [facility] Last Admin: 02/11/17 08:32 Dose: 50 mg Metoprolol Tartrate (Lopressor) 50 mg PO DIN [facility] Potassium Chloride (Potassium Chloride Oral Soln) 20 meq PO DAILY [facility] Last Admin: 02/11/17 10:25 Dose: 20 meq Rosuvastatin Calcium (Crestor) 40 mg PO HS [facility] Last Admin: 02/10/17 22:47 Dose: 40 mg - Labs Labs: 02/11/17 07:14 02/11/17 07:14 PT 13.1 SECONDS (9.7-12.2) H 02/11/17 07:14 INR 1.2 02/11/17 07:14 APTT 68 SECONDS (21-34) H 02/11/17 08:55 - Constitutional Appears: Well, Non-toxic, No Acute Distress - Extremities Exam Additional comments: Right foot focused. Dressing clean, dry, and intact . VASC: DP and PT pulses are palpable 1/4. Mild non-pitting edema noted to right foot. Temperature gradient is warms to cool proximal to distal. DERM: Right hallux amputation site visualized, plantar flap is undergoing ischemic changes, thickness and robustness as markedly decreased. Ecchymotic presentation transitioning to necrotic areas. Flap is cool to touch, though remains stably adhered. All sutures remain intact, no active serous drainage noted. Minor medial suture site dehiscience noted. No purulent drainage. NEURO: Protective sensation grossly diminished. ORTHO: Mild tenderness on palpation of the surgical site - Neurological Exam Neurological Exam: Alert, Awake, Oriented x3 - Psychiatric Exam Psychiatric exam: Normal Affect, Normal Mood Assessment and Plan - Assessment and Plan (Free Text) Assessment: 71 yo male patient POD # 11 partial amputation right hallux 2/2 diabetic neuropathy Plan: Patient is seen and evaluated at bedside Discussed in detail with attending, Dr. Tariq. Chart, labs, and vitals reviewed. Afebrile WBC @ 8.5 Cleansed surgical site with peroxide, dressed with peroxide wet-to-dry dressing and DSD. Hallux amputation site grows more ischemic and plantar flap vascular compromise. Viability and healing potential at site an acute concern. Discussed with patient and that flap failure likely and pt is in need of revisional surgical intervention. c/w offloading boots bilaterally. c/w IV abx per ID Noted Acute CVA and NSTEM. Recommendation to avoid opioids acknowledged. Pt in need of revisional right hallux amputation. Tentatively scheduled for morning of 02/12/17. Medical clearance/ risk assessment -appreciated by Dr. Green Cardiac clearance appreciated by Dr. Jaimes. - Spoke to Dr. Green for Cardiac clearance for possible revisional right hallux amputation. Dr. Green to speak to Dr. Jaimes regarding this matter. Podiatry will continue to follow patient while inhouse.
--- NOTE | 2017-02-11 16:59 | CP.PCM.PN ---
Subjective - Date & Time of Evaluation Date of Evaluation: 02/11/17 Time of Evaluation: 08:00 - Subjective Subjective: POD# 11 s/p partial amp of right great toe. Patient is alert and awake and is in no acute distress. Objective - Vital Signs/Intake and Output Vital Signs (last 24 hours): Temp Pulse Resp BP Pulse Ox 98.0 F 64 20 189/91 H 98 02/11/17 16:15 02/11/17 16:15 02/11/17 16:15 02/11/17 16:15 02/11/17 16:15 Intake and Output: 02/11/17 02/11/17 06:59 18:59 Intake Total 550 675 Balance 550 675 - Medications Medications: Current Medications Acetaminophen (Tylenol 325mg Tab) 650 mg PO Q8 PRN PRN Reason: Pain Last Admin: 02/11/17 13:57 Dose: 650 mg Clopidogrel Bisulfate (Plavix) 75 mg PO DAILY [facility] Last Admin: 02/11/17 10:24 Dose: 75 mg Famotidine (Pepcid) 20 mg IVP DAILY [facility] Last Admin: 02/11/17 10:24 Dose: 20 mg Furosemide (Lasix) 40 mg IVP Q12 [facility] Last Admin: 02/11/17 10:09 Dose: Not Given Piperacillin Sod/Tazobactam (Sod 2.25 gm/ Sodium Chloride) 100 mls @ 200 mls/ hr IVPB Q6 [facility] Last Admin: 02/11/17 13:00 Dose: 200 mls/hr Heparin Sodium/Sodium Chloride (Heparin 27069 Units/250ml 1/2 Normal Saline) 25 ,000 units in 250 mls @ 12.7 mls/hr IV .[id number] PRN; Protocol; 10 UNITS/KG/HR PRN Reason: PROTOCOL Last Admin: 02/11/17 01:04 Dose: 10 units/kg/hr, 12.7 mls/hr Potassium Chloride (Potassium Chloride 20 Meq/100 Ml) 20 meq in 100 mls @ 50 mls/hr IVPB ONCE ONE Stop: 02/11/17 17:29 Insulin Human Regular (Novolin R) 0 unit SC ACHS [facility] PRN Reason: Protocol Last Admin: 02/11/17 12:58 Dose: 8 unit Lactulose (Enulose) 20 gm PO BID [facility] Metoprolol Tartrate (Lopressor) 50 mg PO BRK [facility] Last Admin: 02/11/17 08:32 Dose: 50 mg Metoprolol Tartrate (Lopressor) 50 mg PO DIN [facility] Potassium Chloride (Potassium Chloride Oral Soln) 20 meq PO DAILY [facility] Last Admin: 02/11/17 10:25 Dose: 20 meq Rosuvastatin Calcium (Crestor) 40 mg PO HS [facility] Last Admin: 02/10/17 22:47 Dose: 40 mg - Labs Labs: 02/11/17 07:14 02/11/17 07:14 PT 13.1 SECONDS (9.7-12.2) H 02/11/17 07:14 INR 1.2 02/11/17 07:14 APTT 68 SECONDS (21-34) H 02/11/17 08:55 - Constitutional Appears: Non-toxic, Chronically Ill - Head Exam Head Exam: NORMOCEPHALIC - Eye Exam Eye Exam: PERRL. absent: Scleral icterus - ENT Exam ENT Exam: Mucous Membranes Dry, Normal External Ear Exam - Neck Exam Neck Exam: absent: Lymphadenopathy - Respiratory Exam Respiratory Exam: Decreased Breath Sounds - Cardiovascular Exam Cardiovascular Exam: REGULAR RHYTHM - GI/Abdominal Exam GI & Abdominal Exam: Distended, Soft - Rectal Exam Rectal Exam: Deferred - Exam Exam: NORMAL INSPECTION - Extremities Exam Extremities Exam: absent: Calf Tenderness, Pedal Edema, Tenderness - Back Exam Back Exam: absent: CVA tenderness (L), CVA tenderness (R) - Neurological Exam Neurological Exam: Alert, Awake, Oriented x3 - Psychiatric Exam Psychiatric exam: Depressed - Skin Skin Exam: Dry Assessment and Plan (1) Cellulitis Status: Acute (2) Osteomyelitis Status: Acute (3) Toe gangrene Status: Acute (4) Abscess of great toe Status: Acute (5) Diabetes mellitus Status: Chronic - Assessment and Plan (Free Text) Plan: cont iv rx wound care s/p amputation
--- NOTE | 2017-02-11 21:54 | CP.PCM.CON ---
History of Present Illness - History of Present Illness History of Present Illness: Asked by Dr. Green for a GI consultation on this patient. 71 year old male with history of DM, HTN, hyperlipidemia, CVA, PVD who initially presented to hospital on 01/30 for evaluation and treatment of RLE gangrenous toes. He has since undergone amputation of right hallux and is receiving wound care. GI called for evaluation of worsening constipation. While at home, he would typically have a bowel movement every other day but for the past two weeks he has not had a proper bowel movement. Just yesterday he had a large normal bowel movement. Prior to this he was endorsing abdominal pain but denies nausea , vomiting, fever/chills, weight loss, or rectal bleeding. He had a colonoscopy 4 years ago at [facility] [place] which was normal as per patient. Social history: non-smoker, no ETOH use Family history: denies history of colon cancer Review of Systems - Review of Systems Review of Systems: - All other comprehensive 12 point review of systems performed, negative - Cardiovascular Cardiovascular: absent: Acrocyanosis, Chest Pain, Chest Pain at Rest, Chest Pain with Activity, Claudication, Diaphoresis, Dyspnea, Dyspnea on Exertion, Edema, Irregular Heart Rhythm, Pain Radiating to Arm/Neck/Jaw, Leg Edema, Leg Ulcers, Lightheadedness, Orthopnea, Palpitations, Paroxysmal Nocturnal Dyspnea, Pedal Edema, Radiating Pain, Rapid Heart Rate, Slow Heart Rate, Syncope, Other - Respiratory Respiratory: absent: Cough, Dyspnea, Hemoptysis, Dyspnea on Exertion, Wheezing, Snoring, Stridor, Pain on Inspiration, Chest Congestion, Excessive Mucous Production, Change in Mucous Color, Pain with Coughing, Other - Gastrointestinal Gastrointestinal: Constipation - Musculoskeletal Musculoskeletal: Radiating Pain into Limb - Neurological Neurological: absent: Abnormal Gait, Abnormal Hearing, Abnormal Movements, Abnormal Speech, Behavioral Changes, Burning Sensations, Confusion, Convulsions , Disequilibrium, Dizziness, Numbness, Focal Weakness, Frequent Falls, Headaches , Lack of Coordination, Loss of Vision, Memory Loss, Paresthesias, Radicular Pain, Restless Legs, Sensory Deficit, Syncope, Tingling, Tremor, Vertigo, Weakness, Other Visual Disturbances, Other Past Patient History - Infectious Disease Hx of Infectious Diseases: None - Past Medical History & Family History Past Medical History?: Yes - Past Social History Smoking Status: Never Smoked - CARDIAC Hx Cardiac Disorders: Yes (CAD) Hx Hypertension: Yes - PULMONARY Hx Respiratory Disorders: No - NEUROLOGICAL HX Cerebrovascular Accident: Yes (x3) - HEENT Hx HEENT Problems: Yes Hx Cataracts: Yes (BILAT) - RENAL Hx Chronic Kidney Disease: No - ENDOCRINE/METABOLIC Hx Diabetes Mellitus Type 2: Yes - HEMATOLOGICAL/ONCOLOGICAL Hx Blood Disorders: No - INTEGUMENTARY Hx Dermatological Problems: No - MUSCULOSKELETAL/RHEUMATOLOGICAL Hx Arthritis: Yes - GASTROINTESTINAL Hx Gastrointestinal Disorders: No - GENITOURINARY/GYNECOLOGICAL Hx Genitourinary Disorders: Yes Hx Prostate Cancer: Yes (per md) - PSYCHIATRIC Hx Substance Use: No - SURGICAL HISTORY Hx Surgeries: Yes Hx Cataract Extraction: Yes (bilat) Other/Comment: I/D RECTAL ABSCESS X 2 - ANESTHESIA Hx Anesthesia: Yes Hx Anesthesia Reactions: No Hx Malignant Hyperthermia: No Meds Allergies/Adverse Reactions: Allergies Allergy/AdvReac Type Severity Reaction Status Date / Time No Known Allergies Allergy Verified 01/30/17 06:57 - Medications Medications: Current Medications Acetaminophen (Tylenol 325mg Tab) 650 mg PO Q8 PRN PRN Reason: Pain Last Admin: 02/11/17 13:57 Dose: 650 mg Clopidogrel Bisulfate (Plavix) 75 mg PO DAILY [facility] Last Admin: 02/11/17 10:24 Dose: 75 mg Famotidine (Pepcid) 20 mg IVP DAILY [facility] Last Admin: 02/11/17 10:24 Dose: 20 mg Furosemide (Lasix) 40 mg IVP Q12 [facility] Last Admin: 02/11/17 10:09 Dose: Not Given Piperacillin Sod/Tazobactam (Sod 2.25 gm/ Sodium Chloride) 100 mls @ 200 mls/ hr IVPB Q6 [facility] Last Admin: 02/11/17 18:52 Dose: 200 mls/hr Heparin Sodium/Sodium Chloride (Heparin 28331 Units/250ml 1/2 Normal Saline) 25 ,000 units in 250 mls @ 12.7 mls/hr IV .[id number] PRN; Protocol; 10 UNITS/KG/HR PRN Reason: PROTOCOL Last Admin: 02/11/17 01:04 Dose: 10 units/kg/hr, 12.7 mls/hr Insulin Human Regular (Novolin R) 0 unit SC ACHS [facility] PRN Reason: Protocol Last Admin: 02/11/17 18:07 Dose: 8 unit Lactulose (Enulose) 20 gm PO BID [facility] Last Admin: 02/11/17 18:07 Dose: 20 gm Metoprolol Tartrate (Lopressor) 50 mg PO BRK [facility] Last Admin: 02/11/17 08:32 Dose: 50 mg Metoprolol Tartrate (Lopressor) 50 mg PO DIN [facility] Potassium Chloride (Potassium Chloride Oral Soln) 20 meq PO DAILY [facility] Last Admin: 02/11/17 10:25 Dose: 20 meq Rosuvastatin Calcium (Crestor) 40 mg PO HS [facility] Last Admin: 02/10/17 22:47 Dose: 40 mg Physical Exam - Constitutional Appears: Non-toxic, No Acute Distress - Head Exam Head Exam: NORMAL INSPECTION - Eye Exam Eye Exam: EOMI, Normal appearance - ENT Exam ENT Exam: Mucous Membranes Moist - Respiratory Exam Respiratory Exam: Clear to Auscultation Bilateral - Cardiovascular Exam Cardiovascular Exam: REGULAR RHYTHM, +S1, +S2, Systolic Murmur - GI/Abdominal Exam GI & Abdominal Exam: Normal Bowel Sounds, Soft Additional comments: non tender to palpation in four quadrants no palpable hepato/splenomegaly - Extremities Exam Additional comments: RLE wound dressing intact - Neurological Exam Neurological exam: Alert, CN II-XII Intact, Oriented x3, Reflexes Normal - Psychiatric Exam Psychiatric exam: Normal Affect, Normal Mood - Skin Skin Exam: Dry, Intact, Normal Color, Warm Results - Vital Signs Recent Vital Signs: Last Vital Signs Temp 98.0 F 02/11/17 16:15 Pulse 68 02/11/17 18:06 Resp 20 02/11/17 16:15 BP 166/88 H 02/11/17 18:06 Pulse Ox 98 02/11/17 16:15 - Labs Result Diagrams: 02/11/17 07:14 02/11/17 07:14 Labs: Laboratory Results - last 24 hr 02/11/17 02/11/17 02/11/17 02:03 02:50 06:37 WBC RBC Hgb Hct MCV MCH MCHC RDW Plt Count MPV Neut % (Auto) Lymph % (Auto) [place] % (Auto) Eos % (Auto) Baso % (Auto) Neut # Lymph # [place] # Eos # Baso # PT INR APTT 71 H D Sodium Potassium Chloride Carbon Dioxide Anion Gap BUN Creatinine Est GFR ( Amer) Est GFR (Non-Af Amer) POC Glucose (mg/dL) 305 H 306 H Random Glucose Calcium Total Bilirubin AST ALT Alkaline Phosphatase Troponin I NT-Pro-B Natriuret Pep Total Protein Albumin Globulin Albumin/Globulin Ratio 02/11/17 02/11/17 02/11/17 07:14 07:14 07:14 WBC 8.5 RBC 3.54 L Hgb 10.1 L Hct 30.7 L MCV 86.6 MCH 28.4 MCHC 32.8 L RDW 14.1 Plt Count 264 MPV 8.8 Neut % (Auto) 63.5 Lymph % (Auto) 19.7 L [place] % (Auto) 11.3 H Eos % (Auto) 5.1 H Baso % (Auto) 0.4 Neut # 5.4 Lymph # 1.7 [place] # 1.0 H Eos # 0.4 Baso # 0.0 PT 13.1 H INR 1.2 APTT Sodium 136 Potassium 2.9 L Chloride 95 L Carbon Dioxide 29 Anion Gap 15 BUN 26 H Creatinine 2.0 H Est GFR ( Amer) 40 Est GFR (Non-Af Amer) 33 POC Glucose (mg/dL) Random Glucose 258 H Calcium 8.9 Total Bilirubin 0.5 AST 23 ALT 29 Alkaline Phosphatase 76 Troponin I NT-Pro-B Natriuret Pep Total Protein 7.2 Albumin 3.0 L Globulin 4.2 H Albumin/Globulin Ratio 0.7 L 02/11/17 02/11/17 02/11/17 08:55 09:57 11:30 WBC RBC Hgb Hct MCV MCH MCHC RDW Plt Count MPV Neut % (Auto) Lymph % (Auto) [place] % (Auto) Eos % (Auto) Baso % (Auto) Neut # Lymph # [place] # Eos # Baso # PT INR APTT 68 H Sodium Potassium Chloride Carbon Dioxide Anion Gap BUN Creatinine Est GFR ( Amer) Est GFR (Non-Af Amer) POC Glucose (mg/dL) 386 H Random Glucose Calcium Total Bilirubin AST ALT Alkaline Phosphatase Troponin I 0.0950 NT-Pro-B Natriuret Pep 6550 H Total Protein Albumin Globulin Albumin/Globulin Ratio 02/11/17 16:42 WBC RBC Hgb Hct MCV MCH MCHC RDW Plt Count MPV Neut % (Auto) Lymph % (Auto) [place] % (Auto) Eos % (Auto) Baso % (Auto) Neut # Lymph # [place] # Eos # Baso # PT INR APTT Sodium Potassium Chloride Carbon Dioxide Anion Gap BUN Creatinine Est GFR ( Amer) Est GFR (Non-Af Amer) POC Glucose (mg/dL) 381 H Random Glucose Calcium Total Bilirubin AST ALT Alkaline Phosphatase Troponin I NT-Pro-B Natriuret Pep Total Protein Albumin Globulin Albumin/Globulin Ratio Assessment & Plan - Assessment and Plan (Free Text) Assessment: HTN / DM PVD Hyperlipidemia 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 Suggest additional outpatient follow up after resolution of acute medical issues. Please reconsult as necessary, thank you.
[2017-02-11 22:27] LABS: POTASSIUM 3.7 mmol/L (3.6-5.2)
[2017-02-11 22:30] LABS: CALCIUM 8.7 mg/dl (8.6-10.4)
[2017-02-12 05:23] LABS: BASO % 0.3 % (0.0-2.0); EOS # 0.3 K/uL (0.0-0.7); EOS % 3.6 % (0.0-4.0); HEMATOCRIT 31.4 % (35.0-51.0); LYMPH # 2.1 K/uL (1.0-4.3); LYMPH % 21.7 % (20.0-40.0); MEAN CELL VOLUME 85.9 fL (80.0-94.0); MEAN CORPUSCULAR HEMOGLOBIN 29.1 pg (27.0-31.0); MEAN CORPUSCULAR HGB CONC 33.9 g/dL (33.0-37.0); MEAN PLATELET VOLUME 8.9 fL (7.2-11.7); MONO % 10.6 % (0.0-10.0); RED CELL DISTRIBUTION WIDTH 14.1 % (11.5-14.5); WHITE BLOOD COUNT 9.6 K/uL (4.8-10.8)
[2017-02-12 05:41] LABS: POTASSIUM 3.2 mmol/L (3.6-5.2)
[2017-02-12 05:43] LABS: BILIRUBIN,TOTAL 0.4 mg/dL (0.2-1.3)
[2017-02-12 05:44] LABS: ALB/GLOB RATIO 0.7 (1.0-2.1); CALCIUM 9.3 mg/dl (8.6-10.4); TOTAL PROTEIN 7.3 g/dL (6.3-8.3)
[2017-02-12] MEDS: Piperacillin/Tazobact 2.25 GM in Sodium Chloride 100 ML IVPB SCH ×2 (07:15→12:53)
--- NOTE | 2017-02-12 08:21 | CP.PCM.PN ---
Subjective - Date & Time of Evaluation Date of Evaluation: 02/12/17 Time of Evaluation: 08:17 - Subjective Subjective: Mr. Campo was seen and examined at the bedside. He is alert, oriented in all spheres. He denies any headache, dizziness, blurry vision, nausea, or vomiting. There was no untoward events overnight. Objective - Vital Signs/Intake and Output Vital Signs (last 24 hours): Temp Pulse Resp BP Pulse Ox 97.7 F 70 18 163/77 H 98 02/12/17 07:00 02/12/17 07:00 02/12/17 07:00 02/12/17 07:00 02/12/17 07:00 Intake and Output: 02/12/17 02/12/17 06:59 18:59 Intake Total 250 Output Total 300 Balance -50 - Medications Medications: Current Medications Acetaminophen (Tylenol 325mg Tab) 650 mg PO Q8 PRN PRN Reason: Pain Last Admin: 02/12/17 04:29 Dose: 650 mg Clopidogrel Bisulfate (Plavix) 75 mg PO DAILY [facility] Last Admin: 02/11/17 10:24 Dose: 75 mg Famotidine (Pepcid) 20 mg IVP DAILY [facility] Last Admin: 02/11/17 10:24 Dose: 20 mg Furosemide (Lasix) 40 mg IVP Q12 [facility] Last Admin: 02/12/17 00:31 Dose: Not Given Piperacillin Sod/Tazobactam (Sod 2.25 gm/ Sodium Chloride) 100 mls @ 200 mls/ hr IVPB Q6 [facility] Last Admin: 02/12/17 07:15 Dose: 200 mls/hr Heparin Sodium/Sodium Chloride (Heparin 91805 Units/250ml 1/2 Normal Saline) 25 ,000 units in 250 mls @ 12.7 mls/hr IV .[id number] PRN; Protocol; 10 UNITS/KG/HR PRN Reason: PROTOCOL Last Admin: 02/11/17 23:28 Dose: 10 units/kg/hr, 12.7 mls/hr Insulin Human Regular (Novolin R) 0 unit SC ACHS [facility] PRN Reason: Protocol Last Admin: 02/11/17 23:20 Dose: 2 unit Lactulose (Enulose) 20 gm PO BID [facility] Last Admin: 02/11/17 18:07 Dose: 20 gm Metoprolol Tartrate (Lopressor) 50 mg PO BID [facility] Potassium Chloride (Potassium Chloride Oral Soln) 20 meq PO DAILY [facility] Last Admin: 02/11/17 10:25 Dose: 20 meq Rosuvastatin Calcium (Crestor) 40 mg PO HS [facility] Last Admin: 02/11/17 23:20 Dose: 40 mg - Labs Labs: 02/12/17 05:14 02/12/17 05:14 PT 13.1 SECONDS (9.7-12.2) H 02/11/17 07:14 INR 1.2 02/11/17 07:14 APTT 65 SECONDS (21-34) H 02/12/17 05:14 - Constitutional Appears: No Acute Distress - Head Exam Head Exam: ATRAUMATIC, NORMAL INSPECTION, NORMOCEPHALIC - Neurological Exam Neurological Exam: Alert, Awake, CN II-XII Intact, Oriented x3 Neuro motor strength exam: Left Upper Extremity: 3, Right Upper Extremity: 4, Left Lower Extremity: 4, Right Lower Extremity: 3 Additional comments: He is able to follow commands, sensation is intact. Assessment and Plan (1) Acute CVA (cerebrovascular accident) Assessment & Plan: Case discussed with Dr. Arevalo, continue all current medical, physical, occupational therapies. Heparin drip per Cardiology. Follow up MRI of the brain and MRA of head and neck. Status: Acute
--- NOTE | 2017-02-12 08:33 | CP.PCM.PN ---
Subjective - Date & Time of Evaluation Date of Evaluation: 02/12/17 Time of Evaluation: 07:30 - Subjective Subjective: Ai Williamson DO PGY1 - Cardiology Progress Note for Dr. Jaimes Patient seen and examined at bedside. He currently denies any chest pain or SOB , but nurse reports that he still gets SOB when supine, and patient prefers sitting upright or partially reclined in bed. Patient is scheduled for OR today for revision amputation of right great toe, but patient he has an active IL and is too high risk for any invasive nonemergent surgical interventions, before cardiac cath. Objective - Vital Signs/Intake and Output Vital Signs (last 24 hours): Temp Pulse Resp BP Pulse Ox 97.7 F 70 18 163/77 H 98 02/12/17 07:00 02/12/17 07:00 02/12/17 07:00 02/12/17 07:00 02/12/17 07:00 Intake and Output: 02/12/17 02/12/17 06:59 18:59 Intake Total 250 Output Total 300 Balance -50 - Medications Medications: Current Medications Acetaminophen (Tylenol 325mg Tab) 650 mg PO Q8 PRN PRN Reason: Pain Last Admin: 02/12/17 04:29 Dose: 650 mg Clopidogrel Bisulfate (Plavix) 75 mg PO DAILY [facility] Last Admin: 02/11/17 10:24 Dose: 75 mg Famotidine (Pepcid) 20 mg IVP DAILY [facility] Last Admin: 02/11/17 10:24 Dose: 20 mg Furosemide (Lasix) 40 mg IVP Q12 [facility] Last Admin: 02/12/17 00:31 Dose: Not Given Piperacillin Sod/Tazobactam (Sod 2.25 gm/ Sodium Chloride) 100 mls @ 200 mls/ hr IVPB Q6 [facility] Last Admin: 02/12/17 07:15 Dose: 200 mls/hr Heparin Sodium/Sodium Chloride (Heparin 66098 Units/250ml 1/2 Normal Saline) 25 ,000 units in 250 mls @ 12.7 mls/hr IV .[id number] PRN; Protocol; 10 UNITS/KG/HR PRN Reason: PROTOCOL Last Admin: 02/11/17 23:28 Dose: 10 units/kg/hr, 12.7 mls/hr Insulin Human Regular (Novolin R) 0 unit SC ACHS [facility] PRN Reason: Protocol Last Admin: 02/11/17 23:20 Dose: 2 unit Lactulose (Enulose) 20 gm PO BID [facility] Last Admin: 02/11/17 18:07 Dose: 20 gm Metoprolol Tartrate (Lopressor) 50 mg PO BID [facility] Potassium Chloride (Potassium Chloride Oral Soln) 20 meq PO DAILY [facility] Last Admin: 02/11/17 10:25 Dose: 20 meq Rosuvastatin Calcium (Crestor) 40 mg PO HS [facility] Last Admin: 02/11/17 23:20 Dose: 40 mg - Labs Labs: 02/12/17 05:14 02/12/17 05:14 PT 13.1 SECONDS (9.7-12.2) H 02/11/17 07:14 INR 1.2 02/11/17 07:14 APTT 65 SECONDS (21-34) H 02/12/17 05:14 - Constitutional Appears: Non-toxic, No Acute Distress, Chronically Ill - Head Exam Head Exam: ATRAUMATIC, NORMOCEPHALIC - Eye Exam Eye Exam: EOMI, Normal appearance - ENT Exam ENT Exam: Mucous Membranes Moist - Neck Exam Neck Exam: Normal Inspection - Respiratory Exam Respiratory Exam: Rales, NORMAL BREATHING PATTERN. absent: Rhonchi, Wheezes - Cardiovascular Exam Cardiovascular Exam: RRR, +S1, +S2 - GI/Abdominal Exam GI & Abdominal Exam: Soft. absent: Tenderness - Extremities Exam Extremities Exam: Pedal Edema (trace). absent: Calf Tenderness Additional comments: RLE with dressing on right great toe, some serosanguinous drainage seeping through dressing - Neurological Exam Neurological Exam: Alert, Awake, Oriented x3 Neuro motor strength exam: Left Upper Extremity: 5, Right Upper Extremity: 5, Left Lower Extremity: 3, Right Lower Extremity: 3 - Psychiatric Exam Psychiatric exam: Agitated - Skin Skin Exam: Dry, Intact Assessment and Plan (1) NSTEMI (non-ST elevated myocardial infarction) Assessment & Plan: Patient clinically improved; plan for LHCx today at [facility] Patient not currently complaining of any CP, SOB; still has orthopnea [place] 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, possible source of multifocal CVA; still pending MRI/MRA as part of neuro workup Continue heparin drip, BB, ASA, Plavix, Statin - Cannot give ACEi/ARB at this time due to PORTIA - Patient has not been getting second dose of metoprolol so reordered BID dosing - Continue Lasix Status: Acute (2) Acute CVA (cerebrovascular accident) Assessment & Plan: Patient mental status and neurological neuro exam baseline today Patient has history of multiple CVA in the past (total 4) Likely 2/2 to thromboembolic disease vs small-vessel disease - [place] 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, possible cause of thomboembolic disease - Pending MRI/MRA per neurology to r/o small vessel disease - Patient may require lifetime oral anticoagulation if MRI/MRA does r/o small vessel disease Patient is being seen by Dr. Jackson Arevalo; appreciate recs Continue heparin drip BP goal as below Further workup and management per Dr. Arevalo and ICU team Status: Acute (3) Cardiogenic pulmonary edema Assessment & Plan: Patient SOB improved, but still has some orthopnea; saturating well on O2 by NC - Recommend CPAP nightly for likely LATRELL Held lasix yesterday due to hypokalemia and VTach; resume lasix Monitor I&O Status: Acute (4) CAD (coronary artery disease) Assessment & Plan: Patient scheduled for LHCx today at [facility] Status: Acute (5) HTN (hypertension) Assessment & Plan: BP elevated, but at goal; patient had CVA, no bleed noted on CT head BP goal SBP<185 and DBP<105 per neurology Continue metoprolol 50mg PO BID, as above Continue to monitor BP and titrate medications as needed Status: Chronic (6) Dyslipidemia Assessment & Plan: Continue high dose statin (Crestor 40) for plaque stabilization Status: Chronic (7) Acute kidney injury Assessment & Plan: PORTIA stable over the weekend Hydrate with NS @75cc/hr prior to cath today Continue to monitor Nephro on consult, appreciate recs Status: Acute (8) Osteomyelitis Assessment & Plan: Patient initially presented with R great toe osteomyelitis, now s/p amputation - Patient requires revision amputation of right great toe, but is currently not stable enough for nonemergent invasive surgical intervention Podiatry following Status: Acute (9) Diabetes mellitus Assessment & Plan: Stable Management per primary team Maintain euglycemia Status: Chronic
[2017-02-12] MEDS ORDERED: Sodium Chloride 0.9% 1,000 ML IV SCH (08:45)
[2017-02-12] MEDS ORDERED: Acetylcysteine 20% Inhal Soln (4ml) PO STA (08:45)
[2017-02-12] MEDS: (Novolin R) Insulin Human Regular 100 units/ml vial SC SCH ×2 (08:59→12:52)
[2017-02-12] MEDS: Potassium Chloride 20 mEq/15 ml LIQ UD PO SCH (10:07)
--- NOTE | 2017-02-12 15:54 | CP.PCM.PN ---
Subjective - Date & Time of Evaluation Date of Evaluation: 02/12/17 Time of Evaluation: 10:40 - Subjective Subjective: clinically same Objective - Vital Signs/Intake and Output Vital Signs (last 24 hours): Temp Pulse Resp BP Pulse Ox 98.4 F 52 L 16 161/74 H 98 02/12/17 11:20 02/12/17 11:20 02/12/17 11:20 02/12/17 11:20 02/12/17 11:20 Intake and Output: 02/12/17 02/12/17 06:59 18:59 Intake Total 250 Output Total 300 Balance -50 - Medications Medications: Current Medications Acetaminophen (Tylenol 325mg Tab) 650 mg PO Q8 PRN PRN Reason: Pain Last Admin: 02/12/17 04:29 Dose: 650 mg Clopidogrel Bisulfate (Plavix) 75 mg PO DAILY [facility] Last Admin: 02/12/17 10:07 Dose: Not Given Famotidine (Pepcid) 20 mg IVP DAILY [facility] Last Admin: 02/12/17 10:06 Dose: 20 mg Furosemide (Lasix) 40 mg IVP Q12 [facility] Last Admin: 02/12/17 10:19 Dose: 40 mg Heparin Sodium/Sodium Chloride (Heparin 95787 Units/250ml 1/2 Normal Saline) 25 ,000 units in 250 mls @ 12.7 mls/hr IV .[id number] PRN; Protocol; 10 UNITS/KG/HR PRN Reason: PROTOCOL Last Admin: 02/11/17 23:28 Dose: 10 units/kg/hr, 12.7 mls/hr Sodium Chloride (Sodium Chloride 0.9%) 1,000 mls @ 75 mls/hr IV .[id number] [facility] Last Admin: 02/12/17 09:05 Dose: 75 mls/hr Insulin Human Regular (Novolin R) 0 unit SC ACHS [facility] PRN Reason: Protocol Last Admin: 02/12/17 12:52 Dose: Not Given Lactulose (Enulose) 20 gm PO BID [facility] Last Admin: 02/12/17 10:06 Dose: Not Given Metoprolol Tartrate (Lopressor) 50 mg PO BID [facility] Last Admin: 02/12/17 10:20 Dose: Not Given Potassium Chloride (Potassium Chloride Oral Soln) 20 meq PO DAILY [facility] Last Admin: 02/12/17 10:07 Dose: Not Given Rosuvastatin Calcium (Crestor) 40 mg PO HS [facility] Last Admin: 02/11/17 23:20 Dose: 40 mg - Labs Labs: 02/12/17 05:14 02/12/17 05:14 PT 13.1 SECONDS (9.7-12.2) H 02/11/17 07:14 INR 1.2 02/11/17 07:14 APTT 65 SECONDS (21-34) H 02/12/17 05:14 - Constitutional Appears: Well - Head Exam Head Exam: ATRAUMATIC, NORMAL INSPECTION, NORMOCEPHALIC - Eye Exam Eye Exam: EOMI, Normal appearance, PERRL Pupil Exam: NORMAL ACCOMODATION, PERRL - ENT Exam ENT Exam: Mucous Membranes Moist, Normal Exam - Neck Exam Neck Exam: Full ROM, Normal Inspection. absent: Lymphadenopathy - Respiratory Exam Respiratory Exam: Decreased Breath Sounds - Cardiovascular Exam Cardiovascular Exam: REGULAR RHYTHM, +S1, +S2 - GI/Abdominal Exam GI & Abdominal Exam: Soft, Diminished Bowel Sounds - Rectal Exam Rectal Exam: Deferred
--- NOTE | 2017-02-13 08:08 | CP.PCM.PN ---
Subjective - Date & Time of Evaluation Date of Evaluation: 02/13/17 Time of Evaluation: 08:07 - Subjective Subjective: Mr. Campo was seen and examined at the bedside. He denies any headache, dizziness, lightheadedness, blurry vision, nausea, or vomiting. He had cardiac catheterization yesterday. He is not in any kind of distress.There is no untoward events overnight. Objective - Vital Signs/Intake and Output Vital Signs (last 24 hours): Temp Pulse Resp BP Pulse Ox 97.8 F 94 H 20 144/81 97 02/13/17 00:10 02/13/17 03:59 02/13/17 00:10 02/13/17 00:10 02/13/17 00:10 - Medications Medications: Current Medications Acetaminophen (Tylenol 325mg Tab) 650 mg PO Q8 PRN PRN Reason: Pain Last Admin: 02/12/17 04:29 Dose: 650 mg Clopidogrel Bisulfate (Plavix) 75 mg PO DAILY [facility] Last Admin: 02/12/17 10:07 Dose: Not Given Famotidine (Pepcid) 20 mg IVP DAILY [facility] Last Admin: 02/12/17 10:06 Dose: 20 mg Furosemide (Lasix) 40 mg IVP Q12 [facility] Last Admin: 02/12/17 10:19 Dose: 40 mg Heparin Sodium/Sodium Chloride (Heparin 58697 Units/250ml 1/2 Normal Saline) 25 ,000 units in 250 mls @ 12.7 mls/hr IV .[id number] PRN; Protocol; 10 UNITS/KG/HR PRN Reason: PROTOCOL Last Admin: 02/11/17 23:28 Dose: 10 units/kg/hr, 12.7 mls/hr Sodium Chloride (Sodium Chloride 0.9%) 1,000 mls @ 75 mls/hr IV .[id number] [facility] Last Admin: 02/12/17 09:05 Dose: 75 mls/hr Insulin Human Regular (Novolin R) 0 unit SC ACHS [facility] PRN Reason: Protocol Last Admin: 02/12/17 12:52 Dose: Not Given Lactulose (Enulose) 20 gm PO BID [facility] Last Admin: 02/12/17 10:06 Dose: Not Given Metoprolol Tartrate (Lopressor) 50 mg PO BID [facility] Last Admin: 02/12/17 10:20 Dose: Not Given Potassium Chloride (Potassium Chloride Oral Soln) 20 meq PO DAILY [facility] Last Admin: 02/12/17 10:07 Dose: Not Given Rosuvastatin Calcium (Crestor) 40 mg PO [facility] Last Admin: 02/11/17 23:20 Dose: 40 mg - Labs Labs: 02/12/17 05:14 02/12/17 05:14 PT 13.1 SECONDS (9.7-12.2) H 02/11/17 07:14 INR 1.2 02/11/17 07:14 APTT 65 SECONDS (21-34) H 02/12/17 05:14 - Constitutional Appears: Well - Head Exam Head Exam: ATRAUMATIC, NORMAL INSPECTION, NORMOCEPHALIC - Neurological Exam Neurological Exam: Alert, Awake, CN II-XII Intact, Oriented x3 Neuro motor strength exam: Left Upper Extremity: 4, Right Upper Extremity: 5, Left Lower Extremity: 5, Right Lower Extremity: 4 Additional comments: He is able to follow simple commands, sensation remains intact. Assessment and Plan (1) Acute CVA (cerebrovascular accident) Assessment & Plan: Case discussed with Dr. Arevalo, continue all current medical, physical, occupational, and speech therapies. If patient is stable to do MRI of the brain. There is no new recommendation from neurology. Status: Acute
[2017-02-13] MEDS: (Novolin R) Insulin Human Regular 100 units/ml vial SC SCH ×4 (08:26→22:53)
--- NOTE | 2017-02-13 08:46 | CP.PCM.PN ---
Subjective - Date & Time of Evaluation Date of Evaluation: 02/13/17 Time of Evaluation: 06:30 - Subjective Subjective: Ai Williamson DO PGY1 - Cardiology Progress Note for Dr. Jaimes Patient seen and examined at bedside. Patient is s/p cardiac cath yesterday. No events overnight. Patient now denies any chest pain, SOB, palpitations, pain/ swelling in legs, groin pain. He also denies confusion or weakness. Patient is asking whether he will be able to have the revision amputation done, and is inquiring about going home. Objective - Vital Signs/Intake and Output Vital Signs (last 24 hours): Temp Pulse Resp BP Pulse Ox 98.0 F 94 H 18 171/86 H 96 02/13/17 07:00 02/13/17 07:00 02/13/17 07:00 02/13/17 07:00 02/13/17 07:00 - Medications Medications: Current Medications Acetaminophen (Tylenol 325mg Tab) 650 mg PO Q8 PRN PRN Reason: Pain Last Admin: 02/12/17 04:29 Dose: 650 mg Clopidogrel Bisulfate (Plavix) 75 mg PO DAILY [facility] Last Admin: 02/12/17 10:07 Dose: Not Given Famotidine (Pepcid) 20 mg IVP DAILY [facility] Last Admin: 02/12/17 10:06 Dose: 20 mg Furosemide (Lasix) 40 mg IVP Q12 [facility] Last Admin: 02/12/17 10:19 Dose: 40 mg Heparin Sodium/Sodium Chloride (Heparin 25582 Units/250ml 1/2 Normal Saline) 25 ,000 units in 250 mls @ 12.7 mls/hr IV .[id number] PRN; Protocol; 10 UNITS/KG/HR PRN Reason: PROTOCOL Last Admin: 02/11/17 23:28 Dose: 10 units/kg/hr, 12.7 mls/hr Sodium Chloride (Sodium Chloride 0.9%) 1,000 mls @ 75 mls/hr IV .[id number] [facility] Last Admin: 02/12/17 09:05 Dose: 75 mls/hr Insulin Human Regular (Novolin R) 0 unit SC ACHS [facility] PRN Reason: Protocol Last Admin: 02/13/17 08:26 Dose: Not Given Lactulose (Enulose) 20 gm PO BID [facility] Last Admin: 02/12/17 10:06 Dose: Not Given Metoprolol Tartrate (Lopressor) 50 mg PO BID [facility] Last Admin: 02/12/17 10:20 Dose: Not Given Potassium Chloride (Potassium Chloride Oral Soln) 20 meq PO DAILY [facility] Last Admin: 02/12/17 10:07 Dose: Not Given Rosuvastatin Calcium (Crestor) 40 mg PO HS [facility] Last Admin: 02/11/17 23:20 Dose: 40 mg - Labs Labs: 02/12/17 05:14 02/12/17 05:14 PT 13.1 SECONDS (9.7-12.2) H 02/11/17 07:14 INR 1.2 02/11/17 07:14 APTT 65 SECONDS (21-34) H 02/12/17 05:14 - Constitutional Appears: Non-toxic, No Acute Distress, Chronically Ill - Head Exam Head Exam: ATRAUMATIC, NORMOCEPHALIC - Eye Exam Eye Exam: EOMI, Normal appearance - ENT Exam ENT Exam: Mucous Membranes Moist - Neck Exam Neck Exam: Normal Inspection - Respiratory Exam Respiratory Exam: Clear to Ausculation Bilateral, NORMAL BREATHING PATTERN. absent: Rales, Rhonchi, Wheezes - Cardiovascular Exam Cardiovascular Exam: RRR, +S1, +S2 - GI/Abdominal Exam GI & Abdominal Exam: Soft. absent: Tenderness - Extremities Exam Extremities Exam: absent: Calf Tenderness, Pedal Edema Additional comments: DP pulses palpable bilaterally Right great toe wound dressing in place, with some serosanguinous drainage noted - Neurological Exam Neurological Exam: Alert, Awake, Oriented x3 Neuro motor strength exam: Left Upper Extremity: 5, Right Upper Extremity: 5, Left Lower Extremity: 3, Right Lower Extremity: 3 - Psychiatric Exam Psychiatric exam: Normal Affect, Normal Mood - Skin Skin Exam: Dry, Intact Assessment and Plan (1) NSTEMI (non-ST elevated myocardial infarction) Assessment & Plan: Patient is s/p PCI with JOVANNY placement in mLAD; currently asymptomatic - Patientnhad high grade stenosis of the LAD which was successfully revascularized with a JOVANNY and high grade obtuse marginal disease which will be revascularized at a future intervention - Patient can proceed with planned intervention for right great toe; remains moderate risk for perioperative cardiac events [place] 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, possible source of multifocal CVA; still pending MRI/MRA as part of neuro workup Continue BB, ASA, Plavix, Statin, lasix - Cannot give ACEi/ARB at this time due to PORTIA Stop heparin drip, Start eliquis 2.5g PO BID Status: Acute (2) Acute CVA (cerebrovascular accident) Assessment & Plan: Patient mental status and neurological neuro exam remains at baseline, with no acute changes post cath 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 Arevalo), appreciate recs Status: Acute (3) Cardiogenic pulmonary edema Assessment & Plan: Orthopnea and signs of congestion improving; saturating well on O2 by NC - Recommend CPAP nightly for likely LATRELL Continue lasix Repeat BNP ordered, pending Monitor I&O Status: Acute (4) CAD (coronary artery disease) Assessment & Plan: s/p PCI as above Status: Acute (5) HTN (hypertension) Assessment & Plan: BP elevated, but at goal; patient had CVA, no bleed noted on CT head BP goal SBP<185 and DBP<105 per neurology Continue metoprolol 50mg PO BID, as above Continue to monitor BP and titrate medications as needed Status: Chronic (6) Dyslipidemia Assessment & Plan: Continue statin Status: Chronic (7) Acute kidney injury Assessment & Plan: Patient is s/p coronary angiography with PCI; CMP for today pending; continue gentle hydration Continue to monitor Nephro on consult, appreciate recs Status: Acute (8) Osteomyelitis Assessment & Plan: Patient initially presented with R great toe osteomyelitis, now s/p amputation - Patient is now moderate risk for perioperatove cardiac event Podiatry following Status: Acute (9) Diabetes mellitus Assessment & Plan: Stable Management per primary team Maintain euglycemia Status: Chronic
[2017-02-13] MEDS: Potassium Chloride 20 mEq/15 ml LIQ UD PO SCH (10:11)
[2017-02-13 10:42] LABS: BASO # 0.1 K/uL (0.0-0.2); BASO % 0.6 % (0.0-2.0); EOS # 0.3 K/uL (0.0-0.7); EOS % 2.8 % (0.0-4.0); HEMATOCRIT 32.6 % (35.0-51.0); LYMPH % 19.4 % (20.0-40.0); MEAN CELL VOLUME 86.2 fL (80.0-94.0); MEAN CORPUSCULAR HEMOGLOBIN 28.6 pg (27.0-31.0); MEAN CORPUSCULAR HGB CONC 33.2 g/dL (33.0-37.0); MEAN PLATELET VOLUME 8.6 fL (7.2-11.7); MONO # 0.7 K/uL (0.0-0.8); RED CELL DISTRIBUTION WIDTH 14.1 % (11.5-14.5); WHITE BLOOD COUNT 10.5 K/uL (4.8-10.8)
[2017-02-13 10:50] LABS: POTASSIUM 3.7 mmol/L (3.6-5.2)
[2017-02-13 10:53] LABS: ALB/GLOB RATIO 0.8 (1.0-2.1); BILIRUBIN,TOTAL 0.6 mg/dL (0.2-1.3); TOTAL PROTEIN 7.3 g/dL (6.3-8.3)
[2017-02-13 10:54] LABS: CALCIUM 9.2 mg/dl (8.6-10.4)
--- NOTE | 2017-02-13 13:33 | CP.PCM.PN ---
Subjective - Date & Time of Evaluation Date of Evaluation: 02/13/17 Time of Evaluation: 10:00 - Subjective Subjective: Podiatry Progress Note - Dr. Tariq: 71 y/o male patient seen at bedside POD# 12 s/p partial amp of right great toe. Patient is alert and awake and is in no acute distress. Patient states that he has mild pain to his right foot but is managing well with the medications. Pt has returned from cardiac procedure at [facility]. Patient denies of any F/N/V/C/SOB /CP today. Patient is eager to go home. Patient denies of any other pedal complains at this time. Objective - Vital Signs/Intake and Output Vital Signs (last 24 hours): Temp Pulse Resp BP Pulse Ox 98.0 F 94 H 18 170/90 H 96 02/13/17 07:00 02/13/17 07:00 02/13/17 07:00 02/13/17 10:10 02/13/17 07:00 - Medications Medications: Current Medications Acetaminophen (Tylenol 325mg Tab) 650 mg PO Q8 PRN PRN Reason: Pain Last Admin: 02/12/17 04:29 Dose: 650 mg Apixaban (Eliquis) 5 mg PO DAILY [facility] Clopidogrel Bisulfate (Plavix) 75 mg PO DAILY [facility] Last Admin: 02/13/17 10:08 Dose: 75 mg Famotidine (Pepcid) 20 mg IVP DAILY [facility] Last Admin: 02/13/17 10:11 Dose: 20 mg Furosemide (Lasix) 40 mg IVP Q12 [facility] Last Admin: 02/13/17 10:10 Dose: 40 mg Heparin Sodium/Sodium Chloride (Heparin 84103 Units/250ml 1/2 Normal Saline) 25 ,000 units in 250 mls @ 12.7 mls/hr IV .[id number] PRN; Protocol; 10 UNITS/KG/HR PRN Reason: PROTOCOL Last Admin: 02/11/17 23:28 Dose: 10 units/kg/hr, 12.7 mls/hr Sodium Chloride (Sodium Chloride 0.9%) 1,000 mls @ 75 mls/hr IV .[id number] [facility] Last Admin: 02/12/17 09:05 Dose: 75 mls/hr Insulin Human Regular (Novolin R) 0 unit SC ACHS [facility] PRN Reason: Protocol Last Admin: 02/13/17 12:44 Dose: 6 unit Lactulose (Enulose) 20 gm PO BID [facility] Last Admin: 02/13/17 10:25 Dose: Not Given Lorazepam (Ativan) 1 mg IVP ONCE ONE Stop: 02/13/17 13:23 Metoprolol Tartrate (Lopressor) 50 mg PO BID [facility] Last Admin: 02/13/17 10:08 Dose: 50 mg Potassium Chloride (Potassium Chloride Oral Soln) 20 meq PO DAILY [facility] Last Admin: 02/13/17 10:11 Dose: 20 meq Rosuvastatin Calcium (Crestor) 40 mg PO HS [facility] Last Admin: 02/11/17 23:20 Dose: 40 mg - Labs Labs: 02/13/17 10:34 02/13/17 10:34 PT 13.1 SECONDS (9.7-12.2) H 02/11/17 07:14 INR 1.2 02/11/17 07:14 APTT 65 SECONDS (21-34) H 02/12/17 05:14 - Constitutional Appears: Well, Non-toxic, No Acute Distress - Extremities Exam Additional comments: Right foot focused. Dressing clean, dry, and intact . VASC: DP and PT pulses are palpable 1/4. Mild non-pitting edema noted to right foot. Temperature gradient is warms to cool proximal to distal. DERM: Right hallux amputation site visualized, plantar flap is undergoing undergoing dry gangrene ischemic changes, thickness and robustness as markedly decreased. Ecchymotic presentation transitioning to necrotic areas. Flap is cold to touch, though remains stably adhered. All sutures remain intact, no active serous drainage noted. Minor medial suture site dehiscience noted. No purulent drainage. NEURO: Protective sensation grossly diminished. ORTHO: Mild tenderness on palpation of the surgical site Assessment and Plan - Assessment and Plan (Free Text) Assessment: 71 yo male patient POD # 12 partial amputation right hallux 2/2 diabetic neuropathy Plan: Patient is seen and evaluated at bedside with attending, Dr. Tariq, present. Chart, labs, and vitals reviewed. Afebrile WBC @ 9.6, increased form yesterday. Cleansed surgical site with peroxide, dressed with peroxide wet-to-dry dressing and DSD. Hallux amputation site grows more ischemic and plantar flap vascular compromise. Viability and healing potential at site an acute concern. Surgical intervention indicated. Pt to undergoes revisional hallux amputation tomorrow, as dischargin pt would likely lead to poorer post-operative outcome without procedure done . c/w offloading boots bilaterally. c/w IV abx per ID Pt to OR tomorrow for revisional right hallux amputation. Medical clearanced by Dr. Green as high risk. Pt placed NPO at nidnight. Podiatry will continue to follow patient while inhouse.
--- NOTE | 2017-02-13 20:10 | CP.PCM.PN ---
Subjective - Date & Time of Evaluation Date of Evaluation: 02/13/17 Time of Evaluation: 10:20 - Subjective Subjective: clinically same Objective - Vital Signs/Intake and Output Vital Signs (last 24 hours): Temp Pulse Resp BP Pulse Ox 98.0 F 69 20 163/84 H 95 02/13/17 15:24 02/13/17 15:24 02/13/17 15:24 02/13/17 15:24 02/13/17 15:24 Intake and Output: 02/13/17 02/14/17 18:59 06:59 Intake Total 480 Balance 480 - Medications Medications: Current Medications Acetaminophen (Tylenol 325mg Tab) 650 mg PO Q8 PRN PRN Reason: Pain Last Admin: 02/12/17 04:29 Dose: 650 mg Apixaban (Eliquis) 2.5 mg PO BID [facility] Last Admin: 02/13/17 18:30 Dose: 2.5 mg Clopidogrel Bisulfate (Plavix) 75 mg PO DAILY [facility] Last Admin: 02/13/17 10:08 Dose: 75 mg Famotidine (Pepcid) 20 mg IVP DAILY [facility] Last Admin: 02/13/17 10:11 Dose: 20 mg Furosemide (Lasix) 40 mg IVP Q12 [facility] Last Admin: 02/13/17 10:10 Dose: 40 mg Insulin Human Regular (Novolin R) 0 unit SC ACHS [facility] PRN Reason: Protocol Last Admin: 02/13/17 17:26 Dose: 10 unit Lactulose (Enulose) 20 gm PO BID [facility] Last Admin: 02/13/17 17:56 Dose: Not Given Metoprolol Tartrate (Lopressor) 50 mg PO BID [facility] Last Admin: 02/13/17 18:31 Dose: 50 mg Potassium Chloride (Potassium Chloride Oral Soln) 20 meq PO DAILY [facility] Last Admin: 02/13/17 10:11 Dose: 20 meq Rosuvastatin Calcium (Crestor) 40 mg PO HS [facility] Last Admin: 02/11/17 23:20 Dose: 40 mg - Labs Labs: 02/13/17 10:34 02/13/17 10:34 PT 13.1 SECONDS (9.7-12.2) H 02/11/17 07:14 INR 1.2 02/11/17 07:14 APTT 65 SECONDS (21-34) H 02/12/17 05:14
--- NOTE | 2017-02-14 07:31 | CP.PCM.PN ---
Subjective - Date & Time of Evaluation Date of Evaluation: 02/14/17 Time of Evaluation: 07:28 - Subjective Subjective: Mr. Campo was seen and examined at the bedside. He is alert, oriented in all spheres. He denies any headache, dizziness, lightheadedness, nausea, or vomiting. Patient is NPO for OR this am. He has 1:1 sitter for patient safety. There is no untoward events overnight. Objective - Vital Signs/Intake and Output Vital Signs (last 24 hours): Temp Pulse Resp BP Pulse Ox 98.0 F 76 20 145/65 95 02/13/17 15:24 02/14/17 04:26 02/13/17 15:24 02/13/17 22:46 02/13/17 15:24 - Medications Medications: Current Medications Acetaminophen (Tylenol 325mg Tab) 650 mg PO Q8 PRN PRN Reason: Pain Last Admin: 02/13/17 20:51 Dose: 650 mg Apixaban (Eliquis) 2.5 mg PO BID [facility] Last Admin: 02/13/17 18:30 Dose: 2.5 mg Clopidogrel Bisulfate (Plavix) 75 mg PO DAILY [facility] Last Admin: 02/13/17 10:08 Dose: 75 mg Famotidine (Pepcid) 20 mg IVP DAILY [facility] Last Admin: 02/13/17 10:11 Dose: 20 mg Furosemide (Lasix) 40 mg IVP Q12 [facility] Last Admin: 02/13/17 22:46 Dose: 40 mg Insulin Human Regular (Novolin R) 0 unit SC ACHS [facility] PRN Reason: Protocol Last Admin: 02/13/17 22:53 Dose: 3 unit Lactulose (Enulose) 20 gm PO BID [facility] Last Admin: 02/13/17 17:56 Dose: Not Given Metoprolol Tartrate (Lopressor) 50 mg PO BID [facility] Last Admin: 02/13/17 18:31 Dose: 50 mg Potassium Chloride (Potassium Chloride Oral Soln) 20 meq PO DAILY [facility] Last Admin: 02/13/17 10:11 Dose: 20 meq Rosuvastatin Calcium (Crestor) 40 mg PO HS [facility] Last Admin: 02/13/17 22:46 Dose: 40 mg - Labs Labs: 02/13/17 10:34 02/13/17 10:34 PT 13.1 SECONDS (9.7-12.2) H 02/11/17 07:14 INR 1.2 02/11/17 07:14 APTT 65 SECONDS (21-34) H 02/12/17 05:14 - Constitutional Appears: Well, No Acute Distress - Head Exam Head Exam: ATRAUMATIC - Neurological Exam Neurological Exam: Alert, Awake, CN II-XII Intact, Oriented x3 Neuro motor strength exam: Left Upper Extremity: 4, Right Upper Extremity: 5, Left Lower Extremity: 5, Right Lower Extremity: 5 Additional comments: He is able to follow commands, response appropriately, sensation intact. Assessment and Plan (1) Acute CVA (cerebrovascular accident) Assessment & Plan: Case discussed with Dr. Arevalo, continue all current medical, physical, occupational, and speech therapies. If possible for MRI of the brain if stable. Status: Acute
[2017-02-14 07:40] LABS: BASO % 0.3 % (0.0-2.0); EOS # 0.4 K/uL (0.0-0.7); EOS % 2.9 % (0.0-4.0); HEMATOCRIT 30.8 % (35.0-51.0); LYMPH % 15.8 % (20.0-40.0); MEAN CELL VOLUME 86.1 fL (80.0-94.0); MEAN CORPUSCULAR HEMOGLOBIN 28.5 pg (27.0-31.0); MEAN CORPUSCULAR HGB CONC 33.1 g/dL (33.0-37.0); MONO % 8.2 % (0.0-10.0); RED CELL DISTRIBUTION WIDTH 14.2 % (11.5-14.5); WHITE BLOOD COUNT 12.5 K/uL (4.8-10.8)
[2017-02-14 08:04] LABS: POTASSIUM 3.3 mmol/L (3.6-5.2)
[2017-02-14 08:06] LABS: ALB/GLOB RATIO 0.8 (1.0-2.1); BILIRUBIN,TOTAL 0.5 mg/dL (0.2-1.3); TOTAL PROTEIN 7.2 g/dL (6.3-8.3)
[2017-02-14 08:07] LABS: CALCIUM 8.8 mg/dl (8.6-10.4)
[2017-02-14] MEDS: (Novolin R) Insulin Human Regular 100 units/ml vial SC SCH ×5 (08:30→22:11)
[2017-02-14] MEDS ORDERED: (Novolin R) Insulin Human Regular 100 units/ml vial SC ONE (08:42)
[2017-02-14] MEDS: Potassium Chloride 20 mEq/15 ml LIQ UD PO SCH ×2 (09:32→09:45)
[2017-02-14 10:30] LABS: PHOSPHOROUS 4.1 mg/dL (2.5-4.5)
[2017-02-14 10:31] LABS: MAGNESIUM 1.6 mg/dL (1.6-2.3)
--- NOTE | 2017-02-14 10:36 | CP.PCM.PN ---
<AI ARMAS - Last Filed: 02/14/17 15:25> Subjective - Date & Time of Evaluation Date of Evaluation: 02/14/17 Time of Evaluation: 07:30 - Subjective Subjective: Ai Armas DO PGY1 - Cardiology Progress Note for Dr. Jaimes Patient seen and examined at bedside. No events overnight. Patient denies chest pain, and reports improving orthopnea and shortness of breath. He is scheduled for revision amputation of right great toe today at 1100 with podiatry. Objective - Vital Signs/Intake and Output Vital Signs (last 24 hours): Temp Pulse Resp BP Pulse Ox 98.1 F 76 18 170/90 H 98 02/14/17 07:25 02/14/17 07:25 02/14/17 07:25 02/14/17 07:25 02/14/17 07:25 - Medications Medications: Current Medications Acetaminophen (Tylenol 325mg Tab) 650 mg PO Q8 PRN PRN Reason: Pain Last Admin: 02/13/17 20:51 Dose: 650 mg Apixaban (Eliquis) 2.5 mg PO BID [facility] Last Admin: 02/14/17 09:43 Dose: Not Given Clopidogrel Bisulfate (Plavix) 75 mg PO DAILY [facility] Last Admin: 02/14/17 09:44 Dose: Not Given Famotidine (Pepcid) 20 mg IVP DAILY [facility] Last Admin: 02/13/17 10:11 Dose: 20 mg Furosemide (Lasix) 40 mg IVP Q12 [facility] Last Admin: 02/13/17 22:46 Dose: 40 mg Insulin Human Regular (Novolin R) 0 unit SC ACHS [facility] PRN Reason: Protocol Last Admin: 02/14/17 08:30 Dose: Not Given Lactulose (Enulose) 20 gm PO BID [facility] Last Admin: 02/14/17 09:44 Dose: Not Given Metoprolol Tartrate (Lopressor) 50 mg PO BID [facility] Last Admin: 02/14/17 09:30 Dose: 50 mg Potassium Chloride (Potassium Chloride Oral Soln) 20 meq PO DAILY [facility] Last Admin: 02/14/17 09:45 Dose: Not Given Rosuvastatin Calcium (Crestor) 40 mg PO HS [facility] Last Admin: 02/13/17 22:46 Dose: 40 mg - Labs Labs: 02/14/17 07:30 02/14/17 07:30 PT 13.1 SECONDS (9.7-12.2) H 02/11/17 07:14 INR 1.2 02/11/17 07:14 APTT 65 SECONDS (21-34) H 02/12/17 05:14 - Constitutional Appears: Non-toxic, No Acute Distress, Chronically Ill - Head Exam Head Exam: ATRAUMATIC, NORMOCEPHALIC - Eye Exam Eye Exam: EOMI, Normal appearance - ENT Exam ENT Exam: Mucous Membranes Moist - Neck Exam Neck Exam: Normal Inspection - Respiratory Exam Respiratory Exam: Rales (diffuse, improved since yesterday), NORMAL BREATHING PATTERN - Cardiovascular Exam Cardiovascular Exam: RRR, +S1, +S2 - GI/Abdominal Exam GI & Abdominal Exam: Soft. absent: Tenderness - Extremities Exam Extremities Exam: absent: Calf Tenderness Additional comments: 1+ edema to mid siu b/l Right great toe dressing in place, with dark drainage stains - Neurological Exam Neurological Exam: Alert, Awake, Oriented x3 Neuro motor strength exam: Left Upper Extremity: 5, Right Upper Extremity: 5, Left Lower Extremity: 3, Right Lower Extremity: 3 - Psychiatric Exam Psychiatric exam: Normal Affect, Normal Mood - Skin Skin Exam: Dry, Intact Assessment and Plan (1) NSTEMI (non-ST elevated myocardial infarction) Assessment & Plan: Patient is s/p PCI with JOVANNY placement in mLAD; currently asymptomatic - Patient had high grade stenosis of the LAD which was successfully revascularized with a JOVANNY, and high grade obtuse marginal disease which will be revascularized at a future intervention - Patient can proceed with planned intervention for right great toe; remains moderate risk for perioperative cardiac events [place] 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, possible source of multifocal CVA; still pending MRI/MRA as part of neuro workup Continue BB, ASA, Plavix, Statin, lasix - Cannot give ACEi/ARB at this time due to PORTIA Continue eliquis 2.5g PO BID Status: Acute (2) Acute CVA (cerebrovascular accident) Assessment & Plan: Patient mental status and neurological neuro exam remains at baseline, with no acute changes post cath 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 Arevalo), appreciate recs Status: Acute (3) Cardiogenic pulmonary edema Assessment & Plan: Orthopnea and signs of congestion improving; saturating well on O2 by NC - Recommend CPAP nightly for likely LATRELL Repeat BNP yesterday 3590, decreased from >6000 2 days prior; will require continued diuresis, but will decrease dose at this time due to acute worsening in PORTIA - Continue lasix, decrease to 40mg IVP once daily Status: Acute (4) CAD (coronary artery disease) Assessment & Plan: s/p PCI as above Status: Acute (5) HTN (hypertension) Assessment & Plan: BP elevated, but at goal; patient had CVA, no bleed noted on CT head BP goal SBP<185 and DBP<105 per neurology Continue metoprolol 50mg PO BID, as above Continue to monitor BP and titrate medications as needed Status: Chronic (6) Dyslipidemia Assessment & Plan: Continue Statin Status: Chronic (7) Acute kidney injury Assessment & Plan: PORTIA acutely worsened s/p coronary angiography with PCI and diuresis (Cr 1.9-> 2.1->2.5) - Decrease dose of lasix, as above - Recommend continued gentle hydration Continue to monitor Nephro on consult, appreciate recs Status: Acute (8) Osteomyelitis Assessment & Plan: Patient initially presented with R great toe osteomyelitis, now s/p amputation - Patient is now moderate risk for perioperatove cardiac event - Scheduled for revision amputation today Podiatry following Status: Acute (9) Diabetes mellitus Assessment & Plan: Management per primary team Maintain euglycemia Status: Chronic <Donaldo Jaimes - Last Filed: 02/14/17 16:15> Objective - Vital Signs/Intake and Output Vital Signs (last 24 hours): Temp Pulse Resp BP Pulse Ox 97.4 F L 57 L 21 153/80 H 96 02/14/17 14:36 02/14/17 14:36 02/14/17 14:36 02/14/17 14:36 02/14/17 14:36 Intake and Output: 02/14/17 02/14/17 06:59 18:59 Intake Total 360 Balance 360 - Medications Medications: Current Medications Acetaminophen (Tylenol 325mg Tab) 650 mg PO Q8 PRN PRN Reason: Pain Last Admin: 02/13/17 20:51 Dose: 650 mg Apixaban (Eliquis) 2.5 mg PO BID [facility] Last Admin: 02/14/17 09:43 Dose: Not Given Clopidogrel Bisulfate (Plavix) 75 mg PO DAILY [facility] Last Admin: 02/14/17 09:44 Dose: Not Given Famotidine (Pepcid) 20 mg IVP DAILY [facility] Last Admin: 02/14/17 10:32 Dose: 20 mg Furosemide (Lasix) 40 mg IVP DAILY [facility] Insulin Human Regular (Novolin R) 0 unit SC ACHS [facility] PRN Reason: Protocol Last Admin: 02/14/17 11:57 Dose: 8 unit Lactulose (Enulose) 20 gm PO BID [facility] Last Admin: 02/14/17 09:44 Dose: Not Given Metoprolol Tartrate (Lopressor) 50 mg PO BID [facility] Last Admin: 02/14/17 09:30 Dose: 50 mg Potassium Chloride (Potassium Chloride Oral Soln) 20 meq PO DAILY [facility] Last Admin: 02/14/17 09:45 Dose: Not Given Rosuvastatin Calcium (Crestor) 40 mg PO HS [facility] Last Admin: 02/13/17 22:46 Dose: 40 mg - Labs Labs: 02/14/17 07:30 02/14/17 07:30 PT 13.1 SECONDS (9.7-12.2) H 02/11/17 07:14 INR 1.2 02/11/17 07:14 APTT 65 SECONDS (21-34) H 02/12/17 05:14 Assessment and Plan (1) NSTEMI (non-ST elevated myocardial infarction) Status: Acute (2) HTN (hypertension) Status: Chronic (3) Dyslipidemia Status: Chronic (4) CAD (coronary artery disease) Status: Acute Attending/Attestation - Attestation I have personally seen and examined this patient.: Yes I have fully participated in the care of the patient.: Yes I have reviewed all pertinent clinical information, including history, physical exam and plan: Yes Notes (Text): 02/14/17 16:13 pt seen post operatively in PACU in mild discomfort from surgical debridement/revision site BP/HR stable O/E mild pulmonary congestion , RRR, +ve systolic murmur at LSB cont metoprolol decrease lasix to once daily add hydralazine 25mg po tid cont DAPT ( ASA + plavix ) and eliquis 2.5mg bid s/p PCI of mLAD high grade lesion on Sunday will need staged PCI of OM in near future depending on wound healing consider peripheral angiogram to assess circulation
[2017-02-14] MEDS ORDERED: Lidocaine 2% Inj (20ml) ONE (13:12)
[2017-02-14] MEDS ORDERED: Bupivacaine 0.5% Inj(30mL) ONE (13:12)
[2017-02-14] MEDS ORDERED: Propofol 10 mg/ml Inj (20 ML) ONE (13:24)
[2017-02-14] MEDS ORDERED: Midazolam 2 MG/2 ML VIAL ONE ×2 (13:24→14:18)
--- NOTE | 2017-02-14 14:43 | PCM.SURG1 ---
Surgeon's Initial Post Op Note - Surgeon's Notes Surgeon: Dr. Tate DPM [place] Measurer: Reggie Floyd PGY2 Type of Anesthesia: IV Sedation, Local (20ml of 1:1 mixture of 2% lidocaine plain to 0.5% marcaine plain ) Anesthesia Administered By: Dr. Kirby MD Pre-Operative Diagnosis: Right foot ischemic hallux amputation site. Operative Findings: See dictation. M: 1 Chromic gut, 3-0 Nylon Post-Operative Diagnosis: Right foot ischemic ampuation site. Right foot hallux ischemic changes Operation Performed: Right foot revisional hallux amputation w/ 1st metatarsal head resection. Specimen/Specimens Removed: Right foot bone and soft tissue Estimated Blood Loss: EBL {In ML}: 20 Blood Products Given: N/A Drains Used: [place] Post-Op Condition: Good Date of Surgery/Procedure: 02/14/17 Time of Surgery/Procedure: 14:20
[2017-02-14] MEDS ORDERED: (Novolin R) Insulin Human Regular 100 units/ml vial IV ONE (15:00)
--- NOTE | 2017-02-14 19:15 | CP.PCM.PN ---
Subjective - Date & Time of Evaluation Date of Evaluation: 02/14/17 Time of Evaluation: 09:40 - Subjective Subjective: clinically same Objective - Vital Signs/Intake and Output Vital Signs (last 24 hours): Temp Pulse Resp BP Pulse Ox 97.2 F L 62 20 169/88 H 96 02/14/17 15:53 02/14/17 16:00 02/14/17 15:53 02/14/17 15:53 02/14/17 15:53 Intake and Output: 02/14/17 02/15/17 18:59 06:59 Intake Total 410 Balance 410 - Medications Medications: Current Medications Acetaminophen (Tylenol 325mg Tab) 650 mg PO Q8 PRN PRN Reason: Pain Last Admin: 02/13/17 20:51 Dose: 650 mg Apixaban (Eliquis) 2.5 mg PO BID [facility] Last Admin: 02/14/17 09:43 Dose: Not Given Clopidogrel Bisulfate (Plavix) 75 mg PO DAILY [facility] Last Admin: 02/14/17 09:44 Dose: Not Given Famotidine (Pepcid) 20 mg IVP DAILY [facility] Last Admin: 02/14/17 10:32 Dose: 20 mg Furosemide (Lasix) 40 mg IVP DAILY [facility] Hydralazine HCl (Apresoline) 25 mg PO TID [facility] Last Admin: 02/14/17 19:01 Dose: 25 mg Insulin Human Regular (Novolin R) 0 unit SC ACHS [facility] PRN Reason: Protocol Last Admin: 02/14/17 17:11 Dose: Not Given Lactulose (Enulose) 20 gm PO BID [facility] Last Admin: 02/14/17 19:01 Dose: 20 gm Metoprolol Tartrate (Lopressor) 50 mg PO BID [facility] Last Admin: 02/14/17 19:02 Dose: 50 mg Potassium Chloride (Potassium Chloride Oral Soln) 20 meq PO DAILY [facility] Last Admin: 02/14/17 09:45 Dose: Not Given Rosuvastatin Calcium (Crestor) 40 mg PO HS [facility] Last Admin: 02/13/17 22:46 Dose: 40 mg - Labs Labs: 02/14/17 07:30 02/14/17 07:30 PT 13.1 SECONDS (9.7-12.2) H 02/11/17 07:14 INR 1.2 02/11/17 07:14 APTT 65 SECONDS (21-34) H 02/12/17 05:14 - Constitutional Appears: Well - Head Exam Head Exam: ATRAUMATIC, NORMAL INSPECTION, NORMOCEPHALIC - Eye Exam Eye Exam: EOMI, Normal appearance, PERRL Pupil Exam: NORMAL ACCOMODATION, PERRL - ENT Exam ENT Exam: Mucous Membranes Moist, Normal Exam - Neck Exam Neck Exam: Full ROM, Normal Inspection. absent: Lymphadenopathy - Respiratory Exam Respiratory Exam: Decreased Breath Sounds - Cardiovascular Exam Cardiovascular Exam: REGULAR RHYTHM, +S1, +S2 - GI/Abdominal Exam GI & Abdominal Exam: Soft, Diminished Bowel Sounds - Rectal Exam Rectal Exam: Deferred
[2017-02-15 07:47] LABS: BASO # 0.1 K/uL (0.0-0.2); BASO % 0.4 % (0.0-2.0); EOS # 0.3 K/uL (0.0-0.7); EOS % 2.1 % (0.0-4.0); HEMATOCRIT 33.1 % (35.0-51.0); LYMPH # 2.1 K/uL (1.0-4.3); LYMPH % 14.4 % (20.0-40.0); MEAN CELL VOLUME 84.7 fL (80.0-94.0); MEAN CORPUSCULAR HEMOGLOBIN 28.5 pg (27.0-31.0); MEAN CORPUSCULAR HGB CONC 33.7 g/dL (33.0-37.0); MEAN PLATELET VOLUME 9.1 fL (7.2-11.7); MONO # 1.1 K/uL (0.0-0.8); MONO % 7.2 % (0.0-10.0); RED CELL DISTRIBUTION WIDTH 13.8 % (11.5-14.5); WHITE BLOOD COUNT 14.7 K/uL (4.8-10.8)
--- NOTE | 2017-02-15 08:01 | CP.PCM.PN ---
Subjective - Date & Time of Evaluation Date of Evaluation: 02/15/17 Time of Evaluation: 07:57 - Subjective Subjective: Mr. Campo was seen and examined at the bedside. He is restless this am, but able to be redirected. He has bilateral upper extremities mitten and a 1:1 sitter for patient safety. He is able to answer appropriately to few questions. He denies any headache, pain, dizziness, lightheadedness, or numbness.There is no untoward events overnight. Objective - Vital Signs/Intake and Output Vital Signs (last 24 hours): Temp Pulse Resp BP Pulse Ox 98 F 74 20 176/67 H 96 02/15/17 04:12 02/15/17 04:42 02/15/17 04:12 02/15/17 04:12 02/15/17 04:12 Intake and Output: 02/15/17 02/15/17 06:59 18:59 Intake Total 320 Output Total 400 Balance -80 - Medications Medications: Current Medications Acetaminophen (Tylenol 325mg Tab) 650 mg PO Q8 PRN PRN Reason: Pain Last Admin: 02/13/17 20:51 Dose: 650 mg Apixaban (Eliquis) 2.5 mg PO BID [facility] Last Admin: 02/14/17 22:11 Dose: 2.5 mg Clopidogrel Bisulfate (Plavix) 75 mg PO DAILY [facility] Last Admin: 02/14/17 09:44 Dose: Not Given Famotidine (Pepcid) 20 mg IVP DAILY [facility] Last Admin: 02/14/17 10:32 Dose: 20 mg Furosemide (Lasix) 40 mg IVP DAILY [facility] Hydralazine HCl (Apresoline) 25 mg PO TID [facility] Last Admin: 02/14/17 19:01 Dose: 25 mg Insulin Human Regular (Novolin R) 0 unit SC ACHS [facility] PRN Reason: Protocol Last Admin: 02/14/17 22:11 Dose: 2 unit Lactulose (Enulose) 20 gm PO BID [facility] Last Admin: 02/14/17 19:01 Dose: 20 gm Metoprolol Tartrate (Lopressor) 50 mg PO BID [facility] Last Admin: 02/14/17 19:02 Dose: 50 mg Potassium Chloride (Potassium Chloride Oral Soln) 20 meq PO DAILY [facility] Last Admin: 02/14/17 09:45 Dose: Not Given Rosuvastatin Calcium (Crestor) 40 mg PO HS [facility] Last Admin: 02/14/17 22:11 Dose: 40 mg - Labs Labs: 02/15/17 07:33 02/14/17 07:30 PT 13.1 SECONDS (9.7-12.2) H 02/11/17 07:14 INR 1.2 02/11/17 07:14 APTT 65 SECONDS (21-34) H 02/12/17 05:14 - Constitutional Appears: No Acute Distress, Agitated - Head Exam Head Exam: ATRAUMATIC - Neurological Exam Neurological Exam: Awake, Oriented x3 Neuro motor strength exam: Left Upper Extremity: 4, Right Upper Extremity: 5, Left Lower Extremity: 5, Right Lower Extremity: 5 Additional comments: He has episodes of restlessness, able to follow commands. Sensation remains intact. Assessment and Plan (1) Acute CVA (cerebrovascular accident) Assessment & Plan: Case discussed with Dr. Arevalo, follow up MRI of the brain today. continue all current medical, physical, occupation, speech therapies. Status: Acute
[2017-02-15] MEDS: (Novolin R) Insulin Human Regular 100 units/ml vial SC SCH ×4 (08:13→22:00)
[2017-02-15 08:47] LABS: POTASSIUM 3.8 mmol/L (3.6-5.2)
[2017-02-15 08:49] LABS: ALB/GLOB RATIO 0.8 (1.0-2.1); BILIRUBIN,TOTAL 0.6 mg/dL (0.2-1.3); TOTAL PROTEIN 7.5 g/dL (6.3-8.3)
[2017-02-15] MEDS: Potassium Chloride 20 mEq/15 ml LIQ UD PO SCH (09:16)
--- NOTE | 2017-02-15 09:53 | CP.PCM.PN ---
Subjective - Date & Time of Evaluation Date of Evaluation: 02/15/17 Time of Evaluation: 06:45 - Subjective Subjective: Ai Williamson DO PGY1 - Cardiology Progress Note for Dr. Jaimes Patient seen and examined at bedside. Overnight, patient was restless and repeatedly tried to get out of bed to find his ; did not get much sleep at night. Today, patient is seen resting in bed, appears tired, lethargic. He denies any chest pain, SOB, palpitations, confusion, GARCIA, slurred speech. Objective - Vital Signs/Intake and Output Vital Signs (last 24 hours): Temp Pulse Resp BP Pulse Ox 98.3 F 57 L 18 156/78 H 98 02/15/17 07:35 02/15/17 07:35 02/15/17 07:35 02/15/17 09:15 02/15/17 07:35 Intake and Output: 02/15/17 02/15/17 06:59 18:59 Intake Total 320 Output Total 400 Balance -80 - Medications Medications: Current Medications Acetaminophen (Tylenol 325mg Tab) 650 mg PO Q8 PRN PRN Reason: Pain Last Admin: 02/13/17 20:51 Dose: 650 mg Apixaban (Eliquis) 2.5 mg PO BID [facility] Last Admin: 02/15/17 09:14 Dose: 2.5 mg Clopidogrel Bisulfate (Plavix) 75 mg PO DAILY [facility] Last Admin: 02/15/17 09:15 Dose: 75 mg Famotidine (Pepcid) 20 mg IVP DAILY [facility] Last Admin: 02/15/17 09:15 Dose: 20 mg Furosemide (Lasix) 40 mg IVP DAILY [facility] Last Admin: 02/15/17 09:15 Dose: 40 mg Hydralazine HCl (Apresoline) 25 mg PO TID [facility] Last Admin: 02/15/17 09:15 Dose: 25 mg Insulin Human Regular (Novolin R) 0 unit SC ACHS [facility] PRN Reason: Protocol Last Admin: 02/15/17 08:13 Dose: 4 unit Lactulose (Enulose) 20 gm PO BID [facility] Last Admin: 02/15/17 09:14 Dose: 20 gm Metoprolol Tartrate (Lopressor) 50 mg PO BID [facility] Last Admin: 02/15/17 09:14 Dose: 50 mg Potassium Chloride (Potassium Chloride Oral Soln) 20 meq PO DAILY [facility] Last Admin: 02/15/17 09:16 Dose: 20 meq Rosuvastatin Calcium (Crestor) 40 mg PO HS [facility] Last Admin: 02/14/17 22:11 Dose: 40 mg - Labs Labs: 02/15/17 07:33 02/15/17 07:33 PT 13.1 SECONDS (9.7-12.2) H 02/11/17 07:14 INR 1.2 02/11/17 07:14 APTT 65 SECONDS (21-34) H 02/12/17 05:14 - Constitutional Appears: Non-toxic, No Acute Distress, Chronically Ill, Other (lethargic) - Head Exam Head Exam: ATRAUMATIC, NORMOCEPHALIC - Eye Exam Eye Exam: EOMI, Normal appearance - ENT Exam ENT Exam: Mucous Membranes Moist - Neck Exam Neck Exam: Normal Inspection - Respiratory Exam Respiratory Exam: Rales (decreased since yesterday), NORMAL BREATHING PATTERN - Cardiovascular Exam Cardiovascular Exam: RRR, +S1, +S2 Additional comments: occasional PVCs - GI/Abdominal Exam GI & Abdominal Exam: Soft. absent: Tenderness - Extremities Exam Extremities Exam: Pedal Edema (trace). absent: Calf Tenderness Additional comments: Right great toe dressing in place, appears CDI - Neurological Exam Neurological Exam: Alert, Awake, CN II-XII Intact, Oriented x3 Neuro motor strength exam: Left Upper Extremity: 5, Right Upper Extremity: 5, Left Lower Extremity: 2/1, Right Lower Extremity: 2/1 - Psychiatric Exam Psychiatric exam: Normal Affect, Normal Mood Additional comments: tired, lethargic - Skin Skin Exam: Dry, Intact Assessment and Plan (1) NSTEMI (non-ST elevated myocardial infarction) Assessment & Plan: Patient is s/p PCI with JOVANNY placement in mLAD; currently asymptomatic - Patient had high grade stenosis of the LAD which was successfully revascularized with a JOVANNY, and high grade obtuse marginal disease which will be revascularized at a future intervention [place] 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, possible source of multifocal CVA; still pending MRI/MRA as part of neuro workup Continue BB, ASA, Plavix, Statin, lasix - Cannot give ACEi/ARB at this time due to PORTIA Continue eliquis 2.5g PO BID Status: Acute (2) Acute CVA (cerebrovascular accident) Assessment & Plan: Patient mental status and neurological neuro exam remains at baseline, with no acute changes post cath 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 Arevalo if patient cannot tolerate it; may not change the management, as patient requires lifetime anticoagulation regardless Continue Eliquis 2.5mg PO BID BP goal as below Further workup and management per Neurology (Dr. Arevalo), appreciate recs Status: Acute (3) Cardiogenic pulmonary edema Assessment & Plan: Orthopnea and signs of congestion improving; saturating well on O2 by NC - Recommend CPAP nightly for likely LATRELL Repeat BNP yesterday 3590, decreased from >6000 2 days prior; will require continued diuresis, decreased dose yesterday due to PORTIA - Continue lasix Status: Acute (4) CAD (coronary artery disease) Assessment & Plan: s/p PCI as above Status: Acute (5) HTN (hypertension) Assessment & Plan: BP elevated, but at goal; patient had CVA, no bleed noted on CT head BP goal SBP<185 and DBP<105 per neurology Continue metoprolol 50mg PO BID, as above Started hydralazine 25mg PO TID yesterday, which improved BP, but still significantly elevated - Increase to 50mg PO TID Continue to monitor BP and titrate medications as needed Patient has poor sleep, appears to become bradycardic and hypertensive overnight ; likely has LATRELL - Ordered CPAP nightly - Recommend outpatient polysomnogram to confirm diagnosis Status: Chronic (6) Dyslipidemia Assessment & Plan: Continue Statin; high dose for plaque stabilization Status: Chronic (7) Acute kidney injury Assessment & Plan: PORTIA acutely worsened s/p coronary angiography with PCI and diuresis (Cr 1.9-> 2.1->2.5->2.6) - Decrease dose of lasix yesterday Titrating medications and started CPAP to improve BP control to avoid hypertensive nephrosclerosis Continue to monitor Nephro on consult, appreciate recs Status: Acute (8) Osteomyelitis Assessment & Plan: Patient initially presented with R great toe osteomyelitis, now s/p amputation and revision amputation yesterday Patient tolerated procedure well, reportedly well vascularized, bleeding normally intraoperatively, low likelyhood of PAD contributing to poor wound healing Podiatry following Status: Acute (9) Diabetes mellitus Assessment & Plan: Management per primary team Maintain euglycemia Status: Chronic
--- NOTE | 2017-02-15 11:21 | CP.PCM.PN ---
Subjective - Date & Time of Evaluation Date of Evaluation: 02/15/17 Time of Evaluation: 09:00 - Subjective Subjective: Podiatry Progress Note - Dr. Tariq: 71 y/o male patient seen at bedside POD# 1 s/p right 1st metatarsal head resection. Patient is alert and awake and is in no acute distress. Patient states that he has no pain to his right foot at this time. Patient denies of any F/N/V/C/SOB/CP today. Patient is eager to go home. Patient denies of any other pedal complains at this time. Objective - Vital Signs/Intake and Output Vital Signs (last 24 hours): Temp Pulse Resp BP Pulse Ox 98.3 F 57 L 18 156/78 H 98 02/15/17 07:35 02/15/17 07:35 02/15/17 07:35 02/15/17 09:15 02/15/17 07:35 Intake and Output: 02/15/17 02/15/17 06:59 18:59 Intake Total 320 Output Total 400 Balance -80 - Medications Medications: Current Medications Acetaminophen (Tylenol 325mg Tab) 650 mg PO Q8 PRN PRN Reason: Pain Last Admin: 02/13/17 20:51 Dose: 650 mg Apixaban (Eliquis) 2.5 mg PO BID [facility] Last Admin: 02/15/17 09:14 Dose: 2.5 mg Clopidogrel Bisulfate (Plavix) 75 mg PO DAILY [facility] Last Admin: 02/15/17 09:15 Dose: 75 mg Famotidine (Pepcid) 20 mg IVP DAILY [facility] Last Admin: 02/15/17 09:15 Dose: 20 mg Furosemide (Lasix) 40 mg IVP DAILY [facility] Last Admin: 02/15/17 09:15 Dose: 40 mg Hydralazine HCl (Apresoline) 25 mg PO TID [facility] Last Admin: 02/15/17 09:15 Dose: 25 mg Insulin Human Regular (Novolin R) 0 unit SC ACHS [facility] PRN Reason: Protocol Last Admin: 02/15/17 08:13 Dose: 4 unit Lactulose (Enulose) 20 gm PO BID [facility] Last Admin: 02/15/17 09:14 Dose: 20 gm Metoprolol Tartrate (Lopressor) 50 mg PO BID [facility] Last Admin: 10/12/17 09:14 Dose: 50 mg Potassium Chloride (Potassium Chloride Oral Soln) 20 meq PO DAILY [facility] Last Admin: 02/15/17 09:16 Dose: 20 meq Rosuvastatin Calcium (Crestor) 40 mg PO HS [facility] Last Admin: 02/14/17 22:11 Dose: 40 mg - Labs Labs: 02/15/17 07:33 02/15/17 07:33 PT 13.1 SECONDS (9.7-12.2) H 02/11/17 07:14 INR 1.2 02/11/17 07:14 APTT 65 SECONDS (21-34) H 02/12/17 05:14 - Constitutional Appears: Well, Non-toxic, No Acute Distress - Extremities Exam Additional comments: Dressing clean, dry, and intact, sanguinous strikethrough to outer layer of dressing. Dressing re-enforced. Assessment and Plan - Assessment and Plan (Free Text) Assessment: 71 yo male patient POD # 1 s/p right 1st metatarsal head resection secondary to prior hallux amputation ischemia, 2/2 diabetic neuropathy Plan: Pt seen and evaluated. Chart, labs, and vitals reviewed. Afebrile, WBC= 14.7. Discussed with attending, Dr. Tariq in detail. Dressings left intact. Pts pot-operative condition is stable. Pt is stable from podiatric standpoint for discharge home. Will followup on outpatinet basis with attending, Dr. Tariq.
--- NOTE | 2017-02-15 18:02 | CP.PCM.PN ---
Subjective - Date & Time of Evaluation Date of Evaluation: 02/15/17 Time of Evaluation: 09:00 - Subjective Subjective: clincally same Objective - Vital Signs/Intake and Output Vital Signs (last 24 hours): Temp Pulse Resp BP Pulse Ox 98.1 F 71 20 160/82 H 96 02/15/17 15:00 02/15/17 15:00 02/15/17 15:00 02/15/17 15:00 02/15/17 15:00 Intake and Output: 02/15/17 02/15/17 06:59 18:59 Intake Total 320 240 Output Total 400 Balance -80 240 - Medications Medications: Current Medications Acetaminophen (Tylenol 325mg Tab) 650 mg PO Q8 PRN PRN Reason: Pain Last Admin: 02/13/17 20:51 Dose: 650 mg Apixaban (Eliquis) 2.5 mg PO BID [facility] Last Admin: 02/15/17 17:23 Dose: 2.5 mg Clopidogrel Bisulfate (Plavix) 75 mg PO DAILY [facility] Last Admin: 02/15/17 09:15 Dose: 75 mg Famotidine (Pepcid) 20 mg IVP DAILY [facility] Last Admin: 02/15/17 09:15 Dose: 20 mg Furosemide (Lasix) 40 mg IVP DAILY [facility] Last Admin: 02/15/17 09:15 Dose: 40 mg Hydralazine HCl (Apresoline) 25 mg PO TID [facility] Last Admin: 02/15/17 17:15 Dose: 25 mg Insulin Human Regular (Novolin R) 0 unit SC ACHS [facility] PRN Reason: Protocol Last Admin: 02/15/17 16:30 Dose: 10 unit Lactulose (Enulose) 20 gm PO BID [facility] Last Admin: 02/15/17 17:21 Dose: Not Given Metoprolol Tartrate (Lopressor) 50 mg PO BID [facility] Last Admin: 02/15/17 17:15 Dose: 50 mg Potassium Chloride (Potassium Chloride Oral Soln) 20 meq PO DAILY [facility] Last Admin: 02/15/17 09:16 Dose: 20 meq Rosuvastatin Calcium (Crestor) 40 mg PO HS [facility] Last Admin: 02/14/17 22:11 Dose: 40 mg - Labs Labs: 02/15/17 07:33 02/15/17 07:33 PT 13.1 SECONDS (9.7-12.2) H 02/11/17 07:14 INR 1.2 02/11/17 07:14 APTT 65 SECONDS (21-34) H 02/12/17 05:14 - Constitutional Appears: Well - Head Exam Head Exam: ATRAUMATIC, NORMAL INSPECTION, NORMOCEPHALIC - Eye Exam Eye Exam: EOMI, Normal appearance, PERRL Pupil Exam: NORMAL ACCOMODATION, PERRL - ENT Exam ENT Exam: Mucous Membranes Moist, Normal Exam - Neck Exam Neck Exam: Full ROM, Normal Inspection. absent: Lymphadenopathy - Respiratory Exam Respiratory Exam: Decreased Breath Sounds - Cardiovascular Exam Cardiovascular Exam: REGULAR RHYTHM, +S1, +S2 - GI/Abdominal Exam GI & Abdominal Exam: Soft, Diminished Bowel Sounds - Rectal Exam Rectal Exam: Deferred
--- NOTE | 2017-02-16 02:29 | OP ---
DATE OF SURGERY: 02/14/2017 PRIMARY SURGEON: Adrian Zamudio DPM [facility] OPERATOR: Leslie Floyd DPM, PGY-2 ANESTHESIOLOGIST: Dr. Orr ANESTHESIA TYPE: MAC IV sedation with local. PREOPERATIVE DIAGNOSIS: Right foot hallux amputation site ischemia. POSTOPERATIVE DIAGNOSIS: Right foot hallux amputation site ischemia. PROCEDURES PERFORMED: Right foot first metatarsal head resection. SPECIMEN: Right foot bone and soft tissue. INDICATIONS: The patient is a 71-year-old male with the above stated diagnosis. The patient has undergone prior right foot partial hallux amputation 13 days prior. Ischemic changes developed and the patient is now in need of surgical revision. The patient have exhausted of all conservative treatment options at this point and now needs further surgical intervention. The patient signed the surgical consent after careful explanation of risks, benefits, complications, and potential alternatives for proposed surgical procedure. No guarantees were either given nor employed. All the patient's and family's questions were answered to their satisfaction. PREPARATION: The patient's n.p.o. status was confirmed prior to bringing the patient to the operating room. The patient was brought into the operating room and placed on the operating room table in supine position. Once IV sedation was confirmed to have been achieved, the patient received a total of 20 mL of a 1:1 mixture of 2% lidocaine plain to 0.5% Marcaine plain in a local block type fashion to the right foot. Once local anesthetic was confirmed to have been achieved, the patient's right foot was then prepped and draped in the usual sterile manner and the procedure began. DESCRIPTION OF THE PROCEDURE: Attention was then directed to the distal aspect of the right foot first metatarsophalangeal joint where a racket-type incision was made using a number 15 blade. This incision was extended down to level of subcutaneous tissues with care being taken to avoid all vital neurovascular structures. All bleeders were cauterized and ligated as needed. At this time, a sharp electrocautery dissection was performed using needle point Bovie down to the level of bone where the first metatarsal was freed of its capsular ligamentous attachments. At this time, remaining aspect of the digit was disarticulated from the metatarsophalangeal joint, thus exposing the cartilaginous head of the hallux where ischemic changes were noted to the cartilaginous surface. At this time, an oscillating saw was introduced to the surgical field and an oblique-type osteotomy was performed starting at the distal dorsal surface terminating at the proximal plantar surface of the metatarsal neck region. At this time, the head of the first metatarsal was then excised and then passed from the operative field to be sent to pathology along with disarticulated digital specimen. At this time, sesamoid bones were appreciated and noted to be slightly atrophic. They were then sharply excised and passed from the operative field. Upon forward section of bone and nonviable soft tissue, bleeding subcutaneous and medullary bleeding was appreciated in a moderate amount. Surgical site was then flushed with copious amounts of sterile saline to hydrogen peroxide mixture. All excess bleeders were further cauterized as needed at this time. The incision site was then flushed again with hydrogen peroxide saline solution. All rough edges of the distal shaft of the first metatarsophalangeal joint were rasped, so no bony prominences were made. At this time, correction of surgical site ends were appreciated and it would be closed without tension. Incision site was then flushed with copious amounts of sterile saline. Subcutaneous tissue was then reapproximated using 1 Vicryl. Skin was reapproximated using 3-0 nylon. Allison drain was inserted into surgical site cavity and exiting plantarly to allow drainage of excess sanguinous bleeding content. Surgical site was then dressed with sterile 4 x 4 gauze and Kerlix and ABDs. POSTOPERATIVE CONDITION: The patient tolerated the anesthesia and procedure well and was escorted to the recovery room with vital signs stable and neurovascular status intact to the right foot. We will continue to follow up with this patient while they remain in-house. Leslie Floyd DPM [facility]
[2017-02-16 06:29] LABS: BASO % 0.4 % (0.0-2.0); EOS # 0.4 K/uL (0.0-0.7); HEMATOCRIT 30.3 % (35.0-51.0); LYMPH # 2.8 K/uL (1.0-4.3); MEAN CELL VOLUME 86.2 fL (80.0-94.0); MEAN CORPUSCULAR HEMOGLOBIN 28.4 pg (27.0-31.0); MEAN CORPUSCULAR HGB CONC 32.9 g/dL (33.0-37.0); MEAN PLATELET VOLUME 9.3 fL (7.2-11.7); MONO # 1.2 K/uL (0.0-0.8); MONO % 8.9 % (0.0-10.0); RED CELL DISTRIBUTION WIDTH 14.6 % (11.5-14.5); WHITE BLOOD COUNT 12.9 K/uL (4.8-10.8)
--- NOTE | 2017-02-16 07:34 | CP.PCM.PN ---
Subjective - Date & Time of Evaluation Date of Evaluation: 02/16/17 Time of Evaluation: 07:32 - Subjective Subjective: Ms. Campo was seen and examined at the bedside. He remains alert, oriented in all spheres. He denies any pain, headache, dizziness, lightheadedness, nausea, or vomiting. There is no untoward events overnight. Objective - Vital Signs/Intake and Output Vital Signs (last 24 hours): Temp Pulse Resp BP Pulse Ox 97.5 F L 68 18 162/79 H 95 02/16/17 04:26 02/16/17 04:44 02/16/17 04:26 02/16/17 04:26 02/16/17 04:26 Intake and Output: 02/16/17 02/16/17 06:59 18:59 Intake Total 300 Balance 300 - Medications Medications: Current Medications Acetaminophen (Tylenol 325mg Tab) 650 mg PO Q8 PRN PRN Reason: Pain Last Admin: 02/13/17 20:51 Dose: 650 mg Apixaban (Eliquis) 2.5 mg PO BID [facility] Last Admin: 02/15/17 17:23 Dose: 2.5 mg Clopidogrel Bisulfate (Plavix) 75 mg PO DAILY [facility] Last Admin: 02/15/17 09:15 Dose: 75 mg Famotidine (Pepcid) 20 mg PO DAILY [facility] Furosemide (Lasix) 40 mg IVP DAILY [facility] Last Admin: 02/15/17 09:15 Dose: 40 mg Hydralazine HCl (Apresoline) 25 mg PO TID [facility] Last Admin: 02/15/17 17:15 Dose: 25 mg Insulin Human Regular (Novolin R) 0 unit SC ACHS [facility] PRN Reason: Protocol Last Admin: 02/15/17 22:00 Dose: 2 unit Lactulose (Enulose) 20 gm PO BID [facility] Last Admin: 02/15/17 17:21 Dose: Not Given Metoprolol Tartrate (Lopressor) 50 mg PO BID [facility] Last Admin: 02/15/17 17:15 Dose: 50 mg Potassium Chloride (Potassium Chloride Oral Soln) 20 meq PO DAILY [facility] Last Admin: 02/15/17 09:16 Dose: 20 meq Rosuvastatin Calcium (Crestor) 40 mg PO HS [facility] Last Admin: 02/15/17 21:01 Dose: 40 mg - Labs Labs: 02/16/17 06:19 02/15/17 07:33 PT 13.1 SECONDS (9.7-12.2) H 02/11/17 07:14 INR 1.2 02/11/17 07:14 APTT 65 SECONDS (21-34) H 02/12/17 05:14 - Constitutional Appears: No Acute Distress - Head Exam Head Exam: ATRAUMATIC, NORMAL INSPECTION, NORMOCEPHALIC - Neurological Exam Neurological Exam: Alert, Awake, CN II-XII Intact, Oriented x3 Neuro motor strength exam: Left Upper Extremity: 4, Right Upper Extremity: 5, Left Lower Extremity: 5, Right Lower Extremity: 5 Additional comments: He follows all commands and sensation intact. Assessment and Plan (1) Acute CVA (cerebrovascular accident) Assessment & Plan: Case discussed with Dr. Arevalo, continue all current medical, physical, occupational, and speech therapies. Unable to perform MRI due to his newly coronary stent. There is no new recommendation from neurology. Status: Acute
[2017-02-16 07:36] LABS: POTASSIUM 3.7 mmol/L (3.6-5.2)
[2017-02-16 07:38] LABS: ALB/GLOB RATIO 0.8 (1.0-2.1); BILIRUBIN,TOTAL 0.5 mg/dL (0.2-1.3); TOTAL PROTEIN 7.1 g/dL (6.3-8.3)
[2017-02-16 07:39] LABS: CALCIUM 8.8 mg/dl (8.6-10.4)
[2017-02-16] MEDS: (Novolin R) Insulin Human Regular 100 units/ml vial SC SCH ×4 (08:17→22:20)
[2017-02-16] MEDS: Potassium Chloride 20 mEq/15 ml LIQ UD PO SCH (09:40)
--- NOTE | 2017-02-16 10:00 | CP.PCM.PN ---
Subjective - Date & Time of Evaluation Date of Evaluation: 02/16/17 Time of Evaluation: 09:00 - Subjective Subjective: Podiatry Progress Note - Dr. Tariq: 71 y/o male patient seen at bedside POD# 2 s/p right 1st metatarsal head resection. Patient is alert and awake and is in no acute distress. Patient states that he has no pain to his right foot at this time. Patient denies of any F/N/V/C/SOB/CP today. Patient is eager to go home. Patient denies of any new pedal complains at this time. Objective - Vital Signs/Intake and Output Vital Signs (last 24 hours): Temp Pulse Resp BP Pulse Ox 98.1 F 68 20 156/91 H 94 L 02/16/17 07:25 02/16/17 07:25 02/16/17 07:25 02/16/17 09:39 02/16/17 07:25 Intake and Output: 02/16/17 02/16/17 06:59 18:59 Intake Total 300 Balance 300 - Medications Medications: Current Medications Acetaminophen (Tylenol 325mg Tab) 650 mg PO Q8 PRN PRN Reason: Pain Last Admin: 02/13/17 20:51 Dose: 650 mg Apixaban (Eliquis) 2.5 mg PO BID [facility] Last Admin: 02/16/17 09:39 Dose: 2.5 mg Clopidogrel Bisulfate (Plavix) 75 mg PO DAILY [facility] Last Admin: 02/16/17 09:39 Dose: 75 mg Famotidine (Pepcid) 20 mg PO DAILY [facility] Last Admin: 02/16/17 09:39 Dose: 20 mg Furosemide (Lasix) 40 mg IVP DAILY [facility] Last Admin: 02/16/17 09:39 Dose: 40 mg Hydralazine HCl (Apresoline) 25 mg PO TID [facility] Last Admin: 02/16/17 09:39 Dose: 25 mg Insulin Human Regular (Novolin R) 0 unit SC ACHS [facility] PRN Reason: Protocol Last Admin: 02/16/17 08:17 Dose: 4 unit Lactulose (Enulose) 20 gm PO BID [facility] Last Admin: 02/16/17 09:39 Dose: 20 gm Metoprolol Tartrate (Lopressor) 50 mg PO BID [facility] Last Admin: 02/16/17 09:39 Dose: 50 mg Potassium Chloride (Potassium Chloride Oral Soln) 20 meq PO DAILY [facility] Last Admin: 02/16/17 09:40 Dose: 20 meq Rosuvastatin Calcium (Crestor) 40 mg PO HS [facility] Last Admin: 02/15/17 21:01 Dose: 40 mg - Labs Labs: 02/16/17 06:19 02/16/17 06:19 PT 13.1 SECONDS (9.7-12.2) H 02/11/17 07:14 INR 1.2 02/11/17 07:14 APTT 65 SECONDS (21-34) H 02/12/17 05:14 - Constitutional Appears: Well, Non-toxic, No Acute Distress - Extremities Exam Additional comments: Right foot focused. Dressing clean, dry, and intact. hematogenous strikethough to outer layer of dressing inline with drain site. VASC: DP and PT pulses are palpable 1/4. Mild non-pitting edema noted to right foot. Temperature gradient is warms to cool proximal to distal. DERM: Right foot amputation site visualized, skin remains stably approximated, absent signs of ischemic changes. Amputation site is warm to touch. Drain is productive with bloody drainage. All sutures remain intact. NEURO: Protective sensation grossly diminished. ORTHO: Mild tenderness on palpation of the surgical site - Neurological Exam Neurological Exam: Alert, Awake, Oriented x3 - Psychiatric Exam Psychiatric exam: Normal Affect, Normal Mood Assessment and Plan - Assessment and Plan (Free Text) Assessment: 71 yo male patient POD#2 s/p right foot 1st met head resection 2/2 diabetic neuropathy Plan: Patient is seen and evaluated at bedside with attending, Dr. Tariq, present. Chart, labs, and vitals reviewed. Afebrile WBC @ 12.9, decreased from yesterday. Pulled tosha drain. Cleansed surgical site with peroxide, dressed with saline wet-to-dry dressing and DSD. c/w offloading boots bilaterally. Strict non-weightbearing to right leg. c/w IV abx per ID Recommending transfer to [facility] facility, [facility]. Pt is stable form podiatry standpoint for discharge. Podiatry will continue to follow patient while inhouse.
--- NOTE | 2017-02-16 11:04 | CP.PCM.PN ---
Subjective - Date & Time of Evaluation Date of Evaluation: 02/16/17 Time of Evaluation: 07:35 - Subjective Subjective: Ai Williamson DO PGY1 - Cardiology Progress Note for Dr. Jaimes Patient seen and examined at bedside. No events overnight. Patient appears agitated, very frustrated with current situation, barely tolerating exam, but remains alert and oriented. Patient did not have MRI yesterday, reportedly because of recent stent implantation. He denies any CP, SOB, palpitations. Patient says he slept well yesterday with CPAP Objective - Vital Signs/Intake and Output Vital Signs (last 24 hours): Temp Pulse Resp BP Pulse Ox 98.1 F 68 20 156/91 H 94 L 02/16/17 07:25 02/16/17 07:25 02/16/17 07:25 02/16/17 09:39 02/16/17 07:25 Intake and Output: 02/16/17 02/16/17 06:59 18:59 Intake Total 300 Balance 300 - Medications Medications: Current Medications Acetaminophen (Tylenol 325mg Tab) 650 mg PO Q8 PRN PRN Reason: Pain Last Admin: 02/13/17 20:51 Dose: 650 mg Apixaban (Eliquis) 2.5 mg PO BID [facility] Last Admin: 02/16/17 09:39 Dose: 2.5 mg Clopidogrel Bisulfate (Plavix) 75 mg PO DAILY [facility] Last Admin: 02/16/17 09:39 Dose: 75 mg Famotidine (Pepcid) 20 mg PO DAILY [facility] Last Admin: 02/16/17 09:39 Dose: 20 mg Furosemide (Lasix) 40 mg IVP DAILY [facility] Last Admin: 02/16/17 09:39 Dose: 40 mg Hydralazine HCl (Apresoline) 25 mg PO TID [facility] Last Admin: 02/16/17 09:39 Dose: 25 mg Insulin Human Regular (Novolin R) 0 unit SC ACHS [facility] PRN Reason: Protocol Last Admin: 02/16/17 08:17 Dose: 4 unit Lactulose (Enulose) 20 gm PO BID [facility] Last Admin: 02/16/17 09:39 Dose: 20 gm Metoprolol Tartrate (Lopressor) 50 mg PO BID [facility] Last Admin: 02/16/17 09:39 Dose: 50 mg Potassium Chloride (Potassium Chloride Oral Soln) 20 meq PO DAILY [facility] Last Admin: 02/16/17 09:40 Dose: 20 meq Rosuvastatin Calcium (Crestor) 40 mg PO HS [facility] Last Admin: 02/15/17 21:01 Dose: 40 mg - Labs Labs: 02/16/17 06:19 02/16/17 06:19 PT 13.1 SECONDS (9.7-12.2) H 02/11/17 07:14 INR 1.2 02/11/17 07:14 APTT 65 SECONDS (21-34) H 02/12/17 05:14 - Constitutional Appears: Non-toxic, No Acute Distress, Chronically Ill - Head Exam Head Exam: ATRAUMATIC, NORMOCEPHALIC - Eye Exam Eye Exam: EOMI, Normal appearance - ENT Exam ENT Exam: Mucous Membranes Moist - Neck Exam Neck Exam: Normal Inspection - Respiratory Exam Respiratory Exam: Clear to Ausculation Bilateral, NORMAL BREATHING PATTERN - Cardiovascular Exam Cardiovascular Exam: RRR, +S1, +S2 - GI/Abdominal Exam GI & Abdominal Exam: Soft. absent: Tenderness - Extremities Exam Extremities Exam: absent: Calf Tenderness, Pedal Edema Additional comments: Right great toe dressing in place, appears CDI - Neurological Exam Neurological Exam: Alert, Awake, Oriented x3 Neuro motor strength exam: Left Upper Extremity: 5, Right Upper Extremity: 5, Left Lower Extremity: 3, Right Lower Extremity: 3 - Psychiatric Exam Psychiatric exam: Agitated, Normal Affect - Skin Skin Exam: Dry, Intact Assessment and Plan (1) NSTEMI (non-ST elevated myocardial infarction) Assessment & Plan: Patient is s/p PCI with JOVANNY placement in mLAD; currently asymptomatic - Patient had high grade stenosis of the LAD which was successfully revascularized with a JOVANNY, and high grade obtuse marginal disease which will be revascularized at a future intervention [place] 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, possible source of multifocal CVA; still pending MRI/MRA as part of neuro workup Continue BB, ASA, Plavix, Statin, lasix - Cannot give ACEi/ARB at this time due to PORTIA Continue eliquis 2.5g PO BID Status: Acute (2) Acute CVA (cerebrovascular accident) Assessment & Plan: Patient mental status and neurological neuro exam remains at baseline, with no acute changes post cath 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 Arevalo), appreciate recs Status: Acute (3) Cardiogenic pulmonary edema Assessment & Plan: Orthopnea and signs of congestion improving; saturating well on O2 by NC Repeat BNP was 3590, decreased from >6000 2 days prior; will require continued diuresis, decreased dose due to PORTIA - Hold lasix due to PORTIA Symptoms of congestion appear resolved; in setting of worsening renal failure, will hold lasix, and start gentle hydration; monitor respiratory status closely Status: Acute (4) CAD (coronary artery disease) Assessment & Plan: s/p PCI as above Status: Acute (5) HTN (hypertension) Assessment & Plan: BP elevated, but at goal; patient had CVA, no bleed noted on CT head BP goal SBP<185 and DBP<105 per neurology Continue metoprolol 50mg PO BID, as above Continue Hydralazine 50mg PO Q8; BP improved today Continue to monitor BP and titrate medications as needed Start nightly CPAP yesterday; patient had improved sleep; and VSS Status: Chronic (6) Dyslipidemia Assessment & Plan: Continue Statin; high dose for plaque stabilization Status: Chronic (7) Acute kidney injury Assessment & Plan: PORTIA acutely worsened s/p coronary angiography with PCI and diuresis (Cr 1.9-> 2.1->2.5->2.6->3.3) - Hold lasix, as above - Start gentle hydration, NS@50cc/hr - Patient will have to remain in the hospital due to acute renal failure, until function trends towards improvement Titrating medications and started CPAP to improve BP control to avoid hypertensive nephrosclerosis Continue to monitor Nephro on consult, appreciate recs Status: Acute (8) Osteomyelitis Assessment & Plan: Patient initially presented with R great toe osteomyelitis, now s/p amputation and revision amputation 02/14/17 Patient tolerated procedure well, reportedly well vascularized, bleeding normally intraoperatively, low likelyhood of PAD contributing to poor wound healing Podiatry following Status: Acute (9) Diabetes mellitus Assessment & Plan: Poorly controlled Management per primary team Maintain euglycemia Status: Chronic (10) Sleep apnea Assessment & Plan: Patient has poor sleep, appears to become bradycardic and hypertensive overnight ; likely has LATRELL Started CPAP nightly yesterday; patient reports improved sleep, tolerated CPAP well Recommend outpatient polysomnogram to confirm diagnosis Status: Acute
[2017-02-16] MEDS: Sodium Chloride 0.9% 1,000 ML IV SCH (12:16)
--- NOTE | 2017-02-16 16:39 | CP.PCM.PN ---
Subjective - Date & Time of Evaluation Date of Evaluation: 02/16/17 Time of Evaluation: 16:36 - Subjective Subjective: PGY-[address] Green's service: Pt seen and examined at bedside. Nursing reports pt BG have been elevated over course, but over >500 recently. Pt found lying in bed this AM, alert and oriented. He tolerated first night of CPAP without difficulty per nursing. He denies chest pain, palpitation, SOB, abd pain, N/V/D/C. Objective - Vital Signs/Intake and Output Vital Signs (last 24 hours): Temp Pulse Resp BP Pulse Ox 98.1 F 68 20 156/91 H 94 L 02/16/17 07:25 02/16/17 07:25 02/16/17 07:25 02/16/17 09:39 02/16/17 07:25 Intake and Output: 02/16/17 02/16/17 06:59 18:59 Intake Total 300 750 Balance 300 750 - Medications Medications: Current Medications Acetaminophen (Tylenol 325mg Tab) 650 mg PO Q8 PRN PRN Reason: Pain Last Admin: 02/13/17 20:51 Dose: 650 mg Apixaban (Eliquis) 2.5 mg PO BID [facility] Last Admin: 02/16/17 09:39 Dose: 2.5 mg Clopidogrel Bisulfate (Plavix) 75 mg PO DAILY [facility] Last Admin: 02/16/17 09:39 Dose: 75 mg Famotidine (Pepcid) 20 mg PO DAILY [facility] Last Admin: 02/16/17 09:39 Dose: 20 mg Hydralazine HCl (Apresoline) 25 mg PO TID [facility] Last Admin: 02/16/17 14:05 Dose: 25 mg Sodium Chloride (Sodium Chloride 0.9%) 1,000 mls @ 50 mls/hr IV .Q20H [facility] Last Admin: 02/16/17 12:16 Dose: 50 mls/hr Insulin Glargine (Lantus) 20 unit SC HS [facility] Insulin Human Regular (Novolin R) 0 unit SC ACHS [facility] PRN Reason: Protocol Last Admin: 02/16/17 11:52 Dose: 12 unit Lactulose (Enulose) 20 gm PO BID [facility] Last Admin: 02/16/17 09:39 Dose: 20 gm Metoprolol Tartrate (Lopressor) 50 mg PO BID [facility] Last Admin: 02/16/17 09:39 Dose: 50 mg Potassium Chloride (Potassium Chloride Oral Soln) 20 meq PO DAILY [facility] Last Admin: 02/16/17 09:40 Dose: 20 meq Rosuvastatin Calcium (Crestor) 40 mg PO HS [facility] Last Admin: 02/15/17 21:01 Dose: 40 mg - Labs Labs: 02/16/17 06:19 02/16/17 06:19 PT 13.1 SECONDS (9.7-12.2) H 02/11/17 07:14 INR 1.2 02/11/17 07:14 APTT 65 SECONDS (21-34) H 02/12/17 05:14 - Constitutional Appears: Non-toxic, No Acute Distress, Chronically Ill - Head Exam Head Exam: ATRAUMATIC, NORMOCEPHALIC - Eye Exam Eye Exam: EOMI, Normal appearance. absent: Scleral icterus - ENT Exam ENT Exam: Mucous Membranes Moist - Neck Exam Neck Exam: Normal Inspection Additional comments: no jvd - Respiratory Exam Respiratory Exam: Clear to Ausculation Bilateral. absent: Rales, Rhonchi, Wheezes, Respiratory Distress - Cardiovascular Exam Cardiovascular Exam: REGULAR RHYTHM, +S1, +S2 - GI/Abdominal Exam GI & Abdominal Exam: Soft, Normal Bowel Sounds - Extremities Exam Extremities Exam: absent: Calf Tenderness, Pedal Edema - Neurological Exam Neurological Exam: Alert, Awake, Oriented x3 - Psychiatric Exam Psychiatric exam: Normal Affect - Skin Skin Exam: Dry, Normal Color Assessment and Plan - Assessment and Plan (Free Text) Plan: NSTEMI Occurred on 02/01: [employer] for resp distress EKG: NSTEMI, positive troponins Cardiology Dr. 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 Jaimes notes: "stent placement does not necessarily preclude MRI/MRA" BB, ASA, Plavix, Statin, lasix - Hold LIZZETH/ARB due to PORTIA Continue eliquis 2.5g PO BID Acute CVA History of three prior CVAs Worsening left side weakness/AMS prior to heart catheterization Dr. Arevalo, neuro health analytics consultant: help appreciated Likely 2/2 to thromboembolic disease vs small-vessel disease - [place] (02/09/17): EF 60-65%; Grade IV/V aortic atheroma in arch, possible source of multifocal CVA; - f/u MRI/MRA Continue Eliquis 2.5mg PO BID PT: needs max assist to stand up, needs constant cures, continue PT; - D/C recommendation: CATHY Acute kidney injury PORTIA acutely worsened s/p coronary angiography with PCI and diuresis Cr: 3.3 today, 1.3 on admission - GFR ~[address] Green - f/u reccs Cardio Consult: Dr. Jaimes, reccs appreciated - Hold Lasix - Start gentle hydration, NS@50cc/hr - Continue monitoring renal function in hospital Hypertension BP elevated - in light of CVA will defer to neuro reccs Metoprolol 50mg PO BID, as above Hydralazine 50mg PO Q8 Osteomyelitis Afebrile WBC 12.9 today, Right great toe osteomyelitis on presentation - s/p right metatarsal head resection POD #2 Podiatry consult, Dr. Tariq: - non-weightbearing, offloading boots b/l Dr. Morrow, ID health analytics consultant: - Ceftriaxone 2gm IV Q24H Type two Diabetes mellitus Poorly controlled A1C: 7.9 (01/30/17), but BG > 500 recently Cannot restart home PO meds due to Creatinine Start Lantus 20u HS [facility] Obstructive Sleep apnea Tolerated CPAP overnight - will recommend outpatient polysomnography for confirmation Orlando Shah PGY-2 All medical management per Dr. Green.
--- NOTE | 2017-02-16 17:05 | CP.PCM.PN ---
Subjective - Date & Time of Evaluation Date of Evaluation: 02/16/17 Time of Evaluation: 07:00 - Subjective Subjective: awake alert confused at times no fever weakness left side back to baseline Objective - Vital Signs/Intake and Output Vital Signs (last 24 hours): Temp Pulse Resp BP Pulse Ox 98.4 F 69 20 152/69 H 94 L 02/16/17 15:45 02/16/17 15:45 02/16/17 15:45 02/16/17 15:45 02/16/17 07:25 Intake and Output: 02/16/17 02/16/17 06:59 18:59 Intake Total 300 750 Balance 300 750 - Medications Medications: Current Medications Acetaminophen (Tylenol 325mg Tab) 650 mg PO Q8 PRN PRN Reason: Pain Last Admin: 02/13/17 20:51 Dose: 650 mg Apixaban (Eliquis) 2.5 mg PO BID [facility] Last Admin: 02/16/17 09:39 Dose: 2.5 mg Clopidogrel Bisulfate (Plavix) 75 mg PO DAILY [facility] Last Admin: 02/16/17 09:39 Dose: 75 mg Famotidine (Pepcid) 20 mg PO DAILY [facility] Last Admin: 02/16/17 09:39 Dose: 20 mg Hydralazine HCl (Apresoline) 25 mg PO TID [facility] Last Admin: 02/16/17 14:05 Dose: 25 mg Sodium Chloride (Sodium Chloride 0.9%) 1,000 mls @ 50 mls/hr IV .Q20H [facility] Last Admin: 02/16/17 12:16 Dose: 50 mls/hr Insulin Glargine (Lantus) 20 unit SC [facility] Insulin Human Regular (Novolin R) 0 unit SC [facility] PRN Reason: Protocol Last Admin: 02/16/17 16:50 Dose: 12 unit Lactulose (Enulose) 20 gm PO BID [facility] Last Admin: 02/16/17 09:39 Dose: 20 gm Metoprolol Tartrate (Lopressor) 50 mg PO BID [facility] Last Admin: 02/16/17 09:39 Dose: 50 mg Potassium Chloride (Potassium Chloride Oral Soln) 20 meq PO DAILY [facility] Last Admin: 02/16/17 09:40 Dose: 20 meq Rosuvastatin Calcium (Crestor) 40 mg PO HS [facility] Last Admin: 02/15/17 21:01 Dose: 40 mg - Labs Labs: 02/16/17 06:19 02/16/17 06:19 PT 13.1 SECONDS (9.7-12.2) H 02/11/17 07:14 INR 1.2 02/11/17 07:14 APTT 65 SECONDS (21-34) H 02/12/17 05:14 - Constitutional Appears: Non-toxic, Chronically Ill - Head Exam Head Exam: NORMOCEPHALIC - Eye Exam Eye Exam: PERRL - ENT Exam ENT Exam: Mucous Membranes Dry - Neck Exam Neck Exam: absent: Lymphadenopathy - Respiratory Exam Respiratory Exam: Decreased Breath Sounds - Cardiovascular Exam Cardiovascular Exam: REGULAR RHYTHM - GI/Abdominal Exam GI & Abdominal Exam: Distended, Soft - Rectal Exam Rectal Exam: Deferred - Exam Exam: NORMAL INSPECTION - Extremities Exam Extremities Exam: Pedal Edema. absent: Calf Tenderness, Tenderness - Back Exam Back Exam: absent: CVA tenderness (L), CVA tenderness (R) - Neurological Exam Neurological Exam: Alert, Altered, CN II-XII Intact Neuro motor strength exam: Left Upper Extremity: 3, Right Upper Extremity: 4, Left Lower Extremity: 3, Right Lower Extremity: 4 - Psychiatric Exam Psychiatric exam: Depressed - Skin Skin Exam: Dry Assessment and Plan (1) Cellulitis Status: Acute (2) Osteomyelitis Status: Acute (3) Toe gangrene Status: Acute (4) Abscess of great toe Status: Acute (5) Diabetes mellitus Status: Chronic - Assessment and Plan (Free Text) Assessment: iv antibiotic renewed
[2017-02-16] MEDS ORDERED: (Lantus) Insulin Glargine, Recombinant SC SCH ×2 (18:00→22:00)
[2017-02-16] MEDS: cefTRIAXone 2 GM in Sodium Chloride 0.9% 100 ML IVPB SCH (18:53)
--- NOTE | 2017-02-16 19:34 | CP.PCM.PN ---
Subjective - Date & Time of Evaluation Date of Evaluation: 02/16/17 Time of Evaluation: 08:40 - Subjective Subjective: clinically same Objective - Vital Signs/Intake and Output Vital Signs (last 24 hours): Temp Pulse Resp BP Pulse Ox 98.4 F 69 20 152/69 H 94 L 02/16/17 15:45 02/16/17 15:45 02/16/17 15:45 02/16/17 15:45 02/16/17 07:25 Intake and Output: 02/16/17 02/17/17 18:59 06:59 Intake Total 750 Balance 750 - Medications Medications: Current Medications Acetaminophen (Tylenol 325mg Tab) 650 mg PO Q8 PRN PRN Reason: Pain Last Admin: 02/16/17 19:09 Dose: 650 mg Apixaban (Eliquis) 2.5 mg PO BID [facility] Last Admin: 02/16/17 18:41 Dose: 2.5 mg Clopidogrel Bisulfate (Plavix) 75 mg PO DAILY [facility] Last Admin: 02/16/17 09:39 Dose: 75 mg Famotidine (Pepcid) 20 mg PO DAILY [facility] Last Admin: 02/16/17 09:39 Dose: 20 mg Hydralazine HCl (Apresoline) 25 mg PO TID [facility] Last Admin: 02/16/17 18:42 Dose: 25 mg Sodium Chloride (Sodium Chloride 0.9%) 1,000 mls @ 50 mls/hr IV .Q20H [facility] Last Admin: 02/16/17 12:16 Dose: 50 mls/hr Ceftriaxone Sodium 2 gm/ (Sodium Chloride) 100 mls @ 100 mls/hr IVPB Q24H [facility] Last Admin: 02/16/17 18:53 Dose: 100 mls/hr Insulin Glargine (Lantus) 20 unit SC HS [facility] Insulin Human Regular (Novolin R) 0 unit SC ACHS [facility] PRN Reason: Protocol Last Admin: 02/16/17 16:50 Dose: 12 unit Lactulose (Enulose) 20 gm PO BID [facility] Last Admin: 02/16/17 19:14 Dose: 20 gm Metoprolol Tartrate (Lopressor) 50 mg PO BID [facility] Last Admin: 02/16/17 09:39 Dose: 50 mg Potassium Chloride (Potassium Chloride Oral Soln) 20 meq PO DAILY [facility] Last Admin: 10/13/17 09:40 Dose: 20 meq Rosuvastatin Calcium (Crestor) 40 mg PO HS [facility] Last Admin: 02/15/17 21:01 Dose: 40 mg - Labs Labs: 02/16/17 06:19 02/16/17 06:19 PT 13.1 SECONDS (9.7-12.2) H 02/11/17 07:14 INR 1.2 02/11/17 07:14 APTT 65 SECONDS (21-34) H 02/12/17 05:14 - Constitutional Appears: Well - Head Exam Head Exam: ATRAUMATIC, NORMAL INSPECTION, NORMOCEPHALIC - Eye Exam Eye Exam: EOMI, Normal appearance, PERRL Pupil Exam: NORMAL ACCOMODATION, PERRL - ENT Exam ENT Exam: Mucous Membranes Moist, Normal Exam - Neck Exam Neck Exam: Full ROM, Normal Inspection. absent: Lymphadenopathy - Respiratory Exam Respiratory Exam: Decreased Breath Sounds - Cardiovascular Exam Cardiovascular Exam: REGULAR RHYTHM, +S1, +S2 - GI/Abdominal Exam GI & Abdominal Exam: Soft, Diminished Bowel Sounds - Rectal Exam Rectal Exam: Deferred
--- NOTE | 2017-02-17 00:35 | CON ---
DATE: LOCATION: Room 653. 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 He has been referred now for endocrine evaluation and diabetic management of marked hyperglycemic accelerations as noted. PAST MEDICAL HISTORY: As mentioned above. History of type 2 diabetes, currently on combination of Janumet given at 6500 b.i.d., with glipizide given as 5 mg b.i.d., history of hypertension, cardiovascular disease, dyslipidemia, history of cerebrovascular disease, coronary artery disease, peripheral arterial disease and vasculopathy, history of diabetic retinopathy, and polyneuropathy as noted. Moreover, there is also history of chronic kidney disease secondary to diabetic and hypertensive nephrosclerosis. FAMILY HISTORY: Positive for diabetes and hypertension. SOCIAL HISTORY: The patient has supportive family. No known substance use. REVIEW OF SYSTEMS: As mentioned above. Admits to childhood body weakness with easy fatigability and tiredness and suboptimal energy level. Also admits to increasing somnolence and lethargy worse in the last 3 days prior to admission. PHYSICAL EXAMINATION: GENERAL: This is an overweight male in no apparent distress. VITAL SIGNS: Blood pressure 140/70, pulse of 70 beats per minute and regular, temperature 98, respirations 20, height is 6 feet 3 inches, weight is 260 pounds. HEENT: Head is normocephalic. Eyes; anicteric with pink conjunctivae. Funduscopy is not possible at this time. Ears, nose and throat otherwise normal. NECK: Supple. Thyroid gland is normal in size. No carotid bruits, no cervical adenopathy. CARDIOPULMONARY: Adynamic precordium. S1 and S2 is rapid and regular. LUNGS: Clear to auscultation. ABDOMEN: Flat and soft with positive bowel sounds. EXTREMITIES: No peripheral edema. Pulses are +2 bilaterally. LABORATORY DATA: Chemistry shows BUN of 49, sodium 136, potassium 3.7, chloride 95, CO2 of 22, glucose 289, and creatinine 3.3. His glucose values have raised from 354 to over 500 mg per dL. ASSESSMENT AND PLAN: This is a 71-year-old male with lower extremity cellulitis presenting here with hyperglycemic state and dehydration with underlying chronic kidney disease from underlying chronic obstructive lung disease of many years ago. His glucose levels have been quite erratic at this time, but have improved accordingly. Plan of management was discussed with the patient and staff. We will modify his current insulin regimen for more physiologic dose replacement combination. We will start him Lantus given as 20 units subcutaneous at bedtime as ordered. We will also add Novolog to cover the meal time accelerations with Novolog given as 20 units subcutaneous t.i.d. before meals as given. We will titrate incrementally as indicated to optimize metabolic control. We will also obtain baseline lipid panel of thyroid studies and try to adjust his dose regimen if indicated. We will obtain serial chemistries and supplement accordingly as needed. We will also add more physiologic basal and bolus insulin drug combination with Levemir given as 20 units subcutaneous at bedtime daily as ordered. This is a 71-year-old male with uncontrolled and decompensated type 2 insulin requiring diabetes presenting here with marked hyperglycemic accelerations versus base intercurrent steroid therapy as noted. We will obtain a baseline thyroid studies, adjust his dose regimen accordingly and also obtain serial chemistries as often accordingly as needed. We will follow and advise. Nayeli Lane MD
[2017-02-17 07:12] LABS: BASO % 0.3 % (0.0-2.0); EOS # 0.5 K/uL (0.0-0.7); EOS % 3.9 % (0.0-4.0); HEMATOCRIT 30.5 % (35.0-51.0); LYMPH # 2.4 K/uL (1.0-4.3); LYMPH % 19.9 % (20.0-40.0); MEAN CELL VOLUME 85.2 fL (80.0-94.0); MEAN CORPUSCULAR HEMOGLOBIN 28.4 pg (27.0-31.0); MEAN CORPUSCULAR HGB CONC 33.3 g/dL (33.0-37.0); MEAN PLATELET VOLUME 9.2 fL (7.2-11.7); MONO # 0.9 K/uL (0.0-0.8); MONO % 7.6 % (0.0-10.0); RED CELL DISTRIBUTION WIDTH 14.4 % (11.5-14.5); WHITE BLOOD COUNT 11.9 K/uL (4.8-10.8)
[2017-02-17] MEDS ORDERED: (Novolog) Insulin Aspart, Recombinant 100 u/ml 10 ml vial SC SCH (07:30)
[2017-02-17] MEDS: Sodium Chloride 0.9% 1,000 ML IV SCH (07:45)
[2017-02-17 07:58] LABS: POTASSIUM 3.6 mmol/L (3.6-5.2)
[2017-02-17 08:00] LABS: ALB/GLOB RATIO 0.8 (1.0-2.1); BILIRUBIN,TOTAL 0.4 mg/dL (0.2-1.3); TOTAL PROTEIN 7.4 g/dL (6.3-8.3)
[2017-02-17 08:01] LABS: MAGNESIUM 1.7 mg/dL (1.6-2.3); PHOSPHOROUS 4.7 mg/dL (2.5-4.5)
[2017-02-17] MEDS: (Novolog) Insulin Aspart, Recombinant 100 u/ml 10 ml vial SC SCH ×6 (08:51→22:25)
[2017-02-17] MEDS: Potassium Chloride 20 mEq/15 ml LIQ UD PO SCH (10:32)
--- NOTE | 2017-02-17 11:00 | CP.PCM.PN ---
Subjective - Date & Time of Evaluation Date of Evaluation: 02/17/17 Time of Evaluation: 11:00 - Subjective Subjective: Podiatry Progress Note - Dr. Tate 71 y/o male patient seen at bedside POD# 3 s/p right 1st metatarsal head resection. Patient seen resting in bed comfortably at time of visit. Patient is accompanied by his and son at bedside. Patient denies any pain to his right foot currently, is concerned that he saw dried blood on his dressing. Patient is eager to go home. Patient not wearing offloading boots at time of visit. Patient denies N/V/F/D/C/SOB/calf pain. Offers no other pedal complaints at this time. Objective - Vital Signs/Intake and Output Vital Signs (last 24 hours): Temp Pulse Resp BP Pulse Ox 97.5 F L 63 18 185/99 H 99 02/17/17 07:02 02/17/17 07:02 02/17/17 07:02 02/17/17 07:02 02/17/17 07:02 Intake and Output: 02/17/17 02/17/17 06:59 18:59 Intake Total 480 Output Total 1000 Balance -520 - Medications Medications: Current Medications Acetaminophen (Tylenol 325mg Tab) 650 mg PO Q8 PRN PRN Reason: Pain Last Admin: 02/17/17 05:44 Dose: 650 mg Apixaban (Eliquis) 2.5 mg PO BID [facility] Last Admin: 02/17/17 10:34 Dose: 2.5 mg Clopidogrel Bisulfate (Plavix) 75 mg PO DAILY [facility] Last Admin: 02/17/17 10:29 Dose: 75 mg Famotidine (Pepcid) 20 mg PO DAILY [facility] Last Admin: 02/17/17 10:29 Dose: 20 mg Hydralazine HCl (Apresoline) 25 mg PO TID [facility] Last Admin: 02/17/17 10:30 Dose: 25 mg Sodium Chloride (Sodium Chloride 0.9%) 1,000 mls @ 50 mls/hr IV .Q20H [facility] Last Admin: 02/16/17 12:16 Dose: 50 mls/hr Ceftriaxone Sodium 2 gm/ (Sodium Chloride) 100 mls @ 100 mls/hr IVPB Q24H [facility] Last Admin: 02/16/17 18:53 Dose: 100 mls/hr Insulin Aspart (Novolog) 12 unit SC AC [facility] Last Admin: 02/17/17 08:51 Dose: 12 unit Insulin Aspart (Novolog) 0 unit SC ACHS [facility] PRN Reason: Protocol Last Admin: 02/17/17 08:51 Dose: 2 unit Insulin Glargine (Lantus) 20 unit SC HS [facility] Last Admin: 02/16/17 22:24 Dose: 20 units Lactulose (Enulose) 20 gm PO BID [facility] Last Admin: 02/17/17 10:30 Dose: 20 gm Metoprolol Tartrate (Lopressor) 50 mg PO BID [facility] Last Admin: 02/17/17 10:30 Dose: 50 mg Potassium Chloride (Potassium Chloride Oral Soln) 20 meq PO DAILY [facility] Last Admin: 02/17/17 10:32 Dose: 20 meq Rosuvastatin Calcium (Crestor) 40 mg PO HS [facility] Last Admin: 02/16/17 22:31 Dose: Not Given - Labs Labs: 02/17/17 07:02 02/17/17 07:02 PT 13.1 SECONDS (9.7-12.2) H 02/11/17 07:14 INR 1.2 02/11/17 07:14 APTT 65 SECONDS (21-34) H 02/12/17 05:14 - Constitutional Appears: Well, Non-toxic, No Acute Distress - Extremities Exam Additional comments: Right lower extremity focused physical exam: Dressing to right foot appears clean/dry/intact with strikethrough noted VASC: DP and PT pulses are palpable 1/4. Mild non-pitting edema noted to right foot. Temperature gradient warm to warm. CFT <3 seconds to lesser digits. DERM: Right foot hallux amputation surgical incision is well-approximated with sutures intact and no wound dehiscence noted except for distal most aspect - noted to have separation of sutures and granular base noted , exposed 2/2 removal of tosha drain. NEURO: Protective sensation grossly diminished. ORTHO: Mild tenderness on palpation of the surgical site - Neurological Exam Neurological Exam: Alert, Awake, Oriented x3 - Psychiatric Exam Psychiatric exam: Normal Affect, Normal Mood Assessment and Plan - Assessment and Plan (Free Text) Assessment: 71 yo male patient POD#3 s/p right foot 1st met head resection 2/2 diabetic neuropathy Plan: Patient seen and evaluated at bedside Discussed with attending, Dr. Tate Labs and vitals reviewed = WBC 11.9 (trending downwards, yesterday 02/16 @ 12.9) , afebrile Surgical site was cleansed with peroxide, and dressed with saline wet to dry dressing - Start betadine wet to dry dressings Q12H C/w offloading boots bilaterally. Strict non-weightbearing to right leg. C/w IV abx per ID - Ceftriaxone Recommending transfer to [facility] facility, [facility]. Pt is stable form podiatry standpoint for discharge. Podiatry will continue to follow patient while inhouse.
--- NOTE | 2017-02-17 12:47 | PN ---
LOCATION: Room # 653. SUBJECTIVE: This is a 71-year-old male with recent uncontrolled type 2 insulin-requiring diabetes, now being followed closely for metabolic management. He has ongoing IV antibiotics for right lower extremity cellulitis as noted and given. He underwent a recent partial resection of the right hallux wound and also the fifth metatarsal area debridement as noted. He is being referred now for diabetic evaluation because of marked hyperglycemic acceleration as noted thereof. His glucose levels today have ranged from 341 to 364 mg/dL. The fasting glucose was 329 as noted. The latest chemistry showed a BUN 48, sodium 134, potassium 3.6, chloride 96, CO2 of 27, glucose 289, creatinine 2.8. ASSESSMENT: This is a 71-year-old male with right lower extremity cellulitis and gangrene of the right hallux area and underwent partial resection of the same and now being followed closely for metabolic management because of recent hyperglycemic accelerations as noted thereof. He also has diabetic microvascular complications of retinopathy, polyneuropathy and nephropathy with underlying chronic kidney disease as noted. Moreover, he has diabetic microvascular complications of coronary artery disease and peripheral arterial disease and vasculopathy. PLAN: Plan of management as discussed with the patient's staff. We will modify once again his basal and bolus insulin regimen to optimize metabolic control. We will increase the basal insulin with Lantus to be given at 34 units subcutaneous at bedtime daily, to start tonight. We will also increase the Novolog to 40 units subcutaneous t.i.d. before meals to start at the lunch time today as ordered. We will continue the low dose correction scale using Novolog insulin as given, to beat hypoglycemia and detailed orders have been given. We will continue also the IV hydration to optimize his fluid and electrolyte losses and replenish them accordingly as noted. We will obtain serial chemistries and supplement accordingly as needed. We will follow. Nayeli Lane MD
[2017-02-17] MEDS ORDERED: (Novolog) Insulin Aspart, Recombinant 100 u/ml 10 ml vial SC ONE (13:36)
[2017-02-17] MEDS: cefTRIAXone 2 GM in Sodium Chloride 0.9% 100 ML IVPB SCH (18:38)
--- NOTE | 2017-02-17 18:56 | CP.PCM.PN ---
Subjective - Date & Time of Evaluation Date of Evaluation: 02/17/17 Time of Evaluation: 09:00 - Subjective Subjective: clinically same Objective - Vital Signs/Intake and Output Vital Signs (last 24 hours): Temp Pulse Resp BP Pulse Ox 97.3 F L 63 20 164/78 H 98 02/17/17 15:15 02/17/17 15:15 02/17/17 15:15 02/17/17 15:15 02/17/17 15:15 Intake and Output: 02/17/17 02/17/17 06:59 18:59 Intake Total 480 890 Output Total 1000 1600 Balance -520 -710 - Medications Medications: Current Medications Acetaminophen (Tylenol 325mg Tab) 650 mg PO Q8 PRN PRN Reason: Pain Last Admin: 02/17/17 05:44 Dose: 650 mg Apixaban (Eliquis) 2.5 mg PO BID [facility] Last Admin: 02/17/17 18:39 Dose: 2.5 mg Clopidogrel Bisulfate (Plavix) 75 mg PO DAILY [facility] Last Admin: 02/17/17 10:29 Dose: 75 mg Famotidine (Pepcid) 20 mg PO DAILY [facility] Last Admin: 02/17/17 10:29 Dose: 20 mg Hydralazine HCl (Apresoline) 25 mg PO TID [facility] Last Admin: 02/17/17 18:40 Dose: 25 mg Sodium Chloride (Sodium Chloride 0.9%) 1,000 mls @ 50 mls/hr IV .Q20H [facility] Last Admin: 02/17/17 07:45 Dose: Not Given Ceftriaxone Sodium 2 gm/ (Sodium Chloride) 100 mls @ 100 mls/hr IVPB Q24H [facility] Last Admin: 02/17/17 18:38 Dose: 100 mls/hr Insulin Aspart (Novolog) 0 unit SC ACHS [facility] PRN Reason: Protocol Last Admin: 02/17/17 18:42 Dose: Not Given Insulin Aspart (Novolog) 14 unit SC AC [facility] Last Admin: 02/17/17 18:43 Dose: 14 unit Insulin Glargine (Lantus) 34 unit SC HS [facility] Lactulose (Enulose) 20 gm PO BID [facility] Last Admin: 02/17/17 18:39 Dose: 20 gm Metoprolol Tartrate (Lopressor) 50 mg PO BID [facility] Last Admin: 02/17/17 18:41 Dose: 50 mg Potassium Chloride (Potassium Chloride Oral Soln) 20 meq PO DAILY [facility] Last Admin: 02/17/17 10:32 Dose: 20 meq Rosuvastatin Calcium (Crestor) 40 mg PO HS [facility] Last Admin: 02/16/17 22:31 Dose: Not Given - Labs Labs: 02/17/17 07:02 02/17/17 07:02 PT 13.1 SECONDS (9.7-12.2) H 02/11/17 07:14 INR 1.2 02/11/17 07:14 APTT 65 SECONDS (21-34) H 02/12/17 05:14
[2017-02-17] MEDS ORDERED: (Lantus) Insulin Glargine, Recombinant SC SCH (22:00)
[2017-02-18] MEDS: (Novolog) Insulin Aspart, Recombinant 100 u/ml 10 ml vial SC SCH ×7 (07:58→21:43)
[2017-02-18 08:35] LABS: BASO % 0.3 % (0.0-2.0); EOS # 0.4 K/uL (0.0-0.7); EOS % 3.1 % (0.0-4.0); HEMATOCRIT 30.8 % (35.0-51.0); LYMPH # 1.7 K/uL (1.0-4.3); LYMPH % 13.7 % (20.0-40.0); MEAN CELL VOLUME 85.9 fL (80.0-94.0); MEAN CORPUSCULAR HEMOGLOBIN 28.6 pg (27.0-31.0); MEAN CORPUSCULAR HGB CONC 33.4 g/dL (33.0-37.0); MEAN PLATELET VOLUME 9.6 fL (7.2-11.7); MONO # 0.9 K/uL (0.0-0.8); MONO % 7.1 % (0.0-10.0); RED CELL DISTRIBUTION WIDTH 14.5 % (11.5-14.5); WHITE BLOOD COUNT 12.7 K/uL (4.8-10.8)
[2017-02-18 09:22] LABS: POTASSIUM 3.5 mmol/L (3.6-5.2)
[2017-02-18 09:24] LABS: BILIRUBIN,TOTAL 0.4 mg/dL (0.2-1.3)
[2017-02-18 09:25] LABS: ALB/GLOB RATIO 0.7 (1.0-2.1); CALCIUM 8.9 mg/dl (8.6-10.4); PHOSPHOROUS 3.7 mg/dL (2.5-4.5); TOTAL PROTEIN 7.4 g/dL (6.3-8.3)
[2017-02-18 09:26] LABS: MAGNESIUM 1.7 mg/dL (1.6-2.3)
[2017-02-18] MEDS: Potassium Chloride 20 mEq/15 ml LIQ UD PO SCH (10:43)
[2017-02-18] MEDS: Sodium Chloride 0.9% 1,000 ML IV SCH (10:47)
--- NOTE | 2017-02-18 12:27 | CP.PCM.PN ---
Subjective - Date & Time of Evaluation Date of Evaluation: 02/18/17 Time of Evaluation: 12:37 - Subjective Subjective: Podiatry Consult Note - Dr. Hernandez 41 year old male patient seen at bedside concerning right foot non-healing post- surgical wound following right great toe amputation (DOS 12/08/16). Patient seen resting comfortably at time of visit. Patient offers no pedal complaints at this visit. Patient aware he is scheduled for surgery tomorrow afternoon with Dr. Hernandez. Patient aware he will be NPO past midnight tonight. Patient denies N/V /F/D/C/SOB/calf pain. Objective - Vital Signs/Intake and Output Vital Signs (last 24 hours): Temp Pulse Resp BP Pulse Ox 98.8 F 72 18 173/80 H 97 02/18/17 07:30 02/18/17 07:30 02/18/17 07:30 02/18/17 07:30 02/18/17 07:30 Intake and Output: 02/18/17 02/18/17 06:59 18:59 Intake Total 1410 Output Total 1600 Balance -190 - Medications Medications: Current Medications Acetaminophen (Tylenol 325mg Tab) 650 mg PO Q8 PRN PRN Reason: Pain Last Admin: 02/17/17 05:44 Dose: 650 mg Apixaban (Eliquis) 2.5 mg PO BID [facility] Last Admin: 02/18/17 10:42 Dose: 2.5 mg Clopidogrel Bisulfate (Plavix) 75 mg PO DAILY [facility] Last Admin: 02/18/17 10:43 Dose: 75 mg Famotidine (Pepcid) 20 mg PO DAILY [facility] Last Admin: 02/18/17 10:42 Dose: 20 mg Hydralazine HCl (Apresoline) 25 mg PO TID [facility] Last Admin: 02/18/17 10:43 Dose: 25 mg Sodium Chloride (Sodium Chloride 0.9%) 1,000 mls @ 50 mls/hr IV .Q20H [facility] Last Admin: 02/18/17 10:47 Dose: 50 mls/hr Ceftriaxone Sodium 2 gm/ (Sodium Chloride) 100 mls @ 100 mls/hr IVPB Q24H [facility] Last Admin: 02/17/17 18:38 Dose: 100 mls/hr Insulin Aspart (Novolog) 0 unit SC ACHS [facility] PRN Reason: Protocol Last Admin: 02/18/17 07:58 Dose: Not Given Insulin Aspart (Novolog) 14 unit SC AC [facility] Last Admin: 02/18/17 08:35 Dose: 14 unit Insulin Glargine (Lantus) 40 unit SC [facility] Lactulose (Enulose) 20 gm PO BID [facility] Last Admin: 02/18/17 10:44 Dose: 20 gm Metoprolol Tartrate (Lopressor) 50 mg PO BID [facility] Last Admin: 02/18/17 10:42 Dose: 50 mg Potassium Chloride (Potassium Chloride Oral Soln) 20 meq PO DAILY [facility] Last Admin: 02/18/17 10:43 Dose: 20 meq Rosuvastatin Calcium (Crestor) 40 mg PO HS [facility] Last Admin: 02/17/17 22:39 Dose: 40 mg - Labs Labs: 02/18/17 08:22 02/18/17 08:22 PT 13.1 SECONDS (9.7-12.2) H 02/11/17 07:14 INR 1.2 02/11/17 07:14 APTT 65 SECONDS (21-34) H 02/12/17 05:14 - Constitutional Appears: Well, Non-toxic, No Acute Distress - Extremities Exam Additional comments: Right lower extremity focused. VASC: DP and PT pulses fully palpable graded 2/4. No pitting edema noted. DERM: Full thickness ulceration noted at great toe amputation site measuring 2 x 0.5cm Wound base is fibro-granular, absent and purulent drainage. No javier- wound erythema noted. No malodor noted. NEURO: Protective sensation grossly diminished. MUSK: Silverskoid test reveals gastroc-equinus . No other gross deformities noted - Neurological Exam Neurological Exam: Alert, Awake, Oriented x3 - Psychiatric Exam Psychiatric exam: Normal Affect, Normal Mood Assessment and Plan - Assessment and Plan (Free Text) Assessment: 41 year old male with right foot non-healing amputation site. Plan: Patient seen and evaluated Discussed with attending, Dr. Hernandez Labs and vitals reviewed = afebrile Bactroban applied to wound and dressed with DSD To OR on tomorrow, 02/19 for revisional 1st metatarsal head resection - Dr. Morrow requesting bone biopsy Continue abx per ID - Ceftriaxone; patient will need minimum 7 days post op Follow up medical clearance - Spoke with ELIAN Lowery on Saturday 02/17- will obtain clearance this weekend , also plan to hold heparin Patient will be NPO past midnight on Sunday. Podiatry will continue to follow patient while in house
[2017-02-18] MEDS ORDERED: Potassium Chloride 20 mEq ER Tab PO ONE ×2 (13:45→17:00)
--- NOTE | 2017-02-18 14:42 | CP.PCM.PN ---
Subjective - Date & Time of Evaluation Date of Evaluation: 02/18/17 Time of Evaluation: 07:00 - Subjective Subjective: improving slowly iv rx in progress Objective - Vital Signs/Intake and Output Vital Signs (last 24 hours): Temp Pulse Resp BP Pulse Ox 98.8 F 72 18 173/80 H 97 02/18/17 07:30 02/18/17 07:30 02/18/17 07:30 02/18/17 07:30 02/18/17 07:30 Intake and Output: 02/18/17 02/18/17 06:59 18:59 Intake Total 1410 Output Total 1600 Balance -190 - Medications Medications: Current Medications Acetaminophen (Tylenol 325mg Tab) 650 mg PO Q8 PRN PRN Reason: Pain Last Admin: 02/17/17 05:44 Dose: 650 mg Apixaban (Eliquis) 2.5 mg PO BID [facility] Last Admin: 02/18/17 10:42 Dose: 2.5 mg Clopidogrel Bisulfate (Plavix) 75 mg PO DAILY [facility] Last Admin: 02/18/17 10:43 Dose: 75 mg Famotidine (Pepcid) 20 mg PO DAILY [facility] Last Admin: 02/18/17 10:42 Dose: 20 mg Hydralazine HCl (Apresoline) 25 mg PO TID [facility] Last Admin: 02/18/17 10:43 Dose: 25 mg Sodium Chloride (Sodium Chloride 0.9%) 1,000 mls @ 50 mls/hr IV .Q20H [facility] Last Admin: 02/18/17 10:47 Dose: 50 mls/hr Ceftriaxone Sodium 2 gm/ (Sodium Chloride) 100 mls @ 100 mls/hr IVPB Q24H [facility] Last Admin: 02/17/17 18:38 Dose: 100 mls/hr Insulin Aspart (Novolog) 0 unit SC ACHS [facility] PRN Reason: Protocol Last Admin: 02/18/17 12:30 Dose: Not Given Insulin Aspart (Novolog) 14 unit SC AC [facility] Last Admin: 02/18/17 12:45 Dose: 14 unit Insulin Glargine (Lantus) 40 unit SC HS [facility] Lactulose (Enulose) 20 gm PO BID [facility] Last Admin: 02/18/17 10:44 Dose: 20 gm Metoprolol Tartrate (Lopressor) 50 mg PO BID [facility] Last Admin: 02/18/17 10:42 Dose: 50 mg Potassium Chloride (Potassium Chloride Oral Soln) 20 meq PO DAILY [facility] Last Admin: 02/18/17 10:43 Dose: 20 meq Rosuvastatin Calcium (Crestor) 40 mg PO HS [facility] Last Admin: 02/17/17 22:39 Dose: 40 mg - Labs Labs: 02/18/17 08:22 02/18/17 08:22 PT 13.1 SECONDS (9.7-12.2) H 02/11/17 07:14 INR 1.2 02/11/17 07:14 APTT 65 SECONDS (21-34) H 02/12/17 05:14 - Constitutional Appears: Non-toxic, Chronically Ill - Head Exam Head Exam: NORMOCEPHALIC - Eye Exam Eye Exam: PERRL - ENT Exam ENT Exam: Mucous Membranes Dry - Neck Exam Neck Exam: absent: Lymphadenopathy - Respiratory Exam Respiratory Exam: Decreased Breath Sounds - Cardiovascular Exam Cardiovascular Exam: REGULAR RHYTHM - GI/Abdominal Exam GI & Abdominal Exam: Distended, Soft - Rectal Exam Rectal Exam: Deferred - Exam Exam: NORMAL INSPECTION - Extremities Exam Extremities Exam: absent: Pedal Edema - Back Exam Back Exam: absent: CVA tenderness (L), CVA tenderness (R) - Neurological Exam Neurological Exam: Alert, Awake, Oriented x3 - Psychiatric Exam Psychiatric exam: Normal Mood - Skin Skin Exam: Dry Assessment and Plan (1) Cellulitis Status: Acute (2) Osteomyelitis Status: Acute (3) Toe gangrene Status: Acute (4) Abscess of great toe Status: Acute (5) Diabetes mellitus Status: Chronic
--- NOTE | 2017-02-18 15:11 | PN ---
DATE: ENDOCRINOLOGY FOLLOWUP NOTE LOCATION: Room 653. SUBJECTIVE: This is a 71-year-old male with recent uncontrolled type 2 insulin requiring diabetes, now being followed closely for metabolic management. His glycemic levels are fluctuating as noted thereof and the latest glucose levels have ranged from 255 to 281 mg/dL; it was 322 at bedtime last night as noted. LABORATORY DATA: The latest chemistry shows a BUN of 37, sodium 136, potassium was 3.5, chloride 101, CO2 26, glucose 237, and creatinine 2.2. ASSESSMENT AND PLAN: His ongoing IV antibiotic management for right lower extremity cellulitis and underwent a recent right partial resection of the hallux and metatarsal bone as noted. So at this time, we will modify once again his basal and bolus insulin regimen and increase the Lantus to 40 units subcutaneous at bedtime daily to start tonight. We will also continue the low dose correction scale using Novolin insulin that is given. Moreover, we will continue the Novolog given as 14 units subcutaneous t.i.d. before meals as ordered. We will titrate incrementally as indicated to optimize metabolic control. We will follow and advise accordingly. Nayeli Lane MD
[2017-02-18] MEDS: cefTRIAXone 2 GM in Sodium Chloride 0.9% 100 ML IVPB SCH (18:44)
--- NOTE | 2017-02-18 19:35 | CP.PCM.PN ---
Subjective - Date & Time of Evaluation Date of Evaluation: 02/18/17 Time of Evaluation: 08:40 - Subjective Subjective: clinically same Objective - Vital Signs/Intake and Output Vital Signs (last 24 hours): Temp Pulse Resp BP Pulse Ox 98.6 F 66 20 187/86 H 99 02/18/17 15:00 02/18/17 16:00 02/18/17 15:00 02/18/17 15:00 02/18/17 15:00 Intake and Output: 02/18/17 02/19/17 18:59 06:59 Intake Total 700 Balance 700 - Medications Medications: Current Medications Acetaminophen (Tylenol 325mg Tab) 650 mg PO Q8 PRN PRN Reason: Pain Last Admin: 02/18/17 18:37 Dose: 650 mg Apixaban (Eliquis) 2.5 mg PO BID [facility] Last Admin: 02/18/17 18:35 Dose: 2.5 mg Clopidogrel Bisulfate (Plavix) 75 mg PO DAILY [facility] Last Admin: 02/18/17 10:43 Dose: 75 mg Famotidine (Pepcid) 20 mg PO DAILY [facility] Last Admin: 02/18/17 10:42 Dose: 20 mg Hydralazine HCl (Apresoline) 25 mg PO TID [facility] Last Admin: 02/18/17 18:35 Dose: 25 mg Sodium Chloride (Sodium Chloride 0.9%) 1,000 mls @ 50 mls/hr IV .Q20H [facility] Last Admin: 02/18/17 10:47 Dose: 50 mls/hr Ceftriaxone Sodium 2 gm/ (Sodium Chloride) 100 mls @ 100 mls/hr IVPB Q24H [facility] Last Admin: 02/18/17 18:44 Dose: 100 mls/hr Insulin Aspart (Novolog) 0 unit SC ACHS [facility] PRN Reason: Protocol Last Admin: 02/18/17 18:37 Dose: Not Given Insulin Aspart (Novolog) 14 unit SC AC [facility] Last Admin: 02/18/17 18:36 Dose: 14 unit Insulin Glargine (Lantus) 40 unit SC HS [facility] Lactulose (Enulose) 20 gm PO BID [facility] Last Admin: 02/18/17 18:36 Dose: 20 gm Metoprolol Tartrate (Lopressor) 50 mg PO BID [facility] Last Admin: 02/18/17 18:36 Dose: 50 mg Potassium Chloride (Potassium Chloride Oral Soln) 20 meq PO DAILY [facility] Last Admin: 02/18/17 10:43 Dose: 20 meq Rosuvastatin Calcium (Crestor) 40 mg PO HS [facility] Last Admin: 02/17/17 22:39 Dose: 40 mg - Labs Labs: 02/18/17 08:22 02/18/17 08:22 PT 13.1 SECONDS (9.7-12.2) H 02/11/17 07:14 INR 1.2 02/11/17 07:14 APTT 65 SECONDS (21-34) H 02/12/17 05:14 - Constitutional Appears: Well - Head Exam Head Exam: ATRAUMATIC, NORMAL INSPECTION, NORMOCEPHALIC - Eye Exam Eye Exam: EOMI, Normal appearance, PERRL Pupil Exam: NORMAL ACCOMODATION, PERRL - ENT Exam ENT Exam: Mucous Membranes Moist, Normal Exam - Neck Exam Neck Exam: Full ROM, Normal Inspection. absent: Lymphadenopathy - Respiratory Exam Respiratory Exam: Decreased Breath Sounds - Cardiovascular Exam Cardiovascular Exam: REGULAR RHYTHM, +S1, +S2 - GI/Abdominal Exam GI & Abdominal Exam: Soft, Diminished Bowel Sounds - Rectal Exam Rectal Exam: Deferred
[2017-02-18] MEDS: (Lantus) Insulin Glargine, Recombinant SC SCH (21:42)
--- NOTE | 2017-02-18 21:58 | CP.PCM.PN ---
Subjective - Date & Time of Evaluation Date of Evaluation: 02/18/17 Time of Evaluation: 12:30 - Subjective Subjective: Podiatry Progress Note - Dr. Tate 71 y/o male patient seen at bedside POD# 4 s/p right 1st metatarsal head resection. Patient seen resting in bed comfortably at time of visit. Patient is accompanied by his . Patient remains with 1:1 sitter. Per nursing, patient took off offloading boots and dressing shortly after yesterday's visit. Patient states the dressing made his foot too hot. Patient denies any pain to his right foot currently. Patient is eager to go home and start walking again. Patient not wearing offloading boots at time of visit. Patient denies N/V/F/D/C/SOB/ calf pain. Offers no other pedal complaints at this time. Objective - Vital Signs/Intake and Output Vital Signs (last 24 hours): Temp Pulse Resp BP Pulse Ox 98.6 F 66 20 187/86 H 99 02/18/17 15:00 02/18/17 16:00 02/18/17 15:00 02/18/17 15:00 02/18/17 15:00 Intake and Output: 02/18/17 02/19/17 18:59 06:59 Intake Total 700 Balance 700 - Medications Medications: Current Medications Acetaminophen (Tylenol 325mg Tab) 650 mg PO Q8 PRN PRN Reason: Pain Last Admin: 02/18/17 18:37 Dose: 650 mg Apixaban (Eliquis) 2.5 mg PO BID [facility] Last Admin: 02/18/17 18:35 Dose: 2.5 mg Clopidogrel Bisulfate (Plavix) 75 mg PO DAILY [facility] Last Admin: 02/18/17 10:43 Dose: 75 mg Famotidine (Pepcid) 20 mg PO DAILY [facility] Last Admin: 02/18/17 10:42 Dose: 20 mg Hydralazine HCl (Apresoline) 25 mg PO TID [facility] Last Admin: 02/18/17 18:35 Dose: 25 mg Sodium Chloride (Sodium Chloride 0.9%) 1,000 mls @ 50 mls/hr IV .Q20H [facility] Last Admin: 02/18/17 10:47 Dose: 50 mls/hr Ceftriaxone Sodium 2 gm/ (Sodium Chloride) 100 mls @ 100 mls/hr IVPB Q24H [facility] Last Admin: 02/18/17 18:44 Dose: 100 mls/hr Insulin Aspart (Novolog) 0 unit SC ACHS [facility] PRN Reason: Protocol Last Admin: 02/18/17 21:43 Dose: Not Given Insulin Aspart (Novolog) 14 unit SC AC [facility] Last Admin: 02/18/17 18:36 Dose: 14 unit Insulin Glargine (Lantus) 40 unit SC HS [facility] Last Admin: 02/18/17 21:42 Dose: 40 units Lactulose (Enulose) 20 gm PO BID [facility] Last Admin: 02/18/17 18:36 Dose: 20 gm Metoprolol Tartrate (Lopressor) 50 mg PO BID [facility] Last Admin: 02/18/17 18:36 Dose: 50 mg Potassium Chloride (Potassium Chloride Oral Soln) 20 meq PO DAILY [facility] Last Admin: 02/18/17 10:43 Dose: 20 meq Rosuvastatin Calcium (Crestor) 40 mg PO HS [facility] Last Admin: 02/18/17 21:42 Dose: 40 mg - Labs Labs: 02/18/17 08:22 02/18/17 08:22 PT 13.1 SECONDS (9.7-12.2) H 02/11/17 07:14 INR 1.2 02/11/17 07:14 APTT 65 SECONDS (21-34) H 02/12/17 05:14 - Constitutional Appears: Well, Non-toxic, No Acute Distress - Extremities Exam Additional comments: Right lower extremity focused physical exam: Dressing to right foot appears clean/dry/intact with no strikethrough noted VASC: DP and PT pulses are palpable 1/4. Mild non-pitting edema noted to right foot. Temperature gradient warm to warm. CFT <3 seconds to lesser digits. DERM: Right foot hallux amputation surgical incision is well-approximated with sutures intact and no wound separation noted except for distal most aspect - noted to have separation of sutures and granular base noted, exposed 2/2 removal of tosha drain. NEURO: Protective sensation grossly diminished. ORTHO: Mild tenderness on palpation of the surgical site - Neurological Exam Neurological Exam: Alert, Awake, Oriented x3 - Psychiatric Exam Psychiatric exam: Normal Affect, Normal Mood Assessment and Plan - Assessment and Plan (Free Text) Assessment: 71 yo male patient POD#4 s/p right foot 1st met head resection 2/2 diabetic neuropathy Plan: Patient seen and evaluated at bedside Discussed with attending, Dr. Tate Labs and vitals reviewed = WBC 12.7 (increasing, yesterday 02/17 @ 11.9), afebrile Surgical site was cleansed with peroxide, and dressed with betadine wet to dry dressing - Continue betadine wet to dry dressings Q12H C/w offloading boots bilaterally. Strict non-weightbearing to right leg. C/w IV abx per ID - Ceftriaxone Recommending transfer to [facility] facility, [facility]. Podiatry will continue to follow patient while inhouse.
[2017-02-19] MEDS: Sodium Chloride 0.9% 1,000 ML IV SCH (02:31)
[2017-02-19 06:38] LABS: BASO # 0.1 K/uL (0.0-0.2); BASO % 0.5 % (0.0-2.0); EOS # 0.4 K/uL (0.0-0.7); EOS % 3.1 % (0.0-4.0); HEMATOCRIT 30.6 % (35.0-51.0); LYMPH # 2.5 K/uL (1.0-4.3); LYMPH % 20.2 % (20.0-40.0); MEAN CELL VOLUME 85.1 fL (80.0-94.0); MEAN CORPUSCULAR HEMOGLOBIN 28.7 pg (27.0-31.0); MEAN CORPUSCULAR HGB CONC 33.7 g/dL (33.0-37.0); MEAN PLATELET VOLUME 9.6 fL (7.2-11.7); MONO # 1.1 K/uL (0.0-0.8); MONO % 9.1 % (0.0-10.0); RED CELL DISTRIBUTION WIDTH 14.5 % (11.5-14.5); WHITE BLOOD COUNT 12.5 K/uL (4.8-10.8)
--- NOTE | 2017-02-19 07:30 | CP.PCM.PN ---
Subjective - Date & Time of Evaluation Date of Evaluation: 02/19/17 Time of Evaluation: 07:27 - Subjective Subjective: Mr. Campo was seen and examined at the bedside. He is alert, oriented in all spheres. He denies any headache, dizziness, lightheadedness, but claims of occasional pain of his right foot. Right foot s/p surgery. He stated of wanting to go home. Suggested to start with physical therapy to evaluate his gait stability. There was no no untoward events overnight. Objective - Vital Signs/Intake and Output Vital Signs (last 24 hours): Temp Pulse Resp BP Pulse Ox 98 F 70 20 159/72 H 97 02/19/17 04:08 02/19/17 04:08 02/19/17 04:08 02/19/17 04:08 02/18/17 23:36 Intake and Output: 02/19/17 02/19/17 06:59 18:59 Intake Total 1270 Output Total 600 Balance 670 - Medications Medications: Current Medications Acetaminophen (Tylenol 325mg Tab) 650 mg PO Q8 PRN PRN Reason: Pain Last Admin: 02/19/17 02:27 Dose: 650 mg Apixaban (Eliquis) 2.5 mg PO BID [facility] Last Admin: 02/18/17 18:35 Dose: 2.5 mg Clopidogrel Bisulfate (Plavix) 75 mg PO DAILY [facility] Last Admin: 02/18/17 10:43 Dose: 75 mg Famotidine (Pepcid) 20 mg PO DAILY [facility] Last Admin: 02/18/17 10:42 Dose: 20 mg Hydralazine HCl (Apresoline) 25 mg PO TID [facility] Last Admin: 02/18/17 18:35 Dose: 25 mg Sodium Chloride (Sodium Chloride 0.9%) 1,000 mls @ 50 mls/hr IV .Q20H [facility] Last Admin: 02/19/17 02:31 Dose: Not Given Ceftriaxone Sodium 2 gm/ (Sodium Chloride) 100 mls @ 100 mls/hr IVPB Q24H [facility] Last Admin: 02/18/17 18:44 Dose: 100 mls/hr Insulin Aspart (Novolog) 0 unit SC ACHS [facility] PRN Reason: Protocol Last Admin: 02/18/17 21:43 Dose: Not Given Insulin Aspart (Novolog) 14 unit SC AC [facility] Last Admin: 02/18/17 18:36 Dose: 14 unit Insulin Glargine (Lantus) 40 unit SC [facility] Last Admin: 02/18/17 21:42 Dose: 40 units Lactulose (Enulose) 20 gm PO BID [facility] Last Admin: 02/18/17 18:00 Dose: Not Given Metoprolol Tartrate (Lopressor) 50 mg PO BID [facility] Last Admin: 02/18/17 18:36 Dose: 50 mg Potassium Chloride (Potassium Chloride Oral Soln) 20 meq PO DAILY [facility] Last Admin: 02/18/17 10:43 Dose: 20 meq Rosuvastatin Calcium (Crestor) 40 mg PO HS [facility] Last Admin: 02/18/17 21:42 Dose: 40 mg - Labs Labs: 02/19/17 06:26 02/18/17 08:22 PT 13.1 SECONDS (9.7-12.2) H 02/11/17 07:14 INR 1.2 02/11/17 07:14 APTT 65 SECONDS (21-34) H 02/12/17 05:14 - Constitutional Appears: No Acute Distress - Head Exam Head Exam: ATRAUMATIC, NORMAL INSPECTION, NORMOCEPHALIC - Neurological Exam Neurological Exam: Alert, Awake, CN II-XII Intact, Oriented x3 Neuro motor strength exam: Left Upper Extremity: 5, Right Upper Extremity: 5, Left Lower Extremity: 5, Right Lower Extremity: 5 Additional comments: He is more alert with no episodes of agitation. He is able to follow commands. Sensation is intact. Assessment and Plan (1) Acute CVA (cerebrovascular accident) Assessment & Plan: Case discussed with Dr. Arevalo, Continue all current medical, physical, and speech therapies. Recommends to start with occupational therapy. Recommends for the patient to go to an acute rehab. for more physical, occupational, and speech therapies. Status: Acute
[2017-02-19 07:37] LABS: POTASSIUM 4.3 mmol/L (3.6-5.2)
[2017-02-19 07:39] LABS: ALB/GLOB RATIO 0.8 (1.0-2.1); BILIRUBIN,TOTAL 0.4 mg/dL (0.2-1.3); TOTAL PROTEIN 7.3 g/dL (6.3-8.3)
[2017-02-19 07:40] LABS: CALCIUM 8.9 mg/dl (8.6-10.4)
[2017-02-19] MEDS: (Novolog) Insulin Aspart, Recombinant 100 u/ml 10 ml vial SC SCH ×7 (08:07→21:46)
--- NOTE | 2017-02-19 09:06 | CP.PCM.PN ---
Subjective - Date & Time of Evaluation Date of Evaluation: 02/19/17 Time of Evaluation: 09:05 - Subjective Subjective: PGY-[address] Green's service: Pt seen and examined at bedside. Nursing reports no acute events overnight. Patient found resting comfortably in bed with at bedside. Patient denies chest pain, palpitations, SOB, abdominal pain, N/V or pain in feet. Pt asking when he can get out of the hospital. Objective - Vital Signs/Intake and Output Vital Signs (last 24 hours): Temp Pulse Resp BP Pulse Ox 97.3 F L 70 18 150/65 98 02/19/17 07:30 02/19/17 07:30 02/19/17 07:30 02/19/17 07:30 02/19/17 07:30 Intake and Output: 02/19/17 02/19/17 06:59 18:59 Intake Total 1270 Output Total 600 Balance 670 - Medications Medications: Current Medications Acetaminophen (Tylenol 325mg Tab) 650 mg PO Q8 PRN PRN Reason: Pain Last Admin: 02/19/17 02:27 Dose: 650 mg Apixaban (Eliquis) 2.5 mg PO BID [facility] Last Admin: 02/18/17 18:35 Dose: 2.5 mg Clopidogrel Bisulfate (Plavix) 75 mg PO DAILY [facility] Last Admin: 02/18/17 10:43 Dose: 75 mg Famotidine (Pepcid) 20 mg PO DAILY [facility] Last Admin: 02/18/17 10:42 Dose: 20 mg Hydralazine HCl (Apresoline) 25 mg PO TID [facility] Last Admin: 02/18/17 18:35 Dose: 25 mg Sodium Chloride (Sodium Chloride 0.9%) 1,000 mls @ 50 mls/hr IV .Q20H [facility] Last Admin: 02/19/17 02:31 Dose: Not Given Ceftriaxone Sodium 2 gm/ (Sodium Chloride) 100 mls @ 100 mls/hr IVPB Q24H [facility] Last Admin: 02/18/17 18:44 Dose: 100 mls/hr Insulin Aspart (Novolog) 0 unit SC ACHS [facility] PRN Reason: Protocol Last Admin: 02/19/17 08:07 Dose: Not Given Insulin Aspart (Novolog) 14 unit SC AC [facility] Last Admin: 02/18/17 18:36 Dose: 14 unit Insulin Glargine (Lantus) 40 unit SC [facility] Last Admin: 02/18/17 21:42 Dose: 40 units Lactulose (Enulose) 20 gm PO BID [facility] Last Admin: 02/18/17 18:00 Dose: Not Given Metoprolol Tartrate (Lopressor) 50 mg PO BID [facility] Last Admin: 02/18/17 18:36 Dose: 50 mg Potassium Chloride (Potassium Chloride Oral Soln) 20 meq PO DAILY [facility] Last Admin: 02/18/17 10:43 Dose: 20 meq Rosuvastatin Calcium (Crestor) 40 mg PO HS [facility] Last Admin: 02/18/17 21:42 Dose: 40 mg - Labs Labs: 02/19/17 06:26 02/19/17 06:26 PT 13.1 SECONDS (9.7-12.2) H 02/11/17 07:14 INR 1.2 02/11/17 07:14 APTT 65 SECONDS (21-34) H 02/12/17 05:14 - Additional Findings Additional findings: - Constitutional Appears: Non-toxic, No Acute Distress, Chronically Ill - Head Exam Head Exam: ATRAUMATIC, NORMOCEPHALIC - Eye Exam Eye Exam: EOMI, Normal appearance. absent: Scleral icterus - ENT Exam ENT Exam: Mucous Membranes Moist - Neck Exam Neck Exam: Normal Inspection Additional comments: - Respiratory Exam Respiratory Exam: Clear to Ausculation Bilateral. absent: Rales, Rhonchi, Wheezes, Respiratory Distress - Cardiovascular Exam Cardiovascular Exam: REGULAR RHYTHM, +S1, +S2 - GI/Abdominal Exam GI & Abdominal Exam: Soft, Normal Bowel Sounds - Extremities Exam Extremities Exam: absent: Calf Tenderness, Pedal Edema - Dressing C/D/I - Neurological Exam Neurological Exam: Alert, Awake, Oriented x3 - Psychiatric Exam Psychiatric exam: Normal Affect - Skin Skin Exam: Dry, Normal Color Assessment and Plan - Assessment and Plan (Free Text) Plan: NSTEMI Occurred on 02/01: [employer] for resp distress EKG: NSTEMI, positive troponins Cardiology Dr. 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 Jaimes notes: "stent placement does not necessarily preclude MRI/MRA" BB, ASA, Plavix, Statin, lasix - Hold LIZZETH/ARB due to PORTIA Continue eliquis 2.5g PO BID Acute CVA History of three prior CVAs Worsening left side weakness/AMS prior to heart catheterization Dr. Arevalo, neuro agriculture consultant: help appreciated Likely 2/2 to thromboembolic disease vs small-vessel disease - [place] (02/09/17): EF 60-65%; Grade IV/V aortic atheroma in arch, possible source of multifocal CVA; - f/u MRI/MRA Continue Eliquis 2.5mg PO BID PT: needs max assist to stand up, needs constant cures, continue PT; - D/C recommendation: CATHY Acute kidney injury Improved over weekend by d/c diuretics PORTIA acutely worsened s/p coronary angiography with PCI and diuresis Cr: 2.3 today, 1.3 on admission - GFR ~[address] Green - f/u reccs Cardio Consult: Dr. Jaimes, reccs appreciated - Hold Lasix - Start gentle hydration, NS@50cc/hr - Continue monitoring renal function in hospital Hypertension BP elevated - in light of CVA will defer to neuro reccs Metoprolol 50mg PO BID, as above Hydralazine 50mg PO Q8 Osteomyelitis Afebrile WBC 12.9 today, Right great toe osteomyelitis on presentation - s/p right metatarsal head resection POD #2 Podiatry consult, Dr. Tariq: - non-weightbearing, offloading boots b/l Dr. Morrow, ID agriculture consultant: - Ceftriaxone 2gm IV Q24H Type two Diabetes mellitus Poorly controlled A1C: 7.9 (01/30/17), but BG > 500 recently Cannot restart home PO meds due to Creatinine Lantus 40u HS HISS Obstructive Sleep apnea Tolerated CPAP overnight - will recommend outpatient polysomnography for confirmation Disposition: Patient for transfer to [facility] when authorization/bed available Orlando Shah PGY-2 All medical management per Dr. Green.
[2017-02-19] MEDS: Potassium Chloride 20 mEq/15 ml LIQ UD PO SCH (10:53)
--- NOTE | 2017-02-19 11:01 | CP.PCM.PN ---
Subjective - Date & Time of Evaluation Date of Evaluation: 02/19/17 Time of Evaluation: 09:30 - Subjective Subjective: Podiatry Progress Note - Dr. Tate 71 y/o male patient seen at bedside POD# 5 s/p right 1st metatarsal head resection. Patient's was by bedside at the time of visit. Per nursing, patient refuses to apply offloading boots. Patient denies any pain to his right foot currently. Patient not wearing offloading boots at time of visit. Patient denies N/V/F/D/C/SOB/calf pain. Patient denies of any other pedal complaints at this time. Objective - Vital Signs/Intake and Output Vital Signs (last 24 hours): Temp Pulse Resp BP Pulse Ox 97.3 F L 70 18 150/65 98 02/19/17 07:30 02/19/17 07:30 02/19/17 07:30 02/19/17 07:30 02/19/17 07:30 Intake and Output: 02/19/17 02/19/17 06:59 18:59 Intake Total 1270 Output Total 600 Balance 670 - Medications Medications: Current Medications Acetaminophen (Tylenol 325mg Tab) 650 mg PO Q8 PRN PRN Reason: Pain Last Admin: 02/19/17 02:27 Dose: 650 mg Apixaban (Eliquis) 2.5 mg PO BID [facility] Last Admin: 02/19/17 10:51 Dose: 2.5 mg Clopidogrel Bisulfate (Plavix) 75 mg PO DAILY [facility] Last Admin: 02/19/17 10:51 Dose: 75 mg Famotidine (Pepcid) 20 mg PO DAILY [facility] Last Admin: 02/19/17 10:51 Dose: 20 mg Hydralazine HCl (Apresoline) 25 mg PO TID [facility] Last Admin: 02/19/17 10:51 Dose: 25 mg Sodium Chloride (Sodium Chloride 0.9%) 1,000 mls @ 50 mls/hr IV .Q20H [facility] Last Admin: 02/19/17 02:31 Dose: Not Given Ceftriaxone Sodium 2 gm/ (Sodium Chloride) 100 mls @ 100 mls/hr IVPB Q24H [facility] Last Admin: 02/18/17 18:44 Dose: 100 mls/hr Insulin Aspart (Novolog) 0 unit SC ACHS [facility] PRN Reason: Protocol Last Admin: 02/19/17 08:07 Dose: Not Given Insulin Aspart (Novolog) 14 unit SC AC [facility] Last Admin: 02/19/17 08:30 Dose: 14 unit Insulin Glargine (Lantus) 40 unit SC [facility] Last Admin: 02/18/17 21:42 Dose: 40 units Lactulose (Enulose) 20 gm PO BID [facility] Last Admin: 02/19/17 10:52 Dose: 20 gm Metoprolol Tartrate (Lopressor) 50 mg PO BID [facility] Last Admin: 02/19/17 10:53 Dose: 50 mg Potassium Chloride (Potassium Chloride Oral Soln) 20 meq PO DAILY [facility] Last Admin: 02/19/17 10:53 Dose: 20 meq Rosuvastatin Calcium (Crestor) 40 mg PO HS [facility] Last Admin: 02/18/17 21:42 Dose: 40 mg - Labs Labs: 02/19/17 06:26 02/19/17 06:26 PT 13.1 SECONDS (9.7-12.2) H 02/11/17 07:14 INR 1.2 02/11/17 07:14 APTT 65 SECONDS (21-34) H 02/12/17 05:14 - Constitutional Appears: Well, Non-toxic, No Acute Distress - Head Exam Head Exam: ATRAUMATIC - Extremities Exam Additional comments: Right lower extremity focused physical exam: Dressing to right foot appears clean/dry/intact with no strikethrough noted VASC: DP and PT pulses are palpable 1/4. Mild non-pitting edema noted to right foot. Temperature gradient warm to warm. CFT <3 seconds to lesser digits. DERM: Wound dehiscence noted to distal aspect of surgical site of right hallux dorsally, measuring 3cm x 1cm with granular base. No drainage is noted. No purulent discharge noted. No mal-odor noted. No PTB. No erythema noted. No clinical sign of acute infection is noted. NEURO: Protective sensation grossly diminished. ORTHO: Mild tenderness on palpation of the surgical site - Neurological Exam Neurological Exam: Alert, Awake, Oriented x3 - Psychiatric Exam Psychiatric exam: Normal Affect, Normal Mood - Skin Skin Exam: Normal Color Assessment and Plan - Assessment and Plan (Free Text) Assessment: 71 yo male patient POD#5 s/p right foot 1st met head resection 2/2 diabetic neuropathy Plan: Patient seen and evaluated at bedside Discussed with attending, Dr. Tate Labs and vitals reviewed = WBC 12.5, afebrile Surgical site was cleansed with peroxide, and dressed with betadine wet to dry dressing - Continue betadine wet to dry dressings Q12H C/w offloading boots bilaterally. Strict non-weightbearing to right leg. C/w IV abx per ID - Ceftriaxone Recommending transfer to [facility] facility, [facility]. Podiatry will continue to follow patient while inhouse.
--- NOTE | 2017-02-19 11:01 | CP.PCM.PN ---
<AI ARMAS - Last Filed: 02/19/17 16:37> Subjective - Date & Time of Evaluation Date of Evaluation: 02/19/17 Time of Evaluation: 07:35 - Subjective Subjective: Ai Armas DO PGY1 - Cardiology Progress Note for Dr. Jaimes Patient seen and examined at bedside. No events overnight. Patient was seen sitting up in a chair, appears comfortable. Denies CP, SOB, or palpitations. Denies any pain in his foot. Would like to walk around, pending clearance from podiatry. Objective - Vital Signs/Intake and Output Vital Signs (last 24 hours): Temp Pulse Resp BP Pulse Ox 97.3 F L 70 18 150/65 98 02/19/17 07:30 02/19/17 07:30 02/19/17 07:30 02/19/17 07:30 02/19/17 07:30 Intake and Output: 02/19/17 02/19/17 06:59 18:59 Intake Total 1270 Output Total 600 Balance 670 - Medications Medications: Current Medications Acetaminophen (Tylenol 325mg Tab) 650 mg PO Q8 PRN PRN Reason: Pain Last Admin: 02/19/17 02:27 Dose: 650 mg Apixaban (Eliquis) 2.5 mg PO BID REPLACED BY [facility] Last Admin: 02/18/17 18:35 Dose: 2.5 mg Clopidogrel Bisulfate (Plavix) 75 mg PO DAILY REPLACED BY [facility] Last Admin: 02/18/17 10:43 Dose: 75 mg Famotidine (Pepcid) 20 mg PO DAILY REPLACED BY [facility] Last Admin: 02/18/17 10:42 Dose: 20 mg Hydralazine HCl (Apresoline) 25 mg PO TID REPLACED BY [facility] Last Admin: 02/18/17 18:35 Dose: 25 mg Sodium Chloride (Sodium Chloride 0.9%) 1,000 mls @ 50 mls/hr IV .Q20H REPLACED BY [facility] Last Admin: 02/19/17 02:31 Dose: Not Given Ceftriaxone Sodium 2 gm/ (Sodium Chloride) 100 mls @ 100 mls/hr IVPB Q24H REPLACED BY [facility] Last Admin: 02/18/17 18:44 Dose: 100 mls/hr Insulin Aspart (Novolog) 0 unit SC ACHS [facility] PRN Reason: Protocol Last Admin: 02/19/17 08:07 Dose: Not Given Insulin Aspart (Novolog) 14 unit SC AC REPLACED BY [facility] Last Admin: 02/19/17 08:30 Dose: 14 unit Insulin Glargine (Lantus) 40 unit SC [facility] Last Admin: 02/18/17 21:42 Dose: 40 units Lactulose (Enulose) 20 gm PO BID REPLACED BY [facility] Last Admin: 02/18/17 18:00 Dose: Not Given Metoprolol Tartrate (Lopressor) 50 mg PO BID REPLACED BY [facility] Last Admin: 02/18/17 18:36 Dose: 50 mg Potassium Chloride (Potassium Chloride Oral Soln) 20 meq PO DAILY REPLACED BY [facility] Last Admin: 02/18/17 10:43 Dose: 20 meq Rosuvastatin Calcium (Crestor) 40 mg PO HS REPLACED BY [facility] Last Admin: 02/18/17 21:42 Dose: 40 mg - Labs Labs: 02/19/17 06:26 02/19/17 06:26 PT 13.1 SECONDS (9.7-12.2) H 02/11/17 07:14 INR 1.2 02/11/17 07:14 APTT 65 SECONDS (21-34) H 02/12/17 05:14 - Constitutional Appears: Non-toxic, No Acute Distress, Chronically Ill - Head Exam Head Exam: ATRAUMATIC, NORMOCEPHALIC - Eye Exam Eye Exam: EOMI, Normal appearance - ENT Exam ENT Exam: Mucous Membranes Moist - Neck Exam Neck Exam: Normal Inspection - Respiratory Exam Respiratory Exam: Clear to Ausculation Bilateral, NORMAL BREATHING PATTERN - Cardiovascular Exam Cardiovascular Exam: RRR, +S1, +S2. absent: JVD - GI/Abdominal Exam GI & Abdominal Exam: Soft. absent: Tenderness - Extremities Exam Extremities Exam: absent: Calf Tenderness, Pedal Edema Additional comments: Right hallux dressing in place, some red tinged drainage noted - Neurological Exam Neurological Exam: Alert, Awake, Oriented x3 Neuro motor strength exam: Left Upper Extremity: 5, Right Upper Extremity: 5, Left Lower Extremity: 4, Right Lower Extremity: 4 - Psychiatric Exam Psychiatric exam: Normal Affect, Normal Mood - Skin Skin Exam: Dry, Intact Assessment and Plan (1) NSTEMI (non-ST elevated myocardial infarction) Assessment & Plan: Patient is s/p PCI with JOVANNY placement in mLAD; currently asymptomatic - Patient had high grade stenosis of the LAD which was successfully revascularized with a JOVANNY, and high grade obtuse marginal disease which will be revascularized at a future intervention [facility] showed aortic atheroma, possible source of multifocal CVA; MRI/MRA as part of neuro workup canceled by neurology Continue BB, ASA, Plavix, Statin, lasix - Cannot give ACEi/ARB at this time due to PORTIA Continue eliquis 2.5g PO BID Status: Acute (2) Acute CVA (cerebrovascular accident) Assessment & Plan: Patient mental status and neurological neuro exam remains at baseline, with no acute changes post cath 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 Arevalo), appreciate recs Status: Acute (3) Cardiogenic pulmonary edema Assessment & Plan: Orthopnea and signs of congestion improving; saturating well on O2 b Last BNP was 3590, decreased from >6000 2 days prior; recheck BNP in AM prior to potential discharge Diuretics held over the weekend due to PORTIA; Symptoms of congestion appear resolved; No worsening in respiratory status, despite gentle hydration without diuresis Continue to monitor respiratory status Status: Acute (4) CAD (coronary artery disease) Assessment & Plan: s/p PCI as above Status: Acute (5) HTN (hypertension) Assessment & Plan: BP elevated, but at goal; patient had CVA, no bleed noted on CT head BP goal SBP<185 and DBP<105 per neurology Continue metoprolol 50mg PO BID, as above Continue Hydralazine 50mg PO Q8 Continue to monitor BP and titrate medications as needed Status: Chronic (6) Dyslipidemia Assessment & Plan: Continue Statin; high dose for plaque stabilization Status: Chronic (7) Acute kidney injury Assessment & Plan: PORTIA acutely worsened s/p coronary angiography with PCI and diuresis, now improving (Cr 1.9->2.1->2.5->2.6->3.3->2.8->2.2->2.1) - Discontinue IVF; recheck renal function with AM labs Titrating medications and started CPAP to improve BP control to avoid hypertensive nephrosclerosis Continue to monitor Nephro on consult, appreciate recs Status: Acute (8) Osteomyelitis Assessment & Plan: Patient initially presented with R great toe osteomyelitis, now s/p amputation and revision amputation 02/14/17 Patient tolerated procedure well, reportedly well vascularized, bleeding normally intraoperatively, low likelyhood of PAD contributing to poor wound healing Podiatry following, appreciate recs Status: Acute (9) Diabetes mellitus Assessment & Plan: Glycemic control improving Endocrinology (Dr. Lane) on consult, appreciate recs Management per primary team and Dr. Lane Maintain euglycemia Status: Chronic (10) Sleep apnea Assessment & Plan: Patient has poor sleep, appears to become bradycardic and hypertensive overnight ; likely has LATRELL Tolerating CPAP well; continue nightly CPAP administration Recommend outpatient polysomnogram to confirm diagnosis Status: Acute <Donaldo Jaimes - Last Filed: 02/20/17 01:05> Objective - Vital Signs/Intake and Output Vital Signs (last 24 hours): Temp Pulse Resp BP Pulse Ox 97.7 F 63 20 183/81 H 96 02/19/17 23:02 02/19/17 23:34 02/19/17 23:02 02/19/17 15:15 02/19/17 23:02 Intake and Output: 02/19/17 02/20/17 18:59 06:59 Intake Total 400 Output Total 1 Balance 399 - Medications Medications: Current Medications Acetaminophen (Tylenol 325mg Tab) 650 mg PO Q8 PRN PRN Reason: Pain Last Admin: 02/19/17 02:27 Dose: 650 mg Apixaban (Eliquis) 2.5 mg PO BID REPLACED BY [facility] Last Admin: 02/19/17 17:51 Dose: 2.5 mg Clopidogrel Bisulfate (Plavix) 75 mg PO DAILY REPLACED BY [facility] Last Admin: 02/19/17 10:51 Dose: 75 mg Famotidine (Pepcid) 20 mg PO DAILY REPLACED BY [facility] Last Admin: 02/19/17 10:51 Dose: 20 mg Hydralazine HCl (Apresoline) 50 mg PO Q8 REPLACED BY [facility] Last Admin: 02/19/17 21:49 Dose: 50 mg Ceftriaxone Sodium 2 gm/ (Sodium Chloride) 100 mls @ 100 mls/hr IVPB Q24H REPLACED BY [facility] Last Admin: 02/19/17 19:00 Dose: 100 mls/hr Insulin Aspart (Novolog) 0 unit SC ACHS REPLACED BY [facility] PRN Reason: Protocol Last Admin: 02/19/17 21:46 Dose: Not Given Insulin Aspart (Novolog) 14 unit SC AC REPLACED BY [facility] Last Admin: 02/19/17 16:30 Dose: Not Given Insulin Glargine (Lantus) 40 unit SC HS REPLACED BY [facility] Last Admin: 02/19/17 22:07 Dose: 40 units Lactulose (Enulose) 20 gm PO BID REPLACED BY [facility] Last Admin: 02/19/17 17:50 Dose: 20 gm Metoprolol Tartrate (Lopressor) 50 mg PO BID REPLACED BY [facility] Last Admin: 02/19/17 17:51 Dose: 50 mg Oxycodone HCl (Oxycodone Immediate Release Tab) 5 mg PO Q6 PRN PRN Reason: Pain, severe (8-10) Last Admin: 02/19/17 16:34 Dose: 5 mg Potassium Chloride (Potassium Chloride Oral Soln) 20 meq PO DAILY REPLACED BY [facility] Last Admin: 02/19/17 10:53 Dose: 20 meq Rosuvastatin Calcium (Crestor) 40 mg PO HS REPLACED BY [facility] Last Admin: 02/19/17 21:49 Dose: 40 mg - Labs Labs: 02/19/17 06:26 02/19/17 06:26 PT 13.1 SECONDS (9.7-12.2) H 02/11/17 07:14 INR 1.2 02/11/17 07:14 APTT 65 SECONDS (21-34) H 02/12/17 05:14 Assessment and Plan (1) NSTEMI (non-ST elevated myocardial infarction) Status: Acute (2) HTN (hypertension) Status: Chronic (3) Dyslipidemia Status: Chronic (4) CAD (coronary artery disease) Status: Acute Attending/Attestation - Attestation I have personally seen and examined this patient.: Yes I have fully participated in the care of the patient.: Yes I have reviewed all pertinent clinical information, including history, physical exam and plan: Yes Notes (Text): 02/20/17 01:05 stable cr improving staged PCI in 2-3 weeks once renal fucntion stable cont dapt cont gdmt for cad
[2017-02-19 15:49] VITALS: RESP 20
[2017-02-19] MEDS ORDERED: oxyCODONE 5 mg Immediate Release Tab PO PRN (16:24)
[2017-02-19] MEDS: cefTRIAXone 2 GM in Sodium Chloride 0.9% 100 ML IVPB SCH (19:00)
--- NOTE | 2017-02-19 21:41 | PN ---
DATE: ENDOCRINOLOGY FOLLOWUP NOTE LOCATION: In room 653. This is a 71-year-old male with recent uncontrolled type 2 insulin-requiring diabetes who presented here with right toe gangrene and underwent a partial resection of the right hallux with debridement of the metatarsal area and is now being followed closely for metabolic management. His glycemic levels were initially fluctuating but not improved as noted and the glucose levels have ranged from 127 to 171 and 292 mg/dL. His latest chemistry showed a BUN of 36, sodium 136, potassium 4.3, chloride 101, CO2 27, glucose 161, and creatinine 2.1. So at this time, we will continue to modify basal and bolus insulin regimen to allow for dose equilibration and keep him on the NovoLog, given as 14 units subQ t.i.d. before meals as ordered. We will continue the Lantus given as 40 units subQ at bedtime daily as given. We will titrate incrementally as indicated to optimize metabolic control. We will follow and advise accordingly. Nayeli Lane MD
--- NOTE | 2017-02-19 22:03 | CP.PCM.PN ---
Subjective - Date & Time of Evaluation Date of Evaluation: 02/19/17 Objective - Vital Signs/Intake and Output Vital Signs (last 24 hours): Temp Pulse Resp BP Pulse Ox 98.2 F 66 20 183/81 H 98 02/19/17 15:15 02/19/17 15:15 02/19/17 15:15 02/19/17 15:15 02/19/17 15:15 - Medications Medications: Current Medications Acetaminophen (Tylenol 325mg Tab) 650 mg PO Q8 PRN PRN Reason: Pain Last Admin: 02/19/17 02:27 Dose: 650 mg Apixaban (Eliquis) 2.5 mg PO BID COUNT [facility] Last Admin: 02/19/17 17:51 Dose: 2.5 mg Clopidogrel Bisulfate (Plavix) 75 mg PO DAILY [facility] Last Admin: 02/19/17 10:51 Dose: 75 mg Famotidine (Pepcid) 20 mg PO DAILY [facility] Last Admin: 02/19/17 10:51 Dose: 20 mg Hydralazine HCl (Apresoline) 50 mg PO Q8 [facility] Last Admin: 02/19/17 21:49 Dose: 50 mg Ceftriaxone Sodium 2 gm/ (Sodium Chloride) 100 mls @ 100 mls/hr IVPB Q24H [facility] Last Admin: 02/19/17 19:00 Dose: 100 mls/hr Insulin Aspart (Novolog) 0 unit SC ACHS [facility] PRN Reason: Protocol Last Admin: 02/19/17 21:46 Dose: Not Given Insulin Aspart (Novolog) 14 unit SC AC [facility] Last Admin: 02/19/17 16:30 Dose: Not Given Insulin Glargine (Lantus) 40 unit SC HS [facility] Last Admin: 02/18/17 21:42 Dose: 40 units Lactulose (Enulose) 20 gm PO BID [facility] Last Admin: 02/19/17 17:50 Dose: 20 gm Metoprolol Tartrate (Lopressor) 50 mg PO BID [facility] Last Admin: 02/19/17 17:51 Dose: 50 mg Oxycodone HCl (Oxycodone Immediate Release Tab) 5 mg PO Q6 PRN PRN Reason: Pain, severe (8-10) Last Admin: 02/19/17 16:34 Dose: 5 mg Potassium Chloride (Potassium Chloride Oral Soln) 20 meq PO DAILY [facility] Last Admin: 02/19/17 10:53 Dose: 20 meq Rosuvastatin Calcium (Crestor) 40 mg PO HS [facility] Last Admin: 02/19/17 21:49 Dose: 40 mg - Labs Labs: 02/19/17 06:26 02/19/17 06:26 PT 13.1 SECONDS (9.7-12.2) H 02/11/17 07:14 INR 1.2 02/11/17 07:14 APTT 65 SECONDS (21-34) H 02/12/17 05:14
[2017-02-19] MEDS: (Lantus) Insulin Glargine, Recombinant SC SCH (22:07)
[2017-02-20 06:56] LABS: BASO # 0.1 K/uL (0.0-0.2); BASO % 0.6 % (0.0-2.0); EOS # 0.4 K/uL (0.0-0.7); EOS % 4.4 % (0.0-4.0); HEMATOCRIT 30.7 % (35.0-51.0); LYMPH # 2.1 K/uL (1.0-4.3); LYMPH % 20.6 % (20.0-40.0); MEAN CELL VOLUME 86.6 fL (80.0-94.0); MEAN CORPUSCULAR HGB CONC 33.4 g/dL (33.0-37.0); MEAN PLATELET VOLUME 9.2 fL (7.2-11.7); MONO # 0.9 K/uL (0.0-0.8); MONO % 8.8 % (0.0-10.0); NRBC % 0.1 % (0.0-2.0); RED CELL DISTRIBUTION WIDTH 14.7 % (11.5-14.5); WHITE BLOOD COUNT 10.1 K/uL (4.8-10.8)
[2017-02-20] MEDS: (Novolog) Insulin Aspart, Recombinant 100 u/ml 10 ml vial SC SCH ×6 (06:58→17:53)
--- NOTE | 2017-02-20 07:28 | CP.PCM.PN ---
Subjective - Date & Time of Evaluation Date of Evaluation: 02/20/17 Time of Evaluation: 07:25 - Subjective Subjective: Ms. Campo was seen and examined at the bedside. He remains alert, oriented in all spheres. He denies any headache, dizziness, lightheadedness, but claims of weakness in his lower extremities. He is not agitated or restless upon examination. He has bilateral upper extremities mitten for patient safety. He is for transfer to a subacute rehab today.There is no untoward events overnight. Objective - Vital Signs/Intake and Output Vital Signs (last 24 hours): Temp Pulse Resp BP Pulse Ox 98 F 73 20 158/79 H 18 L 02/20/17 05:59 02/20/17 05:59 02/20/17 05:59 02/20/17 05:59 02/20/17 05:59 Intake and Output: 02/20/17 02/20/17 06:59 18:59 Intake Total 500 Output Total 1 Balance 499 - Medications Medications: Current Medications Acetaminophen (Tylenol 325mg Tab) 650 mg PO Q8 PRN PRN Reason: Pain Last Admin: 02/19/17 02:27 Dose: 650 mg Apixaban (Eliquis) 2.5 mg PO BID [facility] Last Admin: 02/19/17 17:51 Dose: 2.5 mg Clopidogrel Bisulfate (Plavix) 75 mg PO DAILY [facility] Last Admin: 02/19/17 10:51 Dose: 75 mg Famotidine (Pepcid) 20 mg PO DAILY [facility] Last Admin: 02/19/17 10:51 Dose: 20 mg Hydralazine HCl (Apresoline) 50 mg PO Q8 [facility] Last Admin: 02/20/17 06:01 Dose: 50 mg Ceftriaxone Sodium 2 gm/ (Sodium Chloride) 100 mls @ 100 mls/hr IVPB Q24H [facility] Last Admin: 02/19/17 19:00 Dose: 100 mls/hr Insulin Aspart (Novolog) 0 unit SC ACHS [facility] PRN Reason: Protocol Last Admin: 02/20/17 06:58 Dose: Not Given Insulin Aspart (Novolog) 14 unit SC AC [facility] Last Admin: 02/19/17 16:30 Dose: Not Given Insulin Glargine (Lantus) 40 unit SC HS [facility] Last Admin: 02/19/17 22:07 Dose: 40 units Lactulose (Enulose) 20 gm PO BID [facility] Last Admin: 02/19/17 17:50 Dose: 20 gm Metoprolol Tartrate (Lopressor) 50 mg PO BID [facility] Last Admin: 02/19/17 17:51 Dose: 50 mg Oxycodone HCl (Oxycodone Immediate Release Tab) 5 mg PO Q6 PRN PRN Reason: Pain, severe (8-10) Last Admin: 02/19/17 16:34 Dose: 5 mg Potassium Chloride (Potassium Chloride Oral Soln) 20 meq PO DAILY [facility] Last Admin: 02/19/17 10:53 Dose: 20 meq Rosuvastatin Calcium (Crestor) 40 mg PO HS [facility] Last Admin: 02/19/17 21:49 Dose: 40 mg - Labs Labs: 02/20/17 06:43 02/19/17 06:26 PT 13.1 SECONDS (9.7-12.2) H 02/11/17 07:14 INR 1.2 02/11/17 07:14 APTT 65 SECONDS (21-34) H 02/12/17 05:14 - Constitutional Appears: No Acute Distress - Head Exam Head Exam: ATRAUMATIC, NORMAL INSPECTION, NORMOCEPHALIC - Neurological Exam Neurological Exam: Alert, Awake, CN II-XII Intact, Oriented x3 Neuro motor strength exam: Left Upper Extremity: 5, Right Upper Extremity: 5, Left Lower Extremity: 5, Right Lower Extremity: 5 Additional comments: Neurological unchanged from previous examination. He is able to follow all commands. Assessment and Plan (1) Acute CVA (cerebrovascular accident) Assessment & Plan: Case discussed with Dr. Arevalo, continue all medical, physical, occupational, and speech therapies. He is for transfer to subacute rehab. today.There is no new recommendation from neurology. Status: Acute
[2017-02-20 07:41] LABS: BILIRUBIN,TOTAL 0.4 mg/dL (0.2-1.3)
[2017-02-20 07:42] LABS: ALB/GLOB RATIO 0.8 (1.0-2.1); TOTAL PROTEIN 7.3 g/dL (6.3-8.3)
[2017-02-20] MEDS: Potassium Chloride 20 mEq/15 ml LIQ UD PO SCH ×2 (10:34→10:37)
--- NOTE | 2017-02-20 10:43 | CP.PCM.PN ---
Subjective - Date & Time of Evaluation Date of Evaluation: 02/20/17 Time of Evaluation: 09:32 - Subjective Subjective: Podiatry Progress Note - Dr. Tate 71 y/o male patient seen at bedside POD# 6 s/p right 1st metatarsal head resection. AAo x 3. Patient's was by bedside at the time of visit. Patient had offloading boots bilaterally at the time of visit. Patient denies any pain to his right foot currently. Patient not wearing offloading boots at time of visit. Patient denies N/V/F/D/C/SOB/calf pain. Patient denies of any other pedal complaints at this time. Objective - Vital Signs/Intake and Output Vital Signs (last 24 hours): Temp Pulse Resp BP Pulse Ox 98 F 73 20 158/79 H 18 L 02/20/17 05:59 02/20/17 05:59 02/20/17 05:59 02/20/17 05:59 02/20/17 05:59 Intake and Output: 02/20/17 02/20/17 06:59 18:59 Intake Total 500 Output Total 1 Balance 499 - Medications Medications: Current Medications Acetaminophen (Tylenol 325mg Tab) 650 mg PO Q8 PRN PRN Reason: Pain Last Admin: 02/19/17 02:27 Dose: 650 mg Apixaban (Eliquis) 2.5 mg PO BID [facility] Last Admin: 02/19/17 17:51 Dose: 2.5 mg Clopidogrel Bisulfate (Plavix) 75 mg PO DAILY [facility] Last Admin: 02/19/17 10:51 Dose: 75 mg Famotidine (Pepcid) 20 mg PO DAILY [facility] Last Admin: 02/19/17 10:51 Dose: 20 mg Hydralazine HCl (Apresoline) 50 mg PO Q8 [facility] Last Admin: 02/20/17 06:01 Dose: 50 mg Ceftriaxone Sodium 2 gm/ (Sodium Chloride) 100 mls @ 100 mls/hr IVPB Q24H [facility] Last Admin: 02/19/17 19:00 Dose: 100 mls/hr Insulin Aspart (Novolog) 0 unit SC ACHS [facility] PRN Reason: Protocol Last Admin: 02/20/17 06:58 Dose: Not Given Insulin Aspart (Novolog) 14 unit SC AC [facility] Last Admin: 02/20/17 07:32 Dose: 14 unit Insulin Glargine (Lantus) 40 unit SC [facility] Last Admin: 02/19/17 22:07 Dose: 40 units Lactulose (Enulose) 20 gm PO BID [facility] Last Admin: 02/19/17 17:50 Dose: 20 gm Metoprolol Tartrate (Lopressor) 50 mg PO BID [facility] Last Admin: 02/19/17 17:51 Dose: 50 mg Oxycodone HCl (Oxycodone Immediate Release Tab) 5 mg PO Q6 PRN PRN Reason: Pain, severe (8-10) Last Admin: 02/19/17 16:34 Dose: 5 mg Potassium Chloride (Potassium Chloride Oral Soln) 20 meq PO DAILY [facility] Last Admin: 02/19/17 10:53 Dose: 20 meq Rosuvastatin Calcium (Crestor) 40 mg PO [facility] Last Admin: 02/19/17 21:49 Dose: 40 mg - Labs Labs: 02/20/17 06:43 02/20/17 06:43 PT 13.1 SECONDS (9.7-12.2) H 02/11/17 07:14 INR 1.2 02/11/17 07:14 APTT 65 SECONDS (21-34) H 02/12/17 05:14 - Constitutional Appears: Well, Non-toxic, No Acute Distress - Head Exam Head Exam: ATRAUMATIC - Extremities Exam Additional comments: Right lower extremity focused physical exam: Dressing to right foot appears clean/dry/intact with no strikethrough noted DERM: Wound dehiscence noted to distal aspect of surgical site of right hallux dorsally, measuring 3 cm x 1 cm with granular base. No drainage is noted. No purulent discharge noted. No mal-odor noted. No PTB. No erythema noted. No clinical sign of acute infection is noted. VASC: DP and PT pulses are palpable 1/4. Mild non-pitting edema noted to right foot. Temperature gradient warm to warm. CFT <3 seconds to lesser digits. NEURO: Protective sensation grossly diminished. ORTHO: Mild tenderness on palpation of the surgical site - Neurological Exam Neurological Exam: Alert, Awake, Oriented x3 - Psychiatric Exam Psychiatric exam: Normal Affect, Normal Mood - Skin Skin Exam: Normal Color, Warm Assessment and Plan - Assessment and Plan (Free Text) Assessment: 71 yo male patient POD#6 s/p right foot 1st met head resection 2/2 diabetic neuropathy Plan: Patient seen and evaluated at bedside Discussed with attending, Dr. Tate Labs and vitals reviewed = WBC 10.1, afebrile Surgical site was cleansed with peroxide, and dressed with betadine wet to dry dressing - Continue betadine wet to dry dressings Q12H C/w offloading boots bilaterally. Strict non-weightbearing to right leg. C/w IV abx per ID - Ceftriaxone Patient is stable from podiatry standpoint Recommending transfer to [facility] facility, [facility]. Podiatry will continue to follow patient while inhouse.
--- NOTE | 2017-02-20 10:45 | CP.PCM.PN ---
Subjective - Date & Time of Evaluation Date of Evaluation: 02/20/17 Time of Evaluation: 10:40 - Subjective Subjective: PGY-[address] Green's service: Pt seen and examined at bedside. Nursing reports no acute events overnight. Patient found resting comfortably in bed. Patient was for discharge to [facility] yesterday, but insurance authorization held up transfer. Pt will be transferred today. Objective - Vital Signs/Intake and Output Vital Signs (last 24 hours): Temp Pulse Resp BP Pulse Ox 98 F 73 20 158/79 H 18 L 02/20/17 05:59 02/20/17 05:59 02/20/17 05:59 02/20/17 05:59 02/20/17 05:59 Intake and Output: 02/20/17 02/20/17 06:59 18:59 Intake Total 500 Output Total 1 Balance 499 - Medications Medications: Current Medications Acetaminophen (Tylenol 325mg Tab) 650 mg PO Q8 PRN PRN Reason: Pain Last Admin: 02/19/17 02:27 Dose: 650 mg Apixaban (Eliquis) 2.5 mg PO BID [facility] Last Admin: 02/20/17 10:33 Dose: 2.5 mg Clopidogrel Bisulfate (Plavix) 75 mg PO DAILY [facility] Last Admin: 02/20/17 10:33 Dose: 75 mg Famotidine (Pepcid) 20 mg PO DAILY [facility] Last Admin: 02/20/17 10:33 Dose: 20 mg Hydralazine HCl (Apresoline) 50 mg PO Q8 [facility] Last Admin: 02/20/17 06:01 Dose: 50 mg Ceftriaxone Sodium 2 gm/ (Sodium Chloride) 100 mls @ 100 mls/hr IVPB Q24H [facility] Last Admin: 02/19/17 19:00 Dose: 100 mls/hr Insulin Aspart (Novolog) 0 unit SC ACHS [facility] PRN Reason: Protocol Last Admin: 02/20/17 06:58 Dose: Not Given Insulin Aspart (Novolog) 14 unit SC AC [facility] Last Admin: 02/20/17 07:32 Dose: 14 unit Insulin Glargine (Lantus) 40 unit SC HS [facility] Last Admin: 02/19/17 22:07 Dose: 40 units Lactulose (Enulose) 20 gm PO BID [facility] Last Admin: 02/20/17 10:33 Dose: Not Given Metoprolol Tartrate (Lopressor) 50 mg PO BID [facility] Last Admin: 02/20/17 10:33 Dose: 50 mg Oxycodone HCl (Oxycodone Immediate Release Tab) 5 mg PO Q6 PRN PRN Reason: Pain, severe (8-10) Last Admin: 02/19/17 16:34 Dose: 5 mg Potassium Chloride (Potassium Chloride Oral Soln) 20 meq PO DAILY [facility] Last Admin: 02/20/17 10:37 Dose: Not Given Rosuvastatin Calcium (Crestor) 40 mg PO HS [facility] Last Admin: 02/19/17 21:49 Dose: 40 mg - Labs Labs: 02/20/17 06:43 02/20/17 06:43 PT 13.1 SECONDS (9.7-12.2) H 02/11/17 07:14 INR 1.2 02/11/17 07:14 APTT 65 SECONDS (21-34) H 02/12/17 05:14 - Additional Findings Additional findings: - Constitutional Appears: Non-toxic, No Acute Distress, Chronically Ill - Head Exam Head Exam: ATRAUMATIC, NORMOCEPHALIC - Eye Exam Eye Exam: EOMI, Normal appearance. absent: Scleral icterus - ENT Exam ENT Exam: Mucous Membranes Moist - Neck Exam Neck Exam: Normal Inspection Additional comments: - Respiratory Exam Respiratory Exam: Clear to Ausculation Bilateral. absent: Rales, Rhonchi, Wheezes, Respiratory Distress - Cardiovascular Exam Cardiovascular Exam: REGULAR RHYTHM, +S1, +S2 - GI/Abdominal Exam GI & Abdominal Exam: Soft, Normal Bowel Sounds - Extremities Exam Extremities Exam: absent: Calf Tenderness, Pedal Edema - Dressing C/D/I - Neurological Exam Neurological Exam: Alert, Awake, Oriented x3 - Psychiatric Exam Psychiatric exam: Normal Affect - Skin Skin Exam: Dry, Normal Color Assessment and Plan - Assessment and Plan (Free Text) Plan: NSTEMI Occurred on 02/01: [employer] for resp distress EKG: NSTEMI, positive troponins Cardiology Dr. 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 Jaimes notes: "stent placement does not necessarily preclude MRI/MRA" BB, ASA, Plavix, Statin, lasix - Hold LIZZETH/ARB due to PORTIA Continue eliquis 2.5g PO BID Acute CVA History of three prior CVAs Worsening left side weakness/AMS prior to heart catheterization Dr. Arevalo, neuro data power consultant: help appreciated Likely 2/2 to thromboembolic disease vs small-vessel disease - CAROLINA (02/09/17): EF 60-65%; Grade IV/V aortic atheroma in arch, possible source of multifocal CVA; Continue Eliquis 2.5mg PO BID PT: needs max assist to stand up, needs constant cures, continue PT; - D/C recommendation: CATHY Acute kidney injury Improving PORTIA acutely worsened s/p coronary angiography with PCI and diuresis Cr: 1.8 today, 1.3 on admission - GFR ~[address] Green Cardio Consult: Dr. Jaimes, reccs appreciated - Hold Lasix - Start gentle hydration, NS@50cc/hr - Continue monitoring renal function in hospital Hypertension BP elevated Metoprolol 50mg PO BID, as above Hydralazine 50mg PO Q8 Osteomyelitis Afebrile WBC 12.9 today, Right great toe osteomyelitis on presentation - s/p right metatarsal head resection POD #2 Podiatry consult, Dr. Tariq: - non-weightbearing, offloading boots b/l Dr. Morrow, ID data power consultant: - Ceftriaxone 2gm IV Q24H Type two Diabetes mellitus Poorly controlled A1C: 7.9 (01/30/17), but BG > 500 recently Cannot restart home PO meds due to Creatinine Lantus 40u HS HISS Obstructive Sleep apnea Tolerated CPAP overnight - will recommend outpatient polysomnography for confirmation Disposition: Patient for transfer to [facility] when authorization/bed available Orlando Shah PGY-2 All medical management per Dr. Green.
--- NOTE | 2017-02-20 16:05 | CP.PCM.PN ---
Subjective - Date & Time of Evaluation Date of Evaluation: 02/20/17 Time of Evaluation: 12:10 - Subjective Subjective: Ai Williamson DO PGY1 - Cardiology Progress Note for Dr. Jaimes Patient seen and examined at bedside. No events overnight. Patient was seen sitting up in bed, denies CP, SOB, palpitations. Patient is very anxious to leave the hospital, and wants to go home. Objective - Vital Signs/Intake and Output Vital Signs (last 24 hours): Temp Pulse Resp BP Pulse Ox 98 F 73 20 158/79 H 18 L 02/20/17 05:59 02/20/17 05:59 02/20/17 05:59 02/20/17 05:59 02/20/17 05:59 Intake and Output: 02/20/17 02/20/17 06:59 18:59 Intake Total 500 Output Total 1 Balance 499 - Medications Medications: Current Medications Acetaminophen (Tylenol 325mg Tab) 650 mg PO Q8 PRN PRN Reason: Pain Last Admin: 02/19/17 02:27 Dose: 650 mg Apixaban (Eliquis) 2.5 mg PO BID [facility] Last Admin: 02/20/17 10:33 Dose: 2.5 mg Clopidogrel Bisulfate (Plavix) 75 mg PO DAILY [facility] Last Admin: 02/20/17 10:33 Dose: 75 mg Famotidine (Pepcid) 20 mg PO DAILY [facility] Last Admin: 02/20/17 10:33 Dose: 20 mg Hydralazine HCl (Apresoline) 50 mg PO Q8 [facility] Last Admin: 02/20/17 13:24 Dose: 50 mg Ceftriaxone Sodium 2 gm/ (Sodium Chloride) 100 mls @ 100 mls/hr IVPB Q24H [facility] Last Admin: 02/19/17 19:00 Dose: 100 mls/hr Insulin Aspart (Novolog) 0 unit SC ACHS [facility] PRN Reason: Protocol Last Admin: 02/20/17 11:53 Dose: Not Given Insulin Aspart (Novolog) 14 unit SC AC [facility] Last Admin: 02/20/17 11:56 Dose: 14 unit Insulin Glargine (Lantus) 40 unit SC HS [facility] Last Admin: 02/19/17 22:07 Dose: 40 units Lactulose (Enulose) 20 gm PO BID [facility] Last Admin: 02/20/17 10:33 Dose: Not Given Metoprolol Tartrate (Lopressor) 50 mg PO BID [facility] Last Admin: 02/20/17 10:33 Dose: 50 mg Oxycodone HCl (Oxycodone Immediate Release Tab) 5 mg PO Q6 PRN PRN Reason: Pain, severe (8-10) Last Admin: 02/19/17 16:34 Dose: 5 mg Potassium Chloride (Potassium Chloride Oral Soln) 20 meq PO DAILY [facility] Last Admin: 02/20/17 10:37 Dose: Not Given Rosuvastatin Calcium (Crestor) 40 mg PO HS [facility] Last Admin: 02/19/17 21:49 Dose: 40 mg - Labs Labs: 02/20/17 06:43 02/20/17 06:43 PT 13.1 SECONDS (9.7-12.2) H 02/11/17 07:14 INR 1.2 02/11/17 07:14 APTT 65 SECONDS (21-34) H 02/12/17 05:14 - Constitutional Appears: Non-toxic, No Acute Distress - Head Exam Head Exam: ATRAUMATIC, NORMOCEPHALIC - Eye Exam Eye Exam: EOMI, Normal appearance - ENT Exam ENT Exam: Mucous Membranes Moist - Neck Exam Neck Exam: Normal Inspection - Respiratory Exam Respiratory Exam: Clear to Ausculation Bilateral, NORMAL BREATHING PATTERN - Cardiovascular Exam Cardiovascular Exam: RRR, +S1, +S2 - GI/Abdominal Exam GI & Abdominal Exam: Soft. absent: Tenderness - Extremities Exam Extremities Exam: absent: Calf Tenderness, Pedal Edema Additional comments: Dressing on right foot, dark dry drainage noted - Neurological Exam Neurological Exam: Alert, Awake, Oriented x3 - Psychiatric Exam Psychiatric exam: Normal Affect, Normal Mood - Skin Skin Exam: Dry, Intact Assessment and Plan (1) NSTEMI (non-ST elevated myocardial infarction) Assessment & Plan: Patient is s/p PCI with JOVANNY placement in mLAD; currently asymptomatic - Patient had high grade stenosis of the LAD which was successfully revascularized with a JOVANNY, and high grade obtuse marginal disease which will be revascularized at a future intervention CAROLINA showed aortic atheroma, possible source of multifocal CVA; MRI/MRA as part of neuro workup canceled Continue BB, ASA, Plavix, Statin, lasix - Cannot give ACEi/ARB at this time due to PORTIA Continue eliquis 2.5g PO BID Status: Acute (2) Acute CVA (cerebrovascular accident) Assessment & Plan: Patient mental status and neurological neuro exam remains at baseline, with no acute changes post cath 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 Arevalo), appreciate recs Status: Acute (3) Cardiogenic pulmonary edema Assessment & Plan: Orthopnea and signs of congestion improving; saturating well on O2 by NC BNP trending down, though remains somewhat elevated as his baseline Currently off diuretics (d/c'd because of worsening PORTIA), no signs/symptoms of congestion Continue to monitor respiratory status Status: Acute (4) CAD (coronary artery disease) Assessment & Plan: s/p PCI as above Status: Acute (5) HTN (hypertension) Assessment & Plan: BP elevated, but at goal; patient had CVA, no bleed noted on CT head BP goal SBP<185 and DBP<105 per neurology Continue metoprolol 50mg PO BID, as above Continue Hydralazine 50mg PO Q8 Continue to monitor BP and titrate medications as needed Status: Chronic (6) Dyslipidemia Assessment & Plan: Continue Statin; high dose for plaque stabilization Status: Chronic (7) Acute kidney injury Assessment & Plan: PORTIA acutely worsened s/p coronary angiography with PCI and diuresis, now improving (Cr 1.9->2.1->2.5->2.6->3.3->2.8->2.2->2.1->1.8) Titrating medications and started CPAP to improve BP control to avoid hypertensive nephrosclerosis Continue to monitor Nephro on consult, appreciate recs Status: Acute (8) Osteomyelitis Assessment & Plan: Patient initially presented with R great toe osteomyelitis, now s/p amputation and revision amputation 02/14/17 Patient tolerated procedure well, reportedly well vascularized, bleeding normally intraoperatively, low likelyhood of PAD contributing to poor wound healing Podiatry following, appreciate recs Status: Acute (9) Diabetes mellitus Assessment & Plan: Glycemic control improving Endocrinology (Dr. Lane) on consult, appreciate recs Management per primary team and Dr. Cam Maintain euglycemia Status: Chronic (10) Sleep apnea Assessment & Plan: Patient has poor sleep, appears to become bradycardic and hypertensive overnight ; likely has LATRELL Tolerating CPAP well; continue nightly CPAP administration Recommend outpatient polysomnogram to confirm diagnosis Status: Acute - Assessment and Plan (Free Text) Assessment: Patient has mild decompensated heart failure, though asymptomatic, in the setting of an PORTIA (improving) will require close monitoring with daily weight, and bloodwork in 48hrs to monitor renal function and restart diuretics and ACEi when PORTIA resolves. This can be done at the [facility] where patient is being discharged to for rehabilitation of deconditioning and weakness s/p R hallux amputation, NSTEMI s/p PCI with JOVANNY implantation, and CVA. Appointment will be made within the next week for close monitoring of CHF and PORTIA, and to plan for management of known obtuse marginal disease, meanwhile, continue GDMT
[2017-02-20 17:00] VITALS: BP 162/81; PULSE 63; TEMP 98.2; O2SAT 98
--- NOTE | 2017-02-20 20:10 | PN ---
ENDO FOLLOWUP NOTE LOCATION: Room 653. SUBJECTIVE: This is a 71-year-old male with recent uncontrolled type 2 insulin requiring diabetes, now being followed closely for metabolic management. He is also undergoing IV antibiotic management for right lower extremity cellulitis with a recent debridement on partial resection of the right hallux as noted. His glycemic levels are fluctuating but improved, and the latest glucose levels have ranged from 188 to 194 and 210 mg/dL. His latest chemistry showed a BUN of 33, sodium 136, potassium 4.0, chloride 102, CO2 of 24, glucose 160, and creatinine 1.8. So at this time, we will continue the same basal and bolus insulin regimen to allow for dose calibration and keeping on the Lantus given at 40 units subcu at bedtime daily as given. We will continue the Novolog given at 14 units subcu t.i.d. before meals as ordered. We will titrate incrementally as indicated to optimize metabolic control. We will obtain serial chemistries and supplement accordingly as needed. We will follow with you. Nayeli Lane MD
--- NOTE | 2017-02-26 13:23 | CARD ---
APPROVED REPORT EKG Measurement Heart [id number] <Conclusion> Sinus rhythm with 1st degree AV block Septal infarct, age undetermined Abnormal ECG
== END 2017-02-20 18:11 | DRG 616 ==
LOC: C.ER 06:41 → C.9E 09:05 → C.3T 17:34 → C.9I 01-31 19:23 → C.6T 02-09 06:21
PROVIDERS: ADMIT Internal Medicine; ATTEND Internal Medicine Nephrology
PROC: 0Y6P0Z1 Detachment at Right 1st Toe, High, Open Approach (ICD-10-PCS; principal; 2017-01-31 09:00)
PROC: 0Y6P0Z0 Detachment at Right 1st Toe, Complete, Open Approach (ICD-10-PCS; 2017-02-15)
DX: E11.628 Type 2 diabetes mellitus with other skin complications (principal); I21.4 Non-ST elevation (NSTEMI) myocardial infarction; N17.9 Acute kidney failure, unspecified; I70.268 Atherosclerosis of native arteries of extremities with gangrene, other extremity; M86.171 Other acute osteomyelitis, right ankle and foot; E11.52 Type 2 diabetes mellitus with diabetic peripheral angiopathy with gangrene; G81.94 Hemiplegia, unspecified affecting left nondominant side; I63.8 Other cerebral infarction; E11.69 Type 2 diabetes mellitus with other specified complication; E11.65 Type 2 diabetes mellitus with hyperglycemia; E11.40 Type 2 diabetes mellitus with diabetic neuropathy, unspecified; E83.51 Hypocalcemia; Z79.4 Long term (current) use of insulin; L03.031 Cellulitis of right toe; M19.90 Unspecified osteoarthritis, unspecified site; Z85.46 Personal history of malignant neoplasm of prostate; E11.621 Type 2 diabetes mellitus with foot ulcer; L97.519 Non-pressure chronic ulcer of other part of right foot with unspecified severity; E78.5 Hyperlipidemia, unspecified; I25.10 Atherosclerotic heart disease of native coronary artery without angina pectoris; K59.00 Constipation, unspecified; E11.22 Type 2 diabetes mellitus with diabetic chronic kidney disease; I12.9 Hypertensive chronic kidney disease with stage 1 through stage 4 chronic kidney disease, or unspecified chronic kidney disease; N18.9 Chronic kidney disease, unspecified; J44.9 Chronic obstructive pulmonary disease, unspecified; E86.0 Dehydration

== ENCOUNTER 2017-06-18 06:11 | Day surgery (SDC) | payer MEDICARE, BC ==
[2017-06-07 09:11] VITALS: BMI 34.0
[2017-06-18] MEDS ORDERED: Lidocaine 2% Jelly (Uro-Jet) ONE (10:08)
[2017-06-18] MEDS ORDERED: Propofol 10 mg/ml Inj (20 ML) ONE (10:14)
[2017-06-18] MEDS ORDERED: Midazolam 2 MG/2 ML VIAL ONE (10:14)
--- NOTE | 2017-06-18 11:08 | PCM.SURG1 ---
Surgeon's Initial Post Op Note - Surgeon's Notes Surgeon: tamara thorpe Director Of Medical Staff Services: none Type of Anesthesia: General Mask Pre-Operative Diagnosis: OAB, incontinence Operative Findings: same Post-Operative Diagnosis: same Operation Performed: cysto, botox injection Specimen/Specimens Removed: urine Estimated Blood Loss: EBL {In ML}: 0 Blood Products Given: N/A Drains Used: No Drains Post-Op Condition: Good Date of Surgery/Procedure: 06/18/17 Time of Surgery/Procedure: 11:00
[2017-06-18] MEDS ORDERED: HYDROmorphone 0.5 mg/0.5 ml ISec IVP PRN (11:12)
[2017-06-18 12:13] VITALS: BP 146/71; PULSE 65; RESP 18; TEMP 97.2; O2SAT 99
--- NOTE | 2017-06-19 10:12 | OP ---
PROCEDURE DATE: 06/18/2017. PREOPERATIVE DIAGNOSIS: Overactive bladder. POSTOPERATIVE DIAGNOSIS: Overactive bladder. PROCEDURE: Cystoscopy. Injection of Botox into bladder. SURGEON: Dr. Obdulia Shelley. DESCRIPTION OF PROCEDURE: Procedure as follows; perioperative antibiotics were administered. The patient was placed in lithotomy position. Anesthesia was provided by the anesthesiologist. A 22-[place] cystoscope sheath was introduced under direct vision. Procedure was performed under video endoscopic control. The urethra, prostate and bladder were inspected. FINDINGS: There was noted to be no stricture in the anterior urethra. There was evidence of previous prostatic resection. The prostatic fossa was wide opened and well healed. There was no bladder neck contraction. There were no mucosal lesions within the prostatic urethra. The was intact. The bladder demonstrated mild trabeculation. There was no bladder tumor. There was no bladder stone. The ureteral orifices normal position and shape. Injection of Botox was performed as follows. A total of 100 units were injected. The 100 units of Botox were diluted in 10 mL of saline. The Botox was injected at 20 sites each of 0.5 mL, using the flexible injection needle. There was 3 rows of injection of 6, 6, and 7 injections per row. The injections were performed behind the trigone. The ureteral orifices were identified and spared throughout the injection. Following injection of Botox, the bladder was reinspected. There was no active bleeding noted. The bladder was then drained. Cystoscope and sheath removed. The bladder drainage had been clear. Rectal examination was performed, there was no abnormal pelvic mass fixation or induration. The patient was returned to the supine position. The patient tolerated procedure without complication. Obdulia Shelley MD
== END 2017-06-18 12:32 | disposition home or self-care (01) ==
LOC: C.SDS 06:11
PROVIDERS: ATTEND Urology
DX: N32.81 Overactive bladder (principal); R32 Unspecified urinary incontinence
CPT/HCPCS: 52287; 82948; 87086; J0587

== ENCOUNTER 2017-11-22 03:33 | Emergency (ER) | payer MEDICARE ==
[2017-11-22 03:34] VITALS: BMI 34.0
--- NOTE | 2017-11-22 04:14 | C.PDOC ---
History Of Present Illness 72 year old male with PMHx of overactive bladder, insulin dependent DM presents to the ED c/o worsening urinary incontinence. Patient's also states patient 's legs are edematous but is not new. Patient denies fever, chills, nausea, vomit, weakness, numbness, CP, SOB. Time Seen by Provider: 11/22/17 04:10 Chief Complaint (Nursing): Male Genitourinary History Per: Patient History/Exam Limitations: no limitations Onset/Duration Of Symptoms: Days Current Symptoms Are (Timing): Still Present Quality Of Discomfort: "Pain" Associated Symptoms: Urinary Symptoms. denies: Nausea, Vomiting, Diarrhea Recent travel outside of the [place]: No Additional History Per: Patient Past Medical History Reviewed: Historical Data, Nursing Documentation, Vital Signs Vital Signs: Last Vital Signs Temp 99.1 F 11/22/17 03:49 Pulse 90 11/22/17 03:49 Resp 16 11/22/17 03:49 BP 173/79 H 11/22/17 03:49 Pulse Ox 95 11/22/17 04:58 - Medical History PMH: Anemia, Arthritis, Diabetes, HTN, Hypercholesterolemia, Hyperlipidemia, Peripheral Edema Surgical History: Coronary Stent (X1) - [facility] DETACHMENT AT RIGHT 1ST TOE, COMPLETE, OPEN APPROACH (01/30/17) DETACHMENT AT RIGHT 1ST TOE, HIGH, OPEN APPROACH (01/30/17) DILATION OF RIGHT PERONEAL ARTERY, PERCUTANEOUS APPROACH (12/26/16) EXTIRPATION OF MATTER FROM R PERONEAL ART, PERC APPROACH (12/26/16) INSERTION OF INTRALUM DEV INTO R FEM ART, PERC APPROACH (12/26/16) INSPECTION OF BLADDER, ENDO (06/21/15) RESECTION OF PROSTATE, ENDO (06/21/15) ULTRASONOGRAPHY OF RIGHT AND LEFT HEART, TRANSESOPHAGEAL (10/12/16) Family History: States: Unknown Family Hx - Social History Hx Alcohol Use: No Hx Substance Use: No - Immunization History Hx Tetanus Toxoid Vaccination: No Hx Influenza Vaccination: Yes Hx Pneumococcal Vaccination: Yes Review Of Systems Constitutional: Negative for: Fever, Chills Cardiovascular: Negative for: Chest Pain, Palpitations Respiratory: Negative for: Cough, Shortness of Breath Gastrointestinal: Negative for: Nausea, Vomiting Genitourinary: Positive for: Incontinence Musculoskeletal: Positive for: Other (leg swelling) Neurological: Negative for: Weakness, Numbness, Headache Physical Exam - Physical Exam Appears: Non-toxic, No Acute Distress Skin: Warm, Dry Head: Normacephalic Eye(s): bilateral: Normal Inspection Oral Mucosa: Moist Neck: Supple Chest: Symmetrical Cardiovascular: Rhythm Regular Respiratory: No Rales, No Rhonchi, No Wheezing Gastrointestinal/Abdominal: Bowel Sounds (active), Soft, No Tenderness, No Guarding, No Rebound, Other (obese) Extremity: No Tenderness, Pedal Edema (Bilateral), Capillary Refill (< 2 seconds ), Other (amputation right great toe) Extremity: Bilateral: Normal ROM Pulses: Left Dorsalis Pedis: Normal, Right Dorsalis Pedis: Normal Neurological/Psych: Oriented x3, Normal Speech Gait: Steady ED Course And Treatment - Laboratory Results Result Diagrams: 11/22/17 04:43 11/22/17 04:43 ECG: Interpreted By Me, Viewed By Me ECG Rhythm: Sinus Rhythm (81), 1st Degree HB, Nonspecific Changes O2 Sat by Pulse Oximetry: 95 (ON RA) Pulse Ox Interpretation: Normal Progress Note: Plan: - EKG. - LAbs. - CXR. - UA Disposition Counseled Patient/Family Regarding: Studies Performed, Diagnosis, Need For Followup - Disposition Referrals: Obdulia Shelley MD [Staff Provider] - Disposition: HOME/ ROUTINE Disposition Time: 04:14 Condition: FAIR Instructions: Urinary Incontinence in Men Forms: [facility] ([place]) - Clinical Impression Clinical Impression: Overactive bladder - Scribe Statement The provider has reviewed the documentation as recorded by the Scribe Bello Cornejo All medical record entries made by the Scribe were at my direction and personally dictated by me. I have reviewed the chart and agree that the record accurately reflects my personal performance of the history, physical exam, medical decision making, and the department course for this patient. I have also personally directed, reviewed, and agree with the discharge instructions and disposition.
[2017-11-22 04:50] LABS: BASO # 0.1 K/uL (0.0-0.2); BASO % 0.6 % (0.0-2.0); EOS # 0.4 K/uL (0.0-0.7); EOS % 4.4 % (0.0-4.0); HEMOGLOBIN 11.3 g/dL (12.0-18.0); LYMPH % 25.1 % (20.0-40.0); MEAN CELL VOLUME 87.7 fL (80.0-94.0); MEAN CORPUSCULAR HEMOGLOBIN 29.6 pg (27.0-31.0); MEAN CORPUSCULAR HGB CONC 33.7 g/dL (33.0-37.0); MEAN PLATELET VOLUME 8.6 fL (7.2-11.7); MONO # 0.6 K/uL (0.0-0.8); MONO % 6.9 % (0.0-10.0); NEUT # 5.1 K/uL (1.8-7.0); RBC 3.83 Mil/uL (4.40-5.90); RED CELL DISTRIBUTION WIDTH 13.7 % (11.5-14.5); WHITE BLOOD COUNT 8.1 K/uL (4.8-10.8)
[2017-11-22 04:54] LABS: INR 1.1; PROTHROMBIN TIME 12.1 SECONDS (9.7-12.2)
[2017-11-22 05:00] LABS: ALB/GLOB RATIO 1.1 (1.0-2.1); ALBUMIN 3.8 g/dL (3.5-5.0); ALT/SGPT 29 U/L (21-72); AST/SGOT 16 U/L (17-59); BLOOD UREA NITROGEN 29 mg/dL (9-20); CALCIUM 9.5 mg/dl (8.6-10.4); GFR AFRICAN-AMERICAN 52; GFR NON-AFRICAN AMERICAN 43
[2017-11-22 05:12] LABS: B-TYPE NATRIURETIC PEPTIDE 312 pg/mL (0-900)
[2017-11-22 05:27] VITALS: BP 160/70; PULSE 86; RESP 14; TEMP 97.4; O2SAT 97
--- NOTE | 2017-11-22 10:49 | RAD ---
Date of service: 11/22/2017 PROCEDURE: CHEST RADIOGRAPH, 1 VIEW HISTORY: SOB COMPARISON: 06/07/2017. FINDINGS: LUNGS: Clear. PLEURA: No pneumothorax or pleural fluid seen. CARDIOVASCULAR: No radiographic findings to suggest acute or significant cardiovascular disease. OSSEOUS STRUCTURES: No significant abnormalities. VISUALIZED UPPER ABDOMEN: Normal. OTHER FINDINGS: None. IMPRESSION: No active disease. No acute/significant interval changes.
--- NOTE | 2017-11-22 17:22 | CARD ---
APPROVED REPORT Date of service: 11/22/2017 EKG Measurement Heart [id number] <Conclusion> Sinus rhythm with 1st degree AV block Left axis deviation Abnormal ECG
== END 2017-11-22 05:27 | disposition home or self-care (01) ==
LOC: C.ER 03:33
DX: N32.81 Overactive bladder (principal); E11.9 Type 2 diabetes mellitus without complications; I10 Essential (primary) hypertension; E78.00 Pure hypercholesterolemia, unspecified; Z79.4 Long term (current) use of insulin; Z95.5 Presence of coronary angioplasty implant and graft

== ENCOUNTER 2018-01-12 15:13 | Inpatient (IN) | payer MEDICARE ==
[2018-01-12 15:18] VITALS: BMI 42.9
[2018-01-12 15:42] LABS: BASO # 0.1 K/uL (0.0-0.2); BASO % 0.5 % (0.0-2.0); EOS # 0.2 K/uL (0.0-0.7); EOS % 1.6 % (0.0-4.0); HEMOGLOBIN 11.3 g/dL (12.0-18.0); LYMPH # 1.9 K/uL (1.0-4.3); LYMPH % 13.4 % (20.0-40.0); MEAN CORPUSCULAR HEMOGLOBIN 29.5 pg (27.0-31.0); MEAN CORPUSCULAR HGB CONC 33.6 g/dL (33.0-37.0); MEAN PLATELET VOLUME 8.6 fL (7.2-11.7); MONO # 1.2 K/uL (0.0-0.8); MONO % 8.4 % (0.0-10.0); NEUT # 10.7 K/uL (1.8-7.0); NEUT % 76.1 % (50.0-75.0); RBC 3.82 Mil/uL (4.40-5.90); RED CELL DISTRIBUTION WIDTH 13.9 % (11.5-14.5); WHITE BLOOD COUNT 14.1 K/uL (4.8-10.8)
[2018-01-12 15:50] LABS: INR 1.2; PROTHROMBIN TIME 12.6 SECONDS (9.7-12.2)
[2018-01-12 15:54] LABS: ALBUMIN 3.7 g/dL (3.5-5.0); ALT/SGPT 19 U/L (21-72); AST/SGOT 14 U/L (17-59); BLOOD UREA NITROGEN 41 mg/dL (9-20); CALCIUM 9.5 mg/dl (8.6-10.4); GFR NON-AFRICAN AMERICAN 33
--- NOTE | 2018-01-12 16:03 | C.PDOC ---
History Of Present Illness 72 y/o male, with Hx of CVA, presents to the ED complaining of generalized weakness and a decrease in alertness that began earlier today, as per . Both the patient and his are poor historians. The patient denies any abdominal pain or vomiting. According to the , he has been experiencing diarrhea. The patient has a coronary stent and chaney catheter in place. Time Seen by Provider: 01/12/18 15:24 Chief Complaint (Nursing): Altered Mental Status History Per: Patient History/Exam Limitations: None Onset/Duration Of Symptoms: Hrs Character Of Deficits: Arm: Weakness (b/l) Speech Is: Slurred Additional History Per: Family () Associated Symptoms: Weakness Past Medical History Reviewed: Historical Data, Nursing Documentation, Vital Signs Vital Signs: Last Vital Signs Temp 98.5 F 01/12/18 15:23 Pulse 86 01/12/18 15:23 Resp 18 01/12/18 15:23 BP 136/68 01/12/18 15:23 Pulse Ox 92 L 01/12/18 16:55 - Medical History PMH: Anemia, Arthritis, Diabetes, HTN, Hypercholesterolemia, Hyperlipidemia, Peripheral Edema Surgical History: Coronary Stent (X1) - [facility] Procedures DETACHMENT AT RIGHT 1ST TOE, COMPLETE, OPEN APPROACH (01/30/17) DETACHMENT AT RIGHT 1ST TOE, HIGH, OPEN APPROACH (01/30/17) DILATION OF RIGHT PERONEAL ARTERY, PERCUTANEOUS APPROACH (12/26/16) EXTIRPATION OF MATTER FROM R PERONEAL ART, PERC APPROACH (12/26/16) INSERTION OF INTRALUM DEV INTO R FEM ART, PERC APPROACH (12/26/16) INSPECTION OF BLADDER, ENDO (06/21/15) RESECTION OF PROSTATE, ENDO (06/21/15) ULTRASONOGRAPHY OF RIGHT AND LEFT HEART, TRANSESOPHAGEAL (10/12/16) Family History: States: Unknown Family Hx - Social History Hx Alcohol Use: No Hx Substance Use: No - Immunization History Hx Tetanus Toxoid Vaccination: No Hx Influenza Vaccination: Yes Hx Pneumococcal Vaccination: Yes Review Of Systems Review Of Systems: ROS cannot be obtained secondary to pt's inabilty to answer questions. Physical Exam - Physical Exam Appears: Non-toxic, No Acute Distress Skin: Normal Color, Warm, Dry Head: Atraumatic, Normacephalic Eye(s): bilateral: Normal Inspection, PERRL, EOMI Ear(s): Bilateral: Normal Nose: Normal Oral Mucosa: Moist Chest: Symmetrical Cardiovascular: Rhythm Regular, Other Respiratory: Normal Breath Sounds, No Rales, No Rhonchi, No Wheezing Gastrointestinal/Abdominal: Normal Exam, Soft, No Tenderness Male Genital: Other (indwellig chaney catheter ) Extremity: Bilateral: Other (4/5 uppper extremity strength (normal as per )) Neurological/Psych: No Normal Speech (slurred speech; baseline (as per )), Other (awaker. alert. weakness and mental status change) ED Course And Treatment - Laboratory Results Result Diagrams: 01/12/18 15:37 01/12/18 15:37 Interpretation Of ECG: NSR 70 bpm. first degree AV block. no deviation. non specific T-wave changes O2 Sat by Pulse Oximetry: 92 (RA) Pulse Ox Interpretation: Abnormal - Other Rad Chest X-Ray: Viewed By Me, Read By Radiologist Interpretation: Impression: Moderate venous congestion. Right hilar prominence. Enlarged ectatic aorta. Cardiomegaly. Calcification at the aortic knob. - CT Scan/US Head Other Rad Studies (CT/US): Read By Radiologist, Radiology Report Reviewed CT/US Interpretation: IMPRESSION: No acute intracranial abnormality. Chronic microvascular ischemic changes. Bilateral basal ganglia calcifications. Punctate left basal ganglia lacunar infarct. Chronic hypodensities in the bilateral cerebellum; left greater than right suggestive for old infarcts. Punctate lacunar infarct in the right thalamus. If symptoms persists, consider correlation with MRI. Medical Decision Making Medical Decision Making: Assessment: weakness and mental status change Plan: -CT Head -Ammonia -CMP -Drug Screen -Lact Acid -TSH -Troponin -CBC -PTT -PT -Chest X-Ray -Blood culture -Urine culture -UA Disposition Discussed With : Zuleima Jackson Doctor Will See Patient In The: Hospital Counseled Patient/Family Regarding: Studies Performed, Diagnosis - Disposition Disposition: HOSPITALIZED Disposition Time: 16:55 Condition: FAIR - Clinical Impression Clinical Impression: CHF (congestive heart failure), Weakness - PA / P[employer]ER / Resident Statement MD/DO has reviewed & agrees with the documentation as recorded. - Scribe Statement The provider has reviewed the documentation as recorded by the Scribe (Natalya Thornton) All medical record entries made by the Scribe were at my direction and personally dictated by me. I have reviewed the chart and agree that the record accurately reflects my personal performance of the history, physical exam, medical decision making, and the department course for this patient. I have also personally directed, reviewed, and agree with the discharge instructions and disposition.
--- NOTE | 2018-01-12 16:10 | CT ---
Date of service: 01/12/2018 PROCEDURE: CT HEAD WITHOUT CONTRAST. HISTORY: Altered mental status COMPARISON: CT head dated 10/10/2016 TECHNIQUE: Axial computed tomography images were obtained through the head/brain without intravenous contrast. Radiation dose: Total exam DLP = 1277 mGy-cm. This CT exam was performed using one or more of the following dose reduction techniques: Automated exposure control, adjustment of the mA and/or kV according to patient size, and/or use of iterative reconstruction technique. FINDINGS: HEMORRHAGE: No intracranial hemorrhage. BRAIN: No mass effect or edema. Scattered focal lucencies in the subcortical and periventricular white matter suggestive for chronic microvascular ischemic change. Bilateral basal ganglia calcifications. Punctate left basal ganglia lacunar infarct. Chronic hypodensities in the bilateral cerebellum; left greater than right suggestive for old infarcts. Punctate lacunar infarct in the right thalamus. VENTRICLES: Prominent. CALVARIUM: Unremarkable. PARANASAL SINUSES: Unremarkable as visualized. No significant inflammatory changes. MASTOID AIR CELLS: Unremarkable as visualized. No inflammatory changes. OTHER FINDINGS: Intracranial arterial calcifications. IMPRESSION: No acute intracranial abnormality. Chronic microvascular ischemic changes. Bilateral basal ganglia calcifications. Punctate left basal ganglia lacunar infarct. Chronic hypodensities in the bilateral cerebellum; left greater than right suggestive for old infarcts. Punctate lacunar infarct in the right thalamus. If symptoms persists, consider correlation with MRI.
--- NOTE | 2018-01-12 16:27 | RAD ---
Chest x-ray single frontal view History: Altered mental status. Comparison: 11/22/2017 Findings: Moderate venous congestion. Right hilar prominence. Enlarged ectatic aorta. Cardiomegaly. Calcification at the aortic knob. Degenerative changes in the spine and shoulders. Impression: Moderate venous congestion. Right hilar prominence. Enlarged ectatic aorta. Cardiomegaly. Calcification at the aortic knob.
[2018-01-12 18:35] LABS: BARBITURATES, UR NEGATIVE (NEGATIVE); BENZODIAZEPINES, UR NEGATIVE (NEGATIVE); OPIATES, UR NEGATIVE (NEGATIVE); PHENCYCLIDINE, UR NEGATIVE (NEGATIVE)
[2018-01-12 18:38] LABS: URINE BACTERIA FEW (<OCC); URINE BILIRUBIN NEGATIVE (NEGATIVE); URINE BLOOD NEGATIVE (NEGATIVE); URINE CLARITY Clear (Clear); URINE COLOR Straw (YELLOW); URINE GLUCOSE (UA) NORMAL (Normal); URINE LEUKOCYTE ESTERASE 1+ Leu/uL (Negative); URINE PROTEIN 2+ mg/dL (NEGATIVE); URINE UROBILINOGEN NORMAL mg/dL (0.2-1.0)
[2018-01-12] MEDS ORDERED: cefTRIAXone 1 gm 1 GM/100 ML BAG IVPB ONE (19:06)
[2018-01-12] MEDS ORDERED: Pneumococcal 23-Valent Vaccine IM ONE (20:33)
[2018-01-12] MEDS: (Novolin R) Insulin Human Regular 100 units/ml vial SC SCH (21:27)
[2018-01-13] MEDS: (Novolin R) Insulin Human Regular 100 units/ml vial SC SCH ×4 (08:37→21:41)
[2018-01-13] MEDS ORDERED: Azithromycin 500 MG in Sodium Chloride 0.9% 250 ML IVPB SCH (18:00)
--- NOTE | 2018-01-13 20:54 | CP.PCM.CON ---
History of Present Illness - History of Present Illness History of Present Illness: CC: Altered mental status and dyspnea 72 y/o male, with Hx of CVA, presents to the ED complaining of generalized weakness and a decrease in alertness that began earlier today, as per . Both the patient and his are poor historians. The patient denies any abdominal pain or vomiting. According to the , he has been experiencing diarrhea. The patient has a coronary stent and chaney catheter in place. Chief Complaint (Nursing): Altered Mental Status History Per: Patient History/Exam Limitations: None Onset/Duration Of Symptoms: Hrs Character Of Deficits: Arm: Weakness (b/l) Speech Is: Slurred Additional History Per: Family () Associated Symptoms: Weakness - Medical History PMH: Anemia, Arthritis, Diabetes, HTN, Hypercholesterolemia, Hyperlipidemia, Peripheral Edema Surgical History: Coronary Stent (X1) - [facility] Procedures DETACHMENT AT RIGHT 1ST TOE, COMPLETE, OPEN APPROACH (01/30/17) DETACHMENT AT RIGHT 1ST TOE, HIGH, OPEN APPROACH (01/30/17) DILATION OF RIGHT PERONEAL ARTERY, PERCUTANEOUS APPROACH (12/26/16) EXTIRPATION OF MATTER FROM R PERONEAL ART, PERC APPROACH (12/26/16) INSERTION OF INTRALUM DEV INTO R FEM ART, PERC APPROACH (12/26/16) INSPECTION OF BLADDER, ENDO (06/21/15) RESECTION OF PROSTATE, ENDO (06/21/15) ULTRASONOGRAPHY OF RIGHT AND LEFT HEART, TRANSESOPHAGEAL (10/12/16) Family History: States: Unknown Family Hx - Social History Hx Alcohol Use: No Hx Substance Use: No - Immunization History Hx Tetanus Toxoid Vaccination: No Hx Influenza Vaccination: Yes Hx Pneumococcal Vaccination: Yes Review Of Systems Review Of Systems: ROS cannot be obtained secondary to pt's inabilty to answer questions. Physical Exam - Physical Exam Appears: Non-toxic, No Acute Distress Skin: Normal Color, Warm, Dry Head: Atraumatic, Normacephalic Eye(s): bilateral: Normal Inspection, PERRL, EOMI Ear(s): Bilateral: Normal Nose: Normal Oral Mucosa: Moist Chest: Symmetrical Cardiovascular: Rhythm Regular, Other Respiratory: Normal Breath Sounds, No Rales, No Rhonchi, No Wheezing Gastrointestinal/Abdominal: Normal Exam, Soft, No Tenderness Male Genital: Other (indwellig chaney catheter ) Extremity: Bilateral: Other (4/5 uppper extremity strength (normal as per )) Neurological/Psych: No Normal Speech (slurred speech; baseline (as per )), Other (awaker. alert. weakness and mental status change) Past Patient History - Infectious Disease Hx of Infectious Diseases: None - Past Medical History & Family History Past Medical History?: Yes - Past Social History Smoking Status: Never Smoked - CARDIAC Hx Hypercholesterolemia: Yes Hx Hypertension: Yes - NEUROLOGICAL HX Cerebrovascular Accident: Yes - HEENT Hx Cataracts: Yes (BILAT.) - ENDOCRINE/METABOLIC Hx Endocrine Disorders: Yes Hx Diabetes Mellitus Type 2: Yes - HEMATOLOGICAL/ONCOLOGICAL Hx Anemia: Yes - INTEGUMENTARY Hx Dermatological Problems: Yes - MUSCULOSKELETAL/RHEUMATOLOGICAL Hx Arthritis: Yes - GASTROINTESTINAL Hx Gastrointestinal Disorders: Yes - GENITOURINARY/GYNECOLOGICAL Hx Prostate Problems: Yes - PSYCHIATRIC Hx Substance Use: No - SURGICAL HISTORY Hx Coronary Stent: Yes (X1) - ANESTHESIA Hx Anesthesia: Yes Hx Anesthesia Reactions: No Hx Malignant Hyperthermia: No Meds Allergies/Adverse Reactions: Allergies Allergy/AdvReac Type Severity Reaction Status Date / Time No Known Allergies Allergy Verified 01/12/18 15:24 - Medications Medications: Current Medications Apixaban (Eliquis) 2.5 mg PO BID [facility] Last Admin: 01/13/18 17:44 Dose: 2.5 mg Furosemide (Lasix) 40 mg IVP DAILY [facility] Last Admin: 01/13/18 09:54 Dose: 40 mg Glipizide (Glucotrol) 5 mg PO BID [facility] Last Admin: 01/13/18 17:44 Dose: 5 mg Azithromycin 500 mg/ Sodium (Chloride) 250 mls @ 250 mls/hr IVPB Q24H [facility] PRN Reason: Protocol Last Admin: 01/13/18 17:44 Dose: 250 mls/hr Insulin Human Regular (Novolin R) 0 unit SC ACHS [facility] PRN Reason: Protocol Last Admin: 01/13/18 17:46 Dose: 2 unit Lactulose (Enulose) 20 gm PO DAILY PRN PRN Reason: Constipation Last Admin: 01/13/18 03:57 Dose: 20 gm Losartan Potassium (Cozaar) 50 mg PO DAILY [facility] Last Admin: 01/13/18 09:54 Dose: 50 mg Metformin HCl (Glucophage) 500 mg PO BIDCC [facility] Last Admin: 01/13/18 17:44 Dose: 500 mg Pregabalin (Lyrica) 50 mg PO DAILY [facility] Last Admin: 01/13/18 09:54 Dose: 50 mg Tramadol HCl (Ultram) 50 mg PO ONCE ONE Stop: 01/13/18 21:01 Results - Vital Signs Recent Vital Signs: Last Vital Signs Temp 98.3 F 01/13/18 16:17 Pulse 84 01/13/18 18:00 Resp 20 01/13/18 16:17 BP 168/90 H 01/13/18 16:17 Pulse Ox 96 01/13/18 16:17 - Labs Result Diagrams: 01/12/18 15:37 01/12/18 15:37 Labs: Laboratory Results - last 24 hr 01/12/18 01/13/18 01/13/18 21:12 06:41 11:25 POC Glucose (mg/dL) 204 H 162 H 199 H 01/13/18 16:31 POC Glucose (mg/dL) 207 H Assessment & Plan - Assessment and Plan (Free Text) Assessment: (1) Hx CVA (cerebrovascular accident) and altered MS Assessment & Plan: Management as per neurology Status: Acute (2) CAD (coronary artery disease) Assessment & Plan: s/p PCI as above Status: Acute Continue DAP (3) HTN (hypertension) Assessment & Plan: Continue HTN meds Status: Chronic (4) Dyslipidemia Assessment & Plan: Continue Statin; high dose for plaque stabilization Status: Chronic (5) CKD Assessment & Plan: Mgt as per PMD or Nephro Status: Acute (6) Diabetes mellitus Assessment & Plan: Status: Chronic (7) Sleep apnea Assessment & Plan: Status: Chronic
[2018-01-14 07:32] LABS: HDL CHOLESTEROL 30 mg/dL (30-70)
[2018-01-14 07:42] LABS: LDL CHOLESTEROL 101 mg/dL (0-129)
[2018-01-14 07:43] LABS: B-TYPE NATRIURETIC PEPTIDE 658 pg/mL (0-900); CK-MB 1.13 ng/mL (0.0-3.38)
--- NOTE | 2018-01-14 08:10 | HP ---
The patient is a 72-year-old male. The patient was seen and examined at the bedside on 01/13/2018. CHIEF COMPLAINT: Altered mental status. HISTORY OF PRESENT ILLNESS: The patient is a 72-year-old male with history of CVA, came to the emergency department, complaining of generalized weakness, decrease in alertness and that began early on the day of admission as per . Both the patient and his are poor historians. The patient denies any abdominal pain. No nausea or vomiting. According to , the patient has been experiencing diarrhea. The patient has coronary artery disease, cardiac stent, has Carr catheter in place, feeling fatigued and tired, weakness. PAST MEDICAL HISTORY: Anemia, diabetes mellitus, hypertension, hypercholesterolemia, hyperlipidemia, peripheral edema, history of coronary stents. FAMILY HISTORY: Father and mother, noncontributory. HABITS: No smoking. No drugs. No ethanol. REVIEW OF SYSTEMS: The patient was seen and examined at bedside, sitting on the chair. He recognized me, but he is getting episodes of confusion back and forth, having Carr catheter. He is a poor historian. No nausea, vomiting, or diarrhea. No fever. No chills. No headaches. No dizziness. No dermatitis. PHYSICAL EXAMINATION: VITAL SIGNS: Temperature 98.5, pulse 86, respiratory rate 18, blood pressure 136/68, pulse oximetry 92. HEENT: Head: Normocephalic and atraumatic. Eyes: PERRLA. Extraocular muscles intact. Conjunctivae clear. Nose patent. NECK: Supple. No carotid bruit, JVD, or thyromegaly. CHEST: Bilaterally symmetrical. HEART: S1 and S2 positive. LUNGS: Clear to auscultation. ABDOMEN: Soft. Bowel sounds present. No organomegaly. EXTREMITIES: No edema. No cyanosis. NEUROLOGIC: The patient is awake, alert, but as per confuse , and for me it looks like baseline. Sometimes getting periods of confusion. LABORATORY DATA: White blood cells 14.1, hemoglobin 11.3, hematocrit 33.6, platelets 339. Sodium 142, potassium 5.3, BUN 41, creatinine 2, glucose 134. ASSESSMENT AND PLAN: The patient is a 72-year-old male with leukocytosis, anemia, hyperkalemia, renal insufficiency, hyperglycemia, came with fatigue, weakness, altered mental status as per . CAT scan was begun, has congestive heart failure. The patient is a poor historian, has history of arthritis, diabetes mellitus, hypercholesterolemia, hyperlipidemia, peripheral edema, history of coronary stents. The patient has Carr catheter. We called the Urology consult because we do not know the reason of his catheter. We called Cardiology consult for congestive heart failure, seen by Dr. Juanito Acosta. History of cerebrovascular accident, status post percutaneous coronary intervention. Continue present treatment, high doses of statin. Chronic kidney disease, sleep apnea syndrome, continue present treatment. Gastrointestinal and deep venous thrombosis prophylaxis. We will follow up. Zuleima Jackson MD MTDD
[2018-01-14] MEDS: (Novolin R) Insulin Human Regular 100 units/ml vial SC SCH ×4 (08:33→22:53)
[2018-01-14 08:36] LABS: FOLATE > 20.0 ng/mL
--- NOTE | 2018-01-14 09:49 | CP.PCM.CON ---
History of Present Illness - History of Present Illness History of Present Illness: PGY-2 neurology consult note for Dr Rock Mr Campo is a 72 year old male with a PMHx of multi-focal CVA's, CAD s/p 1 stent, grade V atheroma of aortic arch, HLD, uncontrolled DM2, HTN, hx of TURP who presented with altered mental status and generalized weakness per . Per , patient had a fall 3 days ago due to weakness in his legs - he did not hit his head. That same day he was supposed to have "bladder imaging" but was too weak to be placed on the table. Then 2 days ago the patient was even more fatigued w/ worksening generalized weakness and was instructed to come to ED. He normally ambulates with a walker. Upon evaluation patient patient was neurologically at his baseline per . He has 4/5 motor strength in all extremities. He was AAOx3. He still complained of generalized weakness. PMHx: multi-focal CVA's, CAD s/p 1 stent, grade V atheroma of aortic arch, HLD, uncontrolled DM2, HTN, hx of TURP PSHx: 1 drug eluting cardiac stent 02/2017, hx of TURP x2 All: NKA Home Meds: pregabalin 50mg po qd, pravastatin 40mg po qd, losartan 50mg po qd, glipizide-metformin 5-500mg, furosemide 40mg po qd, plavix 75mg po qd, eliquis 2.5mg po bid FamHx: Mother with HTN SocialHx: Denies tobacco, alcohol, or illicits Review of Systems - Constitutional Constitutional: absent: Chills, Fever - EENT Eyes: absent: Blurred Vision - Cardiovascular Cardiovascular: absent: Chest Pain - Respiratory Respiratory: absent: Dyspnea, Wheezing - Gastrointestinal Gastrointestinal: absent: Abdominal Pain - Genitourinary Genitourinary: absent: Dysuria - Integumentary Integumentary: absent: Bleeding Lesions - Neurological Neurological: Weakness. absent: Disequilibrium, Dizziness, Focal Weakness Past Patient History - Infectious Disease Hx of Infectious Diseases: None - Past Medical History & Family History Past Medical History?: Yes - Past Social History Smoking Status: Never Smoked - CARDIAC Hx Hypercholesterolemia: Yes Hx Hypertension: Yes - NEUROLOGICAL HX Cerebrovascular Accident: Yes - HEENT Hx Cataracts: Yes (BILAT.) - ENDOCRINE/METABOLIC Hx Endocrine Disorders: Yes Hx Diabetes Mellitus Type 2: Yes - HEMATOLOGICAL/ONCOLOGICAL Hx Anemia: Yes - INTEGUMENTARY Hx Dermatological Problems: Yes - MUSCULOSKELETAL/RHEUMATOLOGICAL Hx Arthritis: Yes - GASTROINTESTINAL Hx Gastrointestinal Disorders: Yes - GENITOURINARY/GYNECOLOGICAL Hx Prostate Problems: Yes - PSYCHIATRIC Hx Substance Use: No - SURGICAL HISTORY Hx Coronary Stent: Yes (X1) - ANESTHESIA Hx Anesthesia: Yes Hx Anesthesia Reactions: No Hx Malignant Hyperthermia: No Meds Allergies/Adverse Reactions: Allergies Allergy/AdvReac Type Severity Reaction Status Date / Time No Known Allergies Allergy Verified 01/12/18 15:24 - Medications Medications: Current Medications Apixaban (Eliquis) 2.5 mg PO BID [facility] Last Admin: 01/13/18 17:44 Dose: 2.5 mg Aspirin (Ecotrin) 81 mg PO DAILY [facility] Furosemide (Lasix) 40 mg IVP DAILY [facility] Last Admin: 01/13/18 09:54 Dose: 40 mg Glipizide (Glucotrol) 5 mg PO BID [facility] Last Admin: 01/13/18 17:44 Dose: 5 mg Azithromycin 500 mg/ Sodium (Chloride) 250 mls @ 250 mls/hr IVPB Q24H [facility] PRN Reason: Protocol Last Admin: 01/13/18 17:44 Dose: 250 mls/hr Insulin Human Regular (Novolin R) 0 unit SC ACHS [facility] PRN Reason: Protocol Last Admin: 01/14/18 08:33 Dose: 2 unit Lactulose (Enulose) 20 gm PO DAILY [facility] PRN Reason: Constipation Last Admin: 01/13/18 03:57 Dose: 20 gm Losartan Potassium (Cozaar) 50 mg PO DAILY [facility] Last Admin: 01/13/18 09:54 Dose: 50 mg Metformin HCl (Glucophage) 500 mg PO BIDCC [facility] Last Admin: 01/14/18 08:33 Dose: 500 mg Pregabalin (Lyrica) 50 mg PO DAILY [facility] Last Admin: 01/13/18 09:54 Dose: 50 mg Rosuvastatin Calcium (Crestor) 5 mg PO HS [facility] Last Admin: 01/13/18 21:40 Dose: 5 mg Physical Exam - Constitutional Appears: Well, No Acute Distress Additional comments: obesity - Head Exam Head Exam: ATRAUMATIC, NORMAL INSPECTION - Eye Exam Eye Exam: EOMI, PERRL. absent: Scleral icterus - ENT Exam ENT Exam: Mucous Membranes Moist - Neck Exam Neck exam: Positive for: Normal Inspection. Negative for: Tenderness - Respiratory Exam Respiratory Exam: Wheezes, NORMAL BREATHING PATTERN - Cardiovascular Exam Cardiovascular Exam: REGULAR RHYTHM, +S1, +S2. absent: Tachycardia, JVD, Systolic Murmur - GI/Abdominal Exam GI & Abdominal Exam: Normal Bowel Sounds, Soft. absent: Distended - Extremities Exam Extremities exam: Positive for: normal capillary refill, pedal edema, pedal pulses present - Neurological Exam Neurological exam: Alert, CN II-XII Intact, Motor Sensory Deficit, Oriented x3 - Psychiatric Exam Psychiatric exam: Flat Affect - Skin Skin Exam: Normal Color Results - Vital Signs Recent Vital Signs: Last Vital Signs Temp 98.3 F 01/14/18 00:00 Pulse 83 01/14/18 02:04 Resp 20 01/14/18 00:00 BP 174/77 H 01/14/18 00:00 Pulse Ox 95 01/14/18 00:00 - Labs Result Diagrams: 01/12/18 15:37 01/12/18 15:37 Labs: Laboratory Results - last 24 hr 01/13/18 01/13/18 01/13/18 11:25 16:31 20:57 POC Glucose (mg/dL) 199 H 207 H 169 H Hemoglobin A1c Iron Total Creatine Kinase CK-MB (Mass) Troponin I NT-Pro-B Natriuret Pep Triglycerides Cholesterol LDL Cholesterol Direct HDL Cholesterol Vitamin B12 Folate 01/14/18 01/14/18 01/14/18 06:56 06:59 07:00 POC Glucose (mg/dL) 203 H Hemoglobin A1c 8.5 H Iron 47 L Total Creatine Kinase CK-MB (Mass) Troponin I NT-Pro-B Natriuret Pep Triglycerides Cholesterol LDL Cholesterol Direct HDL Cholesterol Vitamin B12 Folate 01/14/18 07:01 POC Glucose (mg/dL) Hemoglobin A1c Iron Total Creatine Kinase 274 H CK-MB (Mass) 1.13 Troponin I 0.0200 NT-Pro-B Natriuret Pep 658 Triglycerides 214 H D Cholesterol 182 LDL Cholesterol Direct 101 HDL Cholesterol 30 Vitamin B12 860 Folate > 20.0 Assessment & Plan - Assessment and Plan (Free Text) Plan: Mr Campo is a 72 year old male with a PMHx of multi-focal CVA's, CAD s/p 1 stent, grade V atheroma of aortic arch, HLD, uncontrolled DM2, HTN, hx of TURP who presented with altered mental status and generalized weakness per : Altered Mental Status -CT head - No acute intracranial abnormality. Chronic microvascular ischemic changes. Bilateral basal ganglia calcifications. Punctate left basal ganglia lacunar infarct. Chronic hypodensities in the bilateral cerebellum; left greater than right suggestive for old infarcts. Punctate lacunar infarct in the right thalamus. If symptoms persists, consider correlation with MRI. -F/U MRI w/o contrast Hx of CVA -Patient has hx of multiple CVAs in past (total 4) -[place] in 02/2017 showed high grade aortic atheroma which could be possible source of multifocal CVA -F/U MRI w/o contrast
[2018-01-14] MEDS ORDERED: Dextrose 5%/0.9% NS 1,000 ML IV SCH (12:15)
--- NOTE | 2018-01-14 12:37 | CP.PCM.CON ---
History of Present Illness - History of Present Illness History of Present Illness: INFECTIOUS DISEASE CONSULT. HPI; 72-year-old male morbidly obese with history of multifocal CVAs, CAD S/P X1 drug -eluting stent, grade 5 ATHEROMA OF aortic arch, HLD, uncontrolled diabetes mellitus type 2, hypertension, history of TURP with chronic Cain insertion who is admitted 01/12/18 with altered mental status and generalized weakness. Patient states he has been having increased weakness and questionable small stroke as he fell 3 days ago due to weakness in his legs. Patient also felt extreme fatigue and worsening generalized weakness and was instructed to come to the ER. Patient presently out of bed on chair and able to answer questions appropriately. He still complains off weakness especially right-sided. CT of the head showed left basal ganglia lacunar infarct and right thalamus infarct. Patient also has bilateral cerebellar old infarcts L>R. Infectious disease consultation requested by DR HENRY as blood cultures of 01/12 today reported gram-positive cocci in clusters. Also urine culture came back positive for CITROBACTER DIVERSUS/ENTEROCOCCUS FAECALIS. S- ampicillin.. Patient presently on IV Zithromax. PMHx: multi-focal CVA's, CAD s/p 1 stent, grade V atheroma of aortic arch, HLD, uncontrolled DM2, HTN, hx of TURP PSHx: 1 drug eluting cardiac stent 02/2017, hx of TURP x2 All: NKA Home Meds: pregabalin 50mg po qd, pravastatin 40mg po qd, losartan 50mg po qd, glipizide-metformin 5-500mg, furosemide 40mg po qd, plavix 75mg po qd, eliquis 2.5mg po bid. FamHx: Mother with HTN SocialHx: Denies tobacco, alcohol, or illicits Review of Systems - Constitutional Constitutional: Frequent Falls, Weight Gain. absent: Chills, Fever - EENT Nose/Mouth/Throat: absent: Mouth Lesions, Odynophagia - Cardiovascular Cardiovascular: Dyspnea on Exertion, Pedal Edema. absent: Chest Pain - Respiratory Respiratory: absent: Cough - Gastrointestinal Gastrointestinal: absent: Abdominal Pain - Genitourinary Genitourinary: Difficulty Urinating, Hx /Renal Surgery (chronic Cain in place.) - Musculoskeletal Musculoskeletal: As Per HPI - Neurological Neurological: Focal Weakness, Lack of Coordination - Endocrine Endocrine: Fatigue - Hematologic/Lymphatic Hematologic: As Per HPI Past Patient History - Infectious Disease Hx of Infectious Diseases: None - Past Medical History & Family History Past Medical History?: Yes - Past Social History Smoking Status: Never Smoked - CARDIAC Hx Hypercholesterolemia: Yes Hx Hypertension: Yes - NEUROLOGICAL HX Cerebrovascular Accident: Yes - HEENT Hx Cataracts: Yes (BILAT.) - ENDOCRINE/METABOLIC Hx Endocrine Disorders: Yes Hx Diabetes Mellitus Type 2: Yes - HEMATOLOGICAL/ONCOLOGICAL Hx Anemia: Yes - INTEGUMENTARY Hx Dermatological Problems: Yes - MUSCULOSKELETAL/RHEUMATOLOGICAL Hx Arthritis: Yes - GASTROINTESTINAL Hx Gastrointestinal Disorders: Yes - GENITOURINARY/GYNECOLOGICAL Hx Prostate Problems: Yes - PSYCHIATRIC Hx Substance Use: No - SURGICAL HISTORY Hx Coronary Stent: Yes (X1) - ANESTHESIA Hx Anesthesia: Yes Hx Anesthesia Reactions: No Hx Malignant Hyperthermia: No Meds Allergies/Adverse Reactions: Allergies Allergy/AdvReac Type Severity Reaction Status Date / Time No Known Allergies Allergy Verified 01/12/18 15:24 - Medications Medications: Current Medications Apixaban (Eliquis) 2.5 mg PO BID [facility] Last Admin: 01/14/18 10:23 Dose: 2.5 mg Aspirin (Ecotrin) 81 mg PO DAILY [facility] Last Admin: 01/14/18 10:23 Dose: 81 mg Furosemide (Lasix) 40 mg IVP DAILY [facility] Last Admin: 01/14/18 10:23 Dose: 40 mg Glipizide (Glucotrol) 5 mg PO BID [facility] Last Admin: 01/14/18 10:23 Dose: 5 mg Azithromycin 500 mg/ Sodium (Chloride) 250 mls @ 250 mls/hr IVPB Q24H [facility] PRN Reason: Protocol Last Admin: 01/13/18 17:44 Dose: 250 mls/hr Dextrose/Sodium Chloride (Dextrose 5%/0.45% Ns 1000 Ml) 1,000 mls @ 60 mls/hr IV .[id number] [facility] Insulin Human Regular (Novolin R) 0 unit SC ACHS [facility] PRN Reason: Protocol Last Admin: 01/14/18 08:33 Dose: 2 unit Lactulose (Enulose) 20 gm PO DAILY PRN PRN Reason: Constipation Last Admin: 01/13/18 03:57 Dose: 20 gm Losartan Potassium (Cozaar) 50 mg PO DAILY [facility] Last Admin: 01/14/18 10:23 Dose: 50 mg Metformin HCl (Glucophage) 500 mg PO BIDCC [facility] Last Admin: 01/14/18 08:33 Dose: 500 mg Pregabalin (Lyrica) 50 mg PO DAILY [facility] Last Admin: 01/14/18 10:22 Dose: 50 mg Rosuvastatin Calcium (Crestor) 5 mg PO HS [facility] Last Admin: 01/13/18 21:40 Dose: 5 mg Physical Exam - Constitutional Appears: No Acute Distress Additional comments: morbidly obese - Head Exam Head Exam: NORMAL INSPECTION - Eye Exam Eye Exam: EOMI, PERRL - Neck Exam Neck exam: Positive for: Normal Inspection - Respiratory Exam Respiratory Exam: Clear to Auscultation Bilateral, NORMAL BREATHING PATTERN - Cardiovascular Exam Cardiovascular Exam: REGULAR RHYTHM, +S1, +S2 - GI/Abdominal Exam GI & Abdominal Exam: Normal Bowel Sounds, Soft (obese). absent: Tenderness - Extremities Exam Extremities exam: Positive for: pedal edema, pedal pulses present. Negative for : calf tenderness - Neurological Exam Neurological exam: Alert, CN II-XII Intact - Psychiatric Exam Psychiatric exam: Normal Mood - Skin Skin Exam: Normal Color, Warm Results - Vital Signs Recent Vital Signs: Last Vital Signs Temp 98.0 F 01/14/18 07:06 Pulse 114 H 01/14/18 07:23 Resp 20 01/14/18 07:06 BP 158/99 H 01/14/18 10:23 Pulse Ox 93 L 01/14/18 07:06 - Labs Result Diagrams: 01/15/18 07:25 01/15/18 07:25 Labs: Laboratory Results - last 24 hr 01/13/18 01/13/18 01/14/18 16:31 20:57 06:56 POC Glucose (mg/dL) 207 H 169 H Hemoglobin A1c Iron 47 L Total Creatine Kinase CK-MB (Mass) Troponin I NT-Pro-B Natriuret Pep Triglycerides Cholesterol LDL Cholesterol Direct HDL Cholesterol Vitamin B12 Folate 01/14/18 01/14/18 01/14/18 06:59 07:00 07:01 POC Glucose (mg/dL) 203 H Hemoglobin A1c 8.5 H Iron Total Creatine Kinase 274 H CK-MB (Mass) 1.13 Troponin I 0.0200 NT-Pro-B Natriuret Pep 658 Triglycerides 214 H D Cholesterol 182 LDL Cholesterol Direct 101 HDL Cholesterol 30 Vitamin B12 860 Folate > 20.0 01/14/18 11:46 POC Glucose (mg/dL) 253 H Hemoglobin A1c Iron Total Creatine Kinase CK-MB (Mass) Troponin I NT-Pro-B Natriuret Pep Triglycerides Cholesterol LDL Cholesterol Direct HDL Cholesterol Vitamin B12 Folate - Imaging and Cardiology Chest x-ray Status: Report reviewed by me (moderate venous congestion right hilar prominence.) Assessment & Plan (1) Gram-positive bacteremia Assessment and Plan: PANCULTURES BLOOD CULTURES 2 SETS STAT 15 MINUTES APART. follow-up cultures to adjust antibiotics. DC iv ZITHROMAX. START iv zOSYN 3.375 EVERY 8 HOURLY 01/14/18. ADD iv VANCOMYCIN 1 G EVERY 24 HOURLY 01/14/18. PATIENT HAS HISTORY OF CHRONIC RENAL INSUFFICIENCY . PRESENT bun 41/CREATININE 2.0. MONITOR RENAL FUNCTIONS. fOLLOW-UP vANCO TROUGH PRIOR TO THE FOURTH DOSE AND KEEP BETWEEN 10 AND 20 MG/ DL. Status: Acute (2) UTI (urinary tract infection) due to urinary indwelling catheter Assessment and Plan: PATIENT HAS CHRONIC INDWELLING Cain CATHETER. EVALUATION PENDING. RECENT URINE CULTURE SHOWING cITROBACTER DIVERSUS/AND eNTEROCOCCUS FAECALIS ? COLONIZATION VS REAL. WE NEED TO CHANGE CATHETER /OR GIVE A TRIAL OFF CATHETER IF POSSIBLE. REPEAT ua URINE CULTURE WHEN CHANGING IF AGREEABLE TO . PATIENT HAS HISTORY OF TURP BY DR BELL. Status: Acute (3) Leukocytosis Assessment and Plan: wbc 14.1 ON ADMISSION. fOLLOW-UP cbc. Status: Acute (4) Weakness Status: Acute (5) Acute CVA (cerebrovascular accident) Assessment and Plan: PER NEURO. Status: Acute Priority: High (6) CAD (coronary artery disease) Status: Acute (7) Diabetes mellitus Status: Chronic (8) HTN (hypertension) Status: Chronic (9) Sleep apnea Status: Acute
[2018-01-14] MEDS: Dextrose 5%/0.45% NS 1,000 ML IV SCH (13:01)
--- NOTE | 2018-01-14 15:38 | CP.PCM.PN ---
<MomoLoisjose francisco E - Last Filed: 01/14/18 15:46> Subjective - Date & Time of Evaluation Date of Evaluation: 01/14/18 Time of Evaluation: 10:50 - Subjective Subjective: Cardiology progress note ( Dr. Acosta' service) Patient was seen and examined at bedside. Patient was sitting comfortably in a chair. Patient denies any acute issues. Patient denies chest pain, SOB, palpitations, dizziness, lightheadedness. Objective - Vital Signs/Intake and Output Vital Signs (last 24 hours): Temp Pulse Resp BP Pulse Ox 98.0 F 102 H 20 158/99 H 93 L 01/14/18 07:06 01/14/18 10:22 01/14/18 07:06 01/14/18 10:23 01/14/18 07:06 Intake and Output: 01/14/18 01/14/18 06:59 18:59 Output Total 850 Balance -850 - Medications Medications: Current Medications Apixaban (Eliquis) 2.5 mg PO BID [facility] Last Admin: 01/14/18 10:23 Dose: 2.5 mg Aspirin (Ecotrin) 81 mg PO DAILY [facility] Last Admin: 01/14/18 10:23 Dose: 81 mg Furosemide (Lasix) 40 mg IVP DAILY [facility] Last Admin: 01/14/18 10:23 Dose: 40 mg Glipizide (Glucotrol) 5 mg PO BID [facility] Last Admin: 01/14/18 10:23 Dose: 5 mg Dextrose/Sodium Chloride (Dextrose 5%/0.45% Ns 1000 Ml) 1,000 mls @ 60 mls/hr IV .[id number] [facility] Last Admin: 01/14/18 13:01 Dose: 60 mls/hr Piperacillin Sod/Tazobactam Sod (Zosyn 3.375 Gm Iv Premix) 3.375 gm in 50 mls @ 100 mls/hr IVPB Q8H [facility] PRN Reason: Protocol Vancomycin/Sodium Chloride (Vancomycin 1 Gm/Ns 200 Ml) 1 gm in 200 mls @ 133.333 mls/hr IVPB Q24H [facility] PRN Reason: Protocol Stop: 01/19/18 14:01 Insulin Human Regular (Novolin R) 0 unit SC ACHS [facility] PRN Reason: Protocol Last Admin: 01/14/18 12:59 Dose: 1 unit Lactulose (Enulose) 20 gm PO DAILY PRN PRN Reason: Constipation Last Admin: 01/13/18 03:57 Dose: 20 gm Losartan Potassium (Cozaar) 50 mg PO DAILY [facility] Last Admin: 01/14/18 10:23 Dose: 50 mg Metformin HCl (Glucophage) 500 mg PO BIDCC [facility] Last Admin: 01/14/18 08:33 Dose: 500 mg Pregabalin (Lyrica) 50 mg PO DAILY [facility] Last Admin: 01/14/18 10:22 Dose: 50 mg Rosuvastatin Calcium (Crestor) 5 mg PO HS [facility] Last Admin: 01/13/18 21:40 Dose: 5 mg - Labs Labs: 01/12/18 15:37 01/12/18 15:37 PT 12.6 SECONDS (9.7-12.2) H 01/12/18 15:37 INR 1.2 01/12/18 15:37 APTT 38 SECONDS (21-34) H 01/12/18 15:37 - Constitutional Appears: Well, No Acute Distress - Head Exam Head Exam: ATRAUMATIC, NORMAL INSPECTION - Eye Exam Eye Exam: EOMI - ENT Exam ENT Exam: Mucous Membranes Moist - Respiratory Exam Respiratory Exam: Rales, NORMAL BREATHING PATTERN. absent: Rhonchi, Wheezes Additional comments: Mild rales - Cardiovascular Exam Cardiovascular Exam: REGULAR RHYTHM - GI/Abdominal Exam GI & Abdominal Exam: Soft, Normal Bowel Sounds. absent: Guarding, Rigid, Tenderness - Extremities Exam Extremities Exam: absent: Calf Tenderness, Pedal Edema - Neurological Exam Neurological Exam: Alert, Awake, Oriented x3 - Psychiatric Exam Psychiatric exam: Flat Affect - Skin Skin Exam: Normal Color Assessment and Plan (1) Leukocytosis Assessment & Plan: UC: Citrobacter Diversus and enterococcus faecalis Zosyn 3.375gm IV q8h Vanco 1gm IV q24h Status: Acute (2) Pulmonary venous congestion Assessment & Plan: Chest X-ray: Moderate venous congestion. Right hilar prominence. Enlarged ectatic aorta. Cardiomegaly. Calcification at the aortic knob. BNP: 658, Within normal limits Medications: * Lasix 40mg IV daily Status: Acute (3) CAD (coronary artery disease) Assessment & Plan: s/p PCI with JOVANNY placement in mLAD (2017) ASA 81 mg PO daily Crestor 5mg PO HS Lipid Panel: TGL: 214 Chol: 182 LDL: 101 HDL: 30 HgbA1C: 8.5 Status: Acute (4) Diabetes mellitus Assessment & Plan: HgbA1C: 8.5 Metformin 500mg PO BID Glipizid 5mg PO BID Novolin R ( ISS- low dose) Status: Chronic (5) HTN (hypertension) Assessment & Plan: Cozaar 50mg PO daily Status: Chronic (6) Diabetic neuropathy Assessment & Plan: Lyrica 50mg PO daily No further cardiac work-up from cardiology prospective All plans and management discussed with Dr. Acosta Status: Acute <Juanito Acosta - Last Filed: 01/14/18 22:08> Objective - Vital Signs/Intake and Output Vital Signs (last 24 hours): Temp Pulse Resp BP Pulse Ox 97.4 F L 100 H 20 147/90 100 01/14/18 16:03 01/14/18 16:03 01/14/18 16:03 01/14/18 16:03 01/14/18 16:03 Intake and Output: 01/14/18 01/15/18 18:59 06:59 Intake Total 120 Output Total 1300 Balance -1180 - Medications Medications: Current Medications Apixaban (Eliquis) 2.5 mg PO BID [facility] Last Admin: 01/14/18 18:22 Dose: 2.5 mg Aspirin (Ecotrin) 81 mg PO DAILY [facility] Last Admin: 01/14/18 10:23 Dose: 81 mg Furosemide (Lasix) 40 mg IVP DAILY [facility] Last Admin: 01/14/18 10:23 Dose: 40 mg Glipizide (Glucotrol) 5 mg PO BID [facility] Last Admin: 01/14/18 18:23 Dose: 5 mg Dextrose/Sodium Chloride (Dextrose 5%/0.45% Ns 1000 Ml) 1,000 mls @ 60 mls/hr IV .[id number] [facility] Last Admin: 01/14/18 13:01 Dose: 60 mls/hr Piperacillin Sod/Tazobactam Sod (Zosyn 3.375 Gm Iv Premix) 3.375 gm in 50 mls @ 100 mls/hr IVPB Q8H [facility] PRN Reason: Protocol Last Admin: 01/14/18 16:20 Dose: 100 mls/hr Vancomycin/Sodium Chloride (Vancomycin 1 Gm/Ns 200 Ml) 1 gm in 200 mls @ 133.333 mls/hr IVPB Q24H [facility] PRN Reason: Protocol Stop: 01/19/18 14:01 Last Admin: 01/14/18 16:50 Dose: 133.333 mls/hr Insulin Human Regular (Novolin R) 0 unit SC ACHS [facility] PRN Reason: Protocol Last Admin: 01/14/18 18:23 Dose: 2 unit Lactulose (Enulose) 20 gm PO DAILY [facility] PRN Reason: Constipation Last Admin: 01/13/18 03:57 Dose: 20 gm Losartan Potassium (Cozaar) 50 mg PO DAILY [facility] Last Admin: 01/14/18 10:23 Dose: 50 mg Metformin HCl (Glucophage) 500 mg PO BIDCC [facility] Last Admin: 01/14/18 18:00 Dose: 500 mg Pregabalin (Lyrica) 50 mg PO DAILY [facility] Last Admin: 01/14/18 10:22 Dose: 50 mg Rosuvastatin Calcium (Crestor) 5 mg PO HS [facility] Last Admin: 01/13/18 21:40 Dose: 5 mg - Labs Labs: 01/14/18 16:47 01/14/18 16:47 PT 12.6 SECONDS (9.7-12.2) H 01/12/18 15:37 INR 1.2 01/12/18 15:37 APTT 38 SECONDS (21-34) H 01/12/18 15:37 Assessment and Plan - Assessment and Plan (Free Text) Assessment: Patient seen and evaluated personally by wi Plan of care d/w the resident and as documented
[2018-01-14] MEDS: Piperacill/Tazo 3.375gm in Dex 3.375 GM/50 ML BAG IVPB SCH ×2 (16:20→22:52)
[2018-01-14] MEDS: Vancomycin 1 gm/NS 200 ml 1 GM/200 ML BAG IVPB SCH (16:50)
[2018-01-14 16:54] LABS: HEMOGLOBIN 12.9 g/dL (12.0-18.0); MEAN CELL VOLUME 87.2 fL (80.0-94.0); MEAN CORPUSCULAR HEMOGLOBIN 28.8 pg (27.0-31.0); RBC 4.47 Mil/uL (4.40-5.90); WHITE BLOOD COUNT 11.4 K/uL (4.8-10.8)
[2018-01-14 16:55] LABS: BASO % 0.2 % (0.0-2.0); EOS # 0.4 K/uL (0.0-0.7); EOS % 3.4 % (0.0-4.0); LYMPH # 1.8 K/uL (1.0-4.3); MEAN CORPUSCULAR HGB CONC 33.1 g/dL (33.0-37.0); MEAN PLATELET VOLUME 8.7 fL (7.2-11.7); MONO # 0.9 K/uL (0.0-0.8); MONO % 8.3 % (0.0-10.0); NEUT # 8.2 K/uL (1.8-7.0); NEUT % 72.1 % (50.0-75.0); NRBC % 0.1 % (0.0-2.0); RED CELL DISTRIBUTION WIDTH 13.8 % (11.5-14.5)
[2018-01-14 17:09] LABS: CALCIUM 9.8 mg/dl (8.6-10.4)
--- NOTE | 2018-01-14 17:18 | CP.PCM.CON ---
History of Present Illness - History of Present Illness History of Present Illness: reason for consultation: obstructive sleep apnea 72-year-old male with history off coronary artery disease status post stent placement, CVA, diabetes, hyperlipidemia, hypertension who was admitted with change in mental status and generalized weakness. according to patient has snoring and choking sensation at night. PMHx: multi-focal CVA's, CAD s/p 1 stent, grade V atheroma of aortic arch, HLD, uncontrolled DM2, HTN, hx of TURP PSHx: 1 drug eluting cardiac stent 02/2017, hx of TURP x2 All: NKA Home Meds: pregabalin 50mg po qd, pravastatin 40mg po qd, losartan 50mg po qd, glipizide-metformin 5-500mg, furosemide 40mg po qd, plavix 75mg po qd, eliquis 2.5mg po bid FamHx: Mother with HTN SocialHx: Denies tobacco, alcohol, or illicits Review of Systems - Review of Systems All systems: reviewed and no additional remarkable complaints except (choking and snoring) Past Patient History - Infectious Disease Hx of Infectious Diseases: None - Past Medical History & Family History Past Medical History?: Yes - Past Social History Smoking Status: Never Smoked - CARDIAC Hx Cardiac Disorders: Yes (Coronary stent) Hx Hypercholesterolemia: Yes Hx Hypertension: Yes - NEUROLOGICAL HX Cerebrovascular Accident: Yes - HEENT Hx Cataracts: Yes (BILAT.) - ENDOCRINE/METABOLIC Hx Diabetes Mellitus Type 2: Yes - HEMATOLOGICAL/ONCOLOGICAL Hx Anemia: Yes - INTEGUMENTARY Hx Dermatological Problems: Yes - MUSCULOSKELETAL/RHEUMATOLOGICAL Hx Arthritis: Yes - GASTROINTESTINAL Hx Gastrointestinal Disorders: Yes - GENITOURINARY/GYNECOLOGICAL Hx Prostate Problems: Yes - PSYCHIATRIC Hx Substance Use: No - SURGICAL HISTORY Hx Coronary Stent: Yes (X1) - ANESTHESIA Hx Anesthesia: Yes Hx Anesthesia Reactions: No Hx Malignant Hyperthermia: No Meds Allergies/Adverse Reactions: Allergies Allergy/AdvReac Type Severity Reaction Status Date / Time No Known Allergies Allergy Verified 01/12/18 15:24 - Medications Medications: Current Medications Apixaban (Eliquis) 2.5 mg PO BID [facility] Last Admin: 01/14/18 10:23 Dose: 2.5 mg Aspirin (Ecotrin) 81 mg PO DAILY [facility] Last Admin: 01/14/18 10:23 Dose: 81 mg Furosemide (Lasix) 40 mg IVP DAILY [facility] Last Admin: 01/14/18 10:23 Dose: 40 mg Glipizide (Glucotrol) 5 mg PO BID [facility] Last Admin: 01/14/18 10:23 Dose: 5 mg Dextrose/Sodium Chloride (Dextrose 5%/0.45% Ns 1000 Ml) 1,000 mls @ 60 mls/hr IV .[id number] [facility] Last Admin: 01/14/18 13:01 Dose: 60 mls/hr Piperacillin Sod/Tazobactam Sod (Zosyn 3.375 Gm Iv Premix) 3.375 gm in 50 mls @ 100 mls/hr IVPB Q8H [facility] PRN Reason: Protocol Last Admin: 01/14/18 16:20 Dose: 100 mls/hr Vancomycin/Sodium Chloride (Vancomycin 1 Gm/Ns 200 Ml) 1 gm in 200 mls @ 133.333 mls/hr IVPB Q24H [facility] PRN Reason: Protocol Stop: 01/19/18 14:01 Last Admin: 01/14/18 16:50 Dose: 133.333 mls/hr Insulin Human Regular (Novolin R) 0 unit SC ACHS [facility] PRN Reason: Protocol Last Admin: 01/14/18 12:59 Dose: 1 unit Lactulose (Enulose) 20 gm PO DAILY [facility] PRN Reason: Constipation Last Admin: 01/13/18 03:57 Dose: 20 gm Losartan Potassium (Cozaar) 50 mg PO DAILY [facility] Last Admin: 01/14/18 10:23 Dose: 50 mg Metformin HCl (Glucophage) 500 mg PO BIDCC [facility] Last Admin: 01/14/18 08:33 Dose: 500 mg Pregabalin (Lyrica) 50 mg PO DAILY [facility] Last Admin: 01/14/18 10:22 Dose: 50 mg Rosuvastatin Calcium (Crestor) 5 mg PO HS [facility] Last Admin: 01/13/18 21:40 Dose: 5 mg Physical Exam - Head Exam Head Exam: ATRAUMATIC, NORMOCEPHALIC - ENT Exam ENT Exam: Mucous Membranes Moist - Respiratory Exam Respiratory Exam: Clear to Auscultation Bilateral - Cardiovascular Exam Cardiovascular Exam: REGULAR RHYTHM - GI/Abdominal Exam GI & Abdominal Exam: Normal Bowel Sounds, Soft Results - Vital Signs Recent Vital Signs: Last Vital Signs Temp 97.4 F L 01/14/18 16:03 Pulse 100 H 01/14/18 16:03 Resp 20 01/14/18 16:03 BP 147/90 01/14/18 16:03 Pulse Ox 100 01/14/18 16:03 - Labs Result Diagrams: 01/14/18 16:47 01/12/18 15:37 Labs: Laboratory Results - last 24 hr 01/13/18 01/14/18 01/14/18 20:57 06:56 06:59 WBC RBC Hgb Hct MCV MCH MCHC RDW Plt Count MPV Neut % (Auto) Lymph % (Auto) [place] % (Auto) Eos % (Auto) Baso % (Auto) Neut # (Auto) Lymph # (Auto) [place] # (Auto) Eos # (Auto) Baso # (Auto) POC Glucose (mg/dL) 169 H Hemoglobin A1c 8.5 H Iron 47 L Total Creatine Kinase CK-MB (Mass) Troponin I NT-Pro-B Natriuret Pep Triglycerides Cholesterol LDL Cholesterol Direct HDL Cholesterol Vitamin B12 Folate 01/14/18 01/14/18 01/14/18 07:00 07:01 11:46 WBC RBC Hgb Hct MCV MCH MCHC RDW Plt Count MPV Neut % (Auto) Lymph % (Auto) [place] % (Auto) Eos % (Auto) Baso % (Auto) Neut # (Auto) Lymph # (Auto) [place] # (Auto) Eos # (Auto) Baso # (Auto) POC Glucose (mg/dL) 203 H 253 H Hemoglobin A1c Iron Total Creatine Kinase 274 H CK-MB (Mass) 1.13 Troponin I 0.0200 NT-Pro-B Natriuret Pep 658 Triglycerides 214 H D Cholesterol 182 LDL Cholesterol Direct 101 HDL Cholesterol 30 Vitamin B12 860 Folate > 20.0 01/14/18 01/14/18 16:30 16:47 WBC 11.4 H RBC 4.47 Hgb 12.9 Hct 38.9 MCV 87.2 MCH 28.8 MCHC 33.1 RDW 13.8 Plt Count 318 MPV 8.7 Neut % (Auto) 72.1 Lymph % (Auto) 16.0 L [place] % (Auto) 8.3 Eos % (Auto) 3.4 Baso % (Auto) 0.2 Neut # (Auto) 8.2 H Lymph # (Auto) 1.8 [place] # (Auto) 0.9 H Eos # (Auto) 0.4 Baso # (Auto) 0.0 POC Glucose (mg/dL) 241 H Hemoglobin A1c Iron Total Creatine Kinase CK-MB (Mass) Troponin I NT-Pro-B Natriuret Pep Triglycerides Cholesterol LDL Cholesterol Direct HDL Cholesterol Vitamin B12 Folate Assessment & Plan (1) Sleep apnea Status: Acute Comment: patient will need sleep study. CPAP of 10 cm at night
[2018-01-14 22:25] LABS: URINE BILIRUBIN NEGATIVE (NEGATIVE); URINE BLOOD 1+ (NEGATIVE); URINE CLARITY Clear (Clear); URINE COLOR Yellow (YELLOW); URINE GLUCOSE (UA) 2+ mg/dL (Normal); URINE LEUKOCYTE ESTERASE 1+ Leu/uL (Negative); URINE PROTEIN 3+ mg/dL (NEGATIVE); URINE UROBILINOGEN NORMAL mg/dL (0.2-1.0)
--- NOTE | 2018-01-15 04:17 | PN ---
DATE: 01/14/2018 SUBJECTIVE: The patient was seen and examined at the bedside on 01/14/2018. was sitting on the bedside also. The patient was sitting on the chair. No fever or chills. No nausea, vomiting, or diarrhea. Awake, alert, oriented x3 today. PHYSICAL EXAMINATION: VITAL SIGNS: Temperature 98.3, pulse 83, respiratory rate 20, blood pressure 174/77, pulse oximetry 95. HEENT: Head normocephalic, atraumatic. Eyes PERRLA. Extraocular muscles are intact. Conjunctivae clear. Nose patent. Mucous membranes moist. NECK: Supple. No carotid bruits, JVD, or thyromegaly. CHEST: Bilaterally symmetrical. HEART: S1, S2 positive. LUNGS: Clear to auscultation. ABDOMEN: Soft. Bowel sounds present. No organomegaly. EXTREMITIES: No edema. No cyanosis. NEUROLOGIC: The patient is awake, alert. Follows simple commands. LABORATORY DATA: White blood cells 14.1, hemoglobin 11.3, hematocrit 33.6, platelets 336. Sodium 142, potassium 5.3, BUN 41, creatinine 2, and glucose 134. ASSESSMENT AND PLAN: Mr. Alber Vicente is a 72-year-old male with leukocytosis, anemia, hyperkalemia, renal insufficiency, hyperglycemia with past medical history of multifocal cerebrovascular accident, coronary artery disease, status post one stent, grade 4 atheroma of aortic arch, hypercholesterolemia, uncontrolled diabetes mellitus, hypertension, history of transurethral resection of prostate who came with altered mental status and generalized weakness, urinary tract infection, getting antibiotics. CT of the head done, no acute intracranial abnormalities. Evaluated by a neurologist. The patient had transesophageal echocardiography in 02/2017 that showed high-grade aortic atheroma which could be the possibly source of multifocal cerebrovascular accident. Seen by apprentice plant attendant, Dr. Ramirez Hicks, and impregnator and drier helper, Dr. Juanito Acosta. Urinary tract infection with Citrobacter diversus and Enterobacter faecalis, starting Zosyn and vancomycin. Pulmonary venous congestion, right hilar prominence, enlarged ectatic aorta, cardiomegaly. Continue Lasix. Coronary artery disease, continue Crestor. Hypertension and diabetic neuropathy, continue Lyrica. Gastrointestinal and deep venous thrombosis prophylaxis. Discussion done with . Continue present treatment. Zuleima Jackson MD
[2018-01-15] MEDS: Dextrose 5%/0.45% NS 1,000 ML IV SCH ×2 (05:34→22:48)
[2018-01-15] MEDS: Piperacill/Tazo 3.375gm in Dex 3.375 GM/50 ML BAG IVPB SCH ×3 (05:34→22:46)
[2018-01-15 07:45] LABS: BASO % 0.3 % (0.0-2.0); EOS # 0.6 K/uL (0.0-0.7); EOS % 6.2 % (0.0-4.0); HEMOGLOBIN 11.7 g/dL (12.0-18.0); LYMPH # 1.8 K/uL (1.0-4.3); LYMPH % 18.4 % (20.0-40.0); MEAN CELL VOLUME 87.2 fL (80.0-94.0); MEAN CORPUSCULAR HEMOGLOBIN 30.1 pg (27.0-31.0); MEAN CORPUSCULAR HGB CONC 34.5 g/dL (33.0-37.0); MEAN PLATELET VOLUME 8.7 fL (7.2-11.7); MONO % 10.5 % (0.0-10.0); NEUT # 6.3 K/uL (1.8-7.0); NEUT % 64.6 % (50.0-75.0); RBC 3.89 Mil/uL (4.40-5.90); RED CELL DISTRIBUTION WIDTH 13.4 % (11.5-14.5); WHITE BLOOD COUNT 9.7 K/uL (4.8-10.8)
[2018-01-15 07:59] LABS: ALB/GLOB RATIO 0.9 (1.0-2.1); ALBUMIN 3.5 g/dL (3.5-5.0); BILIRUBIN,DIRECT 0.4 mg/dL (0.0-0.4); CALCIUM 9.2 mg/dl (8.6-10.4)
[2018-01-15] MEDS: (Novolin R) Insulin Human Regular 100 units/ml vial SC SCH ×4 (08:22→22:49)
--- NOTE | 2018-01-15 13:07 | CP.PCM.PN ---
<Marni Barr E - Last Filed: 01/15/18 14:05> Subjective - Date & Time of Evaluation Date of Evaluation: 01/15/18 Time of Evaluation: 07:40 - Subjective Subjective: Cardiology progress note ( Dr. Acosta's service) Patient was seen and examined at bedside. Patient was resting in bed comfortably. Patient denies any cardiac complaints such as chest pain, SOB, palpitations, dizziness and lightheadedness. Objective - Vital Signs/Intake and Output Vital Signs (last 24 hours): Temp Pulse Resp BP Pulse Ox 97.9 F 96 H 20 135/79 96 01/15/18 08:12 01/15/18 08:44 01/15/18 08:12 01/15/18 09:30 01/15/18 08:12 Intake and Output: 01/15/18 01/15/18 06:59 18:59 Output Total 550 Balance -550 - Medications Medications: Current Medications Apixaban (Eliquis) 2.5 mg PO BID [facility] Last Admin: 01/15/18 09:31 Dose: 2.5 mg Aspirin (Ecotrin) 81 mg PO DAILY [facility] Last Admin: 01/15/18 09:30 Dose: 81 mg Furosemide (Lasix) 40 mg IVP DAILY [facility] Last Admin: 01/15/18 09:30 Dose: 40 mg Glipizide (Glucotrol) 5 mg PO BID [facility] Last Admin: 01/15/18 09:31 Dose: 5 mg Dextrose/Sodium Chloride (Dextrose 5%/0.45% Ns 1000 Ml) 1,000 mls @ 60 mls/hr IV .[id number] [facility] Last Admin: 01/15/18 05:34 Dose: Not Given Piperacillin Sod/Tazobactam Sod (Zosyn 3.375 Gm Iv Premix) 3.375 gm in 50 mls @ 100 mls/hr IVPB Q8H [facility] PRN Reason: Protocol Last Admin: 01/15/18 05:34 Dose: 100 mls/hr Vancomycin/Sodium Chloride (Vancomycin 1 Gm/Ns 200 Ml) 1 gm in 200 mls @ 133.333 mls/hr IVPB Q24H [facility] PRN Reason: Protocol Stop: 01/19/18 14:01 Last Admin: 01/14/18 16:50 Dose: 133.333 mls/hr Insulin Human Regular (Novolin R) 0 unit SC ACHS [facility] PRN Reason: Protocol Last Admin: 01/15/18 12:45 Dose: 4 unit Lactulose (Enulose) 20 gm PO DAILY PRN PRN Reason: Constipation Last Admin: 01/13/18 03:57 Dose: 20 gm Losartan Potassium (Cozaar) 50 mg PO DAILY [facility] Last Admin: 01/15/18 09:30 Dose: 50 mg Metformin HCl (Glucophage) 500 mg PO BIDCC [facility] Last Admin: 01/15/18 08:22 Dose: 500 mg Pregabalin (Lyrica) 50 mg PO DAILY [facility] Last Admin: 01/15/18 09:32 Dose: 50 mg Rosuvastatin Calcium (Crestor) 5 mg PO HS [facility] Last Admin: 01/14/18 22:52 Dose: 5 mg - Labs Labs: 01/15/18 07:25 01/15/18 07:25 PT 12.6 SECONDS (9.7-12.2) H 01/12/18 15:37 INR 1.2 01/12/18 15:37 APTT 38 SECONDS (21-34) H 01/12/18 15:37 - Constitutional Appears: Well, No Acute Distress - Head Exam Head Exam: ATRAUMATIC, NORMAL INSPECTION - Eye Exam Eye Exam: EOMI, Normal appearance - ENT Exam ENT Exam: Mucous Membranes Moist - Respiratory Exam Respiratory Exam: Clear to Ausculation Bilateral, NORMAL BREATHING PATTERN. absent: Chest Wall Tenderness, Decreased Breath Sounds, Prolonged Expiratory Phase, Rales, Respiratory Distress - Cardiovascular Exam Cardiovascular Exam: REGULAR RHYTHM, +S1, +S2 - GI/Abdominal Exam GI & Abdominal Exam: Soft, Normal Bowel Sounds. absent: Distended, Firm, Guarding, Rigid, Tenderness - Extremities Exam Extremities Exam: Normal Inspection. absent: Calf Tenderness, Pedal Edema, Tenderness - Neurological Exam Neurological Exam: Alert, Awake, Oriented x3 - Psychiatric Exam Psychiatric exam: Normal Affect - Skin Skin Exam: Normal Color Assessment and Plan (1) Pulmonary venous congestion Assessment & Plan: Chest X-ray: Moderate venous congestion. Right hilar prominence. Enlarged ectatic aorta. Cardiomegaly. Calcification at the aortic knob. Echocardiogram ( 02/09/17): LV function is normal. EJ normal range. EF ( 60-65%) BNP: 658, Within normal limits Medications: * Lasix 40mg IV daily Status: Acute (2) CAD (coronary artery disease) Assessment & Plan: s/p PCI with JOVANNY placement in mLAD (2017) ASA 81 mg PO daily Eliquis 2.5mg PO BID Crestor 5mg PO HS Lipid Panel: TGL: 214 Chol: 182 LDL: 101 HDL: 30 HgbA1C: 8.5 Status: Acute (3) Leukocytosis Assessment & Plan: Down trending UC: Citrobacter Diversus and enterococcus faecalis BC: Negative Medications: Zosyn 3.375gm IV q8h Vanco 1gm IV q24h Status: Acute (4) Diabetes mellitus Assessment & Plan: HgbA1c: 8.5 Metformin 500mg PO BID Glipizid 5mg PO BID Novolin R ( ISS- low dose) Accuchecks Status: Chronic (5) HTN (hypertension) Assessment & Plan: Cozaar 50mg PO daily Status: Chronic (6) Diabetic neuropathy Assessment & Plan: Lyrica 50 mg PO daily Status: Acute (7) Prophylactic measure Assessment & Plan: DVT: Eliquis 2.5mg PO BID No further cardiac work-up Please reconsult as necessary Thank you for the opportunity to participate in your care All plans and management discussed with Dr. Acosta Status: Acute <Juanito Acosta - Last Filed: 01/15/18 22:25> Objective - Vital Signs/Intake and Output Vital Signs (last 24 hours): Temp Pulse Resp BP Pulse Ox 97.5 F L 86 20 114/71 96 01/15/18 15:00 01/15/18 16:00 01/15/18 15:00 01/15/18 15:00 01/15/18 15:00 Intake and Output: 01/15/18 01/16/18 18:59 06:59 Output Total 450 Balance -450 - Medications Medications: Current Medications Apixaban (Eliquis) 2.5 mg PO BID [facility] Last Admin: 01/15/18 18:42 Dose: 2.5 mg Aspirin (Ecotrin) 81 mg PO DAILY [facility] Last Admin: 01/15/18 09:30 Dose: 81 mg Furosemide (Lasix) 40 mg IVP DAILY [facility] Last Admin: 01/15/18 09:30 Dose: 40 mg Glipizide (Glucotrol) 5 mg PO BID [facility] Last Admin: 01/15/18 18:41 Dose: 5 mg Dextrose/Sodium Chloride (Dextrose 5%/0.45% Ns 1000 Ml) 1,000 mls @ 60 mls/hr IV .[id number] [facility] Last Admin: 01/15/18 05:34 Dose: Not Given Piperacillin Sod/Tazobactam Sod (Zosyn 3.375 Gm Iv Premix) 3.375 gm in 50 mls @ 100 mls/hr IVPB Q8H [facility] PRN Reason: Protocol Last Admin: 01/15/18 13:34 Dose: 100 mls/hr Vancomycin/Sodium Chloride (Vancomycin 1 Gm/Ns 200 Ml) 1 gm in 200 mls @ 133.333 mls/hr IVPB Q24H [facility] PRN Reason: Protocol Stop: 01/19/18 14:01 Last Admin: 01/15/18 14:47 Dose: 133.333 mls/hr Insulin Human Regular (Novolin R) 0 unit SC ACHS [facility] PRN Reason: Protocol Last Admin: 01/15/18 12:45 Dose: 4 unit Lactulose (Enulose) 20 gm PO DAILY PRN PRN Reason: Constipation Last Admin: 01/15/18 18:40 Dose: 20 gm Losartan Potassium (Cozaar) 50 mg PO DAILY [facility] Last Admin: 01/15/18 09:30 Dose: 50 mg Metformin HCl (Glucophage) 500 mg PO BIDCC [facility] Last Admin: 01/15/18 18:41 Dose: 500 mg Pregabalin (Lyrica) 50 mg PO DAILY [facility] Last Admin: 01/15/18 09:32 Dose: 50 mg Rosuvastatin Calcium (Crestor) 5 mg PO HS [facility] Last Admin: 01/14/18 22:52 Dose: 5 mg - Labs Labs: 01/15/18 07:25 01/15/18 07:25 PT 12.6 SECONDS (9.7-12.2) H 01/12/18 15:37 INR 1.2 01/12/18 15:37 APTT 38 SECONDS (21-34) H 01/12/18 15:37 Assessment and Plan - Assessment and Plan (Free Text) Assessment: Patient seen and evaluated personally by il Plan of care d/w the medical sociologist and as documented
--- NOTE | 2018-01-15 14:17 | MRI ---
Date of service: 01/15/2018 PROCEDURE: MRI BRAIN WITHOUT CONTRAST HISTORY: high risk for stroke; hx of multiple strokes COMPARISON: Comparison made with prior CT scan brain 01/12/2018 TECHNIQUE: Multiplanar, multisequence MR images of the brain were obtained without intravenous contrast enhancement. FINDINGS: HEMORRHAGE: No acute parenchymal, subarachnoid or extra-axial hemorrhage. No hemosiderin deposition is identified on gradient echo weighted sequence. DWI: No evidence of an acute or early subacute infarction seen on diffusion imaging. . BRAIN PARENCHYMA: Mild moderate chronic periventricular white matter ischemic changes seen extending peripherally into the deep and subcortical white matter both cerebral hemispheres. In addition, there are a more discrete chronic appearing infarcts scattered about the deep and subcortical white matter as well as both basal nuclei. . Chronic cortical infarct right posterior temporoparietal watershed zone and left cerebellum. There are also a few chronic appearing brainstem ischemic changes. No obvious parenchymal nor extra-axial mass or collection appreciated on this noncontrast study. Significant generalized volume loss. Vascular calcifications carotid siphons and vertebral arteries. VENTRICLES: No obstructive hydrocephalus. CRANIUM: Unremarkable. ORBITS: Changes of bilateral cataract surgery. PARANASAL SINUSES/MASTOIDS: Minimal mucosal thickening seen with ethmoid air cells. Frontal sinuses remain hypoplastic VASCULAR SYSTEM: Visualized major vascular flow voids at skull base patent. OTHER FINDINGS: None. IMPRESSION: No acute intracranial hemorrhage. Chronic white matter, basal nuclei, brainstem with left cerebellar ischemic changes. Moderate to significant generalized volume loss. Significant volume loss.
--- NOTE | 2018-01-15 14:28 | CP.PCM.PN ---
Subjective - Date & Time of Evaluation Date of Evaluation: 01/15/18 Time of Evaluation: 14:28 - Subjective Subjective: CHIEF COMPLAINTS TODAY : AFEBRILE, NO NEW COMPLAINTS S/P FOLY CHANGED 01/14/18 ROS. HEENT : N. Resp : No cough, wheezing ,pleuritic CP ,or hemoptysis Cardio : No anginal CP, PND, orthopnea, palpitation GI : No abd.pain, n/v ,diarrhea or GI bleeding . EDGE PLUGGER : No headache, vertigo, focal deficit. Musculoskel : No joint swelling , Derm : No rash Psych : Normal affect. Ext : No swelling ,calf pain PE. Pt. is alert awake in no distress. V.S As noted in the chart Head ,ear nose,throat and eyes : Normal. Neck : Supple with normal carotids. Lungs: Clear air entry. Heart : S1 & S2 normal with S4. No murmur. Abd : Soft non tender with normal bowel sounds. Neuro : Moves all ext. with no localized deficit. Ext : No edema with intact pulses.Non tender calves Derm : No rashes or decubitus ulcer. LABS/RADIOLOGY: WBC 9.7 improving Creatinine 2.0/BUN 36. BLOOD CULTURE 1:2 SETS +VE SCN ? CONTAMINANT. URINE CULTURE +VE CITROBACTER/ ENTEROCOCCUS -FAECALIS ASSESSMENT/PLAN : f/u repeat blood cultures and urine cultures. Continue IV Zosyn 3.375 every 8 hourly. Continue IV vancomycin 1 g every 24 hourly. f/u Vanco trough level in a.m. As per . neuro workup in progress. Objective - Vital Signs/Intake and Output Vital Signs (last 24 hours): Temp Pulse Resp BP Pulse Ox 97.9 F 96 H 20 135/79 96 01/15/18 08:12 01/15/18 08:44 01/15/18 08:12 01/15/18 09:30 01/15/18 08:12 Intake and Output: 01/15/18 01/15/18 06:59 18:59 Output Total 550 Balance -550 - Medications Medications: Current Medications Apixaban (Eliquis) 2.5 mg PO BID [facility] Last Admin: 01/15/18 09:31 Dose: 2.5 mg Aspirin (Ecotrin) 81 mg PO DAILY [facility] Last Admin: 01/15/18 09:30 Dose: 81 mg Furosemide (Lasix) 40 mg IVP DAILY [facility] Last Admin: 01/15/18 09:30 Dose: 40 mg Glipizide (Glucotrol) 5 mg PO BID [facility] Last Admin: 01/15/18 09:31 Dose: 5 mg Dextrose/Sodium Chloride (Dextrose 5%/0.45% Ns 1000 Ml) 1,000 mls @ 60 mls/hr IV .[id number] [facility] Last Admin: 01/15/18 05:34 Dose: Not Given Piperacillin Sod/Tazobactam Sod (Zosyn 3.375 Gm Iv Premix) 3.375 gm in 50 mls @ 100 mls/hr IVPB Q8H [facility] PRN Reason: Protocol Last Admin: 01/15/18 13:34 Dose: 100 mls/hr Vancomycin/Sodium Chloride (Vancomycin 1 Gm/Ns 200 Ml) 1 gm in 200 mls @ 133.333 mls/hr IVPB Q24H [facility] PRN Reason: Protocol Stop: 01/19/18 14:01 Last Admin: 01/14/18 16:50 Dose: 133.333 mls/hr Insulin Human Regular (Novolin R) 0 unit SC ACHS [facility] PRN Reason: Protocol Last Admin: 01/15/18 12:45 Dose: 4 unit Lactulose (Enulose) 20 gm PO DAILY PRN PRN Reason: Constipation Last Admin: 01/13/18 03:57 Dose: 20 gm Losartan Potassium (Cozaar) 50 mg PO DAILY [facility] Last Admin: 01/15/18 09:30 Dose: 50 mg Metformin HCl (Glucophage) 500 mg PO BIDCC [facility] Last Admin: 01/15/18 08:22 Dose: 500 mg Pregabalin (Lyrica) 50 mg PO DAILY [facility] Last Admin: 01/15/18 09:32 Dose: 50 mg Rosuvastatin Calcium (Crestor) 5 mg PO HS [facility] Last Admin: 01/14/18 22:52 Dose: 5 mg - Labs Labs: 01/15/18 07:25 01/15/18 07:25 PT 12.6 SECONDS (9.7-12.2) H 01/12/18 15:37 INR 1.2 01/12/18 15:37 APTT 38 SECONDS (21-34) H 01/12/18 15:37 Assessment and Plan (1) Gram-positive bacteremia Status: Acute (2) UTI (urinary tract infection) due to urinary indwelling catheter Status: Acute (3) Leukocytosis Status: Acute (4) Weakness Status: Acute (5) Acute CVA (cerebrovascular accident) Status: Acute (6) CAD (coronary artery disease) Status: Acute (7) Diabetes mellitus Status: Chronic (8) HTN (hypertension) Status: Chronic (9) Sleep apnea Status: Acute
[2018-01-15] MEDS: Vancomycin 1 gm/NS 200 ml 1 GM/200 ML BAG IVPB SCH (14:47)
--- NOTE | 2018-01-16 03:23 | PN ---
DATE: 01/15/2018 SUBJECTIVE: This is a 72-year-old male. The patient was seen and examined on 01/15/2018. Looking comfortable. Sitting on his bed. No fever. No chills. No chest pain. No shortness of breath. No palpitation. No headache or dizziness. No hematuria or hematochezia. PHYSICAL EXAMINATION: VITAL SIGNS: Temperature 97.9, pulse 96, respiratory rate 20, blood pressure 135/79, pulse oximetry 97. HEENT: Head normocephalic, atraumatic. Eyes PERRLA. Extraocular muscles are intact. Conjunctivae clear. Nose patent. NECK: Supple. No carotid bruits, JVD, or thyromegaly. CHEST: Bilaterally symmetrical. HEART: S1, S2 positive. LUNGS: Clear to auscultation. ABDOMEN: Soft. Bowel sounds present. No organomegaly. EXTREMITIES: No edema. No cyanosis. NEUROLOGIC: The patient is awake, alert. Moving all four extremities. No focal deficits. MEDICATIONS: Eliquis, aspirin, Lasix, Glucotrol, Zosyn, vancomycin, insulin, Cozaar, metformin, Lyrica, Crestor. LABORATORY DATA: White blood cells 9.7, hemoglobin 11.7, hematocrit 33.9, platelets 386. Sodium 140, potassium 4.5, BUN 36, creatinine 2, and glucose 222. ASSESSMENT AND PLAN: Mr. Jules Campo is a 72-year-old male with renal insufficiency, hyperglycemia. Has pulmonary venous congestion. Has right hilar prominence, enlarged ectatic aorta, cardiomegaly, calcification at aortic arch. Echocardiography done. Basic metabolic panel within normal limit. Continue Lasix. Coronary artery disease. Continue aspirin, Eliquis and Crestor for hypercholesterolemia. Uncontrolled diabetes mellitus. Hemoglobin A1c is 8.5. Leukocytosis is trending down. Citrobacter diversus and Enterococcus faecalis in the urine. Continue Zosyn and vancomycin. Diabetes mellitus. Hypertension. For diabetic neuropathy, prophylaxis treatment given and Eliquis to prevent deep venous thrombosis. Gastrointestinal and deep venous thrombosis prophylaxis. Repeat labs. We will follow up. Zuleima Jackson MD [facility] # [id number] MTDD
[2018-01-16] MEDS: Piperacill/Tazo 3.375gm in Dex 3.375 GM/50 ML BAG IVPB SCH ×3 (06:07→21:49)
[2018-01-16] MEDS: (Novolin R) Insulin Human Regular 100 units/ml vial SC SCH ×4 (08:35→21:43)
--- NOTE | 2018-01-16 08:42 | PCM.URO ---
Urology Progress Note - Objective Lab Studies: Reviewed (no gu changes for now we can discuss further plans thanks for gu consult) Lab Results Last 24 Hours: Laboratory Results - last 24 hr 01/15/18 01/15/18 01/15/18 12:35 16:44 21:08 POC Glucose (mg/dL) 327 H 273 H 222 H 01/16/18 06:22 POC Glucose (mg/dL) 247 H Intake & Output: Intake & Output 01/15/18 01/16/18 01/16/18 18:59 06:59 18:59 Output Total 750 Balance -750 Output: Urine 750 Urethral (Carr) 750 Stool 0 Vital Signs: Vital Signs - 24 hr 01/15/18 01/15/18 01/15/18 08:44 09:30 12:00 Temperature Pulse Rate 96 H 87 Respiratory Rate Blood Pressure 135/79 O2 Sat by Pulse Oximetry 01/15/18 01/15/18 01/15/18 15:00 16:00 23:10 Temperature 97.5 F L 98.4 F Pulse Rate 89 86 82 Respiratory 20 20 Rate Blood Pressure 114/71 125/69 O2 Sat by Pulse 96 97 Oximetry 01/16/18 01/16/18 01:00 08:00 Temperature 97.6 F Pulse Rate 75 80 Respiratory 20 Rate Blood Pressure 133/75 O2 Sat by Pulse 98 Oximetry
--- NOTE | 2018-01-16 12:18 | CP.PCM.PN ---
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 Objective - Vital Signs/Intake and Output Vital Signs (last 24 hours): Temp Pulse Resp BP Pulse Ox 97.6 F 81 20 136/78 98 01/16/18 08:00 01/16/18 09:09 01/16/18 08:00 01/16/18 09:58 01/16/18 08:00 Intake and Output: 01/16/18 01/16/18 06:59 18:59 Output Total 750 Balance -750 - Medications Medications: Current Medications Apixaban (Eliquis) 2.5 mg PO BID [facility] Last Admin: 01/16/18 09:57 Dose: 2.5 mg Aspirin (Ecotrin) 81 mg PO DAILY [facility] Last Admin: 01/16/18 09:57 Dose: 81 mg Furosemide (Lasix) 40 mg IVP DAILY [facility] Last Admin: 01/16/18 09:58 Dose: 40 mg Glipizide (Glucotrol) 5 mg PO BID [facility] Last Admin: 01/16/18 09:57 Dose: 5 mg Dextrose/Sodium Chloride (Dextrose 5%/0.45% Ns 1000 Ml) 1,000 mls @ 60 mls/hr IV .[id number] [facility] Last Admin: 01/15/18 22:48 Dose: 60 mls/hr Piperacillin Sod/Tazobactam Sod (Zosyn 3.375 Gm Iv Premix) 3.375 gm in 50 mls @ 100 mls/hr IVPB Q8H [facility] PRN Reason: Protocol Last Admin: 01/16/18 06:07 Dose: 100 mls/hr Vancomycin/Sodium Chloride (Vancomycin 1 Gm/Ns 200 Ml) 1 gm in 200 mls @ 133.333 mls/hr IVPB Q24H [facility] PRN Reason: Protocol Stop: 01/19/18 14:01 Last Admin: 01/15/18 14:47 Dose: 133.333 mls/hr Insulin Human Regular (Novolin R) 0 unit SC ACHS [facility] PRN Reason: Protocol Last Admin: 01/16/18 08:35 Dose: 2 unit Lactulose (Enulose) 20 gm PO DAILY PRN PRN Reason: Constipation Last Admin: 01/16/18 03:48 Dose: 20 gm Losartan Potassium (Cozaar) 50 mg PO DAILY [facility] Last Admin: 01/16/18 09:57 Dose: 50 mg Metformin HCl (Glucophage) 500 mg PO BIDCC [facility] Last Admin: 01/16/18 08:38 Dose: 500 mg Pregabalin (Lyrica) 50 mg PO DAILY [facility] Last Admin: 01/16/18 09:57 Dose: 50 mg Rosuvastatin Calcium (Crestor) 5 mg PO HS [facility] Last Admin: 01/15/18 22:46 Dose: 5 mg - Labs Labs: 01/15/18 07:25 01/15/18 07:25 PT 12.6 SECONDS (9.7-12.2) H 01/12/18 15:37 INR 1.2 01/12/18 15:37 APTT 38 SECONDS (21-34) H 01/12/18 15:37
--- NOTE | 2018-01-16 12:32 | CP.PCM.CON ---
<Rehana Ambriz - Last Filed: 01/16/18 16:53> History of Present Illness - History of Present Illness History of Present Illness: Gastroenterology Fellow/PGY6 Consult Note 72 year old male with PMH of Prostate Cancer s/p TURP 2015, CVA, CAD s/p PCI 2016, DM w/ neuropathy, PAD complicated by right hallux osteomyelitis with partial amputation (02/2017), HTN, HLD, and constipation presenting with weakness. Patient noted progressive fatigue leading to lack of strength to ambulate with walker on day of admission. Currently, notes improving strength since receiving antibiotics for UTI. Patient notes chronic bilateral lower abdominal pain and incomplete evacuation of 1-2 small, hard bowel movements every two days despite Lactulose twice a day. He notes the pain only partially improves with bowel evacuation to pain scale 5/10. Associated bloating. Denies nausea, vomiting, hematemesis, heartburn, acid reflux, diarrhea, melena, hematochezia, or unintentional weight loss. He notes issues with constipation for over 10 years and has tried multiple OTC laxatives without improvement. Prior colonoscopy four years ago endorsed to be normal. No prior EGD. Family History- denies stomach cancer, colon cancer Social History- denies tobacco, alcohol, illicit drug use Surgical History- PCI 2017, right femoral artery catheterization and atherectomy right peroneal artery with angioplasty, right hallux partial amputation Review of Systems - Review of Systems Review of Systems: 12-point review of systems negative except for as above Past Patient History - Infectious Disease Hx of Infectious Diseases: None - Past Medical History & Family History Past Medical History?: Yes - Past Social History Smoking Status: Never Smoked - CARDIAC Hx Hypercholesterolemia: Yes Hx Hypertension: Yes - NEUROLOGICAL HX Cerebrovascular Accident: Yes - HEENT Hx Cataracts: Yes (BILAT.) - ENDOCRINE/METABOLIC Hx Endocrine Disorders: Yes Hx Diabetes Mellitus Type 2: Yes - HEMATOLOGICAL/ONCOLOGICAL Hx Anemia: Yes - INTEGUMENTARY Hx Dermatological Problems: Yes - MUSCULOSKELETAL/RHEUMATOLOGICAL Hx Arthritis: Yes - GASTROINTESTINAL Hx Gastrointestinal Disorders: Yes - GENITOURINARY/GYNECOLOGICAL Hx Prostate Problems: Yes - PSYCHIATRIC Hx Substance Use: No - SURGICAL HISTORY Hx Coronary Stent: Yes (X1) - ANESTHESIA Hx Anesthesia: Yes Hx Anesthesia Reactions: No Hx Malignant Hyperthermia: No Meds Allergies/Adverse Reactions: Allergies Allergy/AdvReac Type Severity Reaction Status Date / Time No Known Allergies Allergy Verified 01/12/18 15:24 - Medications Medications: Current Medications Apixaban (Eliquis) 2.5 mg PO BID [facility] Last Admin: 01/16/18 09:57 Dose: 2.5 mg Aspirin (Ecotrin) 81 mg PO DAILY [facility] Last Admin: 01/16/18 09:57 Dose: 81 mg Furosemide (Lasix) 40 mg IVP DAILY [facility] Last Admin: 01/16/18 09:58 Dose: 40 mg Glipizide (Glucotrol) 5 mg PO BID [facility] Last Admin: 01/16/18 09:57 Dose: 5 mg Dextrose/Sodium Chloride (Dextrose 5%/0.45% Ns 1000 Ml) 1,000 mls @ 60 mls/hr IV .[id number] [facility] Last Admin: 01/15/18 22:48 Dose: 60 mls/hr Piperacillin Sod/Tazobactam Sod (Zosyn 3.375 Gm Iv Premix) 3.375 gm in 50 mls @ 100 mls/hr IVPB Q8H [facility] PRN Reason: Protocol Last Admin: 01/16/18 06:07 Dose: 100 mls/hr Vancomycin/Sodium Chloride (Vancomycin 1 Gm/Ns 200 Ml) 1 gm in 200 mls @ 133.333 mls/hr IVPB Q24H [facility] PRN Reason: Protocol Stop: 01/19/18 14:01 Last Admin: 01/15/18 14:47 Dose: 133.333 mls/hr Insulin Human Regular (Novolin R) 0 unit SC ACHS [facility] PRN Reason: Protocol Last Admin: 01/16/18 08:35 Dose: 2 unit Lactulose (Enulose) 20 gm PO DAILY PRN PRN Reason: Constipation Last Admin: 01/16/18 03:48 Dose: 20 gm Losartan Potassium (Cozaar) 50 mg PO DAILY [facility] Last Admin: 01/16/18 09:57 Dose: 50 mg [facility] Last Admin: 01/16/18 08:38 Dose: 500 mg Pregabalin (Lyrica) 50 mg PO DAILY [facility] Last Admin: 01/16/18 09:57 Dose: 50 mg Rosuvastatin Calcium (Crestor) 5 mg PO HS [facility] Last Admin: 01/15/18 22:46 Dose: 5 mg Physical Exam - Constitutional Appears: Non-toxic, No Acute Distress - Head Exam Head Exam: ATRAUMATIC, NORMOCEPHALIC - Eye Exam Eye Exam: EOMI, PERRL. absent: Scleral icterus Pupil Exam: PERRL. absent: Miosis, Mydriatic - ENT Exam ENT Exam: Mucous Membranes Moist, Normal Oropharynx - Neck Exam Neck exam: Positive for: Full Rom, Normal Inspection - Respiratory Exam Respiratory Exam: Clear to Auscultation Bilateral. absent: Rales, Rhonchi, Wheezes - Cardiovascular Exam Cardiovascular Exam: RRR, +S1, +S2. absent: Gallop, Rubs - GI/Abdominal Exam GI & Abdominal Exam: Normal Bowel Sounds, Soft, Tenderness. absent: Distended, Firm, Guarding, Organomegaly, Rebound, Rigid Additional comments: B/L lQ tenderness to palpation - Extremities Exam Extremities exam: Positive for: pedal edema Additional comments: right hallux partial amputation - Neurological Exam Neurological exam: Alert - Psychiatric Exam Psychiatric exam: Normal Affect, Normal Mood - Skin Skin Exam: Dry, Intact, Normal Color, Warm Results - Vital Signs Recent Vital Signs: Last Vital Signs Temp 97.6 F 01/16/18 08:00 Pulse 81 01/16/18 09:09 Resp 20 01/16/18 08:00 BP 136/78 01/16/18 09:58 Pulse Ox 98 01/16/18 08:00 - Labs Result Diagrams: 01/15/18 07:25 01/15/18 07:25 Labs: Laboratory Results - last 24 hr 01/15/18 01/15/18 01/15/18 12:35 16:44 21:08 POC Glucose (mg/dL) 327 H 273 H 222 H 01/16/18 01/16/18 06:22 11:31 POC Glucose (mg/dL) 247 H 335 H Assessment & Plan - Assessment and Plan (Free Text) Assessment: 72 year old male with PMH of Prostate Cancer s/p TURP 2015, CVA, CAD s/p PCI 2016, DM w/ neuropathy, PAD complicated by right hallux osteomyelitis with partial amputation (02/2017), HTN, HLD, and constipation presenting with weakness. Active treatment of lethargy likely due to Citrobacter/E. faecalis UTI and constipation. Prior colonoscopy four years ago endorsed to be normal. No prior EGD. Plan: -large bowel movement today after Lactulose x1 and Dulcolax RC x1 -continue lactulose BID and Colace BID -counselled on increased fiber and water intake -goal for daily complete bowel regimen -counselled on improving glycemic control -continue bowel regimen daily and outpatient follow up to re-assess symptoms -consider prescription Amitiza/Linzess on outpatient evaluation if failed to improve on multi-drug bowel regimen, <Edward Ashby Y - Last Filed: 01/16/18 17:22> Meds - Medications Medications: Current Medications Apixaban (Eliquis) 2.5 mg PO BID [facility] Last Admin: 01/16/18 09:57 Dose: 2.5 mg Aspirin (Ecotrin) 81 mg PO DAILY [facility] Last Admin: 01/16/18 09:57 Dose: 81 mg Docusate Sodium (Colace) 100 mg PO BID [facility] Furosemide (Lasix) 40 mg IVP DAILY [facility] Last Admin: 01/16/18 09:58 Dose: 40 mg Glipizide (Glucotrol) 5 mg PO BID [facility] Last Admin: 01/16/18 09:57 Dose: 5 mg Dextrose/Sodium Chloride (Dextrose 5%/0.45% Ns 1000 Ml) 1,000 mls @ 60 mls/hr IV .[id number] [facility] Last Admin: 01/15/18 22:48 Dose: 60 mls/hr Piperacillin Sod/Tazobactam Sod (Zosyn 3.375 Gm Iv Premix) 3.375 gm in 50 mls @ 100 mls/hr IVPB Q8H [facility] PRN Reason: Protocol Last Admin: 01/16/18 13:18 Dose: 100 mls/hr Vancomycin/Sodium Chloride (Vancomycin 1 Gm/Ns 200 Ml) 1 gm in 200 mls @ 133.333 mls/hr IVPB Q24H [facility] PRN Reason: Protocol Stop: 01/19/18 14:01 Last Admin: 01/16/18 13:57 Dose: 133.333 mls/hr Insulin Human Regular (Novolin R) 0 unit SC ACHS [facility] PRN Reason: Protocol Last Admin: 01/16/18 13:17 Dose: 4 unit Lactulose (Enulose) 20 gm PO BID [facility] Losartan Potassium (Cozaar) 50 mg PO DAILY [facility] Last Admin: 01/16/18 09:57 Dose: 50 mg [facility]formin [facility]) [facility] Last Admin: 01/16/18 08:38 Dose: 500 mg Pregabalin (Lyrica) 50 mg PO DAILY [facility] Last Admin: 01/16/18 09:57 Dose: 50 mg Rosuvastatin Calcium (Crestor) 5 mg PO HS [facility] Last Admin: 01/15/18 22:46 Dose: 5 mg Results - Vital Signs Recent Vital Signs: Last Vital Signs Temp 97.6 F 01/16/18 08:00 Pulse 86 01/16/18 16:55 Resp 20 01/16/18 08:00 BP 136/78 01/16/18 09:58 Pulse Ox 98 01/16/18 08:00 - Labs Result Diagrams: 01/15/18 07:25 01/15/18 07:25 Labs: Laboratory Results - last 24 hr 01/15/18 01/16/18 01/16/18 21:08 06:22 11:31 POC Glucose (mg/dL) 222 H 247 H 335 H 01/16/18 17:01 POC Glucose (mg/dL) 244 H Attending/Attestation - Attestation I have personally seen and examined this patient.: Yes I have fully participated in the care of the patient.: Yes I have reviewed all pertinent clinical information: Yes Notes (Text): 01/16/18 17:17 I have seen and examined patient with GI fellow. Agree with above documentation with the following additions. In brief this is a 72 year old male with history of CVA, prostate cancer, CAD s/p stent, DM, partial toe amputation who initially presented to hospital with complaint of progressive weakness, currently being treated for UTI. GI called for evaluation of abdominal pain. He suffers from chronic constipation and typically has a bowel movement once every 2-3 days with use of lactulose at home. He also has chronic abdominal pain related to this with relief of discomfort after defecation. He denies nausea, vomiting, fever/chills, weight loss, rectal bleeding, or change in bowel habits. He had a large bowel movement this morning following use of dulcolax. He had a colonoscopy 4 years ago which was normal as per patient. CVA Prostate cancer CAD DM UTI Chronic constipation, abdominal pain - Diet as tolerated - Encourage increased PO water and fiber intake to prevent recurrent constipation - Would begin patient on stool softner and miralax therapy - Optimize blood glucose control - Following resolution of acute medical issues and hospital discharge, suggest outpatient GI follow up - No further planned GI interventions, will sign off case. Please reconsult as necessary, thank you
--- NOTE | 2018-01-16 13:41 | CP.PCM.PN ---
Subjective - Date & Time of Evaluation Date of Evaluation: 01/16/18 Time of Evaluation: 13:41 - Subjective Subjective: CHIEF COMPLAINTS TODAY : AFEBRILE, c/o chronic constipation. SEEN BY GI TODAY S/P GAGAN CHANGED 01/14/18 ROS. HEENT : N. Resp : No cough, wheezing ,pleuritic CP ,or hemoptysis Cardio : No anginal CP, PND, orthopnea, palpitation GI : No abd.pain, n/v ,diarrhea or GI bleeding . [employer] : No headache, vertigo, focal deficit. Musculoskel : No joint swelling , Derm : No rash Psych : Normal affect. Ext : No swelling ,calf pain PE. Pt. is alert awake in no distress. V.S As noted in the chart Head ,ear nose,throat and eyes : Normal. Neck : Supple with normal carotids. Lungs: Clear air entry. Heart : S1 & S2 normal with S4. No murmur. Abd : Soft non tender with normal bowel sounds. Neuro : Moves all ext. with no localized deficit. Ext : No edema with intact pulses.Non tender calves Derm : No rashes or decubitus ulcer. LABS/RADIOLOGY: WBC 9.7 improving Creatinine 2.0/BUN 36. REPEAT BLOOD CULTURES 01/14/18 -VE FOR 48HRS. REPEAT URINE CULTURE 01/14/18 -[facility] BLOOD CULTURE 1:2 SETS +VE SCN ? CONTAMINANT. URINE CULTURE +VE CITROBACTER/ ENTEROCOCCUS -FAECALIS ASSESSMENT/PLAN : W/U OF CHRONIC CONSTIPATION ORDERED. Continue IV Zosyn 3.375 every 8 hourly. Continue IV vancomycin 1 g every 24 hourly. f/u Vanco trough level in amand notify As per AAYUSH. neuro workup in progress. PATIENT FOR MRI OF THE BRAIN.--P Objective - Vital Signs/Intake and Output Vital Signs (last 24 hours): Temp Pulse Resp BP Pulse Ox 97.6 F 76 20 136/78 98 01/16/18 08:00 01/16/18 12:00 01/16/18 08:00 01/16/18 09:58 01/16/18 08:00 Intake and Output: 01/16/18 01/16/18 06:59 18:59 Output Total 750 Balance -750 - Medications Medications: Current Medications Apixaban (Eliquis) 2.5 mg PO BID [facility] Last Admin: 01/16/18 09:57 Dose: 2.5 mg Aspirin (Ecotrin) 81 mg PO DAILY [facility] Last Admin: 01/16/18 09:57 Dose: 81 mg Furosemide (Lasix) 40 mg IVP DAILY [facility] Last Admin: 01/16/18 09:58 Dose: 40 mg Glipizide (Glucotrol) 5 mg PO BID [facility] Last Admin: 01/16/18 09:57 Dose: 5 mg Dextrose/Sodium Chloride (Dextrose 5%/0.45% Ns 1000 Ml) 1,000 mls @ 60 mls/hr IV .[id number] [facility] Last Admin: 01/15/18 22:48 Dose: 60 mls/hr Piperacillin Sod/Tazobactam Sod (Zosyn 3.375 Gm Iv Premix) 3.375 gm in 50 mls @ 100 mls/hr IVPB Q8H [facility] PRN Reason: Protocol Last Admin: 01/16/18 13:18 Dose: 100 mls/hr Vancomycin/Sodium Chloride (Vancomycin 1 Gm/Ns 200 Ml) 1 gm in 200 mls @ 133.333 mls/hr IVPB Q24H [facility] PRN Reason: Protocol Stop: 01/19/18 14:01 Last Admin: 01/15/18 14:47 Dose: 133.333 mls/hr Insulin Human Regular (Novolin R) 0 unit SC ACHS [facility] PRN Reason: Protocol Last Admin: 01/16/18 13:17 Dose: 4 unit Lactulose (Enulose) 20 gm PO DAILY [facility] PRN Reason: Constipation Last Admin: 01/16/18 03:48 Dose: 20 gm Losartan Potassium (Cozaar) 50 mg PO DAILY [facility] Last Admin: 01/16/18 09:57 Dose: 50 mg Metformin HCl (Glucophage) 500 mg PO BIDCC [facility] Last Admin: 01/16/18 08:38 Dose: 500 mg Pregabalin (Lyrica) 50 mg PO DAILY [facility] Last Admin: 01/16/18 09:57 Dose: 50 mg Rosuvastatin Calcium (Crestor) 5 mg PO HS [facility] Last Admin: 01/15/18 22:46 Dose: 5 mg - Labs Labs: 01/15/18 07:25 01/15/18 07:25 PT 12.6 SECONDS (9.7-12.2) H 01/12/18 15:37 INR 1.2 01/12/18 15:37 APTT 38 SECONDS (21-34) H 01/12/18 15:37 Assessment and Plan (1) Gram-positive bacteremia Status: Acute (2) UTI (urinary tract infection) due to urinary indwelling catheter Status: Acute (3) Leukocytosis Status: Acute (4) Weakness Status: Acute (5) Acute CVA (cerebrovascular accident) Status: Acute (6) CAD (coronary artery disease) Status: Acute (7) Diabetes mellitus Status: Chronic (8) HTN (hypertension) Status: Chronic (9) Sleep apnea Status: Acute (10) Chronic constipation Status: Acute
[2018-01-16] MEDS: Vancomycin 1 gm/NS 200 ml 1 GM/200 ML BAG IVPB SCH (13:57)
--- NOTE | 2018-01-16 14:44 | CP.PCM.PN ---
<Marni Barr - Last Filed: 01/16/18 14:41> Subjective - Date & Time of Evaluation Date of Evaluation: 01/16/18 Time of Evaluation: 10:40 - Subjective Subjective: Cardiology progress note ( Dr. Acosta's service) Patient was seen and examined at bedside. Patient was resting in bed comfortably. Patient denies any cardiac complaints such as chest pain, SOB, palpitations, dizziness and lightheadedness. Objective - Vital Signs/Intake and Output Vital Signs (last 24 hours): Temp Pulse Resp BP Pulse Ox 97.6 F 76 20 136/78 98 01/16/18 08:00 01/16/18 12:00 01/16/18 08:00 01/16/18 09:58 01/16/18 08:00 Intake and Output: 01/16/18 01/16/18 06:59 18:59 Output Total 750 Balance -750 - Medications Medications: Current Medications Apixaban (Eliquis) 2.5 mg PO BID [facility] Last Admin: 01/16/18 09:57 Dose: 2.5 mg Aspirin (Ecotrin) 81 mg PO DAILY [facility] Last Admin: 01/16/18 09:57 Dose: 81 mg Furosemide (Lasix) 40 mg IVP DAILY [facility] Last Admin: 01/16/18 09:58 Dose: 40 mg Glipizide (Glucotrol) 5 mg PO BID [facility] Last Admin: 01/16/18 09:57 Dose: 5 mg Dextrose/Sodium Chloride (Dextrose 5%/0.45% Ns 1000 Ml) 1,000 mls @ 60 mls/hr IV .[id number] [facility] Last Admin: 01/15/18 22:48 Dose: 60 mls/hr Piperacillin Sod/Tazobactam Sod (Zosyn 3.375 Gm Iv Premix) 3.375 gm in 50 mls @ 100 mls/hr IVPB Q8H [facility] PRN Reason: Protocol Last Admin: 01/16/18 13:18 Dose: 100 mls/hr Vancomycin/Sodium Chloride (Vancomycin 1 Gm/Ns 200 Ml) 1 gm in 200 mls @ 133.333 mls/hr IVPB Q24H [facility] PRN Reason: Protocol Stop: 01/19/18 14:01 Last Admin: 01/16/18 13:57 Dose: 133.333 mls/hr Insulin Human Regular (Novolin R) 0 unit SC ACHS [facility] PRN Reason: Protocol Last Admin: 01/16/18 13:17 Dose: 4 unit Lactulose (Enulose) 20 gm PO DAILY [facility] PRN Reason: Constipation Last Admin: 01/16/18 03:48 Dose: 20 gm Losartan Potassium (Cozaar) 50 mg PO DAILY [facility] Last Admin: 01/16/18 09:57 Dose: 50 mg Metformin HCl (Glucophage) 500 mg PO BIDCC [facility] Last Admin: 01/16/18 08:38 Dose: 500 mg Pregabalin (Lyrica) 50 mg PO DAILY [facility] Last Admin: 01/16/18 09:57 Dose: 50 mg Rosuvastatin Calcium (Crestor) 5 mg PO HS [facility] Last Admin: 01/15/18 22:46 Dose: 5 mg - Labs Labs: 01/15/18 07:25 01/15/18 07:25 PT 12.6 SECONDS (9.7-12.2) H 01/12/18 15:37 INR 1.2 01/12/18 15:37 APTT 38 SECONDS (21-34) H 01/12/18 15:37 - Constitutional Appears: No Acute Distress - Head Exam Head Exam: ATRAUMATIC - Eye Exam Eye Exam: EOMI - Respiratory Exam Respiratory Exam: NORMAL BREATHING PATTERN. absent: Clear to Ausculation Bilateral, Rhonchi, Wheezes, Respiratory Distress - Cardiovascular Exam Cardiovascular Exam: REGULAR RHYTHM, +S1, +S2 - GI/Abdominal Exam GI & Abdominal Exam: Soft, Normal Bowel Sounds. absent: Rigid, Tenderness - Extremities Exam Extremities Exam: absent: Calf Tenderness, Pedal Edema - Neurological Exam Neurological Exam: Alert, Awake, Oriented x3 Assessment and Plan (1) Pulmonary venous congestion Assessment & Plan: Chest X-ray: Moderate venous congestion. Right hilar prominence. Enlarged ectatic aorta. Cardiomegaly. Calcification at the aortic knob. Echocardiogram ( 02/09/17): LV function is normal. EJ normal range. EF ( 60-65%) BNP: 658, Within normal limits Medications: * Lasix 40mg IV daily Status: Acute (2) CAD (coronary artery disease) Assessment & Plan: s/p PCI with JOVANNY placement in mLAD (2016) ASA 81 mg PO daily Eliquis 2.5mg PO BID Crestor 5mg PO HS Lipid Panel: TGL: 214 Chol: 182 LDL: 101 HDL: 30 HgbA1C: 8.5 Status: Acute (3) Leukocytosis Assessment & Plan: Down trending UC: Citrobacter Diversus and enterococcus faecalis BC: Negative Medications: Zosyn 3.375gm IV q8h Vanco 1gm IV q24h Status: Acute (4) Diabetes mellitus Assessment & Plan: HgbA1c: 8.5 Metformin 500mg PO BID Glipizid 5mg PO BID Novolin R ( ISS- low dose) Accuchecks Status: Chronic (5) HTN (hypertension) Assessment & Plan: Cozaar 50mg PO daily Status: Chronic (6) Diabetic neuropathy Assessment & Plan: Lyrica 50 mg PO daily Status: Acute (7) Prophylactic measure Assessment & Plan: DVT: Eliquis 2.5mg PO BID No further cardiac work-up Patient is stable from cardiology standpoint Please reconsult as necessary Thank you for the opportunity to participate in your care All plans and management discussed with Dr. Acosta Status: Acute <Juanito Acosta - Last Filed: 01/16/18 22:42> Objective - Vital Signs/Intake and Output Vital Signs (last 24 hours): Temp Pulse Resp BP Pulse Ox 97.6 F 81 20 145/81 97 01/16/18 15:00 01/16/18 20:34 01/16/18 15:00 01/16/18 15:00 01/16/18 15:00 Intake and Output: 01/16/18 01/17/18 18:59 06:59 Intake Total 780 Output Total 900 Balance -120 - Medications Medications: Current Medications Apixaban (Eliquis) 2.5 mg PO BID [facility] Last Admin: 01/16/18 17:38 Dose: 2.5 mg Aspirin (Ecotrin) 81 mg PO DAILY [facility] Last Admin: 01/16/18 09:57 Dose: 81 mg Docusate Sodium (Colace) 100 mg PO BID [facility] Last Admin: 01/16/18 17:38 Dose: 100 mg Furosemide (Lasix) 40 mg IVP DAILY [facility] Last Admin: 01/16/18 09:58 Dose: 40 mg Glipizide (Glucotrol) 5 mg PO BID [facility] Last Admin: 01/16/18 17:38 Dose: 5 mg Dextrose/Sodium Chloride (Dextrose 5%/0.45% Ns 1000 Ml) 1,000 mls @ 60 mls/hr IV .[id number] [facility] Last Admin: 01/15/18 22:48 Dose: 60 mls/hr Piperacillin Sod/Tazobactam Sod (Zosyn 3.375 Gm Iv Premix) 3.375 gm in 50 mls @ 100 mls/hr IVPB Q8H [facility] PRN Reason: Protocol Last Admin: 01/16/18 21:49 Dose: 100 mls/hr Vancomycin/Sodium Chloride (Vancomycin 1 Gm/Ns 200 Ml) 1 gm in 200 mls @ 133.333 mls/hr IVPB Q24H [facility] PRN Reason: Protocol Stop: 01/19/18 14:01 Last Admin: 01/16/18 13:57 Dose: 133.333 mls/hr Insulin Human Regular (Novolin R) 0 unit SC ACHS [facility] PRN Reason: Protocol Last Admin: 01/16/18 21:43 Dose: Not Given Lactulose (Enulose) 20 gm PO BID [facility] Last Admin: 01/16/18 17:38 Dose: 20 gm Losartan Potassium (Cozaar) 50 mg PO DAILY [facility] Last Admin: 01/16/18 09:57 Dose: 50 mg Metformin HCl (Glucophage) 500 mg PO BIDCC [facility] Last Admin: 01/16/18 17:38 Dose: 500 mg Pregabalin (Lyrica) 50 mg PO DAILY [facility] Last Admin: 01/16/18 09:57 Dose: 50 mg Rosuvastatin Calcium (Crestor) 5 mg PO HS [facility] Last Admin: 01/16/18 21:49 Dose: 5 mg - Labs Labs: 01/15/18 07:25 01/15/18 07:25 PT 12.6 SECONDS (9.7-12.2) H 01/12/18 15:37 INR 1.2 01/12/18 15:37 APTT 38 SECONDS (21-34) H 01/12/18 15:37 Assessment and Plan - Assessment and Plan (Free Text) Assessment: Patient seen and evaluated personally by ga Plan of care d/w the medical insurance verifier and as documented
[2018-01-17] MEDS: Dextrose 5%/0.45% NS 1,000 ML IV SCH (01:09)
--- NOTE | 2018-01-17 03:28 | PN ---
DATE: 01/16/2018 SUBJECTIVE: The patient was seen and examined at the bedside on 01/16/2018. Looking comfortable. No nausea or vomiting. No hematuria or hematochezia. No swelling of the legs. No chest pain or palpitations. No shortness of breath or palpitation. No fever. No chills. PHYSICAL EXAMINATION: VITAL SIGNS: Temperature 97.6, pulse 76, respiratory rate 20, blood pressure 136/78, pulse oximetry 98. HEENT: Head is normocephalic and atraumatic. Eyes PERRLA. Extraocular muscles are intact. Conjunctivae clear. Nose patent. NECK: Supple. No carotid bruits. No JVD or thyromegaly. CHEST: Bilaterally symmetrical. HEART: S1 and S2 positive. LUNGS: Clear to auscultation. ABDOMEN: Soft. Bowel sounds positive. No organomegaly. EXTREMITIES: No edema, no cyanosis. NEUROLOGIC: The patient is awake and alert. Moving all 4 extremities. No focal deficits. MEDICATIONS: Eliquis, Ecotrin, Lasix, Glucotrol, Zosyn, vancomycin, insulin, Enulose, losartan, metformin, Lyrica, Crestor. LABORATORY DATA: White blood cell 9.7, hemoglobin 11.7, hematocrit 33.9, platelets 286. Sodium 140, potassium 4.5, BUN 32, creatinine 2, glucose 272. ASSESSMENT AND PLAN: Mr. Jules Campo is a 72-year-old male with renal insufficiency, hyperglycemia, pulmonary venous congestion. Continue Lasix. Chronic obstructive pulmonary disease, coronary artery disease. Continue aspirin, Eliquis, Crestor. Hypertriglyceridemia. Leukocytosis down trending. Urine culture showed Citrobacter diversus and Enterococcus fecalis. Continue Zosyn, vancomycin. Diabetes mellitus, hemoglobin was 8.5, uncontrolled diabetes, hypertension. Creatinine stable. Diabetic nephropathy. Gastrointestinal and deep venous thrombosis prophylaxes. Repeat labs. Discussion done with patient's nephew, We will follow up. Zuleima Jackson MD MTDJackson
[2018-01-17] MEDS: Piperacill/Tazo 3.375gm in Dex 3.375 GM/50 ML BAG IVPB SCH ×3 (05:20→23:03)
--- NOTE | 2018-01-17 07:42 | CON ---
DATE: 01/16/2018 UROLOGY CONSULTATION REASON FOR CONSULTATION: Urinary retention. HISTORY OF THE PRESENT ILLNESS: Mr. Campo is under care of Dr. Jackson. He was admitted with CHF and also altered mental status who is seen me previously. He is currently able to communicate better, apparently, and upon admission, he says he has had trouble urinating before, has not be in the office as of recently. He has an indwelling Carr catheter and Urology has been consulted. PAST MEDICAL AND SURGICAL HISTORY: As listed on the chart. REVIEW OF SYSTEMS: Listed above. Major complaint of his is that he has not had a bowel movement in a few days. See plan below. MEDICATIONS: See chart. ALLERGIES: SEE CHART. PHYSICAL EXAMINATION GENERAL: A well-nourished male, in no apparent distress, currently resting comfortably in the bed. ABDOMEN: Overall soft. It is somewhat distended. There is no evidence of acute abdomen. No rebound or guarding. RECTAL: Deferred. DIAGNOSES: Urinary retention and voiding dysfunction. PLAN: As follows: 1. Carr. 2. Check serum and PSA. 3. Check my old records. 4. Offer the patient serial labs to assist him with the bowel movement, and then further plans as per GI consultants will have to discuss depending on how the patient does clinically and then most likely discharge him home with an indwelling Carr catheter as per the request and then give a voiding trial through the office. Ezra Shelley MD
[2018-01-17] MEDS: (Novolin R) Insulin Human Regular 100 units/ml vial SC SCH ×3 (08:45→23:04)
--- NOTE | 2018-01-17 14:15 | CP.PCM.PN ---
Subjective - Date & Time of Evaluation Date of Evaluation: 01/17/18 Time of Evaluation: 14:15 - Subjective Subjective: CHIEF COMPLAINTS TODAY : AFEBRILE, RESTING COMFORTABLY. NO NEW COMPLAINTS. S/P FOLY CHANGED 01/14/18 ROS. HEENT : N. Resp : No cough, wheezing ,pleuritic CP ,or hemoptysis Cardio : No anginal CP, PND, orthopnea, palpitation GI : No abd.pain, n/v ,diarrhea or GI bleeding . 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 Musculoskel : No joint swelling , Derm : No rash Psych : Normal affect. Ext : No swelling ,calf pain PE. Pt. is alert awake in no distress. V.S As noted in the chart Head ,ear nose,throat and eyes : Normal. Neck : Supple with normal carotids. Lungs: Clear air entry. Heart : S1 & S2 normal with S4. No murmur. Abd : Soft non tender with normal bowel sounds. Neuro : Moves all ext. with no localized deficit. Ext : No edema with intact pulses.Non tender calves Derm : No rashes or decubitus ulcer. LABS/RADIOLOGY: psa 1.98 N WBC 9.7 improving Creatinine 2.0/BUN 36. VANCO TROUGH 01/17 --> 9.2 LOW REPEAT BLOOD CULTURES 01/14/18 -VE FOR 48HRS. REPEAT URINE CULTURE 01/14/18 - +VE ENTEROCOCCUS FAECALIS - AMPICILLIN BLOOD CULTURE 1:2 SETS +VE SCN ? CONTAMINANT. URINE CULTURE +VE CITROBACTER/ ENTEROCOCCUS -FAECALIS. BRAIN MRI -NOTED-See report NO ICH, SIGNIFICANT VOLUME LOSS. CH ISCHEMIC CHANGES ASSESSMENT/PLAN : W/U OF CHRONIC CONSTIPATION ORDERED. Continue IV Zosyn 3.375 every 8 hourly.01/14/18. DC IV vancomycin 1 g every 24 hourly. As per . PER NEURO. Objective - Vital Signs/Intake and Output Vital Signs (last 24 hours): Temp Pulse Resp BP Pulse Ox 98.1 F 78 20 167/78 H 98 01/17/18 08:00 01/17/18 08:00 01/17/18 08:00 01/17/18 10:44 01/17/18 08:00 Intake and Output: 01/17/18 01/17/18 06:59 18:59 Intake Total 780 480 Output Total 900 Balance -120 480 - Medications Medications: Current Medications Apixaban (Eliquis) 2.5 mg PO BID [facility] Last Admin: 01/17/18 10:45 Dose: 2.5 mg Aspirin (Ecotrin) 81 mg PO DAILY [facility] Last Admin: 01/17/18 10:45 Dose: 81 mg Docusate Sodium (Colace) 100 mg PO BID [facility] Last Admin: 01/17/18 10:44 Dose: 100 mg Furosemide (Lasix) 40 mg IVP DAILY [facility] Last Admin: 01/17/18 10:44 Dose: 40 mg Glipizide (Glucotrol) 5 mg PO BID [facility] Last Admin: 01/17/18 10:45 Dose: 5 mg Dextrose/Sodium Chloride (Dextrose 5%/0.45% Ns 1000 Ml) 1,000 mls @ 60 mls/hr IV .[id number] [facility] Last Admin: 01/17/18 01:09 Dose: 60 mls/hr Piperacillin Sod/Tazobactam Sod (Zosyn 3.375 Gm Iv Premix) 3.375 gm in 50 mls @ 100 mls/hr IVPB Q8H [facility] PRN Reason: Protocol Last Admin: 01/17/18 13:59 Dose: 100 mls/hr Vancomycin/Sodium Chloride (Vancomycin 1 Gm/Ns 200 Ml) 1 gm in 200 mls @ 133.333 mls/hr IVPB Q24H [facility] PRN Reason: Protocol Stop: 01/19/18 14:01 Last Admin: 01/16/18 13:57 Dose: 133.333 mls/hr Insulin Human Regular (Novolin R) 0 unit SC ACHS [facility] PRN Reason: Protocol Last Admin: 01/17/18 08:45 Dose: 2 unit Lactulose (Enulose) 20 gm PO BID [facility] Last Admin: 01/17/18 10:46 Dose: Not Given Losartan Potassium (Cozaar) 50 mg PO DAILY [facility] Last Admin: 01/17/18 10:45 Dose: 50 mg [facility] Last Admin: 01/17/18 08:57 Dose: 500 mg Pregabalin (Lyrica) 50 mg PO DAILY [facility] Last Admin: 01/17/18 10:45 Dose: 50 mg Rosuvastatin Calcium (Crestor) 5 mg PO [facility] Last Admin: 01/16/18 21:49 Dose: 5 mg - Labs Labs: 01/15/18 07:25 01/15/18 07:25 PT 12.6 SECONDS (9.7-12.2) H 01/12/18 15:37 INR 1.2 01/12/18 15:37 APTT 38 SECONDS (21-34) H 01/12/18 15:37 Assessment and Plan (1) Gram-positive bacteremia Status: Acute (2) UTI (urinary tract infection) due to urinary indwelling catheter Status: Acute (3) Leukocytosis Status: Acute (4) Weakness Status: Acute (5) Acute CVA (cerebrovascular accident) Status: Acute (6) CAD (coronary artery disease) Status: Acute (7) Diabetes mellitus Status: Chronic (8) HTN (hypertension) Status: Chronic (9) Sleep apnea Status: Acute (10) Chronic constipation Status: Acute
[2018-01-17] MEDS: Vancomycin 1 gm/NS 200 ml 1 GM/200 ML BAG IVPB SCH (14:46)
--- NOTE | 2018-01-18 03:41 | PN ---
DATE: 01/17/2018 SUBJECTIVE: The patient was seen and examined at the bedside on 01/17/2018. was standing at the bedside also. Looking comfortable, still has Carr catheter. No fever, no chills. No nausea, vomiting, diarrhea, hematuria, or hematochezia. No swelling of the legs. No chest pain or palpitations. PHYSICAL EXAMINATION: VITAL SIGNS: Temperature 98.1, pulse 78, respiratory rate 20, blood pressure 161/78, pulse oximetry 98. HEENT: Head normocephalic, atraumatic. Eyes PERRLA. Extraocular muscles intact. Conjunctivae clear. Nose patent. Mucous membranes are moist. NECK: Supple. No carotid bruits, JVD, or thyromegaly. CHEST: Bilaterally symmetrical. HEART: S1, S2 positive. LUNGS: Clear to auscultation. ABDOMEN: Soft. Bowel sounds present. No organomegaly. EXTREMITIES: No edema. No cyanosis. NEUROLOGIC: The patient is awake, alert. Follows simple commands. MEDICATIONS: Eliquis, Ecotrin, Colace, Lasix, Glucotrol, dextrose, Zosyn, vancomycin, Novolin, lactulose, metformin, Lyrica, Crestor. LABORATORY DATA: White blood cell 9.7, hemoglobin 11.7, hematocrit 33.9, platelets 286. Sodium 140, potassium 4.5, BUN 36, creatinine 2, glucose 222. ASSESSMENT AND PLAN: Mr. Alber Vicente is a 72-year-old male with anemia, renal insufficiency, hyperglycemia, gram positive bacteremia. Urinary tract infection may be due to urinary indwelling catheter, urologist is on the case, Infectious Disease is on the case for intravenous antibiotics, leukocytosis, fatigue. He is status post cerebrovascular accident, coronary artery disease, diabetes mellitus, hypertension, sleep apnea, chronic constipation. Gastroenterology is on the case also. The patient is seen by the drill press hand and urologist. Discussion done with the patient and . Repeat labs. We will follow up. Zuleima Jackson MD
[2018-01-18] MEDS: Piperacill/Tazo 3.375gm in Dex 3.375 GM/50 ML BAG IVPB SCH ×3 (06:05→21:42)
[2018-01-18 06:29] LABS: BASO % 0.3 % (0.0-2.0); EOS # 0.5 K/uL (0.0-0.7); EOS % 5.5 % (0.0-4.0); HEMOGLOBIN 11.7 g/dL (12.0-18.0); LYMPH # 2.3 K/uL (1.0-4.3); LYMPH % 23.8 % (20.0-40.0); MEAN CELL VOLUME 86.9 fL (80.0-94.0); MEAN CORPUSCULAR HEMOGLOBIN 29.6 pg (27.0-31.0); MEAN CORPUSCULAR HGB CONC 34.1 g/dL (33.0-37.0); MEAN PLATELET VOLUME 8.3 fL (7.2-11.7); MONO # 0.9 K/uL (0.0-0.8); MONO % 8.8 % (0.0-10.0); NEUT % 61.6 % (50.0-75.0); NRBC % 0.1 % (0.0-2.0); RBC 3.95 Mil/uL (4.40-5.90); RED CELL DISTRIBUTION WIDTH 13.1 % (11.5-14.5); WHITE BLOOD COUNT 9.7 K/uL (4.8-10.8)
[2018-01-18] MEDS: (Novolin R) Insulin Human Regular 100 units/ml vial SC SCH ×4 (08:34→21:44)
--- NOTE | 2018-01-18 14:09 | CP.PCM.PN ---
Subjective - Date & Time of Evaluation Date of Evaluation: 01/18/18 Time of Evaluation: 14:09 - Subjective Subjective: CHIEF COMPLAINTS TODAY : AFEBRILE, RESTING COMFORTABLY. minimal activity states moved his bowels yesterday S/P FOLY CHANGED 01/14/18 ROS. HEENT : N. Resp : No cough, wheezing ,pleuritic CP ,or hemoptysis Cardio : No anginal CP, PND, orthopnea, palpitation GI : No abd.pain, n/v ,diarrhea or GI bleeding . 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 Musculoskel : No joint swelling , Derm : No rash Psych : Normal affect. Ext : No swelling ,calf pain PE. Pt. is alert awake in no distress. V.S As noted in the chart Head ,ear nose,throat and eyes : Normal. Neck : Supple with normal carotids. Lungs: Clear air entry. Heart : S1 & S2 normal with S4. No murmur. Abd : Soft non tender with normal bowel sounds. Neuro : Moves all ext. with no localized deficit. Ext : No edema with intact pulses.Non tender calves Derm : No rashes or decubitus ulcer. LABS/RADIOLOGY: psa 1.98 N WBC 9.7 improving Creatinine 2.0/BUN 36.---> 1.7/BUN 27 IMPROVING VANCO TROUGH 01/17 --> 9.2 LOW REPEAT BLOOD CULTURES 01/14/18 -VE FOR 48HRS. REPEAT URINE CULTURE 01/14/18 - +VE ENTEROCOCCUS FAECALIS - AMPICILLIN BLOOD CULTURE 1:2 SETS +VE SCN ? CONTAMINANT. URINE CULTURE +VE CITROBACTER/ ENTEROCOCCUS -FAECALIS. BRAIN MRI -NOTED-See report NO ICH, SIGNIFICANT VOLUME LOSS. CH ISCHEMIC CHANGES ASSESSMENT/PLAN : CONTINUE IV ZOSYN 3.375MG IV Q 8HRLY.01/14/18. F/U REPEAT URINE CULTURES. (ORDERED BY 01/18/18 ) SEEN BY AND RECOMENDATIONS NOTED. PER NEURO. Objective - Vital Signs/Intake and Output Vital Signs (last 24 hours): Temp Pulse Resp BP Pulse Ox 97.9 F 97 H 20 165/101 H 96 01/18/18 07:11 01/18/18 10:25 01/18/18 07:11 01/18/18 10:26 01/18/18 07:11 Intake and Output: 01/18/18 01/18/18 06:59 18:59 Output Total 800 Balance -800 - Medications Medications: Current Medications Apixaban (Eliquis) 2.5 mg PO BID [facility] Last Admin: 01/18/18 10:25 Dose: 2.5 mg Aspirin (Ecotrin) 81 mg PO DAILY [facility] Last Admin: 01/18/18 10:25 Dose: 81 mg Docusate Sodium (Colace) 100 mg PO BID [facility] Last Admin: 01/18/18 10:25 Dose: 100 mg Furosemide (Lasix) 40 mg IVP DAILY [facility] Last Admin: 01/18/18 10:26 Dose: 40 mg Glipizide (Glucotrol) 5 mg PO BID [facility] Last Admin: 01/18/18 10:25 Dose: 5 mg Dextrose/Sodium Chloride (Dextrose 5%/0.45% Ns 1000 Ml) 1,000 mls @ 60 mls/hr IV .[id number] [facility] Last Admin: 01/17/18 01:09 Dose: 60 mls/hr Piperacillin Sod/Tazobactam Sod (Zosyn 3.375 Gm Iv Premix) 3.375 gm in 50 mls @ 100 mls/hr IVPB Q8H [facility] PRN Reason: Protocol Last Admin: 01/18/18 14:08 Dose: 100 mls/hr Insulin Human Regular (Novolin R) 0 unit SC ACHS [facility] PRN Reason: Protocol Last Admin: 01/18/18 13:14 Dose: 5 unit Lactulose (Enulose) 20 gm PO BID [facility] Last Admin: 01/18/18 10:25 Dose: 20 gm Losartan Potassium (Cozaar) 50 mg PO DAILY [facility] Last Admin: 01/18/18 10:25 Dose: 50 mg Metformin HCl (Glucophage) 500 mg PO BIDCC [facility] Last Admin: 01/18/18 08:34 Dose: 500 mg Pregabalin (Lyrica) 50 mg PO DAILY [facility] Last Admin: 01/18/18 10:25 Dose: 50 mg Rosuvastatin Calcium (Crestor) 5 mg PO HS [facility] Last Admin: 01/17/18 23:03 Dose: 5 mg - Labs Labs: 01/18/18 06:15 01/18/18 06:15 PT 12.6 SECONDS (9.7-12.2) H 01/12/18 15:37 INR 1.2 01/12/18 15:37 APTT 38 SECONDS (21-34) H 01/12/18 15:37 Assessment and Plan (1) Gram-positive bacteremia Status: Acute (2) UTI (urinary tract infection) due to urinary indwelling catheter Assessment & Plan: F/U REPEAT UA AND URINE CULTURE. Status: Acute (3) Leukocytosis Status: Acute (4) Weakness Status: Acute (5) Acute CVA (cerebrovascular accident) Status: Acute (6) CAD (coronary artery disease) Status: Acute (7) Diabetes mellitus Status: Chronic (8) HTN (hypertension) Status: Chronic (9) Sleep apnea Status: Acute (10) Chronic constipation Status: Acute (11) Urinary retention Assessment & Plan: S/P FOLYS CHANGED 01/14/18. TRIAL OF VOIDING ONCE PT RESUMES ACTIVITY PER . Status: Acute
[2018-01-18] MEDS: Dextrose 5%/0.45% NS 1,000 ML IV SCH (14:57)
--- NOTE | 2018-01-18 16:17 | CP.PCM.CON ---
History of Present Illness - History of Present Illness History of Present Illness: Nephrology Consultation Note: Assessment: Stable MIld Acute Kidney Injury (N17.9) likely hemodynamic Diabetic chronic Kidney Disease (E11.22) Hypertensive Chronic Kidney Disease (I12.9) Chronic Kidney Disease (N18.3) Stage 3 with? proteinuria (R80.9) likely due to DM/HTN Anemia (D64.9), uncontrolled HTN (I12.9) CA prostate, OAB s/p botox inj, LATRELL, PVD, neuropathy, CAD s/p stent Plan No acute need for renal replacement therapy at this time. Hypertension control with meds as ordered. Maintain hemodynamics stable. Avoid hypotension. Patient on ARB as losartan 50 mg/day, increase to 100 mg Monitor Input/Output, daily weights and renal function with basic metabolic panel d/c IVF can change lasix to PO 40 mg/day will need to stop metformin once GFR <30, can continue current dose for now started nephrovite daily. ID, cardiology, following, recs noted Check urine spot protein/creatinine, albumin/creatinine ratio Anemia work up with TSAT/Ferritin/Vitamin B12 Check for 25-OH vitamin D, iPTH, phosphorus level. Dose meds/antibiotics for reduced GFR. Avoid fleets enema/magnesium based laxatives. Avoid nephrotoxins/NSAIDs/ iodinated contrast (unless needed emergently) Glycemic control Further work up/management as per primary team Thanks for allowing me to participate in care of your patient. Will follow patient with you. Please call if any Qs. had d/w team Dr Justin Leonard Office: [phone] Chief Complaint; gen weakness Reason for consult: CKD HPI: Pt is a 72 M with hx of diabetes Mellitus (15 years) with neuropathy, hypertension (years), CA prostate, OAB s/p botox inj, LATRELL, PVD, CAD s/p stent and CKD stage 3 presented with complaints of gen weakness and found ot have UTI and pulm congestion. diuresed with lasix. seen by ID and given ABx. seen by cardio and as well. renal consult for PORTIA on CKD 3 management Denies OTC/herbal meds or NSAIDs No recent iodinated contrast exposure. No obvious episodes of low BP. ROS: Cardiovascular: No chest pain. Pulmonary: No shortness of breath Gastrointestinal: denies abdominal pain No nausea. No vomiting. Genitourinary: No pain while urinating. Denies blood in urine. has chaney All other negative except as mentioned in HPI. has weakness Physical Examination: General Appearance: Comfortable, in no acute respiratory distress, co-operative . obese Vitals reviewed and noted as below Head; Atraumatic, normocephalic ENT: no ulcers no thrush. Tongue is midline. Oropharynx: no rash or ulcers. EYES: Pupils are equal, round and reactive to light accommodation. Eye muscles and extraocular movement intact. Sclera is anicteric. Neck; supple no lymphadenopathy, no thyromegaly or bruit Lungs: Normal respiratory rate/effort. Breath sounds bilateral equal and clear Heart: Normal rate. s1s2 normal. No rub or gallop. Extremities: no edema. No varicose veins Neurological: Patient is alert, awake and oriented to person, place and time. No focal deficit. Strength bilateral appropriate and equal Skin: Warm and dry. Normal turgor. No rash. Palpitation: Normal elasticity for age Abdomen: Abdomen is soft. Bowel sounds +. There is no abdominal tenderness, no guarding/rigidity no organomegaly Psych: normal insight and normal affect/mood MSK: no joint tenderness or swelling. Digits and nails normal, no deformity : kidney or bladder not palpable. has hcaney + Labs/imaging reviewed. Past medical history, past surgical history, family history, social history, allergy reviewed and noted as below Family hx: no hx of CKD. Rest non-contributory renal imaging WNLUA 3+ protein CAROLYNE/C3 and C4 WNL last year Past Patient History - Infectious Disease Hx of Infectious Diseases: None - Past Medical History & Family History Past Medical History?: Yes - Past Social History Smoking Status: Never Smoked - CARDIAC Hx Hypercholesterolemia: Yes Hx Hypertension: Yes - NEUROLOGICAL HX Cerebrovascular Accident: Yes - HEENT Hx Cataracts: Yes (BILAT.) - ENDOCRINE/METABOLIC Hx Endocrine Disorders: Yes Hx Diabetes Mellitus Type 2: Yes - HEMATOLOGICAL/ONCOLOGICAL Hx Anemia: Yes - INTEGUMENTARY Hx Dermatological Problems: Yes - MUSCULOSKELETAL/RHEUMATOLOGICAL Hx Arthritis: Yes - GASTROINTESTINAL Hx Gastrointestinal Disorders: Yes - GENITOURINARY/GYNECOLOGICAL Hx Prostate Problems: Yes - PSYCHIATRIC Hx Substance Use: No - SURGICAL HISTORY Hx Coronary Stent: Yes (X1) - ANESTHESIA Hx Anesthesia: Yes Hx Anesthesia Reactions: No Hx Malignant Hyperthermia: No Meds Allergies/Adverse Reactions: Allergies Allergy/AdvReac Type Severity Reaction Status Date / Time No Known Allergies Allergy Verified 01/12/18 15:24 - Medications Medications: Current Medications Apixaban (Eliquis) 2.5 mg PO BID [facility] Last Admin: 01/18/18 10:25 Dose: 2.5 mg Aspirin (Ecotrin) 81 mg PO DAILY [facility] Last Admin: 01/18/18 10:25 Dose: 81 mg Docusate Sodium (Colace) 100 mg PO BID [facility] Last Admin: 01/18/18 10:25 Dose: 100 mg Furosemide (Lasix) 40 mg IVP DAILY [facility] Last Admin: 01/18/18 10:26 Dose: 40 mg Glipizide (Glucotrol) 5 mg PO BID [facility] Last Admin: 01/18/18 10:25 Dose: 5 mg Piperacillin Sod/Tazobactam Sod (Zosyn 3.375 Gm Iv Premix) 3.375 gm in 50 mls @ 100 mls/hr IVPB Q8H [facility] PRN Reason: Protocol Last Admin: 01/18/18 14:08 Dose: 100 mls/hr Insulin Human Regular (Novolin R) 0 unit SC ACHS [facility] PRN Reason: Protocol Last Admin: 01/18/18 13:14 Dose: 5 unit Lactulose (Enulose) 20 gm PO BID [facility] Last Admin: 01/18/18 10:25 Dose: 20 gm Losartan Potassium (Cozaar) 100 mg PO DAILY [facility] Metformin HCl (Glucophage) 500 mg PO BIDCC [facility] Last Admin: 01/18/18 08:34 Dose: 500 mg Pregabalin (Lyrica) 50 mg PO DAILY [facility] Last Admin: 01/18/18 10:25 Dose: 50 mg Rosuvastatin Calcium (Crestor) 5 mg PO HS [facility] Last Admin: 01/17/18 23:03 Dose: 5 mg Vitamin B Complex/Vit C/Folic Acid (Nephro-Ale) 1 tab PO 0800 [facility] Results - Vital Signs Recent Vital Signs: Last Vital Signs Temp 97.9 F 01/18/18 07:11 Pulse 97 H 01/18/18 10:25 Resp 20 01/18/18 07:11 BP 165/101 H 01/18/18 10:26 Pulse Ox 96 01/18/18 07:11 - Labs Result Diagrams: 01/18/18 06:15 01/18/18 06:15 Labs: Laboratory Results - last 24 hr 01/17/18 01/17/18 01/18/18 17:01 21:24 06:15 WBC RBC Hgb Hct MCV MCH MCHC RDW Plt Count MPV Neut % (Auto) Lymph % (Auto) [place] % (Auto) Eos % (Auto) Baso % (Auto) Neut # (Auto) Lymph # (Auto) [place] # (Auto) Eos # (Auto) Baso # (Auto) Sodium 140 Potassium 4.4 Chloride 102 Carbon Dioxide 26 Anion Gap 16 BUN 27 H Creatinine 1.7 H Est GFR ( Amer) 48 Est GFR (Non-Af Amer) 40 POC Glucose (mg/dL) 308 H 282 H Random Glucose 245 H Calcium 9.0 01/18/18 01/18/18 01/18/18 06:15 06:22 11:31 WBC 9.7 RBC 3.95 L Hgb 11.7 L Hct 34.3 L MCV 86.9 MCH 29.6 MCHC 34.1 RDW 13.1 Plt Count 274 MPV 8.3 Neut % (Auto) 61.6 Lymph % (Auto) 23.8 [place] % (Auto) 8.8 Eos % (Auto) 5.5 H Baso % (Auto) 0.3 Neut # (Auto) 6.0 Lymph # (Auto) 2.3 [place] # (Auto) 0.9 H Eos # (Auto) 0.5 Baso # (Auto) 0.0 Sodium Potassium Chloride Carbon Dioxide Anion Gap BUN Creatinine Est GFR ( Amer) Est GFR (Non-Af Amer) POC Glucose (mg/dL) 246 H 350 H Random Glucose Calcium
--- NOTE | 2018-01-18 16:59 | PCM.URO ---
Urology Progress Note - General General: Tolerating Diet - Subjective Abdominal Pain: No Flank Pain: No Nausea: No Voiding Well: No (catheter in place) Hematuria: No Dsypnea: No Chest Pain: No Fever & Chills: No - Objective Lab Studies: Reviewed (Hct=34 Creat=1.7) Lab Results Last 24 Hours: Laboratory Results - last 24 hr 01/17/18 01/17/18 01/18/18 17:01 21:24 06:15 WBC RBC Hgb Hct MCV MCH MCHC RDW Plt Count MPV Neut % (Auto) Lymph % (Auto) [place] % (Auto) Eos % (Auto) Baso % (Auto) Neut # (Auto) Lymph # (Auto) [place] # (Auto) Eos # (Auto) Baso # (Auto) Sodium 140 Potassium 4.4 Chloride 102 Carbon Dioxide 26 Anion Gap 16 BUN 27 H Creatinine 1.7 H Est GFR ( Amer) 48 Est GFR (Non-Af Amer) 40 POC Glucose (mg/dL) 308 H 282 H Random Glucose 245 H Calcium 9.0 01/18/18 01/18/18 01/18/18 06:15 06:22 11:31 WBC 9.7 RBC 3.95 L Hgb 11.7 L Hct 34.3 L MCV 86.9 MCH 29.6 MCHC 34.1 RDW 13.1 Plt Count 274 MPV 8.3 Neut % (Auto) 61.6 Lymph % (Auto) 23.8 [place] % (Auto) 8.8 Eos % (Auto) 5.5 H Baso % (Auto) 0.3 Neut # (Auto) 6.0 Lymph # (Auto) 2.3 [place] # (Auto) 0.9 H Eos # (Auto) 0.5 Baso # (Auto) 0.0 Sodium Potassium Chloride Carbon Dioxide Anion Gap BUN Creatinine Est GFR ( Amer) Est GFR (Non-Af Amer) POC Glucose (mg/dL) 246 H 350 H Random Glucose Calcium 01/18/18 16:38 WBC RBC Hgb Hct MCV MCH MCHC RDW Plt Count MPV Neut % (Auto) Lymph % (Auto) [place] % (Auto) Eos % (Auto) Baso % (Auto) Neut # (Auto) Lymph # (Auto) [place] # (Auto) Eos # (Auto) Baso # (Auto) Sodium Potassium Chloride Carbon Dioxide Anion Gap BUN Creatinine Est GFR ( Amer) Est GFR (Non-Af Amer) POC Glucose (mg/dL) 291 H Random Glucose Calcium Intake & Output: Intake & Output 01/17/18 01/18/18 01/18/18 18:59 06:59 18:59 Intake Total 1280 450 Output Total 2600 800 1999 Balance -1320 800 -1550 Intake: Intake, IV Amount 980 450 Left 980 450 Oral 300 Output: Urine 2600 800 2000 Urethral (Carr) 2600 800 2000 Other: # Bowel Movements 1 1 Vital Signs: Vital Signs - 24 hr 01/17/18 01/18/18 01/18/18 23:25 00:00 07:11 Temperature 97.3 F L 97.9 F Pulse Rate 81 73 79 Respiratory 20 20 Rate Blood Pressure 146/82 170/82 H O2 Sat by Pulse 95 96 Oximetry 01/18/18 01/18/18 01/18/18 07:34 10:25 10:26 Temperature Pulse Rate 74 97 H Respiratory Rate Blood Pressure 165/101 H 165/101 H O2 Sat by Pulse Oximetry 01/18/18 15:00 Temperature 98.1 F Pulse Rate 83 Respiratory 20 Rate Blood Pressure 136/81 O2 Sat by Pulse 97 Oximetry - Physical Exam Abdominal Exam: Soft, Non-Tender. absent: Non-Distended Back: No CVA Tenderness Genitalia: Without Inflammation Urinary Catheter Draining Well: Yes Urine Color: Clear, Yellow - Male Phallus: Normal Scrotum: Normal - Plan Catheter Care: Yes Intake & Output: Yes See Orders: Yes Additional Information: IMP: UTI. Retention. Hx of prostate ca. Rec/p: catheter in place. trial of voiding t/f, after level of activity increases. Pt is still bed-bound. Discussed w pt and . PSA. Repeat culture. YS - Date & Time of Note Date: 01/18/18 Time: 10:40
[2018-01-18 20:27] LABS: IRON 67 ug/dL (49-181)
[2018-01-18 20:36] LABS: % IRON SATURATION 21 (20-55); TOTAL IRON BINDING CAPACITY 320 ug/dL (250-450)
[2018-01-18 21:03] LABS: FERRITIN 69.2 ng/mL
[2018-01-19 02:24] LABS: URINE BACTERIA RARE (<OCC); URINE BILIRUBIN NEGATIVE (NEGATIVE); URINE BLOOD NEGATIVE (NEGATIVE); URINE CLARITY Hazy (Clear); URINE COLOR Yellow (YELLOW); URINE GLUCOSE (UA) 2+ mg/dL (Normal); URINE LEUKOCYTE ESTERASE 1+ Leu/uL (Negative); URINE PROTEIN 3+ mg/dL (NEGATIVE); URINE UROBILINOGEN NORMAL mg/dL (0.2-1.0)
--- NOTE | 2018-01-19 04:36 | PN ---
DATE: 01/18/2018 SUBJECTIVE: The patient is a 72-year-old male. The patient is seen and examined at bedside. Looking comfortable. No change of status. Moved his bowel movements yesterday. No fever. No chills. No headache. No dizziness. No hematuria. No hematochezia. PHYSICAL EXAMINATION: VITAL SIGNS: Temperature 97.9, pulse 97, respiratory rate 20, blood pressure 155/101, pulse oximetry 96. HEENT: Head is normocephalic, atraumatic. Eyes PERRLA. Extraocular muscles intact. Conjunctivae clear. Nose patent. Mucous membranes moist. NECK: Supple. No carotid bruits. No JVD or thyromegaly. CHEST: Bilaterally symmetrical. HEART: S1, S2 positive. LUNGS: Clear to auscultation. ABDOMEN: Soft. Bowel sounds present. No organomegaly. EXTREMITIES: No edema. No cyanosis. NEUROLOGIC: The patient is awake, alert. Moving all four extremities. No focal deficits. MEDICATIONS: Eliquis, Ecotrin, Colace, Lasix, Glucotrol, insulin, lactulose, losartan, metformin, and Lyrica. LABORATORY DATA: White blood cell 9.7, hemoglobin 11.7, hematocrit 34.3, platelets 274. Sodium 140, potassium 4.4, BUN 27, creatinine 1.7, glucose 245. ASSESSMENT AND PLAN: Mr. Jules Campo is a 72-year-old male with anemia, renal insufficiency, hyperglycemia, gram-positive bacteremia, urinary tract infection due to urinary indwelling catheter. He has leukocytosis, fatigue, history of cerebrovascular accident, history of coronary artery disease, hypertension, diabetes mellitus, sleep apnea, chronic constipation, but did have bowel movements yesterday, urinary retention. Actually, Carr was changed on 01/14/[address] chisholm. Continue antibiotics as per Infectious Disease. Pitch Flaker is on the case. Also, he adjusted medications for blood pressure. Serial electrolytes. Repeat labs. We will follow up. Zuleima Jackson MD [place]
[2018-01-19] MEDS: Piperacill/Tazo 3.375gm in Dex 3.375 GM/50 ML BAG IVPB SCH ×3 (05:57→21:35)
[2018-01-19] MEDS: (Novolin R) Insulin Human Regular 100 units/ml vial SC SCH ×4 (08:24→21:24)
[2018-01-19] MEDS: Multivitamin Vitamin B Complex (Nephro-Vite) Tab PO SCH (08:24)
[2018-01-19 08:35] LABS: CALCIUM 9.4 mg/dl (8.6-10.4)
--- NOTE | 2018-01-19 17:56 | CP.PCM.PN ---
Subjective - Date & Time of Evaluation Date of Evaluation: 01/19/18 Time of Evaluation: 17:56 - Subjective Subjective: CHIEF COMPLAINTS TODAY : AFEBRILE, NO NEW COMPLAINTS S/P FOLY CHANGED 01/14/18 ROS. HEENT : N. Resp : No cough, wheezing ,pleuritic CP ,or hemoptysis Cardio : No anginal CP, PND, orthopnea, palpitation GI : No abd.pain, n/v ,diarrhea or GI bleeding . 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 Musculoskel : No joint swelling , Derm : No rash Psych : Normal affect. Ext : No swelling ,calf pain PE. Pt. is alert awake in no distress. V.S As noted in the chart Head ,ear nose,throat and eyes : Normal. Neck : Supple with normal carotids. Lungs: Clear air entry. Heart : S1 & S2 normal with S4. No murmur. Abd : Soft non tender with normal bowel sounds. Neuro : Moves all ext. with no localized deficit. Ext : No edema with intact pulses.Non tender calves Derm : No rashes or decubitus ulcer. LABS/RADIOLOGY: psa 1.98 N 01/18/18 WBC 9.7 improving Creatinine 1.8/bun 31 REPEAT BLOOD CULTURES 01/14/18 -VE FOR 48HRS. REPEAT URINE CULTURE 01/14/18 - +VE ENTEROCOCCUS FAECALIS - AMPICILLIN BLOOD CULTURE 1:2 SETS +VE SCN ? CONTAMINANT. URINE CULTURE +VE CITROBACTER/ ENTEROCOCCUS -FAECALIS. BRAIN MRI -NOTED-See report NO ICH, SIGNIFICANT VOLUME LOSS. CH ISCHEMIC CHANGES ASSESSMENT/PLAN : CONTINUE IV ZOSYN 3.375MG IV Q 8HRLY.01/14/18. F/U REPEAT URINE CULTURES. (ORDERED BY 01/18/18 ) SEEN BY AND RECOMENDATIONS NOTED. PER NEURO. Objective - Vital Signs/Intake and Output Vital Signs (last 24 hours): Temp Pulse Resp BP Pulse Ox 98.1 F 80 20 144/88 96 01/19/18 15:00 01/19/18 15:00 01/19/18 15:00 01/19/18 15:00 01/19/18 15:00 Intake and Output: 01/19/18 01/19/18 06:59 18:59 Output Total 1150 Balance -1150 - Medications Medications: Current Medications Apixaban (Eliquis) 2.5 mg PO BID [facility] Last Admin: 01/19/18 17:22 Dose: 2.5 mg Aspirin (Ecotrin) 81 mg PO DAILY [facility] Last Admin: 01/19/18 09:05 Dose: 81 mg Docusate Sodium (Colace) 100 mg PO BID [facility] Last Admin: 01/19/18 17:23 Dose: 100 mg Furosemide (Lasix) 40 mg PO DAILY [facility] Last Admin: 01/19/18 09:09 Dose: 40 mg Glipizide (Glucotrol) 5 mg PO BID [facility] Last Admin: 01/19/18 17:23 Dose: 5 mg Piperacillin Sod/Tazobactam Sod (Zosyn 3.375 Gm Iv Premix) 3.375 gm in 50 mls @ 100 mls/hr IVPB Q8H [facility] PRN Reason: Protocol Last Admin: 01/19/18 13:19 Dose: 100 mls/hr Insulin Human Regular (Novolin R) 0 unit SC ACHS [facility] PRN Reason: Protocol Last Admin: 01/19/18 12:44 Dose: 5 unit Lactulose (Enulose) 20 gm PO BID [facility] Last Admin: 01/19/18 17:23 Dose: 20 gm Losartan Potassium (Cozaar) 100 mg PO DAILY [facility] Last Admin: 01/19/18 09:05 Dose: 100 mg [facility] Last Admin: 01/19/18 17:23 Dose: 500 mg Pregabalin (Lyrica) 50 mg PO DAILY [facility] Last Admin: 01/19/18 09:05 Dose: 50 mg Rosuvastatin Calcium (Crestor) 5 mg PO HS [facility] Last Admin: 01/18/18 21:43 Dose: 5 mg Vitamin B Complex/Vit C/Folic Acid (Nephro-Ale) 1 tab PO 0800 [facility] Last Admin: 01/19/18 08:24 Dose: 1 tab - Labs Labs: 01/18/18 06:15 01/19/18 07:49 PT 12.6 SECONDS (9.7-12.2) H 01/12/18 15:37 INR 1.2 01/12/18 15:37 APTT 38 SECONDS (21-34) H 01/12/18 15:37 Assessment and Plan (1) Gram-positive bacteremia Status: Acute (2) UTI (urinary tract infection) due to urinary indwelling catheter Status: Acute (3) Leukocytosis Status: Acute (4) Weakness Status: Acute (5) Acute CVA (cerebrovascular accident) Status: Acute (6) CAD (coronary artery disease) Status: Acute (7) Diabetes mellitus Status: Chronic (8) HTN (hypertension) Status: Chronic (9) Sleep apnea Status: Acute (10) Chronic constipation Status: Acute (11) Urinary retention Status: Acute
[2018-01-20] MEDS: Piperacill/Tazo 3.375gm in Dex 3.375 GM/50 ML BAG IVPB SCH ×3 (06:33→21:50)
[2018-01-20] MEDS: (Novolin R) Insulin Human Regular 100 units/ml vial SC SCH ×4 (08:47→21:47)
[2018-01-20] MEDS: Multivitamin Vitamin B Complex (Nephro-Vite) Tab PO SCH (08:47)
--- NOTE | 2018-01-20 13:23 | CP.PCM.PN ---
Subjective - Date & Time of Evaluation Date of Evaluation: 01/20/18 Time of Evaluation: 13:22 - Subjective Subjective: Pulmonary Follow up, Covering Dr Guzmán The patient was Seen/interviewed and examined by me at the bedside, Medical records reviewed and Management issues were discussed and formulated with the house staff. Events reviewed Patient feeling better today No chest pain, Dyspnea Patient awake, comfortable, NAD Afebrile No wheezing on Exam Sleep study as outpatient Objective - Vital Signs/Intake and Output Vital Signs (last 24 hours): Temp Pulse Resp BP Pulse Ox 98.0 F 68 20 152/78 H 96 01/20/18 08:00 01/20/18 08:00 01/20/18 08:00 01/20/18 09:10 01/20/18 08:00 Intake and Output: 01/20/18 01/20/18 06:59 18:59 Output Total 700 Balance -700 - Medications Medications: Current Medications Apixaban (Eliquis) 2.5 mg PO BID [facility] Last Admin: 01/20/18 09:10 Dose: 2.5 mg Aspirin (Ecotrin) 81 mg PO DAILY [facility] Last Admin: 01/20/18 09:10 Dose: 81 mg Docusate Sodium (Colace) 100 mg PO BID [facility] Last Admin: 01/20/18 09:10 Dose: 100 mg Furosemide (Lasix) 40 mg PO DAILY [facility] Last Admin: 01/20/18 09:10 Dose: 40 mg Glipizide (Glucotrol) 5 mg PO BID [facility] Last Admin: 01/20/18 09:10 Dose: 5 mg Piperacillin Sod/Tazobactam Sod (Zosyn 3.375 Gm Iv Premix) 3.375 gm in 50 mls @ 100 mls/hr IVPB Q8H [facility] PRN Reason: Protocol Last Admin: 01/20/18 13:06 Dose: 100 mls/hr Insulin Human Regular (Novolin R) 0 unit SC ACHS [facility] PRN Reason: Protocol Last Admin: 01/20/18 13:06 Dose: 4 unit Lactulose (Enulose) 20 gm PO BID [facility] Last Admin: 01/20/18 09:57 Dose: 20 gm Losartan Potassium (Cozaar) 100 mg PO DAILY [facility] Last Admin: 01/20/18 09:10 Dose: 100 mg [facility] Last Admin: 01/20/18 08:47 Dose: 500 mg Pregabalin (Lyrica) 50 mg PO DAILY [facility] Last Admin: 01/20/18 09:10 Dose: 50 mg Rosuvastatin Calcium (Crestor) 5 mg PO HS [facility] Last Admin: 01/19/18 21:36 Dose: 5 mg Vitamin B Complex/Vit C/Folic Acid (Nephro-Ale) 1 tab PO 0800 [facility] Last Admin: 01/20/18 08:47 Dose: 1 tab - Labs Labs: 01/18/18 06:15 01/19/18 07:49 PT 12.6 SECONDS (9.7-12.2) H 01/12/18 15:37 INR 1.2 01/12/18 15:37 APTT 38 SECONDS (21-34) H 01/12/18 15:37 - Constitutional Appears: Well, Non-toxic - Head Exam Head Exam: ATRAUMATIC, NORMAL INSPECTION - ENT Exam ENT Exam: Mucous Membranes Moist - Neck Exam Neck Exam: Full ROM - Respiratory Exam Respiratory Exam: Clear to Ausculation Bilateral, NORMAL BREATHING PATTERN. absent: Accessory Muscle Use, Chest Wall Tenderness, Decreased Breath Sounds - Cardiovascular Exam Cardiovascular Exam: REGULAR RHYTHM, RRR, +S1, +S2. absent: JVD - Extremities Exam Extremities Exam: Full ROM, Normal Capillary Refill, Normal Inspection. absent : Calf Tenderness, Joint Swelling, Pedal Edema, Tenderness - Back Exam Back Exam: absent: CVA tenderness (L), CVA tenderness (R) - Neurological Exam Neurological Exam: Alert, Awake, CN II-XII Intact, Normal Gait, Oriented x3. absent: Altered, Motor Sensory Deficit Assessment and Plan (1) Sleep apnea Assessment & Plan: Continue CPAP of 10 cm at night sleep study as out patient Status: Acute
--- NOTE | 2018-01-20 22:27 | CP.PCM.PN ---
Subjective - Date & Time of Evaluation Date of Evaluation: 01/20/18 Time of Evaluation: 22:27 - Subjective Subjective: CHIEF COMPLAINTS TODAY : AFEBRILE, NO NEW COMPLAINTS seen by PULMONARY. S/P FOLY CHANGED 01/14/18 ROS. HEENT : N. Resp : No cough, wheezing ,pleuritic CP ,or hemoptysis Cardio : No anginal CP, PND, orthopnea, palpitation GI : No abd.pain, n/v ,diarrhea or GI bleeding . LUMBER SCALER : No headache, vertigo, focal deficit. Musculoskel : No joint swelling , Derm : No rash Psych : Normal affect. Ext : No swelling ,calf pain PE. Pt. is alert awake in no distress. V.S As noted in the chart Head ,ear nose,throat and eyes : Normal. Neck : Supple with normal carotids. Lungs: Clear air entry. Heart : S1 & S2 normal with S4. No murmur. Abd : Soft non tender with normal bowel sounds. Neuro : Moves all ext. with no localized deficit. Ext : No edema with intact pulses.Non tender calves Derm : No rashes or decubitus ulcer. LABS/RADIOLOGY: psa 1.98 N 01/18/18 WBC 9.7 improving Creatinine 1.8/bun 31 REPEAT URINE CULTURE 01/19---VE GROWTH REPEAT BLOOD CULTURES 01/14/18 -VE FOR 48HRS. REPEAT URINE CULTURE 01/14/18 - +VE ENTEROCOCCUS FAECALIS - AMPICILLIN BLOOD CULTURE 1:2 SETS +VE SCN ? CONTAMINANT. URINE CULTURE +VE CITROBACTER/ ENTEROCOCCUS -FAECALIS. BRAIN MRI -NOTED-See report NO ICH, SIGNIFICANT VOLUME LOSS. CH ISCHEMIC CHANGES ASSESSMENT/PLAN : CONTINUE IV ZOSYN 3.375MG IV Q 8HRLY.01/14/18. DC IV ZOSYN IN AM 01/21/18. PLANNING A TRIAL OF VOIDING AFTER INCREASE IN ACTIVITY. PT WILL NEED PT VERY MUCH DECONDITIONED. PT TO BE EVALUATED BY PT IN AM PLEASE. SEEN BY AND RECOMENDATIONS NOTED. PER NEURO. Objective - Vital Signs/Intake and Output Vital Signs (last 24 hours): Temp Pulse Resp BP Pulse Ox 98.1 F 84 20 154/79 H 96 01/20/18 15:55 01/20/18 16:00 01/20/18 15:55 01/20/18 15:55 01/20/18 15:55 Intake and Output: 18 18 18:59 06:59 Intake Total 350 Output Total 1200 Balance -850 - Medications Medications: Current Medications Apixaban (Eliquis) 2.5 mg PO BID [facility] Last Admin: 01/20/18 18:32 Dose: 2.5 mg Aspirin (Ecotrin) 81 mg PO DAILY [facility] Last Admin: 01/20/18 09:10 Dose: 81 mg Docusate Sodium (Colace) 100 mg PO BID [facility] Last Admin: 01/20/18 18:32 Dose: 100 mg Furosemide (Lasix) 40 mg PO DAILY [facility] Last Admin: 01/20/18 09:10 Dose: 40 mg Glipizide (Glucotrol) 5 mg PO BID [facility] Last Admin: 01/20/18 19:03 Dose: 5 mg Piperacillin Sod/Tazobactam Sod (Zosyn 3.375 Gm Iv Premix) 3.375 gm in 50 mls @ 100 mls/hr IVPB Q8H [facility] PRN Reason: Protocol Last Admin: 01/20/18 21:50 Dose: 100 mls/hr Insulin Human Regular (Novolin R) 0 unit SC ACHS [facility] PRN Reason: Protocol Last Admin: 01/20/18 21:47 Dose: 2 unit Lactulose (Enulose) 20 gm PO BID [facility] Last Admin: 01/20/18 18:32 Dose: 20 gm Losartan Potassium (Cozaar) 100 mg PO DAILY [facility] Last Admin: 01/20/18 09:10 Dose: 100 mg Metformin HCl (Glucophage) 500 mg PO BIDCC [facility] Last Admin: 01/20/18 18:32 Dose: 500 mg Pregabalin (Lyrica) 50 mg PO DAILY [facility] Last Admin: 01/20/18 09:10 Dose: 50 mg Rosuvastatin Calcium (Crestor) 5 mg PO HS [facility] Last Admin: 01/20/18 21:50 Dose: 5 mg Vitamin B Complex/Vit C/Folic Acid (Nephro-Ale) 1 tab PO 0800 [facility] Last Admin: 01/20/18 08:47 Dose: 1 tab - Labs Labs: 01/18/18 06:15 01/19/18 07:49 PT 12.6 SECONDS (9.7-12.2) H 01/12/18 15:37 INR 1.2 01/12/18 15:37 APTT 38 SECONDS (21-34) H 01/12/18 15:37 Assessment and Plan (1) Gram-positive bacteremia Status: Acute (2) UTI (urinary tract infection) due to urinary indwelling catheter Status: Acute (3) Leukocytosis Status: Acute (4) Weakness Status: Acute (5) Acute CVA (cerebrovascular accident) Status: Acute (6) CAD (coronary artery disease) Status: Acute (7) Diabetes mellitus Status: Chronic (8) HTN (hypertension) Status: Chronic (9) Sleep apnea Status: Acute (10) Chronic constipation Status: Acute (11) Urinary retention Status: Acute
[2018-01-21] MEDS: Piperacill/Tazo 3.375gm in Dex 3.375 GM/50 ML BAG IVPB SCH ×3 (06:10→21:05)
--- NOTE | 2018-01-21 06:56 | PN ---
DATE: 01/20/2018 SUBJECTIVE: The patient is a 72-year-old male. The patient was seen and examined at the bedside on 01/20/2018. Looking comfortable. Complaining about constipation. is on the bedside. No fever, no chills, no cough. No nausea, vomiting, or diarrhea. No wheezing. Feeling better. No dyspnea. PHYSICAL EXAMINATION: VITAL SIGNS: Temperature 98, pulse 58, respiratory rate 20, blood pressure 152/78, pulse oximetry 96. HEENT: Head normocephalic and atraumatic. Eyes PERRLA. Extraocular muscles are intact. Conjunctivae clear. Nose patent. Mucous membrane moist. NECK: Supple. No carotid bruits. No JVD or thyromegaly. CHEST: Bilaterally symmetrical. HEART: S1 and S2 positive. LUNGS: Clear to auscultation. ABDOMEN: Soft. Bowel sounds present. No organomegaly. EXTREMITIES: No edema, no cyanosis. NEUROLOGIC: The patient is awake and alert. Follows simple commands. MEDICATIONS: Eliquis, Ecotrin, Colace, Lasix, Zosyn, insulin, Cozaar, metformin, Lyrica, Crestor. LABORATORY DATA: White blood cell 9.7, hemoglobin 11.7, hematocrit 34.2, platelets 274. Sodium 137, potassium 7.5, BUN 31, creatinine 1.8, glucose 273. ASSESSMENT AND PLAN: The patient is a 72-year-old male with anemia, renal insufficiency, hyperglycemia. Has constipation, is on stool softener, has Carr catheter. Urologist is on the case. Has mild acute kidney injury, likely hemodynamically stable. Diabetes, hypertensive chronic kidney disease. No acute need for renal replacement therapy at this time. Hypertension is controlled with medications. No change in the Lasix. Housekeeper stopped the metformin. Gastrointestinal and deep venous thrombosis prophylaxis. Repeat labs. We will follow up. Zuleima Jackson MD
[2018-01-21] MEDS: Multivitamin Vitamin B Complex (Nephro-Vite) Tab PO SCH (08:21)
[2018-01-21] MEDS: (Novolin R) Insulin Human Regular 100 units/ml vial SC SCH ×4 (08:21→22:03)
--- NOTE | 2018-01-21 12:44 | PCM.URO ---
Urology Progress Note - Subjective Abdominal Pain: Yes (lower and mid abd pain, mild) Flank Pain: No Nausea: No Vomiting: No Voiding Well: No Dysuria: No Hematuria: No Other: taking well po - Objective Lab Studies: Reviewed (Urine culture: enterococcus, citrobacter. Repeat urine culture: no growth PSA= 1.61) Lab Results Last 24 Hours: Laboratory Results - last 24 hr 01/20/18 01/20/18 01/21/18 17:20 21:23 02:02 POC Glucose (mg/dL) 299 H 368 H 344 H 01/21/18 01/21/18 06:32 11:23 POC Glucose (mg/dL) 323 H 390 H Intake & Output: Intake & Output 01/20/18 01/21/18 01/21/18 18:59 06:59 18:59 Intake Total 350 470 Output Total 1200 1600 Balance -850 -1130 Intake: Intake, IV Amount 50 100 Left 50 100 Oral 300 370 Output: Urine 1200 1600 Urethral (Carr) 1200 1600 Other: # Bowel Movements 0 Vital Signs: Vital Signs - 24 hr 01/20/18 01/20/18 01/20/18 15:55 16:00 23:25 Temperature 98.1 F 98.2 F Pulse Rate 83 84 79 Respiratory 20 20 Rate Blood Pressure 154/79 H 129/77 O2 Sat by Pulse 96 97 Oximetry 01/20/18 01/21/18 01/21/18 23:35 07:06 08:50 Temperature 97.5 F L Pulse Rate 75 72 79 Respiratory 20 Rate Blood Pressure 140/78 O2 Sat by Pulse 96 Oximetry 01/21/18 01/21/18 09:45 12:00 Temperature Pulse Rate 83 Respiratory Rate Blood Pressure 138/75 O2 Sat by Pulse Oximetry - Physical Exam Abdominal Exam: Soft, Non-Tender (overweight). absent: Non-Distended Back: No CVA Tenderness Genitalia: Without Inflammation Urinary Catheter Draining Well: Yes Urine Color: Clear - Plan Catheter Care: Yes Intake & Output: Yes Additional Information: IMP: uti. retention. poss overactive bladder hx. Hx of prostate ca. Rec: catheter in palce. trial of voiding t/f. Possible cystoscopy and urodynamic testing. Monitor PSA - Date & Time of Note Date: 01/21/18 Time: 12:35
[2018-01-21] MEDS ORDERED: Ergocalciferol 50,000 Intl Units Cap PO SCH (13:00)
--- NOTE | 2018-01-21 14:29 | CP.PCM.PN ---
Subjective - Date & Time of Evaluation Date of Evaluation: 01/21/18 Time of Evaluation: 14:29 Objective - Vital Signs/Intake and Output Vital Signs (last 24 hours): Temp Pulse Resp BP Pulse Ox 97.5 F L 83 20 138/75 96 01/21/18 07:06 01/21/18 12:00 01/21/18 07:06 01/21/18 09:45 01/21/18 07:06 Intake and Output: 01/21/18 01/21/18 06:59 18:59 Intake Total 470 Output Total 1600 200 Balance -1130 -200 - Medications Medications: Current Medications Apixaban (Eliquis) 2.5 mg PO BID [facility] Last Admin: 01/21/18 09:32 Dose: 2.5 mg Aspirin (Ecotrin) 81 mg PO DAILY [facility] Last Admin: 01/21/18 09:32 Dose: 81 mg Docusate Sodium (Colace) 100 mg PO TID [facility] Last Admin: 01/21/18 13:38 Dose: 100 mg Ergocalciferol (Drisdol 50,000 Intl Units Cap) 1 cap PO Q7D [facility] Last Admin: 01/21/18 13:38 Dose: 1 cap Ferrous Gluconate (Fergon) 324 mg PO TID [facility] Last Admin: 01/21/18 14:07 Dose: 324 mg Furosemide (Lasix) 40 mg PO DAILY [facility] Last Admin: 01/21/18 09:45 Dose: 40 mg Glipizide (Glucotrol) 5 mg PO BID [facility] Last Admin: 01/21/18 09:32 Dose: 5 mg Piperacillin Sod/Tazobactam Sod (Zosyn 3.375 Gm Iv Premix) 3.375 gm in 50 mls @ 100 mls/hr IVPB Q8H [facility] PRN Reason: Protocol Last Admin: 01/21/18 14:07 Dose: 100 mls/hr Insulin Human Regular (Novolin R) 0 unit SC ACHS [facility] PRN Reason: Protocol Last Admin: 01/21/18 12:45 Dose: 5 unit Lactulose (Enulose) 20 gm PO BID [facility] Last Admin: 01/21/18 09:32 Dose: 20 gm Losartan Potassium (Cozaar) 100 mg PO DAILY [facility] Last Admin: 01/21/18 09:32 Dose: 100 mg [facility]formin [facility] ([facility]) [facility] Last Admin: 01/21/18 08:21 Dose: 500 mg Pregabalin (Lyrica) 50 mg PO DAILY [facility] Last Admin: 01/21/18 09:32 Dose: 50 mg Rosuvastatin Calcium (Crestor) 5 mg PO HS [facility] Last Admin: 01/20/18 21:50 Dose: 5 mg Vitamin B Complex/Vit C/Folic Acid (Nephro-Ale) 1 tab PO 0800 [facility] Last Admin: 01/21/18 08:21 Dose: 1 tab - Labs Labs: 01/18/18 06:15 01/19/18 07:49 PT 12.6 SECONDS (9.7-12.2) H 01/12/18 15:37 INR 1.2 01/12/18 15:37 APTT 38 SECONDS (21-34) H 01/12/18 15:37 Assessment and Plan (1) Gram-positive bacteremia Status: Acute (2) UTI (urinary tract infection) due to urinary indwelling catheter Status: Acute (3) Leukocytosis Status: Acute (4) Weakness Status: Acute (5) Acute CVA (cerebrovascular accident) Status: Acute (6) CAD (coronary artery disease) Status: Acute (7) Diabetes mellitus Status: Chronic (8) HTN (hypertension) Status: Chronic (9) Sleep apnea Status: Acute (10) Chronic constipation Status: Acute (11) Urinary retention Status: Acute
--- NOTE | 2018-01-21 15:22 | CP.PCM.PN ---
Subjective - Date & Time of Evaluation Date of Evaluation: 01/21/18 Time of Evaluation: 15:20 - Subjective Subjective: Nephrology Consultation Note: Assessment: Stable Mild Acute Kidney Injury (N17.9) likely hemodynamic Diabetic chronic Kidney Disease (E11.22) Hypertensive Chronic Kidney Disease (I12.9) Chronic Kidney Disease (N18.3) Stage 3 with 3 gram proteinuria (R80.9) likely due to DM/HTN/obesity Anemia (D64.9), uncontrolled HTN (I12.9) CA prostate, OAB s/p botox inj, LATRELL, PVD, neuropathy, CAD s/p stent, Vit D def Plan No acute need for renal replacement therapy at this time. Hypertension control with meds as ordered. Maintain hemodynamics stable. Avoid hypotension. Patient on ARB as losartan 50 mg/day, increased to 100 mg Monitor Input/Output, daily weights and renal function with basic metabolic panel changed lasix to PO 40 mg/day will need to stop metformin once GFR <30, can continue current dose for now started nephrovite, iron and weekly Vit D daily. ID, cardiology, following, recs noted Dose meds/antibiotics for reduced GFR. Avoid fleets enema/magnesium based laxatives. Avoid nephrotoxins/NSAIDs/ iodinated contrast (unless needed emergently) Glycemic control Further work up/management as per primary team Thanks for allowing me to participate in care of your patient. Will follow patient with you. Please call if any Qs. had d/w team and Justin Leonard Office: [phone] Chief Complaint; gen weakness Reason for consult: CKD HPI: Pt is a 72 M with hx of diabetes Mellitus (15 years) with neuropathy, hypertension (years), CA prostate, OAB s/p botox inj, LATRELL, PVD, CAD s/p stent and CKD stage 3 presented with complaints of gen weakness and found ot have UTI and pulm congestion. diuresed with lasix. seen by ID and given ABx. seen by cardio and as well. renal consult for PORTIA on CKD 3 management Denies OTC/herbal meds or NSAIDs No recent iodinated contrast exposure. No obvious episodes of low BP. ROS: reports constipation and abdomen cramps with it Cardiovascular: No chest pain. Pulmonary: No shortness of breath Gastrointestinal: No nausea. No vomiting. Genitourinary: No pain while urinating. Denies blood in urine. has chaney All other negative except as mentioned in HPI. has weakness Physical Examination: General Appearance: Comfortable, in no acute respiratory distress, co-operative . obese Vitals reviewed and noted as below Head; Atraumatic, normocephalic ENT: no ulcers no thrush. Tongue is midline. Oropharynx: no rash or ulcers. EYES: Pupils are equal, round and reactive to light accommodation. Eye muscles and extraocular movement intact. Sclera is anicteric. Neck; supple no lymphadenopathy, no thyromegaly or bruit Lungs: Normal respiratory rate/effort. Breath sounds bilateral equal and clear Heart: Normal rate. s1s2 normal. No rub or gallop. Extremities: no edema. No varicose veins Neurological: Patient is alert, awake and oriented to person, place and time. No focal deficit. Strength bilateral appropriate and equal Skin: Warm and dry. Normal turgor. No rash. Palpitation: Normal elasticity for age Abdomen: Abdomen is soft. Bowel sounds +. There is no abdominal tenderness, no guarding/rigidity no organomegaly Psych: normal insight and normal affect/mood MSK: no joint tenderness or swelling. Digits and nails normal, no deformity : kidney or bladder not palpable. has chaney + Labs/imaging reviewed. Past medical history, past surgical history, family history, social history, allergy reviewed and noted as below Family hx: no hx of CKD. Rest non-contributory renal imaging WNLUA 3+ protein CAROLYNE/C3 and C4 WNL last year Objective - Vital Signs/Intake and Output Vital Signs (last 24 hours): Temp Pulse Resp BP Pulse Ox 97.5 F L 83 20 138/75 96 01/21/18 07:06 01/21/18 12:00 01/21/18 07:06 01/21/18 09:45 01/21/18 07:06 Intake and Output: 01/21/18 01/21/18 06:59 18:59 Intake Total 470 Output Total 1600 200 Balance -1130 -200 - Medications Medications: Current Medications Apixaban (Eliquis) 2.5 mg PO BID [facility] Last Admin: 01/21/18 09:32 Dose: 2.5 mg Aspirin (Ecotrin) 81 mg PO DAILY [facility] Last Admin: 01/21/18 09:32 Dose: 81 mg Docusate Sodium (Colace) 100 mg PO TID [facility] Last Admin: 01/21/18 13:38 Dose: 100 mg Ergocalciferol (Drisdol 50,000 Intl Units Cap) 1 cap PO Q7D [facility] Last Admin: 01/21/18 13:38 Dose: 1 cap Ferrous Gluconate (Fergon) 324 mg PO TID [facility] Last Admin: 01/21/18 14:07 Dose: 324 mg Furosemide (Lasix) 40 mg PO DAILY [facility] Last Admin: 01/21/18 09:45 Dose: 40 mg Glipizide (Glucotrol) 5 mg PO BID [facility] Last Admin: 01/21/18 09:32 Dose: 5 mg Piperacillin Sod/Tazobactam Sod (Zosyn 3.375 Gm Iv Premix) 3.375 gm in 50 mls @ 100 mls/hr IVPB Q8H [facility] PRN Reason: Protocol Last Admin: 01/21/18 14:07 Dose: 100 mls/hr Insulin Human Regular (Novolin R) 0 unit SC ACHS [facility] PRN Reason: Protocol Last Admin: 01/21/18 12:45 Dose: 5 unit Lactulose (Enulose) 20 gm PO BID [facility] Last Admin: 01/21/18 09:32 Dose: 20 gm Losartan Potassium (Cozaar) 100 mg PO DAILY [facility] Last Admin: 01/21/18 09:32 Dose: 100 mg Metformin HCl (Glucophage) 500 mg PO BIDCC [facility] Last Admin: 01/21/18 08:21 Dose: 500 mg Pregabalin (Lyrica) 50 mg PO DAILY [facility] Last Admin: 01/21/18 09:32 Dose: 50 mg Rosuvastatin Calcium (Crestor) 5 mg PO HS [facility] Last Admin: 01/20/18 21:50 Dose: 5 mg Vitamin B Complex/Vit C/Folic Acid (Nephro-Ale) 1 tab PO 0800 [facility] Last Admin: 01/21/18 08:21 Dose: 1 tab - Labs Labs: 01/18/18 06:15 01/19/18 07:49 PT 12.6 SECONDS (9.7-12.2) H 01/12/18 15:37 INR 1.2 01/12/18 15:37 APTT 38 SECONDS (21-34) H 01/12/18 15:37
--- NOTE | 2018-01-21 20:39 | CP.PCM.PN ---
Subjective - Date & Time of Evaluation Date of Evaluation: 01/21/18 Time of Evaluation: 20:38 - Subjective Subjective: CHIEF COMPLAINTS TODAY : AFEBRILE AAO, FOLY REMOVED FOR TRIAL OF VOIDING. 01/22/18 BY PT VOIDING BUT STATES HE IS INCONTINENT S/P FOLY CHANGED 01/14/18 ROS. HEENT : N. Resp : No cough, wheezing ,pleuritic CP ,or hemoptysis Cardio : No anginal CP, PND, orthopnea, palpitation GI : No abd.pain, n/v ,diarrhea or GI bleeding . 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 Musculoskel : No joint swelling , Derm : No rash Psych : Normal affect. Ext : No swelling ,calf pain PE. Pt. is alert awake in no distress. V.S As noted in the chart Head ,ear nose,throat and eyes : Normal. Neck : Supple with normal carotids. Lungs: Clear air entry. Heart : S1 & S2 normal with S4. No murmur. Abd : Soft non tender with normal bowel sounds. Neuro : Moves all ext. with no localized deficit. Ext : No edema with intact pulses.Non tender calves Derm : No rashes or decubitus ulcer. LABS/RADIOLOGY: psa 1.98 N 01/18/18 WBC 9.7 improving Creatinine 1.8/bun 31 REPEAT URINE CULTURE 01/19---VE GROWTH REPEAT BLOOD CULTURES 01/14/18 -VE TO DATE BLOOD CULTURE 1:2 SETS +VE SCN ? CONTAMINANT. BRAIN MRI -NOTED-See report NO ICH, SIGNIFICANT VOLUME LOSS. CH ISCHEMIC CHANGES ASSESSMENT/PLAN : CONTINUE IV ZOSYN 3.375MG IV Q 8HRLY.01/14/18. DC IV ZOSYN IN AM 01/21/18. ON TRIAL OF VOIDING PT WILL NEED PT VERY MUCH DECONDITIONED. PT TO BE EVALUATED BY PT IN AM PLEASE. SEEN BY AND RECOMENDATIONS NOTED. PER NEURO. Objective - Vital Signs/Intake and Output Vital Signs (last 24 hours): Temp Pulse Resp BP Pulse Ox 97.8 F 98 H 20 164/89 H 97 01/21/18 15:00 01/21/18 16:38 01/21/18 15:00 01/21/18 15:00 01/21/18 15:00 Intake and Output: 09/17/18 09/18/18 18:59 06:59 Intake Total 50 Output Total 400 Balance -350 - Medications Medications: Current Medications Apixaban (Eliquis) 2.5 mg PO BID [facility] Last Admin: 01/21/18 18:01 Dose: 2.5 mg Aspirin (Ecotrin) 81 mg PO DAILY [facility] Last Admin: 01/21/18 09:32 Dose: 81 mg Docusate Sodium (Colace) 100 mg PO TID [facility] Last Admin: 01/21/18 17:59 Dose: 100 mg Ergocalciferol (Drisdol 50,000 Intl Units Cap) 1 cap PO Q7D [facility] Last Admin: 01/21/18 13:38 Dose: 1 cap Ferrous Gluconate (Fergon) 324 mg PO TID [facility] Last Admin: 01/21/18 18:01 Dose: 324 mg Furosemide (Lasix) 40 mg PO DAILY [facility] Last Admin: 01/21/18 09:45 Dose: 40 mg Glipizide (Glucotrol) 5 mg PO BID [facility] Last Admin: 01/21/18 18:00 Dose: 5 mg Piperacillin Sod/Tazobactam Sod (Zosyn 3.375 Gm Iv Premix) 3.375 gm in 50 mls @ 100 mls/hr IVPB Q8H [facility] PRN Reason: Protocol Last Admin: 01/21/18 14:07 Dose: 100 mls/hr Insulin Human Regular (Novolin R) 0 unit SC ACHS [facility] PRN Reason: Protocol Last Admin: 01/21/18 18:01 Dose: 4 unit Lactulose (Enulose) 20 gm PO BID [facility] Last Admin: 01/21/18 17:59 Dose: 20 gm Losartan Potassium (Cozaar) 100 mg PO DAILY [facility] Last Admin: 18 09:32 Dose: 100 mg Metformin HCl (Glucophage) 500 mg PO BIDCC [facility] Last Admin: 01/21/18 17:59 Dose: 500 mg Pregabalin (Lyrica) 50 mg PO DAILY [facility] Last Admin: 01/21/18 09:32 Dose: 50 mg Rosuvastatin Calcium (Crestor) 5 mg PO HS [facility] Last Admin: 18 21:50 Dose: 5 mg Vitamin B Complex/Vit C/Folic Acid (Nephro-Ale) 1 tab PO 0800 [facility] Last Admin: 01/21/18 08:21 Dose: 1 tab - Labs Labs: 01/18/18 06:15 01/19/18 07:49 PT 12.6 SECONDS (9.7-12.2) H 01/12/18 15:37 INR 1.2 01/12/18 15:37 APTT 38 SECONDS (21-34) H 01/12/18 15:37 Assessment and Plan (1) Gram-positive bacteremia Status: Acute (2) UTI (urinary tract infection) due to urinary indwelling catheter Status: Acute (3) Leukocytosis Status: Acute (4) Weakness Status: Acute (5) Acute CVA (cerebrovascular accident) Status: Acute (6) CAD (coronary artery disease) Status: Acute (7) Diabetes mellitus Status: Chronic (8) HTN (hypertension) Status: Chronic (9) Sleep apnea Status: Acute (10) Chronic constipation Status: Acute (11) Urinary retention Status: Acute
--- NOTE | 2018-01-22 03:01 | PN ---
DATE: 01/21/2018 SUBJECTIVE: The patient was seen and examined at the bedside, looking comfortable. No nausea, vomiting or diarrhea. No hematuria, no hematochezia. No swelling of the leg. No chest pain. No palpitation. No headache, no dizziness. PHYSICAL EXAMINATION: VITAL SIGNS: Temperature 97.8, pulse 98, respiratory rate 20, blood pressure 164/89, pulse oximetry 97. HEENT: Head is normocephalic, atraumatic. Eyes PERRLA. Extraocular muscles intact. Conjunctivae clear. Nose patent. Mucous membranes moist. NECK: Supple. No carotid bruits. No JVD or thyromegaly. CHEST: Bilaterally symmetrical. HEART: S1, S2 positive. LUNGS: Clear to auscultation. ABDOMEN: Soft. Bowel sounds present. No organomegaly. EXTREMITIES: No edema. No cyanosis. NEUROLOGIC: The patient is awake, alert. Moving all 4 extremities. No focal deficits. MEDICATIONS: Eliquis, Ecotrin, Colace, vitamin D, Fergon, Lasix, Glucotrol, Zosyn, insulin, Enulose, losartan, metformin, Lyrica, Crestor. LABORATORY DATA: White blood cell 9.7, hemoglobin 11.7, hematocrit 34.3, platelets 274. Sodium 137, potassium 4.5, BUN 31, creatinine noted , glucose 273. ASSESSMENT AND PLAN: Mr. Jules Campo is a 72 years old male with anemia, renal insufficiency, hyperglycemia, gram positive bacteremia; getting antibiotics. Urinary tract infection due to urinary indwelling catheter, urologist is on the case. Leukocytosis is trending down. Weakness improving due to cerebrovascular accident stable, coronary artery disease, diabetes mellitus, hypertension, sleep apnea syndrome, chronic constipation getting multiple stool softener, urinary retention, having Carr catheter, as per urologist we will keep Carr's catheter. Antibiotics as per Infectious Disease. GI and DVT prophylaxis. Repeat labs. Zuleima Jackson MD [facility]Jackson
[2018-01-22] MEDS: (Novolin R) Insulin Human Regular 100 units/ml vial SC SCH ×4 (08:30→22:13)
[2018-01-22] MEDS: Multivitamin Vitamin B Complex (Nephro-Vite) Tab PO SCH (09:00)
--- NOTE | 2018-01-22 11:37 | CP.PCM.PN ---
Subjective - Date & Time of Evaluation Date of Evaluation: 01/22/18 Time of Evaluation: 11:36 - Subjective Subjective: Nephrology Consultation Note: Assessment: Stable Mild Acute Kidney Injury (N17.9) likely hemodynamic Diabetic chronic Kidney Disease (E11.22) Hypertensive Chronic Kidney Disease (I12.9) Chronic Kidney Disease (N18.3) Stage 3 with 3 gram proteinuria (R80.9) likely due to DM/HTN/obesity Anemia (D64.9), uncontrolled HTN (I12.9) CA prostate, OAB s/p botox inj, LATRELL, PVD, neuropathy, CAD s/p stent, Vit D def Plan No acute need for renal replacement therapy at this time. Hypertension control with meds as ordered. Maintain hemodynamics stable. Avoid hypotension. Patient on ARB as losartan 50 mg/day, increased to 100 mg. added low dose coreg 3.125 mg bid as BP on higher side and hx of CAD as well. Monitor Input/Output, daily weights and renal function with basic metabolic panel changed lasix to PO 40 mg/day will need to stop metformin once GFR <30, can continue current dose for now started nephrovite, iron (stopped due to constipation) and weekly Vit D daily. ID, cardiology, following, recs noted Dose meds/antibiotics for reduced GFR. Avoid fleets enema/magnesium based laxatives. Avoid nephrotoxins/NSAIDs/ iodinated contrast (unless needed emergently) Glycemic control Further work up/management as per primary team pt stable for d/c from renal perspective when planned with outpt renal follow up 1-2 weeks Thanks for allowing me to participate in care of your patient. Will follow patient with you. Please call if any Qs. had d/w team and Dr Justin Leonard Office: [phone] Chief Complaint; gen weakness Reason for consult: CKD HPI: Pt is a 72 M with hx of diabetes Mellitus (15 years) with neuropathy, hypertension (years), CA prostate, OAB s/p botox inj, LATRELL, PVD, CAD s/p stent and CKD stage 3 presented with complaints of gen weakness and found ot have UTI and pulm congestion. diuresed with lasix. seen by ID and given ABx. seen by cardio and as well. renal consult for PORTIA on CKD 3 management Denies OTC/herbal meds or NSAIDs No recent iodinated contrast exposure. No obvious episodes of low BP. ROS: reports constipation resolved. want to go home. pending rehab placement though Cardiovascular: No chest pain. Pulmonary: No shortness of breath Gastrointestinal: No nausea. No vomiting. Genitourinary: No pain while urinating. Denies blood in urine. All other negative except as mentioned in HPI. has weakness Physical Examination: General Appearance: Comfortable, in no acute respiratory distress, co-operative . obese Vitals reviewed and noted as below Head; Atraumatic, normocephalic ENT: no ulcers no thrush. Tongue is midline. Oropharynx: no rash or ulcers. EYES: Pupils are equal, round and reactive to light accommodation. Eye muscles and extraocular movement intact. Sclera is anicteric. Neck; supple no lymphadenopathy, no thyromegaly or bruit Lungs: Normal respiratory rate/effort. Breath sounds bilateral equal and clear Heart: Normal rate. s1s2 normal. No rub or gallop. Extremities: no edema. No varicose veins Neurological: Patient is alert, awake and oriented to person, place and time. No focal deficit. Strength bilateral appropriate and equal Skin: Warm and dry. Normal turgor. No rash. Palpitation: Normal elasticity for age Abdomen: Abdomen is soft. Bowel sounds +. There is no abdominal tenderness, no guarding/rigidity no organomegaly Psych: normal insight and normal affect/mood MSK: no joint tenderness or swelling. Digits and nails normal, no deformity : kidney or bladder not palpable. has chaney + Labs/imaging reviewed. Past medical history, past surgical history, family history, social history, allergy reviewed and noted as below Family hx: no hx of CKD. Rest non-contributory renal imaging WNLUA 3+ protein CAROLYNE/C3 and C4 WNL last year Objective - Vital Signs/Intake and Output Vital Signs (last 24 hours): Temp Pulse Resp BP Pulse Ox 98.2 F 92 H 20 159/73 H 92 L 01/21/18 23:14 01/22/18 10:17 01/21/18 23:14 01/22/18 10:19 01/22/18 08:48 Intake and Output: 01/22/18 01/22/18 06:59 18:59 Intake Total 450 240 Balance 450 240 - Medications Medications: Current Medications Apixaban (Eliquis) 2.5 mg PO BID [facility] Last Admin: 01/22/18 10:20 Dose: 2.5 mg Aspirin (Ecotrin) 81 mg PO DAILY [facility] Last Admin: 01/22/18 10:27 Dose: 81 mg Carvedilol (Coreg) 3.125 mg PO BID [facility] Last Admin: 01/22/18 11:10 Dose: 3.125 mg Docusate Sodium (Colace) 100 mg PO TID [facility] Last Admin: 01/22/18 10:19 Dose: 100 mg Ergocalciferol (Drisdol 50,000 Intl Units Cap) 1 cap PO Q7D [facility] Last Admin: 01/21/18 13:38 Dose: 1 cap Furosemide (Lasix) 40 mg PO DAILY [facility] Last Admin: 01/22/18 10:19 Dose: 40 mg Glipizide (Glucotrol) 5 mg PO BID [facility] Last Admin: 01/22/18 10:18 Dose: 5 mg Insulin Human Regular (Novolin R) 0 unit SC [facility] PRN Reason: Protocol Last Admin: 01/22/18 08:30 Dose: 3 unit Lactulose (Enulose) 20 gm PO BID [facility] Last Admin: 01/22/18 10:27 Dose: 20 gm Losartan Potassium (Cozaar) 100 mg PO DAILY [facility] Last Admin: 01/22/18 10:20 Dose: 100 mg [facility]) [facility] Last Admin: 01/22/18 09:00 Dose: 500 mg Pregabalin (Lyrica) 50 mg PO DAILY [facility] Last Admin: 01/22/18 10:19 Dose: 50 mg Rosuvastatin Calcium (Crestor) 5 mg PO HS [facility] Last Admin: 01/21/18 21:05 Dose: 5 mg Vitamin B Complex/Vit C/Folic Acid (Nephro-Ale) 1 tab PO 0800 [facility] Last Admin: 01/22/18 09:00 Dose: 1 tab - Labs Labs: 01/18/18 06:15 01/19/18 07:49 PT 12.6 SECONDS (9.7-12.2) H 01/12/18 15:37 INR 1.2 01/12/18 15:37 APTT 38 SECONDS (21-34) H 01/12/18 15:37
--- NOTE | 2018-01-22 13:20 | CP.PCM.PN ---
Subjective - Date & Time of Evaluation Date of Evaluation: 01/22/18 Time of Evaluation: 13:20 - Subjective Subjective: CHIEF COMPLAINTS TODAY : AFEBRILE AAO, FOLY REMOVED FOR TRIAL OF VOIDING. 01/22/18 BY PT VOIDING OK ROS. HEENT : N. Resp : No cough, wheezing ,pleuritic CP ,or hemoptysis Cardio : No anginal CP, PND, orthopnea, palpitation GI : No abd.pain, n/v ,diarrhea or GI bleeding . 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 Musculoskel : No joint swelling , Derm : No rash Psych : Normal affect. Ext : No swelling ,calf pain PE. Pt. is alert awake in no distress. V.S As noted in the chart Head ,ear nose,throat and eyes : Normal. Neck : Supple with normal carotids. Lungs: Clear air entry. Heart : S1 & S2 normal with S4. No murmur. Abd : Soft non tender with normal bowel sounds. Neuro : Moves all ext. with no localized deficit. Ext : No edema with intact pulses.Non tender calves Derm : No rashes or decubitus ulcer. LABS/RADIOLOGY: psa 1.98 N 01/18/18 WBC 9.7 improving Creatinine 1.8/bun 31 REPEAT URINE CULTURE 01/19---VE GROWTH REPEAT BLOOD CULTURES 01/14/18 -VE TO DATE BLOOD CULTURE 1:2 SETS +VE SCN ? CONTAMINANT. BRAIN MRI -NOTED-See report NO ICH, SIGNIFICANT VOLUME LOSS. CH ISCHEMIC CHANGES ASSESSMENT; URINARY RETENTION s/p Foly removal UTI.(Enterococcus faecalis ) DM-2 HX TURP. HX MULTIFOCAL CVA GAIT INSTABILITY/WEAKNESS CAD/ W drug-eluting stent x1 Chronic Constipation. PLAN : CONTINUE IV ZOSYN 3.375MG IV Q 8HRLY.01/14/18. DC IV ZOSYN IN AM 01/22/18. ON TRIAL OF VOIDING PER . F/U FEVER CURVE AFTER DC ABX. PT WILL NEED PT VERY MUCH DECONDITIONED. CASE DISCUSSED WITH DR HENRY. PMD. Objective - Vital Signs/Intake and Output Vital Signs (last 24 hours): Temp Pulse Resp BP Pulse Ox 98.2 F 92 H 20 159/73 H 92 L 01/21/18 23:14 01/22/18 10:17 01/21/18 23:14 01/22/18 10:19 01/22/18 08:48 Intake and Output: 01/22/18 01/22/18 06:59 18:59 Intake Total 450 240 Balance 450 240 - Medications Medications: Current Medications Apixaban (Eliquis) 2.5 mg PO BID [facility] Last Admin: 01/22/18 10:20 Dose: 2.5 mg Aspirin (Ecotrin) 81 mg PO DAILY [facility] Last Admin: 01/22/18 10:27 Dose: 81 mg Carvedilol (Coreg) 3.125 mg PO BID [facility] Last Admin: 01/22/18 11:10 Dose: 3.125 mg Docusate Sodium (Colace) 100 mg PO TID [facility] Last Admin: 01/22/18 10:19 Dose: 100 mg Ergocalciferol (Drisdol 50,000 Intl Units Cap) 1 cap PO Q7D [facility] Last Admin: 01/21/18 13:38 Dose: 1 cap Furosemide (Lasix) 40 mg PO DAILY [facility] Last Admin: 01/22/18 10:19 Dose: 40 mg Glipizide (Glucotrol) 5 mg PO BID [facility] Last Admin: 01/22/18 10:18 Dose: 5 mg Insulin Human Regular (Novolin R) 0 unit SC [facility] PRN Reason: Protocol Last Admin: 01/22/18 12:30 Dose: 4 unit Lactulose (Enulose) 20 gm PO BID [facility] Last Admin: 01/22/18 10:27 Dose: 20 gm Losartan Potassium (Cozaar) 100 mg PO DAILY [facility] Last Admin: 01/22/18 10:20 Dose: 100 mg Metformin HCl (Glucophage) 500 mg PO BIDCC [facility] Last Admin: 01/22/18 09:00 Dose: 500 mg Pregabalin (Lyrica) 50 mg PO DAILY [facility] Last Admin: 01/22/18 10:19 Dose: 50 mg Rosuvastatin Calcium (Crestor) 5 mg PO HS [facility] Last Admin: 01/21/18 21:05 Dose: 5 mg Vitamin B Complex/Vit C/Folic Acid (Nephro-Ale) 1 tab PO 0800 [facility] Last Admin: 01/22/18 09:00 Dose: 1 tab - Labs Labs: 01/18/18 06:15 01/19/18 07:49 PT 12.6 SECONDS (9.7-12.2) H 01/12/18 15:37 INR 1.2 01/12/18 15:37 APTT 38 SECONDS (21-34) H 01/12/18 15:37 Assessment and Plan (1) UTI (urinary tract infection) due to urinary indwelling catheter Status: Acute (2) Urinary retention Assessment & Plan: S/P FOLYS REMOVAL PT VOIDING WELL. Status: Acute (3) Gram-positive bacteremia Assessment & Plan: BLOOD CULTURE1:2 SETS +VE SCN ? CONTAMINANT. REPEAT BLOOD CULTURES 2 :2 SETS -VE. PT DOES NOT HAVE BACTEREMIA BUT SEPSIS SEC. TO .SOURCE. Status: Acute (4) Leukocytosis Status: Acute (5) Weakness Status: Acute (6) Acute CVA (cerebrovascular accident) Status: Acute (7) CAD (coronary artery disease) Status: Acute (8) Diabetes mellitus Status: Chronic (9) HTN (hypertension) Status: Chronic (10) Sleep apnea Status: Acute (11) Chronic constipation Status: Acute
--- NOTE | 2018-01-23 03:00 | PN ---
DATE: 01/22/2018 SUBJECTIVE: The patient was seen and examined at the bedside on 01/22/2018. is sitting at the bedside. Looking comfortable. No more constipation. No nausea, vomiting or diarrhea. Carr catheter is out. No headache. No dizziness. No chest pain or palpitations. PHYSICAL EXAMINATION: VITAL SIGNS: Temperature 98.2, pulse 92, respiratory rate 20, blood pressure 115/73, pulse oximetry 92. HEENT: Head is normocephalic and atraumatic. Eyes PERRLA. Extraocular muscles are intact. Conjunctivae clear. Nose patent. Mucous membrane moist. NECK: Supple. No carotid bruits. No JVD or thyromegaly. CHEST: Bilaterally symmetrical. HEART: S1 and S2 positive. LUNGS: Clear to auscultation. ABDOMEN: Soft. Bowel sounds present. No organomegaly. EXTREMITIES: No edema. No cyanosis. NEUROLOGIC: The patient is awake, alert. Follows simple commands. MEDICATIONS: Eliquis, Ecotrin, Coreg, Colace, calcium, Lasix, Glucotrol, insulin, lactulose, losartan, Lyrica, vitamin B12. LABORATORY DATA: White blood cell 9.7, hemoglobin 11.7, hematocrit 34.3, platelets 274. Sodium 137, potassium 4.5, BUN 31, creatinine 1.8, glucose 273. ASSESSMENT AND PLAN: Mr. Jules Campo is a 72-year-old male with anemia, renal insufficiency, diabetes mellitus, has gram positive bacteremia as per Infectious Disease, urinary tract infection, leukocytosis, weakness, cerebrovascular accident, coronary artery disease, diabetes mellitus, hypertension, sleep apnea, chronic constipation improved, urinary retention, history of used to have Carr catheter, urologist is on the case Dr. Ezra Shelley removed the Carr catheter. Neurologist on the case according to him, the patient has mild acute kidney injury likely hemodynamic, diabetic chronic kidney disease, hypertensive chronic kidney disease, history of prostate cancer. Status post Botox injection, neuropathy. No acute need for renal replacement. Hypertension is getting better. Continue on ARB, losartan, Dr. Leonard increased it to 200. Getting antibiotics. nephrotic nonsteroidal antiinflammatory drug, iodinated contrast unless need emergently. Needs glycemic control. Discussion done with the patient's and the patient, will call the patient's nephew Dr. Hernadnez, that is patient's 's nephew. Physical therapy. losartan, Crestor, Dulcolax, aspirin, Eliquis, Lyrica, vitamins, Lasix, insulin. GI and DVT prophylaxis. Repeat labs. We will follow up. Zuleima Jackson MD [facility]
[2018-01-23 07:18] LABS: MEAN CELL VOLUME 87.2 fL (80.0-94.0); MEAN CORPUSCULAR HEMOGLOBIN 29.6 pg (27.0-31.0); MEAN CORPUSCULAR HGB CONC 33.9 g/dL (33.0-37.0); MEAN PLATELET VOLUME 8.9 fL (7.2-11.7); RBC 4.07 Mil/uL (4.40-5.90); RED CELL DISTRIBUTION WIDTH 13.7 % (11.5-14.5); WHITE BLOOD COUNT 10.7 K/uL (4.8-10.8)
[2018-01-23 07:48] LABS: CALCIUM 9.4 mg/dl (8.6-10.4)
[2018-01-23 08:30] VITALS: TEMP 98.1
[2018-01-23] MEDS: (Novolin R) Insulin Human Regular 100 units/ml vial SC SCH ×2 (08:30→13:30)
[2018-01-23] MEDS: Multivitamin Vitamin B Complex (Nephro-Vite) Tab PO SCH (08:30)
--- NOTE | 2018-01-23 11:49 | CP.PCM.PN ---
Subjective - Date & Time of Evaluation Date of Evaluation: 01/23/18 Time of Evaluation: 11:49 - Subjective Subjective: CHIEF COMPLAINTS TODAY : AFEBRILE, AAO ANXIOUS TO GO TO REHAB. FOLY REMOVED FOR TRIAL OF VOIDING. 01/22/18 BY AAYUSH PT VOIDING OK ROS. HEENT : N. Resp : No cough, wheezing ,pleuritic CP ,or hemoptysis Cardio : No anginal CP, PND, orthopnea, palpitation GI : No abd.pain, n/v ,diarrhea or GI bleeding . 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 Musculoskel : No joint swelling , Derm : No rash Psych : Normal affect. Ext : No swelling ,calf pain PE. Pt. is alert awake in no distress. V.S As noted in the chart Head ,ear nose,throat and eyes : Normal. Neck : Supple with normal carotids. Lungs: Clear air entry. Heart : S1 & S2 normal with S4. No murmur. Abd : Soft non tender with normal bowel sounds. Neuro : Moves all ext. with no localized deficit. Ext : No edema with intact pulses.Non tender calves Derm : No rashes or decubitus ulcer. LABS/RADIOLOGY: psa 1.98 N 01/18/18 WBC 9.7 improving Creatinine 1.8/bun 31 REPEAT URINE CULTURE 01/19---VE GROWTH REPEAT BLOOD CULTURES 01/14/18 -VE TO DATE BLOOD CULTURE 1:2 SETS +VE SCN ? CONTAMINANT. BRAIN MRI -NOTED-See report NO ICH, SIGNIFICANT VOLUME LOSS. CH ISCHEMIC CHANGES Objective - Vital Signs/Intake and Output Vital Signs (last 24 hours): Temp Pulse Resp BP Pulse Ox 98.1 F 86 86 H 148/81 20 L 01/23/18 08:29 01/23/18 08:29 01/23/18 08:29 01/23/18 09:49 01/23/18 08:29 - Medications Medications: Current Medications Apixaban (Eliquis) 2.5 mg PO BID [facility] Last Admin: 01/23/18 09:49 Dose: 2.5 mg Aspirin (Ecotrin) 81 mg PO DAILY [facility] Last Admin: 01/23/18 09:49 Dose: 81 mg Carvedilol (Coreg) 3.125 mg PO BID [facility] Last Admin: 01/23/18 09:49 Dose: 3.125 mg Docusate Sodium (Colace) 100 mg PO TID [facility] Last Admin: 01/23/18 09:49 Dose: 100 mg Ergocalciferol (Drisdol 50,000 Intl Units Cap) 1 cap PO Q7D [facility] Last Admin: 01/21/18 13:38 Dose: 1 cap Furosemide (Lasix) 40 mg PO DAILY [facility] Last Admin: 01/23/18 09:49 Dose: 40 mg Glipizide (Glucotrol) 5 mg PO BID [facility] Last Admin: 01/23/18 09:48 Dose: 5 mg Insulin Human Regular (Novolin R) 0 unit SC ACHS [facility] PRN Reason: Protocol Last Admin: 01/23/18 08:30 Dose: 4 unit Lactulose (Enulose) 20 gm PO BID [facility] Last Admin: 01/23/18 09:53 Dose: 20 gm Losartan Potassium (Cozaar) 100 mg PO DAILY [facility] Last Admin: 01/23/18 09:49 Dose: 100 mg Pregabalin (Lyrica) 50 mg PO DAILY [facility] Last Admin: 01/23/18 09:49 Dose: 50 mg Rosuvastatin Calcium (Crestor) 5 mg PO HS [facility] Last Admin: 01/22/18 21:37 Dose: 5 mg Vitamin B Complex/Vit C/Folic Acid (Nephro-Ale) 1 tab PO 0800 [facility] Last Admin: 01/23/18 08:30 Dose: 1 tab - Labs Labs: 01/23/18 06:59 01/23/18 06:57 PT 12.6 SECONDS (9.7-12.2) H 01/12/18 15:37 INR 1.2 01/12/18 15:37 APTT 38 SECONDS (21-34) H 01/12/18 15:37 Assessment and Plan (1) UTI (urinary tract infection) due to urinary indwelling catheter Assessment & Plan: ASSESSMENT; URINARY RETENTION s/p Foly removal UTI.(Enterococcus faecalis ) DM-2 HX TURP. HX MULTIFOCAL CVA GAIT INSTABILITY/WEAKNESS CAD/ W drug-eluting stent x1 Chronic Constipation. PLAN : OFF IV ZOSYN IN AM 01/22/18. ON TRIAL OF VOIDING PER . F/U FEVER CURVE AFTER DC ABX. PT FOR [facility]ATH[facility] CASE DISCUSSED WITH DR HENRY. PMD. Status: Acute (2) Urinary retention Status: Acute (3) Gram-positive bacteremia Status: Acute (4) Leukocytosis Status: Acute (5) Weakness Status: Acute (6) Acute CVA (cerebrovascular accident) Status: Acute (7) CAD (coronary artery disease) Status: Acute (8) Diabetes mellitus Status: Chronic (9) HTN (hypertension) Status: Chronic (10) Sleep apnea Status: Acute (11) Chronic constipation Status: Acute
--- NOTE | 2018-01-23 15:15 | CP.PCM.PN ---
Subjective - Date & Time of Evaluation Date of Evaluation: 01/23/18 Time of Evaluation: 09:30 - Subjective Subjective: Nephrology Consultation Note: Assessment: Stable Mild Acute Kidney Injury (N17.9) likely hemodynamic Diabetic chronic Kidney Disease (E11.22) Hypertensive Chronic Kidney Disease (I12.9) Chronic Kidney Disease (N18.3) Stage 3 with 3 gram proteinuria (R80.9) likely due to DM/HTN/obesity Anemia (D64.9), uncontrolled HTN (I12.9) CA prostate, OAB s/p botox inj, LATRELL, PVD, neuropathy, CAD s/p stent, Vit D def Plan No acute need for renal replacement therapy at this time. Hypertension control with meds as ordered. Maintain hemodynamics stable. Avoid hypotension. Patient on ARB as losartan 50 mg/day, increased to 100 mg. added low dose coreg 3.125 mg bid as BP was on higher side and hx of CAD as well. Monitor Input/Output, daily weights and renal function with basic metabolic panel changed lasix to PO 40 mg/day will need to stop metformin once GFR <30, can continue current dose for now started nephrovite, iron (stopped due to constipation) and weekly Vit D daily. ID, cardiology, following, recs noted Dose meds/antibiotics for reduced GFR. Avoid fleets enema/magnesium based laxatives. Avoid nephrotoxins/NSAIDs/ iodinated contrast (unless needed emergently) Glycemic control Further work up/management as per primary team pt stable for d/c from renal perspective when planned with outpt renal follow up 1-2 weeks Thanks for allowing me to participate in care of your patient. Will follow patient with you. Please call if any Qs. had d/w team and Dr WestonJustin Horacio Office: [phone] Chief Complaint; gen weakness Reason for consult: CKD HPI: Pt is a 72 M with hx of diabetes Mellitus (15 years) with neuropathy, hypertension (years), CA prostate, OAB s/p botox inj, LATRELL, PVD, CAD s/p stent and CKD stage 3 presented with complaints of gen weakness and found ot have UTI and pulm congestion. diuresed with lasix. seen by ID and given ABx. seen by cardio and as well. renal consult for PORTIA on CKD 3 management Denies OTC/herbal meds or NSAIDs No recent iodinated contrast exposure. No obvious episodes of low BP. ROS: reports constipation resolved. want to go home. pending rehab placement though Cardiovascular: No chest pain. Pulmonary: No shortness of breath Gastrointestinal: No nausea. No vomiting. Genitourinary: No pain while urinating. Denies blood in urine. All other negative except as mentioned in HPI. has weakness Physical Examination: General Appearance: Comfortable, in no acute respiratory distress, co-operative . obese Vitals reviewed and noted as below Head; Atraumatic, normocephalic ENT: no ulcers no thrush. Tongue is midline. Oropharynx: no rash or ulcers. EYES: Pupils are equal, round and reactive to light accommodation. Eye muscles and extraocular movement intact. Sclera is anicteric. Neck; supple no lymphadenopathy, no thyromegaly or bruit Lungs: Normal respiratory rate/effort. Breath sounds bilateral equal and clear Heart: Normal rate. s1s2 normal. No rub or gallop. Extremities: no edema. No varicose veins Neurological: Patient is alert, awake and oriented to person, place and time. No focal deficit. Strength bilateral appropriate and equal Skin: Warm and dry. Normal turgor. No rash. Palpitation: Normal elasticity for age Abdomen: Abdomen is soft. Bowel sounds +. There is no abdominal tenderness, no guarding/rigidity no organomegaly Psych: normal insight and normal affect/mood MSK: no joint tenderness or swelling. Digits and nails normal, no deformity : kidney or bladder not palpable. has chaney + Labs/imaging reviewed. Past medical history, past surgical history, family history, social history, allergy reviewed and noted as below Family hx: no hx of CKD. Rest non-contributory renal imaging WNLUA 3+ protein CAROLYNE/C3 and C4 WNL last year Objective - Vital Signs/Intake and Output Vital Signs (last 24 hours): Temp Pulse Resp BP Pulse Ox 98.1 F 86 86 H 148/81 20 L 01/23/18 08:29 01/23/18 12:08 01/23/18 08:29 01/23/18 09:49 01/23/18 08:29 Intake and Output: 01/23/18 01/23/18 06:59 18:59 Intake Total 480 Balance 480 - Medications Medications: Current Medications Apixaban (Eliquis) 2.5 mg PO BID [facility] Last Admin: 01/23/18 09:49 Dose: 2.5 mg Aspirin (Ecotrin) 81 mg PO DAILY [facility] Last Admin: 01/23/18 09:49 Dose: 81 mg Carvedilol (Coreg) 3.125 mg PO BID [facility] Last Admin: 01/23/18 09:49 Dose: 3.125 mg Docusate Sodium (Colace) 100 mg PO TID [facility] Last Admin: 01/23/18 13:30 Dose: 100 mg Ergocalciferol (Drisdol 50,000 Intl Units Cap) 1 cap PO Q7D [facility] Last Admin: 01/21/18 13:38 Dose: 1 cap Furosemide (Lasix) 40 mg PO DAILY [facility] Last Admin: 01/23/18 09:49 Dose: 40 mg Glipizide (Glucotrol) 5 mg PO BID [facility] Last Admin: 01/23/18 09:48 Dose: 5 mg Insulin Human Regular (Novolin R) 0 unit SC ACHS [facility] PRN Reason: Protocol Last Admin: 01/23/18 13:30 Dose: 5 unit Lactulose (Enulose) 20 gm PO BID [facility] Last Admin: 01/23/18 09:53 Dose: 20 gm Losartan Potassium (Cozaar) 100 mg PO DAILY [facility] Last Admin: 01/23/18 09:49 Dose: 100 mg Pregabalin (Lyrica) 50 mg PO DAILY [facility] Last Admin: 01/23/18 09:49 Dose: 50 mg Rosuvastatin Calcium (Crestor) 5 mg PO HS [facility] Last Admin: 01/22/18 21:37 Dose: 5 mg Vitamin B Complex/Vit C/Folic Acid (Nephro-Ale) 1 tab PO 0800 [facility] Last Admin: 01/23/18 08:30 Dose: 1 tab - Labs Labs: 01/23/18 06:59 01/23/18 06:57 PT 12.6 SECONDS (9.7-12.2) H 01/12/18 15:37 INR 1.2 01/12/18 15:37 APTT 38 SECONDS (21-34) H 01/12/18 15:37
[2018-01-23 16:44] VITALS: BP 147/88; PULSE 80; RESP 20; O2SAT 96
--- NOTE | 2018-01-30 20:54 | PQF ---
PROVIDER RESPONSE TEXT: Ask id REVIEWER QUERY TEXT: Rule Out Sepsis Clarification Bacteremia is documented in the Medical Record. Please clarify whether: -- Patient has sepsis - Please document confirmed Sepsis, suspected or probable causative organism - Please document confirmed Sepsis, suspected or probable localized infection -- Patient had sepsis on admission which is resolved --Unable to determine -- Other, please specify The patient's Clinical Indicators include: ?72 y/o male, with Hx of CVA, presents to the ED complaining of generalized weakness and a decrease i n alertness that began earlier today, as per . Both the patient and his are poor historians? . WBC: 14.1 Blood Culture result: COAGULASE NEG STAPHYLOCOCCUS BLOOD CULTURE POSITIVE FOR GRAM POSITIVE COCCI IN CLUSTERS Urine Culture: ENTEROCOCCUS FAECALIS Gram-positive bacteremia documented. Patient in treatment with Vanco and Zosyn. Query created by: Fidel Dunn on 01/22/2018 3:41 PM Electronically signed by: Zuleima Jackson MD 01/30/2018 8:51 PM
--- NOTE | 2018-02-01 10:02 | DS ---
The patient was admitted on 01/12/2018 and discharged to rehab on 01/23/2018. The patient was seen and examined at the bedside on 01/23/2018. CHIEF COMPLAINT: Altered mental status. HISTORY OF PRESENT ILLNESS: Mr. Jules Campo is a 72-year-old male with multiple medical problems, indwelling Carr's catheter, came to with altered mental status, history of CVA, feeling generalized weakness, decrease in alertness. was on the bedside. No fever, no chills. According to , the patient was experiencing diarrhea, readmitted the patient, did CAT scan of the head, chest x-rays. He has already consulted probably Dr. Shelley; seen by Infectious Disease, Dr. Berlin Guerrero; truck guard, Dr. Justin Leonard. The patient's blood culture was positive, but according to ID, it is contamination. The patient has sepsis due to UTI, antibiotics given, got better, discharged to [facility] for deconditioning and physical therapy. PAST MEDICAL HISTORY: Anemia, diabetes mellitus, hypertension, hypercholesterolemia, peripheral edema, and history of coronary artery disease. FAMILY HISTORY: Father and mother, noncontributory. HABITS: No smoking, no drug, no ethanol. REVIEW OF SYSTEMS: The patient was seen and examined at bedside. Looking comfortable. No fever, no chills. No nausea, vomiting, or diarrhea. No hematemesis or hematochezia. No swelling of the leg. No headache, no dizziness. No chest pain or palpitation. PHYSICAL EXAMINATION: VITALS: Temperature 98.1, pulse 80, blood pressure 147/88, respiratory rate 20, and pulse oximetry 99. HEENT: Head, normocephalic and atraumatic. Eyes, PERRLA. Extraocular muscles intact. Conjunctivae clear. Nose patent. Mucous membrane moist. NECK: Supple. No carotid bruit. No JVD. No thyromegaly. CHEST: Bilaterally symmetrical. HEART: S1 and S2 positive. LUNGS: Clear to auscultation. ABDOMEN: Soft. Bowel sounds present. No organomegaly. EXTREMITIES: No edema. No cyanosis. NEUROLOGIC: The patient is awake, alert, moving all four extremities. No focal deficits. LABORATORIES: White blood cells 10.7, hemoglobin 12, hematocrit 35.5, platelets 261. Sodium 139, potassium 4.8, BUN 44, creatinine 1.9, glucose 319. ASSESSMENT AND PLAN: Mr. Jules Campo is a 72-year-old male with leukocytosis, anemia, abnormal liver function test, renal insufficiency, diabetes mellitus, proteinuria, glucosuria. Drug screen negative. Seen by urologist, Dr. Obdulia Shelley. The patient has urinary tract infection and retention, history of prostate cancer as per urologist, catheter in place, trial to voiding after level of activity increased. The patient is still bed bound. Discussion done with the patient's multiple times. The patient has history of blood culture positive, but according to Infectious Disease, this is a contamination. The patient has sepsis due to urinary tract infection and urosepsis, maybe indwelling urinary catheter. Got antibiotics. Mental levels are back to normal. Status post cerebrovascular accident, coronary artery disease, hypertension, sleep apnea syndrome, chronic constipation. Donor Services Manager is on the case. Gastrointestinal and deep venous thrombosis prophylaxis given. The patient is very deconditioned. Talked to the patient's and family. Transfer the patient to [facility] for deconditioning, so he can get physical therapy. As of now, he will become actively walking. Maybe, we will try to discontinue the Carr's catheter. Continue present treatment there. Zuleima Jackson MD [place]
== END 2018-01-23 17:00 | DRG 698 ==
LOC: C.ER 15:13 → C.9E 16:54 → C.5S 19:24
PROVIDERS: ADMIT Internal Medicine; ATTEND Internal Medicine
DX: T83.518A Infection and inflammatory reaction due to other urinary catheter, initial encounter (principal); I63.9 Cerebral infarction, unspecified; A41.9 Sepsis, unspecified organism; I13.0 Hypertensive heart and chronic kidney disease with heart failure and stage 1 through stage 4 chronic kidney disease, or unspecified chronic kidney disease; N39.0 Urinary tract infection, site not specified; N17.9 Acute kidney failure, unspecified; E11.22 Type 2 diabetes mellitus with diabetic chronic kidney disease; E11.65 Type 2 diabetes mellitus with hyperglycemia; N18.3 Chronic kidney disease, stage 3 (moderate); I50.9 Heart failure, unspecified; Z79.4 Long term (current) use of insulin; E87.5 Hyperkalemia; E78.00 Pure hypercholesterolemia, unspecified; Z95.5 Presence of coronary angioplasty implant and graft; Z86.73 Personal history of transient ischemic attack (TIA), and cerebral infarction without residual deficits; I25.10 Atherosclerotic heart disease of native coronary artery without angina pectoris; E66.01 Morbid (severe) obesity due to excess calories; G47.33 Obstructive sleep apnea (adult) (pediatric); Z85.46 Personal history of malignant neoplasm of prostate; E11.51 Type 2 diabetes mellitus with diabetic peripheral angiopathy without gangrene; K59.09 Other constipation; R33.9 Retention of urine, unspecified; E11.40 Type 2 diabetes mellitus with diabetic neuropathy, unspecified; B96.89 Other specified bacterial agents as the cause of diseases classified elsewhere

== ENCOUNTER 2018-04-17 07:07 | Inpatient (IN) | payer MEDICARE, BC ==
[2018-04-17 07:07] VITALS: BMI 42.9
--- NOTE | 2018-04-17 07:59 | C.PDOC ---
History Of Present Illness 73 y/o male,w/PMhx of diabetes and HTN, presents to the ER for evaluation and admission of non-healing ulcer to left heel. Patient states that his pull up hand, , referred him to the ER for admission. Patient denies having fever and chills. Time Seen by Provider: 04/17/18 07:18 Chief Complaint (Nursing): Lower Extremity Problem/Injury History Per: Patient History/Exam Limitations: no limitations Onset/Duration Of Symptoms: Days Current Symptoms Are (Timing): Still Present Severity: Moderate Recent travel outside of the [place]: No Past Medical History Reviewed: Historical Data, Nursing Documentation, Vital Signs Vital Signs: Last Vital Signs Temp 97.4 F L 04/17/18 07:13 Pulse 91 H 04/17/18 07:13 Resp 18 04/17/18 07:13 BP 152/82 H 04/17/18 07:13 Pulse Ox 97 04/17/18 07:13 - Medical History PMH: Anemia, Arthritis, Diabetes, HTN, Hypercholesterolemia, Hyperlipidemia, Peripheral Edema Surgical History: Coronary Stent (X1) - [facility] Procedures DETACHMENT AT RIGHT 1ST TOE, COMPLETE, OPEN APPROACH (01/30/17) DETACHMENT AT RIGHT 1ST TOE, HIGH, OPEN APPROACH (01/30/17) DILATION OF RIGHT PERONEAL ARTERY, PERCUTANEOUS APPROACH (12/26/16) EXTIRPATION OF MATTER FROM R PERONEAL ART, PERC APPROACH (12/26/16) INSERTION OF INTRALUM DEV INTO R FEM ART, PERC APPROACH (12/26/16) INSPECTION OF BLADDER, ENDO (06/21/15) RESECTION OF PROSTATE, ENDO (06/21/15) ULTRASONOGRAPHY OF RIGHT AND LEFT HEART, TRANSESOPHAGEAL (10/12/16) Family History: States: No Known Family Hx - Social History Hx Alcohol Use: No Hx Substance Use: No - Immunization History Hx Tetanus Toxoid Vaccination: No Hx Influenza Vaccination: Yes Hx Pneumococcal Vaccination: Yes Review Of Systems Except As Marked, All Systems Reviewed And Found Negative. Constitutional: Negative for: Fever, Chills Musculoskeletal: Positive for: Foot Pain Skin: Positive for: Other (left heel ulcer) Physical Exam - Physical Exam Appears: Non-toxic, No Acute Distress, Other (obese male) Skin: Warm, Dry Head: Atraumatic, Normacephalic Eye(s): bilateral: Normal Inspection Nose: Normal Oral Mucosa: Moist Neck: Supple Chest: Symmetrical Cardiovascular: Rhythm Regular Respiratory: Normal Breath Sounds, No Rales, No Rhonchi, No Wheezing Extremity: Normal ROM, No Tenderness, Swelling (sweling to left leg, pt notes the swelling is chronic), Other (left foot wrapped, wound not visible) Neurological/Psych: Oriented x3, Normal Speech Gait: Unable To Assess ED Course And Treatment - Laboratory Results Result Diagrams: 04/17/18 08:43 04/17/18 08:43 Lab Interpretation: No Acute Changes ECG: Interpreted By Me ECG Rhythm: Sinus Rhythm, 1st Degree HB, Nonspecific Changes ECG Interpretation: No Acute Changes Rate From EC O2 Sat by Pulse Oximetry: 97 (RA) Pulse Ox Interpretation: Normal - Other Rad CXR X-Ray: Viewed By Me, Read By Radiologist Interpretation: Date of service: 04/17/2018. HISTORY: SOB. COMPARISON: Comparison chest 01/12/18.. TECHNIQUE: Chest PA and lateral. FINDINGS: LUNGS: Minor bibasilar atelectasis.. PLEURA: No significant pleural effusion identified. No pneumothorax apparent. CARDIOVASCULAR: Mild moderate aortic atherosclerotic calcification present. Cardiomegaly.. No pulmonary vascular congestion. OSSEOUS STRUCTURES: Mild multilevel degenerative spondylosis of the thoracic spine. VISUALIZED UPPER ABDOMEN: Normal. OTHER FINDINGS: None. IMPRESSION: Minor bibasilar atelectasis. Cardiomegaly. Progress Note: Treated with IVF NSS and zosyn IV. Case discussed and patient evaluated by podiatry resident Reassessment Condition: Unchanged - Physician Consult Information Physician Contacted: Zuleima Jackson Outcome Of Conversation: admit Medical Decision Making Medical Decision Making: Plan: --Labs --UA --CXR --X-Ray-Left Foot --Podiatry Evaluation Disposition Discussed With : Zuleima Jackson Doctor Will See Patient In The: Hospital - Disposition Disposition: HOSPITALIZED Disposition Time: 09:00 Condition: STABLE - POA Present On Arrival: None - Clinical Impression Clinical Impression: Diabetic foot ulcer - PA / ASSOCIATE MANAGER / Resident Statement MD/DO has reviewed & agrees with the documentation as recorded. - Scribe Statement The provider has reviewed the documentation as recorded by the Lila Parker Provider Attestation All medical record entries made by the Scribe were at my direction and personally dictated by me. I have reviewed the chart and agree that the record accurately reflects my personal performance of the history, physical exam, medical decision making, and the department course for this patient. I have also personally directed, reviewed, and agree with the discharge instructions and disposition. Decision To Admit - Pt Status Changed To: Hospital Disposition Of: Inpatient - Admit Certification Admit to Inpatient:: After my assessment, the patient will require hospitalization for at least two midnights. This is because of the severity of symptoms shown, intensity of services needed, and/or the medical risk in this patient being treated as an outpatient. - InPatient: Physician Admission Certification: I certify that this patient requires 2 or more midnights of care for the following reason:: Diabetic foot ulcer - . Bed Request Type: Regular Admitting Physician: Zuleima Jackson Patient Diagnosis: Diabetic foot ulcer
[2018-04-17 08:47] LABS: BASO # 0.1 K/uL (0.0-0.2); BASO % 0.6 % (0.0-2.0); EOS # 0.4 K/uL (0.0-0.7); EOS % 4.7 % (0.0-4.0); HEMOGLOBIN 10.4 g/dL (12.0-18.0); LYMPH # 1.9 K/uL (1.0-4.3); LYMPH % 20.7 % (20.0-40.0); MEAN CORPUSCULAR HEMOGLOBIN 30.5 pg (27.0-31.0); MEAN CORPUSCULAR HGB CONC 33.5 g/dL (33.0-37.0); MEAN PLATELET VOLUME 8.7 fL (7.2-11.7); MONO # 0.8 K/uL (0.0-0.8); NEUT # 5.9 K/uL (1.8-7.0); RBC 3.42 Mil/uL (4.40-5.90); RED CELL DISTRIBUTION WIDTH 13.4 % (11.5-14.5)
[2018-04-17] MEDS ORDERED: Piperacillin/Tazobact 3.375 gm 100 ML IV STA (08:47)
[2018-04-17 08:49] LABS: MEAN CELL VOLUME 91.2 fL (80.0-94.0)
[2018-04-17 09:03] LABS: ALB/GLOB RATIO 0.9 (1.0-2.1); ALBUMIN 3.7 g/dL (3.5-5.0); CALCIUM 9.3 mg/dl (8.6-10.4)
--- NOTE | 2018-04-17 09:42 | RAD ---
Date of service: 04/17/2018 HISTORY: SOB COMPARISON: Comparison chest 01/12/18.. TECHNIQUE: Chest PA and lateral FINDINGS: LUNGS: Minor bibasilar atelectasis.. PLEURA: No significant pleural effusion identified. No pneumothorax apparent. CARDIOVASCULAR: Mild moderate aortic atherosclerotic calcification present. Cardiomegaly.. No pulmonary vascular congestion. OSSEOUS STRUCTURES: Mild multilevel degenerative spondylosis of the thoracic spine. VISUALIZED UPPER ABDOMEN: Normal. OTHER FINDINGS: None. IMPRESSION: Minor bibasilar atelectasis. Cardiomegaly.
[2018-04-17] MEDS ORDERED: Piperacillin/Tazobact 3.375 gm 100 ML IVPB ONE (09:45)
--- NOTE | 2018-04-17 10:52 | CP.PCM.CON ---
History of Present Illness - History of Present Illness History of Present Illness: Podiatry - Dr. Tate 73 year old male patient PMHx including DM, arthritis, HTN, hx CVA, CAD, CHF, seen and evaluated at bedside concerning left heel ulceration. present at bedside. Patient was sent to ED by sports fitness and wellness director Dr. Tate for failed outpatient treatment for nonhealing left heel wound. Patient states perfor ms local wound care and dressing changes at home. At present, patient denies any pain to lower extremity. Dressing to LLE clean/dry/intact. Denies n/v/f/d/c/sob. Review of Systems - Review of Systems All systems: reviewed and no additional remarkable complaints except (as per HPI) Past Patient History - Infectious Disease Hx of Infectious Diseases: None - Past Medical History & Family History Past Medical History?: Yes - Past Social History Smoking Status: Never Smoked - CARDIAC Hx Hypercholesterolemia: Yes Hx Hypertension: Yes Hx Peripheral Edema: Yes - NEUROLOGICAL HX Cerebrovascular Accident: Yes - HEENT Hx Cataracts: Yes (BILAT.) - ENDOCRINE/METABOLIC Hx Diabetes Mellitus Type 2: Yes - HEMATOLOGICAL/ONCOLOGICAL Hx Anemia: Yes - INTEGUMENTARY Hx Dermatological Problems: Yes - MUSCULOSKELETAL/RHEUMATOLOGICAL Hx Arthritis: Yes - GASTROINTESTINAL Hx Gastrointestinal Disorders: Yes - GENITOURINARY/GYNECOLOGICAL Hx Prostate Problems: Yes - PSYCHIATRIC Hx Substance Use: No - SURGICAL HISTORY Hx Coronary Stent: Yes (X1) - ANESTHESIA Hx Anesthesia: Yes Hx Anesthesia Reactions: No Hx Malignant Hyperthermia: No Meds Allergies/Adverse Reactions: Allergies Allergy/AdvReac Type Severity Reaction Status Date / Time No Known Allergies Allergy Verified 01/12/18 15:24 Physical Exam - Constitutional Appears: Non-toxic, No Acute Distress - Extremities Exam Additional comments: Left lower extremity focused physical exam: VASC: DP and PT pulses palpable 1/4. CFT <3 seconds to digits. Temperature gradient warm to warm. Nonpitting edema noted to left foot. DERM: Full thickness ulceration noted to posterolateral aspect of left heel with mixed granular/fibrotic/necrotic base; serosanguinous drainage present; no purulence noted; no fluctuance; periwound erythema present; no probe to bone; malodor present NEURO: Protective sensation grossly diminished. ORTHO: Mild tenderness on palpation of left heel - Neurological Exam Neurological exam: Alert, Oriented x3 - Psychiatric Exam Psychiatric exam: Normal Affect, Normal Mood Results - Vital Signs Recent Vital Signs: Last Vital Signs Temp 97.4 F L 04/17/18 10:44 Pulse 82 04/17/18 10:44 Resp 20 04/17/18 10:44 BP 182/94 H 04/17/18 10:44 Pulse Ox 97 04/17/18 10:44 - Labs Result Diagrams: 04/17/18 08:43 04/17/18 08:43 Labs: Laboratory Results - last 24 hr 04/17/18 04/17/18 08:43 08:43 WBC 9.0 RBC 3.42 L Hgb 10.4 L Hct 31.1 L MCV 91.2 D MCH 30.5 MCHC 33.5 RDW 13.4 Plt Count 283 MPV 8.7 Neut % (Auto) 65.0 Lymph % (Auto) 20.7 [place] % (Auto) 9.0 Eos % (Auto) 4.7 H Baso % (Auto) 0.6 Neut # (Auto) 5.9 Lymph # (Auto) 1.9 [place] # (Auto) 0.8 Eos # (Auto) 0.4 Baso # (Auto) 0.1 Sodium 139 Potassium 5.8 H Chloride 106 Carbon Dioxide 24 Anion Gap 15 BUN 46 H Creatinine 1.7 H Est GFR ( Amer) 48 Est GFR (Non-Af Amer) 40 Random Glucose 125 H Calcium 9.3 Total Bilirubin 0.4 AST 31 ALT 24 Alkaline Phosphatase 59 Total Protein 7.7 Albumin 3.7 Globulin 4.0 H Albumin/Globulin Ratio 0.9 L Assessment & Plan - Assessment and Plan (Free Text) Assessment: 73M with nonhealing ulceration to left heel Plan: Patient seen and evaluated alongside attending, Dr. Lea Richards, WBC 9.0 L foot XR obtained, f/u report Patient scheduled for OR tomorrow 04/18 @ 7:30 left heel wound d ebridement -Dr. Jackson contacted for medical clearance -NPO @ mn Activity: NWB LLE, OOB to commode privileges only -Bedside commode ordered Podiatry will continue to follow
--- NOTE | 2018-04-17 11:31 | CP.PCM.CON ---
History of Present Illness - History of Present Illness Bad table Past Patient History - Infectious Disease Hx of Infectious Diseases: None - Past Medical History & Family History Past Medical History?: Yes - Past Social History Smoking Status: Never Smoked - CARDIAC Hx Hypercholesterolemia: Yes Hx Hypertension: Yes Hx Peripheral Edema: Yes - NEUROLOGICAL HX Cerebrovascular Accident: Yes - HEENT Hx Cataracts: Yes (BILAT.) - ENDOCRINE/METABOLIC Hx Diabetes Mellitus Type 2: Yes - HEMATOLOGICAL/ONCOLOGICAL Hx Anemia: Yes - INTEGUMENTARY Hx Dermatological Problems: Yes - MUSCULOSKELETAL/RHEUMATOLOGICAL Hx Arthritis: Yes - GASTROINTESTINAL Hx Gastrointestinal Disorders: Yes - GENITOURINARY/GYNECOLOGICAL Hx Prostate Problems: Yes - PSYCHIATRIC Hx Substance Use: No - SURGICAL HISTORY Hx Coronary Stent: Yes (X1) - ANESTHESIA Hx Anesthesia: Yes Hx Anesthesia Reactions: No Hx Malignant Hyperthermia: No Meds Allergies/Adverse Reactions: Allergies Allergy/AdvReac Type Severity Reaction Status Date / Time No Known Allergies Allergy Verified 01/12/18 15:24 Results - Vital Signs Recent Vital Signs: Last Vital Signs Temp 97.4 F L 04/17/18 10:44 Pulse 82 04/17/18 10:44 Resp 20 04/17/18 10:44 BP 182/94 H 04/17/18 10:44 Pulse Ox 97 04/17/18 10:44 - Labs Result Diagrams: 04/17/18 08:43 04/17/18 08:43 Labs: Laboratory Results - last 24 hr 04/17/18 04/17/18 08:43 08:43 WBC 9.0 RBC 3.42 L Hgb 10.4 L Hct 31.1 L MCV 91.2 D MCH 30.5 MCHC 33.5 RDW 13.4 Plt Count 283 MPV 8.7 Neut % (Auto) 65.0 Lymph % (Auto) 20.7 [place] % (Auto) 9.0 Eos % (Auto) 4.7 H Baso % (Auto) 0.6 Neut # (Auto) 5.9 Lymph # (Auto) 1.9 [place] # (Auto) 0.8 Eos # (Auto) 0.4 Baso # (Auto) 0.1 Sodium 139 Potassium 5.8 H Chloride 106 Carbon Dioxide 24 Anion Gap 15 BUN 46 H Creatinine 1.7 H Est GFR ( Amer) 48 Est GFR (Non-Af Amer) 40 Random Glucose 125 H Calcium 9.3 Total Bilirubin 0.4 AST 31 ALT 24 Alkaline Phosphatase 59 Total Protein 7.7 Albumin 3.7 Globulin 4.0 H Albumin/Globulin Ratio 0.9 L
[2018-04-17] MEDS: (Novolin R) Insulin Human Regular 100 units/ml vial SC SCH ×2 (12:00→18:12)
[2018-04-17] MEDS ORDERED: Ergocalciferol 50,000 Intl Units Cap PO SCH (12:00)
[2018-04-17] MEDS: Piperacill/Tazo 2.25gm in Dex 2.25 GM/50 ML BAG IVPB SCH (12:30)
[2018-04-17] MEDS ORDERED: Sod Polystyrene Sulf 15 gm/60 ml Susp PO ONE (14:22)
[2018-04-17] MEDS ORDERED: (Novolin R) Insulin Human Regular 100 units/ml vial SC SCH (16:30)
--- NOTE | 2018-04-17 16:35 | RAD ---
PROCEDURE: Left Foot Radiographs. HISTORY: cellulitis COMPARISON: None available. FINDINGS: BONES: No acute displaced fracture. Degenerative changes with osteophyte noted along the medial aspect of the proximal distal 1st phalanx. JOINTS: No dislocation. SOFT TISSUES: Moderate to severe soft tissue swelling/cellulitis. Vascular calcifications. No evidence of radiopaque foreign body. OTHER FINDINGS: None. IMPRESSION: Moderate to severe soft tissue swelling/cellulitis.
--- NOTE | 2018-04-17 21:05 | CARD ---
APPROVED REPORT Date of service: 04/17/2018 EKG Measurement Heart [id number] <Conclusion> Sinus rhythm with 1st degree AV block Cannot rule out Anterior infarct, age undetermined Abnormal ECG
--- NOTE | 2018-04-17 23:45 | CP.PCM.CON ---
History of Present Illness - History of Present Illness History of Present Illness: INFECTIOUS DISEASE CONSULT: HPI : 73-year-old male with history of diabetes mellitus, morbid obesity, arthritis, HTN, history of CVA, CAD, CHF was sent to the ER by his ed manager Dr. Alexandra for outpatient failed treatment for nonhealing left heel ulcer. As reported by the patient also developed about 2 weeks ago on the right heel and also swelling of the right lower extremity. At present the patient denies any pain to the lower extremity. Dressing to the left lower extremity is clean dry and intact. Infectious disease consult requested by PMD for evaluation of his nonhealing wound ulcer left heel. PATIENT HAS HISTORY OFF RIGHT FIRST TOE AMPUTATION 01/2017 PMH: Anemia, Arthritis, Diabetes, HTN, Hypercholesterolemia, Hyperlipidemia, Peripheral Edema, MULTIFOCAL CVA'S Surgical History: Coronary Stent (X1)DRUG-ELUTING CARDIAC STENT 02/2017, HX TURP X2 - [facility] Procedures DETACHMENT AT RIGHT 1ST TOE, COMPLETE, OPEN APPROACH (01/30/17) DETACHMENT AT RIGHT 1ST TOE, HIGH, OPEN APPROACH (01/30/17) DILATION OF RIGHT PERONEAL ARTERY, PERCUTANEOUS APPROACH (12/26/16) EXTIRPATION OF MATTER FROM R PERONEAL ART, PERC APPROACH (12/26/16) INSERTION OF INTRALUM DEV INTO R FEM ART, PERC APPROACH (12/26/16) INSPECTION OF BLADDER, ENDO (06/21/15) RESECTION OF PROSTATE, ENDO (06/21/15) ULTRASONOGRAPHY OF RIGHT AND LEFT HEART, TRANSESOPHAGEAL (10/12/16) Family History: States: No Known Family Hx - Social History Hx Alcohol Use: No Hx Substance Use: No - Immunization History Hx Tetanus Toxoid Vaccination: No Hx Influenza Vaccination: Yes Hx Pneumococcal Vaccination: Yes ALLERGY; NKA. Review of Systems - Review of Systems All systems: reviewed and no additional remarkable complaints except ( PER HPI.) Past Patient History - Infectious Disease Hx of Infectious Diseases: None - Past Medical History & Family History Past Medical History?: Yes - Past Social History Smoking Status: Never Smoked - CARDIAC Hx Hypercholesterolemia: Yes Hx Hypertension: Yes Hx Peripheral Edema: Yes - NEUROLOGICAL HX Cerebrovascular Accident: Yes - HEENT Hx Cataracts: Yes (BILAT.) - ENDOCRINE/METABOLIC Hx Diabetes Mellitus Type 2: Yes - HEMATOLOGICAL/ONCOLOGICAL Hx Anemia: Yes - INTEGUMENTARY Hx Dermatological Problems: Yes - MUSCULOSKELETAL/RHEUMATOLOGICAL Hx Arthritis: Yes - GASTROINTESTINAL Hx Gastrointestinal Disorders: Yes - GENITOURINARY/GYNECOLOGICAL Hx Prostate Problems: Yes - PSYCHIATRIC Hx Substance Use: No - SURGICAL HISTORY Hx Coronary Stent: Yes (X1) - ANESTHESIA Hx Anesthesia: Yes Hx Anesthesia Reactions: No Hx Malignant Hyperthermia: No Meds Allergies/Adverse Reactions: Allergies Allergy/AdvReac Type Severity Reaction Status Date / Time No Known Allergies Allergy Verified 01/12/18 15:24 - Medications Medications: Current Medications Apixaban (Eliquis) 2.5 mg PO BID [facility] Last Admin: 04/17/18 18:11 Dose: 2.5 mg Aspirin (Ecotrin) 81 mg PO DAILY [facility] Last Admin: 04/17/18 13:00 Dose: 81 mg Carvedilol (Coreg) 3.125 mg PO BID [facility] Last Admin: 04/17/18 18:11 Dose: 3.125 mg Docusate Sodium (Colace) 100 mg PO TID [facility] Last Admin: 04/17/18 18:10 Dose: 100 mg Ergocalciferol (Drisdol 50,000 Intl Units Cap) 1 cap PO Q7D [facility] Last Admin: 04/17/18 13:00 Dose: 1 cap Furosemide (Lasix) 40 mg PO DAILY [facility] Last Admin: 04/17/18 13:18 Dose: 40 mg Glipizide (Glucotrol) 5 mg PO BIDAC [facility] Last Admin: 04/17/18 18:11 Dose: 5 mg Hydromorphone HCl (Dilaudid) 0.5 mg IVP Q6H PRN PRN Reason: pain Piperacillin Sod/Tazobactam Sod (Zosyn 2.25 Gm Iv Premix) 2.25 gm in 50 mls @ 100 mls/hr IVPB Q6H [facility]; Protocol Last Admin: 04/17/18 12:30 Dose: 100 mls/hr Insulin Human Regular (Novolin R) 0 unit SC ACHS [facility]; Protocol Last Admin: 04/17/18 18:12 Dose: 2 units Lactulose (Enulose) 20 gm PO DAILY PRN PRN Reason: Constipation Losartan Potassium (Cozaar) 100 mg PO DAILY [facility] Last Admin: 04/17/18 13:00 Dose: 100 mg Pregabalin (Lyrica) 50 mg PO DAILY [facility] Last Admin: 04/17/18 13:00 Dose: 50 mg Rosuvastatin Calcium (Crestor) 5 mg PO HS [facility] Last Admin: 04/17/18 21:45 Dose: 5 mg Vitamin B Complex/Vit C/Folic Acid (Nephro-Ale) 1 tab PO 0800 [facility] Physical Exam - Constitutional Appears: No Acute Distress (MORBIDLY OBESE.) - Head Exam Head Exam: NORMAL INSPECTION - Eye Exam Eye Exam: EOMI, PERRL - ENT Exam ENT Exam: Normal Oropharynx - Neck Exam Neck exam: Positive for: Normal Inspection - Respiratory Exam Respiratory Exam: Decreased Breath Sounds - Cardiovascular Exam Cardiovascular Exam: REGULAR RHYTHM, +S1, +S2 - GI/Abdominal Exam GI & Abdominal Exam: Normal Bowel Sounds, Soft (OBESE). absent: Tenderness - Extremities Exam Extremities exam: Positive for: pedal edema (RIGHT LOWER EXTREMITY 2+), tenderness (LEFT HEEL ULCER 6CM X 3CM WITH A FIBROTIC BASE/SURROUNDING ERYTHEMA AND EDEMA.ULCER BASE WITH SEROSANGUINEOUS DRAINAGE AND MALODOR. nO PROBE TO THE BONE.). Negative for: calf tenderness - Neurological Exam Neurological exam: Abnormal Gait (PATIENT BEDRIDDEN.), Alert, CN II-XII Intact - Psychiatric Exam Psychiatric exam: Normal Mood - Skin Skin Exam: Dry, Warm Results - Vital Signs Recent Vital Signs: Last Vital Signs Temp 97.9 F 04/17/18 15:45 Pulse 84 04/17/18 15:45 Resp 20 04/17/18 15:45 BP 164/83 H 04/17/18 15:45 Pulse Ox 97 04/17/18 16:26 - Labs Result Diagrams: 04/17/18 08:43 04/18/18 06:09 Labs: Laboratory Results - last 24 hr 04/17/18 04/17/18 04/17/18 08:43 08:43 12:54 WBC 9.0 RBC 3.42 L Hgb 10.4 L Hct 31.1 L MCV 91.2 D MCH 30.5 MCHC 33.5 RDW 13.4 Plt Count 283 MPV 8.7 Neut % (Auto) 65.0 Lymph % (Auto) 20.7 [place] % (Auto) 9.0 Eos % (Auto) 4.7 H Baso % (Auto) 0.6 Neut # (Auto) 5.9 Lymph # (Auto) 1.9 [place] # (Auto) 0.8 Eos # (Auto) 0.4 Baso # (Auto) 0.1 Sodium 139 Potassium 5.8 H Chloride 106 Carbon Dioxide 24 Anion Gap 15 BUN 46 H Creatinine 1.7 H Est GFR ( Amer) 48 Est GFR (Non-Af Amer) 40 POC Glucose (mg/dL) 168 H Random Glucose 125 H Calcium 9.3 Total Bilirubin 0.4 AST 31 ALT 24 Alkaline Phosphatase 59 Total Protein 7.7 Albumin 3.7 Globulin 4.0 H Albumin/Globulin Ratio 0.9 L 04/17/18 04/17/18 16:21 21:19 WBC RBC Hgb Hct MCV MCH MCHC RDW Plt Count MPV Neut % (Auto) Lymph % (Auto) [place] % (Auto) Eos % (Auto) Baso % (Auto) Neut # (Auto) Lymph # (Auto) [place] # (Auto) Eos # (Auto) Baso # (Auto) Sodium Potassium Chloride Carbon Dioxide Anion Gap BUN Creatinine Est GFR ( Amer) Est GFR (Non-Af Amer) POC Glucose (mg/dL) 231 H 231 H Random Glucose Calcium Total Bilirubin AST ALT Alkaline Phosphatase Total Protein Albumin Globulin Albumin/Globulin Ratio - Imaging and Cardiology X-RAY LEFT FOOT Status: Report reviewed by me Assessment & Plan (1) Diabetic foot ulcer Status: Acute (2) Diabetic neuropathy Status: Acute (3) Renal insufficiency Status: Acute (4) Diabetes mellitus Status: Chronic (5) CHF (congestive heart failure) Status: Acute (6) CVA (cerebrovascular accident) Status: Acute - Assessment and Plan (Free Text) Plan: PLAN; PANCULTURES. LT HEEL WOUND CULTURE. ESR. CRP. CONTINUE iv ZOSYN 2.25 G iv PIGGYBACK EVERY 6 HOURLY. 04/17/18. ADD IV VANCOMYCIN 1 G iv PIGGYBACK EVERY 24 HOURLY 04/18/18 STARTING IN OR. [facility] PER PODIATRY. WILL FOLLOW CULTURES AND MAKE ADJUSTMENTS IN ANTIBIOTICS NEEDED. THANK YOU
[2018-04-18] MEDS: Piperacill/Tazo 2.25gm in Dex 2.25 GM/50 ML BAG IVPB SCH ×4 (00:15→23:50)
[2018-04-18] MEDS: HYDROmorphone 0.5 mg/0.5 ml ISec IVP PRN ×3 (00:30→18:30)
[2018-04-18 05:00] LABS: URINE BILIRUBIN NEGATIVE (NEGATIVE); URINE BLOOD NEGATIVE (NEGATIVE); URINE CLARITY Clear (Clear); URINE COLOR Straw (YELLOW); URINE GLUCOSE (UA) NORMAL (Normal); URINE LEUKOCYTE ESTERASE NEG Leu/uL (Negative); URINE PROTEIN 2+ mg/dL (NEGATIVE); URINE UROBILINOGEN NORMAL mg/dL (0.2-1.0)
[2018-04-18 06:31] LABS: IRON 40 ug/dL (49-181)
[2018-04-18 06:39] LABS: ALBUMIN 3.7 g/dL (3.5-5.0); ALT/SGPT 20 U/L (21-72); AST/SGOT 20 U/L (17-59); BLOOD UREA NITROGEN 36 mg/dL (9-20); CALCIUM 8.9 mg/dl (8.6-10.4); GFR NON-AFRICAN AMERICAN 50
[2018-04-18 06:41] LABS: % IRON SATURATION 14 (20-55); TOTAL IRON BINDING CAPACITY 281 ug/dL (250-450)
[2018-04-18 06:46] LABS: INR 1.2; PROTHROMBIN TIME 12.7 SECONDS (9.7-12.2)
[2018-04-18] MEDS ORDERED: Bupivacaine HCl 0.5% PF (30 ml) Inj ONE (07:21)
[2018-04-18] MEDS ORDERED: Sodium Chloride 0.9% 20 ML IV ONE (07:21)
[2018-04-18] MEDS ORDERED: Lidocaine 2% MPF (5 ml) Inj ONE (07:21)
--- NOTE | 2018-04-18 07:23 | HP ---
The patient was seen and examined at the bedside on 04/17/2018. CHIEF COMPLAINT: Lower extremity problem. HISTORY OF PRESENT ILLNESS: Mr. Jules Campo is a 73-year-old male with past medical history of diabetes mellitus, hypertension, came to the emergency room for evaluation of nonhealing ulcer of the left heel. The patient stated that his fisher swordfish, Dr. Zamudio, referred him to emergency department for admission. The patient denies having fever or chills but having pain in the left foot. No headache or dizziness. No hematuria or hematochezia. I saw the patient in his room. was on the bedside. She gave me good history. PAST MEDICAL HISTORY: Anemia, arthritis, diabetes mellitus, hypertension, hypercholesterolemia, hyperlipidemia, peripheral edema, coronary artery stent. FAMILY HISTORY: Father and mother, noncontributory. HABITS: No smoking. No drugs. No ethanol. REVIEW OF SYSTEMS: The patient was seen and examined at the bedside, looking comfortable. was standing on the bedside also. There is nonhealing ulcer of the left heel. Otherwise, no fever, no chills. No hematuria. No hematochezia. No headache or dizziness. No chest pain or palpitation. PHYSICAL EXAMINATION: VITAL SIGNS: Temperature 97.4, pulse 91, respiratory rate 18, blood pressure 150/82, pulse oximetry 97. HEENT: Head: Normocephalic and atraumatic. Eyes: PERRLA. Extraocular muscles are intact. Conjunctivae clear. Nose patent. Mucous membrane moist. NECK: Supple. No carotid bruits, JVD, or thyromegaly. CHEST: Bilaterally symmetrical. HEART: S1 and S2 positive. LUNGS: Clear to auscultation. ABDOMEN: Soft. Bowel sounds present. No organomegaly. EXTREMITIES: No edema. No cyanosis. NEUROLOGIC: The patient is awake and alert. Moving all four extremities. No focal deficit. LABORATORY DATA: White blood cells 9, hemoglobin 10.4, hematocrit 31.1, and platelets 283. Sodium 139, potassium 5.8, BUN 46, creatinine 1.7, and glucose 125. ASSESSMENT AND PLAN: Mr. Jules Campo is a 73-year-old male with anemia, hyperkalemia, Kayexalate given, renal insufficiency, hyperglycemia. The patient has a history of arthritis, hypertension, hypercholesterolemia, hyperlipidemia, peripheral edema, coronary artery disease, having cardiac stenting who was admitted in [facility] couple of months ago, got rehab from [facility], discharged home; now with left foot nonhealing ulcer. The patient has a history of multifocal cerebrovascular accident, peripheral edema, history of transurethral resection of prostate x2, diabetic foot, diabetic neuropathy, congestive heart failure, cerebrovascular accident. Pancultures are done by Infectious Disease. ESR and CRP. Continue Zosyn piggyback every 6 hours, vancomycin piggyback every 24 hours. Camera Machinist is on the case. Infectious Disease is on the case. Discussion done with the . Repeat labs. We will follow. Zuleima Jackson MD
[2018-04-18 07:36] LABS: FOLATE 18.5 ng/mL
[2018-04-18] MEDS ORDERED: Clindamycin 600mg/50ml NS 600 MG/50 ML BAG IVPB ONE (07:41)
[2018-04-18] MEDS ORDERED: Midazolam 2 MG/2 ML VIAL ONE (07:45)
[2018-04-18] MEDS ORDERED: Propofol 10 mg/ml Inj (20 ML) ONE (07:46)
[2018-04-18] MEDS ORDERED: HYDROmorphone 0.5 mg/0.5 ml ISec IVP PRN (08:05)
[2018-04-18] MEDS: (Novolin R) Insulin Human Regular 100 units/ml vial SC SCH ×3 (08:13→17:10)
[2018-04-18] MEDS: Multivitamin Vitamin B Complex (Nephro-Vite) Tab PO SCH (08:13)
--- NOTE | 2018-04-18 08:13 | PCM.SURG1 ---
Surgeon's Initial Post Op Note - Surgeon's Notes Surgeon: Dr. Tariq DPM Real Estate Analyst: Dr. Ashely Franco PGY1 Type of Anesthesia: IV Sedation Pre-Operative Diagnosis: Left heel ulceration Operative Findings: See dictation. I: None. M: None Post-Operative Diagnosis: Same Operation Performed: Left heel ulcer debridement with use of Versajet Specimen/Specimens Removed: None from L foot Estimated Blood Loss: EBL {In ML}: 10 Blood Products Given: N/A Drains Used: No Drains Post-Op Condition: Good Date of Surgery/Procedure: 04/18/18 Time of Surgery/Procedure: 08:13
[2018-04-18] MEDS ORDERED: HYDROmorphone 0.5 mg/0.5 ml ISec ONE (08:28)
[2018-04-18] MEDS ORDERED: Oxycodone/Acetaminophen 5/325 mg Tab PO PRN ×2 (09:00)
--- NOTE | 2018-04-18 14:22 | CP.PCM.PN ---
Subjective - Date & Time of Evaluation Date of Evaluation: 04/18/18 Time of Evaluation: 14:22 - Subjective Subjective: CHIEF COMPLAINTS TODAY : S/P OR 04/18/18 TODAY S/P I & D TODAY LT HEEL. C/O PAIN post -optive site. ROS. HEENT : N. Resp : No cough, wheezing ,pleuritic CP ,or hemoptysis Cardio : No anginal CP, PND, orthopnea, palpitation GI : No abd.pain, n/v ,diarrhea or GI bleeding . FAMILY PROTECTION SPECIALIST : No headache, vertigo, focal deficit. Musculoskel : No joint swelling , Derm : No rash Psych : Normal affect. Ext : LT. HEEL/ANKLE IN LIZZETH DRESSING.+VE SWELLING LT LE. PE. Pt. is alert awake in no distress. V.S As noted in the chart Head ,ear nose,throat and eyes : Normal. Neck : Supple with normal carotids. Lungs: DECREASED AIR ENTRY B/L Heart : S1 & S2 normal with S4. No murmur. Abd : Soft non tender with normal bowel sounds. Neuro : Moves all ext. with no localized deficit. Ext : LT. HEEL/ANKLE IN LIZZETH DRESSING.+VE SWELLING LT LE. Derm : No rashes or decubitus ulcer. LABS/RADIOLOGY: REVIEWED BLOOD CULTURES -VE X24HRS. WOUND CULTURES +VE GPC. Objective - Vital Signs/Intake and Output Vital Signs (last 24 hours): Temp Pulse Resp BP Pulse Ox 98.2 F 77 15 138/76 98 04/18/18 09:30 04/18/18 10:00 04/18/18 10:00 04/18/18 10:31 04/18/18 10:00 Intake and Output: 04/18/18 04/18/18 06:59 18:59 Intake Total 450 450 Output Total 650 Balance -200 450 - Medications Medications: Current Medications Acetaminophen (Tylenol 325mg Tab) 650 mg PO Q6 PRN PRN Reason: Pain, Mild (1-3) Apixaban (Eliquis) 2.5 mg PO BID [facility] Last Admin: 04/18/18 10:31 Dose: 2.5 mg Aspirin (Ecotrin) 81 mg PO DAILY [facility] Last Admin: 04/18/18 10:31 Dose: 81 mg Carvedilol (Coreg) 3.125 mg PO BID [facility] Last Admin: 04/18/18 10:08 Dose: Not Given Docusate Sodium (Colace) 100 mg PO TID [facility] Last Admin: 04/18/18 14:02 Dose: 100 mg Ergocalciferol (Drisdol 50,000 Intl Units Cap) 1 cap PO Q7D [facility] Last Admin: 04/17/18 13:00 Dose: 1 cap Furosemide (Lasix) 40 mg PO DAILY [facility] Last Admin: 04/18/18 10:31 Dose: 40 mg Glipizide (Glucotrol) 5 mg PO BIDAC [facility] Last Admin: 04/18/18 08:13 Dose: Not Given Hydromorphone HCl (Dilaudid) 0.5 mg IVP Q6H PRN PRN Reason: pain Last Admin: 04/18/18 11:59 Dose: 0.5 mg Piperacillin Sod/Tazobactam Sod (Zosyn 2.25 Gm Iv Premix) 2.25 gm in 50 mls @ 100 mls/hr IVPB Q6H [facility]; Protocol Last Admin: 04/18/18 14:02 Dose: 100 mls/hr Vancomycin HCl 1 gm/ Sodium (Chloride) 250 mls @ 166.7 mls/hr IVPB Q24H [facility]; Protocol Last Admin: 04/18/18 10:32 Dose: 166.7 mls/hr Insulin Human Regular (Novolin R) 0 unit SC ACHS [facility]; Protocol Last Admin: 04/18/18 12:04 Dose: 2 units Lactulose (Enulose) 20 gm PO DAILY PRN PRN Reason: Constipation Last Admin: 04/18/18 12:25 Dose: 20 gm Losartan Potassium (Cozaar) 100 mg PO DAILY [facility] Last Admin: 04/18/18 10:08 Dose: Not Given Oxycodone/Acetaminophen (Percocet 5/325 Mg Tab) 1 tab PO Q4H PRN PRN Reason: Pain, moderate (4-7) Stop: 04/21/18 09:01 Oxycodone/Acetaminophen (Percocet 5/325 Mg Tab) 2 tab PO Q4H PRN PRN Reason: Pain, severe (8-10) Stop: 04/21/18 09:01 Pregabalin (Lyrica) 50 mg PO DAILY [facility] Last Admin: 04/18/18 10:31 Dose: 50 mg Rosuvastatin Calcium (Crestor) 5 mg PO HS [facility] Last Admin: 04/17/18 21:45 Dose: 5 mg Vitamin B Complex/Vit C/Folic Acid (Nephro-Ale) 1 tab PO 0800 [facility] Last Admin: 04/18/18 08:13 Dose: Not Given - Labs Labs: 04/17/18 08:43 04/18/18 06:09 PT 12.7 SECONDS (9.7-12.2) H 04/18/18 06:09 INR 1.2 04/18/18 06:09 APTT 40 SECONDS (21-34) H 04/18/18 06:09 Assessment and Plan (1) Diabetic foot ulcer Status: Acute (2) Diabetic neuropathy Status: Acute (3) Renal insufficiency Status: Acute (4) Diabetes mellitus Status: Chronic (5) CHF (congestive heart failure) Status: Acute (6) CVA (cerebrovascular accident) Status: Acute - Assessment and Plan (Free Text) Plan: CONTINUE iv ZOSYN 2.25 G iv PIGGYBACK EVERY 6 HOURLY. 04/17/18. CONTINUE IV VANCOMYCIN 1 G iv PIGGYBACK EVERY 24 HOURLY 04/19/18 F/U VANCO TROUGH PRIOR TO 4TH DOSE AND KEEP BETWEEN 10-20. F/U RENAL FUNCTION CL;OSELY. [facility]WC PER PODIATRY. WILL FOLLOW CULTURES AND MAKE ADJUSTMENTS IN ANTIBIOTICS NEEDED.
[2018-04-18 16:31] VITALS: RESP 20
[2018-04-19] MEDS: HYDROmorphone 0.5 mg/0.5 ml ISec IVP PRN ×2 (00:20→06:36)
[2018-04-19] MEDS: Piperacill/Tazo 2.25gm in Dex 2.25 GM/50 ML BAG IVPB SCH (05:41)
--- NOTE | 2018-04-19 06:21 | OP ---
PROCEDURE DATE: 04/18/2018 PREOPERATIVE DIAGNOSIS: Left heel nonhealing ulceration. POSTOPERATIVE DIAGNOSIS: Left heel nonhealing ulceration. PROCEDURE: Left heel wound debridement with removal of all nonviable tissues using Versajet. SURGEON: Adrian Zamudio DPM INSURANCE LOSS CONTROL SURVEYOR: Ashely Franco, PGY-1 ANESTHESIA: IV sedation with local. INDICATIONS: The patient is a 73-year-old male patient with above diagnosis. The patient has exhausted all conservative treatment at this time and now requires surgical intervention. The patient signed the consent after careful explanation of risks, benefits, complications, and alternatives of the surgical procedure. No guarantees were given nor implied. NPO status was confirmed prior to taking the patient to the operating room. PREPARATION: The patient was brought into the operating room, placed on the operating room table in supine position. Time-out was performed for identification of the current patient and procedure. After induction of IV sedation, the patient received total of 20 mL of 1:1 mixture of 0.5% Marcaine plain and 2% lidocaine plain in a V-block fashion to the left heel wound. Once local anesthesia was achieved, left lower extremity was then prepped and draped in a normal sterile manner and the procedure began. No tourniquet was used during this procedure. DESCRIPTION OF PROCEDURE: Attention was directed to the left foot heel where an ulceration was noted. The ulceration was noted to be composed of granular fibrotic tissue with no visible bone exposure. No drainage was noted from the wound bed. Next, using a Versajet on the setting of 7, the wound was excisionally debrided of all remaining fibrotic and nonviable tissue and fresh and healthy bleeding granulation tissue appeared. The surgical site was then irrigated using sterile saline solution with Bacitracin and peroxide with a bulb syringe. Next, the site was then dressed with a wet-to-dry dressing, 4 x 4s, gauze, Kerlix, ABD, and LIZZETH wrap. POSTOPERATIVE CONDITION: The patient tolerated the anesthesia and procedure well and was escorted to the recovery room with all vital signs stable and neurovascular status intact to left lower extremity. The patient is to remain nonweightbearing as tolerated to the left forefoot in surgical shoe. Podiatry will continue to follow the patient while in-house, and will be seen by Dr. Zamudio at his office upon discharge. Ashely BOUCHRA Mireles Adrian Arnold Banuelos DPM [facility] # [phone] [place]
[2018-04-19 07:26] LABS: HEMOGLOBIN 10.4 g/dL (12.0-18.0); MEAN CELL VOLUME 89.7 fL (80.0-94.0); MEAN CORPUSCULAR HEMOGLOBIN 30.5 pg (27.0-31.0); MEAN CORPUSCULAR HGB CONC 34.1 g/dL (33.0-37.0); MEAN PLATELET VOLUME 8.7 fL (7.2-11.7); RBC 3.42 Mil/uL (4.40-5.90); RED CELL DISTRIBUTION WIDTH 13.7 % (11.5-14.5)
[2018-04-19 07:32] LABS: CALCIUM 8.9 mg/dl (8.6-10.4)
[2018-04-19] MEDS: (Novolin R) Insulin Human Regular 100 units/ml vial SC SCH (07:55)
[2018-04-19 08:08] VITALS: BP 177/77; PULSE 105; TEMP 98; O2SAT 98
[2018-04-19] MEDS: Multivitamin Vitamin B Complex (Nephro-Vite) Tab PO SCH (08:32)
--- NOTE | 2018-04-19 08:56 | CP.PCM.PN ---
Subjective - Date & Time of Evaluation Date of Evaluation: 04/19/18 Time of Evaluation: 08:56 - Subjective Subjective: Podiatry - Dr. Tate 73 year old male patient seen and evaluated at bedside, POD#1 Left heel ulcer debridement. Patient resting comfortably at time of visit, NAD. Patient complains of moderate pain to surgical site, well-controlled via medication; has kept heel offloaded. Dressing to LLE clean/dry/intact. Denies n/v/f/d/c/sob/boyce /cp. Objective - Vital Signs/Intake and Output Vital Signs (last 24 hours): Temp Pulse Resp BP Pulse Ox 98 F 105 H 20 177/77 H 98 04/19/18 08:07 04/19/18 08:07 04/19/18 08:07 04/19/18 08:07 04/19/18 08:07 Intake and Output: 04/19/18 04/19/18 06:59 18:59 Intake Total 900 Output Total 450 Balance 450 - Medications Medications: Current Medications Acetaminophen (Tylenol 325mg Tab) 650 mg PO Q6 PRN PRN Reason: Pain, Mild (1-3) Apixaban (Eliquis) 2.5 mg PO BID [facility] Last Admin: 04/18/18 17:42 Dose: 2.5 mg Aspirin (Ecotrin) 81 mg PO DAILY [facility] Last Admin: 04/18/18 10:31 Dose: 81 mg Carvedilol (Coreg) 3.125 mg PO BID [facility] Last Admin: 04/18/18 17:09 Dose: 3.125 mg Docusate Sodium (Colace) 100 mg PO TID [facility] Last Admin: 04/18/18 17:10 Dose: 100 mg Ergocalciferol (Drisdol 50,000 Intl Units Cap) 1 cap PO Q7D [facility] Last Admin: 04/17/18 13:00 Dose: 1 cap Furosemide (Lasix) 40 mg PO DAILY [facility] Last Admin: 04/18/18 10:31 Dose: 40 mg Glipizide (Glucotrol) 5 mg PO BIDAC [facility] Last Admin: 04/19/18 08:31 Dose: 5 mg Hydromorphone HCl (Dilaudid) 0.5 mg IVP Q6H PRN PRN Reason: pain Last Admin: 04/19/18 06:36 Dose: 0.5 mg Piperacillin Sod/Tazobactam Sod (Zosyn 2.25 Gm Iv Premix) 2.25 gm in 50 mls @ 100 mls/hr IVPB Q6H [facility]; Protocol Last Admin: 04/19/18 05:41 Dose: 100 mls/hr Vancomycin HCl 1 gm/ Sodium (Chloride) 250 mls @ 166.7 mls/hr IVPB Q24H [facility]; Protocol Last Admin: 04/18/18 10:32 Dose: 166.7 mls/hr Insulin Human Regular (Novolin R) 0 unit SC ACHS [facility]; Protocol Last Admin: 04/18/18 17:10 Dose: 3 units Lactulose (Enulose) 20 gm PO DAILY PRN PRN Reason: Constipation Last Admin: 04/18/18 12:25 Dose: 20 gm Losartan Potassium (Cozaar) 100 mg PO DAILY [facility] Last Admin: 04/18/18 10:08 Dose: Not Given Oxycodone/Acetaminophen (Percocet 5/325 Mg Tab) 1 tab PO Q4H PRN PRN Reason: Pain, moderate (4-7) Stop: 04/21/18 09:01 Oxycodone/Acetaminophen (Percocet 5/325 Mg Tab) 2 tab PO Q4H PRN PRN Reason: Pain, severe (8-10) Stop: 04/21/18 09:01 Pregabalin (Lyrica) 50 mg PO DAILY [facility] Last Admin: 04/18/18 10:31 Dose: 50 mg Rosuvastatin Calcium (Crestor) 5 mg PO HS [facility] Last Admin: 04/18/18 21:49 Dose: 5 mg Vitamin B Complex/Vit C/Folic Acid (Nephro-Ale) 1 tab PO 0800 [facility] Last Admin: 04/19/18 08:32 Dose: 1 tab - Labs Labs: 04/19/18 07:09 04/19/18 07:09 PT 12.7 SECONDS (9.7-12.2) H 04/18/18 06:09 INR 1.2 04/18/18 06:09 APTT 40 SECONDS (21-34) H 04/18/18 06:09 - Constitutional Appears: Well, Non-toxic, No Acute Distress - Extremities Exam Additional comments: Left lower extremity focused physical exam: VASC: DP and PT pulses palpable 1/4. CFT <3 seconds to digits. Temperature gradient warm to warm. Nonpitting edema noted to left foot. DERM: Full thickness ulceration noted to posterolateral aspect of left heel with 80% granular and 20% fibrotic base; mild serosanguinous drainage present; no purulence noted; no fluctuance; periwound erythema present; no probe to bone; absent malodor NEURO: Protective sensation grossly diminished. ORTHO: Pain on palpation of left heel - Neurological Exam Neurological Exam: Alert, Awake, Oriented x3 - Psychiatric Exam Psychiatric exam: Normal Affect, Normal Mood Assessment and Plan - Assessment and Plan (Free Text) Assessment: 73M with nonhealing ulceration to left heel, POD#1 left heel wound debridement Plan: Patient seen and evaluated alongside attending, Dr. Tate Afebrile, WBC 11.0- likely reactive L foot XR: Moderate/severe ST swelling/cellulitis L heel wound culture: MRSA -Continue abx per ID - Vancomycin Activity: NWB LLE, OOB to commode privileges only Stable for dc per podiatry -Advised patient to keep dressing clean/dry/intact until home visit with Dr. Tate -Rx Zyvox 600mg PO BID x10 days per Dr. Guerrero, will be called into pharmacy
--- NOTE | 2018-04-20 16:08 | PN ---
DATE: 04/18/2018 IDENTIFICATION: The patient is 73-year-old male. SUBJECTIVE: The patient is seen and examined on 04/18/2018, looking comfortable status post left heel surgery, having pain in the left heel. No shortness of breath, no wheezing, no coughing, no chest pain, no orthopnea, no palpitation, no abdominal pain, no headache, no dizziness, no swelling of the legs, only pain in the left heel. PHYSICAL EXAMINATION: VITAL SIGNS: Temperature 98.2, pulse 77, respiratory rate 15, blood pressure 160/76, and pulse oximetry 98%. HEENT: Head: Normocephalic and atraumatic. Eyes: PERRLA. Extraocular muscles intact. Conjunctivae are clear. Nose is patent. NECK: Supple. No carotid bruit, JVD, or thyromegaly. CHEST: Bilaterally symmetrical. HEART: S1 and S2 positive. LUNGS: Clear to auscultation. ABDOMEN: Soft. Bowel sounds present. No organomegaly. EXTREMITIES: No edema. No cyanosis except left heel had dressing. NEUROLOGIC: The patient is awake and alert, follows simple commands MEDICATIONS: Tylenol, Eliquis, Ecotrin, Coreg, Colace, Dilaudid, Zosyn, and Cozaar. LABORATORY DATA: White blood cell count 9.4, hemoglobin 10.4, hematocrit 31.1, platelets 283. Sodium 139, potassium 5, BUN 36, creatinine 1, and glucose 175. ASSESSMENT AND PLAN: Mr. Jules Campo is a 73-year-old male with diabetic foot ulcer, diabetic neuropathy, renal insufficiency, diabetes mellitus, history of congestive heart failure, history of cerebrovascular accident, and obesity, has nonhealing ulcer on the left heel, got debridements from Podiatry. ID was called, gave Zosyn and vancomycin, wanted to follow with cultures and will decide antibiotics according to that. Discussion done with the patient's and nursing staff. Repeat labs and we will follow up. Zuleima Jackson MD
== END 2018-04-19 12:20 | disposition home or self-care (01) | DRG 638 ==
LOC: C.ER 07:07 → C.9E 08:30 → C.3T 09:18
PROVIDERS: ADMIT Internal Medicine; ATTEND Internal Medicine
PROC: 0HBNXZZ Excision of Left Foot Skin, External Approach (ICD-10-PCS; principal; 2018-04-18 07:30)
DX: E11.621 Type 2 diabetes mellitus with foot ulcer (principal); L03.90 Cellulitis, unspecified; L97.429 Non-pressure chronic ulcer of left heel and midfoot with unspecified severity; E11.40 Type 2 diabetes mellitus with diabetic neuropathy, unspecified; E11.65 Type 2 diabetes mellitus with hyperglycemia; E78.00 Pure hypercholesterolemia, unspecified; E87.5 Hyperkalemia; I11.0 Hypertensive heart disease with heart failure; I25.10 Atherosclerotic heart disease of native coronary artery without angina pectoris; I50.9 Heart failure, unspecified; D64.9 Anemia, unspecified; N28.9 Disorder of kidney and ureter, unspecified; Z86.73 Personal history of transient ischemic attack (TIA), and cerebral infarction without residual deficits; Z95.5 Presence of coronary angioplasty implant and graft

== ENCOUNTER 2018-06-04 06:12 | Inpatient (IN) | payer MEDICARE, BC ==
[2018-06-04 06:12] VITALS: BMI 42.9
--- NOTE | 2018-06-04 08:00 | C.PDOC ---
History Of Present Illness 73 year old male presents to the ED for evaluation after being referred by Dr. Aragon for worsening left foot diabetic foot ulcer since 02/2018. Patient is s/p unknown antibiotics and debridement but no improvement. Patient denies fever, chills. REFERRED BY DR ARAGON FOR WORSENING L FOOT DFU SINCE 02/2018. S/P UNK ABX AND DEBRIDEMENT BUT NO IMPROVE. NO FEVER, CHILLS EXAM NAD EXT AROM WO DIFF SKIN L FOOT DFU REMAINDER NEG PER OLD RECORDS, HO L FOOT ULCER +MRSA SP Rx Zyvox 600mg PO BID x10 days Time Seen by Provider: 06/04/18 07:29 Chief Complaint (Nursing): Lower Extremity Problem/Injury History Per: Patient History/Exam Limitations: no limitations Current Symptoms Are (Timing): Still Present Past Medical History Vital Signs: Last Vital Signs Temp 98 F 06/04/18 06:20 Pulse 93 H 06/04/18 06:20 Resp 20 06/04/18 06:20 BP 154/83 H 06/04/18 06:20 Pulse Ox 98 06/04/18 06:20 - Medical History PMH: Anemia, Arthritis, Diabetes, HTN, Hypercholesterolemia, Hyperlipidemia, Peripheral Edema Surgical History: Coronary Stent (X1) - [facility] Procedures DETACHMENT AT RIGHT 1ST TOE, COMPLETE, OPEN APPROACH (01/30/17) DETACHMENT AT RIGHT 1ST TOE, HIGH, OPEN APPROACH (01/30/17) DILATION OF RIGHT PERONEAL ARTERY, PERCUTANEOUS APPROACH (12/26/16) EXCISION OF LEFT FOOT SKIN, EXTERNAL APPROACH (04/17/18) EXTIRPATION OF MATTER FROM R PERONEAL ART, PERC APPROACH (12/26/16) INSERTION OF INTRALUM DEV INTO R FEM ART, PERC APPROACH (12/26/16) INSPECTION OF BLADDER, ENDO (06/21/15) RESECTION OF PROSTATE, ENDO (06/21/15) ULTRASONOGRAPHY OF RIGHT AND LEFT HEART, TRANSESOPHAGEAL (10/12/16) Family History: States: Unknown Family Hx - Social History Hx Alcohol Use: No Hx Substance Use: No - Immunization History Hx Tetanus Toxoid Vaccination: No Hx Influenza Vaccination: Yes Hx Pneumococcal Vaccination: Yes Review Of Systems Skin: Positive for: Other (diabetic foot ulcer ) Physical Exam - Physical Exam Appears: Non-toxic, No Acute Distress Skin: Normal Color, Dry, Other (left foot diabetic foot ulcer) Head: Atraumatic, Normacephalic Eye(s): bilateral: Normal Inspection Oral Mucosa: Moist Neck: Supple Chest: Symmetrical, No Deformity, No Tenderness Cardiovascular: Rhythm Regular, No Murmur Respiratory: Normal Breath Sounds, No Rales, No Rhonchi, No Wheezing Extremity: Normal ROM, Capillary Refill (less than 2 seconds ) Neurological/Psych: Oriented x3, Normal Speech, Normal Cognition ED Course And Treatment - Laboratory Results Result Diagrams: 06/04/18 08:43 06/04/18 08:43 ECG: Interpreted By Me, Viewed By Me ECG Rhythm: Sinus Rhythm Interpretation Of ECG: PAC, 1st degree block Rate From EC O2 Sat by Pulse Oximetry: 98 (RA) Pulse Ox Interpretation: Normal - Radiology CXR: Interpreted by Me CXR Interpretation: Yes: No Acute Disease - Other Rad L FOOT X-Ray: Interpreted by Me (NEG) Progress - Re-Evaluation Re-evaluation Note: 06/04/18 07:59 D/W PODIATRY RESIDENT WILL EVAL IN ER - Data Reviewed Data Reviewed: Lab, Diagnostic imaging, EKG, Old records Disposition Counseled Patient/Family Regarding: Studies Performed, Diagnosis - Disposition Disposition: HOSPITALIZED Disposition Time: 09:12 Condition: STABLE - POA Present On Arrival: Poor Glycemic Control, Pressure Ulcer - Clinical Impression Clinical Impression: Diabetic foot ulcer - Scribe Statement The provider has reviewed the documentation as recorded by the Scribe (Maura Green) Provider Attestation: All medical record entries made by the Scribe were at my direction and personally dictated by me. I have reviewed the chart and agree that the record accurately reflects my personal performance of the history, physical exam, medical decision making, and the department course for this patient. I have also personally directed, reviewed, and agree with the discharge instructions and disposition.
[2018-06-04 08:46] LABS: BASO # 0.1 K/uL (0.0-0.2); BASO % 0.8 % (0.0-2.0); EOS # 0.3 K/uL (0.0-0.7); EOS % 2.5 % (0.0-4.0); HEMOGLOBIN 10.2 g/dL (12.0-18.0); LYMPH % 15.6 % (20.0-40.0); MEAN CELL VOLUME 90.7 fL (80.0-94.0); MEAN CORPUSCULAR HEMOGLOBIN 30.2 pg (27.0-31.0); MEAN CORPUSCULAR HGB CONC 33.3 g/dL (33.0-37.0); MEAN PLATELET VOLUME 8.8 fL (7.2-11.7); MONO # 0.9 K/uL (0.0-0.8); MONO % 7.4 % (0.0-10.0); NEUT # 9.4 K/uL (1.8-7.0); NEUT % 73.7 % (50.0-75.0); RBC 3.39 Mil/uL (4.40-5.90); RED CELL DISTRIBUTION WIDTH 13.8 % (11.5-14.5); WHITE BLOOD COUNT 12.7 K/uL (4.8-10.8)
[2018-06-04] MEDS ORDERED: Piperacillin/Tazobact 3.375 gm 100 ML IV STA (09:10)
[2018-06-04 09:11] LABS: ALBUMIN 3.9 g/dL (3.5-5.0); CALCIUM 9.1 mg/dl (8.6-10.4)
[2018-06-04] MEDS ORDERED: Piperacillin/Tazobact 3.375 gm 100 ML IVPB ONE (09:31)
--- NOTE | 2018-06-04 10:24 | RAD ---
Date of service: 06/04/2018 PROCEDURE: Left Foot Radiographs. HISTORY: FOOT ULCER COMPARISON: None. FINDINGS: BONES: No fracture or lytic lesion seen. No cortical destruction or periosteal reaction apparent. Minimal inferior calcaneal spurring. Trace Moorcroft's tendon insetional enesthesophyte. JOINTS: Hammertoe orientations noted. Mild valgus orientation. Minimal 1st metatarsal-phalangeal joint arthrosis valgus orientation to the 2nd and 3rd metatarsals most notably. SOFT TISSUES: There is some radiolucency it is unclear if this is technical or if this is the site of the ulcer projecting posterior to the calcaneus. Most of the soft tissue swelling is around the forefoot. The precise site of the ulcer is not clear on these images. Atherosclerotic vascular calcifications present. OTHER FINDINGS: None. IMPRESSION: No periosteal reaction or cortical destruction to suggest osteomyelitis. Diffuse soft tissue swelling compatible with lymphedema and/or cellulitis. Other findings as above.
--- NOTE | 2018-06-04 11:24 | RAD ---
Date of service: 06/04/2018 PROCEDURE: CHEST RADIOGRAPH, 1 VIEW HISTORY: MED CLEAR COMPARISON: 04/17/2018 FINDINGS: LUNGS: No interval consolidation seen. PLEURA: No pneumothorax or pleural fluid seen. CARDIOVASCULAR: There is presence of aortic atherosclerotic calcification on x-ray. Cardiomegaly. No significant appearing pulmonary venous congestion. OSSEOUS STRUCTURES: No significant abnormalities. VISUALIZED UPPER ABDOMEN: Normal. OTHER FINDINGS: None. IMPRESSION: Cardiomegaly and aortic atherosclerotic vascular disease. No interval change in this regard seen No acute pulmonary pathology seen.
--- NOTE | 2018-06-04 14:16 | CP.PCM.CON ---
History of Present Illness - History of Present Illness History of Present Illness: INFECTIOUS DISEASE CONSULT; HPI; 73 year old male presents to the ED for evaluation after being referred by Dr. Koehler for worsening left foot diabetic foot ulcer since 02/2018. Patient is s/p unknown antibiotics and debridement but no improvement. Patient denies fever, chills. PER OLD RECORDS, HO L FOOT ULCER +MRSA SP Rx Zyvox 600mg PO BID x10 days. PATIENT WAS FOUND TO HAVE NO IMPROVEMENT AND WAS SENT BY PODIATRY FOR REPEAT WOUND CULTURES AND iv ANTIBIOTICS. pATIENT A POOR HISTORIAN AND FORGETFUL. uNABLE TO GIVE ANY DETAILS. Infectious disease consult requested by PMD for evaluation of his nonhealing wound ulcer left heel. PATIENT ALSO HAD DEBRIDEMENT OF THE LEFT HEEL ULCER. dURING HIS LAST ADMISSION. PATIENT HAS HISTORY OFF RIGHT FIRST TOE AMPUTATION 01/2017 PMH: Anemia, Arthritis, Diabetes, HTN, Hypercholesterolemia, Hyperlipidemia, Peripheral Edema, MULTIFOCAL CVA'S Surgical History: Coronary Stent (X1)DRUG-ELUTING CARDIAC STENT 02/2017, HX TURP X2 Family History: States: No Known Family Hx - Social History Hx Alcohol Use: No Hx Substance Use: No - Immunization History Hx Tetanus Toxoid Vaccination: No Hx Influenza Vaccination: Yes Hx Pneumococcal Vaccination: Yes ALLERGY; NKA. Review of Systems - Constitutional Constitutional: absent: Chills, Fever - EENT Eyes: absent: Change in Vision Nose/Mouth/Throat: absent: Mouth Lesions - Cardiovascular Cardiovascular: absent: Chest Pain - Respiratory Respiratory: absent: Cough, Dyspnea - Gastrointestinal Gastrointestinal: absent: Abdominal Pain, Constipation, Diarrhea - Genitourinary Genitourinary: absent: Dysuria - Neurological Neurological: As Per HPI, Weakness (left side) - Hematologic/Lymphatic Hematologic: As Per HPI. absent: Easy Bleeding, Easy Bruising, Lymphadenopathy Past Patient History - Infectious Disease Hx of Infectious Diseases: None - Past Medical History & Family History Past Medical History?: Yes - Past Social History Smoking Status: Never Smoked - CARDIAC Hx Hypercholesterolemia: Yes Hx Hypertension: Yes Hx Peripheral Edema: Yes - NEUROLOGICAL Hx Neurological Disorder: Yes HX Cerebrovascular Accident: Yes - HEENT Hx HEENT Problems: Yes Hx Cataracts: Yes (BILAT.) - ENDOCRINE/METABOLIC Hx Endocrine Disorders: Yes Hx Diabetes Mellitus Type 2: Yes - HEMATOLOGICAL/ONCOLOGICAL Hx Anemia: Yes - INTEGUMENTARY Hx Dermatological Problems: Yes - MUSCULOSKELETAL/RHEUMATOLOGICAL Hx Arthritis: Yes - GASTROINTESTINAL Hx Gastrointestinal Disorders: Yes - GENITOURINARY/GYNECOLOGICAL Hx Prostate Problems: Yes - PSYCHIATRIC Hx Substance Use: No - SURGICAL HISTORY Hx Coronary Stent: Yes (X1) - ANESTHESIA Hx Anesthesia: Yes Hx Anesthesia Reactions: No Hx Malignant Hyperthermia: No Meds Allergies/Adverse Reactions: Allergies Allergy/AdvReac Type Severity Reaction Status Date / Time No Known Allergies Allergy Verified 06/04/18 06:24 Physical Exam - Constitutional Appears: No Acute Distress Additional comments: MORBIDLY OBESE - Head Exam Head Exam: NORMAL INSPECTION - Eye Exam Eye Exam: EOMI, PERRL - ENT Exam ENT Exam: Normal Oropharynx - Neck Exam Neck exam: Positive for: Normal Inspection - Respiratory Exam Respiratory Exam: Clear to Auscultation Bilateral - Cardiovascular Exam Cardiovascular Exam: REGULAR RHYTHM, +S1, +S2 - GI/Abdominal Exam GI & Abdominal Exam: Normal Bowel Sounds, Soft - Extremities Exam Extremities exam: Positive for: pedal edema (LT SIDE ), tenderness (Ulceration site noted to plantar heel measuring roughly 3 cm x 2 cm x 0.4 cm with minimal amounts of serous drainage appreciated. Wound base is a mix of fibronecrotic tissue with granular tissue mixed in. No tracking, tunneling or undermining appreciated. No other clinical signs of infection noted). Negative for: calf tenderness - Neurological Exam Neurological exam: Alert, CN II-XII Intact, Oriented x3 - Psychiatric Exam Psychiatric exam: Normal Mood - Skin Skin Exam: Normal Color, Warm Results - Vital Signs Recent Vital Signs: Last Vital Signs Temp 97.3 F L 06/04/18 13:12 Pulse 94 H 06/04/18 13:12 Resp 20 06/04/18 13:12 BP 151/88 H 06/04/18 13:12 Pulse Ox 98 06/04/18 14:08 - Labs Result Diagrams: 06/05/18 07:13 06/05/18 07:13 Labs: Laboratory Results - last 24 hr 06/04/18 06/04/18 08:43 08:43 WBC 12.7 H RBC 3.39 L Hgb 10.2 L Hct 30.7 L MCV 90.7 MCH 30.2 MCHC 33.3 RDW 13.8 Plt Count 259 MPV 8.8 Neut % (Auto) 73.7 Lymph % (Auto) 15.6 L [place] % (Auto) 7.4 Eos % (Auto) 2.5 Baso % (Auto) 0.8 Neut # (Auto) 9.4 H Lymph # (Auto) 2.0 [place] # (Auto) 0.9 H Eos # (Auto) 0.3 Baso # (Auto) 0.1 Sodium 138 Potassium 5.2 Chloride 102 Carbon Dioxide 29 Anion Gap 13 BUN 42 H Creatinine 1.7 H Est GFR ( Amer) 48 Est GFR (Non-Af Amer) 40 Random Glucose 106 D Calcium 9.1 Total Bilirubin 0.4 AST 21 ALT 13 L D Alkaline Phosphatase 63 Total Protein 7.7 Albumin 3.9 Globulin 3.8 Albumin/Globulin Ratio 1.0 - Imaging and Cardiology XRAY LT. FOOT Status: Report reviewed by me Assessment & Plan (1) Diabetic foot ulcer Status: Acute (2) Diabetic neuropathy Status: Acute (3) Renal insufficiency Status: Acute (4) Diabetes mellitus Status: Chronic (5) CVA (cerebrovascular accident) Assessment and Plan: old cva with left sided weakness. Status: Acute - Assessment and Plan (Free Text) Plan: PLAN PANCULTURE. WOUND CULTURE. ESR CRP CONTINUE IV ZOSYN 3.375 EVERY 8 HOURLY.06/04/18 cONTINUE iv VANCOMYCIN 1 G EVERY 24 HOURLY.06/04/18 F/U VANCO -TROUGH PRIOR TO THE THIRD DOSE AND KEEP BETWEEN 10 AND 20MG/ML mONITOR RENAL FUNCTIONS CLOSELY. PATIENT WILL NEED DEBRIDEMENT PER PODIATRY AND LOCAL WOUND CARE. WILL FOLLOW THE PATIENT WHILE IN HOSPITAL. THANK YOU FOR ALLOWING ME TO PARTICIPATE IN THE CARE OF YOUR PATIENT.
[2018-06-04] MEDS ORDERED: Vancomycin 1 GM 1 GM/250 ML BAG IVPB ONE (16:54)
[2018-06-04] MEDS ORDERED: (Novolin R) Insulin Human Regular 100 units/ml vial ONE (18:19)
[2018-06-04] MEDS: Piperacill/Tazo 3.375gm in Dex 3.375 GM/50 ML BAG IVPB SCH (19:00)
--- NOTE | 2018-06-04 19:49 | CP.PCM.CON ---
History of Present Illness - History of Present Illness History of Present Illness: Podiatry Consult Note for Dr. Tariq 73M seen in ED after being sent to hospital by Dr. Tariq. Per Dr. Tariq, patient has been receiving oral antibiotics for an infected left heel ulceration that has not been responding to the antibiotic regimen. Dr. Tariq would like a wound culture taken and IV antibiotics to be initiated. Patient is AAO x 3 and NAD at time of visit. States that he has minimal pain to the ulceration site. Denies any further pedal complaints at this time. Denies any recent N/V/F/C/CP/SOB/D Review of Systems - Review of Systems All systems: reviewed and no additional remarkable complaints except Review of Systems: as per HPI Past Patient History - Infectious Disease Hx of Infectious Diseases: None - Past Medical History & Family History Past Medical History?: Yes - Past Social History Smoking Status: Never Smoked - CARDIAC Hx Hypercholesterolemia: Yes Hx Hypertension: Yes Hx Peripheral Edema: Yes - PULMONARY Hx Respiratory Disorders: No - NEUROLOGICAL Hx Neurological Disorder: Yes - HEENT Hx HEENT Problems: Yes Hx Cataracts: Yes (BILAT.) - ENDOCRINE/METABOLIC Hx Endocrine Disorders: Yes Hx Diabetes Mellitus Type 2: Yes - HEMATOLOGICAL/ONCOLOGICAL Hx Anemia: Yes - INTEGUMENTARY Other/Comment: HX: 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 DONE + R foot/heel ulcer - MUSCULOSKELETAL/RHEUMATOLOGICAL Hx Arthritis: Yes - GASTROINTESTINAL Hx Gastrointestinal Disorders: No - GENITOURINARY/GYNECOLOGICAL Other/Comment: HX: OVERACTIVE BLADDER - PSYCHIATRIC Hx Substance Use: No - SURGICAL HISTORY Hx Coronary Stent: Yes (X1) - ANESTHESIA Hx Anesthesia: Yes Hx Anesthesia Reactions: No Hx Malignant Hyperthermia: No Meds Allergies/Adverse Reactions: Allergies Allergy/AdvReac Type Severity Reaction Status Date / Time No Known Allergies Allergy Verified 06/04/18 06:24 - Medications Medications: Current Medications Vancomycin HCl 1 gm/ Sodium (Chloride) 250 mls @ 166.7 mls/hr IVPB Q24H RORO; Protocol Last Admin: 06/04/18 16:56 Dose: 166.7 mls/hr Piperacillin Sod/Tazobactam Sod (Zosyn 3.375 Gm Iv Premix) 3.375 gm in 50 mls @ 100 mls/hr IVPB Q8H RORO; Protocol Last Admin: 06/04/18 19:00 Dose: 100 mls/hr Insulin Human Regular (Novolin R) 0 unit SC ACHS RORO; Protocol Physical Exam - Constitutional Appears: Well, Non-toxic, No Acute Distress - Extremities Exam Additional comments: LLE focused exam: Vasc: DP/PT pulses fully palpable 2/4 b/l. Skin temperature warm to warm from proximal to distal. CFT < 3 seconds to all digits. Minimal edema noted around ulceration site Neuro: Epicritic and protective sensation grossly diminished b/l Derm: Ulceration site noted to plantar heel measuring roughly 3 cm x 2 cm x 0.4 cm with minimal amounts of serous drainage appreciated. Wound base is a mix of fibronecrotic tissue with granular tissue mixed in. No tracking, tunneling or undermining appreciated. No other clinical signs of infection noted MSK: Pain with palpation to ulceration site - Neurological Exam Neurological exam: Alert, Oriented x3 - Psychiatric Exam Psychiatric exam: Normal Affect, Normal Mood Results - Vital Signs Recent Vital Signs: Last Vital Signs Temp 98.2 F 06/04/18 19:30 Pulse 92 H 06/04/18 19:30 Resp 19 06/04/18 19:30 BP 189/93 H 06/04/18 19:30 Pulse Ox 99 06/04/18 19:30 - Labs Result Diagrams: 06/04/18 08:43 06/04/18 08:43 Labs: Laboratory Results - last 24 hr 06/04/18 06/04/18 06/04/18 08:43 08:43 08:43 WBC 12.7 H RBC 3.39 L Hgb 10.2 L Hct 30.7 L MCV 90.7 MCH 30.2 MCHC 33.3 RDW 13.8 Plt Count 259 MPV 8.8 Neut % (Auto) 73.7 Lymph % (Auto) 15.6 L [place] % (Auto) 7.4 Eos % (Auto) 2.5 Baso % (Auto) 0.8 Neut # (Auto) 9.4 H Lymph # (Auto) 2.0 [place] # (Auto) 0.9 H Eos # (Auto) 0.3 Baso # (Auto) 0.1 ESR 58 H Sodium 138 Potassium 5.2 Chloride 102 Carbon Dioxide 29 Anion Gap 13 BUN 42 H Creatinine 1.7 H Est GFR ( Amer) 48 Est GFR (Non-Af Amer) 40 POC Glucose (mg/dL) Random Glucose 106 D Calcium 9.1 Total Bilirubin 0.4 AST 21 ALT 13 L D Alkaline Phosphatase 63 Total Protein 7.7 Albumin 3.9 Globulin 3.8 Albumin/Globulin Ratio 1.0 06/04/18 17:44 WBC RBC Hgb Hct MCV MCH MCHC RDW Plt Count MPV Neut % (Auto) Lymph % (Auto) [place] % (Auto) Eos % (Auto) Baso % (Auto) Neut # (Auto) Lymph # (Auto) [place] # (Auto) Eos # (Auto) Baso # (Auto) ESR Sodium Potassium Chloride Carbon Dioxide Anion Gap BUN Creatinine Est GFR ( Amer) Est GFR (Non-Af Amer) POC Glucose (mg/dL) 307 H Random Glucose Calcium Total Bilirubin AST ALT Alkaline Phosphatase Total Protein Albumin Globulin Albumin/Globulin Ratio Assessment & Plan - Assessment and Plan (Free Text) Assessment: 73M seen in ED for an infected left heel ulceration that has not been responding to the antibiotic regimen Plan: Patient seen and evaluated Plan discussed with Dr. Tariq WBC 12.7 Infectious disease consulted IV abx per ID Wound culture taken, results pending Left foot xray: No evidence of acute osteomyelitis Wound dressed with betadine, DSD No plan for surgical intervention at this time Podiatry will continue to follow while patient in house - Date & Time Date: 06/04/18 Time: 16:00
[2018-06-04] MEDS ORDERED: Ergocalciferol 50,000 Intl Units Cap PO SCH (21:45)
[2018-06-04] MEDS: (Novolin R) Insulin Human Regular 100 units/ml vial SC SCH (23:00)
[2018-06-05] MEDS: Piperacill/Tazo 3.375gm in Dex 3.375 GM/50 ML BAG IVPB SCH ×3 (00:39→17:58)
[2018-06-05 01:25] VITALS: RESP 20
--- NOTE | 2018-06-05 07:08 | HP ---
The patient was seen and examined at the bedside on 06/04/2018. CHIEF COMPLAINT: Foot pain. HISTORY OF PRESENT ILLNESS: Mr. Jules Campo is a 73-year-old male well known to me from his previous admissions. He was sent to emergency room by his maintenance representative, Dr. Zamudio for worsening left foot diabetic foot ulcers. The patient is status post antibiotic debridement, but not improving. Actually, the patient's called me yesterday about the patient's foot condition and maintenance representative wants to do surgery when the patient is in the hospital. No fever. No chills. No hematuria or hematochezia. No headache or dizziness. No chest pain. No palpitation. PAST MEDICAL HISTORY: Opacity, diabetes mellitus, diabetic foot. HABITS: Never smoked. No drugs. No ethanol. ALLERGIES: THE PATIENT IS NOT ALLERGIC WITH ANY MEDICATIONS. HOME MEDICATIONS: Reviewed by me. REVIEW OF SYSTEMS: The patient was seen and examined at the bedside, looking comfortable. No fever. No chills. No hematuria. No hematochezia. No headache. No dizziness. PHYSICAL EXAMINATION VITAL SIGNS: Temperature 98.2, pulse 92, respiratory rate 19, blood pressure 180/93, pulse oximetry 99. HEENT: Head normocephalic and atraumatic. Eyes, PERRLA. Extraocular muscles are intact. Conjunctivae clear. Nose patent. NECK: Supple. No carotid bruits. No JVD or thyromegaly. CHEST: Bilaterally symmetrical. HEART: S1 and S2 positive. LUNGS: Clear to auscultation. ABDOMEN: Soft. Bowel sounds present. No organomegaly. EXTREMITIES: No edema. No cyanosis. NEUROLOGIC: The patient is awake and alert, follows simple commands. LABORATORY DATA: White blood cells 12.7, hemoglobin 10, hematocrit 30.7, and platelets 259. Sodium 138, potassium 5.2, BUN 42, creatinine 1.7, and glucose 106. ASSESSMENT AND PLAN: Ms. Jules Campo is a 73-year-old male with leukocytosis, anemia, renal insufficiency, has infected left heel ulceration that has not been responding to the antibiotics, local debridement. Infectious Disease is on the case. Podiatry is on the case. Wound cultures are done. Results are pending. Last x-ray done, no evidence of acute osteomyelitis. Wound dressing with Betadine done by the podiatry and according to podiatry, there is no plan of surgery right now, want to continue present treatment. History of diabetes mellitus, hypertension, obesity, peripheral vascular disease, noncompliant, diabetic foot ulcers. the patient to treatment with wound debridement and antibiotics, history of arthritis, hypertension, cholesterolemia, hyperlipidemia, multifocal cerebrovascular accidents, history of coronary artery stents x2. Gastrointestinal and deep vein thrombosis prophylaxis. Repeat labs. Put on sliding scale. We will adjust blood pressure medication. Zuleima Jcakson MD MTDD
[2018-06-05 07:23] LABS: HEMOGLOBIN 10.6 g/dL (12.0-18.0); MEAN CELL VOLUME 91.2 fL (80.0-94.0); MEAN CORPUSCULAR HEMOGLOBIN 30.4 pg (27.0-31.0); MEAN CORPUSCULAR HGB CONC 33.3 g/dL (33.0-37.0); RBC 3.48 Mil/uL (4.40-5.90); RED CELL DISTRIBUTION WIDTH 13.8 % (11.5-14.5); WHITE BLOOD COUNT 12.1 K/uL (4.8-10.8)
[2018-06-05 07:40] LABS: IRON 23 ug/dL (49-181)
[2018-06-05 07:41] LABS: ALBUMIN 3.8 g/dL (3.5-5.0); CALCIUM 9.1 mg/dl (8.6-10.4)
[2018-06-05 07:48] LABS: % IRON SATURATION 8 (20-55); TOTAL IRON BINDING CAPACITY 289 ug/dL (250-450)
[2018-06-05] MEDS: Multivitamin Vitamin B Complex (Nephro-Vite) Tab PO SCH (08:24)
[2018-06-05] MEDS: (Novolin R) Insulin Human Regular 100 units/ml vial SC SCH ×4 (08:25→21:43)
[2018-06-05] MEDS ORDERED: Morphine 4 MG/ML VIAL IVP ONE (09:30)
[2018-06-05] MEDS ORDERED: Morphine 4 MG/ML VIAL IVP PRN (12:00)
--- NOTE | 2018-06-05 12:10 | CP.PCM.PN ---
Subjective - Date & Time of Evaluation Date of Evaluation: 06/05/18 Time of Evaluation: 12:10 - Subjective Subjective: AFEBRILE, NO ACUTE EVENTS OVERNIGHT. LT FOOT /HEEL IN DRESSING RESTING COMFORTABLE. LABS ; NOTED ESR 115. WOUND CULTURE +VE GRAM +VE COCCI. BLOOD CULTURES -VE X 24HRS. PT ON IV ZOSYN IV VANCOMYCIN Objective - Vital Signs/Intake and Output Vital Signs (last 24 hours): Temp Pulse Resp BP Pulse Ox 98.1 F 80 20 148/86 96 06/05/18 08:26 06/05/18 08:26 06/05/18 08:26 06/05/18 09:28 06/05/18 08:26 Intake and Output: 06/05/18 06/05/18 06:59 18:59 Intake Total 250 Balance 250 - Medications Medications: Current Medications Apixaban (Eliquis) 2.5 mg PO BID [facility] Last Admin: 06/05/18 09:22 Dose: 2.5 mg Aspirin (Ecotrin) 81 mg PO DAILY [facility] Last Admin: 06/05/18 09:22 Dose: 81 mg Bisacodyl (Dulcolax) 10 mg [place] DAILY PRN PRN Reason: Constipation Carvedilol (Coreg) 3.125 mg PO BID [facility] Last Admin: 06/05/18 09:27 Dose: 3.125 mg Docusate Sodium (Colace) 100 mg PO TID [facility] Last Admin: 06/05/18 09:22 Dose: 100 mg Ergocalciferol (Drisdol 50,000 Intl Units Cap) 1 cap PO Q7D [facility] Last Admin: 06/04/18 23:11 Dose: 1 cap Furosemide (Lasix) 40 mg PO DAILY [facility] Last Admin: 06/05/18 09:28 Dose: 40 mg Glipizide (Glucotrol) 5 mg PO BID [facility] Last Admin: 06/05/18 09:22 Dose: 5 mg Vancomycin HCl 1 gm/ Sodium (Chloride) 250 mls @ 166.7 mls/hr IVPB Q24H [facility]; Protocol Last Admin: 06/04/18 16:56 Dose: 166.7 mls/hr Piperacillin Sod/Tazobactam Sod (Zosyn 3.375 Gm Iv Premix) 3.375 gm in 50 mls @ 100 mls/hr IVPB Q8H [facility]; Protocol Last Admin: 06/05/18 10:00 Dose: 100 mls/hr Insulin Human Regular (Novolin R) 0 unit SC ACHS [facility]; Protocol Last Admin: 06/05/18 08:25 Dose: 1 unit Lactulose (Enulose) 20 gm PO DAILY PRN PRN Reason: Constipation Losartan Potassium (Cozaar) 100 mg PO DAILY [facility] Last Admin: 06/05/18 09:22 Dose: 100 mg Morphine Sulfate (Morphine) 2 mg IVP Q4 PRN PRN Reason: Pain, severe (8-10) Pregabalin (Lyrica) 50 mg PO DAILY [facility] Last Admin: 06/05/18 09:22 Dose: 50 mg Rosuvastatin Calcium (Crestor) 5 mg PO HS [facility] Last Admin: 06/04/18 23:11 Dose: 5 mg Vitamin B Complex/Vit C/Folic Acid (Nephro-Ale) 1 tab PO 0800 [facility] Last Admin: 06/05/18 08:24 Dose: 1 tab - Labs Labs: 06/05/18 07:13 06/05/18 07:13 - Constitutional Appears: No Acute Distress - Head Exam Head Exam: NORMAL INSPECTION - Eye Exam Eye Exam: EOMI, PERRL - ENT Exam ENT Exam: Normal Oropharynx - Neck Exam Neck Exam: Normal Inspection - Respiratory Exam Respiratory Exam: Decreased Breath Sounds, NORMAL BREATHING PATTERN - Cardiovascular Exam Cardiovascular Exam: REGULAR RHYTHM, +S1, +S2 - GI/Abdominal Exam GI & Abdominal Exam: Soft, Normal Bowel Sounds. absent: Organomegaly - Extremities Exam Extremities Exam: Pedal Edema (LT FOOT. LT FOOT IN DRESSING.). absent: Calf Tenderness - Neurological Exam Neurological Exam: Awake, CN II-XII Intact (LT SIDED WEAKNESS.), Oriented x3 - Psychiatric Exam Psychiatric exam: Normal Mood - Skin Skin Exam: Normal Color, Warm Assessment and Plan (1) Diabetic foot ulcer Status: Acute (2) Diabetic neuropathy Status: Acute (3) Renal insufficiency Status: Acute (4) Diabetes mellitus Status: Chronic (5) CVA (cerebrovascular accident) Status: Acute - Assessment and Plan (Free Text) Plan: CONTINUE IV ZOSYN 3.375 EVERY 8 HOURLY.06/04/18 cONTINUE iv VANCOMYCIN 1 G EVERY 24 HOURLY.06/04/18 F/U VANCO -TROUGH PRIOR TO THE THIRD DOSE AND KEEP BETWEEN 10 AND 20MG/ML mONITOR RENAL FUNCTIONS CLOSELY. PATIENT WILL NEED DEBRIDEMENT PER PODIATRY AND LOCAL WOUND CARE. F/U CULTURE TO ADJUST ABX .
--- NOTE | 2018-06-05 12:42 | CARD ---
APPROVED REPORT Date of service: 06/04/2018 EKG Measurement Heart [id number] <Conclusion> Sinus rhythm with 1st degree AV block with premature atrial complexes Cannot rule out Anterior infarct, age undetermined Abnormal ECG
[2018-06-05 14:43] LABS: FOLATE 18.2 ng/mL
--- NOTE | 2018-06-05 16:27 | CP.PCM.PN ---
Subjective - Date & Time of Evaluation Date of Evaluation: 06/05/18 Time of Evaluation: 09:30 - Subjective Subjective: Podiatry Progress Note for Dr. Tariq 73M seen and evaluated at bedside for left foot heel ulceration accompanied by his . Patient is AAO x 3 and NAD, resting comfortably in bed. Denies any acute overnight events or new pedal complaints. Denies any recent N/V/F/C/CP/SOB/D Objective - Vital Signs/Intake and Output Vital Signs (last 24 hours): Temp Pulse Resp BP Pulse Ox 98.1 F 80 20 148/86 96 06/05/18 08:26 06/05/18 08:26 06/05/18 08:26 06/05/18 09:28 06/05/18 08:26 Intake and Output: 06/05/18 06/05/18 06:59 18:59 Intake Total 250 780 Balance 250 780 - Medications Medications: Current Medications Apixaban (Eliquis) 2.5 mg PO BID [facility] Last Admin: 06/05/18 09:22 Dose: 2.5 mg Aspirin (Ecotrin) 81 mg PO DAILY [facility] Last Admin: 06/05/18 09:22 Dose: 81 mg Bisacodyl (Dulcolax) 10 mg [place] DAILY PRN PRN Reason: Constipation Carvedilol (Coreg) 3.125 mg PO BID [facility] Last Admin: 06/05/18 09:27 Dose: 3.125 mg Docusate Sodium (Colace) 100 mg PO TID [facility] Last Admin: 06/05/18 13:30 Dose: 100 mg Ergocalciferol (Drisdol 50,000 Intl Units Cap) 1 cap PO Q7D [facility] Last Admin: 06/04/18 23:11 Dose: 1 cap Furosemide (Lasix) 40 mg PO DAILY [facility] Last Admin: 06/05/18 09:28 Dose: 40 mg Glipizide (Glucotrol) 5 mg PO BID [facility] Last Admin: 06/05/18 09:22 Dose: 5 mg Hydromorphone HCl (Dilaudid) 0.5 mg IVP Q6H PRN PRN Reason: Pain, severe (8-10) Vancomycin HCl 1 gm/ Sodium (Chloride) 250 mls @ 166.7 mls/hr IVPB Q24H [facility]; Protocol Last Admin: 06/05/18 14:42 Dose: 166.7 mls/hr Piperacillin Sod/Tazobactam Sod (Zosyn 3.375 Gm Iv Premix) 3.375 gm in 50 mls @ 100 mls/hr IVPB Q8H [facility]; Protocol Last Admin: 06/05/18 10:00 Dose: 100 mls/hr Insulin Human Regular (Novolin R) 0 unit SC ACHS [facility]; Protocol Last Admin: 06/05/18 12:27 Dose: 3 unit Lactulose (Enulose) 20 gm PO DAILY PRN PRN Reason: Constipation Losartan Potassium (Cozaar) 100 mg PO DAILY [facility] Last Admin: 06/05/18 09:22 Dose: 100 mg Pregabalin (Lyrica) 50 mg PO DAILY [facility] Last Admin: 06/05/18 09:22 Dose: 50 mg Rosuvastatin Calcium (Crestor) 5 mg PO HS [facility] Last Admin: 06/04/18 23:11 Dose: 5 mg Vitamin B Complex/Vit C/Folic Acid (Nephro-Ale) 1 tab PO 0800 [facility] Last Admin: 06/05/18 08:24 Dose: 1 tab - Labs Labs: 06/05/18 07:13 06/05/18 07:13 - Constitutional Appears: Well, Non-toxic, No Acute Distress - Extremities Exam Additional comments: LE focused exam: Vasc: DP/PT pulses fully palpable 2/4 b/l. Skin temperature warm to warm from proximal to distal. CFT < 3 seconds to all digits. Minimal edema noted around ulceration site Neuro: Epicritic and protective sensation grossly diminished b/l Derm: Ulceration site noted to plantar heel measuring roughly 3 cm x 2 cm x 0.4 cm with minimal amounts of serous drainage appreciated. Wound base is fibrogranular in nature. No tracking, tunneling or undermining appreciated. No other clinical signs of infection noted MSK: Pain with palpation to ulceration site. 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 Tariq WBC 12.1, afebrile Dr. Denbleyker would like PICC line placed for terminal supervisor IV abx per ID r ecommendations Follow up ESR F/u wound culture left foot - prelim: GPC Left foot xray: No evidence of acute OM Wound dressed with hydrogen peroxide wet to dry dressing No plan for surgical intervention at this time Podiatry will continue to follow while patient in house
[2018-06-06] MEDS: Piperacill/Tazo 3.375gm in Dex 3.375 GM/50 ML BAG IVPB SCH ×3 (01:15→17:40)
--- NOTE | 2018-06-06 06:44 | PN ---
DATE: 06/05/2018 SUBJECTIVE: The patient is a 73-year-old male. The patient was seen and examined at the bedside on 06/05/2018. Looking comfortable. No fever. No chills. No hematuria or hematochezia. No swelling of the legs. No chest pain. No palpitation. No headache or dizziness. Still having pain in the foot. PHYSICAL EXAMINATION: VITAL SIGNS: Temperature 98.1, pulse 80, respiratory rate 20, blood pressure 148/86, pulse oximetry 96. HEENT: Head: Normocephalic and atraumatic. Eyes: PERRLA. Extraocular muscles intact. Conjunctivae clear. Nose patent. Mucous membranes are moist. NECK: Supple. No carotid bruits. No JVD or thyromegaly. CHEST: Bilaterally symmetrical. HEART: S1 and S2 positive. LUNGS: Clear to auscultation. ABDOMEN: Soft. Bowel sounds present. No organomegaly. EXTREMITIES: Upper extremities, no edema, no cyanosis. Lower extremity foot is with dressing. MEDICATIONS: Eliquis, Ecotrin, Dulcolax, Coreg, Colace, vitamin D, Lasix, Glucotrol, vancomycin, Zosyn, insulin, lactulose, Losartan, morphine, Lyrica, Crestor. LABORATORY DATA: White blood cell 12.1, hemoglobin 10.6, hematocrit 31.8, platelets 268. Sodium 139, potassium 5, BUN 36, creatinine 1.5, glucose 178. ASSESSMENT AND PLAN: Mr. Campo is a 73-year-old male with leukocytosis, anemia, increased BUN, hyperglycemia, diabetic foot ulcer, diabetic neuropathy, renal insufficiency, diabetes mellitus uncontrolled insulin-requiring type 2, history of cerebrovascular accident, obesity. Infectious Disease, Dr. [place] Guerrero is on the case, getting intravenous antibiotics, getting pain management. The patient has left foot heel ulceration, peripherally inserted central catheter line requested for intravenous antibiotics. We will follow wound culture. Left foot x-ray shows no evidence of acute osteomyelitis or wound, dressed with hydrogen peroxide, wet-to-dry dressing as per Podiatry, no plan for surgical intervention at this time. Podiatry will continue to follow up while the patient is in the home. Gastrointestinal and deep venous thrombosis prophylaxis. Repeat labs. We will follow up. Zuleima Jcakson MD
[2018-06-06] MEDS: (Novolin R) Insulin Human Regular 100 units/ml vial SC SCH ×4 (08:20→21:29)
[2018-06-06] MEDS: Multivitamin Vitamin B Complex (Nephro-Vite) Tab PO SCH (08:20)
[2018-06-06] MEDS: HYDROmorphone 0.5 mg/0.5 ml ISec IVP PRN ×2 (10:02→17:52)
[2018-06-06] MEDS ORDERED: Gadodiamide 287 mg/ml 20 ml IV ONE (12:55)
--- NOTE | 2018-06-06 13:45 | CP.PCM.PN ---
Subjective - Date & Time of Evaluation Date of Evaluation: 06/06/18 Time of Evaluation: 13:38 - Subjective Subjective: Podiatry Progress Note for Dr. Tariq 73M seen and evaluated at bedside for left foot heel ulceration accompanied by his . Patient is AAO x 3 and NAD, resting comfortably in bed. Denies any acute overnight events or new pedal complaints. Denies any pain at this time. Denies any recent N/V/F/C/CP/SOB/D Objective - Vital Signs/Intake and Output Vital Signs (last 24 hours): Temp Pulse Resp BP Pulse Ox 97.9 F 76 20 161/89 H 95 06/06/18 07:00 06/06/18 07:00 06/06/18 07:00 06/06/18 09:54 06/06/18 07:00 Intake and Output: 06/06/18 06/06/18 06:59 18:59 Intake Total 800 Output Total 1501 Balance -701 - Medications Medications: Current Medications Apixaban (Eliquis) 2.5 mg PO BID [facility] Last Admin: 06/06/18 09:53 Dose: 2.5 mg Aspirin (Ecotrin) 81 mg PO DAILY [facility] Last Admin: 06/06/18 09:54 Dose: 81 mg Bisacodyl (Dulcolax) 10 mg [place] DAILY PRN PRN Reason: Constipation Carvedilol (Coreg) 3.125 mg PO BID [facility] Last Admin: 06/06/18 10:02 Dose: 3.125 mg Docusate Sodium (Colace) 100 mg PO TID [facility] Last Admin: 06/06/18 09:53 Dose: 100 mg Ergocalciferol (Drisdol 50,000 Intl Units Cap) 1 cap PO Q7D [facility] Last Admin: 06/04/18 23:11 Dose: 1 cap Furosemide (Lasix) 40 mg PO DAILY [facility] Last Admin: 06/06/18 09:54 Dose: 40 mg Glipizide (Glucotrol) 5 mg PO BID [facility] Last Admin: 06/06/18 09:54 Dose: 5 mg Hydromorphone HCl (Dilaudid) 0.5 mg IVP Q6H PRN PRN Reason: Pain, severe (8-10) Last Admin: 06/06/18 10:02 Dose: 0.5 mg Vancomycin HCl 1 gm/ Sodium (Chloride) 250 mls @ 166.7 mls/hr IVPB Q24H [facility]; Protocol Last Admin: 06/05/18 14:42 Dose: 166.7 mls/hr Piperacillin Sod/Tazobactam Sod (Zosyn 3.375 Gm Iv Premix) 3.375 gm in 50 mls @ 100 mls/hr IVPB Q8H [facility]; Protocol Last Admin: 06/06/18 09:55 Dose: 100 mls/hr Insulin Human Regular (Novolin R) 0 unit SC ACHS [facility]; Protocol Last Admin: 06/06/18 13:22 Dose: 4 unit Lactulose (Enulose) 20 gm PO DAILY PRN PRN Reason: Constipation Losartan Potassium (Cozaar) 100 mg PO DAILY [facility] Last Admin: 06/06/18 09:54 Dose: 100 mg Pregabalin (Lyrica) 50 mg PO DAILY [facility] Last Admin: 06/06/18 09:54 Dose: 50 mg Rosuvastatin Calcium (Crestor) 5 mg PO HS [facility] Last Admin: 06/05/18 21:51 Dose: 5 mg Vitamin B Complex/Vit C/Folic Acid (Nephro-Ale) 1 tab PO 0800 [facility] Last Admin: 06/06/18 08:20 Dose: 1 tab - Labs Labs: 06/05/18 07:13 06/05/18 07:13 - Constitutional Appears: Well, Non-toxic, No Acute Distress - Extremities Exam Additional comments: LE focused exam: Vasc: DP/PT pulses fully palpable 2/4 b/l. Skin temperature warm to warm from proximal to distal. CFT < 3 seconds to all digits. Minimal edema noted around ulceration site Neuro: Epicritic and protective sensation grossly diminished b/l Derm: Ulceration site noted to plantar heel measuring roughly 3 cm x 2 cm x 0.4 cm with serous drainage appreciated, increased from yesterday. Wound base is fibrogranular in nature. No tracking, tunneling or undermining appreciated. No other clinical signs of infection noted MSK: Pain with palpation to ulceration site. 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 Plan: Patient seen and evaluated Plan discussed with Dr. Tariq Afebrile Continue IV abx per ID ESR 115 Wound cx left foot heel wound: MRSA Left foot MRI: read pending Continue PT Wound dressed with hydrogen peroxide, DSD No plan for surgical intervention at this time; may change pending MRI results Podiatry will continue to follow while patient in house
--- NOTE | 2018-06-06 14:55 | MRI ---
Date of service: 06/06/2018 PROCEDURE: HISTORY: left heel diabetic ulcer / r/o OM COMPARISON: TECHNIQUE: FINDINGS: Mild circumferential soft tissue swelling with a shallow lateral heel ulcer measuring roughly 17 millimeters in length with associated increased hyperintense signal deep to the ulcer compatible with infectious cellulitis. No proximal marrow signal abnormality to suggest osteomyelitis. Mild marrow reactive changes noted more anteriorly and laterally in the calcaneus felt to be stress related and unrelated to the heel ulcer. No evidence of tendinopathy or ligament disruption. No suspicious enhancement. IMPRESSION: Findings compatible with a shallow posterior lateral heel ulcer with localized cellulitis. No definite evidence of localized osteomyelitis. Marrow reactive changes more anteriorly in the lateral heel felt to be stress related rather than osteomyelitis.
--- NOTE | 2018-06-06 20:08 | CP.PCM.PN ---
Subjective - Date & Time of Evaluation Date of Evaluation: 06/06/18 Time of Evaluation: 20:08 - Subjective Subjective: AFEBRILE, NO ACUTE EVENTS OVERNIGHT. LT FOOT /HEEL IN DRESSING RESTING COMFORTABLE. LABS ; NOTED ESR 115. WOUND CULTURE + MRSA BLOOD CULTURES -VE X TO DATE PT ON IV ZOSYN IV VANCOMYCIN. PT WENT FOR MRI LT FOOT R/O OSTEOMYELITIS. Objective - Vital Signs/Intake and Output Vital Signs (last 24 hours): Temp Pulse Resp BP Pulse Ox 97.8 F 79 20 169/79 H 95 06/06/18 16:15 06/06/18 16:15 06/06/18 16:15 06/06/18 16:15 06/06/18 16:15 Intake and Output: 06/06/18 06/07/18 18:59 06:59 Intake Total 780 Balance 780 - Medications Medications: Current Medications Apixaban (Eliquis) 2.5 mg PO BID [facility] Last Admin: 06/06/18 17:41 Dose: 2.5 mg Aspirin (Ecotrin) 81 mg PO DAILY [facility] Last Admin: 06/06/18 09:54 Dose: 81 mg Bisacodyl (Dulcolax) 10 mg [place] DAILY PRN PRN Reason: Constipation Carvedilol (Coreg) 3.125 mg PO BID [facility] Last Admin: 06/06/18 17:41 Dose: 3.125 mg Docusate Sodium (Colace) 100 mg PO TID [facility] Last Admin: 06/06/18 17:41 Dose: 100 mg Ergocalciferol (Drisdol 50,000 Intl Units Cap) 1 cap PO Q7D [facility] Last Admin: 06/04/18 23:11 Dose: 1 cap Furosemide (Lasix) 40 mg PO DAILY [facility] Last Admin: 06/06/18 09:54 Dose: 40 mg Glipizide (Glucotrol) 5 mg PO BID [facility] Last Admin: 06/06/18 17:41 Dose: 5 mg Hydromorphone HCl (Dilaudid) 0.5 mg IVP Q6H PRN PRN Reason: Pain, severe (8-10) Last Admin: 06/06/18 17:52 Dose: 0.5 mg Vancomycin HCl 1 gm/ Sodium (Chloride) 250 mls @ 166.7 mls/hr IVPB Q24H [facility]; Protocol Last Admin: 06/06/18 14:14 Dose: 166.7 mls/hr Piperacillin Sod/Tazobactam Sod (Zosyn 3.375 Gm Iv Premix) 3.375 gm in 50 mls @ 100 mls/hr IVPB Q8H [facility]; Protocol Last Admin: 06/06/18 17:40 Dose: 100 mls/hr Insulin Human Regular (Novolin R) 0 unit SC ACHS [facility]; Protocol Last Admin: 06/06/18 17:48 Dose: 4 unit Lactulose (Enulose) 20 gm PO DAILY PRN PRN Reason: Constipation Losartan Potassium (Cozaar) 100 mg PO DAILY [facility] Last Admin: 06/06/18 09:54 Dose: 100 mg Pregabalin (Lyrica) 50 mg PO DAILY [facility] Last Admin: 06/06/18 09:54 Dose: 50 mg Rosuvastatin Calcium (Crestor) 5 mg PO HS [facility] Last Admin: 06/05/18 21:51 Dose: 5 mg Vitamin B Complex/Vit C/Folic Acid (Nephro-Ale) 1 tab PO 0800 [facility] Last Admin: 06/06/18 08:20 Dose: 1 tab - Labs Labs: 06/05/18 07:13 06/05/18 07:13 - Constitutional Appears: No Acute Distress - Head Exam Head Exam: NORMAL INSPECTION - Eye Exam Eye Exam: EOMI, PERRL - ENT Exam ENT Exam: Normal Oropharynx - Neck Exam Neck Exam: Normal Inspection - Respiratory Exam Respiratory Exam: Clear to Ausculation Bilateral - Cardiovascular Exam Cardiovascular Exam: REGULAR RHYTHM, +S1, +S2 - GI/Abdominal Exam GI & Abdominal Exam: Soft, Normal Bowel Sounds (OBESE) - Extremities Exam Extremities Exam: Normal Capillary Refill, Pedal Edema (LEFT HEEL AND FOOT. lEFT LATERAL HEEL ULCER, UNCHANGED.). absent: Calf Tenderness - Neurological Exam Neurological Exam: Abnormal Gait (LEFT-SIDED WEAKNESS . lOWER EXTREMITY MORE THAN THE UPPER.), Alert, Awake, CN II-XII Intact, Oriented x3 - Psychiatric Exam Psychiatric exam: Normal Mood - Skin Skin Exam: Normal Color, Warm Assessment and Plan (1) Diabetic foot ulcer Status: Acute (2) Diabetic neuropathy Status: Acute (3) Renal insufficiency Status: Acute (4) Diabetes mellitus Status: Chronic (5) CVA (cerebrovascular accident) Status: Acute - Assessment and Plan (Free Text) Plan: CONTINUE IV ZOSYN 3.375 EVERY 8 HOURLY.06/04/18 cONTINUE iv VANCOMYCIN 1 G EVERY 24 HOURLY.06/04/18 F/U VANCO -TROUGH PRIOR TO THE THIRD DOSE AND KEEP BETWEEN 10 AND 20MG/ML mONITOR RENAL FUNCTIONS CLOSELY. LOCAL WOUND CARE as per PODIATRY. F/U MRI LEFT FOOT.
[2018-06-07] MEDS: Piperacill/Tazo 3.375gm in Dex 3.375 GM/50 ML BAG IVPB SCH ×3 (00:10→17:33)
--- NOTE | 2018-06-07 06:29 | PN ---
DATE: 06/06/2018 SUBJECTIVE: The patient is a 73-year-old male. The patient was seen and examined at the bedside on 06/06/2018. Looking comfortable. No fever. No chills. No acute event happened overnight. Still having pain in the left foot, getting Dilaudid for that. Heel has dressing. No hematuria. No hematochezia. No headache or dizziness. PHYSICAL EXAMINATION: VITAL SIGNS: Temperature 97.8, pulse 79, respiratory rate 20, blood pressure 160/80, pulse oximetry 95. HEENT: Head: Normocephalic, atraumatic. Eyes: PERRLA. Extraocular muscles intact. Conjunctivae clear. Nose patent. NECK: Supple. No carotid bruit, JVD, or thyromegaly. CHEST: Bilaterally symmetrical. HEART: S1, S2 positive. LUNGS: Clear to auscultation. ABDOMEN: Soft. Bowel sounds present. No organomegaly. EXTREMITIES: No edema. No cyanosis. Her left foot heel has dressing. MEDICATIONS: Eliquis, Ecotrin, Dulcolax, Coreg, Colace, vitamin D, Lasix, glipizide, hydromorphone, vancomycin, Zosyn, insulin, lactulose, Lyrica, Crestor, vitamin C. LABORATORY DATA: White blood cell 12.1, hemoglobin 10.6, hematocrit 31.8, platelets 268. Sodium 139, potassium 5, BUN 33, creatinine 1.5, glucose 178. ASSESSMENT: a 73-year-old male with leukocytosis, anemia, hyperglycemia, came with a diabetic foot ulcer, diabetic neuropathy, renal insufficiency, diabetes mellitus, cerebrovascular accident. PLAN: Continue Zosyn, continue vancomycin. Followup vancomycin trough prior to the third dose and keep between [address] Guerrero. Monitor his renal function closely. As per Podiatry, the patient needs debridement and local wound care. MRI of the foot was done, reviewed by me. See him by residential instructor and Infectious Disease, appreciate that they have input. Findings are compatible with shallow posterolateral heel ulcer with localized cellulitis. No definite evidence of a localized osteomyelitis, marrow reactive changes more anteriorly in the lateral heel felt to be stress related rather than osteomyelitis. So, plan is to continue antibiotics. Repeat labs. We will follow up. Zuleima Jackson MD [facility]
[2018-06-07 07:05] LABS: ALBUMIN 3.9 g/dL (3.5-5.0); ALT/SGPT < 6 U/L (21-72); AST/SGOT 21 U/L (17-59); BLOOD UREA NITROGEN 34 mg/dL (9-20); CALCIUM 9.2 mg/dl (8.6-10.4); GFR NON-AFRICAN AMERICAN 40
[2018-06-07 07:12] LABS: HEMOGLOBIN 11.4 g/dL (12.0-18.0); MEAN CELL VOLUME 90.7 fL (80.0-94.0); MEAN CORPUSCULAR HEMOGLOBIN 30.2 pg (27.0-31.0); MEAN CORPUSCULAR HGB CONC 33.3 g/dL (33.0-37.0); RBC 3.77 Mil/uL (4.40-5.90); RED CELL DISTRIBUTION WIDTH 13.9 % (11.5-14.5); WHITE BLOOD COUNT 9.6 K/uL (4.8-10.8)
[2018-06-07] MEDS: (Novolin R) Insulin Human Regular 100 units/ml vial SC SCH ×4 (07:37→21:12)
[2018-06-07] MEDS: Multivitamin Vitamin B Complex (Nephro-Vite) Tab PO SCH (07:37)
[2018-06-07] MEDS: HYDROmorphone 0.5 mg/0.5 ml ISec IVP PRN ×3 (07:38→21:26)
--- NOTE | 2018-06-07 10:58 | CP.PCM.PN ---
Subjective - Date & Time of Evaluation Date of Evaluation: 06/07/18 Time of Evaluation: 10:50 - Subjective Subjective: Podiatry Progress Note for Dr. Tariq 73M seen at bedside for left heel ulceration. Patient is AAO x 3 and NAD, resting comfortably in bed. Denies any acute overnight events or new pedal complaints. States that pain to his heel is well controlled at this time. Denies any recent N/V/F/C/CP/SOB/D Objective - Vital Signs/Intake and Output Vital Signs (last 24 hours): Temp Pulse Resp BP Pulse Ox 98.3 F 94 H 20 161/81 H 96 06/07/18 08:49 06/07/18 08:49 06/07/18 08:49 06/07/18 10:28 06/07/18 08:49 Intake and Output: 06/07/18 06/07/18 06:59 18:59 Intake Total 300 180 Output Total 400 Balance -100 180 - Medications Medications: Current Medications Apixaban (Eliquis) 2.5 mg PO BID [facility] Last Admin: 06/07/18 10:28 Dose: 2.5 mg Aspirin (Ecotrin) 81 mg PO DAILY [facility] Last Admin: 06/07/18 10:28 Dose: 81 mg Bisacodyl (Dulcolax) 10 mg [place] DAILY PRN PRN Reason: Constipation Carvedilol (Coreg) 3.125 mg PO BID [facility] Last Admin: 06/07/18 10:33 Dose: 3.125 mg Docusate Sodium (Colace) 100 mg PO TID [facility] Last Admin: 06/07/18 10:28 Dose: 100 mg Ergocalciferol (Drisdol 50,000 Intl Units Cap) 1 cap PO Q7D [facility] Last Admin: 06/04/18 23:11 Dose: 1 cap Furosemide (Lasix) 40 mg PO DAILY [facility] Last Admin: 06/07/18 10:28 Dose: 40 mg Glipizide (Glucotrol) 5 mg PO BID [facility] Last Admin: 06/07/18 10:28 Dose: 5 mg Hydromorphone HCl (Dilaudid) 0.5 mg IVP Q6H PRN PRN Reason: Pain, severe (8-10) Last Admin: 06/07/18 07:38 Dose: 0.5 mg Vancomycin HCl 1 gm/ Sodium (Chloride) 250 mls @ 166.7 mls/hr IVPB Q24H [facility]; Protocol Last Admin: 06/06/18 14:14 Dose: 166.7 mls/hr Piperacillin Sod/Tazobactam Sod (Zosyn 3.375 Gm Iv Premix) 3.375 gm in 50 mls @ 100 mls/hr IVPB Q8H [facility]; Protocol Last Admin: 06/07/18 10:00 Dose: 100 mls/hr Insulin Human Regular (Novolin R) 0 unit SC ACHS [facility]; Protocol Last Admin: 06/07/18 07:37 Dose: 3 unit Lactulose (Enulose) 20 gm PO DAILY PRN PRN Reason: Constipation Last Admin: 06/07/18 10:33 Dose: 20 gm Losartan Potassium (Cozaar) 100 mg PO DAILY [facility] Last Admin: 06/07/18 10:28 Dose: 100 mg Pregabalin (Lyrica) 50 mg PO DAILY [facility] Last Admin: 06/07/18 10:28 Dose: 50 mg Rosuvastatin Calcium (Crestor) 5 mg PO HS [facility] Last Admin: 06/06/18 21:55 Dose: 5 mg Vitamin B Complex/Vit C/Folic Acid (Nephro-Ale) 1 tab PO 0800 [facility] Last Admin: 06/07/18 07:37 Dose: 1 tab - Labs Labs: 06/07/18 06:33 06/07/18 06:33 - Constitutional Appears: Well, Non-toxic, No Acute Distress - Extremities Exam Additional comments: LE focused exam: Vasc: DP/PT pulses fully palpable 2/4 b/l. Skin temperature warm to warm from proximal to distal. CFT < 3 seconds to all digits. Minimal edema noted around ulceration site Neuro: Epicritic and protective sensation grossly diminished b/l Derm: Ulceration site noted to plantar heel measuring roughly 3 cm x 2 cm x 0.4 cm with serosanguinous drainage appreciated, increased from yesterday. Wound base is fibrogranular in nature. No tracking, tunneling or undermining appreciated. No other clinical signs of infection noted MSK: Pain with palpation to ulceration site. Previous hallux amputation a ppreciated at right foot, fully healed - Neurological Exam Neurological Exam: Alert, Awake, Oriented x3 - Psychiatric Exam Psychiatric exam: Normal Affect, Normal Mood Assessment and Plan - Assessment and Plan (Free Text) Assessment: 73M seen at bedside for left heel ulceration Plan: Patient seen and evaluated Plan discussed with Dr. Tariq Afebrile, absent leukocytosis MRI: No evidence of osteomyelitis Wound cx from heel (+) for MRSA Continue IV abx per ID Per Dr. Tariq, no plans for surgical intervention at this time. 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 Tariq recommends PICC line Dressing changed with hydrogen peroxide, ABD, DSD Podiatry will continue to follow while patient in house
--- NOTE | 2018-06-07 18:55 | CP.PCM.PN ---
Subjective - Date & Time of Evaluation Date of Evaluation: 06/07/18 Time of Evaluation: 18:55 - Subjective Subjective: AFEBRILE, NO ACUTE EVENTS OVERNIGHT. C/O CONSTPATION LT FOOT /HEEL EXAMINED- ULCE 2.3 X 2.1 CM x 17mm BASE CLEAN AND PINK. MARGINS GRANULATIN RESTING COMFORTABLE. LABS ; NOTED WOUND CULTURE + MRSA BLOOD CULTURES -VE X TO DATE PT ON IV ZOSYN IV VANCOMYCIN. 06/06/18 MRI LT FOOT REVIEWED-infectious cellulitis with shallow posterolateral heel ULCER with 17 mm deep With localized cellulitis. No osteomyelitis. ( see full report ) Objective - Vital Signs/Intake and Output Vital Signs (last 24 hours): Temp Pulse Resp BP Pulse Ox 97.8 F 85 20 161/93 H 98 06/07/18 16:00 06/07/18 16:00 06/07/18 16:00 06/07/18 16:00 06/07/18 16:00 Intake and Output: 06/07/18 06/07/18 06:59 18:59 Intake Total 300 960 Output Total 400 Balance -100 960 - Medications Medications: Current Medications Apixaban (Eliquis) 2.5 mg PO BID [facility] Last Admin: 06/07/18 17:31 Dose: 2.5 mg Aspirin (Ecotrin) 81 mg PO DAILY [facility] Last Admin: 06/07/18 10:28 Dose: 81 mg Bisacodyl (Dulcolax) 10 mg [place] DAILY PRN PRN Reason: Constipation Carvedilol (Coreg) 3.125 mg PO BID [facility] Last Admin: 06/07/18 17:31 Dose: 3.125 mg Docusate Sodium (Colace) 100 mg PO TID [facility] Last Admin: 06/07/18 17:31 Dose: 100 mg Ergocalciferol (Drisdol 50,000 Intl Units Cap) 1 cap PO Q7D [facility] Last Admin: 06/04/18 23:11 Dose: 1 cap Furosemide (Lasix) 40 mg PO DAILY [facility] Last Admin: 06/07/18 10:28 Dose: 40 mg Glipizide (Glucotrol) 5 mg PO BID [facility] Last Admin: 06/07/18 17:31 Dose: 5 mg Hydromorphone HCl (Dilaudid) 0.5 mg IVP Q6H PRN PRN Reason: Pain, severe (8-10) Last Admin: 06/07/18 13:47 Dose: 0.5 mg Vancomycin HCl 1 gm/ Sodium (Chloride) 250 mls @ 166.7 mls/hr IVPB Q24H [facility]; Protocol Last Admin: 06/07/18 14:54 Dose: 166.7 mls/hr Piperacillin Sod/Tazobactam Sod (Zosyn 3.375 Gm Iv Premix) 3.375 gm in 50 mls @ 100 mls/hr IVPB Q8H [facility]; Protocol Last Admin: 06/07/18 17:33 Dose: 100 mls/hr Insulin Human Regular (Novolin R) 0 unit SC ACHS [facility]; Protocol Last Admin: 06/07/18 17:31 Dose: 6 u Lactulose (Enulose) 20 gm PO DAILY PRN PRN Reason: Constipation Last Admin: 06/07/18 10:33 Dose: 20 gm Losartan Potassium (Cozaar) 100 mg PO DAILY [facility] Last Admin: 06/07/18 10:28 Dose: 100 mg Pregabalin (Lyrica) 50 mg PO DAILY [facility] Last Admin: 06/07/18 10:28 Dose: 50 mg Rosuvastatin Calcium (Crestor) 5 mg PO HS [facility] Last Admin: 06/06/18 21:55 Dose: 5 mg Vitamin B Complex/Vit C/Folic Acid (Nephro-Ale) 1 tab PO 0800 [facility] Last Admin: 06/07/18 07:37 Dose: 1 tab - Labs Labs: 06/07/18 06:33 06/07/18 06:33 - Constitutional Appears: No Acute Distress - Head Exam Head Exam: NORMAL INSPECTION - Eye Exam Eye Exam: EOMI, PERRL - ENT Exam ENT Exam: Mucous Membranes Moist, Normal Oropharynx - Neck Exam Neck Exam: Normal Inspection - Respiratory Exam Respiratory Exam: Clear to Ausculation Bilateral, NORMAL BREATHING PATTERN - Cardiovascular Exam Cardiovascular Exam: REGULAR RHYTHM, +S1, +S2 - GI/Abdominal Exam GI & Abdominal Exam: Soft, Normal Bowel Sounds. absent: Tenderness (obese.) - Extremities Exam Extremities Exam: Pedal Edema. absent: Calf Tenderness, Tenderness (plantar heel measuring roughly 2.5cm x 2.1 cm x 17mm,with a clean, pink base and granulating margins.) - Neurological Exam Neurological Exam: Abnormal Gait (left-sided weakness, left lower extremity more than left upper extremity.), Alert, Awake, Oriented x3 - Psychiatric Exam Psychiatric exam: Normal Mood - Skin Skin Exam: Normal Color, Warm Assessment and Plan (1) Diabetic foot ulcer Status: Acute (2) Diabetic neuropathy Status: Acute (3) Renal insufficiency Status: Acute (4) Diabetes mellitus Status: Chronic (5) CVA (cerebrovascular accident) Status: Acute - Assessment and Plan (Free Text) Plan: CONTINUE IV ZOSYN 3.375 EVERY 8 HOURLY.06/04/18 cONTINUE iv VANCOMYCIN 1 G EVERY 24 HOURLY.06/04/18 F/U VANCO -TROUGH PRIOR TO THE THIRD DOSE AND KEEP BETWEEN 10 AND 20MG/ML mONITOR RENAL FUNCTIONS CLOSELY. LOCAL WOUND CARE as per PODIATRY CASE DISCUSSED WITH ASSESSMENT COUNSELOR.MR MONTES/ AND STAFF. PATIENT WILL NEED TO CONTINUE IV ANTIBIOTICS FOLLOWS- IV VANCOMYCIN 1 G EVERY 24 HOURLY FOR TOTAL OF 3 WEEKS FOR MRSA INFECTION IN THE LEFT HEEL CAN CHANGE iv ZOSYN TO PO AUGMENTIN 875 TWICE A DAY X 2WEEKS ON DISCHARGE. CONSIDER CATHY PATIENT WILL NEED DRESSING CHANGES AND LOCAL WOUND CARE. ADDENDUM: VANCO TROUGH IN AM 06/08/18 AT 2.00PM AND NOTIFY ME TO ADJUST DOSE OF VANCOMYCIN BEFORE D/C
[2018-06-08] MEDS: Piperacill/Tazo 3.375gm in Dex 3.375 GM/50 ML BAG IVPB SCH ×3 (01:00→18:00)
--- NOTE | 2018-06-08 01:28 | PN ---
DATE: 06/07/2018 SUBJECTIVE: The patient is a 73-year-old male. The patient was seen and examined on the bedside 06/07/2018. Looking comfortable. Oriented x3. Moving all four extremities. No fever. No chills. No hematuria or hematochezia. No headache or dizziness. No chest pain. No palpitation. PHYSICAL EXAMINATION: VITAL SIGNS: Temperature 98.3, pulse 94, respirations 20, blood pressure 160/80, pulse oximetry 96%. HEENT: Head: Normocephalic, atraumatic. Eyes: PERRLA. Extraocular muscles intact. Conjunctivae clear. Nose patent. Mucous membranes are moist. NECK: Supple. No carotid bruit. No JVD or thyromegaly. CHEST: Bilaterally symmetrical. HEART: S1, S2 positive. LUNGS: Clear to auscultation. ABDOMEN: Soft. Bowel sounds present. No organomegaly. EXTREMITIES: No edema. No cyanosis. NEUROLOGIC: The patient awake, alert. Moving all four extremities. No focal deficits. MEDICATIONS: Eliquis, Ecotrin, Dulcolax, Coreg, Lasix, glipizide, vancomycin. LABORATORY DATA: White blood cell 9.6, hemoglobin 11.4, hematocrit 34.2, platelets 288. Sodium 135, potassium 4.4, BUN 34, creatinine 1.7, and glucose 277. ASSESSMENT AND PLAN: Mr. Alber Vicente is a 73-year-old male with anemia, renal insufficiency, hyperglycemia, obesity, has left heel ulceration, getting the IV antibiotics as per Infectious Disease. MRI showed no evidence of osteomyelitis. Wound cultures from heel shows positive Methicillin-resistant Staphylococcus aureus. Continue antibiotics. As per Podiatry, no plans of surgical intervention at this time. Ulceration to be treated with long-term intravenous antibiotics and local wound care. Peripherally inserted central catheter line was recommended. Seen by Dr. Berlin Guerrero, Infectious Disease. Blood cultures are negative. The patient is on Zosyn and vancomycin. According to Infectious Disease, change Zosyn to p.o. Augmentin twice a day for 2 weeks on discharge. Infectious Disease is recommending subacute rehabilitation because the patient needs dressing change and local wound care. Repeat labs. We will follow up. Zuleima Jackson MD [facility] # [id number]
[2018-06-08] MEDS: Multivitamin Vitamin B Complex (Nephro-Vite) Tab PO SCH (08:01)
[2018-06-08] MEDS: (Novolin R) Insulin Human Regular 100 units/ml vial SC SCH ×4 (08:01→21:27)
[2018-06-08] MEDS: HYDROmorphone 0.5 mg/0.5 ml ISec IVP PRN ×3 (08:05→20:14)
--- NOTE | 2018-06-08 11:59 | CP.PCM.PN ---
Subjective - Date & Time of Evaluation Date of Evaluation: 06/08/18 Time of Evaluation: 11:59 - Subjective Subjective: Podiatry Progress Note for Dr. Tariq 73M seen at bedside this morning for left heel ulceration. Patient is AAO x 3 and NAD, resting comfortably in bed. Denies any acute overnight events or new pedal complaints. Says he is having a lot of pain to the left foot, scaling it as an 8 out of 10. States he is awaiting pain medicine from nursing which he admits has been helping control his pain. Denies any recent N/V/F/C/CP/SOB/D Objective - Vital Signs/Intake and Output Vital Signs (last 24 hours): Temp Pulse Resp BP Pulse Ox 98 F 81 20 174/82 H 95 06/08/18 07:50 06/08/18 07:50 06/08/18 07:50 06/08/18 09:47 06/08/18 07:50 Intake and Output: 06/08/18 06/08/18 06:59 18:59 Intake Total 350 Balance 350 - Medications Medications: Current Medications Apixaban (Eliquis) 2.5 mg PO BID [facility] Last Admin: 06/08/18 09:48 Dose: 2.5 mg Aspirin (Ecotrin) 81 mg PO DAILY [facility] Last Admin: 06/08/18 09:47 Dose: 81 mg Bisacodyl (Dulcolax) 10 mg [place] DAILY PRN PRN Reason: Constipation Carvedilol (Coreg) 3.125 mg PO BID [facility] Last Admin: 06/08/18 09:47 Dose: 3.125 mg Docusate Sodium (Colace) 100 mg PO TID [facility] Last Admin: 06/08/18 09:47 Dose: 100 mg Ergocalciferol (Drisdol 50,000 Intl Units Cap) 1 cap PO Q7D [facility] Last Admin: 06/04/18 23:11 Dose: 1 cap Furosemide (Lasix) 40 mg PO DAILY [facility] Last Admin: 06/08/18 09:47 Dose: 40 mg Glipizide (Glucotrol) 5 mg PO BID [facility] Last Admin: 06/08/18 09:47 Dose: 5 mg Hydromorphone HCl (Dilaudid) 0.5 mg IVP Q6H PRN PRN Reason: Pain, severe (8-10) Last Admin: 06/07/18 21:26 Dose: 0.5 mg Vancomycin HCl 1 gm/ Sodium (Chloride) 250 mls @ 166.7 mls/hr IVPB Q24H [facility]; Protocol Last Admin: 06/07/18 14:54 Dose: 166.7 mls/hr Piperacillin Sod/Tazobactam Sod (Zosyn 3.375 Gm Iv Premix) 3.375 gm in 50 mls @ 100 mls/hr IVPB Q8H [facility]; Protocol Last Admin: 06/08/18 08:10 Dose: 100 mls/hr Insulin Human Regular (Novolin R) 0 unit SC ACHS [facility]; Protocol Last Admin: 06/08/18 08:01 Dose: 2 u Lactulose (Enulose) 20 gm PO DAILY PRN PRN Reason: Constipation Last Admin: 06/08/18 08:02 Dose: 20 gm Losartan Potassium (Cozaar) 100 mg PO DAILY [facility] Last Admin: 06/08/18 09:47 Dose: 100 mg Pregabalin (Lyrica) 50 mg PO DAILY [facility] Last Admin: 06/08/18 09:47 Dose: 50 mg Rosuvastatin Calcium (Crestor) 5 mg PO HS [facility] Last Admin: 06/07/18 21:11 Dose: 5 mg Vitamin B Complex/Vit C/Folic Acid (Nephro-Ale) 1 tab PO 0800 [facility] Last Admin: 06/08/18 08:01 Dose: 1 tab - Labs Labs: 06/07/18 06:33 06/07/18 06:33 - Constitutional Appears: Well, Non-toxic, No Acute Distress - Extremities Exam Additional comments: Lower extremity focused exam: Vasc: DP/PT pulses fully palpable 2/4 b/l. Skin temperature warm to warm from proximal to distal. CFT < 3 seconds to all digits. Minimal edema noted around ulceration site Neuro: Epicritic and protective sensation grossly diminished b/l Derm: Ulceration site noted to plantar heel measuring roughly 3 cm x 2 cm x 0.4 cm with serosanguinous drainage appreciated, increased from yesterday. Wound base is fibrogranular in nature. No tracking, tunneling or undermining appreciated. No other clinical signs of infection noted MSK: Pain with palpation to ulceration site. 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 Tariq Afebrile, absent leukocytosis MRI: No evidence of osteomyelitis Wound cx from heel (+) for MRSA Continue IV abx per ID Per Dr. 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 Tariq recommends PICC line prior to D/C Dressing changed with hydrogen peroxide, ABD, DSD Podiatry will continue to follow while patient in house
--- NOTE | 2018-06-08 22:23 | CP.PCM.PN ---
Subjective - Date & Time of Evaluation Date of Evaluation: 06/08/18 Time of Evaluation: 22:22 - Subjective Subjective: afebrile RESTING COMFORTABLY, STATES HE WANTS TO GO HOME. ON IV ABX, LABS NOTED, VANCO TROUGH 12.3 OK Objective - Vital Signs/Intake and Output Vital Signs (last 24 hours): Temp Pulse Resp BP Pulse Ox 97.7 F 77 20 144/84 97 06/08/18 16:00 06/08/18 16:00 06/08/18 16:00 06/08/18 16:00 06/08/18 16:00 Intake and Output: 06/08/18 06/09/18 18:59 06:59 Intake Total 350 Balance 350 - Medications Medications: Current Medications Apixaban (Eliquis) 2.5 mg PO BID [facility] Last Admin: 06/08/18 17:23 Dose: 2.5 mg Aspirin (Ecotrin) 81 mg PO DAILY [facility] Last Admin: 06/08/18 09:47 Dose: 81 mg Bisacodyl (Dulcolax) 10 mg [place] DAILY PRN PRN Reason: Constipation Carvedilol (Coreg) 3.125 mg PO BID [facility] Last Admin: 06/08/18 17:22 Dose: 3.125 mg Docusate Sodium (Colace) 100 mg PO TID [facility] Last Admin: 06/08/18 17:22 Dose: 100 mg Ergocalciferol (Drisdol 50,000 Intl Units Cap) 1 cap PO Q7D [facility] Last Admin: 06/04/18 23:11 Dose: 1 cap Furosemide (Lasix) 40 mg PO DAILY [facility] Last Admin: 06/08/18 09:47 Dose: 40 mg Glipizide (Glucotrol) 5 mg PO BID [facility] Last Admin: 06/08/18 17:22 Dose: 5 mg Hydromorphone HCl (Dilaudid) 0.5 mg IVP Q6H PRN PRN Reason: Pain, severe (8-10) Last Admin: 06/08/18 20:14 Dose: 0.5 mg Vancomycin HCl 1 gm/ Sodium (Chloride) 250 mls @ 166.7 mls/hr IVPB Q24H [facility]; Protocol Last Admin: 06/08/18 16:12 Dose: 166.7 mls/hr Piperacillin Sod/Tazobactam Sod (Zosyn 3.375 Gm Iv Premix) 3.375 gm in 50 mls @ 100 mls/hr IVPB Q8H [facility]; Protocol Last Admin: 06/08/18 18:00 Dose: 100 mls/hr Insulin Human Regular (Novolin R) 0 unit SC ACHS [facility]; Protocol Last Admin: 06/08/18 21:27 Dose: Not Given Lactulose (Enulose) 20 gm PO DAILY PRN PRN Reason: Constipation Last Admin: 06/08/18 08:02 Dose: 20 gm Losartan Potassium (Cozaar) 100 mg PO DAILY [facility] Last Admin: 06/08/18 09:47 Dose: 100 mg Pregabalin (Lyrica) 50 mg PO DAILY [facility] Last Admin: 06/08/18 09:47 Dose: 50 mg Rosuvastatin Calcium (Crestor) 5 mg PO HS [facility] Last Admin: 06/08/18 21:27 Dose: 5 mg Vitamin B Complex/Vit C/Folic Acid (Nephro-Ale) 1 tab PO 0800 [facility] Last Admin: 06/08/18 08:01 Dose: 1 tab - Labs Labs: 06/07/18 06:33 06/07/18 06:33 - Constitutional Appears: No Acute Distress - Head Exam Head Exam: NORMAL INSPECTION - Eye Exam Eye Exam: EOMI - ENT Exam ENT Exam: Mucous Membranes Moist, Normal Oropharynx - Neck Exam Neck Exam: Normal Inspection - Respiratory Exam Respiratory Exam: Clear to Ausculation Bilateral - Cardiovascular Exam Cardiovascular Exam: REGULAR RHYTHM, +S1, +S2 - GI/Abdominal Exam GI & Abdominal Exam: Soft, Normal Bowel Sounds - Extremities Exam Extremities Exam: Pedal Edema (1+ LT FOOT AND HEEL. LT FOOT IN DRESSING C/D/I.). absent: Calf Tenderness - Neurological Exam Neurological Exam: Awake, Oriented x3. absent: Abnormal Gait (LT SIDED WEAKNESS FROM PREVIOUS CVAS) Assessment and Plan (1) Diabetic foot ulcer Status: Acute (2) Diabetic neuropathy Status: Acute (3) Renal insufficiency Status: Acute (4) Diabetes mellitus Status: Chronic (5) CVA (cerebrovascular accident) Status: Acute - Assessment and Plan (Free Text) Plan: PATIENT WILL NEED TO CONTINUE IV ANTIBIOTICS FOLLOWS- IV VANCOMYCIN 1 G EVERY 24 HOURLY FOR TOTAL OF 3 WEEKS FOR MRSA INFECTION IN THE LEFT HEEL CAN CHANGE iv ZOSYN TO PO AUGMENTIN 875 TWICE A DAY X 2WEEKS ON DISCHARGE. MONITOR RENAL FUNCTION CLOSELY. F/U CBC/DIFF. EVERY WEEK X 3 WKS BMP.EVERY WEEK X 3 WKS VANCO TROUGH WEEKLY X 3 WEEKS EVERY SUNDAY AND NOTIFY MD. WILL F/U PT WHILE IN HOSPITAL
[2018-06-09] MEDS: Piperacill/Tazo 3.375gm in Dex 3.375 GM/50 ML BAG IVPB SCH ×3 (00:06→16:19)
[2018-06-09] MEDS: HYDROmorphone 0.5 mg/0.5 ml ISec IVP PRN ×3 (04:40→21:44)
[2018-06-09] MEDS: (Novolin R) Insulin Human Regular 100 units/ml vial SC SCH ×4 (08:15→21:39)
[2018-06-09] MEDS: Multivitamin Vitamin B Complex (Nephro-Vite) Tab PO SCH (08:17)
--- NOTE | 2018-06-09 12:31 | CP.PCM.PN ---
Subjective - Date & Time of Evaluation Date of Evaluation: 06/09/18 Time of Evaluation: 12:31 - Subjective Subjective: afebrile RESTING COMFORTABLE ON IV ABX, NO NEW COMPLAINTS. Objective - Vital Signs/Intake and Output Vital Signs (last 24 hours): Temp Pulse Resp BP Pulse Ox 98.1 F 82 20 160/83 H 96 06/09/18 07:29 06/09/18 07:29 06/09/18 07:29 06/09/18 09:16 06/09/18 07:29 Intake and Output: 06/09/18 06/09/18 06:59 18:59 Intake Total 350 Output Total 400 Balance -50 - Medications Medications: Current Medications Apixaban (Eliquis) 2.5 mg PO BID [facility] Last Admin: 06/09/18 09:18 Dose: 2.5 mg Aspirin (Ecotrin) 81 mg PO DAILY [facility] Last Admin: 06/09/18 09:17 Dose: 81 mg Bisacodyl (Dulcolax) 10 mg [place] DAILY PRN PRN Reason: Constipation Carvedilol (Coreg) 3.125 mg PO BID [facility] Last Admin: 06/09/18 09:17 Dose: 3.125 mg Docusate Sodium (Colace) 100 mg PO TID [facility] Last Admin: 06/09/18 09:17 Dose: 100 mg Ergocalciferol (Drisdol 50,000 Intl Units Cap) 1 cap PO Q7D [facility] Last Admin: 06/04/18 23:11 Dose: 1 cap Furosemide (Lasix) 40 mg PO DAILY [facility] Last Admin: 06/09/18 09:16 Dose: 40 mg Glipizide (Glucotrol) 5 mg PO BID [facility] Last Admin: 06/09/18 09:17 Dose: 5 mg Hydromorphone HCl (Dilaudid) 0.5 mg IVP Q6H PRN PRN Reason: Pain, severe (8-10) Last Admin: 06/09/18 12:16 Dose: 0.5 mg Vancomycin HCl 1 gm/ Sodium (Chloride) 250 mls @ 166.7 mls/hr IVPB Q24H [facility]; Protocol Last Admin: 06/08/18 16:12 Dose: 166.7 mls/hr Piperacillin Sod/Tazobactam Sod (Zosyn 3.375 Gm Iv Premix) 3.375 gm in 50 mls @ 100 mls/hr IVPB Q8H [facility]; Protocol Last Admin: 06/09/18 09:16 Dose: 100 mls/hr Insulin Human Regular (Novolin R) 0 unit SC ACHS [facility]; Protocol Last Admin: 06/09/18 12:16 Dose: 6 u Lactulose (Enulose) 20 gm PO DAILY PRN PRN Reason: Constipation Last Admin: 06/08/18 08:02 Dose: 20 gm Losartan Potassium (Cozaar) 100 mg PO DAILY [facility] Last Admin: 06/09/18 09:16 Dose: 100 mg Pregabalin (Lyrica) 50 mg PO DAILY [facility] Last Admin: 06/09/18 09:17 Dose: 50 mg Rosuvastatin Calcium (Crestor) 5 mg PO HS [facility] Last Admin: 06/08/18 21:27 Dose: 5 mg Vitamin B Complex/Vit C/Folic Acid (Nephro-Ale) 1 tab PO 0800 [facility] Last Admin: 06/09/18 08:17 Dose: 1 tab - Labs Labs: 06/07/18 06:33 06/07/18 06:33 - Constitutional Appears: No Acute Distress - Head Exam Head Exam: NORMAL INSPECTION - Eye Exam Eye Exam: EOMI, PERRL - ENT Exam ENT Exam: Mucous Membranes Moist, Normal Oropharynx - Neck Exam Neck Exam: Normal Inspection - Cardiovascular Exam Cardiovascular Exam: REGULAR RHYTHM, +S1, +S2 - GI/Abdominal Exam GI & Abdominal Exam: Soft, Normal Bowel Sounds (OBESE) - Extremities Exam Extremities Exam: Pedal Edema (LT FOOT/HEEL +VE ULCER MINIMAL DISCHARGE ON DRESSING.ULCER UNCHANGED.). absent: Calf Tenderness - Neurological Exam Neurological Exam: Alert, Awake, CN II-XII Intact (LT SIDED WEAKNESS LE> UE), Oriented x3 - Psychiatric Exam Psychiatric exam: Normal Mood - Skin Skin Exam: Normal Color, Warm Assessment and Plan (1) Diabetic foot ulcer Status: Acute (2) Diabetic neuropathy Status: Acute (3) Renal insufficiency Status: Acute (4) Diabetes mellitus Status: Chronic (5) CVA (cerebrovascular accident) Status: Acute - Assessment and Plan (Free Text) Plan: AWAITING PLACEMENT-[facility] VS HOME PATIENT WILL NEED TO CONTINUE IV ANTIBIOTICS FOLLOWS- IV VANCOMYCIN 1 G EVERY 24 HOURLY FOR TOTAL OF 3 WEEKS FOR MRSA INFECTION IN THE LEFT HEEL CAN CHANGE iv ZOSYN TO PO AUGMENTIN 875 TWICE A DAY X 2WEEKS ON DISCHARGE. MONITOR RENAL FUNCTION CLOSELY. F/U CBC/DIFF. EVERY WEEK X 3 WKS BMP.EVERY WEEK X 3 WKS VANCO TROUGH WEEKLY X 3 WEEKS EVERY SUNDAY AND NOTIFY . WILL F/U PT WHILE IN HOSPITAL
[2018-06-10] MEDS: Piperacill/Tazo 3.375gm in Dex 3.375 GM/50 ML BAG IVPB SCH ×3 (00:36→17:55)
--- NOTE | 2018-06-10 01:07 | PN ---
DATE: 06/09/2018 SUBJECTIVE: The patient is a 73-year-old male. The patient was seen and examined at the bedside on 06/09/2018, looking comfortable. No fever, no chills. No hematuria, no hematochezia. No headache, no dizziness,. No chest pain, no palpitation. PHYSICAL EXAMINATION: VITAL SIGNS: Temperature 98.2, pulse 83, blood pressure 135/76, and respiratory rate 20. HEENT: Head: Normocephalic, atraumatic. Eyes: PERRLA. Extraocular muscles intact. Conjunctivae clear. Nose patent. Mucous membranes are moist. NECK: Supple. No carotid bruit. No JVD or thyromegaly. CHEST: Bilaterally symmetrical. HEART: S1, S2 positive. LUNGS: Clear to auscultation. ABDOMEN: Soft. Bowel sounds present. No organomegaly. EXTREMITIES: No edema. No cyanosis. NEUROLOGIC: The patient is awake, alert. Follows simple commands. MEDICATIONS: Colace, Coreg, Cozaar, Crestor, Dilaudid, vitamin D, Dulcolax, aspirin, Eliquis, lactulose, Glucotrol, Lasix, Lyrica, Nephro, vancomycin, Zosyn. LABORATORY DATA: We do not have recent lab today, but reviewed old labs. ASSESSMENT AND PLAN: Mr. Jules Campo is a 73-year-old male with anemia, hyperglycemia, uncontrolled diabetes mellitus, has diabetic foot ulcer with diabetic neuropathy, renal insufficiency, diabetes mellitus, cerebrovascular accident, obesity. Infectious disease is on the case. According to Infectious Disease, intravenous vancomycin 1 gm every 24 hours for total of 3 weeks for Methicillin-resistant Staphylococcus aureus infection in the left heel. Can change intravenous Zosyn to p.o. Augmentin 75 twice a day for two weeks on discharge, and the patient needs really good wound care. Plan was to send the patient to the senior living, but family and the patient wanted to go home. Social workers are working for home infusion and as soon home infusion regimen is done, the patient will go home with followup with primary care physician with wound care and out of bed physical therapy. Zuleima Jackson MD
[2018-06-10] MEDS: HYDROmorphone 0.5 mg/0.5 ml ISec IVP PRN ×3 (03:47→16:17)
[2018-06-10 06:49] LABS: HEMOGLOBIN 10.4 g/dL (12.0-18.0); MEAN CELL VOLUME 89.8 fL (80.0-94.0); MEAN CORPUSCULAR HEMOGLOBIN 30.2 pg (27.0-31.0); MEAN CORPUSCULAR HGB CONC 33.6 g/dL (33.0-37.0); MEAN PLATELET VOLUME 8.6 fL (7.2-11.7); RBC 3.43 Mil/uL (4.40-5.90); RED CELL DISTRIBUTION WIDTH 14.1 % (11.5-14.5); WHITE BLOOD COUNT 10.6 K/uL (4.8-10.8)
--- NOTE | 2018-06-10 07:04 | PN ---
DATE: 06/08/2018 SUBJECTIVE: The patient is a 73-year-old male. The patient was seen and examined on the bedside on 06/08/2018, and looking comfortable. No fever. No chills. No hematuria or hematochezia. No swelling of the leg. No chest pain. No palpitations. No headache. No dizziness. The patient is oriented x3. Resting comfortably. Getting wound care from Podiatry. Antibiotics as per Infectious Disease. Discussion done with nurse practitioner, [place]. PHYSICAL EXAMINATION: VITAL SIGNS: Temperature 98, pulse 81, respiratory rate 20, blood pressure 170/82, pulse oximetry 95%. HEENT: Head; normocephalic, atraumatic. Eyes; PERRLA. Extraocular muscles intact. Conjunctivae clear. Nose patent. Mucous membranes moist. NECK: Supple. No carotid bruit, JVD, or thyromegaly. CHEST: Bilaterally symmetrical. HEART: S1, S2 positive. LUNGS: Clear to auscultation. ABDOMEN: Soft, bowel sounds present. No organomegaly. EXTREMITIES: No edema. No cyanosis. NEUROLOGIC: The patient awake, alert. Follows simple commands. MEDICATIONS: Eliquis, Ecotrin, Dulcolax, Coreg, Colace, Lasix, Lyrica. LABORATORY DATA: White blood cell 9.2, hemoglobin 11.4, hematocrit 34.2, platelets 288. Sodium 135, potassium 4.4, BUN 34, creatinine 1.7, glucose 277. ASSESSMENT AND PLAN: Mr. Alber Vicente is a 73-year-old male with anemia, hyperglycemia, renal insufficiency, has left heel diabetic foot ulceration. According to Podiatry, does not need surgery. MRI shows no evidence of osteomyelitis. Wound culture from the heel shows positive for Methicillin-resistant Staphylococcus aureus. Continue antibiotics as per Infectious Disease. Obesity, diabetes mellitus, hypertension, hypercholesterolemia, needs localized wound care, history of cerebrovascular accident, renal insufficiency. Continue intravenous Zosyn every 8 hours. Continue intravenous vancomycin 1 g every 24 hours. Follow up vancomycin trough prior to the third dose and keep between 10 and 20 mg/mL. Monitor his renal function tests very closely. According to Infectious Disease, can change his Zosyn to p.o. Augmentin 875 mg twice a day for two weeks on discharge. Gastrointestinal and deep venous prophylaxis. Repeat labs. We will follow up. Zuleima Jackson MD [facility] # [id number]
[2018-06-10 07:43] LABS: ALBUMIN 3.5 g/dL (3.5-5.0)
--- NOTE | 2018-06-10 08:13 | CP.PCM.PN ---
Subjective - Date & Time of Evaluation Date of Evaluation: 06/10/18 Time of Evaluation: 08:10 - Subjective Subjective: Podiatry Progress Note for Dr. Tariq 73M seen at bedside this morning for left heel ulceration. Patient is AAO x 3 and NAD, resting comfortably in bed. Denies any acute overnight events or new pedal complaints. Denies of having any pain today. States that he maybe going home today. Denies any recent N/V/F/C/CP/SOB/D. No other pedal complains at this time. Objective - Vital Signs/Intake and Output Vital Signs (last 24 hours): Temp Pulse Resp BP Pulse Ox 98.2 F 77 20 160/80 H 94 L 06/10/18 00:00 06/10/18 00:00 06/10/18 00:00 06/10/18 00:00 06/10/18 00:00 Intake and Output: 06/10/18 06/10/18 06:59 18:59 Intake Total 700 Output Total 500 Balance 200 - Medications Medications: Current Medications Apixaban (Eliquis) 2.5 mg PO BID [facility] Last Admin: 06/09/18 17:49 Dose: 2.5 mg Aspirin (Ecotrin) 81 mg PO DAILY [facility] Last Admin: 06/09/18 09:17 Dose: 81 mg Bisacodyl (Dulcolax) 10 mg MO DAILY PRN PRN Reason: Constipation Carvedilol (Coreg) 3.125 mg PO BID [facility] Last Admin: 06/09/18 17:49 Dose: 3.125 mg Docusate Sodium (Colace) 100 mg PO TID [facility] Last Admin: 06/09/18 17:49 Dose: 100 mg Ergocalciferol (Drisdol 50,000 Intl Units Cap) 1 cap PO Q7D [facility] Last Admin: 06/04/18 23:11 Dose: 1 cap Furosemide (Lasix) 40 mg PO DAILY [facility] Last Admin: 06/09/18 09:16 Dose: 40 mg Glipizide (Glucotrol) 5 mg PO BID [facility] Last Admin: 06/09/18 17:49 Dose: 5 mg Hydromorphone HCl (Dilaudid) 0.5 mg IVP Q6H PRN PRN Reason: Pain, severe (8-10) Last Admin: 06/10/18 03:47 Dose: 0.5 mg Vancomycin HCl 1 gm/ Sodium (Chloride) 250 mls @ 166.7 mls/hr IVPB Q24H [facility]; Protocol Last Admin: 06/09/18 14:01 Dose: 166.7 mls/hr Piperacillin Sod/Tazobactam Sod (Zosyn 3.375 Gm Iv Premix) 3.375 gm in 50 mls @ 100 mls/hr IVPB Q8H [facility]; Protocol Last Admin: 06/10/18 00:36 Dose: 100 mls/hr Insulin Human Regular (Novolin R) 0 unit SC ACHS [facility]; Protocol Last Admin: 06/09/18 21:39 Dose: Not Given Lactulose (Enulose) 20 gm PO DAILY PRN PRN Reason: Constipation Last Admin: 06/08/18 08:02 Dose: 20 gm Losartan Potassium (Cozaar) 100 mg PO DAILY [facility] Last Admin: 06/09/18 09:16 Dose: 100 mg Pregabalin (Lyrica) 50 mg PO DAILY [facility] Last Admin: 06/09/18 09:17 Dose: 50 mg Rosuvastatin Calcium (Crestor) 5 mg PO HS [facility] Last Admin: 06/09/18 21:24 Dose: 5 mg Vitamin B Complex/Vit C/Folic Acid (Nephro-Ale) 1 tab PO 0800 [facility] Last Admin: 06/09/18 08:17 Dose: 1 tab - Labs Labs: 06/10/18 06:43 06/10/18 06:43 - Constitutional Appears: Well, Non-toxic, No Acute Distress - Extremities Exam Additional comments: Lower extremity focused exam: Vasc: DP/PT pulses fully palpable 2/4 b/l. Skin temperature warm to warm from proximal to distal. CFT < 3 seconds to all digits. Minimal edema noted around ulceration site Neuro: Epicritic and protective sensation grossly diminished b/l Derm: Ulceration site noted to plantar heel measuring roughly 3 cm x 2 cm x 0.4 cm with serosanguinous drainage appreciated, decreased from yesterday. Wound base is mainly granular in nature. No tracking, tunneling or undermining appreciated. No other clinical signs of infection noted MSK: Pain with palpation to ulceration site. 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 Tariq Afebrile, absent leukocytosis MRI: No evidence of osteomyelitis Wound cx from heel (+) for MRSA Continue IV abx per ID Dressing changed with hydrogen peroxide, ABD, DSD Per Dr. Tariq, no plans for surgical intervention at this time Ulceration to be treated with [facility]p IV abx and local wound care following patient discharge Dr. Tariq recommends PICC line prior to D/C - PICC in place Stable from podiatry standpoint Podiatry will continue to follow while patient in house
[2018-06-10] MEDS: (Novolin R) Insulin Human Regular 100 units/ml vial SC SCH ×3 (08:44→17:10)
[2018-06-10] MEDS: Multivitamin Vitamin B Complex (Nephro-Vite) Tab PO SCH (08:45)
--- NOTE | 2018-06-10 15:17 | CP.PCM.PN ---
Subjective - Date & Time of Evaluation Date of Evaluation: 06/10/18 Time of Evaluation: 15:17 - Subjective Subjective: AFEBRILE, cOMFORTABLE. LT. HEEL IN DRESSING. lABS REVIEWED CREATININE 2.0/bun 40 .PLAN; CASE DISCUSSED WITH NURSE PRACTITIONER MS WILLIS. DURATION OF ANTIBIOTICS INCLUDING VANCOMYCIN X 2WEEKS, DECREASING DOSE tO 750 MG DAILY WITH CLOSE MONITORING OF RENAL FUNCTIONS. F/U VANCOMYCIN WITH BY MOUTH zYVOX 600 MG TWICE A DAY FOR 1 WEEK AFTER COMPLETION OFF VANCOMYCIN. cONTINUE BY MOUTH aUGMENTIN, DECREASE DOSE TO 500 TWICE A DAY FOR 2 WEEKS. PATIENT WILL BE MONITORED BY PMD.- WHILE AT [facility] Objective - Vital Signs/Intake and Output Vital Signs (last 24 hours): Temp Pulse Resp BP Pulse Ox 98.2 F 77 20 184/90 H 94 L 06/10/18 00:00 06/10/18 00:00 06/10/18 00:00 06/10/18 10:27 06/10/18 00:00 Intake and Output: 06/10/18 06/10/18 06:59 18:59 Intake Total 700 800 Output Total 500 775 Balance 200 25 - Medications Medications: Current Medications Apixaban (Eliquis) 2.5 mg PO BID [facility] Last Admin: 06/10/18 10:11 Dose: 2.5 mg Aspirin (Ecotrin) 81 mg PO DAILY [facility] Last Admin: 06/10/18 10:28 Dose: 81 mg Bisacodyl (Dulcolax) 10 mg DC DAILY PRN PRN Reason: Constipation Carvedilol (Coreg) 3.125 mg PO BID [facility] Last Admin: 06/10/18 10:12 Dose: 3.125 mg Docusate Sodium (Colace) 100 mg PO TID [facility] Last Admin: 06/10/18 14:01 Dose: 100 mg Ergocalciferol (Drisdol 50,000 Intl Units Cap) 1 cap PO Q7D [facility] Last Admin: 06/04/18 23:11 Dose: 1 cap Furosemide (Lasix) 40 mg PO DAILY [facility] Last Admin: 06/10/18 10:27 Dose: 40 mg Glipizide (Glucotrol) 5 mg PO BID [facility] Last Admin: 06/10/18 10:11 Dose: 5 mg Hydromorphone HCl (Dilaudid) 0.5 mg IVP Q6H PRN PRN Reason: Pain, severe (8-10) Last Admin: 06/10/18 10:15 Dose: 0.5 mg Vancomycin HCl 1 gm/ Sodium (Chloride) 250 mls @ 166.7 mls/hr IVPB Q24H [facility]; Protocol Last Admin: 06/10/18 14:50 Dose: 166.7 mls/hr Piperacillin Sod/Tazobactam Sod (Zosyn 3.375 Gm Iv Premix) 3.375 gm in 50 mls @ 100 mls/hr IVPB Q8H [facility]; Protocol Last Admin: 06/10/18 10:15 Dose: 100 mls/hr Insulin Human Regular (Novolin R) 0 unit SC ACHS [facility]; Protocol Last Admin: 06/10/18 12:40 Dose: 8 u Lactulose (Enulose) 20 gm PO DAILY PRN PRN Reason: Constipation Last Admin: 06/08/18 08:02 Dose: 20 gm Losartan Potassium (Cozaar) 100 mg PO DAILY [facility] Last Admin: 06/10/18 10:12 Dose: 100 mg Pregabalin (Lyrica) 50 mg PO DAILY [facility] Last Admin: 06/10/18 10:11 Dose: 50 mg Rosuvastatin Calcium (Crestor) 5 mg PO HS [facility] Last Admin: 06/09/18 21:24 Dose: 5 mg Vitamin B Complex/Vit C/Folic Acid (Nephro-Ale) 1 tab PO 0800 [facility] Last Admin: 06/10/18 08:45 Dose: 1 tab - Labs Labs: 06/10/18 06:43 06/10/18 06:43 - Constitutional Appears: No Acute Distress - Head Exam Head Exam: NORMAL INSPECTION - Eye Exam Eye Exam: EOMI, PERRL - ENT Exam ENT Exam: Normal Oropharynx - Neck Exam Neck Exam: Normal Inspection - Respiratory Exam Respiratory Exam: Clear to Ausculation Bilateral - Cardiovascular Exam Cardiovascular Exam: REGULAR RHYTHM, +S1, +S2 - GI/Abdominal Exam GI & Abdominal Exam: Soft, Normal Bowel Sounds - Extremities Exam Extremities Exam: Pedal Edema (LEFT FOOT. +VE DRESSING IN PLACE.). absent: Calf Tenderness - Neurological Exam Neurological Exam: Alert, Awake, Oriented x3. absent: Abnormal Gait - Psychiatric Exam Psychiatric exam: Normal Mood - Skin Skin Exam: Normal Color, Warm Assessment and Plan (1) Diabetic foot ulcer Status: Acute (2) Diabetic neuropathy Status: Acute (3) Renal insufficiency Status: Acute (4) Diabetes mellitus Status: Chronic (5) CVA (cerebrovascular accident) Status: Acute - Assessment and Plan (Free Text) Plan: DISCUSSED ABOVE.
[2018-06-10 18:00] VITALS: BP 182/93; PULSE 70; TEMP 97.9; O2SAT 98
--- NOTE | 2018-06-17 02:35 | DS ---
The patient was discharged to [facility] on 06/10/2018. The patient was seen and examined at the bedside on 06/10/2018. CHIEF COMPLAINT: Foot pain. HISTORY OF PRESENT ILLNESS: Mr. Alber Vicente is a 73-year-old male, well known to me from previous admissions. He has his own private physician as outpatient. I am seeing him just in the hospital. He came to the emergency room, sent by the framing carpenter for worsening left foot diabetic foot ulcer. The patient is status post debridement, p.o. antibiotics, but not improving, failed outpatient treatment. We admitted the patient, did MRI of the lower extremity, seen by Dr. Berlin Guerrero, Infectious Disease, and by framing carpenter. MRI shows a shallow posterolateral heel ulcer with localized cellulitis, though no definite evidence of localized osteomyelitis, marrow reactive changes more anteriorly in the lateral heel, felt to be stress related rather than osteomyelitis. Plan was to give antibiotics for a couple of weeks. Then, we discharged the patient to [facility] with IV antibiotics as per Dr. Berlin Guerrero of Infectious Disease. Continue vancomycin 750 mg IV for 2 weeks with Augmentin 500 mg p.o. b.i.d. for 2 weeks. After completing, the patient needs to continue Zyvox 600 mg p.o. b.i.d. for one more week. PAST MEDICAL HISTORY: As above, obesity, diabetes mellitus, diabetic foot ulcer. HABITS: No smoking, no drugs, no ethanol. ALLERGIES: THE PATIENT IS NOT ALLERGIC TO ANY MEDICATIONS. MEDICATIONS: Home medications are reviewed by me. REVIEW OF SYSTEMS: The patient was seen and examined at bedside, looking comfortable. No fever, no chills. No hematuria, no hematochezia. No headache, no dizziness. No chest pain, no palpitations. Still having foot pain. PHYSICAL EXAMINATION: VITAL SIGNS: Temperature 98.2, pulse 77, respiratory rate 20, blood pressure 184/90, pulse oximetry 94%. HEENT: Head: Normocephalic, atraumatic. Eyes: PERRLA. Extraocular muscles intact. Conjunctivae clear. Nose is patent. Mucous membranes are moist. NECK: Supple. No carotid bruit or thyromegaly. CHEST: Bilaterally symmetrical. HEART: S1 and S2 positive. LUNGS: Clear to auscultation. ABDOMEN: Soft. Bowel sounds present. No organomegaly. EXTREMITIES: No edema. No cyanosis. The foot has bandage. NEUROLOGIC: Awake, alert. Follows simple commands. MEDICATIONS: Reviewed by me. Eliquis, Ecotrin, Dulcolax, Coreg, Colace, vitamin D, Lasix, Glucotrol, Dilaudid, Zosyn, and insulin sliding scale. LABORATORY DATA: White blood cells 10.6, hemoglobin 10.4, hematocrit 30.8, platelets 279. Sodium 135, potassium 4.4, BUN 42, creatinine 2, and glucose 228. ASSESSMENT AND PLAN: Mr. Alber Vicente is a 73-year-old male with anemia, renal insufficiency, diabetes mellitus, has diabetic foot ulcers, diabetic neuropathy, obesity, coronary artery disease, history of cerebrovascular accident, has foot ulcers, getting vancomycin, got Zosyn, switching to Augmentin as outpatient with vancomycin, transferred to [facility]. We will continue treatment there. We will call Infectious Disease consult there to monitor vancomycin trough and major labs. Gastrointestinal and deep vein thrombosis prophylaxis given. Couple of times discussion done with the patient, nursing staff and family is aware of the treatment plan. Zuleima Jackson MD
== END 2018-06-10 20:08 | DRG 638 ==
LOC: C.ER 06:12 → C.9E 09:13 → C.3T 21:44
PROVIDERS: ADMIT Internal Medicine; ATTEND Internal Medicine
PROC: 05HD33Z Insertion of Infusion Device into Right Cephalic Vein, Percutaneous Approach (ICD-10-PCS; principal; 2018-06-07)
DX: E11.621 Type 2 diabetes mellitus with foot ulcer (principal); L03.116 Cellulitis of left lower limb; L97.429 Non-pressure chronic ulcer of left heel and midfoot with unspecified severity; I69.254 Hemiplegia and hemiparesis following other nontraumatic intracranial hemorrhage affecting left non-dominant side; E11.65 Type 2 diabetes mellitus with hyperglycemia; E66.9 Obesity, unspecified; E78.5 Hyperlipidemia, unspecified; I10 Essential (primary) hypertension; N28.9 Disorder of kidney and ureter, unspecified; N32.81 Overactive bladder; Z79.4 Long term (current) use of insulin; Z86.14 Personal history of Methicillin resistant Staphylococcus aureus infection; Z89.411 Acquired absence of right great toe; Z91.19 Patient's noncompliance with other medical treatment and regimen; Z95.5 Presence of coronary angioplasty implant and graft; E11.40 Type 2 diabetes mellitus with diabetic neuropathy, unspecified; D64.9 Anemia, unspecified; Z68.34 Body mass index [BMI] 34.0-34.9, adult; I25.10 Atherosclerotic heart disease of native coronary artery without angina pectoris; L97.509 Non-pressure chronic ulcer of other part of unspecified foot with unspecified severity

== ENCOUNTER 2018-08-24 22:05 | Inpatient (IN) | payer MEDICARE, BC ==
[2018-08-24 22:06] VITALS: BMI 42.9
--- NOTE | 2018-08-24 23:36 | C.PDOC ---
History Of Present Illness 73 y/o male is brought in by ambulance for weakness, lethargy, and fever. Patient has a chronic left healed wound and is essentially bedbound. Denies cough. Complains of frequent urination due to hyperactive bladder. Denies foul smelling urine. Patient was admitted before for diabetic foot ulcer in April and May. In May visit, MRI of left heel done, negative for osteomyelitis. Time Seen by Provider: 08/24/18 22:37 Chief Complaint (Nursing): Lower Extremity Problem/Injury History Per: Patient, EMS History/Exam Limitations: no limitations Onset/Duration Of Symptoms: Days Current Symptoms Are (Timing): Still Present Past Medical History Reviewed: Historical Data, Nursing Documentation, Vital Signs Vital Signs: Last Vital Signs Temp 102.4 F H 08/24/18 22:23 Pulse 117 H 08/24/18 22:23 Resp 24 08/24/18 22:23 BP 164/77 H 08/24/18 22:23 Pulse Ox 95 08/24/18 22:23 - Medical History PMH: Anemia, Arthritis, Diabetes, HTN, Hypercholesterolemia, Hyperlipidemia, Peripheral Edema Denies: Deep Vein Thrombosis Surgical History: Coronary Stent (X1) Denies: Pacemaker - [facility] Procedures DETACHMENT AT RIGHT 1ST TOE, COMPLETE, OPEN APPROACH (01/30/17) DETACHMENT AT RIGHT 1ST TOE, HIGH, OPEN APPROACH (01/30/17) DILATION OF RIGHT PERONEAL ARTERY, PERCUTANEOUS APPROACH (12/26/16) EXCISION OF LEFT FOOT SKIN, EXTERNAL APPROACH (04/17/18) EXTIRPATION OF MATTER FROM R PERONEAL ART, PERC APPROACH (12/26/16) INSERT OF INFUSION DEV INTO R CEPHALIC VEIN, PERC APPROACH (06/04/18) INSERTION OF INTRALUM DEV INTO R FEM ART, PERC APPROACH (12/26/16) INSPECTION OF BLADDER, ENDO (06/21/15) RESECTION OF PROSTATE, ENDO (06/21/15) ULTRASONOGRAPHY OF RIGHT AND LEFT HEART, TRANSESOPHAGEAL (10/12/16) Family History: States: No Known Family Hx - Social History Hx Alcohol Use: No Hx Substance Use: No - Immunization History Hx Tetanus Toxoid Vaccination: No Hx Influenza Vaccination: Yes Hx Pneumococcal Vaccination: Yes Review Of Systems Except As Marked, All Systems Reviewed And Found Negative. Constitutional: Positive for: Fever, Weakness, Other (Lethargy) Respiratory: Negative for: Cough Genitourinary: Positive for: Other (frequent urination) Physical Exam - Physical Exam Appears: Non-toxic, No Acute Distress, Other (morbidly obese) Skin: Warm, Dry Head: Atraumatic Eye(s): bilateral: Normal Inspection Oral Mucosa: Moist Neck: Supple Cardiovascular: Rhythm Regular, No Murmur Respiratory: Normal Breath Sounds, No Rales, No Rhonchi, No Wheezing Gastrointestinal/Abdominal: Soft, No Tenderness, Other (obese) Extremity: Other (left leg edema to mid thigh to dorsum of foot, wound vac to left heel ulcer; Right leg normal) Neurological/Psych: Oriented x3, Normal Speech ED Course And Treatment - Laboratory Results Result Diagrams: 08/25/18 00:20 08/25/18 01:05 Lab Interpretation: Abnormal (2% bands, d-dimer 308) ECG: Interpreted By Me ECG Rhythm: Sinus Rhythm ECG Interpretation: Abnormal Rate From EC O2 Sat by Pulse Oximetry: 95 (RA) Pulse Ox Interpretation: Normal - Radiology CXR: Interpreted by Me CXR Interpretation: Yes: No Acute Disease Reevaluation Time: 02:02 Reassessment Condition: Unchanged - Physician Consult Information Outcome Of Conversation: 0200: d/w Dr. Jackson- PMD, ok to Tele Obs Medical Decision Making Medical Decision Making: Plan: --EKG --Labs --Chest XR --UA L lower leg cellulitis ? related to L heel chronic ulcer d-dimer wnl for age and mild elev prob related to cellulitis Disposition Doctor Will See Patient In The: Hospital Counseled Patient/Family Regarding: Studies Performed, Diagnosis - Disposition Disposition: HOSPITALIZED Disposition Time: 02:04 Condition: GOOD Forms: [employer] (Albanian) - Clinical Impression Clinical Impression: Cellulitis of left lower leg - Scribe Statement The provider has reviewed the documentation as recorded by the Lila Ryan Provider Attestation: All medical record entries made by the Lila were at my direction and p ersonally dictated by me. I have reviewed the chart and agree that the record accurately reflects my personal performance of the history, physical exam, medical decision making, and the department course for this patient. I have also personally directed, reviewed, and agree with the discharge instructions and disposition.
[2018-08-25 00:33] LABS: BASO % 0.2 % (0.0-2.0); EOS # 0.1 K/uL (0.0-0.7); EOS % 0.2 % (0.0-4.0); HEMOGLOBIN 12.7 g/dL (12.0-18.0); LYMPH # 0.9 K/uL (1.0-4.3); LYMPH % 3.1 % (20.0-40.0); MEAN CELL VOLUME 89.7 fL (80.0-94.0); MEAN CORPUSCULAR HEMOGLOBIN 29.3 pg (27.0-31.0); MEAN CORPUSCULAR HGB CONC 32.7 g/dL (33.0-37.0); MEAN PLATELET VOLUME 9.1 fL (7.2-11.7); MONO % 3.3 % (0.0-10.0); NEUT # 27.2 K/uL (1.8-7.0); NEUT % 93.2 % (50.0-75.0); PLATELET COUNT 273 K/uL (130-400); RBC 4.35 Mil/uL (4.40-5.90); RED CELL DISTRIBUTION WIDTH 14.4 % (11.5-14.5); WHITE BLOOD COUNT 29.2 K/uL (4.8-10.8)
[2018-08-25 00:42] LABS: INR 1.1
[2018-08-25 01:21] LABS: ALBUMIN 3.7 g/dL (3.5-5.0); CALCIUM 9.4 mg/dl (8.6-10.4)
[2018-08-25 01:25] LABS: BANDS 2 % (0-2); LYMPHOCYTE 2 % (20-40); MONOCYTE 2 % (0-10); NEUTROPHIL 94 % (50-75); PLATELET ESTIMATE NORMAL (NORMAL); TOTAL CELLS COUNTED 100; TOXIC GRANULATION PRESENT
[2018-08-25 01:31] LABS: SQUAMOUS EPITHIAL < 1 /hpf (0-5); URINE BACTERIA RARE (<OCC); URINE BILIRUBIN NEGATIVE (NEGATIVE); URINE BLOOD 1+ (NEGATIVE); URINE CLARITY Hazy (Clear); URINE COLOR Yellow (YELLOW); URINE GLUCOSE (UA) 2+ mg/dL (Normal); URINE LEUKOCYTE ESTERASE NEG Leu/uL (Negative); URINE PROTEIN 2+ mg/dL (NEGATIVE); URINE UROBILINOGEN NORMAL mg/dL (0.2-1.0)
[2018-08-25 01:32] LABS: TROPONIN I 0.025 ng/mL (0.00-0.120)
[2018-08-25] MEDS ORDERED: Piperacillin/Tazobact 3.375 gm 100 ML IV STA (01:58)
[2018-08-25] MEDS ORDERED: Vancomycin 1 gm/NS 200 ml 1 GM/200 ML BAG IVPB STA (02:00)
[2018-08-25] MEDS ORDERED: Ergocalciferol 50,000 Intl Units Cap PO SCH (02:15)
[2018-08-25] MEDS ORDERED: Piperacillin/Tazobact 3.375 gm 100 ML IVPB ONE (02:36)
[2018-08-25] MEDS ORDERED: Vancomycin 1 GM 1 GM/250 ML BAG IVPB ONE (02:37)
[2018-08-25 02:49] LABS: VENOUS BLOOD GAS BASE EXCESS -2.9 mmol/L (0.0-2.0); VENOUS BLOOD GAS PCO2 33 mmHg (40-60); VENOUS BLOOD GAS PO2 57 mm/Hg (30-55); VENOUS BLOOD PH 7.41 (7.32-7.43)
[2018-08-25] MEDS ORDERED: Sodium Chloride 0.9% 1,000 ML IV ONE (03:00)
[2018-08-25] MEDS: (Novolin R) Insulin Human Regular 100 units/ml vial SC SCH ×4 (08:10→23:02)
--- NOTE | 2018-08-25 08:12 | RAD ---
Date of service: 08/24/2018 PROCEDURE: CHEST RADIOGRAPH, 1 VIEW HISTORY: SOB COMPARISON: 06/04/2018. FINDINGS: LUNGS: The lungs are well inflated and clear. PLEURA: No pneumothorax or pleural effusion. CARDIOVASCULAR: The heart is normal in size. There are aortic atherosclerotic calcifications present. OSSEOUS STRUCTURES: Within normal limits for the patient's age. VISUALIZED UPPER ABDOMEN: Normal. OTHER FINDINGS: None. IMPRESSION: No active pulmonary disease.
[2018-08-25] MEDS: Multivitamin Vitamin B Complex (Nephro-Vite) Tab PO SCH (08:23)
--- NOTE | 2018-08-25 12:44 | CP.PCM.CON ---
History of Present Illness - History of Present Illness History of Present Illness: INFECTIOUS DISEASE CONSULT HPI; 73 year old male with PMHx of Anemia, Arthritis, Diabetes, HTN, Hypercholesterolemia, Hyperlipidemia, Peripheral Edema evaluated for left heel chronic wound. PATIENT DENIES ANY FEVER OR CHILLS. pATIENT HAS BILATERAL SWELLING OF HIS LOWER EXTREMITIES WITH CHRONIC EDEMA. pATIENT'S BLOOD WORK SHOWED LEUKOCYTOSIS OF 29,000 WITH bun AND CREATININE OFF 1.8/45. pATIENT WAS ALSO WITH HYPEGLYCEMIA WITH SUGARS OF MORE THAN 300. CHEST X-RAY ON ADMISSION WAS UNREMARKABLE. sERUM LACTATE 2.1 PATIENT HAD A WOUND VAC TO THE LEFT FOOT ON ADMISSION. PER OLD RECORDS, H/O L FOOT ULCER +MRSA pATIENT A POOR HISTORIAN AND FORGETFUL. UNABLE TO GIVE ANY DETAILS. Infectious disease consult requested by PMD for evaluation of his nonhealing CHRONIC wound ulcer left heel. PATIENT ALSO HAD DEBRIDEMENT OF THE LEFT HEEL ULCER. DURING HIS LAST ADMISSION. PATIENT PRESENTLY STARTED ON iv zOSYN 3.375 iv PIGGYBACK EVERY 8 HOURLY 08/25/18 PATIENT ALSO ON VANCOMYCIN 1 G EVERY 24 HOURLY 08/25/18 PATIENT HAS HISTORY OFF RIGHT FIRST TOE AMPUTATION 01/2017 PMH: Anemia, Arthritis, Diabetes, HTN, Hypercholesterolemia, Hyperlipidemia, Peripheral Edema, MULTIFOCAL CVA'S,MORBID OBESITY. Surgical History: Coronary Stent (X1)DRUG-ELUTING CARDIAC STENT 02/2017, HX TURP X2 SOCIAL HISTORY; Hx Alcohol Use: No Hx Substance Use: No - Immunization History Hx Tetanus Toxoid Vaccination: No Hx Influenza Vaccination: Yes Hx Pneumococcal Vaccination: Yes ALLERGY; NKA Review of Systems - Constitutional Constitutional: absent: Chills, Fever - EENT Eyes: absent: Change in Vision Nose/Mouth/Throat: absent: Mouth Lesions - Cardiovascular Cardiovascular: Leg Edema. absent: Chest Pain - Respiratory Respiratory: Dyspnea on Exertion. absent: Cough - Gastrointestinal Gastrointestinal: Constipation. absent: Abdominal Pain, Diarrhea, Nausea, Vomiting - Genitourinary Genitourinary: absent: Dysuria - Neurological Neurological: Abnormal Gait - Hematologic/Lymphatic Hematologic: As Per HPI Past Patient History - Infectious Disease Hx of Infectious Diseases: None - Past Medical History & Family History Past Medical History?: Yes - Past Social History Smoking Status: Never Smoked - CARDIAC Hx Hypercholesterolemia: Yes Hx Hypertension: Yes Hx Pacemaker: No Hx Peripheral Edema: Yes - NEUROLOGICAL Hx Neurological Disorder: Yes HX Cerebrovascular Accident: Yes - HEENT Hx HEENT Problems: Yes Hx Cataracts: Yes (BILAT.) - ENDOCRINE/METABOLIC Hx Endocrine Disorders: Yes Hx Diabetes Mellitus Type 2: Yes - HEMATOLOGICAL/ONCOLOGICAL Hx Anemia: Yes - INTEGUMENTARY Hx Dermatological Problems: Yes - MUSCULOSKELETAL/RHEUMATOLOGICAL Hx Arthritis: Yes - GASTROINTESTINAL Hx Gastrointestinal Disorders: Yes - GENITOURINARY/GYNECOLOGICAL Hx Prostate Problems: Yes - PSYCHIATRIC Hx Substance Use: No - SURGICAL HISTORY Hx Coronary Stent: Yes (X1) - ANESTHESIA Hx Anesthesia: Yes Hx Anesthesia Reactions: No Hx Malignant Hyperthermia: No Meds Allergies/Adverse Reactions: Allergies Allergy/AdvReac Type Severity Reaction Status Date / Time No Known Allergies Allergy Verified 06/04/18 06:24 - Medications Medications: Current Medications Apixaban (Eliquis) 2.5 mg PO BID [facility] Last Admin: 08/25/18 09:40 Dose: 2.5 mg Aspirin (Ecotrin) 81 mg PO DAILY [facility] Last Admin: 08/25/18 09:41 Dose: 81 mg Carvedilol (Coreg) 3.125 mg PO BID [facility] Last Admin: 08/25/18 09:41 Dose: 3.125 mg Ergocalciferol (Drisdol 50,000 Intl Units Cap) 1 cap PO Q7D [facility] Last Admin: 08/25/18 02:57 Dose: Not Given Furosemide (Lasix) 40 mg PO DAILY [facility] Last Admin: 08/25/18 09:40 Dose: 40 mg Insulin Human Regular (Novolin R) 0 unit SC [facility]; Protocol Last Admin: 08/25/18 08:10 Dose: 2 unit Losartan Potassium (Cozaar) 100 mg PO DAILY [facility] Last Admin: 08/25/18 09:41 Dose: 100 mg Pregabalin (Lyrica) 50 mg PO DAILY [facility] Last Admin: 08/25/18 09:41 Dose: 50 mg Rosuvastatin Calcium (Crestor) 5 mg PO [facility] Vitamin B Complex/Vit C/Folic Acid (Nephro-Ale) 1 tab PO 0800 [facility] Last Admin: 08/25/18 08:23 Dose: 1 tab Physical Exam - Constitutional Appears: No Acute Distress - Head Exam Head Exam: NORMAL INSPECTION - Eye Exam Eye Exam: EOMI, PERRL - ENT Exam ENT Exam: Normal Oropharynx - Neck Exam Neck exam: Positive for: Normal Inspection - Respiratory Exam Respiratory Exam: Clear to Auscultation Bilateral, NORMAL BREATHING PATTERN - Cardiovascular Exam Cardiovascular Exam: REGULAR RHYTHM, +S1, +S2 - GI/Abdominal Exam GI & Abdominal Exam: Normal Bowel Sounds, Soft. absent: Organomegaly - Extremities Exam Extremities exam: Positive for: pedal edema (B/L LE . LT HEEL CHRONIC ULCER S/P RECENT CLEAN DRY DRESSING . WOUND VAC REMOVED.). Negative for: calf tenderness - Neurological Exam Neurological exam: Alert, CN II-XII Intact, Oriented x3 - Psychiatric Exam Psychiatric exam: Normal Mood - Skin Skin Exam: Normal Color, Warm Results - Vital Signs Recent Vital Signs: Last Vital Signs Temp 98.6 F 08/25/18 07:00 Pulse 92 H 08/25/18 07:00 Resp 18 08/25/18 07:00 BP 142/78 08/25/18 09:40 Pulse Ox 98 08/25/18 09:16 - Labs Result Diagrams: 08/26/18 07:41 08/26/18 07:41 Labs: Laboratory Results - last 24 hr 08/24/18 08/25/18 08/25/18 22:37 00:20 00:20 WBC 29.2 H D RBC 4.35 L Hgb 12.7 D Hct 39.0 MCV 89.7 MCH 29.3 MCHC 32.7 L RDW 14.4 Plt Count 273 MPV 9.1 Neut % (Auto) 93.2 H Lymph % (Auto) 3.1 L [place] % (Auto) 3.3 Eos % (Auto) 0.2 Baso % (Auto) 0.2 Neut # (Auto) 27.2 H Lymph # (Auto) 0.9 L [place] # (Auto) 1.0 H Eos # (Auto) 0.1 Baso # (Auto) 0.0 Neutrophils % (Manual) 94 H Band Neutrophils % 2 Lymphocytes % (Manual) 2 L Monocytes % (Manual) 2 Toxic Granulation Present Platelet Estimate Normal RBC Morphology Normal PT 12.0 INR 1.1 APTT 40 H D-Dimer, Quantitative Cancelled pO2 VBG pH VBG pCO2 VBG HCO3 VBG Total CO2 VBG O2 Sat (Calc) VBG Base Excess VBG Potassium Glucose Lactate Sodium Potassium Chloride Carbon Dioxide Anion Gap BUN Creatinine Est GFR ( Amer) Est GFR (Non-Af Amer) POC Glucose (mg/dL) 293 H Random Glucose Lactic Acid Calcium Total Bilirubin AST ALT Alkaline Phosphatase Troponin I Total Protein Albumin Globulin Albumin/Globulin Ratio Venous Blood Potassium Urine Color Urine Clarity Urine pH Ur Specific [place] Urine Protein Urine Glucose (UA) Urine Ketones Urine Blood Urine Nitrate Urine Bilirubin Urine Urobilinogen Ur Leukocyte Esterase Urine WBC (Auto) Urine RBC (Auto) Ur Squamous Epith Cells Urine Bacteria 08/25/18 08/25/18 08/25/18 00:56 01:05 01:19 WBC RBC Hgb Hct MCV MCH MCHC RDW Plt Count MPV Neut % (Auto) Lymph % (Auto) [place] % (Auto) Eos % (Auto) Baso % (Auto) Neut # (Auto) Lymph # (Auto) [place] # (Auto) Eos # (Auto) Baso # (Auto) Neutrophils % (Manual) Band Neutrophils % Lymphocytes % (Manual) Monocytes % (Manual) Toxic Granulation Platelet Estimate RBC Morphology PT INR APTT D-Dimer, Quantitative 308 H pO2 VBG pH VBG pCO2 VBG HCO3 VBG Total CO2 VBG O2 Sat (Calc) VBG Base Excess VBG Potassium Glucose Lactate Sodium 135 Potassium 5.1 Chloride 106 Carbon Dioxide 23 Anion Gap 12 BUN 45 H Creatinine 1.8 H Est GFR ( Amer) 45 Est GFR (Non-Af Amer) 37 POC Glucose (mg/dL) Random Glucose 225 H Lactic Acid Calcium 9.4 Total Bilirubin 0.4 AST 19 ALT 13 L Alkaline Phosphatase 58 Troponin I 0.0250 Total Protein 7.3 Albumin 3.7 Globulin 3.7 Albumin/Globulin Ratio 1.0 Venous Blood Potassium Urine Color Yellow Urine Clarity Hazy Urine pH 5.0 Ur Specific [place] 1.016 Urine Protein 2+ H Urine Glucose (UA) 2+ H Urine Ketones Negative Urine Blood 1+ H Urine Nitrate Negative Urine Bilirubin Negative Urine Urobilinogen Normal Ur Leukocyte Esterase Neg Urine WBC (Auto) 6 H Urine RBC (Auto) 13 H Ur Squamous Epith Cells < 1 Urine Bacteria Rare 08/25/18 08/25/18 08/25/18 02:24 02:40 06:07 WBC RBC Hgb Hct MCV MCH MCHC RDW Plt Count MPV Neut % (Auto) Lymph % (Auto) [place] % (Auto) Eos % (Auto) Baso % (Auto) Neut # (Auto) Lymph # (Auto) [place] # (Auto) Eos # (Auto) Baso # (Auto) Neutrophils % (Manual) Band Neutrophils % Lymphocytes % (Manual) Monocytes % (Manual) Toxic Granulation Platelet Estimate RBC Morphology PT INR APTT D-Dimer, Quantitative pO2 57 H VBG pH 7.41 VBG pCO2 33 L VBG HCO3 22.5 VBG Total CO2 21.9 L VBG O2 Sat (Calc) 92.0 H VBG Base Excess -2.9 L VBG Potassium 5.4 H Glucose 255 H Lactate 2.1 Sodium 138.0 Potassium Chloride 107.0 Carbon Dioxide Anion Gap BUN Creatinine Est GFR ( Amer) Est GFR (Non-Af Amer) POC Glucose (mg/dL) 264 H 242 H Random Glucose Lactic Acid Calcium Total Bilirubin AST ALT Alkaline Phosphatase Troponin I Total Protein Albumin Globulin Albumin/Globulin Ratio Venous Blood Potassium 5.4 H Urine Color Urine Clarity Urine pH Ur Specific [place] Urine Protein Urine Glucose (UA) Urine Ketones Urine Blood Urine Nitrate Urine Bilirubin Urine Urobilinogen Ur Leukocyte Esterase Urine WBC (Auto) Urine RBC (Auto) Ur Squamous Epith Cells Urine Bacteria 08/25/18 08/25/18 06:22 10:50 WBC RBC Hgb Hct MCV MCH MCHC RDW Plt Count MPV Neut % (Auto) Lymph % (Auto) [place] % (Auto) Eos % (Auto) Baso % (Auto) Neut # (Auto) Lymph # (Auto) [place] # (Auto) Eos # (Auto) Baso # (Auto) Neutrophils % (Manual) Band Neutrophils % Lymphocytes % (Manual) Monocytes % (Manual) Toxic Granulation Platelet Estimate RBC Morphology PT INR APTT D-Dimer, Quantitative pO2 VBG pH VBG pCO2 VBG HCO3 VBG Total CO2 VBG O2 Sat (Calc) VBG Base Excess VBG Potassium Glucose Lactate Sodium Potassium Chloride Carbon Dioxide Anion Gap BUN Creatinine Est GFR ( Amer) Est GFR (Non-Af Amer) POC Glucose (mg/dL) 225 H Random Glucose Lactic Acid 1.4 Calcium Total Bilirubin AST ALT Alkaline Phosphatase Troponin I Total Protein Albumin Globulin Albumin/Globulin Ratio Venous Blood Potassium Urine Color Urine Clarity Urine pH Ur Specific [place] Urine Protein Urine Glucose (UA) Urine Ketones Urine Blood Urine Nitrate Urine Bilirubin Urine Urobilinogen Ur Leukocyte Esterase Urine WBC (Auto) Urine RBC (Auto) Ur Squamous Epith Cells Urine Bacteria - Imaging and Cardiology Chest x-ray Status: Report reviewed by me (NAD) Assessment & Plan (1) Diabetic foot ulcer Status: Acute (2) Cellulitis of left lower leg Status: Acute (3) Diabetic neuropathy Status: Acute (4) Renal insufficiency Status: Acute (5) CVA (cerebrovascular accident) Status: Acute - Assessment and Plan (Free Text) Plan: PLAN pANCULTURES, ESR CRP. XRAY LT FOOT ap AND LATERAL VIEW R/O OM. tHREE-PHASE BONE SCAN LEFT FOOT RULE OUT OSTEOMYELITIS. sTART iv zOSYN 3.375 EVERY 8 HOURLY 08/25/18. ADD iv VANCOMYCIN 1 G EVERY 24 HOURLY 08/25/18. F/U RENAL FUNCTIONS CLOSELY F/U vANCO TROUGH PRIOR TO THE FOURTH DOSE AND KEEP BETWEEN 10 AND 20MG/L lOCAL WOUND CARE PER PODIATRY.' wILL FOLLOW ALONG WITH YOU AND MAKE FURTHER RECOMMENDATIONS.
[2018-08-25] MEDS: Piperacill/Tazo 3.375gm in Dex 3.375 GM/50 ML BAG IVPB SCH ×2 (14:00→21:07)
[2018-08-26] MEDS: Piperacill/Tazo 3.375gm in Dex 3.375 GM/50 ML BAG IVPB SCH ×3 (04:46→22:23)
[2018-08-26 08:01] LABS: MEAN CELL VOLUME 88.3 fL (80.0-94.0); MEAN CORPUSCULAR HEMOGLOBIN 28.8 pg (27.0-31.0); MEAN CORPUSCULAR HGB CONC 32.7 g/dL (33.0-37.0); MEAN PLATELET VOLUME 8.8 fL (7.2-11.7); RBC 3.54 Mil/uL (4.40-5.90); RED CELL DISTRIBUTION WIDTH 14.5 % (11.5-14.5)
[2018-08-26 08:11] LABS: HEMOGLOBIN 10.2 g/dL (12.0-18.0)
[2018-08-26 08:12] LABS: WHITE BLOOD COUNT 11.6 K/uL (4.8-10.8)
[2018-08-26 08:13] LABS: CALCIUM 9.2 mg/dl (8.6-10.4)
[2018-08-26] MEDS: Multivitamin Vitamin B Complex (Nephro-Vite) Tab PO SCH (08:39)
[2018-08-26] MEDS: (Novolin R) Insulin Human Regular 100 units/ml vial SC SCH ×4 (08:39→22:10)
--- NOTE | 2018-08-26 10:00 | CARD ---
APPROVED REPORT Date of service: 08/24/2018 EKG Measurement Heart [id number] <Conclusion> Sinus tachycardia Incomplete right bundle branch block Borderline ECG
--- NOTE | 2018-08-26 16:20 | CP.PCM.CON ---
History of Present Illness - History of Present Illness History of Present Illness: Podiatry Consult Note: Dr. Daniels 73 year old male with PMHx of Anemia, Arthritis, Diabetes, HTN, Hypercholesterolemia, Hyperlipidemia, Peripheral Edema was seen and evaluated at bedside for left heel wound. Patient states that he came to the hospital in an ambulance over the weekend. States that he felt weakness, lethargy and fever which is what led his decision to come to the hospital. States that he has mild pain on the left heel. Denies of having recent F/N/V/C/SOB/CP/headache. No other pedal complains at this time. PMHx:Anemia, Arthritis, Diabetes, HTN, Hypercholesterolemia, Hyperlipidemia, Peripheral Edema PSHx: Coronary stent Allergies: NKDA Review of Systems - Constitutional Constitutional: As Per HPI Past Patient History - Infectious Disease Hx of Infectious Diseases: None - Past Medical History & Family History Past Medical History?: Yes - Past Social History Smoking Status: Never Smoked - CARDIAC Hx Hypertension: Yes - PULMONARY Hx Chronic Obstructive Pulmonary Disease (COPD): Yes - NEUROLOGICAL Hx Neurological Disorder: Yes HX Cerebrovascular Accident: Yes - HEENT Hx HEENT Problems: Yes Hx Cataracts: Yes (BILAT.) - ENDOCRINE/METABOLIC Hx Endocrine Disorders: Yes Hx Diabetes Mellitus Type 2: Yes - HEMATOLOGICAL/ONCOLOGICAL Hx Anemia: Yes - INTEGUMENTARY Hx Dermatological Problems: Yes - MUSCULOSKELETAL/RHEUMATOLOGICAL Hx Arthritis: Yes - GASTROINTESTINAL Hx Gastrointestinal Disorders: Yes - GENITOURINARY/GYNECOLOGICAL Hx Prostate Problems: Yes - PSYCHIATRIC Hx Substance Use: No - SURGICAL HISTORY Hx Coronary Stent: Yes (X1) - ANESTHESIA Hx Anesthesia: Yes Hx Anesthesia Reactions: No Hx Malignant Hyperthermia: No Meds Allergies/Adverse Reactions: Allergies Allergy/AdvReac Type Severity Reaction Status Date / Time No Known Allergies Allergy Verified 06/04/18 06:24 - Medications Medications: Current Medications Acetaminophen (Tylenol 325mg Tab) 650 mg PO Q6 PRN PRN Reason: Pain, moderate (4-7) Last Admin: 08/26/18 12:22 Dose: 650 mg Apixaban (Eliquis) 2.5 mg PO BID [facility] Last Admin: 08/26/18 09:42 Dose: 2.5 mg Aspirin (Ecotrin) 81 mg PO DAILY [facility] Last Admin: 08/26/18 09:42 Dose: 81 mg Carvedilol (Coreg) 3.125 mg PO BID [facility] Last Admin: 08/26/18 09:42 Dose: 3.125 mg Ergocalciferol (Drisdol 50,000 Intl Units Cap) 1 cap PO Q7D [facility] Last Admin: 08/25/18 02:57 Dose: Not Given Furosemide (Lasix) 40 mg PO DAILY [facility] Last Admin: 08/26/18 09:43 Dose: 40 mg Piperacillin Sod/Tazobactam Sod (Zosyn 3.375 Gm Iv Premix) 3.375 gm in 50 mls @ 100 mls/hr IVPB Q8H [facility]; Protocol Last Admin: 08/26/18 13:49 Dose: 100 mls/hr Vancomycin HCl 1 gm/ Sodium (Chloride) 250 mls @ 166.7 mls/hr IVPB Q24H [facility]; Protocol Last Admin: 08/26/18 13:50 Dose: 166.7 mls/hr Insulin Human Regular (Novolin R) 0 unit SC ACHS [facility]; Protocol Last Admin: 08/26/18 12:22 Dose: 4 unit Lactulose (Enulose) 20 gm PO BID [facility] Losartan Potassium (Cozaar) 100 mg PO DAILY [facility] Last Admin: 08/26/18 09:42 Dose: 100 mg Pregabalin (Lyrica) 50 mg PO DAILY [facility] Last Admin: 08/26/18 09:42 Dose: 50 mg Rosuvastatin Calcium (Crestor) 5 mg PO HS [facility] Last Admin: 08/25/18 21:54 Dose: 5 mg Vitamin B Complex/Vit C/Folic Acid (Nephro-Ale) 1 tab PO 0800 [facility] Last Admin: 08/26/18 08:39 Dose: 1 tab Physical Exam - Constitutional Appears: Well, Non-toxic, No Acute Distress - Extremities Exam Additional comments: Dressing is clean, dry and intact, no strike through noted - Neurological Exam Neurological exam: Alert, Oriented x3 - Psychiatric Exam Psychiatric exam: Normal Affect, Normal Mood Results - Vital Signs Recent Vital Signs: Last Vital Signs Temp 98.0 F 08/26/18 08:40 Pulse 87 08/26/18 13:15 Resp 18 08/26/18 08:40 BP 158/70 H 08/26/18 09:43 Pulse Ox 96 08/26/18 12:40 - Labs Result Diagrams: 08/26/18 07:41 08/26/18 07:41 Labs: Laboratory Results - last 24 hr 08/25/18 08/25/18 08/26/18 16:04 20:51 06:35 WBC RBC Hgb Hct MCV MCH MCHC RDW Plt Count MPV Sodium Potassium Chloride Carbon Dioxide Anion Gap BUN Creatinine Est GFR ( Amer) Est GFR (Non-Af Amer) POC Glucose (mg/dL) 246 H 249 H 214 H Random Glucose Calcium TSH 3rd Generation 08/26/18 08/26/18 08/26/18 07:41 07:41 10:58 WBC 11.6 H D RBC 3.54 L Hgb 10.2 L D Hct 31.2 L MCV 88.3 MCH 28.8 MCHC 32.7 L RDW 14.5 Plt Count 237 MPV 8.8 Sodium 134 Potassium 4.6 Chloride 105 Carbon Dioxide 23 Anion Gap 11 BUN 32 H Creatinine 1.8 H Est GFR ( Amer) 45 Est GFR (Non-Af Amer) 37 POC Glucose (mg/dL) 323 H Random Glucose 221 H Calcium 9.2 TSH 3rd Generation 0.96 08/26/18 16:01 WBC RBC Hgb Hct MCV MCH MCHC RDW Plt Count MPV Sodium Potassium Chloride Carbon Dioxide Anion Gap BUN Creatinine Est GFR ( Amer) Est GFR (Non-Af Amer) POC Glucose (mg/dL) 316 H Random Glucose Calcium TSH 3rd Generation Assessment & Plan - Assessment and Plan (Free Text) Assessment: 73 year old male with PMHx of Anemia, Arthritis, Diabetes, HTN, Hypercholester olemia, Hyperlipidemia, Peripheral Edema evaluated for left heel chronic wound Plan: Patient seen and evaluated Plan discussed with Dr. Tariq Afebrile, absent leukocytosis Continue IV abx per ID Dressing to be changed with hydrogen peroxide, ABD, DSD Per Dr. Tariq, no plans for surgical intervention at this time Stable from podiatry standpoint Podiatry will continue to follow while patient in house Thank you for the podiatry consult and allowing to take part in patient care - Date & Time Date: 08/26/18 Time: 16:24
[2018-08-26 16:53] VITALS: RESP 20
--- NOTE | 2018-08-26 21:51 | CON ---
DATE: 08/26/2018 REQUEST OF: Zuleima Jackson MD This is a 73-year-old male, well known to me from prior pedal surgeries and outpatient care for a left heel decubitus. The patient was doing well on my last home visit and subsequently started on a wound VAC. The wound VAC at this moment appears to have helped with the size of the wound; however, there is a significant malodor associated with the present situation. Upon removal of the wound VAC, good granulation tissue was noted. The area was copiously lavaged with peroxide irrigation, and a dry sterile dressing was applied. Appropriate antibiotics are noted to be running. The patient will need IV antibiotics. Monitor sed rates for osteomyelitic component; however, the granulation tissue appears very vital and vibrant and no restrictions for his weightbearing or physical therapy at this time. No surgical intervention is planned. IV antibiotic therapy with local wound management is appropriate. Adrian Zamudio DPM
[2018-08-27] MEDS: Piperacill/Tazo 3.375gm in Dex 3.375 GM/50 ML BAG IVPB SCH ×3 (06:18→21:31)
[2018-08-27] MEDS: (Novolin R) Insulin Human Regular 100 units/ml vial SC SCH ×4 (08:52→21:32)
[2018-08-27] MEDS: Multivitamin Vitamin B Complex (Nephro-Vite) Tab PO SCH (08:52)
--- NOTE | 2018-08-27 10:36 | CP.PCM.PN ---
Subjective - Date & Time of Evaluation Date of Evaluation: 08/27/18 Time of Evaluation: 10:34 - Subjective Subjective: Podiatry Progress note: Dr. Tariq 73 year old male was seen and evaluated at bedside for left heel wound. Patient is AAOx3 and appears in NAD. at bedside at the time of evaluation. Reports that he went for bone scan today. Denies of having any pain today. Denies of any recent F/N/V/C/SOB/CP/headache. No other pedal complains at this time. Objective - Vital Signs/Intake and Output Vital Signs (last 24 hours): Temp Pulse Resp BP Pulse Ox 97.9 F 76 20 154/79 H 95 08/27/18 07:45 08/27/18 07:45 08/27/18 07:45 08/27/18 10:19 08/27/18 07:45 Intake and Output: 08/27/18 08/27/18 06:59 18:59 Intake Total 800 Output Total 1600 Balance -800 - Medications Medications: Current Medications Acetaminophen (Tylenol 325mg Tab) 650 mg PO Q6 PRN PRN Reason: Pain, moderate (4-7) Last Admin: 08/26/18 12:22 Dose: 650 mg Apixaban (Eliquis) 2.5 mg PO BID [facility] Last Admin: 08/27/18 10:19 Dose: 2.5 mg Aspirin (Ecotrin) 81 mg PO DAILY [facility] Last Admin: 08/27/18 10:19 Dose: 81 mg Carvedilol (Coreg) 3.125 mg PO BID [facility] Last Admin: 08/27/18 10:19 Dose: 3.125 mg Ergocalciferol (Drisdol 50,000 Intl Units Cap) 1 cap PO Q7D [facility] Last Admin: 08/25/18 02:57 Dose: Not Given Furosemide (Lasix) 40 mg PO DAILY [facility] Last Admin: 08/27/18 10:19 Dose: 40 mg Piperacillin Sod/Tazobactam Sod (Zosyn 3.375 Gm Iv Premix) 3.375 gm in 50 mls @ 100 mls/hr IVPB Q8H [facility]; Protocol Last Admin: 08/27/18 06:18 Dose: 100 mls/hr Vancomycin HCl 1 gm/ Sodium (Chloride) 250 mls @ 166.7 mls/hr IVPB Q24H [facility]; Protocol Last Admin: 08/26/18 13:50 Dose: 166.7 mls/hr Insulin Human Regular (Novolin R) 0 unit SC ACHS [facility]; Protocol Last Admin: 08/27/18 08:52 Dose: 3 unit Lactulose (Enulose) 20 gm PO BID [facility] Last Admin: 08/27/18 10:18 Dose: 20 gm Losartan Potassium (Cozaar) 100 mg PO DAILY [facility] Last Admin: 08/27/18 10:19 Dose: 100 mg Pregabalin (Lyrica) 50 mg PO DAILY [facility] Last Admin: 08/27/18 10:19 Dose: 50 mg Rosuvastatin Calcium (Crestor) 5 mg PO HS [facility] Last Admin: 08/26/18 22:22 Dose: 5 mg Vitamin B Complex/Vit C/Folic Acid (Nephro-Ale) 1 tab PO 0800 [facility] Last Admin: 08/27/18 08:52 Dose: 1 tab Zolpidem Tartrate (Ambien) 5 mg PO HS PRN PRN Reason: Insomnia - Labs Labs: 08/26/18 07:41 08/26/18 07:41 PT 12.0 SECONDS (9.7-12.2) 08/25/18 00:20 INR 1.1 08/25/18 00:20 APTT 40 SECONDS (21-34) H 08/25/18 00:20 - Constitutional Appears: Well, Non-toxic, No Acute Distress - Extremities Exam Additional comments: Lower extremity focused exam: Vasc: DP/PT pulses fully palpable 2/4 b/l. Skin temperature warm to warm from pr oximal to distal. CFT < 3 seconds to all digits. Minimal edema noted around ulceration site Neuro: Epicritic and protective sensation grossly diminished b/l Derm: Ulceration site noted to plantar heel measuring roughly 3 cm x 2 cm x 0.4 cm, no active drainage, Wound base is mainly granular in nature. no malodor, No tracking, tunneling or undermining appreciated. no probe to bone, No other clinical signs of infection noted MSK: Pain with palpation to ulceration site. 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 Tariq Afebrile, absent leukocytosis Continue IV abx per ID Bone scan final read: Pending Dressing to be changed with hydrogen peroxide, ABD, DSD Per Dr. Tariq, no plans for surgical intervention at this time Stable from podiatry standpoint Podiatry will continue to follow while patient in house
--- NOTE | 2018-08-27 11:25 | RAD ---
Date of service: 08/27/2018 PROCEDURE: Left Foot Radiographs. HISTORY: R/O OM LT HEEL COMPARISON: None. TECHNIQUE: 3 views obtained. FINDINGS: BONES: No fracture or lytic lesion. Hammertoe orientations noted. No periosteal reaction or gross cortical destruction seen. JOINTS: 1st metatarsal-phalangeal joint arthrosis SOFT TISSUES: Diffuse soft tissue swelling-medial subcutaneous phleboliths. No gas-forming cellulitis seen. Atherosclerotic vascular calcifications present. Some soft tissue changes around the heel are noted compatible with a history of skin lesion here OTHER FINDINGS: None. IMPRESSION: No radiographic evidence of osteomyelitis. Other findings as above.
--- NOTE | 2018-08-27 13:37 | NM ---
Date of service: 08/27/2018 PROCEDURE: Three-phase bone Scan HISTORY: LT HEEL R/O OM COMPARISON: August 27, 2018. Left foot radiographs TECHNIQUE: Following administration of 21.9 miCu of Tc MDP three-phase bone scan performed particular attention directed to the left ankle/left calcaneus. FINDINGS: Flow component: Markedly increase flow to what appears to be an edematous left lower extremity from the distal calf through the foot. No focal abnormalities. Blood pool component: Accumulation of radionuclide throughout the visualized left lower extremity. No focal osseous abnormalities. Delayed images at 3:00: Accumulation/retention of radionuclide within an edematous left lower extremity. Other findings: None. IMPRESSION: Findings consistent with cellulitis/lower extremity edema. No evidence of osteomyelitis. Particular attention directed left ankle/left calcaneus.
--- NOTE | 2018-08-27 15:40 | CP.PCM.PN ---
Subjective - Date & Time of Evaluation Date of Evaluation: 08/27/18 Time of Evaluation: 15:40 - Subjective Subjective: AFEBRILE, LYING COMFORTABLY. ON IV ABX Objective - Vital Signs/Intake and Output Vital Signs (last 24 hours): Temp Pulse Resp BP Pulse Ox 97.9 F 76 20 154/79 H 95 08/27/18 07:45 08/27/18 07:45 08/27/18 07:45 08/27/18 10:19 08/27/18 07:45 Intake and Output: 08/27/18 08/27/18 06:59 18:59 Intake Total 800 Output Total 1600 Balance -800 - Medications Medications: Current Medications Acetaminophen (Tylenol 325mg Tab) 650 mg PO Q6 PRN PRN Reason: Pain, moderate (4-7) Last Admin: 08/26/18 12:22 Dose: 650 mg Apixaban (Eliquis) 2.5 mg PO BID [facility] Last Admin: 08/27/18 10:19 Dose: 2.5 mg Aspirin (Ecotrin) 81 mg PO DAILY [facility] Last Admin: 08/27/18 10:19 Dose: 81 mg Carvedilol (Coreg) 3.125 mg PO BID [facility] Last Admin: 08/27/18 10:19 Dose: 3.125 mg Ergocalciferol (Drisdol 50,000 Intl Units Cap) 1 cap PO Q7D [facility] Last Admin: 08/25/18 02:57 Dose: Not Given Furosemide (Lasix) 40 mg PO DAILY [facility] Last Admin: 08/27/18 10:19 Dose: 40 mg Piperacillin Sod/Tazobactam Sod (Zosyn 3.375 Gm Iv Premix) 3.375 gm in 50 mls @ 100 mls/hr IVPB Q8H [facility]; Protocol Last Admin: 08/27/18 13:50 Dose: 100 mls/hr Vancomycin HCl 1 gm/ Sodium (Chloride) 250 mls @ 166.7 mls/hr IVPB Q24H [facility]; Protocol Last Admin: 08/27/18 14:47 Dose: 166.7 mls/hr Insulin Human Regular (Novolin R) 0 unit SC ACHS [facility]; Protocol Last Admin: 08/27/18 13:07 Dose: 5 unit Lactulose (Enulose) 20 gm PO BID [facility] Last Admin: 08/27/18 10:18 Dose: 20 gm Losartan Potassium (Cozaar) 100 mg PO DAILY [facility] Last Admin: 08/27/18 10:19 Dose: 100 mg Pregabalin (Lyrica) 50 mg PO DAILY [facility] Last Admin: 08/27/18 10:19 Dose: 50 mg Rosuvastatin Calcium (Crestor) 5 mg PO HS [facility] Last Admin: 08/26/18 22:22 Dose: 5 mg Vitamin B Complex/Vit C/Folic Acid (Nephro-Ale) 1 tab PO 0800 [facility] Last Admin: 08/27/18 08:52 Dose: 1 tab Zolpidem Tartrate (Ambien) 5 mg PO HS PRN PRN Reason: Insomnia - Labs Labs: 08/26/18 07:41 08/26/18 07:41 PT 12.0 SECONDS (9.7-12.2) 08/25/18 00:20 INR 1.1 08/25/18 00:20 APTT 40 SECONDS (21-34) H 08/25/18 00:20 - Constitutional Appears: No Acute Distress (MORBIDLY OBESE) - Head Exam Head Exam: NORMAL INSPECTION - Eye Exam Eye Exam: EOMI, PERRL - ENT Exam ENT Exam: Normal Oropharynx - Neck Exam Neck Exam: Normal Inspection - Respiratory Exam Respiratory Exam: Decreased Breath Sounds, NORMAL BREATHING PATTERN - Cardiovascular Exam Cardiovascular Exam: REGULAR RHYTHM, +S1, +S2 - GI/Abdominal Exam GI & Abdominal Exam: Soft, Normal Bowel Sounds. absent: Tenderness - Extremities Exam Extremities Exam: Pedal Edema (2+ B/L LE. LT FOOT IN DRESSING). absent: Calf Tenderness - Neurological Exam Neurological Exam: Awake, CN II-XII Intact, Oriented x3. absent: Abnormal Gait - Psychiatric Exam Psychiatric exam: Normal Mood - Skin Skin Exam: Warm Assessment and Plan (1) Diabetic foot ulcer Status: Acute (2) Cellulitis of left lower leg Status: Acute (3) Diabetic neuropathy Status: Acute (4) Renal insufficiency Status: Acute (5) CVA (cerebrovascular accident) Status: Acute - Assessment and Plan (Free Text) Plan: ON iv zOSYN 3.375 EVERY 8 HOURLY 08/25/18. ON iv VANCOMYCIN 1 GM EVERY 24 HOURLY 08/25/18. F/U RENAL FUNCTIONS CLOSELY F/U vANCO TROUGH PRIOR TO THE FOURTH DOSE AND KEEP BETWEEN 10 AND 20MG/L F/U WOUND CULTURE LT FOOT. lOCAL WOUND CARE PER PODIATRY.'
--- NOTE | 2018-08-27 20:22 | PN ---
DATE: 08/26/2018 SUBJECTIVE: The patient is a 73-year-old male. The patient was seen and examined at the bedside on 08/26/2018, looking comfortable, is sitting on the bedside. No fever. No chills. No hematuria or hematochezia. States that he felt weak, lethargic, feverish, but even do not have fever, has pain in the left heel. PHYSICAL EXAMINATION: VITAL SIGNS: Temperature 98, pulse 77, respiratory rate 18, blood pressure 150/70, and pulse oximetry 96%. HEENT: Head normocephalic and atraumatic. Eyes PERRLA. Extraocular muscles are intact. Conjunctivae are clear. Nose is patent. Mucous membranes are moist. NECK: Supple. No carotid bruits, JVD, or thyromegaly. CHEST: Bilaterally symmetrical. HEART: S1 and S2 positive. LUNGS: Clear to auscultation. ABDOMEN: Soft. Bowel sounds are present. No organomegaly. EXTREMITIES: Has dressings. NEUROLOGIC: The patient is awake, alert, follows simple commands. LABORATORY DATA: White blood cell is 11.6, hemoglobin 10.2, hematocrit 31.2, and platelets 237. Sodium 134, potassium 4.6, BUN 32, creatinine 1.6, glucose of 221. ASSESSMENT AND PLAN: Mr. Alber Zambrano is a 73-year-old male with leukocytosis, anemia, renal insufficiency, hyperglycemia, has degenerative joint disease, hypertension, hypercholesteremia, hyperlipidemia, peripheral edema, has left heel ulcer, Podiatry is on the case, obesity, peripheral vascular disease. Seen by Wound team. is on the bedside. Infectious Disease is on the case. Gastrointestinal and deep venous thrombosis prophylaxis. The patient has history of positive methicillin-resistant Staphylococcus aureus, multifocal cardiovascular accidents in the past, morbid obesity, coronary stenting, Repeat labs. We will follow up. Zuleima Jackson MD MTDD
--- NOTE | 2018-08-27 22:10 | PN ---
DATE: 08/27/2018 SUBJECTIVE: The patient was seen and examined at bedside on 08/27/2018, complaining about constipation even with his MiraLax and lactulose. Nothing is working. Even Dulcolax is not working and he is asking for Fleet enema. No fever. No chills. No hematuria. No hematochezia. No headache. No dizziness. No chest pain. No palpitation. PHYSICAL EXAMINATION: VITAL SIGNS: Temperature 97.9, pulse 76, respirations 20, blood pressure 115/71, pulse oximetry 95. HEENT: Head: Normocephalic and atraumatic. Eyes: PERRLA. Extraocular muscles are intact. Conjunctivae clear. Nose patent. Mucous membranes moist. NECK: Supple. No carotid bruit, JVD, or thyromegaly. CHEST: Bilaterally symmetrical. HEART: S1 and S2 positive. LUNGS: Clear to auscultation. ABDOMEN: Soft. Bowel sounds are present. No organomegaly. EXTREMITIES: Has trace edema, has dressing on both. NEUROLOGIC: Awake, alert. Follows simple commands. MEDICATIONS: Tylenol, Eliquis, Ecotrin, carvedilol, vitamin D, Lasix, vancomycin, insulin, lactulose, losartan, vitamin B complex, Zoloft, Ambien. LABORATORY DATA: White blood cells 11.6, hemoglobin 10.2, hematocrit 31.2, platelets 237. Sodium 134, potassium 4.6, BUN 32, creatinine 1.8, and glucose 221. ASSESSMENT AND PLAN: Mr. Jules Campo is a 73-year-old male with anemia, renal insufficiency, uncontrolled diabetes mellitus, has diabetic foot ulcer, psoriasis of the left lower leg, diabetic neuropathy, diabetic retinopathy, diabetic nephropathy, history of cerebrovascular accident, chronic constipation, got a Fleet enema today, back pain, degenerative joint disease, bedridden. Need to go to physical therapy. Bone scan is done, findings consistent with cellulitis of the lower extremity, edema, no evidence for osteomyelitis, particular attention adducted left calcaneus. Continue antibiotics as per Infectious Disease, out of bed, physical therapy. We will follow. Zuleima Jackson MD [facility] # [id number]
[2018-08-28] MEDS: Piperacill/Tazo 3.375gm in Dex 3.375 GM/50 ML BAG IVPB SCH ×3 (05:17→21:19)
[2018-08-28] MEDS: Multivitamin Vitamin B Complex (Nephro-Vite) Tab PO SCH (08:16)
[2018-08-28] MEDS: (Novolin R) Insulin Human Regular 100 units/ml vial SC SCH ×4 (08:16→21:20)
--- NOTE | 2018-08-28 11:48 | CP.PCM.PN ---
Subjective - Date & Time of Evaluation Date of Evaluation: 08/28/18 Time of Evaluation: 11:46 - Subjective Subjective: Podiatry Progress note: Dr. Tarqi 73 year old male was seen and evaluated at bedside for left heel wound. Patient is AAOx3 and appears in NAD. at bedside at the time of evaluation. Denies of having any pain today. Denies of any recent F/N/V/C/SOB/CP/headache. No other pedal complains at this time. Objective - Vital Signs/Intake and Output Vital Signs (last 24 hours): Temp Pulse Resp BP Pulse Ox 97.9 F 86 20 157/91 H 95 08/28/18 08:13 08/28/18 08:13 08/28/18 08:13 08/28/18 09:44 08/28/18 08:13 Intake and Output: 08/28/18 08/28/18 06:59 18:59 Output Total 725 Balance -725 - Medications Medications: Current Medications Acetaminophen (Tylenol 325mg Tab) 650 mg PO Q6 PRN PRN Reason: Pain, moderate (4-7) Last Admin: 08/26/18 12:22 Dose: 650 mg Apixaban (Eliquis) 2.5 mg PO BID [facility] Last Admin: 08/28/18 09:44 Dose: 2.5 mg Aspirin (Ecotrin) 81 mg PO DAILY [facility] Last Admin: 08/28/18 09:44 Dose: 81 mg Carvedilol (Coreg) 3.125 mg PO BID [facility] Last Admin: 08/28/18 09:45 Dose: 3.125 mg Ergocalciferol (Drisdol 50,000 Intl Units Cap) 1 cap PO Q7D [facility] Last Admin: 08/25/18 02:57 Dose: Not Given Furosemide (Lasix) 40 mg PO DAILY [facility] Last Admin: 08/28/18 09:44 Dose: 40 mg Piperacillin Sod/Tazobactam Sod (Zosyn 3.375 Gm Iv Premix) 3.375 gm in 50 mls @ 100 mls/hr IVPB Q8H [facility]; Protocol Last Admin: 08/28/18 05:17 Dose: 100 mls/hr Vancomycin HCl 1 gm/ Sodium (Chloride) 250 mls @ 166.7 mls/hr IVPB Q24H [facility]; Protocol Last Admin: 08/27/18 14:47 Dose: 166.7 mls/hr Insulin Human Regular (Novolin R) 0 unit SC ACHS [facility]; Protocol Last Admin: 08/28/18 08:16 Dose: 4 unit Lactulose (Enulose) 20 gm PO BID [facility] Last Admin: 08/28/18 09:45 Dose: 20 gm Losartan Potassium (Cozaar) 100 mg PO DAILY [facility] Last Admin: 08/28/18 09:44 Dose: 100 mg Pregabalin (Lyrica) 50 mg PO DAILY [facility] Last Admin: 08/28/18 09:44 Dose: 50 mg Rosuvastatin Calcium (Crestor) 5 mg PO HS [facility] Last Admin: 08/27/18 21:42 Dose: 5 mg Vitamin B Complex/Vit C/Folic Acid (Nephro-Ale) 1 tab PO 0800 [facility] Last Admin: 08/28/18 08:16 Dose: 1 tab Zolpidem Tartrate (Ambien) 5 mg PO HS PRN PRN Reason: Insomnia - Labs Labs: 08/26/18 07:41 08/26/18 07:41 PT 12.0 SECONDS (9.7-12.2) 08/25/18 00:20 INR 1.1 08/25/18 00:20 APTT 40 SECONDS (21-34) H 08/25/18 00:20 - Constitutional Appears: Well, Non-toxic, No Acute Distress - Extremities Exam Additional comments: Lower extremity focused exam: Vasc: DP/PT pulses fully palpable 2/4 b/l. Skin temperature warm to warm from proximal to distal. CFT < 3 seconds to all digits. Minimal edema noted around ulceration site Neuro: Epicritic and protective sensation grossly diminished b/l Derm: Ulceration site noted to plantar heel measuring roughly 3 cm x 2 cm x 0.4 cm, no active drainage, Wound base is mainly granular in nature. no malodor, No tracking, tunneling or undermining appreciated. no probe to bone, No other clinical signs of infection noted MSK: Pain with palpation to ulceration site. 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 Tariq Afebrile, absent leukocytosis Wound culture: Pending Continue IV abx per ID Bone scan: No evidence of OM Dressing to be changed with hydrogen peroxide, ABD, DSD Per Dr. Tariq, no plans for surgical intervention at this time Stable from podiatry standpoint Podiatry will continue to follow while patient in house
[2018-08-28 14:10] LABS: HEMOGLOBIN 10.4 g/dL (12.0-18.0); MEAN CELL VOLUME 88.3 fL (80.0-94.0); MEAN CORPUSCULAR HEMOGLOBIN 29.6 pg (27.0-31.0); MEAN CORPUSCULAR HGB CONC 33.5 g/dL (33.0-37.0); MEAN PLATELET VOLUME 8.9 fL (7.2-11.7); RBC 3.52 Mil/uL (4.40-5.90); RED CELL DISTRIBUTION WIDTH 14.4 % (11.5-14.5); WHITE BLOOD COUNT 9.9 K/uL (4.8-10.8)
[2018-08-28 14:28] LABS: CALCIUM 9.2 mg/dl (8.6-10.4)
--- NOTE | 2018-08-29 02:15 | PN ---
DATE: 08/28/2018 SUBJECTIVE: The patient is a 73-year-old male. The patient was seen and examined at the bedside on 08/28/2018. The patient is looking comfortable. According to him and his , he is not sleeping well with Ambien 5 mg because he is a big man, he wants 10 mg, and secondly, he has problem with bowel movement. He is on stool softener, but not working yesterday. He has one dose of fleet enema, with that, he did little bit stool. We will do evaluation of his stool softeners. No fever. No chills. No hematuria or hematochezia. No headache or dizziness. No chest pain or palpitations. PHYSICAL EXAMINATION: VITAL SIGNS: Temperature 97.9, pulse 86, respiratory rate 20, blood pressure 157/91, pulse oximetry 95. HEENT: Head is normocephalic and atraumatic. Eyes PERRLA. Extraocular muscles intact. Conjunctivae clear. Nose patent. Mucous membranes moist. NECK: Supple. No carotid bruits, JVD, or thyromegaly. CHEST: Bilaterally symmetric. HEART: S1 and S2 positive. LUNGS: Clear to auscultation. ABDOMEN: Soft. Bowel sounds present. No organomegaly. EXTREMITIES: No edema. No cyanosis. NEUROLOGIC: The patient is awake and alert, moving all four extremities. No focal deficits. MEDICATIONS: Tylenol, Eliquis, Ecotrin, Coreg, vitamin D, Lasix, Zosyn, vancomycin, insulin, Cozaar, Lyrica, Crestor. LABORATORY DATA: White blood cell 11.6, hemoglobin 10.2, hematocrit 31.2, and platelets 237. Sodium 135, potassium 4.6, BUN 32, creatinine 1.8, glucose 221. ASSESSMENT AND PLAN: Mr. Jules Campo is 73-year-old male with renal insufficiency, diabetes mellitus, not controlled well, leukocytosis, anemia, had insomnia, increased his Ambien from 5 to 10 mg, has left heel chronic wound. Podiatry is on the case. Seen by Infectious Disease, Dr. Berlin Guerrero. Bone scan done. Diabetic foot ulcer of the left lower leg, diabetic retinopathy, diabetic nephropathy, uncontrolled diabetes, history of cerebrovascular accident. The patient is Zosyn and vancomycin. Renal function monitored closely. Bone scan shows findings consist of cellulitis of the lower extremity edema. No evidence of osteomyelitis, fluid retention directly the left ankle and left calcaneus. Discussion done with the . Repeat labs. We will follow. Zuleima Jackson MD [facility]
[2018-08-29] MEDS: Piperacill/Tazo 3.375gm in Dex 3.375 GM/50 ML BAG IVPB SCH ×3 (05:58→21:10)
[2018-08-29] MEDS: (Novolin R) Insulin Human Regular 100 units/ml vial SC SCH ×4 (08:22→21:11)
[2018-08-29] MEDS: Multivitamin Vitamin B Complex (Nephro-Vite) Tab PO SCH (08:23)
--- NOTE | 2018-08-29 12:27 | CP.PCM.CON ---
<Dereck Clarke - Last Filed: 08/29/18 15:27> History of Present Illness - History of Present Illness History of Present Illness: Gi Fellow PGY4, consult note. 73 year old male with PMH of Prostate Cancer s/p TURP 2015, CVA, CAD s/p PCI 2016, DM w/ neuropathy, PAD complicated by right hallux osteomyelitis with partial amputation (02/2017), HTN, HLD, and chronic constipation presenting with weakness, fever. Patient was found to have lower extremity cellulitis. He was treated with IV abx and worked up for osteomylelitis which was negative. Patient notes chronic bilateral lower abdominal pain and incomplete evacuation of small, hard bowel movements every 2-3 days despite Lactulose twice a day. Associated bloating and fear of eating. He is requesting an enema. Denies nausea, vomiting, hematemesis, heartburn, acid reflux, diarrhea, melena, hematochezia, or unintentional weight loss. He notes issues with constipation for over 10 years and has tried multiple OTC laxatives without improvement. Prior colonoscopy six years ago at [facility] endorsed to be normal. No prior EGD. Family History- denies stomach cancer, colon cancer Social History- denies tobacco, alcohol, illicit drug use Surgical History- PCI 2017, right femoral artery catheterization and atherectomy right peroneal artery with angioplasty, right hallux partial amputation, TURP 2015 12pt ROS completed and negative except for above. Past Patient History - Infectious Disease Hx of Infectious Diseases: None - Past Medical History & Family History Past Medical History?: Yes - Past Social History Smoking Status: Never Smoked - CARDIAC Hx Hypercholesterolemia: Yes Hx Hypertension: Yes Hx Pacemaker: No Hx Peripheral Edema: Yes - NEUROLOGICAL Hx Neurological Disorder: Yes HX Cerebrovascular Accident: Yes - HEENT Hx HEENT Problems: Yes Hx Cataracts: Yes (BILAT.) - ENDOCRINE/METABOLIC Hx Endocrine Disorders: Yes Hx Diabetes Mellitus Type 2: Yes - HEMATOLOGICAL/ONCOLOGICAL Hx Anemia: Yes - INTEGUMENTARY Hx Dermatological Problems: Yes - MUSCULOSKELETAL/RHEUMATOLOGICAL Hx Arthritis: Yes - GASTROINTESTINAL Hx Gastrointestinal Disorders: Yes - GENITOURINARY/GYNECOLOGICAL Hx Prostate Problems: Yes - PSYCHIATRIC Hx Substance Use: No - SURGICAL HISTORY Hx Coronary Stent: Yes (X1) - ANESTHESIA Hx Anesthesia: Yes Hx Anesthesia Reactions: No Hx Malignant Hyperthermia: No Meds Allergies/Adverse Reactions: Allergies Allergy/AdvReac Type Severity Reaction Status Date / Time No Known Allergies Allergy Verified 06/04/18 06:24 - Medications Medications: Current Medications Acetaminophen (Tylenol 325mg Tab) 650 mg PO Q6 PRN PRN Reason: Pain, moderate (4-7) Last Admin: 08/26/18 12:22 Dose: 650 mg Apixaban (Eliquis) 2.5 mg PO BID [facility] Last Admin: 08/29/18 09:06 Dose: 2.5 mg Aspirin (Ecotrin) 81 mg PO DAILY [facility] Last Admin: 08/29/18 09:11 Dose: 81 mg Carvedilol (Coreg) 3.125 mg PO BID [facility] Last Admin: 08/29/18 09:06 Dose: 3.125 mg Ergocalciferol (Drisdol 50,000 Intl Units Cap) 1 cap PO Q7D [facility] Last Admin: 08/25/18 02:57 Dose: Not Given Furosemide (Lasix) 40 mg PO DAILY [facility] Last Admin: 08/29/18 09:07 Dose: 40 mg Piperacillin Sod/Tazobactam Sod (Zosyn 3.375 Gm Iv Premix) 3.375 gm in 50 mls @ 100 mls/hr IVPB Q8H [facility]; Protocol Last Admin: 08/29/18 05:58 Dose: 100 mls/hr Vancomycin HCl 1 gm/ Sodium (Chloride) 250 mls @ 166.7 mls/hr IVPB Q24H [facility]; Protocol Last Admin: 08/28/18 13:59 Dose: 166.7 mls/hr Insulin Human Regular (Novolin R) 0 unit SC ACHS [facility]; Protocol Last Admin: 08/29/18 11:39 Dose: 6 unit Lactulose (Enulose) 20 gm PO BID [facility] Last Admin: 08/29/18 09:05 Dose: 20 gm Losartan Potassium (Cozaar) 100 mg PO DAILY [facility] Last Admin: 08/29/18 09:06 Dose: 100 mg Pregabalin (Lyrica) 50 mg PO DAILY [facility] Last Admin: 08/29/18 09:06 Dose: 50 mg Rosuvastatin Calcium (Crestor) 5 mg PO HS [facility] Last Admin: 08/28/18 21:20 Dose: 5 mg Sodium Phosphate (Fleet Enema) 135 ml [place] ONCE PRN PRN Reason: Constipation Vitamin B Complex/Vit C/Folic Acid (Nephro-Ale) 1 tab PO 0800 [facility] Last Admin: 08/29/18 08:23 Dose: 1 tab Zolpidem Tartrate (Ambien) 5 mg PO HS PRN PRN Reason: Insomnia Last Admin: 08/28/18 22:34 Dose: 5 mg Physical Exam - Constitutional Appears: Non-toxic, No Acute Distress, Chronically Ill - Head Exam Head Exam: ATRAUMATIC, NORMAL INSPECTION - Eye Exam Eye Exam: EOMI, Normal appearance - Respiratory Exam Respiratory Exam: Clear to Auscultation Bilateral, NORMAL BREATHING PATTERN - Cardiovascular Exam Cardiovascular Exam: REGULAR RHYTHM, +S1, +S2 - GI/Abdominal Exam GI & Abdominal Exam: Hypoactive Bowel Sounds, Soft. absent: Organomegaly, Tenderness - Extremities Exam Extremities exam: Positive for: pedal edema. Negative for: normal inspection - Neurological Exam Neurological exam: Alert, CN II-XII Intact, Oriented x3 - Psychiatric Exam Psychiatric exam: Normal Affect, Normal Mood - Skin Skin Exam: Normal Color, Warm Results - Vital Signs Recent Vital Signs: Last Vital Signs Temp 98 F 08/29/18 08:00 Pulse 81 08/29/18 08:00 Resp 20 08/29/18 08:00 BP 180/87 H 08/29/18 09:07 Pulse Ox 99 08/29/18 08:00 - Labs Result Diagrams: 08/28/18 13:58 08/28/18 13:58 Labs: Laboratory Results - last 24 hr 08/28/18 08/28/18 08/28/18 13:58 13:58 15:51 WBC 9.9 RBC 3.52 L Hgb 10.4 L Hct 31.1 L MCV 88.3 MCH 29.6 MCHC 33.5 RDW 14.4 Plt Count 287 MPV 8.9 Sodium 134 Potassium 4.6 Chloride 100 Carbon Dioxide 25 Anion Gap 14 BUN 29 H Creatinine 2.0 H Est GFR ( Amer) 40 Est GFR (Non-Af Amer) 33 POC Glucose (mg/dL) 332 H Random Glucose 389 H D Calcium 9.2 08/28/18 08/29/18 08/29/18 21:01 00:01 02:10 WBC RBC Hgb Hct MCV MCH MCHC RDW Plt Count MPV Sodium Potassium Chloride Carbon Dioxide Anion Gap BUN Creatinine Est GFR ( Amer) Est GFR (Non-Af Amer) POC Glucose (mg/dL) 416 H* 400 H* 363 H Random Glucose Calcium 08/29/18 08/29/18 06:55 11:03 WBC RBC Hgb Hct MCV MCH MCHC RDW Plt Count MPV Sodium Potassium Chloride Carbon Dioxide Anion Gap BUN Creatinine Est GFR ( Amer) Est GFR (Non-Af Amer) POC Glucose (mg/dL) 361 H 474 H* Random Glucose Calcium Assessment & Plan - Assessment and Plan (Free Text) Assessment: #Chronic constipation #Lower extremity cellulitis #T2DM, uncontrolled #CAD s/p PCI #PVD #Prostate CA s/p TURP PLAN: -Constipation is chronic and likely made worse by poor hydration, uncontrolled DM, polypharmacy -Continue lactulose BID -Agree with enema as needed -Recommend dulcolax -Goal blood sugar less than 200. -Diabetic, heart healthy, high fiber diet. Case discussed with Dr. Ashby, see attestation. - Date & Time Date: 08/29/18 Time: 12:28 <Edward Ashby - Last Filed: 08/29/18 18:38> Meds - Medications Medications: Current Medications Acetaminophen (Tylenol 325mg Tab) 650 mg PO Q6 PRN PRN Reason: Pain, moderate (4-7) Last Admin: 08/26/18 12:22 Dose: 650 mg Apixaban (Eliquis) 2.5 mg PO BID [facility] Last Admin: 08/29/18 17:04 Dose: 2.5 mg Aspirin (Ecotrin) 81 mg PO DAILY [facility] Last Admin: 08/29/18 09:11 Dose: 81 mg Carvedilol (Coreg) 3.125 mg PO BID [facility] Last Admin: 08/29/18 17:04 Dose: 3.125 mg Ergocalciferol (Drisdol 50,000 Intl Units Cap) 1 cap PO Q7D [facility] Last Admin: 08/25/18 02:57 Dose: Not Given Furosemide (Lasix) 40 mg PO DAILY [facility] Last Admin: 08/29/18 09:07 Dose: 40 mg Piperacillin Sod/Tazobactam Sod (Zosyn 3.375 Gm Iv Premix) 3.375 gm in 50 mls @ 100 mls/hr IVPB Q8H [facility]; Protocol Last Admin: 08/29/18 12:30 Dose: 100 mls/hr Vancomycin HCl 1 gm/ Sodium (Chloride) 250 mls @ 166.7 mls/hr IVPB Q24H [facility]; Protocol Last Admin: 08/29/18 15:20 Dose: 166.7 mls/hr Insulin Human Regular (Novolin R) 0 unit SC ACHS [facility]; Protocol Last Admin: 08/29/18 17:03 Dose: 10 units Lactulose (Enulose) 20 gm PO BID [facility] Last Admin: 08/29/18 17:04 Dose: 20 gm Losartan Potassium (Cozaar) 100 mg PO DAILY [facility] Last Admin: 08/29/18 09:06 Dose: 100 mg Polyethylene Glycol (Miralax) 17 gm PO BID [facility] Last Admin: 08/29/18 17:04 Dose: 17 gm Pregabalin (Lyrica) 50 mg PO DAILY [facility] Last Admin: 08/29/18 09:06 Dose: 50 mg Rosuvastatin Calcium (Crestor) 5 mg PO HS [facility] Last Admin: 08/28/18 21:20 Dose: 5 mg Sodium Phosphate (Fleet Enema) 135 ml [place] ONCE PRN PRN Reason: Constipation Last Admin: 08/29/18 13:07 Dose: 135 ml Vitamin B Complex/Vit C/Folic Acid (Nephro-Ale) 1 tab PO 0800 [facility] Last Admin: 08/29/18 08:23 Dose: 1 tab Zolpidem Tartrate (Ambien) 5 mg PO HS PRN PRN Reason: Insomnia Last Admin: 08/28/18 22:34 Dose: 5 mg Results - Vital Signs Recent Vital Signs: Last Vital Signs Temp 97.6 F 08/29/18 15:00 Pulse 78 08/29/18 15:00 Resp 20 08/29/18 15:00 BP 181/90 H 08/29/18 15:00 Pulse Ox 96 08/29/18 15:00 - Labs Result Diagrams: 08/28/18 13:58 08/28/18 13:58 Labs: Laboratory Results - last 24 hr 08/28/18 08/29/18 08/29/18 21:01 00:01 02:10 POC Glucose (mg/dL) 416 H* 400 H* 363 H Vancomycin Trough 08/29/18 08/29/18 08/29/18 06:55 11:03 14:18 POC Glucose (mg/dL) 361 H 474 H* Vancomycin Trough 7.8 08/29/18 16:07 POC Glucose (mg/dL) 415 H* Vancomycin Trough Attending/Attestation - Attestation I have personally seen and examined this patient.: Yes I have fully participated in the care of the patient.: Yes I have reviewed all pertinent clinical information: Yes Notes (Text): 08/29/18 18:33 I have seen and examined patient with GI fellow. Agree with above documentation with the following additions. In brief, this is a 73 year old male with history of CAD s/p stent, prostate cancer s/p TURP, DM, HTN, PVD, chronic constipation who presents to hospital for management of lower extremity cellulitis. GI pruitt d for evaluation of worsening constipation. He notes persistent constipation, typically has a bowel movement every 2-3 days despite use of lactulose. He also reports associated bilateral lower quadrant abdominal pain but denies nausea, vomiting, fever/chills, weight loss, rectal bleeding, or change in bowel habits. He admits to poor dietary habits and lack of water intake. He reports having a colonoscopy at [facility] 6 years ago which was normal as per patient. CAD s/p stent Prostate cancer s/p TURP DM - uncontrolled HTN PVD Chronic constipation, abdominal pain Cellulitis - High fiber, diabetic diet as tolerated - Continue with antibiotic therapy as per medical team - Patient received enema today followed by large bowel movement as per nursing staff - Encourage increased PO water and fiber intake to prevent recurrent constipation - Would suggest twice daily miralax rather than lactulose for management of chronic symptoms, may also use enema PRN for symptomatic relief - Obtain prior colonoscopy reports - No further planned GI intervention at this time, will sign off case. Please reconsult as necessary, thank you.
[2018-08-29] MEDS ORDERED: Bisacodyl 5mg EC Tab PO ONE (12:39)
--- NOTE | 2018-08-29 13:55 | CP.PCM.PN ---
Subjective - Date & Time of Evaluation Date of Evaluation: 08/29/18 Time of Evaluation: 13:54 - Subjective Subjective: Podiatry Progress note: Dr. Tariq 73 year old male was seen and evaluated at bedside for left heel wound. Patient is AAOx3 and appears in NAD. Denies of having any pain today. Denies of any recent F/N/V/C/SOB/CP/headache. Reports that he feels a little constipated. No other pedal complains at this time. Objective - Vital Signs/Intake and Output Vital Signs (last 24 hours): Temp Pulse Resp BP Pulse Ox 98 F 81 20 180/87 H 99 08/29/18 08:00 08/29/18 08:00 08/29/18 08:00 08/29/18 09:07 08/29/18 08:00 Intake and Output: 08/29/18 08/29/18 06:59 18:59 Intake Total 640 Output Total 1000 Balance -360 - Medications Medications: Current Medications Acetaminophen (Tylenol 325mg Tab) 650 mg PO Q6 PRN PRN Reason: Pain, moderate (4-7) Last Admin: 08/26/18 12:22 Dose: 650 mg Apixaban (Eliquis) 2.5 mg PO BID [facility] Last Admin: 08/29/18 09:06 Dose: 2.5 mg Aspirin (Ecotrin) 81 mg PO DAILY [facility] Last Admin: 08/29/18 09:11 Dose: 81 mg Carvedilol (Coreg) 3.125 mg PO BID [facility] Last Admin: 08/29/18 09:06 Dose: 3.125 mg Ergocalciferol (Drisdol 50,000 Intl Units Cap) 1 cap PO Q7D [facility] Last Admin: 08/25/18 02:57 Dose: Not Given Furosemide (Lasix) 40 mg PO DAILY [facility] Last Admin: 08/29/18 09:07 Dose: 40 mg Piperacillin Sod/Tazobactam Sod (Zosyn 3.375 Gm Iv Premix) 3.375 gm in 50 mls @ 100 mls/hr IVPB Q8H [facility]; Protocol Last Admin: 08/29/18 12:30 Dose: 100 mls/hr Vancomycin HCl 1 gm/ Sodium (Chloride) 250 mls @ 166.7 mls/hr IVPB Q24H [facility]; P rotocol Last Admin: 08/28/18 13:59 Dose: 166.7 mls/hr Insulin Human Regular (Novolin R) 0 unit SC ACHS [facility]; Protocol Last Admin: 08/29/18 11:39 Dose: 6 unit Lactulose (Enulose) 20 gm PO BID [facility] Last Admin: 08/29/18 09:05 Dose: 20 gm Losartan Potassium (Cozaar) 100 mg PO DAILY [facility] Last Admin: 08/29/18 09:06 Dose: 100 mg Pregabalin (Lyrica) 50 mg PO DAILY [facility] Last Admin: 08/29/18 09:06 Dose: 50 mg Rosuvastatin Calcium (Crestor) 5 mg PO HS [facility] Last Admin: 08/28/18 21:20 Dose: 5 mg Sodium Phosphate (Fleet Enema) 135 ml [place] ONCE PRN PRN Reason: Constipation Last Admin: 08/29/18 13:07 Dose: 135 ml Vitamin B Complex/Vit C/Folic Acid (Nephro-Ale) 1 tab PO 0800 [facility] Last Admin: 08/29/18 08:23 Dose: 1 tab Zolpidem Tartrate (Ambien) 5 mg PO HS PRN PRN Reason: Insomnia Last Admin: 08/28/18 22:34 Dose: 5 mg - Labs Labs: 08/28/18 13:58 08/28/18 13:58 PT 12.0 SECONDS (9.7-12.2) 08/25/18 00:20 INR 1.1 08/25/18 00:20 APTT 40 SECONDS (21-34) H 08/25/18 00:20 - Constitutional Appears: Well, Non-toxic, No Acute Distress - Extremities Exam Extremities Exam: Normal Inspection Additional comments: Lower extremity focused exam: Vasc: DP/PT pulses fully palpable 2/4 b/l. Skin temperature warm to warm from proximal to distal. CFT < 3 seconds to all digits. Minimal edema noted around ulceration site Neuro: Epicritic and protective sensation grossly diminished b/l Derm: Ulceration site noted to plantar heel measuring roughly 3 cm x 2 cm x 0.4 cm, no active drainage, Wound base is mainly granular in nature. no malodor, No tracking, tunneling or undermining appreciated. no probe to bone, No other clinical signs of infection noted MSK: Pain with palpation to ulceration site. 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 Tariq Afebrile, absent leukocytosis Wound culture: Pending Continue IV abx per ID Bone scan: No evidence of OM Dressing to be changed with hydrogen peroxide, ABD, DSD Per Dr. Tariq, no plans for surgical intervention at this time Stable from podiatry standpoint Podiatry will continue to follow while patient in house
[2018-08-29] MEDS: POLYETHYLENE GLYCOL 3350 17 GM/Dose PACKET PO SCH (17:04)
--- NOTE | 2018-08-29 23:12 | CP.PCM.PN ---
Subjective - Date & Time of Evaluation Date of Evaluation: 08/29/18 Time of Evaluation: 23:12 - Subjective Subjective: AFEBRILE, LYING COMFORTABLY. ON IV ABX WOUND CULTURE LEFT HEEL DONE TODAY 08/29/18 LABS; THREE-PHASE BONE SCAN +VE CELLULITIS, NO OSTEOMYELITIS. REVIEWED CREAT 2. Objective - Vital Signs/Intake and Output Vital Signs (last 24 hours): Temp Pulse Resp BP Pulse Ox 97.6 F 84 20 144/80 96 08/29/18 15:00 08/29/18 20:22 08/29/18 15:00 08/29/18 20:22 08/29/18 15:00 Intake and Output: 08/29/18 08/30/18 18:59 06:59 Intake Total 530 350 Output Total 600 750 Balance -70 -400 - Medications Medications: Current Medications Acetaminophen (Tylenol 325mg Tab) 650 mg PO Q6 PRN PRN Reason: Pain, moderate (4-7) Last Admin: 08/26/18 12:22 Dose: 650 mg Apixaban (Eliquis) 2.5 mg PO BID [facility] Last Admin: 08/29/18 17:04 Dose: 2.5 mg Aspirin (Ecotrin) 81 mg PO DAILY [facility] Last Admin: 08/29/18 09:11 Dose: 81 mg Carvedilol (Coreg) 3.125 mg PO BID [facility] Last Admin: 08/29/18 17:04 Dose: 3.125 mg Ergocalciferol (Drisdol 50,000 Intl Units Cap) 1 cap PO Q7D [facility] Last Admin: 08/25/18 02:57 Dose: Not Given Furosemide (Lasix) 40 mg PO DAILY [facility] Last Admin: 08/29/18 09:07 Dose: 40 mg Piperacillin Sod/Tazobactam Sod (Zosyn 3.375 Gm Iv Premix) 3.375 gm in 50 mls @ 100 mls/hr IVPB Q8H [facility]; Protocol Last Admin: 08/29/18 21:10 Dose: 100 mls/hr Vancomycin HCl 1 gm/ Sodium (Chloride) 250 mls @ 166.7 mls/hr IVPB Q24H [facility]; Protocol Last Admin: 08/29/18 15:20 Dose: 166.7 mls/hr Insulin Human Regular (Novolin R) 0 unit SC ACHS [facility]; Protocol Last Admin: 08/29/18 21:11 Dose: 3 units Losartan Potassium (Cozaar) 100 mg PO DAILY [facility] Last Admin: 08/29/18 09:06 Dose: 100 mg Polyethylene Glycol (Miralax) 17 gm PO BID [facility] Last Admin: 08/29/18 17:04 Dose: 17 gm Pregabalin (Lyrica) 50 mg PO DAILY [facility] Last Admin: 08/29/18 09:06 Dose: 50 mg Rosuvastatin Calcium (Crestor) 5 mg PO HS [facility] Last Admin: 08/29/18 21:10 Dose: 5 mg Sodium Phosphate (Fleet Enema) 135 ml [place] ONCE PRN PRN Reason: Constipation Last Admin: 08/29/18 13:07 Dose: 135 ml Vitamin B Complex/Vit C/Folic Acid (Nephro-Ale) 1 tab PO 0800 [facility] Last Admin: 08/29/18 08:23 Dose: 1 tab Zolpidem Tartrate (Ambien) 5 mg PO HS PRN PRN Reason: Insomnia Last Admin: 08/28/18 22:34 Dose: 5 mg - Labs Labs: 08/28/18 13:58 08/28/18 13:58 PT 12.0 SECONDS (9.7-12.2) 08/25/18 00:20 INR 1.1 08/25/18 00:20 APTT 40 SECONDS (21-34) H 08/25/18 00:20 - Constitutional Appears: No Acute Distress - Head Exam Head Exam: NORMAL INSPECTION - Eye Exam Eye Exam: EOMI, PERRL - ENT Exam ENT Exam: Normal Oropharynx - Neck Exam Neck Exam: Normal Inspection - Respiratory Exam Respiratory Exam: Clear to Ausculation Bilateral, NORMAL BREATHING PATTERN - Cardiovascular Exam Cardiovascular Exam: REGULAR RHYTHM, +S1, +S2 - GI/Abdominal Exam GI & Abdominal Exam: Soft, Normal Bowel Sounds. absent: Organomegaly - Extremities Exam Extremities Exam: Pedal Edema (bilateral lower extremities. left foot and heel in dressing.). absent: Calf Tenderness - Neurological Exam Neurological Exam: Awake, CN II-XII Intact, Oriented x3 - Psychiatric Exam Psychiatric exam: Normal Mood - Skin Skin Exam: Warm Assessment and Plan (1) Diabetic foot ulcer Status: Acute (2) Cellulitis of left lower leg Status: Acute (3) Diabetic neuropathy Status: Acute (4) Renal insufficiency Status: Acute (5) CVA (cerebrovascular accident) Status: Acute - Assessment and Plan (Free Text) Plan: ON iv zOSYN 3.375 EVERY 8 HOURLY 08/25/18. ON iv VANCOMYCIN 1 GM EVERY 24 HOURLY 08/25/18. F/U RENAL FUNCTIONS CLOSELY F/U vANCO TROUGH PRIOR TO THE FOURTH DOSE AND KEEP BETWEEN 10 AND 20MG/L F/U WOUND CULTURE LT FOOT. lOCAL WOUND CARE PER PODIATRY.'
--- NOTE | 2018-08-30 02:42 | PN ---
DATE: 08/29/2018 SUBJECTIVE: The patient is a 73-year-old male. The patient is seen and examined at bedside. is sitting at the bedside also. Complaining about night sleep, bowel movement. Even he is having stool softener, but as per the patient still he is not having good bowel movement. No headache. No dizziness. No chest pain. No palpitations. PHYSICAL EXAMINATION: VITAL SIGNS: Temperature 98.6, pulse 81, respiratory rate 20, blood pressure 180/87, pulse oximetry 99%. HEENT: Head is normocephalic and atraumatic. Eyes PERRLA. Extraocular muscles intact. Conjunctivae clear. Nose patent. NECK: Supple. No carotid bruits. No JVD or thyromegaly. CHEST: Bilaterally symmetrical. HEART: S1 and S2 positive. LUNGS: Clear to auscultation. ABDOMEN: Soft. Bowel sounds present. No organomegaly. EXTREMITIES: No edema. No cyanosis. NEUROLOGIC: The patient is awake and alert. Moving all four extremities. No focal deficits. LABORATORY DATA: White blood cells 9.9, hemoglobin 10.4, hematocrit 31.1, platelets 207. Sodium 135, potassium 4.6, BUN 29, creatinine 2, and glucose 389. ASSESSMENT AND PLAN: Mr. Jules Campo is a 73-year-old male with anemia, renal insufficiency, hyperglycemia, history of coronary artery disease with cardiac stenting, prostate cancer with transurethral resection of the prostate, history of uncontrolled diabetes mellitus, hypertension, peripheral vascular disease, chronic constipation, abdominal pain, cellulitis of the lower extremity. Gastroenterology consult suggested high-fiber diet, diabetic diet as tolerated. Continue antibiotic as per Infectious Disease. The patient got Fleet enema , HAD bowel movement as per the nursing staff. Encourage increased oral water intake and fiber intake. Prevent current constipation. We will suggest twice a day MiraLax rather than lactulose for chronic constipation. May actually use enema as needed for symptomatic relief. Bring prior colonoscopy report. Gastrointestinal and deep venous thrombosis prophylaxis. Repeat labs. We will follow up. Zuleima Jackson MD [facility]
[2018-08-30] MEDS: Piperacill/Tazo 3.375gm in Dex 3.375 GM/50 ML BAG IVPB SCH ×2 (05:14→13:07)
[2018-08-30 08:32] VITALS: O2SAT 98
[2018-08-30] MEDS: (Novolin R) Insulin Human Regular 100 units/ml vial SC SCH ×3 (08:40→17:17)
[2018-08-30] MEDS: Multivitamin Vitamin B Complex (Nephro-Vite) Tab PO SCH (08:42)
[2018-08-30] MEDS: POLYETHYLENE GLYCOL 3350 17 GM/Dose PACKET PO SCH (09:12)
--- NOTE | 2018-08-30 14:28 | CP.PCM.PN ---
Subjective - Date & Time of Evaluation Date of Evaluation: 08/30/18 Time of Evaluation: 14:26 - Subjective Subjective: Podiatry Progress note: Dr. Tariq 73 year old male was seen and evaluated at bedside for left heel wound. Patient is AAOx3 and appears in NAD. at bedside at the time of evaluation. Denies of having any pain today. Denies of any recent F/N/V/C/SOB/CP/headache. No other pedal complains at this time. Objective - Vital Signs/Intake and Output Vital Signs (last 24 hours): Temp Pulse Resp BP Pulse Ox 97.9 F 96 H 20 162/86 H 98 08/30/18 07:00 08/30/18 07:00 08/30/18 07:00 08/30/18 09:12 08/30/18 07:00 Intake and Output: 08/30/18 08/30/18 06:59 18:59 Intake Total 350 Output Total 750 Balance -400 - Medications Medications: Current Medications Acetaminophen (Tylenol 325mg Tab) 650 mg PO Q6 PRN PRN Reason: Pain, moderate (4-7) Last Admin: 08/26/18 12:22 Dose: 650 mg Apixaban (Eliquis) 2.5 mg PO BID [facility] Last Admin: 08/30/18 09:13 Dose: 2.5 mg Aspirin (Ecotrin) 81 mg PO DAILY [facility] Last Admin: 08/30/18 09:12 Dose: 81 mg Carvedilol (Coreg) 3.125 mg PO BID [facility] Last Admin: 08/30/18 09:12 Dose: 3.125 mg Ergocalciferol (Drisdol 50,000 Intl Units Cap) 1 cap PO Q7D [facility] Last Admin: 08/25/18 02:57 Dose: Not Given Furosemide (Lasix) 40 mg PO DAILY [facility] Last Admin: 08/30/18 09:12 Dose: 40 mg Piperacillin Sod/Tazobactam Sod (Zosyn 3.375 Gm Iv Premix) 3.375 gm in 50 mls @ 100 mls/hr IVPB Q8H [facility]; Protocol Last Admin: 08/30/18 13:07 Dose: 100 mls/hr Vancomycin HCl 1 gm/ Sodium (Chloride) 250 mls @ 166.7 mls/hr IVPB Q24H [facility]; P rotocol Last Admin: 08/30/18 13:39 Dose: 166.7 mls/hr Insulin Human Regular (Novolin R) 0 unit SC ACHS [facility]; Protocol Last Admin: 08/30/18 12:17 Dose: 8 units Losartan Potassium (Cozaar) 100 mg PO DAILY [facility] Last Admin: 08/30/18 09:12 Dose: 100 mg Polyethylene Glycol (Miralax) 17 gm PO BID [facility] Last Admin: 08/30/18 09:12 Dose: Not Given Pregabalin (Lyrica) 50 mg PO DAILY [facility] Last Admin: 08/30/18 09:12 Dose: 50 mg Rosuvastatin Calcium (Crestor) 5 mg PO HS [facility] Last Admin: 08/29/18 21:10 Dose: 5 mg Sodium Phosphate (Fleet Enema) 135 ml [place] ONCE PRN PRN Reason: Constipation Last Admin: 08/29/18 13:07 Dose: 135 ml Vitamin B Complex/Vit C/Folic Acid (Nephro-Ale) 1 tab PO 0800 [facility] Last Admin: 08/30/18 08:42 Dose: 1 tab Zolpidem Tartrate (Ambien) 5 mg PO HS PRN PRN Reason: Insomnia Last Admin: 08/28/18 22:34 Dose: 5 mg - Labs Labs: 08/28/18 13:58 08/28/18 13:58 PT 12.0 SECONDS (9.7-12.2) 08/25/18 00:20 INR 1.1 08/25/18 00:20 APTT 40 SECONDS (21-34) H 08/25/18 00:20 - Constitutional Appears: Well, Non-toxic, No Acute Distress - Extremities Exam Additional comments: Lower extremity focused exam: Vasc: DP/PT pulses fully palpable 2/4 b/l. Skin temperature warm to warm from proximal to distal. CFT < 3 seconds to all digits. Minimal edema noted around ulceration site Neuro: Epicritic and protective sensation grossly diminished b/l Derm: Ulceration site noted to plantar heel measuring roughly 3 cm x 2 cm x 0.4 cm, no active drainage, Wound base is mainly granular in nature. no malodor, No tracking, tunneling or undermining appreciated. no probe to bone, No other clinical signs of infection noted MSK: Pain with palpation to ulceration site. 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 Tariq Afebrile, absent leukocytosis Wound culture: Pending Continue IV abx per ID Bone scan: No evidence of OM Dressing to be changed with hydrogen peroxide, ABD, DSD Per Dr. Tariq, no plans for surgical intervention at this time Stable from podiatry standpoint Podiatry will continue to follow while patient in house
--- NOTE | 2018-08-30 15:26 | CP.PCM.PN ---
Subjective - Date & Time of Evaluation Date of Evaluation: 08/30/18 Time of Evaluation: 15:26 Objective - Vital Signs/Intake and Output Vital Signs (last 24 hours): Temp Pulse Resp BP Pulse Ox 97.9 F 96 H 20 162/86 H 98 08/30/18 07:00 08/30/18 07:00 08/30/18 07:00 08/30/18 09:12 08/30/18 07:00 Intake and Output: 08/30/18 08/30/18 06:59 18:59 Intake Total 350 700 Output Total 750 Balance -400 700 - Medications Medications: Current Medications Acetaminophen (Tylenol 325mg Tab) 650 mg PO Q6 PRN PRN Reason: Pain, moderate (4-7) Last Admin: 08/26/18 12:22 Dose: 650 mg Apixaban (Eliquis) 2.5 mg PO BID [facility] Last Admin: 08/30/18 09:13 Dose: 2.5 mg Aspirin (Ecotrin) 81 mg PO DAILY [facility] Last Admin: 08/30/18 09:12 Dose: 81 mg Carvedilol (Coreg) 3.125 mg PO BID [facility] Last Admin: 08/30/18 09:12 Dose: 3.125 mg Ergocalciferol (Drisdol 50,000 Intl Units Cap) 1 cap PO Q7D [facility] Last Admin: 08/25/18 02:57 Dose: Not Given Furosemide (Lasix) 40 mg PO DAILY [facility] Last Admin: 08/30/18 09:12 Dose: 40 mg Piperacillin Sod/Tazobactam Sod (Zosyn 3.375 Gm Iv Premix) 3.375 gm in 50 mls @ 100 mls/hr IVPB Q8H [facility]; Protocol Last Admin: 08/30/18 13:07 Dose: 100 mls/hr Vancomycin HCl 1 gm/ Sodium (Chloride) 250 mls @ 166.7 mls/hr IVPB Q24H [facility]; Protocol Last Admin: 08/30/18 13:39 Dose: 166.7 mls/hr Insulin Human Regular (Novolin R) 0 unit SC ACHS [facility]; Protocol Last Admin: 08/30/18 12:17 Dose: 8 units Losartan Potassium (Cozaar) 100 mg PO DAILY [facility] Last Admin: 08/30/18 09:12 Dose: 100 mg Polyethylene Glycol (Miralax) 17 gm PO BID [facility] Last Admin: 08/30/18 09:12 Dose: Not Given Pregabalin (Lyrica) 50 mg PO DAILY [facility] Last Admin: 08/30/18 09:12 Dose: 50 mg Rosuvastatin Calcium (Crestor) 5 mg PO HS [facility] Last Admin: 08/29/18 21:10 Dose: 5 mg Sodium Phosphate (Fleet Enema) 135 ml [place] ONCE PRN PRN Reason: Constipation Last Admin: 08/29/18 13:07 Dose: 135 ml Vitamin B Complex/Vit C/Folic Acid (Nephro-Ale) 1 tab PO 0800 [facility] Last Admin: 08/30/18 08:42 Dose: 1 tab Zolpidem Tartrate (Ambien) 5 mg PO HS PRN PRN Reason: Insomnia Last Admin: 08/28/18 22:34 Dose: 5 mg - Labs Labs: 08/28/18 13:58 08/28/18 13:58 PT 12.0 SECONDS (9.7-12.2) 08/25/18 00:20 INR 1.1 08/25/18 00:20 APTT 40 SECONDS (21-34) H 08/25/18 00:20 Assessment and Plan (1) Diabetic foot ulcer Status: Acute (2) Cellulitis of left lower leg Status: Acute (3) Diabetic neuropathy Status: Acute (4) Renal insufficiency Status: Acute (5) CVA (cerebrovascular accident) Status: Acute
--- NOTE | 2018-08-30 15:59 | PCM.HF ---
Heart Failure Core Measure - Heart Failure Ejection Fraction: 40 % or Greater (EF > 60%) Left Ventricular Function to be assessed after discharge: No LIZZETH Inhibitor Prescribed: No Contraindication/Reason for not providing: pt is on an losartan Beta-Mabel Prescribed: Carvedilol Angiotensin II Receptor Mabel Prescribed: Yes AnticoagulationTherapy for Atrial Fibrillation/Atrialflutter: Yes Aldosterone Antagonist Prescribed: No Contraindication/Reason for not providing: renal dysfunction Hydralazine Nitrate Prescribed: No Contraindication/Reason for not providing: pt EF > 40% Implantable Cardioverter Defibrillator Therapy: No Contraindication/Reason for not providing: pt EF > 60% Cardiac Resynchronization Therapy Prescribed: No Contraindication/Reason for not providing: no idicated - Follow up Will be discharged to: Care Home Facility ([facility]
[2018-08-30 16:25] VITALS: BP 163/93; PULSE 78; TEMP 97.6
--- NOTE | 2018-08-30 21:06 | PN ---
DATE: 08/30/2018 SUBJECTIVE: The patient is seen and examined at the bedside on 08/30/2018, looking comfortable. Finally he had bowel movement, which was good. No fever. No chills. No hematuria or hematochezia. No headache or dizziness. No chest pain or palpitations. PHYSICAL EXAMINATION: VITAL SIGNS: Temperature 97.9, pulse 96, blood pressure 152/83, respiratory rate is 20. HEENT: Atraumatic, normocephalic. Eyes: PERRLA. Extraocular muscles intact. Conjunctivae clear. Nose patent. Mucosal membranes moist. NECK: Supple. No carotid bruit. No JVD or thyromegaly.. CHEST: Bilaterally symmetrical. HEART: S1 and S2 positive. LUNGS: Clear to auscultation. ABDOMEN: Soft. Bowel sounds present. No organomegaly. EXTREMITIES: No edema. No cyanosis. NEUROLOGICAL: The patient is awake and alert, moving all four extremities. No focal deficits. MEDICATIONS: Ambien, Coreg, Cozaar, Crestor, vitamin D, Ecotrin, Eliquis, Fleets enema, Lasix, Lyrica, MiraLax, Tylenol, Zosyn. LABORATORY DATA: White blood cell 9.9, hemoglobin 10.4, hematocrit 31.1. ASSESSMENT AND PLAN: Mr. Jules Campo is a 73-year-old male with anemia, diabetes mellitus, pyuria, hematuria, obesity, getting antibiotics, has a few problems, under the care of the customs compliance specialist presented with multiple medical problems, diabetic foot ulcer, cellulitis in the left lower extremity, diabetic neuropathy, renal insufficiency, cerebrovascular accident, constipation is getting better. Insomnia is getting better. Continue present treatment. Repeat labs. We will follow up. Zuleima Jackson MD [facility]
--- NOTE | 2018-09-03 06:08 | DS ---
The patient seen and examined on 08/30/2018. CHIEF COMPLAINT: Leg pain, foot pain. HISTORY OF PRESENT ILLNESS: The patient is a 73-year-old male, well known to me from previous admissions, came in to [facility] for lethargy, weakness, feverish, pain in the leg. The patient has chronic leg healing wound. The patient is bed-bound. No fever, no chills. No hematuria or hematochezia. No headache or dizziness. No chest pain or palpitation. We admitted the patient; did bone scan, x-ray of the foot, electrocardiography. Seen by Dr. Berlin Guerrero, Infectious Disease for antibiotics and Dr. Edward Ashby, email marketing processor because of chronic constipation, was not getting relieved with all type of stool softener. Seen by security services manager, got antibiotics, improved, sent home to follow up with his own primary care physician and security services manager. PAST MEDICAL HISTORY: Anemia, arthritis, diabetes mellitus, hypertension, hypercholesterolemia, hyperlipidemia, peripheral edema, coronary artery disease, coronary artery stenting, and obesity. FAMILY HISTORY: Father and mother, noncontributory. HABITS: Never smoked. No drugs. No ethanol. REVIEW OF SYSTEMS: Actually, I have a progress note for 08/30/2018. The patient looks comfortable. No fever. No chills. No hematuria. No hematochezia. No headache. No dizziness. No chest pain. No palpitation. PHYSICAL EXAMINATION: VITAL SIGNS: Temperature 97.6, pulse 78, blood pressure 153/93, respiratory rate 20. HEENT: Head: Normocephalic, atraumatic. Eyes: PERRLA. Extraocular muscles are intact. Conjunctivae clear. Nose patent. Mucous membranes moist. NECK: Supple. No carotid bruit. No JVD or thyromegaly. CHEST: Bilaterally symmetrical. HEART: S1 and S2 positive. LUNGS: Clear to auscultation. ABDOMEN: Soft. Bowel sounds present. No organomegaly. EXTREMITIES: Has dressing. NEUROLOGICAL: Awake, alert. Follows simple commands. LABORATORY DATA: White blood cell is 9.9, hemoglobin 10.4, hematocrit 31.1, glucose 386. ASSESSMENT AND PLAN: The patient is a 73-year-old male with leukocytosis, anemia, uncontrolled diabetes mellitus, renal insufficiency, proteinuria, glucosuria, hematuria, history of prostate cancer, coronary artery disease with cardiac stenting, peripheral vascular disease, chronic constipation, tried all laxative and finally we gave enema, cellulitis of lower extremity. Gastroenterology is on the case, suggesting high-fiber diet. Antibiotic was given. Fleet enema was given. Gastrointestinal and deep venous thrombosis prophylaxis given. Discharged the patient home with followup with the primary care physician and security services manager. Zuleima Jackson MD
== END 2018-08-30 17:30 | DRG 638 ==
LOC: C.ER 22:05 → C.5S 08-25 02:01 → UNDOADMOB 08-25 02:01 → C.5S 08-25 14:45 → INTOOBSV 08-27 16:45 → OBSVTOIN 08-27 16:45
PROVIDERS: ADMIT Internal Medicine; ATTEND Internal Medicine
PROC: 05HY33Z Insertion of Infusion Device into Upper Vein, Percutaneous Approach (ICD-10-PCS; principal; 2018-08-30)
DX: E11.621 Type 2 diabetes mellitus with foot ulcer (principal); L03.116 Cellulitis of left lower limb; L97.429 Non-pressure chronic ulcer of left heel and midfoot with unspecified severity; E11.51 Type 2 diabetes mellitus with diabetic peripheral angiopathy without gangrene; E11.40 Type 2 diabetes mellitus with diabetic neuropathy, unspecified; Z79.4 Long term (current) use of insulin; Z74.01 Bed confinement status; E66.01 Morbid (severe) obesity due to excess calories; E78.00 Pure hypercholesterolemia, unspecified; M19.90 Unspecified osteoarthritis, unspecified site; I10 Essential (primary) hypertension; D64.9 Anemia, unspecified; E11.65 Type 2 diabetes mellitus with hyperglycemia; Z95.5 Presence of coronary angioplasty implant and graft; Z86.73 Personal history of transient ischemic attack (TIA), and cerebral infarction without residual deficits; J44.9 Chronic obstructive pulmonary disease, unspecified; Z85.46 Personal history of malignant neoplasm of prostate; I25.10 Atherosclerotic heart disease of native coronary artery without angina pectoris; G47.00 Insomnia, unspecified; L40.9 Psoriasis, unspecified; E11.21 Type 2 diabetes mellitus with diabetic nephropathy; E11.319 Type 2 diabetes mellitus with unspecified diabetic retinopathy without macular edema; K59.09 Other constipation